=== PATIENT | female | born 1960 | race Caucasian/White ===

== ENCOUNTER 2023-07-28 06:26 | Emergency (ER) | payer MEDICARE, MEDICAID, SELFPAY ==
[2023-07-28 06:27] VITALS: BP 139/82; PULSE 85; RESP 16; TEMP 36.8; O2SAT 95; BMI 37.3
[2023-07-28 06:30] VITALS: BP 139/82; PULSE 86; RESP 17; TEMP 36.8; O2SAT 93
[2023-07-28] MEDS: HYDROmorphone 1 MG/ML Syringe IV (06:58)
[2023-07-28] MEDS: 0.9% Normal Saline (1000mL) 1,000 ML 999 ML IV (06:59)
[2023-07-28] MEDS: proCHLORPERazine 10 MG/2 ML Vial IV (06:59)
--- NOTE | 2023-07-28 07:49 | EX.ED.DYSGE1 ---
HPI History of Present Illness Chief Complaint: Nausea/Vomiting/Diarrhea Informant: patient Narrative Narrative: Patient is a 63-year-old female with past medical history of COPD as well as chronic pain on Belbuca. She states over the last 24 hours she has had recurrent bouts of nausea vomiting and diarrhea. She states that there is no blood or discoloration to the emesis or diarrhea. She denies any known sick contact. She states that there has been no recent antibiotic use travel outside the country or exposure to livestock. She denies any history of intestinal disorder. She states that she has not been unable to keep any of her home medication down despite having oral Zofran and with concern for dehydration presents for evaluation [facility] Medical History COPD (chronic obstructive pulmonary disease) Kidney stones On home oxygen therapy Home Medications diphenoxylate-atropine 2.5 mg-0.025 mg tablet (Lomotil) 1 tab PO TID PRN diarrhea 5 days #15 tabs 07/28/23 [Rx Last Taken Unknown] promethazine 12.5 mg tablet 12.5 mg PO TID PRN nausea and vomiting #21 tabs 07/28/23 [Rx Last Taken Unknown] Allergy/AdvReac Type Severity Reaction Status Date / Time ropinirole [From Requip] Allergy Severe Anaphylaxis Verified 07/28/23 06:35 latex Allergy Mild Rash Verified 07/28/23 06:35 mold AdvReac PT UNSURE Verified 07/28/23 06:35 OF REACTION Surgical History (Updated 07/28/23 @ 06:34 by Lexie Gaitan) H/O: hysterectomy History of appendectomy History of cholecystectomy Social History Smoking Status: Current every day smoker tobacco type: e-cigarettes ROS ROS ED Constitutional Constitutional ED: Reports chills, fever(s) and subjective Eyes Eyes: Denies change in vision ENT ENT ED: Denies sore throat Cardiovascular Cardiovascular: Denies chest pain Respiratory/Chest Respiratory/Chest: Denies cough or dyspnea Gastrointestinal Gastrointestinal: Reports abdominal pain, diarrhea, nausea and vomiting Genitourinary Genitourinary ED: Denies dysuria Musculoskeletal Musculoskeletal: Reports myalgias Integumentary Denies rash Neurologic Neurologic: Denies headache(s) or paresthesias Hematologic/Lymphatic Hematologic/Lymphatic: Denies easy bleeding or easy bruising EXAM Physical Exam Const Vital Signs: 07/28/23 06:27 07/28/23 06:30 07/28/23 08:26 Temperature 98.2 F 98.2 F Temperature Source Oral Oral Pulse Rate 85 86 89 Respiratory Rate 16 17 18 Blood Pressure 139/82 H 139/82 H 152/83 H Blood Pressure Mean 101 101 106 Pulse Ox 95 93 94 Oxygen Delivery Method Room Air Room Air Room Air Positive well nourished, well developed and obese General Appearance ED: well developed Nutritional Appearance: obese HEENT Reports dry mucous membranes HEENT Narrative: Mucous membranes are dry and tacky No secondary changes in the posterior pharynx to suggest infection No tongue or lip swelling no oral lesions no airway edema or compromise Mouth ED: Yes dry mucous membranes Mouth: dry mucous membranes Eyes PERRL and EOMs intact bilaterally General Eye ED: Negative for scleral icterus Neck supple Neck Narrative: No nuchal rigidity or meningeal signs noted Resp normal respiratory effort and clear to auscultation bilaterally Cardio regular rate and regular rhythm Rate: other Other Details: Radial and carotid pulses are equal and symmetric GI non-tender and non-distended GI Narrative: Abdomen is soft nontender nondistended with hyperactive bowel sounds No voluntary guarding or rigidity or pulsatile mass No fluid wave noted Auscultation: hyperactive bowel sounds Palpation: soft Extremity normal to inspection Neuro oriented x3, CN's II-XII intact bilaterally and no sensory deficits noted Sensorium / Orientation: alert Motor Exam: strength 5/5 throughout Psych mental status grossly normal Skin no rashes or lesions noted Skin Narrative: Skin turgor is increased General Skin Exam: Negative for jaundice MDM MDM MDM Narrative Medical decision making narrative: Patient presented to the ER with stable vitals but reported roughly 24 hours of nausea vomiting diarrhea. Differential diagnosis is for viral infection such as COVID versus influenza versus [place] or rotavirus. With 24 hours of persistent symptoms there is also concern for severe electrolyte derangement or acute kidney injury. The patient has had a hysterectomy cholecystectomy and appendectomy but she is not distended and is having bowel movements and passing gas going against concern for ileus or obstruction and therefore do not feel there is need for an emergent CT scan upon arrival. Patient blood work will be obtained to check for electrolyte derangement or [place] or potential pancreatitis and to be rehydrated with IV fluid and given IV Compazine as Zofran is failed at home. I feel that if labs revealed no clinically significant findings and patient reports feeling better with treatment then she be transitioned to oral medication and discharged home with outpatient follow-up Patient's labs and response to treatment are still pending and therefore patient be signed out to the day physician Dr. Jarquin History & Record Review Discussion w/independent historian: Patient Lab Data Labs: Laboratory Results - last 24 hr 07/28/23 08:28 WBC 12.2 H RBC 4.66 Hgb 14.0 Hct 42.2 MCV 90.6 MCH 30.0 MCHC 33.2 RDW Std Deviation 41.6 RDW Coeff of Pravin 12.6 Plt Count 285 MPV 9.8 Immature Gran % (Auto) 0.300 Neut % (Auto) 78.3 H Lymph % (Auto) 13.6 L [place] % (Auto) 7.5 Eos % (Auto) 0.1 Baso % (Auto) 0.2 Absolute Neuts (auto) 9.6 H Absolute Lymphs (auto) 1.67 Nucleated RBC % 0 Discharge Plan Triage Chief Complaint: Nausea/Vomiting/Diarrhea ED Provider: Trevor Douglass Dx/Rx/DC Orders Clinical Impression: Nausea vomiting and diarrhea, Dehydration, Chronic pain Instructions: Dehydration, ED Gastroenteritis, Viral (Adult) Prescriptions: New promethazine 12.5 mg tablet 12.5 mg PO TID PRN (Reason: nausea and vomiting) Qty: 21 0RF diphenoxylate-atropine [Lomotil] 2.5-0.025 mg tablet 1 tab PO TID PRN (Reason: diarrhea) 5 Days Qty: 15 0RF Primary Care Provider: Care Physician,No Primary Referrals: Norman Mack, [Non-Staff] - Activity Restrictions/Additional Instructions: Please keep yourself well-hydrated and use of Lomotil to stop the loose stool/diarrhea and you may add the Phenergan/promethazine on top of the Zofran if needed for further nausea/vomit control. If you have any further concerns or worsening symptoms please return for repeat evaluation
[2023-07-28] MEDS: Ondansetron 4 MG/2 ML Vial IV (08:15)
[2023-07-28] MEDS: HYDROmorphone 0.5 MG/0.5 ML SYRINGE IV (08:25)
[2023-07-28] MEDS: 0.9% Normal Saline (500mL Bag) 500 ML 999 ML IV (08:25)
[2023-07-28 08:26] VITALS: BP 152/83; PULSE 89; RESP 18; O2SAT 94
[2023-07-28 08:37] LABS: Absolute Lymphocyte Count 1.67 X10^3/uL (0.83-4.51); Absolute Neutrophil Count 9.6 X10^3/uL (2.0-7.7); Basophil# 0.02 X10^3/uL; Basophil% 0.2 % (0-1); Eosinophil# 0.01 X10^3/uL; Eosinophils% 0.1 % (0-5); Hematocrit 42.2 % (37-47); Lymphocyte # 1.67 X10^3/ul (0.83-4.51); Lymphocyte % 13.6 % (19-41); Mean Corp Hgb Conc 33.2 g/dL (32-36); Mean Corpuscular Volume 90.6 fL (81-99); Mean Platelet Vol. 9.8 fl (6.2-12.0); Monocyte# 0.92 X10^3/uL; Monocyte% 7.5 % (0-10); NRBC Flagged by Analyzer 0 % (0-5); Neutrophil # 9.58 X10^3/uL (2.7-7.7); Neutrophil % 78.3 % (47-70); Platelet Count 285 K/mm3 (150-450); RBC Distribution Width CV 12.6 % (11.6-14.6); RBC Distribution Width SD 41.6 fl (35.1-43.9); Red Blood Count 4.66 M/mm3 (4.2-5.4); White Blood Count 12.2 K/mm3 (4.4-11.0)
[2023-07-28 09:03] LABS: AST(SGOT) 18 U/L (15-37); Alanine Aminotransfer ALT/SGPT 20 U/L (13-56); Alkaline Phosphatase 73 U/L (45-117); Anion Gap 4 (5-15); BUN 8 mg/dL (7-18); Bilirubin, Direct 0.15 mg/dL (0.00-0.30); Calcium,Total 8.5 mg/dL (8.5-10.1); Chloride 106 mmol/L (98-107); Creatinine, Serum 0.73 mg/dL (0.55-1.02); EST Glomerular Filtration Rate 85 mL/min (>60); Est Glom Filt Rate - Afr Amer 103 mL/min (>60); Estimated Creatinine Clearance 79.98 ml/min; Globulin 4.4 g/dL (2.2-4.2); Glucose 137 mg/dL (74-106); Lipase 19 U/L (13-75); Magnesium 2.1 mg/dL (1.6-2.6); Potassium 3.5 mmol/L (3.5-5.1); Protein, Total 7.4 g/dL (6.4-8.2); Sodium Level 135 mmol/L (136-145)
[2023-07-28] MEDS: HYDROmorphone 0.5 MG/0.5 ML SYRINGE IM (09:35)
[2023-07-28] MEDS: proMETHazine 25 MG/ML Syringe 12.5 MG IM (09:35)
[2023-07-28 09:48] VITALS: BP 145/87; PULSE 117; RESP 20; O2SAT 95
== END 2023-07-28 09:50 | disposition home or self-care (01) ==
PROVIDERS: Emergency Medicine; Emergency Provider Emergency Medicine; Visit Provider Emergency Medicine
DX: R11.2 Nausea with vomiting, unspecified (principal); J44.9 Chronic obstructive pulmonary disease, unspecified; R19.7 Diarrhea, unspecified; E86.0 Dehydration; G89.29 Other chronic pain; F17.290 Nicotine dependence, other tobacco product, uncomplicated; E66.9 Obesity, unspecified; Z68.37 Body mass index [BMI] 37.0-37.9, adult; Z90.49 Acquired absence of other specified parts of digestive tract; Z99.81 Dependence on supplemental oxygen
CPT/HCPCS: 36415; 80048; 80076; 83690; 83735; 85025; 87631; 96361; 96372; 96374; 96375; 96376; 99282; J7040; A4216; J2405

== ENCOUNTER 2024-08-07 16:02 | Observation (INO) | payer MEDICARE, MEDICAID, SELFPAY ==
[2024-08-07 16:05] VITALS: BP 108/64; PULSE 68; RESP 18; TEMP 36.9; O2SAT 91
[2024-08-07 17:12] VITALS: BP 138/87; PULSE 78; RESP 16; TEMP 36.8; O2SAT 98
[2024-08-07] MEDS: Ondansetron 4 MG/2 ML Vial IV (17:40)
[2024-08-07] MEDS: 0.9% Normal Saline (1000mL) 1,000 ML 1000 ML IV (17:40)
[2024-08-07] MEDS: HYDROmorphone 1 MG/ML Syringe IV ×3 (17:41→22:46)
[2024-08-07 17:45] LABS: Color, Urine Yellow (Yellow); Glucose, Dipstick Normal (Normal); Ketone-Dipstick 50 mg/dl (Negative); Leukocyte Esterase-Dipstick 500 /ul (Negative); Nitrite-Dipstick Negative (Negative); Occult Blood-Urine 25 /ul (Negative); Protein-Dipstick 30 mg/dl (Negative); Urine Clarity Sl. Cloudy (Clear); Urine Urobilinogen 1 mg/dl (Normal)
[2024-08-07 17:53] LABS: Urine Bilirubin Dipstick 1 mg/dL (Negative)
[2024-08-07 18:00] VITALS: BP 138/59; PULSE 77; RESP 16; TEMP 36.9; O2SAT 95
[2024-08-07 18:00] LABS: ALB/GLOB Ratio 0.7 RATIO (0.9-2.4); AST(SGOT) 37 U/L (15-37); Alanine Aminotransfer ALT/SGPT 27 U/L (13-56); Albumin, Serum 3.2 g/dL (3.2-5.0); Alkaline Phosphatase 69 U/L (45-117); Anion Gap 8 (5-15); BUN 15 mg/dL (7-18); CPK Total, Creatine Kinase 115 U/L (26-192); Calcium,Total 9.1 mg/dL (8.5-10.1); Chloride 98 mmol/L (98-107); Creatinine, Serum 0.94 mg/dL (0.55-1.02); EST Glomerular Filtration Rate 63 mL/min (>60); Est Glom Filt Rate - Afr Amer 77 mL/min (>60); Globulin 4.8 g/dL (2.2-4.2); Glucose 102 mg/dL (74-106); Magnesium 2.2 mg/dL (1.6-2.6); Potassium 3.9 mmol/L (3.5-5.1); Sodium Level 134 mmol/L (136-145)
--- NOTE | 2024-08-07 18:00 | RAD_ITS ---
PROCEDURE: AP and lateral chest radiographs, two views TECHNIQUE: AP and lateral chest radiographs were obtained. COMPARISON: None. FINDINGS: The cardiomediastinal silhouette is unremarkable. Mild elevation right hemidiaphragm. The bones are osteopenic with degenerative changes in the spine. The lungs are mildly hyperinflated. No focal airspace consolidation, pneumothorax, or pleural effusion. RAD/Chest PA and Lateral IMPRESSION: Pulmonary hyperinflation. No acute cardiopulmonary process is demonstrated. If there are persistent symptoms or clinical concern, short-term follow-up CT e valuation may be helpful. Reading Location: [facility]
[2024-08-07 18:14] LABS: White Blood Cells >100 SEEN /hpf (0-5)
[2024-08-07 18:15] LABS: Bacteria 1+ /hpf (None Seen); Mucous, Urine 1+ /hpf (<or=2+); Red Blood Cells-Urine 0-5 SEEN /hpf (0-5); Squamous Epithelial Cells - UA 10-25 SEEN /hpf (5-10)
--- NOTE | 2024-08-07 18:35 | CM.ED ---
Social work Reason for referral: no PCP Referral source: case find This SW identified patient's lack of PCP and need for resources. This SW entered patient's room, introducing self and role at [facility]. Patient welcomed SW visit and introduced patient's grandson, Cr, and grandson's , Meagan, who were present at bedside. Patient reported having a new PCP who patient forgot the name of earlier when asked by registration. Patient reports seeing Dr. Pierce in [place] for primary care; this was updated on patient's chart. Patient denied further resources at this time. Victoria Moses, ARCHITECTURE DRAFTER, AFFILIATE MARKETING SPECIALIST
[2024-08-07 18:42] VITALS: PULSE 68; RESP 20
[2024-08-07] MEDS: Ipratropium/Albuterol Sulfate 3 ML AMPUL.NEB INHALATION (18:42)
[2024-08-07 18:49] LABS: Absolute Lymphocyte Count 1.24 X10^3/uL (0.83-4.51); Absolute Neutrophil Count 4.2 X10^3/uL (2.0-7.7); Basophil# 0.02 X10^3/uL; Basophil% 0.3 % (0-1); Hematocrit 44.4 % (37-47); Hemoglobin 14.5 g/dL (12.0-15.0); Lymphocyte # 1.24 X10^3/ul (0.83-4.51); Lymphocyte % 18.4 % (19-41); Mean Corp Hgb Conc 32.7 g/dL (32-36); Mean Corpuscular Hgb 29.3 pg (27.0-32.0); Mean Corpuscular Volume 89.7 fL (81-99); Mean Platelet Vol. 9.9 fl (6.2-12.0); Monocyte# 1.23 X10^3/uL; Monocyte% 18.2 % (0-10); NRBC Flagged by Analyzer 0 % (0-5); Neutrophil # 4.24 X10^3/uL (2.7-7.7); Neutrophil % 62.8 % (47-70); Platelet Count 259 K/mm3 (150-450); RBC Distribution Width CV 12.3 % (11.6-14.6); RBC Distribution Width SD 40.3 fl (35.1-43.9); Red Blood Count 4.95 M/mm3 (4.2-5.4); White Blood Count 6.8 K/mm3 (4.4-11.0)
[2024-08-07 20:00] VITALS: BP 138/88; PULSE 78
--- NOTE | 2024-08-07 21:29 | PCM.HP.STD ---
HPI - General General Date of Admission: 08/07/24 Date of Service: 08/07/24 Chief Complaint: Generalized weakness HPI Narrative WILBERT JOHNSON, is a 64 F who presents to the emergency room with chief complaint of generalized weakness. Patient has significant past medical history of COPD with [id number] history of smoking for which she uses 2 L nasal cannula oxygen routinely. Patient reports feeling more significantly weak and having trouble ambulating on her own safely today. She also has concurrent urinary tract symptoms with dysuria. In the emergency room she is diagnosed positive for influenza A. She also has significant past medical history of fibromyalgia for which she takes Belbuca from pain management. Patient does not feel she can go home due to her weakness. She will be admitted overnight for observation for treatment of urinary tract infection and started on Tamiflu for her influenza with anticipated discharge tomorrow. [facility] Medical History (Updated 08/07/24 @ 21:[address] Julio Blake MD) COPD (chronic obstructive pulmonary disease) On home oxygen therapy Kidney stones Home Medications ?Medication ?Instructions ?Recorded ?Last Taken ?Type Saccharomyces boulardii 250 mg 250 mg PO DAILY 08/07/24 Unknown History capsule (Probiotic (S.boulardii)) budesonide 160 mcg-glycopyr 9 2 inh inhalation BID 08/07/24 Unknown History mcg-formot 4.8 mcg/actuation HFA inhaler (Breztri Aerosphere) cholecalciferol (vitamin D3) 125 125 mcg PO DAILY 08/07/24 Unknown History mcg (5,000 unit) capsule fexofenadine 180 mg tablet 180 mg PO DAILY 08/07/24 Unknown History (Allergy Relief (fexofenadine)) fluoxetine 20 mg capsule 20 mg PO QHS 08/07/24 Unknown History fluoxetine 40 mg capsule 40 mg PO DAILY 08/07/24 Unknown History fluticasone propionate 50 1 spray intranasal DAILY 08/07/24 Unknown History mcg/actuation nasal spray,suspension folic acid 1 mg tablet 1 mg PO DAILY 08/07/24 Unknown History gabapentin 800 mg tablet 800 mg PO 4X/DAY 08/07/24 Unknown History omeprazole 40 mg capsule,delayed 40 mg PO DAILY 08/07/24 Unknown History release potassium chloride 20 mEq 20 meq PO DAILY 08/07/24 Unknown History tablet,extended release(part/cryst) roflumilast 500 mcg tablet 500 mcg PO DAILY 08/07/24 Unknown History sucralfate 1 gram tablet 1 g PO DAILY 08/07/24 Unknown History tizanidine 4 mg tablet 4 mg PO TID PRN muscle spasticity 08/07/24 Unknown History vitamin B complex 1 cap PO DAILY 08/07/24 Unknown History Allergy/AdvReac Type Severity Reaction Status Date / Time ropinirole (From Requip) Allergy Severe Anaphylaxis Verified 08/07/24 16:05 latex Allergy Mild Rash Verified 08/07/24 16:05 mold AdvReac PT UNSURE Verified 08/07/24 16:05 OF REACTION Surgical History H/O: hysterectomy History of appendectomy History of cholecystectomy Social History (Updated 08/07/24 @ 16:58 by Agustina Quiros) household members: family housing: house Smoking Status: Current every day smoker tobacco type: e-cigarettes ROS Constitutional Constitutional: Reports chills and fever(s) Eyes Eyes: Denies blurry vision ENT HEENT: Denies abnormal hearing Cardiovascular Cardiovascular: Denies chest pain Respiratory/Chest Respiratory/Chest: Reports cough and shortness of breath with exertion Gastrointestinal Gastrointestinal: Denies abdominal pain Genitourinary Genitourinary: Reports dysuria Musculoskeletal Musculoskeletal: Reports back pain and joint pain Integumentary Integumentary: Denies dry skin Neurologic Neurologic: Denies abnormal speech Psychiatric Psychiatric: Reports anxiety Vital Signs Vital Signs Vital Signs: 08/07/24 16:05 08/07/24 16:57 08/07/24 17:12 Temperature 98.4 F 98.3 F Temperature Source Oral Oral Pulse Rate 68 78 Respiratory Rate 18 16 Respiratory Effort Normal Non-Labored Respiratory Pattern Normal Blood Pressure 108/64 138/87 H Blood Pressure Mean 78 104 Pulse Ox 91 98 Oxygen Delivery Method Room Air Nasal Cannula Oxygen Flow Rate (L/min) 2 08/07/24 18:00 08/07/24 18:42 08/07/24 20:00 Temperature 98.5 F Temperature Source Oral Pulse Rate 77 68 78 Respiratory Rate 16 20 H Respiratory Effort Respiratory Pattern Normal Blood Pressure 138/59 H 138/88 H Blood Pressure Mean 85 104 Pulse Ox 95 Oxygen Delivery Method Room Air Oxygen Flow Rate (L/min) Physical Exam Const oriented x3 General Appearance: cooperative and well developed HEENT normocephalic and head/scalp atraumatic Eyes PERRL Neck no lymphadenopathy Lymph Lymphatic: no lymphadenopathy noted Resp normal respiratory effort and normal air movement Auscultation: wheezes expiratory wheezes Cardio regular rate, regular rhythm, S1 normal heart sound, S2 normal heart sound and no murmurs GI normal to inspection, nondistended, normoactive bowel sounds Extremity normal capillary refill Skin General Skin Exam: no breakdown and turgor normal Neuro no focal motor deficits and no sensory deficits noted Psych thought process normal, cooperative and affect normal Results Lab / Micro Data 08/07/24 18:15 08/07/24 17:33 Labs: Laboratory Results - last 24 hr 08/07/24 17:33: WBC Cancelled, Corrected WBC Cancelled, RBC Cancelled, Hgb Cancelled, Hct Cancelled, MCV Cancelled, MCH Cancelled, MCHC Cancelled, RDW Std Deviation Cancelled, RDW Coeff of Pravin Cancelled, Plt Count Cancelled, MPV Cancelled, Immature Gran % (Auto) Cancelled, Neut % (Auto) Cancelled, Lymph % (Auto) Cancelled, [place] % (Auto) Cancelled, Eos % (Auto) Cancelled, Baso % (Auto) Cancelled, Absolute Neuts (auto) Cancelled, Absolute Lymphs (auto) Cancelled, Total Counted Cancelled, Neutrophils % (Manual) Cancelled, Band Neutrophils % Cancelled, Lymphocytes % (Manual) Cancelled, Monocytes % (Manual) Cancelled, Eosinophils % (Manual) Cancelled, Basophils % (Manual) Cancelled, Metamyelocytes % Cancelled, Myelocytes % Cancelled, Promyelocytes % Cancelled, Blast Cells % Cancelled, Plasma Cell % (Manual) Cancelled, Other Cells % Cancelled, Nucleated RBC % Cancelled, Nucleated RBCs/100 WBC Cancelled, Differential Comment Cancelled, Diff Path Review Cancelled, Hypersegmented Neuts Cancelled, Atypical Lymphocytes Cancelled, Reactive Lymphocytes Cancelled, Smudge Cells Cancelled, Toxic Granulation Cancelled, Toxic Vacuolation Cancelled, Dohle Bodies Cancelled, [place] Rods Cancelled, Platelet Estimate Cancelled, Plt Morphology Comment Cancelled, RBC Morphology Cancelled 08/07/24 17:33: RBC Morphology Cancelled, Polychromasia Cancelled, Hypochromasia Cancelled, Basophilic Stippling Cancelled, Anisocytosis Cancelled, Microcytosis Cancelled, Macrocytosis Cancelled, Spherocytes Cancelled, Sickle Cells Cancelled, Target Cells Cancelled, Tear Drop Cells Cancelled, Ovalocytes Cancelled, Stomatocytes Cancelled, [place] Bodies Cancelled, [place] Cells Cancelled, Bite Cells Cancelled, Crenated Cell Cancelled, Acanthocytes (Spur) Cancelled, Rouleaux Cancelled, Schistocytes Cancelled, Sodium 134 L, Potassium 3.9, Chloride 98, Carbon Dioxide 29.0, Anion Gap 8, BUN 15, Creatinine 0.94, Est GFR (MDRD) Af Amer 77, Est GFR (MDRD) Non-Af 63, BUN/Creatinine Ratio 16.0, Glucose 102, Calcium 9.1, Magnesium 2.2, Total Bilirubin 0.30, AST 37, ALT 27, Alkaline Phosphatase 69, Total Creatine Kinase 115, Total Protein 8.0, Albumin 3.2, Globulin 4.8 H, Albumin/Globulin Ratio 0.7 L, Urine Color Yellow, Urine Clarity Sl. Cloudy, Urine pH 5.0, Ur Specific [place] 1.030, Urine Protein 30 H, Urine Glucose (UA) Normal, Urine Ketones 50 H, Urine Occult Blood 25 H, Urine Nitrite Negative, Urine Bilirubin 1 H, Urine Urobilinogen 1 H, Ur Leukocyte Esterase 500 H, Urine RBC 0-5 SEEN, Urine WBC >100 SEEN, Ur Squamous Epith Cells 10-25 SEEN, Urine Bacteria 1+, Urine Mucus 1+ 08/07/24 18:15: WBC 6.8, RBC 4.95, Hgb 14.5, Hct 44.4, MCV 89.7, MCH 29.3, MCHC 32.7, RDW Std Deviation 40.3, RDW Coeff of Pravin 12.3, Plt Count 259, MPV 9.9, Immature Gran % (Auto) 0.300, Neut % (Auto) 62.8, Lymph % (Auto) 18.4 L, [place] % (Auto) 18.2 H, Eos % (Auto) 0.0, Baso % (Auto) 0.3, Absolute Neuts (auto) 4.2, Absolute Lymphs (auto) 1.24, Nucleated RBC % 0 Micro: Microbiology 08/07/24 17:35 Mucosa - Nose SARS-CoV-2, Influenza & RSV (PCR) - Final Influenzae A Imaging Radiology Impression Chest X-Ray 08/07/24 18:00 IMPRESSION: Pulmonary hyperinflation. No acute cardiopulmonary process is demonstrated. If there are persistent symptoms or clinical concern, short-term follow-up CT evaluation may be helpful. Reading [facility] Assessment & Plan Assessment/Plan (1) Influenza A: (2) UTI (urinary tract infection): (3) Fibromyalgia: (4) On home oxygen therapy: (5) COPD (chronic obstructive pulmonary disease): PLAN: Plan 1 generalized weakness, secondary to urinary tract infection and influenza A infection.?Admit patient to general medical floor, initiate Tamiflu 75 mg p.o. twice daily for influenza and Rocephin at 1 g IV every 24 hours to treat her urinary tract infection. Patient is able to tolerate p.o. Will encourage p.o. fluids overnight through the morning 2. COPD?continue routine oxygen treatment at 2 L nasal cannula and add as needed albuterol 3. Fibromyalgia patient is on chronic opiates?will bridge patient overnight with as needed Dilaudid 4. DVT prophylaxis?SCDs
[2024-08-07] MEDS: Ceftriaxone 1 GM/50 ML BAG IV (21:41)
--- NOTE | 2024-08-07 21:55 | EDS_ITS ---
HPI History of Present Illness Chief Complaint: General Illness Informant: patient Narrative Narrative: Patient is a 64-year-old female with history of fibromyalgia, chronic pain (on [place]) and gastric ulcer disease presenting with 3 days of flulike symptoms. Patient states that she has been having headache from hell for the past 3 days. States she does have a history of sinus headaches. She states she is having bilateral ear pain and feels like there icepick's in her ear starting this morning. She notes she has had a mild cough. She does have a history of COPD wears 2 L of oxygen at baseline. Denies any associated chest pain. Does have nausea. Is also management of urinary tract infection she has had some urinary frequency. Her daughter thought she saw some blood in her urine. She has chronic urgency. She denies any dysuria. She is complaining of lower abdominal/suprapubic pain. She has had sick contacts at home. She is most distressed because she has not been able to take her chronic pain medication because of her severe nausea and this is making her chronic pain worse as well. Denies any associated numbness or tingling no other complaints or concerns reported. [facility] Medical History COPD (chronic obstructive pulmonary disease) On home oxygen therapy Kidney stones Home Medications ?Medication ?Instructions ?Recorded ?Last Taken ?Type Saccharomyces boulardii 250 mg 250 mg PO DAILY 5 Unknown History capsule (Probiotic (S.boulardii)) budesonide 160 mcg-glycopyr 9 2 inh inhalation BID Unknown History mcg-formot 4.8 mcg/actuation HFA inhaler (Breztri Aerosphere) cholecalciferol (vitamin D3) 125 125 mcg PO DAILY 07/22 01/12 Unknown History mcg (5,000 unit) capsule fexofenadine 180 mg tablet 180 mg PO DAILY 08/07/24 Un known History (Allergy Relief (fexofenadine)) fluoxetine 20 mg capsule 20 mg PO QHS 08/07/24 Unknow n History fluoxetine 40 mg capsule 40 mg PO DAILY 08/07/24 Unkn own History fluticasone propionate 50 1 spray intranasal DAILY Unknown History mcg/actuation nasal spray,suspension folic acid 1 mg tablet 1 mg PO DAILY 08/07/24 Unkno wn History gabapentin 800 mg tablet 800 mg PO 4X/DAY 08/07/24 Un known History omeprazole 40 mg capsule,delayed 40 mg PO DAILY Unknown History release potassium chloride 20 mEq 20 meq PO DAILY 08/07/24 Unk nown History tablet,extended release(part/cryst) roflumilast 500 mcg tablet 500 mcg PO DAILY 08/07/24 U nknown History sucralfate 1 gram tablet 1 g PO DAILY 08/07/24 Unknow n History tizanidine 4 mg tablet 4 mg PO TID PRN muscle spast icity 08/07/24 Unknown History vitamin B complex 1 cap PO DAILY 08/07/24 Unkn own History Allergy/AdvReac Type Severity Reaction Status Date / Time ropinirole (From Requip) Allergy Severe Anaphylaxis Verified 08/07/24 16:05 latex Allergy Mild Rash Verified 08/07/24 16:05 mold AdvReac PT UNSURE Verified 08/07/24 16:05 OF REACTION Surgical History H/O: hysterectomy History of appendectomy History of cholecystectomy Social History household members: family housing: house Smoking Status: Current every day smoker tobacco type: e-cigarettes ROS ROS ED Constitutional Constitutional ED: Reports chills ENT ENT ED: Reports ear pain bilateral, sore throat and other Details: congestion Cardiovascular Cardiovascular: Denies chest pain Respiratory/Chest Respiratory/Chest: Reports cough and dyspnea Gastrointestinal Gastrointestinal: Reports abdominal pain and nausea; Denies constipation, diarrhea or vomiting Genitourinary Genitourinary ED: Reports dysuria, hematuria and urinary frequency Musculoskeletal Musculoskeletal: Reports arthralgias and myalgias Integumentary Denies rash Neurologic Neurologic: Reports headache(s) and weakness Psychiatric Psychiatric: Reports anxiety Hematologic/Lymphatic Hematologic/Lymphatic: Denies easy bleeding or easy bruising EXAM Physical Exam Const Vital Signs: 08/07/24 16:05 08/07/24 16:57 08/07/24 17:12 Temperature 98.4 F 98.3 F Temperature Source Oral Oral Pulse Rate 68 78 Respiratory Rate 18 16 Respiratory Effort Normal Non-Labored Respiratory Pattern Normal Blood Pressure 108/64 138/87 H Blood Pressure Mean 78 104 Pulse Ox 91 98 Oxygen Delivery Method Room Air Nasal Cannula Oxygen Flow Rate (L/min) 2 08/07/24 18:00 08/07/24 18:42 08/07/24 20:00 Temperature 98.5 F Temperature Source Oral Pulse Rate 77 68 78 Respiratory Rate 16 20 H Respiratory Effort Respiratory Pattern Normal Blood Pressure 138/59 H 138/88 H Blood Pressure Mean 85 104 Pulse Ox 95 Oxygen Delivery Method Room Air Oxygen Flow Rate (L/min) Positive well nourished and well developed General Appearance ED: well developed and NAD HEENT Reports TM's clear and dry mucous membranes Tympanic Membrane ED: Yes TM's clear Mouth ED: Yes dry mucous membranes Mouth: dry mucous membranes Eyes PERRL Neck no lymphadenopathy, supple and no JVD Chest Wall inspection of chest normal Resp Auscultation: wheezes and diminished lung sounds bilateral lower Cardio regular rate and regular rhythm GI normal to inspection, nondistended, normoactive bowel sounds Auscultation: normoactive bowel sounds Palpation: tender suprapubic Extremity normal to inspection General Extremety ED: Negative for edema General Extremity: Negative for edema Neuro oriented x3 Sensorium / Orientation: alert Motor Exam: general weakness Psych mental status grossly normal Skin no rashes or lesions noted and no wounds MDM MDM MDM Narrative Medical decision making narrative: Patient is a 4-year-old female with history of COPD and chronic pain/fibromyalgia on 2 L of oxygen at baseline presenting with nausea, worsening respiratory symptoms as well as UTI symptoms. Differential includes pneumonia, sepsis, COPD exacerbation, chronic pain exacerbation, influenza, urinary tract infection, opioid withdrawal. Her pain is diffuse in her headache and I do not suspect meningitis. She does not have any nuchal rigidity. Is given Dilaudid for pain control x 2. Given IV fluids. Given a breathing treatment with DuoNebs. Patient is found to have influenza A. In addition urinalysis consistent with infection with greater than 100 white blood cells and 1+ bacteria. Patient started on IV Rocephin. No prior urine cultures to compare to. She does not have a leukocytosis. Attempted to ambulate patient but she states that she is still in too much pain and feels too weak to ambulate. She has not felt comfortable going home. She states she has to be stairs in her house. Suspect this is more debility associate with her being off of her pain medication, her acute influenza and urinary tract infection. Will be brought in for further treatments, antibiotics and pain control. Case discussed with Dr. Blake Lab Data Attestation: I reviewed the patient's lab results. Labs: Laboratory Results - last 24 hr 08/07/24 08/07/24 08/07/24 17:33 17:33 18:15 WBC Cancelled 6.8 Corrected WBC Cancelled RBC Cancelled 4.95 Hgb Cancelled 14.5 Hct Cancelled 44.4 MCV Cancelled 89.7 MCH Cancelled 29.3 MCHC Cancelled 32.7 RDW Std Deviation Cancelled 40.3 RDW Coeff of Pravin Cancelled 12.3 Plt Count Cancelled 259 MPV Cancelled 9.9 Immature Gran % (Auto) Cancelled 0.300 Neut % (Auto) Cancelled 62.8 Lymph % (Auto) Cancelled 18.4 L Ida % (Auto) Cancelled 18.2 H Eos % (Auto) Cancelled 0.0 Baso % (Auto) Cancelled 0.3 Absolute Neuts (auto) Cancelled 4.2 Absolute Lymphs (auto) Cancelled 1.24 Total Counted Cancelled Neutrophils % (Manual) Cancelled Band Neutrophils % Cancelled Lymphocytes % (Manual) Cancelled Monocytes % (Manual) Cancelled Eosinophils % (Manual) Cancelled Basophils % (Manual) Cancelled Metamyelocytes % Cancelled Myelocytes % Cancelled Promyelocytes % Cancelled Blast Cells % Cancelled Plasma Cell % (Manual) Cancelled Other Cells % Cancelled Nucleated RBC % Cancelled 0 Nucleated RBCs/100 WBC Cancelled Differential Comment Cancelled Diff Path Review Cancelled Hypersegmented Neuts Cancelled Atypical Lymphocytes Cancelled Reactive Lymphocytes Cancelled Smudge Cells Cancelled Toxic Granulation Cancelled Toxic Vacuolation Cancelled Dohle Bodies Cancelled Belg[place] Rods Cancelled Platelet Estimate Cancelled Plt Morphology Comment Cancelled RBC Morphology Cancelled Cancelled Polychromasia Cancelled Hypochromasia Cancelled Basophilic Stippling Cancelled Anisocytosis Cancelled Microcytosis Cancelled Macrocytosis Cancelled Spherocytes Cancelled Sickle Cells Cancelled Target Cells Cancelled Tear Drop Cells Cancelled Ovalocytes Cancelled Stomatocytes Cancelled Mao-Cutten Bodies Cancelled Garvin Cells Cancelled Bite Cells Cancelled Crenated Cell Cancelled Acanthocytes (Spur) Cancelled Rouleaux Cancelled Schistocytes Cancelled Sodium 134 L Potassium 3.9 Chloride 98 Carbon Dioxide 29.0 Anion Gap 8 BUN 15 Creatinine 0.94 Est GFR (MDRD) Af Amer 77 Est GFR (MDRD) Non-Af 63 BUN/Creatinine Ratio 16.0 Glucose 102 Calcium 9.1 Magnesium 2.2 Total Bilirubin 0.30 AST 37 ALT 27 Alkaline Phosphatase 69 Total Creatine Kinase 115 Total Protein 8.0 Albumin 3.2 Globulin 4.8 H Albumin/Globulin Ratio 0.7 L Urine Color Yellow Urine Clarity Sl. Cloudy Urine pH 5.0 Ur Specific [place] 1.030 Urine Protein 30 H Urine Glucose (UA) Normal Urine Ketones 50 H Urine Occult Blood 25 H Urine Nitrite Negative Urine Bilirubin 1 H Urine Urobilinogen 1 H Ur Leukocyte Esterase 500 H Urine RBC 0-5 SEEN Urine WBC >100 SEEN Ur Squamous Epith Cells 10-25 SEEN Urine Bacteria 1+ Urine Mucus 1+ Radiography Chest X-Ray - ED: 2 View, Read by ED Physician, Read by Radiologist and No Acute Disease Diagnostic Testing: Clinical Impression(s) from Imaging Studies Chest X-Ray 08/07/24 18:00 IMPRESSION: Pulmonary hyperinflation. No acute cardiopulmonary process is demonstrated. If there are persistent symptoms or clinical concern, short-term follow-up CT evaluation may be helpful. Reading Location: [facility] Rhythm Strip Rhythm Strip: Sinus Rhythm Rate: 69 Ectopy: None EKG Initial EKG: Attestation: I personally reviewed and interpreted this EKG as follows: Interpretation: Sinus Rhythm Comments: Normal sinus rhythm at a rate of 69 bpm Normal axis Normal intervals Nonspecific T wave changes Prior EKG tracings: available for review Prior: No Prior Management Discussion w/another healthcare provider: Hospitalist Discharge Plan Dx/Rx/DC Orders Clinical Impression: Influenza A, UTI (urinary tract infection), On home oxygen therapy, COPD (chronic obstructive pulmonary disease), Fibromyalgia Disposition Disposition: Acute Care [facility] Discharge Date/Time: 08/08/24 01:10
[2024-08-07 22:00] VITALS: BP 147/99; PULSE 68; O2SAT 99
[2024-08-07] MEDS: Oseltamivir Phosphate 75 MG Capsule PO (22:22)
[2024-08-07] MEDS: Acetaminophen 325 MG Tablet 650 MG PO (22:46)
[2024-08-08] VITALS (8 sets, daily range): BP systolic 112–145; BP diastolic 60–77; PULSE 57–78; RESP 14–18; TEMP 36.7–37.2; O2SAT 91–97; BMI 35.3
[2024-08-08] MEDS: FLUoxetine 20 MG Capsule PO (02:00)
[2024-08-08] MEDS: Gabapentin 800 MG Tablet PO ×3 (02:00→14:47)
[2024-08-08] MEDS: tiZANidine HCl 2 MG Tablet 4 MG PO (02:01)
[2024-08-08] MEDS: HYDROmorphone 2 MG TABLET PO ×4 (02:01→15:47)
[2024-08-08 06:35] LABS: Absolute Lymphocyte Count 2.24 X10^3/uL (0.83-4.51); Absolute Neutrophil Count 2.2 X10^3/uL (2.0-7.7); Basophil# 0.03 X10^3/uL; Basophil% 0.5 % (0-1); Eosinophil# 0.01 X10^3/uL; Eosinophils% 0.2 % (0-5); Hematocrit 41.4 % (37-47); Hemoglobin 13.8 g/dL (12.0-15.0); Lymphocyte # 2.24 X10^3/ul (0.83-4.51); Lymphocyte % 40.1 % (19-41); Mean Corp Hgb Conc 33.3 g/dL (32-36); Monocyte# 1.12 X10^3/uL; Monocyte% 20.1 % (0-10); NRBC Flagged by Analyzer 0 % (0-5); Neutrophil # 2.17 X10^3/uL (2.7-7.7); Neutrophil % 38.9 % (47-70); Platelet Count 248 K/mm3 (150-450); RBC Distribution Width CV 12.5 % (11.6-14.6); RBC Distribution Width SD 41.1 fl (35.1-43.9); White Blood Count 5.6 K/mm3 (4.4-11.0)
[2024-08-08] MEDS: Pantoprazole Sodium 40 MG Tablet PO (06:49)
[2024-08-08] MEDS: Sucralfate 1 GM Tablet PO (06:49)
[2024-08-08] MEDS: Ipratropium/Albuterol Sulfate 3 ML AMPUL.NEB INHALATION ×3 (07:06→19:10)
[2024-08-08] MEDS: Budesonide Respules 0.5 MG/2 ML AMPUL.NEB. INHALATION ×2 (07:06→19:11)
[2024-08-08 08:36] LABS: Anion Gap 6 (5-15); BUN 14 mg/dL (7-18); BUN/Creat Ratio 18.3 RATIO (10-20); Calcium,Total 8.5 mg/dL (8.5-10.1); Chloride 102 mmol/L (98-107); Creatinine, Serum 0.77 mg/dL (0.55-1.02); EST Glomerular Filtration Rate 80 mL/min (>60); Est Glom Filt Rate - Afr Amer 97 mL/min (>60); Estimated Creatinine Clearance 77.29 ml/min; Glucose 85 mg/dL (74-106); Potassium 3.6 mmol/L (3.5-5.1); Sodium Level 136 mmol/L (136-145)
--- NOTE | 2024-08-08 10:54 | DS.PCM_ITS ---
Providers Date of Admission: 08/07/24 Date of Discharge: 08/08/24 Primary Care Physician: Dr. Mayra Pierce MD Reason For Visit: GENERALIZED WEAKNESS, UTI, INFLUENZA A Diagnosis Discharge Diagnosis (1) Influenza A: Status: Acute Code(s): J10.1 - Influenza due to other identified influenza virus with other respiratory manifestations (2) UTI (urinary tract infection): Status: Acute Code(s): N39.0 - Urinary tract infection, site not specified (3) Fibromyalgia: Status: Acute Code(s): M79.7 - Fibromyalgia (4) On home oxygen therapy: Status: Acute Code(s): Z99.81 - Dependence on supplemental oxygen (5) COPD (chronic obstructive pulmonary disease): Status: Chronic Code(s): J44.9 - Chronic obstructive pulmonary disease, unspecified Medications at Discharge Home Medications Saccharomyces boulardii 250 mg capsule (Probiotic (S.boulardii)) 250 mg PO DAILY 08/07/24 budesonide 160 mcg-glycopyr 9 mcg-formot 4.8 mcg/actuation HFA inhaler (Breztri Aerosphere) 2 inh inhalation BID 08/07/24 cholecalciferol (vitamin D3) 125 mcg (5,000 unit) capsule 125 mcg PO DAILY 08/07/24 fexofenadine 180 mg tablet (Allergy Relief (fexofenadine)) 180 mg PO DAILY 08/07/24 fluoxetine 20 mg capsule 20 mg PO QHS 08/07/24 fluoxetine 40 mg capsule 40 mg PO DAILY 08/07/24 fluticasone propionate 50 mcg/actuation nasal spray,suspension 1 spray intranasal DAILY 08/07/24 folic acid 1 mg tablet 1 mg PO DAILY 08/07/24 gabapentin 800 mg tablet 800 mg PO 4X/DAY 08/07/24 omeprazole 40 mg capsule,delayed release 40 mg PO DAILY 08/07/24 potassium chloride 20 mEq tablet,extended release(part/cryst) 20 meq PO DAILY 08/07/24 roflumilast 500 mcg tablet 500 mcg PO DAILY 08/07/24 sucralfate 1 gram tablet 1 g PO DAILY 08/07/24 tizanidine 4 mg tablet 4 mg PO TID PRN muscle spasticity 08/07/24 vitamin B complex 1 cap PO DAILY 08/07/24 cephalexin 500 mg capsule 500 mg PO BID 3 days #6 caps 08/08/24 oseltamivir 75 mg capsule 75 mg PO BID 3 days #6 caps 08/08/24 Hospital Course Operations None Procedures EKG and - (Chest x-ray) Summary of Care Provided Minutes Spent on Discharge: 35 Hospital Course: Patient is a 64-year-old female who presented [facility] ED on 08/07/2024 with worsening weakness and generalized pain. 1. Mild acute on chronic debility in setting of influenza A infection ? Positive for influenza A on admit. Patient lives at home alone and felt weaker than her baseline over the past few days. Also reported significantly more generalized pain in similar distribution to her fibromyalgia. Suspected these were secondary to the influenza infection. Improving on hospital day 2 and stable on home oxygen. Will complete 5-day course of Tamiflu on discharge. Discharged home in stable condition with plan for outpatient physical therapy. 2. Mild acute cystitis ? UA mildly infectious appearing on admit. Urine culture pending on discharge. Treated empirically with IV ceftriaxone while inpatient and discharged on p.o. Keflex to complete 5-day course of antibiotics total. 3. Fibromyalgia ? Follows with pain management. Treated with p.o. Dilaudid as needed while inpatient, along with home gabapentin and tizanidine as needed. Okay to resume home buprenorphine on discharge. 4. COPD with chronic respiratory failure ? Stable on home 2 L during hospitalization, no concern for acute exacerbation. Chest x-ray on admit unremarkable. Continue home inhalers. 5. Class II obesity ? BMI 35.4 on admit. Complicated hospital course, care and prognosis. 6. GERD ? Continue home PPI. 7. Depression/anxiety ? Continue home fluoxetine. Total clinical time spent by myself addressing the patient's medical issues, reviewing all the data, and collaborating with patient's care team: 35 minutes. Physical Exam Const alert, oriented x3 and no apparent distress Constitutional Narrative: Upper middle-aged female, class II obesity, mildly fatigued appearing but otherwise laying back comfortably in bed, conversing normally, in no acute distress. General Appearance: cooperative and comfortable HEENT normocephalic, head/scalp atraumatic, hearing grossly normal bilaterally, nasal mucous membranes and turbinates normal and moist oral mucous membranes Eyes PERRL, EOMs intact bilaterally and conjunctivae normal Neck full ROM Chest inspection of chest normal Resp normal respiratory effort and no use of accessory muscles Resp Narrative: Breathing comfortably on home 2 L nasal cannula. Mildly decreased breath sounds bilaterally but no wheezing or rales noted. Cardio regular rate, regular rhythm, no murmurs and peripheral pulses 2+ throughout GI normal to inspection, nondistended, normoactive bowel sounds, soft to palpation, non-tender and non-distended Back/Spine normal ROM Extremity normal to inspection, full ROM and no pedal edema Skin no rashes or lesions noted Neuro moves all extremities and no focal motor deficits Speech: speech normal Motor Exam: strength 5/5 throughout Psych mental status grossly normal Mood & Affect: anxious Weight / BMI Weight Weight: 94.9 kg Body Mass Index (BMI) 35.3 ABG / Lab / Microbiology Data 08/08/24 05:46 08/08/24 05:46 Laboratory: Laboratory Results - last 24 hr 08/07/24 17:33: WBC Cancelled, Corrected WBC Cancelled, RBC Cancelled, Hgb Cancelled, Hct Cancelled, MCV Cancelled, MCH Cancelled, MCHC Cancelled, RDW Std Deviation Cancelled, RDW Coeff of Pravin Cancelled, Plt Count Cancelled, MPV Cancelled, Immature Gran % (Auto) Cancelled, Neut % (Auto) Cancelled, Lymph % (Auto) Cancelled, Dickenson % (Auto) Cancelled, Eos % (Auto) Cancelled, Baso % (Auto) Cancelled, Absolute Neuts (auto) Cancelled, Absolute Lymphs (auto) Cancelled, Total Counted Cancelled, Neutrophils % (Manual) Cancelled, Band Neutrophils % Cancelled, Lymphocytes % (Manual) Cancelled, Monocytes % (Manual) Cancelled, Eosinophils % (Manual) Cancelled, Basophils % (Manual) Cancelled, Metamyelocytes % Cancelled, Myelocytes % Cancelled, Promyelocytes % Cancelled, Blast Cells % Cancelled, Plasma Cell % (Manual) Cancelled, Other Cells % Cancelled, Nucleated RBC % Cancelled, Nucleated RBCs/100 WBC Cancelled, Differential Comment Cancelled, Diff Path Review Cancelled, Hypersegmented Neuts Cancelled, Atypical Lymphocytes Cancelled, Reactive Lymphocytes Cancelled, Smudge Cells Cancelled, Toxic Granulation Cancelled, Toxic Vacuolation Cancelled, Dohle Bodies Cancelled, [place] Rods Cancelled, Platelet Estimate Cancelled, Plt Morphology Comment Cancelled, RBC Morphology Cancelled 08/07/24 17:33: RBC Morphology Cancelled, Polychromasia Cancelled, Hypochromasia Cancelled, Basophilic Stippling Cancelled, Anisocytosis Cancelled, Microcytosis Cancelled, Macrocytosis Cancelled, Spherocytes Cancelled, Sickle Cells Cancelled, Target Cells Cancelled, Tear Drop Cells Cancelled, Ovalocytes Cancelled, Stomatocytes Cancelled, Mao-[place]ster Bodies Cancelled, Shanta Cells Cancelled, Bite Cells Cancelled, Crenated Cell Cancelled, Acanthocytes (Spur) Cancelled, Rouleaux Cancelled, Schistocytes Cancelled, Sodium 134 L, Potassium 3.9, Chloride 98, Carbon Dioxide 29.0, Anion Gap 8, BUN 15, Creatinine 0.94, Est GFR (MDRD) Af Amer 77, Est GFR (MDRD) Non-Af 63, BUN/Creatinine Ratio 16.0, Glucose 102, Calcium 9.1, Magnesium 2.2, Total Bilirubin 0.30, AST 37, ALT 27, Alkaline Phosphatase 69, Total Creatine Kinase 115, Total Protein 8.0, Albumin 3.2, Globulin 4.8 H, Albumin/Globulin Ratio 0.7 L, Urine Color Yellow, Urine Clarity Sl. Cloudy, Urine pH 5.0, Ur Specific [place] 1.030, Urine Protein 30 H, Urine Glucose (UA) Normal, Urine Ketones 50 H, Urine Occult Blood 25 H, Urine Nitrite Negative, Urine Bilirubin 1 H, Urine Urobilinogen 1 H, Ur Leukocyte Esterase 500 H, Urine RBC 0-5 SEEN, Urine WBC >100 SEEN, Ur Squamous Epith Cells 10-25 SEEN, Urine Bacteria 1+, Urine Mucus 1+ 08/07/24 18:15: WBC 6.8, RBC 4.95, Hgb 14.5, Hct 44.4, MCV 89.7, MCH 29.3, MCHC 32.7, RDW Std Deviation 40.3, RDW Coeff of Pravin 12.3, Plt Count 259, MPV 9.9, Immature Gran % (Auto) 0.300, Neut % (Auto) 62.8, Lymph % (Auto) 18.4 L, Dickenson % (Auto) 18.2 H, Eos % (Auto) 0.0, Baso % (Auto) 0.3, Absolute Neuts (auto) 4.2, Absolute Lymphs (auto) 1.24, Nucleated RBC % 0 02/18/25 05:46: WBC 5.6, RBC 4.60, Hgb 13.8, Hct 41.4, MCV 90.0, MCH 30.0, MCHC 33.3, RDW Std Deviation 41.1, RDW Coeff of Pravin 12.5, Plt Count 248, MPV 10.0, Immature Gran % (Auto) 0.200, Neut % (Auto) 38.9 L, Lymph % (Auto) 40.1, Dickenson % (Auto) 20.1 H, Eos % (Auto) 0.2, Baso % (Auto) 0.5, Absolute Neuts (auto) 2.2, Absolute Lymphs (auto) 2.24, Nucleated RBC % 0, Sodium 136, Potassium 3.6, Chloride 102, Carbon Dioxide 28.0, Anion Gap 6, BUN 14, Creatinine 0.77, Estim Creat Clear Calc 77.29, Est GFR (MDRD) Af Amer 97, Est GFR (MDRD) Non-Af 80, BUN/Creatinine Ratio 18.3, Glucose 85, Calcium 8.5 Microbiology: Microbiology 08/07/24 17:33 Urine, Clean Catch Urine Culture - Preliminary Culture exhibits no growth. 08/07/24 17:35 Mucosa - Nose SARS-CoV-2, Influenza & RSV (PCR) - Final Influenzae A Radiography Diagnostic Testing: Radiology Impression Chest X-Ray 08/07/24 18:00 IMPRESSION: Pulmonary hyperinflation. No acute cardiopulmonary process is demonstrated. If there are persistent symptoms or clinical concern, short-term follow-up CT evaluation may be helpful. Reading Location: [facility] Instructions DC O2, CPAP, BIPAP Needs Home O2 Discharge instructions: No Meaningful Use Info Meaningful Use Meaningful Use Diagnoses (Choose all that apply): None applicable Ischemic Stroke Statin Dosing Therapy Reference: STATIN DOSE THERAPY REFERENCE: * Patients > 75 years receive moderate or high dose statin therapy. * Patients 75 years or YOUNGER should receive HIGH intensity statin dose unless contraindicated. You will be required to document reason for non-treatment if statin daily dose does not meet guidelines. HIGH DOSE STATIN THERAPY DAILY Atorvastatin > than or = to 40 mg Rosuvastatin > than or = to 20 mg Amlodipine + Atorvastatin > than or = to 2.5/40 mg Ezetimibe + Simvastatin 10/80 mg Simvastatin 80mg Discharge Plan Admission Admit Date/Time: 08/07/24 21:38 Primary Reason for Your Visit: weakness Attending Provider: Michael Raymundo Primary Care Provider: Mayra Pierce Consulting Providers: Julio Blake Instructions Additional Instructions / Restrictions: Take 3 more days of Tamiflu and Keflex for your flu infection and UTI. Follow- up with your primary care doctor as needed. Discharge Orders/Prescriptions Prescriptions: New oseltamivir 75 mg Capsule 75 mg PO BID 3 Days Qty: 6 0RF cephalexin 500 mg capsule 500 mg PO BID 3 Days Qty: 6 0RF Continued fexofenadine [Allergy Relief (fexofenadine)] 180 mg tablet 180 mg PO DAILY folic acid 1 mg tablet 1 mg PO DAILY tizanidine 4 mg tablet 4 mg PO TID PRN (Reason: muscle spasticity) vitamin B complex Capsule 1 cap PO DAILY Patient Comments: [NO ORIGINAL SIG] fluoxetine 40 mg capsule 40 mg PO DAILY fluoxetine 20 mg capsule 20 mg PO QHS Breztri Aerosphere 160-9-4.8 mcg/actuation HFA aerosol inhaler 2 inh INHALATION BID Patient Comments: [NO ORIGINAL SIG] fluticasone propionate 50 mcg/actuation spray,suspension 1 spray INTRANASAL DAILY Patient Comments: [NO ORIGINAL SIG] gabapentin 800 mg tablet 800 mg PO 4X/DAY omeprazole 40 mg capsule,delayed release(DR/EC) 40 mg PO DAILY Rx Instructions: TAKE BEFORE BREAKFAST potassium chloride 20 mEq tablet,ER particles/crystals 20 meq PO DAILY roflumilast 500 mcg tablet 500 mcg PO DAILY sucralfate 1 gram tablet 1 g PO DAILY Patient Comments: [NO ORIGINAL SIG] Saccharomyces boulardii [Probiotic (S.boulardii)] 250 mg capsule 250 mg PO DAILY cholecalciferol (vitamin D3) 125 mcg (5,000 unit) capsule 125 mcg PO DAILY Referrals / Follow Up: Mayra Pierce MD [Primary Care Provider] - Disposition Disposition (needs filled in before D/C Order can be placed): Home, Self Care Charges/Coding Visit Charges Inpatient E&M: 21576 Disch Hosp >30min
[2024-08-08] MEDS: HYDROmorphone 1 MG/ML Syringe IV (11:05)
[2024-08-08] MEDS: Ondansetron 4 MG/2 ML Vial IV (11:08)
[2024-08-08] MEDS: 0.9% Saline Lock 10 ML Syringe IV (11:08)
[2024-08-08] MEDS: Potassium Chloride Oral Tablet 20 MEQ PO (11:22)
[2024-08-08] MEDS: Vitamin B Comp W-C Capsule 1 CAP PO (11:22)
[2024-08-08] MEDS: Folic Acid 1 MG Tablet PO (11:22)
[2024-08-08] MEDS: Fluoxetine HCl 40 MG CAPSULE PO (11:23)
[2024-08-08] MEDS: Loratadine 10 MG Tablet PO (11:23)
[2024-08-08] MEDS: Oseltamivir Phosphate 75 MG Capsule PO (11:24)
[2024-08-08] MEDS: Cholecalciferol (Vit D3) 125 MCG CAPSULE (5,000 UNITS) PO (11:24)
== END 2024-08-08 20:25 | disposition home or self-care (01) ==
LOC: ED 22:01 → MS3 08-08 01:01
PROVIDERS: Admitting Provider Family Medicine; Emergency Provider Emergency Medicine; PCP Student in an Organized Health Care Education/Training Program; Visit Provider Hospitalist
DX: J10.1 Influenza due to other identified influenza virus with other respiratory manifestations (principal); J96.10 Chronic respiratory failure, unspecified whether with hypoxia or hypercapnia; J44.0 Chronic obstructive pulmonary disease with (acute) lower respiratory infection; F17.290 Nicotine dependence, other tobacco product, uncomplicated; F41.9 Anxiety disorder, unspecified; K21.9 Gastro-esophageal reflux disease without esophagitis; Z68.35 Body mass index [BMI] 35.0-35.9, adult; E66.812 Obesity, class 2; M79.7 Fibromyalgia; Z99.81 Dependence on supplemental oxygen; N30.00 Acute cystitis without hematuria; G89.29 Other chronic pain; Z79.899 Other long term (current) drug therapy; E86.0 Dehydration; F32.A Depression, unspecified; Z79.891 Long term (current) use of opiate analgesic
CPT/HCPCS: 36415; 71046; 80048; 80053; 81001; 82550; 83735; 85025; 87086; 87088; 87631; 93005; 94640; 96365; 96375; 96376; 97161; 99221; 99285; A4216; G0378; J2405

== ENCOUNTER 2024-12-15 20:48 | Emergency (ER) | payer MEDICARE, MEDICAID, SELFPAY ==
[2024-12-15 20:49] VITALS: BP 121/84; PULSE 85; RESP 14; TEMP 36.8; O2SAT 98
--- OUTSIDE RECORDS SUMMARY | 2024-12-15 22:03 | XMS RPT_ITS | CCD ---
Author Organization [facility] Providers Care Emergency Medcl Emt Name Role Phone CINDY LOPES MD HEALTH DEP Unavailable Unava ilable FEISON EMILY Unavailable Unavailable OLIVIA EMILY Unavailable Unavailable CINDY LOPES Unavailable Unavailable CINDY LOPES Unavailable Unavailable CINDY LOPES Unavailable Unavailable CINDY LOPES Unavailable Unavailable CINDY LOPES Unavailable Unavailable IRON ERNANDEZ Unavailable Unavailable CINDY LOPES Unavailable Unavailable WYATT NANCY Unavailable Unavailable Cindy Lopes Unavailable Unavailable Tara Marcial Unavailable Unavailable Cindy Lopes Unavailable Unavailable Agustin Unavailable Unavailable Carolynn Unavailable Unavailable Cindy Lopes Unavailable Unavailable Josh Rodriguez Attending Unavailable Cindy Lopes Primary Care Provider Maty Love Primary Care Provider Maty Love Primary Care Provider ALDO LI Attending Unavailable ALE MENDOZA Primary Care Unavailable Ro Austin Unavailable [phone] Maty Love Primary Care Provider [phone] Ro Austin CNP Unavailable Maty Love CNP Primary Care Provider Shazia Bhatti CNP Primary Care Provider Maty Love CNP Unavailable Moses ROMERO - Cindy QUEEN Primary Care Provider CINDY LOPES Primary Care Unavailable SHAZIA STEVENS Referring Unavailable Shazia Bhatti CNP Primary Care Provider [phone] Chon QUEENNoemi Unavailable kadi Cindy QUEEN Unavailable BRET Nesbitt Bethany M Primary Care Provider BRET Nesbitt Bethany M Attending Provider AGUSTO CHRISTIANSEN Attending Unavailable AGUSTO CHRISTIANSEN Admitting Unavailable VICENTE ROSAS Primary Care Unavailable BRET Nesbitt Bethany M Primary Care Provider BRET Nesbitt Bethany M Attending Provider None, Physician Primary Care Provider [phone] Delicia THERAPEUTIC ASSISTANT Bethany M Primary Care Provider TORREY NesbittN Bethany M Attending Provider Klejaclyn, THERAPEUTIC ASSISTANT Bethany M Primary Care Provider TORREY NesbittN Bethany M Attending Provider None, Physician Primary Care Provider [phone] Arabpour, DO Jae Attending Provider [phone] Delicia THERAPEUTIC ASSISTANT Bethany M Attending Provider Delicia THERAPEUTIC ASSISTANT Bethany M Primary Care Provider Klejaclyn, THERAPEUTIC ASSISTANT Bethany M Primary Care Provider Delicia, THERAPEUTIC ASSISTANT Bethany M Attending Provider Delicia, THERAPEUTIC ASSISTANT Bethany M Primary Care Provider Klejaclyn, THERAPEUTIC ASSISTANT Bethany M Attending Provider Arabpour, DO Jae Attending Provider [phone] Delicia, THERAPEUTIC ASSISTANT Bethany M Primary Care Provider Delicia, THERAPEUTIC ASSISTANT Bethany M Attending Provider Delicia ROMERO-HAND PAINT MIXER, Bethany M Primary Care Unavai lable Arabpour, Jae Attending Unavailable Delicia HIRSCHN-HAND PAINT MIXER, Bethany M Primary Care Unavai lable Arabpour, Jae Attending Unavailable Klejaclyn HIRSCHN-HAND PAINT MIXER, Bethany M Primary Care Unavai lable Kleman THERAPEUTIC ASSISTANT-HAND PAINT MIXER, Bethany M Attending Unavai lable Klejaclyn THERAPEUTIC ASSISTANT-HAND PAINT MIXER, Bethany M Primary Care Unavai lable Kleman THERAPEUTIC ASSISTANT-HAND PAINT MIXER, Bethany M Attending Unavai lable Kleman THERAPEUTIC ASSISTANT-HAND PAINT MIXER, Bethany M Attending Unavai lable None Primary Care Unavailable DO Roland Quick Attending Provider NICK Nesbitt Primary Care Provider NICK Nesbitt Attending Provider [phone] DO Roland Quick Attending Provider NICK Baker Attending Provider [phone] MAYRA CORTEZ MD Admitting Unavailable MAYRA CORTEZ MD Attending Unavailable MAYRA CORTEZ MD Primary Care Unavailable MAYRA CORTEZ MD Attending Unavailable MAYRA CORTEZ MD Primary Care Unavailable MAYRA CORTEZ MD Admitting Unavailable Julio Blake Admitting Unavailable Michael Raymundo Attending Unavailable Mayra Cortez Primary Care Unavailable Julio Blake Consulting Unavailable Mayra Cortez Primary Care Unavailable Julio Blake Attending Unavailable Julio Blake Consulting Unavailable Julio Blake Admitting Unavailable Michael Raymundo Attending Unavailable Mayra Cortez Primary Care Unavailable Michael Raymundo Consulting Unavailable Allergies Allergy Classification Reported Allergen(s) Allergy Type Date of Onset Reaction(s) Facility Latex (5 sources) Latex Substance Allergy 5 Rash [facility] Penicillins (antibiotic) (4 sources) Amoxicillin Drug Allergy 0 Diarrhea [facility] Work Phone: pregabalin (5 sources) pregabalin Drug Allergy 5 Other (See Comments) [facility] rOPINIRole (5 sources) rOPINIRole Drug Allergy 5 Anaphylaxis [facility] (20 sources) Latex; Translations: [Latex] Allergy to substance (disorder) 1 Sensitive Skin [facility] (20 sources) pregabalin; Translations: [Lyrica] Drug Allergy Sucidal thoughts [facility] (20 sources) rOPINIRole; Translations: [Requip] Drug Allergy anaphylaxis [facility] (2 sources) -No Known Food Allergies Allergy to substance (disorder) [facility] (20 sources) Molds/Fungal; Translations: [Molds/Fungal] Allergy to substance (disorder) Can not function [facility] (20 sources) Pollens (tree, grass, weeds); Translations: [Pollens (tree, grass, weeds)] Allergy to substance (disorder) motion sickness [facility] (16 sources) Amoxicillin Drug Allergy 0 Diarrhea [facility] Work Phone: (1 source) Mold; Translations: [MOLD EXTRACTS] Propensity to adverse reactions to drug (disorder) [facility] (1 source) natural latex rubber; Translations: [LATEX, NATURAL RUBBER] Propensity to adverse reactions to drug (disorder) [facility] (20 sources) pregabalin; Translations: [PREGABALIN] Drug Allergy 1 Anxiety [facility] (20 sources) rOPINIRole; Translations: [ROPINIROLE] Drug Allergy 1 Swelling, Anaphylaxis [facility] (1 source) WEED POLLEN-SHORT RAGWEED; Translations: [WEED POLLEN-SHORT RAGWEED] Propensity to adverse reactions to drug (disorder) [facility] (1 source) Mold Extract Drug Allergy 4 PT UNSURE OF REACTION [facility] (1 source) Mold Extract Drug Allergy 5 [facility] Rep[facility] Medications Current Medications Medication Drug Class(es) Dates Sig (Normalized) Sig (Original) acetaminophen 500 mg oral tablet (18 sources) Start: 06-30-2019 take 1000 mg by mouth every four hours as needed Acetaminophen Active 1000 MG PO Every 4 hr as needed June 30, 2019 12:00am ActiMaris All-Natural Wound External Solution (5 sources) Start: 08-23-2020 ActiMaris All-Natural Wound External Solution 08/23/2020 Provider: Maty Love CNP Advanced Probiotic 10 Oral Capsule (17 sources) Start: 04-26-2020 Advanced Probiotic 10 Oral Capsule 04/26/2020 Provider: Maty Love CNP Start: 10-20-2019 End: 04-26-2020 Advanced Probiotic 10 Oral C apsule 10/20/2019 - 04/26/2020 Provider: Maty Love CNP Start: 10-20-2019 Advanced Probi otic 10 Oral Capsule 10/20/2019 Provider: Maty Love CNP Advanced Probiotic 10 Oral Capsule (15 sources) Start: 10-25-2020 Advanced Probi otic 10 Oral Capsule 10/25/2020 Provider: Maty Love CNP Start: 04-26-2020 End: 10-25-2020 Advanced Probiotic 10 Oral C apsule 04/26/2020 - 10/25/2020 Provider: Maty Love CNP Start: 10-20-2019 End: 04-26-2020 Advanced Probiotic 10 Oral C apsule 10/20/2019 - 04/26/2020 Provider: Maty Love CNP albuterol 0.83 mg/ml inhalation solution (20 sources) beta2-Adrenergic Agonist Start: 08-18-2019 End: 04-26-2020 Albuterol Sulfate (2.5 MG/3ML) 0.083% Inhalation Nebulization solution 04/26/2020 Provider: Maty Love CNP Start: 07-21-2018 End: 10-25-2020 Ventolin HFA 108 (90 Base) M CG/ACT Inhalation Aerosol Solution 10/25/2020 Provider: Maty Love CNP Start: 07-21-2018 Ventolin HFA 1 08 (90 Base)MCG/ACT Inhalation Aerosol Solution 07/21/2018 Provider: Start: 07-21-2018 Ventolin HFA 1 08 (90 Base)MCG/ACT Inhalation Aerosol Solution 07/21/2018 Provider: Start: 07-21-2018 End: 08-18-2019 Albuterol Sulfate (2.5 MG/3ML)0.083% Inhalation Nebulization solution 07/21/2018 - 08/18/2019 Provider: Start: 07-16-2018 End: 07-16-2018 VENTOLIN HFA 90MCG/ACTUAT NE SC 07/16/2018 - 07/16/2018 Provider: Start: 01-20-2018 End: 05-20-2020 ALBUTEROL SULFATE 2.5 mg /3 ML (0.0 MISC 01/20/2018 - 05/20/2020 Provider: Start: 01-20-2018 End: 01-20-2018 ALBUTEROL SULFATE 2.5 mg /3 ML (0.0 MISC 01/20/2018 - 01/20/2018 Provider: Start: 01-20-2018 End: 01-20-2018 ALBUTEROL SULFATE 2.5 mg/3 M L (0.0 MISC 01/20/2018 - 01/20/2018 Provider: Start: 10-21-2017 End: 05-20-2018 take 3 mL by inhalation three times daily as needed albuterol sulfate 2.5 mg /3 mL (0.083 %) inhalation solution for nebulization 01/20/2018 05/20/2018 inhale 3 milliliters (2.5 mg) by nebulization route 3 times per day as needed. J44.9 Start: 10-21-2017 End: 05-20-2020 ALBUTEROL SULFATE 2.5 mg /3 ML (0.0 MISC 10/21/2017 - 05/20/2020 Provider: Start: 10-21-2017 End: 10-21-2017 ALBUTEROL SULFATE 2.5 mg /3 ML (0.0 MISC 10/21/2017 - 10/21/2017 Provider: Start: 10-21-2017 End: 10-21-2017 ALBUTEROL SULFATE 2.5 mg/3 M L (0.0 MISC 10/21/2017 - 10/21/2017 Provider: Start: 12-30-2016 End: 05-20-2020 ALBUTEROL SULFATE 2.5 mg /3 ML (0.0 MISC 12/30/2016 - 05/20/2020 Provider: Start: 12-30-2016 End: 12-30-2016 ALBUTEROL SULFATE 2.5 mg /3 ML (0.0 MISC 12/30/2016 - 12/30/2016 Provider: Start: 12-30-2016 End: 12-30-2016 ALBUTEROL SULFATE 2.5 mg/3 M L (0.0 MISC 12/30/2016 - 12/30/2016 Provider: Start: 12-28-2016 albuterol sulf ate HFA (PROVENTIL HFA) 108 (90 Base) MCG/ACT inhaler Inhale 2 puffs into the lungs every 4 hours as needed for Wheezing or Shortness of Breath (Space out to every 6 hours as symptoms improve) Space out to every 6 hours as symptoms improve. 1 Inhaler 0 12/28/2016 Active Start: 10-01-2016 End: 05-20-2020 ALBUTEROL SULFATE 2.5 mg /3 ML (0.0 MISC 10/01/2016 - 05/20/2020 Provider: Start: 10-01-2016 End: 10-01-2016 ALBUTEROL SULFATE 2.5 mg /3 ML (0.0 MISC 10/01/2016 - 10/01/2016 Provider: Start: 10-01-2016 End: 10-01-2016 ALBUTEROL SULFATE 2.5 mg/3 M L (0.0 [facility] - 10/01/2016 Provider: take 2 puff(s) by in halation every six hours as needed for wheezing albuterol sulfate HFA 108 (90 Base) MCG/ACT inhaler Inhale 2 puffs into the lungs every 6 hours as needed for Wheezing 0 Active take 1 puff(s) by in halation every six hours as needed Ventolin HFA 90 mcg/actuation inhalation HFA aerosol inhaler inhale 1 puff (90 mcg) by inhalation route every 6 hours as needed Albuterol Sulfate (Ventolin Hfa) 108 MCG/ACT HFA aerosol inhaler (18 sources) Start: 01-06-2018 take 1 puff(s) by inhalation every four hours as needed Albuterol Sulfate (Ventolin Hfa) 108 MCG/ACT HFA aerosol inhaler Active 2 PUFF IN Every 4 hr as needed January 06, 2018 1:39pm Start: 01-06-2018 take 1 puff(s) by in halation every four hours as needed Albuterol Sulfate (Ventolin Hfa) 108 MCG/ACT HFA aerosol inhaler Active 2 PUFF IN Every 4 hr as needed January 06, 2018 12:00am Start: 01-06-2018 take 1 puff(s) by in halation every four hours as needed Albuterol Sulfate (Ventolin Hfa) 108 MCG/ACT HFA aerosol inhaler Active 2 PUFF IN Every 4 hr as needed January 05, 2018 11:00pm Amino Acids Complex Oral Tablet (5 sources) Start: 10-25-2020 Amino Acids Complex Oral Tablet 10/25/2020 Provider: Maty Love CNP atorvastatin 40 mg oral tablet (2 sources) HMG-CoA Reductase Inhibitor Start: 01-03-2021 End: 05-03-2021 Atorvastatin Calcium 40 MG Oral Tablet 01/03/2021 - 05/03/2021 Provider: Shazia Bhatti CNP atropine sulfate 0.025 mg / diphenoxylate hydrochloride 2.5 mg oral tablet (1 source) Anticholinergic, Cholinergic Muscarinic Antagonist, Antidiarrheal Start: 07-28-2023 take 1 tablet by mouth three times daily Diphenoxylate-Atro pine (Lomotil) 2.5-0.025 mg tablet Active 1 TABLET PO THREE TIMES A DAY 02 11July 28, 2023 7:56am azelastine hydrochloride 0.137 mg/actuat metered dose nasal spray (20 sources) Histamine-1 Receptor Antagonist Start: 07-21-2018 End: 08-18-2019 Azelastine HCl 137 MCG/SPRAY Nasal Solution 08/18/2019 Provider: Maty Love CNP Start: 07-16-2018 End: 05-20-2020 AZELASTINE 137 mcg (0.1 %) [facility]16[place] - 05/20/2020 Provider: Start: 07-16-2018 End: 07-16-2018 AZELASTINE 137 mcg (0.1 %) [facility] [place] 07/16/2018 Provider: Start: 07-16-2018 End: 07-16-2018 AZELASTINE 137 mcg(0.1 %) [facility] [place]16[place] - 07/16/2018 Provider: Start: 11-04-2015 take 1 spray(s) nasa l route twice daily azelastine (ASTELIN) 0.1 % nasal spray 1 spray by Nasal route 2 times daily Use in each nostril as directed 1 Bottle 0 11/04/2015 Active azelastine 137 m cg (0.1 %) nasal aerosol,spray spray 2 sprays in each nostril by intranasal route 2 times per day azelastine hydrochloride 0.137 mg/actuat / fluticasone propionate 0.05 mg/actuat metered dose nasal spray (1 source) Corticosteroid, Histamine-1 Receptor Antagonist Azelastine-Fluticaso ne 137-50 MCG/ACT SUSP by Nasal route 0 Active B-Complex Oral Tablet (3 sources) Start: 2020 B-Complex Oral Tablet 12/01/2020 Provider: Shazia Bhatti CNP benzonatate 200 mg oral capsule (1 source) Non-narcotic Antitussive take 1 capsule by mouth three times daily as needed for cough benzonatate (TESSALON) 200 MG capsule Take 200 mg by mouth 3 times daily as needed for Cough 0 Active BHI Mucus Relief Oral Tablet (5 sources) Start: 2020 BHI Mucus Relief Oral Tablet 08/23/2020 Provider: Maty Love CNP buprenorphine 0.6 mg buccal film (20 sources) Partial Opioid Agonist Start: 2020 Belbuca 600 MCG Buccal Film 03/04/2021 Provider: Start: 09-10-2020 Buprenorphine Hcl (Belbuca) 600 mcg Film Active 600 MCG BU Q12H September 09, 2020 11:00pm Start: 01-26-2020 End: 02-22-2021 Belbuca 600 MCG Buccal Film 01/23/2021 - 02/22/2021 Provider: Start: 08-18-2019 End: 01-26-2020 Belbuca 450 MCG Buccal Film 08/18/2019 - 01/26/2020 Provider: Start: 07-21-2018 End: 01-06-2019 apply 15 ug transdermal route every hour Butrans 15MCG/HR Transdermal Patch Weekly 07/21/2018 - 01/06/2019 Provider: Start: 07-16-2018 End: 07-16-2018 BUTRANS 15MCG/HOUR [facility] [place] - 07/16/2018 Provider: Butrans 15 mcg/h our transdermal patch weekly apply 1 patch (15 mcg/hour) by transdermal route every 7 days cetirizine hydrochloride 10 mg oral tablet (20 sources) Histamine-1 Receptor Antagonist Start: 04-03-2020 End: 11-26-2020 take 1 tablet by mouth once daily Cetirizine (Zyrtec) 10 mg Tablet Active 10 MG PO Daily September 10, 2020 12:00am Start: 05-09-2015 End: 08-10-2016 take 1 tablet by mouth once daily Zyrtec 10 mg oral tablet 05/09/2015 08/10/2016 take 1 tablet (10 mg) by oral route once daily Start: 05-09-2015 End: 05-20-2020 ZYRTEC 10 mg MISC 05/09/2015 - 05/20/2020 Provider: Start: 05-09-2015 End: 05-09-2015 ZYRTEC 10 mg MISC 05/09/2015 - 05/09/2015 Provider: Start: 03-26-2015 End: 05-20-2020 ZYRTEC 10 mg MISC 03/26/2015 - 05/20/2020 Provider: Start: 03-26-2015 End: 03-26-2015 ZYRTEC 10 mg MISC 03/26/2015 - 03/26/2015 Provider: Start: 12-28-2014 End: 05-20-2020 ZYRTEC 10 mg MISC 12/28/2014 - 05/20/2020 Provider: Start: 12-28-2014 End: 12-28-2014 ZYRTEC 10 mg MISC 12/28/2014 - 12/28/2014 Provider: cholecalciferol 0.025 mg ora l capsule (20 sources) Vitamin D Start: 09-30-2020 Vitamin D-3 25 MCG (1000 UT) Oral Capsule 09/30/2020 Provider: Maty Love HAND PAINT MIXER Start: 09-13-2018 End: 09-30-2020 Vitamin D3 5000UNIT Oral Tab let 02/23/2019 - 05/06/2019 Provider: Shazia Bhatti HAND PAINT MIXER Start: 09-13-2018 Vitamin D3 500 0UNIT Oral Tablet 09/13/2018 Provider: Shazia Stevens [facility] Start: 09-03-2017 End: 01-15-2019 take 5000 [IU] by mouth once daily Cholecalciferol (Vitamin D3) Active 5000 UNITS PO Daily July 06, 2018 12:00am take 1 tablet by jason th once daily vitamin D (CHOLECALCIFEROL) 1000 UNIT TABS tablet Take 1,000 Units by mouth daily 0 Active diclofenac sodium 0.01 mg/mg topical gel (20 sources) Nonsteroidal Anti-inflammatory Drug Start: 09-10-2020 apply 4 g topically four times daily Diclofenac Sodium (Voltaren) 1 % Gel Active 4 GM TOP Four Times Daily September 09, 2020 11:00pm Start: 11-02-2019 End: 04-02-2020 Diclofenac Sodium 1% Transde rmal Gel 12/28/2019 - 04/02/2020 Provider: Maty Love CNP Start: 11-02-2019 End: 12-28-2019 Diclofenac Sodium 1% Transde rmal Gel 11/02/2019 - 12/28/2019 Provider: Maty Love CNP dicyclomine hydrochloride 10 mg oral capsule (1 source) Anticholinergic Start: 02-02-2017 take 1 capsule by mouth four times daily before mealtime dicyclomine (BENTYL) 10 MG capsule Take 1 capsule by mouth 4 times daily (before meals and nightly) 120 capsule 0 02/02/2017 Active docusate sodium 100 mg oral capsule (20 sources) Start: 09-10-2020 take 2 capsules by mouth twice daily Docusate Sodium (Colace) 100 mg Capsule Active 200 MG PO Twice Daily September 09, 2020 11:00pm Start: 07-21-2018 End: 10-28-2020 Docusate Sodium 100MG Oral C apsule 11/04/2018 - 10/04/2019 Provider: Cindy Lopes CNP Start: 07-16-2018 End: 05-20-2020 DOCUSATE SODIUM 100 MG MISC 07/16/2018 - 05/20/2020 Provider: Start: 07-16-2018 End: 07-16-2018 DOCUSATE SODIUM 100MG MISC 07/16/2018 - 07/16/2018 Provider: Start: 01-20-2018 take 2 capsules by m outh twice daily Colace 100 mg oral capsule 01/20/2018 take 2 capsules (200 mg) by oral route BID Start: 01-20-2018 End: 05-20-2020 COLACE 100 mg MISC - 05/20/2020 Provider: Start: 01-20-2018 End: 01-20-2018 COLACE 100 mg MISC 8 - 01/20/2018 Provider: Start: 05-09-2015 End: 08-10-2016 take 1 capsule by mouth once daily docusate sodium 100 mg oral capsule 05/09/2015 08/10/2016 take 1 capsule (100 mg) by oral route once daily Start: 05-09-2015 End: 05-20-2020 DOCUSATE SODIUM 100 MG MISC 05/09/2015 - 05/20/2020 Provider: Start: 05-09-2015 End: 05-09-2015 DOCUSATE SODIUM 100MG MISC 05/09/2015 - 05/09/2015 Provider: FLUoxetine 40 mg oral capsule (20 sources) Serotonin Reuptake Inhibitor Start: 07-04-2020 End: 12-01-2020 FLUoxetine HCl 20 MG Oral Capsule 12/01/2020 Provider: Shazia Bhatti CNP Start: 01-06-2019 End: 08-04-2019 PROzac 20 MG Oral Capsule - 08/04/2019 Provider: Cindy Lopes CNP Start: 07-21-2018 End: 12-01-2020 PROzac 40MG Oral Capsule, conventional 10/07/2018 - 01/06/2019 Provider: Cindy Lopes CNP Start: 07-16-2018 End: 05-20-2020 PROZAC 40 MG MISC 07/16/2018 - 05/20/2020 Provider: Start: 07-16-2018 End: 07-16-2018 PROZAC 40 MG MISC 07/16/2018 - 07/16/2018 Provider: Start: 07-16-2018 End: 07-16-2018 PROZAC 40MG MISC 07/16/2018 - 07/16/2018 Provider: Start: 06-03-2018 End: 05-20-2020 PROZAC 40 MG MISC 06/03/2018 - 05/20/2020 Provider: Start: 06-03-2018 End: 06-03-2018 PROZAC 40 MG MISC 06/03/2018 - 06/03/2018 Provider: Start: 06-03-2018 End: 06-03-2018 PROZAC 40MG MISC 06/03/2018 - 06/03/2018 Provider: Start: 01-20-2018 End: 05-20-2020 PROZAC 40 MG MISC 01/20/2018 - 05/20/2020 Provider: Start: 01-20-2018 End: 01-20-2018 PROZAC 40 MG MISC 01/20/2018 - 01/20/2018 Provider: Start: 01-20-2018 End: 01-20-2018 PROZAC 40MG MISC 01/20/2018 - 01/20/2018 Provider: Start: 01-06-2018 take 60 mg by mouth once daily Fluoxetine Active 60 MG PO Daily January 05, 2018 11:00pm Start: 10-21-2017 End: 05-20-2018 take 1 capsule by mouth once daily in the evening Prozac 40 mg oral capsule 01/20/2018 05/20/2018 take 1 capsule (40 mg) by oral route once daily in the evening for 30 days Start: 10-21-2017 End: 05-20-2020 PROZAC 40 MG MISC 10/21/2017 - 05/20/2020 Provider: Start: 10-21-2017 End: 10-21-2017 PROZAC 40 MG MISC 10/21/2017 - 10/21/2017 Provider: Start: 10-21-2017 End: 10-21-2017 PROZAC 40MG MISC 10/21/2017 - 10/21/2017 Provider: Start: 05-23-2015 End: 05-20-2020 PROZAC 40 MG MISC 05/23/2015 - 05/20/2020 Provider: Start: 05-23-2015 End: 05-23-2015 PROZAC 40 MG MISC 05/23/2015 - 05/23/2015 Provider: Start: 05-23-2015 End: 05-23-2015 PROZAC 40MG MISC 05/23/2015 - 05/23/2015 Provider: Start: 05-23-2015 End: 08-10-2016 take 1 capsule by mouth in the morning Prozac 40 mg oral capsule 05/23/2015 08/10/2016 TAKE 1 CAPSULE BY MOUTH IN THE MORNING Start: 04-26-2015 End: 05-20-2020 PROZAC 40 MG MISC 04/26/2015 - 05/20/2020 Provider: Start: 04-26-2015 End: 04-26-2015 PROZAC 40 MG MISC 04/26/2015 - 04/26/2015 Provider: Start: 04-26-2015 End: 04-26-2015 PROZAC 40MG MISC 04/26/2015 - 04/26/2015 Provider: Start: 03-26-2015 End: 05-20-2020 PROZAC 40 MG MISC 03/26/2015 - 05/20/2020 Provider: Start: 03-26-2015 End: 03-26-2015 PROZAC 40 MG MISC 03/26/2015 - 03/26/2015 Provider: Start: 03-26-2015 End: 03-26-2015 PROZAC 40MG MISC 03/26/2015 - 03/26/2015 Provider: Start: 10-30-2014 End: 05-20-2020 PROZAC 40 MG MISC 10/30/2014 - 05/20/2020 Provider: Start: 10-30-2014 End: 10-30-2014 PROZAC 40 MG MISC 10/30/2014 - 10/30/2014 Provider: Start: 10-30-2014 End: 10-30-2014 PROZAC 40MG MISC 10/30/2014 - 10/30/2014 Provider: Start: 10-19-2014 End: 05-20-2020 PROZAC 20 MG MISC 10/19/2014 - 05/20/2020 Provider: Start: 10-19-2014 End: 10-19-2014 PROZAC 20 MG MISC 10/19/2014 - 10/19/2014 Provider: Start: 10-19-2014 End: 10-19-2014 PROZAC 20MG MISC 10/19/2014 - 10/19/2014 Provider: fluticasone propionate 0.05 mg/actuat metered dose nasal spray (20 sources) Corticosteroid Start: 08-18-2019 Flonase Allerg y Relief 50 MCG/ACT Nasal Suspension 08/18/2019 Provider: Maty Love CNP Start: 07-21-2018 End: 08-18-2019 Flonase 50MCG/ACT Nasal Susp ension 07/21/2018 - 08/18/2019 Provider: Start: 01-06-2018 Fluticasone Pr opionate Active 2 SPRAY BNOS Twice Daily January 05, 2018 11:00pm Start: 12-12-2015 End: 08-10-2016 take 1 spray(s) nasal route once daily Flonase 50 mcg/actuation nasal spray,suspension 12/12/2015 08/10/2016 INHALE 1 SPRAY IN EACH NOSTRIL ONE TIME A DAY Start: 12-12-2015 End: 12-12-2015 FLONASE 50MCG/ACTUAT MISC - 12/12/2015 Provider: Start: 05-09-2015 End: 08-10-2016 take 1 spray(s) nasal route once daily fluticasone 50 mcg/actuation nasal spray,suspension 05/09/2015 08/10/2016 inhale 1 spray (50 mcg) in each nostril by intranasal route once daily Start: 05-09-2015 End: 05-09-2015 FLUTICASONE 50MCG/ACTUAT MIS C 05/09/2015 - 05/09/2015 Provider: gabapentin 800 mg oral tablet (20 sources) Anti-epileptic Agent Start: 01-06-2018 take 1600 mg by mouth twice daily Gabapentin Active 1600 MG PO Twice Daily January 05, 2018 11:00pm Start: 10-19-2014 End: 11-26-2020 Gabapentin 800MG OR TABS 05/2015 - 10/30/2014 Provider: End: 08-10-2016 take 1 tablet by mouth four times daily gabapentin (NEURONTIN) 800 MG tablet Take 800 mg by mouth 4 times daily 0 Active take 2 tablets by mo uth three times daily Neurontin 800 mg oral tablet take 2 tablet (800 mg) by oral route 3 times per day 12 hr guaiFENesin 1200 mg extended release oral tablet (20 sources) Start: 11-26-2020 Mucinex Maximu m Strength 1200 MG Oral Tablet Extended Release 12 Hour 11/26/2020 Provider: Shazia Bhatti CNP Start: 06-30-2019 take 1 tablet by jason twice daily as needed, then take 1 tablet by mouth every twelve hours as needed Guaifenesin (Mucinex) 600 MG tablet extended release 12hr Active 600 MG PO Twice Daily as needed June 30, 2019 12:00am Start: 10-06-2018 End: 11-26-2020 Mucinex 600 MG Oral Tablet E xtended Release 12 Hour 05/08/2019 - 09/09/2019 Provider: Cindy Lopes CNP Start: 01-20-2018 End: 05-20-2020 [facility] 600 [facility] 01/21/20 - 05/20/2020 Provider: Start: 01-20-2018 End: 01-20-2018 MUCINEX 600 MG MISC 01/21/20 - 01/20/2018 Provider: Start: 01-20-2018 End: 01-20-2018 MUCINEX 600MG MISC 01/20/2018 Provider: Start: 10-21-2017 End: 08-18-2018 take 1 tablet by mouth every twelve hours as needed Mucinex 600 mg oral tablet extended release 12hr 01/20/2018 08/18/2018 take 1 tablet (600 mg) by oral route every 12 hours as needed for 30 days Start: 10-21-2017 End: 05-20-2020 MUCINEX 600 MG MISC 10/22/19 - 05/20/2020 Provider: Start: 10-21-2017 End: 10-21-2017 MUCINEX 600 MG MISC 10/22/19 - 10/21/2017 Provider: Start: 10-21-2017 End: 10-21-2017 MUCINEX 600MG MISC 10/21/2017 Provider: Start: 08-11-2016 End: 05-20-2020 MUCINEX 600 MG MISC 08/11/19 - 05/20/2020 Provider: Start: 08-11-2016 End: 08-11-2016 MUCINEX 600 MG MISC 08/11/19 - 08/11/2016 Provider: Start: 08-11-2016 End: 08-11-2016 MUCINEX 600MG MISC 08/11/2016 Provider: Handicap Placard XX (20 sources) Start: 07-21-[address] XX 07/21/2018 Provider: magnesium oxide 250 mg oral tablet (20 sources) Start: 07-31-2020 End: 01-01-2021 take 250 mg by mouth once daily Magnesium Oxide Active 250 MG PO Daily September 09, 2020 11:00pm Start: 07-16-2018 End: 05-20-2020 Magnesium Oxide 400 MG OR TA BS 07/16/2018 - 05/20/2020 Provider: Conversion Provider End: 10-21-2017 take 0.5 tablet by mouth once daily magnesium oxide 400 mg oral tablet 10/21/2017 take 1/2 tab daily omeprazole 40 mg delayed release oral capsule (20 sources) Proton Pump Inhibitor Start: 03-07-2018 End: 09-30-2020 take 40 mg by mouth once daily Omeprazole Active 40 MG PO Daily March 06, 2018 11:00pm Start: 01-20-2018 take 1 capsule by mo ut once daily before mealtime omeprazole 40 mg oral capsule,delayed release(DR/EC) 01/20/2018 take 1 capsule (40 mg) by oral route once daily before a meal Start: 01-20-2018 End: 11-04-2018 Omeprazole 40 MG OR CPDR 07/2017 - 11/04/2018 Provider: Start: 02-02-2017 take 1 capsule by mo uth once daily omeprazole (PRILOSEC) 20 MG delayed release capsule Take 1 capsule by mouth daily 30 capsule 0 02/02/2017 Active ondansetron 4 mg disintegrating oral tablet (20 sources) Serotonin-3 Receptor Antagonist Start: 12-29-2020 Ondansetron 4 MG Ora l Tablet Disintegrating 12/29/2020 Provider: Shazia Bhatti CNP Start: 12-11-2018 End: 01-17-2020 Ondansetron HCl 4 MG Oral Ta blet 01/17/2020 Provider: Maty Love CNP Start: 07-21-2018 End: 01-06-2019 Ondansetron 4MG Oral Tablet Disintegrating 07/21/2018 - 01/06/2019 Provider: Start: 05-29-2018 End: 05-20-2020 ONDANSETRON 4 mg MISC 2017 - 05/20/2020 Provider: Start: 05-29-2018 End: 05-29-2018 ONDANSETRON 4 mg MISC 2017 - 05/29/2018 Provider: Start: 02-16-2018 End: 05-20-2020 ONDANSETRON 4 mg MISC 2017 - 05/20/2020 Provider: Start: 02-16-2018 End: 02-16-2018 ONDANSETRON 4 mg MISC 2017 - 02/16/2018 Provider: Start: 01-20-2018 End: 05-20-2020 ONDANSETRON 4 mg MISC 2017 - 05/20/2020 Provider: Start: 01-20-2018 End: 01-20-2018 ONDANSETRON 4 mg MISC 2017 - 01/20/2018 Provider: Start: 10-21-2017 End: 05-20-2020 ONDANSETRON 4 mg MISC 2017 - 05/20/2020 Provider: Start: 10-21-2017 End: 10-21-2017 ONDANSETRON 4 mg MISC 2017 - 10/21/2017 Provider: Start: 10-04-2017 End: 05-20-2020 ONDANSETRON 4 mg MISC 2017 - 05/20/2020 Provider: Start: 10-04-2017 End: 10-04-2017 ONDANSETRON 4 mg MISC 2017 - 10/04/2017 Provider: Start: 04-14-2017 End: 05-20-2020 [facility] Provider: Start: 04-14-2017 End: 04-14-2017 ONDANSETRON 4 mg MISC 2016 - 04/14/2017 Provider: Start: 02-16-2017 End: 05-20-2018 ondansetron 4 mg oral tablet ,disintegrating 01/20/2018 05/20/2018 take 1 to [address] on top of the tongue where they will dissolve, then swallow by oral route 2 times per day as needed Start: 09-09-2016 End: 12-14-2016 Zofran ODT 4 mg oral tablet, disintegrating 09/09/2016 12/14/2016 place 2 tablets (8 mg) on top of the tongue where they will dissolve, then swallow by translingual route 1-2 hours prior to radiation therapy Start: 09-09-2016 End: 05-20-2020 ZOFRAN ODT 4 MG [facility] [place]17 - 05/20/2020 Provider: Start: 09-09-2016 End: 09-09-2016 ZOFRAN ODT 4 MG [facility] [place]17 - 09/09/2016 Provider: Start: 09-09-2016 End: 09-09-2016 ZOFRAN ODT 4MG [facility] [place] 09/10/19 17 - 09/09/2016 Provider: potassium chloride 20 meq extended release oral tablet (20 sources) Start: 08-29-2020 End: 09-30-2020 Potassium Chloride ER 20 MEQ Oral Tablet Extended Release 09/30/2020 Provider: Maty Love HAND PAINT MIXER Start: 07-21-2018 End: 02-21-2020 Potassium Chloride Maame ER 2 0MEQ Oral Tablet Extended Release 02/15/2019 - 02/10/2020 Provider: Cindy Lopes HAND PAINT MIXER Start: 01-20-2018 take 1 tablet by jason once daily at mealtime potassium chloride 20 mEq oral tablet extended release 01/20/2018 take 1 tablet (20 meq) by oral route once daily with food for 30 days Start: 01-20-2018 End: 05-20-2020 POTASSIUM CHLORIDE 20 mEq NE SC 01/20/2018 - 05/20/2020 Provider: Start: 01-20-2018 End: 01-20-2018 POTASSIUM CHLORIDE 20 mEq NE SC 01/20/2018 - 01/20/2018 Provider: Start: 01-06-2018 take 20 mEq by mouth once bryon y Potassium Chloride Active 20 MEQ PO Daily January 05, 2018 11:00pm Start: 02-04-2017 End: 05-20-2020 POTASSIUM CHLORIDE 20 mEq NE SC 02/04/2017 - 05/20/2020 Provider: Start: 02-04-2017 End: 02-04-2017 POTASSIUM CHLORIDE 20 mEq NE SC 02/04/2017 - 02/04/2017 Provider: Start: 12-14-2016 End: 05-20-2020 POTASSIUM CHLORIDE 20 mEq NE SC 12/14/2016 - 05/20/2020 Provider: Start: 12-14-2016 End: 12-14-2016 POTASSIUM CHLORIDE 20 mEq NE SC 12/14/2016 - 12/14/2016 Provider: Start: 11-02-2016 End: 05-20-2020 POTASSIUM CHLORIDE 20 mEq NE MA 11/02/2016 - 05/20/2020 Provider: Start: 11-02-2016 End: 11-02-2016 POTASSIUM CHLORIDE 20 mEq NE MA 11/02/2016 - 11/02/2016 Provider: Start: 10-19-2016 End: 03-01-2018 take 1 tablet by mouth once daily at mealtime potassium chloride 20 mEq oral tablet extended release 10/19/2016 take 1 tablet (20 meq) by oral route once daily with food Start: 10-19-2016 End: 05-20-2020 POTASSIUM CHLORIDE 20 mEq NE SC 10/19/2016 - 05/20/2020 Provider: Start: 10-19-2016 End: 10-19-2016 POTASSIUM CHLORIDE 20 mEq NE MA 10/19/2016 - 10/19/2016 Provider: take 20 mEq by mouth twice daily potassium chloride (KLOR-CON) 20 MEQ packet Take 20 mEq by mouth 2 times daily 0 Active Probiotic Oral Capsule (4 sources) Start: 10-28-2020 Probiotic Oral Capsule 10/28/2020 Provider: Shazia Bhtati CNP Probiotic-10 Oral Capsule (20 sources) Start: 02-20-2019 Probiotic-10 O ral Capsule 02/20/2019 Provider: Cindy Lopes CNP Start: 07-21-2018 End: 10-20-2019 Probiotic-10 Oral Capsule - 10/20/2019 Provider: Start: 07-21-2018 Probiotic-10 O ral Capsule 07/21/2018 Provider: promethazine hydrochloride 12.5 mg oral tablet (1 source) Phenothiazine Start: 07-28-2023 take 12.5 mg by mouth three times daily Promethazine Active 12.5 MG PO THREE TIMES A DAY July 28, 2023 7:55am sucralfate 1000 mg oral tablet (20 sources) Aluminum Complex Start: 09-10-2020 take 1 tablet by mouth once daily Sucralfate (Carafate) 1 gram Tablet Active 1 GM PO Daily September 10, 2020 12:00am Start: 02-15-2019 End: 05-04-2020 Sucralfate 1 GM Oral Tablet 09/12/2019 - 04/26/2020 Provider: Shazia Bhatti CNP Start: 07-21-2018 End: 01-06-2019 Sucralfate 1GM Oral Tablet 07/21/2018 - 01/06/2019 Provider: Start: 02-11-2018 End: 05-20-2020 SUCRALFATE 1 GRAM MISC 02/11 - 05/20/2020 Provider: Start: 02-11-2018 End: 02-11-2018 SUCRALFATE 1 GRAM MISC 02/11 - 02/11/2018 Provider: Start: 02-11-2018 End: 02-11-2018 SUCRALFATE 1GRAM MISC 2017 - 02/11/2018 Provider: Start: 01-20-2018 take 1 tablet by jason th four times daily 1 hour(s) before bedtime Carafate 1 gram oral tablet 01/20/2018 take 1 tablet (1 gram) by oral route 4 times per day on an empty stomach 1 hour before meals and at bedtime Start: 01-20-2018 End: 05-20-2020 CARAFATE 1 GRAM MISC 018 - 05/20/2020 Provider: Start: 01-20-2018 End: 01-20-2018 CARAFATE 1 GRAM MISC 018 - 01/20/2018 Provider: Start: 01-20-2018 End: 01-20-2018 CARAFATE 1GRAM MISC 01/21/20 18 - 01/20/2018 Provider: Start: 02-02-2017 take 1 tablet by jason th four times daily sucralfate (CARAFATE) 1 GM tablet Take 1 tablet by mouth 4 times daily 120 tablet 0 02/02/2017 Active tiZANidine 4 mg oral tablet (20 sources) Central alpha-2 Adrenergic Agonist Start: 07-21-2018 take 4 mg by mouth three times daily as needed Tizanidine Active 4 MG PO Three Times Daily as needed June 30, 2019 12:00am Start: 07-16-2018 End: 05-20-2020 [facility] - 05/20/2020 Provider: Start: 07-16-2018 End: 07-16-2018 TIZANIDINE 4 MG [facility] [place] - 07/16/2018 Provider: Start: 07-16-2018 End: 07-16-2018 TIZANIDINE 4MG [facility] [place] 07/16/1907/16/2018 Provider: take 2 tablets by mo ut at bedtime tizanidine 4 mg oral tablet take 2 tablets by mouth at bedtime if needed End: 10-21-2017 take 1 capsule by mouth three times daily tizanidine 4 mg oral capsule 10/21/2017 take 1 capsule (4 mg) by oral route 3 times per day triamcinolone acetonide 10 mg/ml injectable suspension (1 source) Corticosteroid Start: 03-04-2021 Kenalog 10 MG/ ML IJ SUSP 03/04/2021 Noemi iGvens HAND PAINT MIXER Start: 03-04-2021 Kenalog 10 MG/ ML IJ SUSP 03/04/2021 Noemi Givens CNP Comment on above: Patient tolerated th erapy well. No signs or symptoms of adverse reactions. Patient waited in clinic for 15 minutes after administration. Vitamin B Complex (B Complex-Vitamin B12) 1 EACH tablet (18 sources) Start: 07-06-2018 Vitamin B Complex (B Complex-Vitamin B12) 1 EACH tablet Active 1 EACH PO Daily July 06, 2018 2:07am Start: 07-06-2018 Vitamin B Comp aliyah (B Complex-Vitamin B12) 1 EACH tablet Active 1 EACH PO Daily July 06, 2018 1:00am Start: 07-06-2018 Vitamin B Comp aliyah (B Complex-Vitamin B12) 1 EACH tablet Active 1 EACH PO Daily July 06, 2018 12:00am Vitamin-B Complex Oral Table t (20 sources) Start: 01-31-2020 Vitamin-B Comp aliyah Oral Tablet 01/31/2020 Provider: aMty Love CNP Start: 02-15-2019 End: 01-31-2020 Vitamin-B Complex Oral Table t 02/15/2019 - 01/31/2020 Provider: Cindy Lopes CNP Start: 02-15-2019 End: 02-10-2020 Vitamin-B Complex Oral Table t 02/15/2019 - 02/10/2020 Provider: Cindy Lopes CNP Vitamin-B Complex Oral Table t (10 sources) Start: 01-31-2020 Vitamin-B Comp aliyah Oral Tablet 01/31/2020 Provider: Maty Love CNP Start: 02-15-2019 End: 01-31-2020 Vitamin-B Complex Oral Table t 02/15/2019 - 01/31/2020 Provider: Cindy Lopes CNP Completed/Discontinued Medications Medication Drug Class(es) Dates Sig (Normalized) Sig (Original) *HANDICAP PLACARD Miscellaneous (4 sources) Start: 10-29-2020 End: 10-30-2020 *HANDICAP PLACARD Miscellaneous 10/29/2020 - 10/30/2020 Provider: Shazia Bhatti CNP 6-aminocaproic acid 1000 mg oral tablet (8 sources) Antifibrinolytic Agent Start: 09-19-2020 End: 10-25-2020 Aminocaproic Acid 1000 MG Oral Tablet 09/19/2020 - 10/25/2020 Provider: Maty Love CNP ACESULFAME (10 sources) Start: 08-23-2020 End: 08-29-2020 Acesulfame Potassium Powder 08/23/2020 - 08/29/2020 Provider: Maty Love CNP Start: 08-23-2020 Acesulfame Pot assium Powder 08/23/2020 Provider: Maty Love CNP acetaminophen 300 mg / codeine phosphate 30 mg oral tablet (20 sources) Opioid Agonist Start: 11-25-2018 End: 01-06-2019 Tylenol with Codeine #3 300-30MG Oral Tablet 11/25/2018 - 01/06/2019 Provider: Jovanna Quispe DDNixon acetaminophen 325 mg / HYDROcodone bitartrate 5 mg oral tablet (20 sources) Opioid Agonist Start: 10-30-2014 End: 11-06-2014 take 1 tablet by mouth four times daily as needed hydrocodone-acetamino phen 5-325 mg oral tablet 10/30/2014 11/06/2014 take 1 tablet by oral route 4 times a day as needed patient UDS positive for benzodiazepine Start: 10-30-2014 End: 05-20-2020 HYDROcodone-Acetaminophen 5- 325 MG OR TABS 10/30/2014 - 05/20/2020 Provider: acetaminophen 325 mg / oxyCODONE hydrochloride 10 mg oral tablet (20 sources) Opioid Agonist Start: 01-06-2019 End: 03-04-2021 Percocet 10-325MG Oral Tablet 01/06/2019 - 03/04/2021 Provider: Start: 07-16-2018 End: 05-20-2020 Percocet 7.5-325MG Oral Tabl et 07/21/2018 Provider: Start: 07-16-2018 End: 05-20-2020 Percocet 5-325 MG OR TABS 07/16/2018 - 05/20/2020 Provider: Conversion Provider End: 08-10-2016 take 1 tablet by mouth every six hours as needed Percocet 5-325 mg oral tablet 08/10/2016 take 1 tablet by oral route every 6 hours as needed take 1 tablet by jason th three times daily Percocet 7.5-325 mg oral tablet take 1 tablet by mouth three times daily ActiMaris All-Natural Wound External Solution (5 sources) Start: 08-23-2020 End: 11-26-2020 ActiMaris All-Natural Wound External Solution 08/23/2020 - 11/26/2020 Provider: Maty Love CNP Start: 08-23-2020 ActiMaris All- Natural Wound External Solution 08/23/2020 Provider: Maty Love CNP Sri Allergy 180 MG OR TA BS (20 sources) Start: 07-16-2018 End: 07-16-2018 Sri Allergy 180 MG OR TA BS 07/16/2018 - 07/16/2018 Provider: Conversion Provider Start: 12-19-2014 End: 12-19-2014 Sri Allergy 180 MG OR TA BS 12/19/2014 - 12/19/2014 Provider: Start: 10-30-2014 End: 10-30-2014 Sri Allergy 180 MG OR TA BS 10/30/2014 - 10/30/2014 Provider: Start: 10-19-2014 End: 10-19-2014 Sri Allergy 180 MG OR TA BS 10/19/2014 - 10/19/2014 Provider: Sri Allergy 180 MG OR TA BS (20 sources) Start: 07-16-2018 End: 05-20-2020 Sri Allergy 180 MG OR TA BS 07/16/2018 - 05/20/2020 Provider: Conversion Provider Start: 12-19-2014 End: 05-20-2020 Sri Allergy 180 MG OR TA BS 12/19/2014 - 05/20/2020 Provider: Start: 10-30-2014 End: 05-20-2020 Sri Allergy 180 MG OR TA BS 10/30/2014 - 05/20/2020 Provider: Start: 10-19-2014 End: 05-20-2020 Sri Allergy 180 MG OR TA BS 10/19/2014 - 05/20/2020 Provider: Sri Allergy 180MG OR TAB S (20 sources) Start: 07-16-2018 End: 07-16-2018 Sri Allergy 180MG OR TAB S 07/16/2018 - 07/16/2018 Provider: Conversion Provider Start: 12-19-2014 End: 12-19-2014 Sri Allergy 180MG OR TAB S 12/19/2014 - 12/19/2014 Provider: Start: 10-30-2014 End: 10-30-2014 Sri Allergy 180MG OR TAB S 10/30/2014 - 10/30/2014 Provider: Start: 10-19-2014 End: 10-19-2014 Sri Allergy 180MG OR TAB S 10/19/2014 - 10/19/2014 Provider: Sri Allergy 180MG OR TAB S (15 sources) Start: 07-16-2018 End: 07-16-2018 Sri Allergy 180MG OR TAB S 07/16/2018 - 07/16/2018 Provider: Conversion Provider Start: 12-19-2014 End: 12-19-2014 Sri Allergy 180MG OR TAB S 12/19/2014 - 12/19/2014 Provider: Start: 10-30-2014 End: 10-30-2014 Sri Allergy 180MG OR TAB S 10/30/2014 - 10/30/2014 Provider: Start: 10-19-2014 End: 10-19-2014 Sri Allergy 180MG OR TAB S 10/19/2014 - 10/19/2014 Provider: amoxicillin 500 mg / clavulanate 125 mg oral tablet (20 sources) Penicillin-class Antibacterial Start: 07-13-2019 End: 07-17-2019 Augmentin 500-125 MG Oral Tablet 07/13/2019 - 07/17/2019 Provider: Cindy Lopes CNP Start: 12-19-2014 End: 08-10-2016 take 1 tablet by mouth every twelve hours Augmentin 875-125 mg oral tablet 12/19/2014 12/29/2014 take 1 tablet by oral route every 12 hours for 10 days Start: 12-19-2014 End: 05-20-2020 Augmentin 875-125MG OR TABS 07/16/2018 - 07/16/2018 Provider: Conversion Provider Artificial Tears 0.2-0.2-1% Ophthalmic Solution (20 sources) Start: 07-21-2018 End: 01-06-2019 Artificial Tears 0.2-0.2-1% Ophthalmic Solution 07/21/2018 - 01/06/2019 Provider: Start: 07-21-2018 Artificial Tea rs 0.2-0.2-1% Ophthalmic Solution 07/21/2018 Provider: Artificial Tears 0.2-0.2-1% Ophthalmic Solution (8 sources) Start: 07-21-2018 End: 01-06-2019 Artificial Tears 0.2-0.2-1% Ophthalmic Solution 07/21/2018 - 01/06/2019 Provider: Start: 07-21-2018 Artificial Tea rs 0.2-0.2-1% Ophthalmic Solution 07/21/2018 Provider: ARTIFICIAL TEARS 1-0.2-0.2% MISC (20 sources) Start: 07-16-2018 End: 07-16-2018 ARTIFICIAL TEARS 1-0.2-0.2% MISC 07/16/2018 - 07/16/2018 Provider: ARTIFICIAL TEARS 1-0.2-0.2% MISC (8 sources) Start: 07-16-2018 End: 05-20-2020 ARTIFICIAL TEARS 1-0.2-0.2% MISC 07/16/2018 - 05/20/2020 Provider: Start: 07-16-2018 End: 07-16-2018 ARTIFICIAL TEARS 1-0.2-0.2% MISC 07/16/2018 - 07/16/2018 Provider: azithromycin 250 mg oral tablet (15 sources) Macrolide Antimicrobial Start: 01-24-2021 End: 03-04-2021 Azithromycin 250 MG Oral Tablet 01/24/2021 - 03/04/2021 Provider: Noemi Givens HAND PAINT MIXER Start: 11-26-2020 End: 12-01-2020 Azithromycin 250 MG Oral Tab let 11/26/2020 - 12/01/2020 Provider: Shazia Bhatti CNP Start: 09-07-2020 End: 09-19-2020 Zithromax 250 MG Oral Tablet 09/07/2020 - 09/19/2020 Provider: Ro Austin CNP BHI Mucus Relief Oral Tablet (5 sources) Start: 08-23-2020 End: 11-26-2020 BHI Mucus Relief Oral Tablet 08/23/2020 - 11/26/2020 Provider: Maty Love CNP Start: 08-23-2020 BHI Mucus Reli ef Oral Tablet 08/23/2020 Provider: Maty Love CNP brompheniramine maleate 0.2 mg/ml / dextromethorphan hydrobromide 1 mg/ml / pseudoePHEDrine hydrochloride 3 mg/ml oral solution (2 sources) alpha-Adrenergic Agonist, Uncompetitive C-nfheco-B-aspartate Receptor Antagonist, Sigma-1 Agonist Start: 12-19-2014 End: 05-09-2015 take 10 mL by mouth every four hours as needed Brotapp DM 1-15-5 mg/5 mL oral elixir 12/19/2014 05/09/2015 take 10 milliliters by oral route every 4 hours as needed BROTAPP DM 1-15-5 MG/5 ML MISC (17 sources) Start: 12-19-2014 End: 12-19-2014 BROTAPP DM 1-15-5 MG/5 ML MISC 12/19/2014 - 12/19/2014 Provider: BROTAPP DM 1-15-5 MG/5 ML MISC (5 sources) Start: 12-19-2014 End: 05-20-2020 BROTAPP DM 1-15-5 MG/5 ML MISC 12/19/2014 - 05/20/2020 Provider: BROTAPP DM 1-15-5MG/5 ML MISC (4 sources) Start: 12-19-2014 End: 12-19-2014 BROTAPP DM 1-15-5MG/5 ML MISC 12/19/2014 - 12/19/2014 Provider: FRANCHESKA DM 1-15-5MG/5 ML MISC (3 sources) Start: 12-19-2014 End: 12-19-2014 FRANCHESKA DM 1-15-5MG/5 ML MISC 12/19/2014 - 12/19/2014 Provider: Kelvin actuat budesonide 0.16 mg/actuat / formoterol fumarate 0.0045 mg/actuat metered dose inhaler (20 sources) Corticosteroid, beta2-Adrenergic Agonist Start: 07-21-2018 End: 04-26-2020 Symbicort 160-4.5MCG/ACT Inhalation Aerosol 01/06/2019 - 08/18/2019 Provider: Start: 07-16-2018 End: 07-16-2018 SYMBICORT 160-4.5MCG/ACTUAT MISC 07/16/2018 - 07/16/2018 Provider: Start: 01-06-2018 Budesonide-For moterol (Symbicort) 1 AER HFA aerosol inhaler Active 2 AER IN Twice Daily January 06, 2018 1:39pm Start: 01-06-2018 Budesonide-For moterol (Symbicort) 1 AER HFA aerosol inhaler Active 2 AER IN Twice Daily January 06, 2018 12:00am Start: 01-06-2018 Budesonide-For moterol (Symbicort) 1 AER HFA aerosol inhaler Active 2 AER IN Twice Daily January 05, 2018 11:00pm take 2 puff(s) by in halation twice daily budesonide-formoterol (SYMBICORT) 160-4.5 MCG/ACT AERO Inhale 2 puffs into the lungs 2 times daily 0 Active take 2 puff(s) by in halation twice daily in the morning Symbicort 160-4.5 mcg/actuation inhalation HFA aerosol inhaler inhale 2 puffs by inhalation route 2 times per day in the morning and evening for 30 days BUTRANS 15 MCG/HOUR MISC (17 sources) Start: 07-16-2018 End: 07-16-2018 BUTRANS 15 MCG/HOUR MISC 07/16/2018 - 07/16/2018 Provider: BUTRANS 15 MCG/HOUR MISC (5 sources) Start: 07-16-2018 End: 05-20-2020 BUTRANS 15 MCG/HOUR MISC 07/16/2018 - 05/20/2020 Provider: cefTRIAXone 1000 mg injection (20 sources) Cephalosporin Antibacterial Start: 07-22-2018 cefTRIAXone Sodium 1 GM IJ SOLR 07/13/2019 Cindy Lopes HAND PAINT MIXER Comment on above: Patient tolerated th erapy well. No signs or symptoms of adverse reactions. cephalexin 500 mg oral capsule (16 sources) Cephalosporin Antibacterial Start: 11-27-2019 End: 01-23-2020 Keflex 500 MG Oral Capsule 11/27/2019 - 01/23/2020 Provider: Maty Love CNP CHLORHEX GLU KELLY 0.12% MISC (20 sources) Start: 07-10-2015 End: 07-10-2015 CHLORHEX GLU KELLY 0.12% MISC 07/10/2015 - 07/10/2015 Provider: CHLORHEX GLU KELLY 0.12% MISC (8 sources) Start: 07-10-2015 End: 05-20-2020 CHLORHEX GLU KELLY 0.12% MISC 07/10/2015 - 05/20/2020 Provider: Start: 07-10-2015 End: 07-10-2015 CHLORHEX GLU KELLY 0.12% MISC 07/10/2015 - 07/10/2015 Provider: chlorhexidine gluconate 1.2 mg/ml mouthwash (2 sources) Start: 07-10-2015 chlorhexidine gluconate 0.12 % mucous membrane mouthwash 07/10/2015 clindamycin 300 mg oral capsule (20 sources) Lincosamide Antibacterial Start: 11-24-2018 End: 12-04-2018 Clindamycin HCl 300MG Oral Capsule 11/24/2018 - 12/04/2018 Provider: Jovanna Quispe DDS Start: 07-10-2015 End: 05-20-2020 CLINDAMYCIN CAP 300MG 300 MG MISC 07/10/2015 - 05/20/2020 Provider: Start: 07-10-2015 End: 07-10-2015 CLINDAMYCIN CAP 300MG 300 MG MISC 07/10/2015 - 07/10/2015 Provider: Start: 07-10-2015 End: 07-10-2015 CLINDAMYCIN CAP 300MG MISC 0 07/10/2015 - 07/10/2015 Provider: Start: 07-10-2015 clindamycin HC l 300 mg oral capsule 07/10/2015 dextromethorphan hydrobromide 2 mg/ml / guaiFENesin 20 mg/ml oral solution (2 sources) Uncompetitive H-lofiqk-H-aspartate Receptor Antagonist, Sigma-1 Agonist Start: 10-01-2016 take 10 mL by mouth every four hours as needed Tussin DM 10-100 mg/5 mL oral syrup 10/01/2016 take 10 milliliters by oral route every 4 hours as needed for coiuiugh dextromethorphan hydrobromide 3 mg/ml / promethazine hydrochloride 1.25 mg/ml oral solution (20 sources) Phenothiazine, Uncompetitive O-uqlere-G-aspartate Receptor Antagonist, Sigma-1 Agonist Start: 07-13-2019 End: 11-26-2020 Promethazine-DM 6.25-15 MG/5ML Oral Syrup 07/13/2019 - 11/26/2020 Provider: Cindy Lopes CNP DOCUSATE SODIUM 100 MG MISC (20 sources) Start: 07-16-2018 End: 07-16-2018 DOCUSATE SODIUM 100 MG MISC 07/16/2018 - 07/16/2018 Provider: Start: 05-09-2015 End: 05-09-2015 DOCUSATE SODIUM 100 MG MISC 05/09/2015 - 05/09/2015 Provider: DOCUSATE SODIUM 100MG MISC (12 sources) Start: 07-16-2018 End: 07-16-2018 DOCUSATE SODIUM 100MG MISC 07/16/2018 - 07/16/2018 Provider: Start: 05-09-2015 End: 05-09-2015 DOCUSATE SODIUM 100MG MISC 1 07/09/2014 - 05/09/2015 Provider: EQL Vitamin D3 5000UNIT Oral Capsule (20 sources) Start: 07-21-2018 End: 09-13-2018 EQL Vitamin D3 5000UNIT Oral Capsule 07/21/2018 - 09/13/2018 Provider: EQL Vitamin D3 5000UNIT Oral Capsule (8 sources) Start: 07-21-2018 End: 09-13-2018 EQL Vitamin D3 5000UNIT Oral Capsule 07/21/2018 - 09/13/2018 Provider: Start: 07-21-2018 EQL Vitamin D3 5000UNIT Oral Capsule 07/21/2018 Provider: Ergocalciferol (7 sources) Provitamin D2 Compound Start: 10-30-2014 End: 10-30-2014 ERGOCALCIFEROL (VITAMIN D2) 50,000UNIT [facility] [place]/30/2014 - 10/30/2014 Provider: ERGOCALCIFEROL (VITAMIN D2) 50,000 UNIT MISC (17 sources) Start: 10-30-2014 End: 10-30-2014 ERGOCALCIFEROL (VITAMIN D2) 50,000 UNIT MISC 10/30/2014 - 10/30/2014 Provider: ERGOCALCIFEROL (VITAMIN D2) 50,000 UNIT MISC (5 sources) Start: 10-30-2014 End: 05-20-2020 ERGOCALCIFEROL (VITAMIN D2) 50,000 [facility] 10/30[facility] - 05/20/2020 Provider: 72 hr fentaNYL 0.0375 mg/hr transdermal system (20 sources) Opioid Agonist Start: 01-06-2019 End: 08-18-2019 fentaNYL 37.5MCG/HR Transdermal Patch 72 Hour 01/06/2019 - 08/18/2019 Provider: Start: 07-16-2018 End: 05-20-2020 F[place] PATCH [facility] [place]/16/19 - 05/20/2020 Provider: Start: 07-16-2018 End: 07-16-2018 FENTANYL PATCH [facility] [place] 07/16/19 - 07/16/2018 Provider: fentaNYL (DURAGE SIC) 25 MCG/HR Place 1 patch onto the skin every 72 hours . 0 Active End: 01-20-2018 fentanyl patch 01/20/2018 1 pa tch every 3 days fexofenadine hydrochloride 180 mg oral tablet (2 sources) Histamine-1 Receptor Antagonist Start: 12-19-2014 End: 12-28-2014 take 1 tablet by mouth once daily Sri Allergy 180 mg oral tablet 12/19/2014 12/28/2014 take 1 tablet (180 mg) by oral route once daily FLAXSEED OIL 1,000 MG MISC (17 sources) Start: 07-16-2018 End: 07-16-2018 FLAXSEED OIL 1,000 MG MISC 07/16/2018 - 07/16/2018 Provider: FLAXSEED OIL 1,000 MG MISC (5 sources) Start: 07-16-2018 End: 05-20-2020 FLAXSEED OIL 1,000 MG MISC 07/16/2018 - 05/20/2020 Provider: FLAXSEED OIL 1,000MG MISC (4 sources) Start: 07-16-2018 End: 07-16-2018 FLAXSEED OIL 1,000MG MISC 07/16/2018 - 07/16/2018 Provider: FLAXSEED OIL 1,000MG MISC (3 sources) Start: 07-16-2018 End: 07-16-2018 FLAXSEED OIL 1,000MG MISC 07/16/2018 - 07/16/2018 Provider: FLONASE 50 MCG/ACTUAT MISC (17 sources) Start: 12-12-2015 End: 12-12-2015 FLONASE 50 MCG/ACTUAT MISC 12/12/2015 - 12/12/2015 Provider: FLONASE 50 MCG/ACTUAT MISC (5 sources) Start: 12-12-2015 End: 05-20-2020 FLONASE 50 MCG/ACTUAT MISC 12/12/2015 - 05/20/2020 Provider: FLONASE ALLERGY RELIEF 50 MCG/ACTUAT MISC (20 sources) Start: 07-16-2018 End: 07-16-2018 FLONASE ALLERGY RELIEF 50 MCG/ACTUAT MISC 07/16/2018 - 07/16/2018 Provider: Start: 12-19-2014 End: 12-19-2014 FLONASE ALLERGY RELIEF 50 MC G/ACTUAT MISC 12/19/2014 - 12/19/2014 Provider: Start: 10-30-2014 End: 10-30-2014 FLONASE ALLERGY RELIEF 50 MC G/ACTUAT MISC 10/30/2014 - 10/30/2014 Provider: Start: 10-19-2014 End: 10-19-2014 FLONASE ALLERGY RELIEF 50 MC G/ACTUAT MISC 10/19/2014 - 10/19/2014 Provider: FLONASE ALLERGY RELIEF 50 MCG/ACTUAT MISC (20 sources) Start: 07-16-2018 End: 05-20-2020 FLONASE ALLERGY RELIEF 50 MCG/ACTUAT MISC 07/16/2018 - 05/20/2020 Provider: Start: 12-19-2014 End: 05-20-2020 FLONASE ALLERGY RELIEF 50 MC G/ACTUAT MISC 12/19/2014 - 05/20/2020 Provider: Start: 10-30-2014 End: 05-20-2020 FLONASE ALLERGY RELIEF 50 MC G/ACTUAT MISC 10/30/2014 - 05/20/2020 Provider: Start: 10-19-2014 End: 05-20-2020 FLONASE ALLERGY RELIEF 50 MC G/ACTUAT MISC 10/19/2014 - 05/20/2020 Provider: FLONASE ALLERGY RELIEF 50MCG/ACTUAT MISC (20 sources) Start: 07-16-2018 End: 07-16-2018 FLONASE ALLERGY RELIEF 50MCG/ACTUAT MISC 07/16/2018 - 07/16/2018 Provider: Start: 12-19-2014 End: 12-19-2014 FLONASE ALLERGY RELIEF 50MCG /ACTUAT MISC 12/19/2014 - 12/19/2014 Provider: Start: 10-30-2014 End: 10-30-2014 FLONASE ALLERGY RELIEF 50MCG /ACTUAT MISC 10/30/2014 - 10/30/2014 Provider: Start: 10-19-2014 End: 10-19-2014 FLONASE ALLERGY RELIEF 50MCG /ACTUAT MISC 10/19/2014 - 10/19/2014 Provider: FLONASE ALLERGY RELIEF 50MCG/ACTUAT MISC (15 sources) Start: 07-16-2018 End: 07-16-2018 FLONASE ALLERGY RELIEF 50MCG/ACTUAT MISC 07/16/2018 - 07/16/2018 Provider: Start: 12-19-2014 End: 12-19-2014 FLONASE ALLERGY RELIEF 50MCG /ACTUAT MISC 12/19/2014 - 12/19/2014 Provider: Start: 10-30-2014 End: 10-30-2014 FLONASE ALLERGY RELIEF 50MCG /ACTUAT MISC 10/30/2014 - 10/30/2014 Provider: Start: 10-19-2014 End: 10-19-2014 FLONASE ALLERGY RELIEF 50MCG /ACTUAT MISC 10/19/2014 - 10/19/2014 Provider: FLUTICASONE 50 MCG/ACTUAT MISC (17 sources) Start: 05-09-2015 End: 05-09-2015 FLUTICASONE 50 MCG/ACTUAT MISC 05/09/2015 - 05/09/2015 Provider: FLUTICASONE 50 MCG/ACTUAT MISC (5 sources) Start: 05-09-2015 End: 05-20-2020 FLUTICASONE 50 MCG/ACTUAT MISC 05/09/2015 - 05/20/2020 Provider: furosemide 20 mg oral tablet (20 sources) Loop Diuretic Start: 10-19-2016 End: 05-20-2020 Lasix 20MG OR TABS 11/02/2016 - 11/02/2016 Provider: glycerin 2 mg/ml / hypromellose 2 mg/ml / polyethylene glycol 400 10 mg/ml ophthalmic solution (2 sources) Non-Standardized Chemical Allergen take 1 drop(s) into the eye(s) four times daily Artificial Tears 1-0.2-0.2 % ophthalmic drops instill 1 drop into each eye 4 times daily handicap placard (2 sources) Start: 11-22-[address] [facility] [place] 11/22/2015 use as directed. Duration= 5 year HANDICAP PLACARD MISC (20 sources) Start: 11-22-2015 End: 11-22-2015 HANDICAP PLACARD MISC 11/22/2015 - 11/22/2015 Provider: Start: 10-02-2015 End: 10-02-2015 HANDICAP PLACARD MISC 2015 - 10/02/2015 Provider: Start: 10-30-2014 End: 10-30-2014 HANDICAP PLACARD MISC 2014 - 10/30/2014 Provider: HANDICAP PLACARD MISC (20 sources) Start: 11-22-2015 End: 05-20-2020 HANDICAP PLACARD MISC 2015 - 05/20/2020 Provider: Start: 11-22-2015 End: 11-22-2015 HANDICAP PLACARD MISC 2015 - 11/22/2015 Provider: Start: 10-02-2015 End: 05-20-2020 HANDICAP PLACARD MISC 2015 - 05/20/2020 Provider: Start: 10-02-2015 End: 10-02-2015 HANDICAP PLACARD MISC 2015 - 10/02/2015 Provider: Start: 10-30-2014 End: 05-20-2020 HANDICAP PLACARD MISC 2014 - 05/20/2020 Provider: Start: 10-30-2014 End: 10-30-2014 HANDICAP PLACARD MISC 2014 - 10/30/2014 Provider: Handicap Placard XX (8 sources) Start: 07-21-2018 End: 10-29-2020 Handicap Placard XX 07/21/19 - 10/29/2020 Provider: Start: 07-21-[address] XX 07/21/2018 Provider: hydroCHLOROthiazide 25 mg oral tablet (20 sources) Thiazide Diuretic Start: 10-01-2016 End: 05-20-2020 hydroCHLOROthiazide 25MG TABS 11/02/2016 - 11/02/2016 Provider: HYDROmorphone (20 sources) Opioid Agonist Start: 07-16-2018 End: 05-20-2020 Dilaudid 2 MG OR TABS 07/16/2018 - 05/20/2020 Provider: Conversion Provider Start: 07-16-2018 End: 05-20-2020 Dilaudid 4 MG OR TABS 2018 - 05/20/2020 Provider: Conversion Provider Start: 07-16-2018 End: 05-20-2020 HYDROMORPHONE 2 MG MISC 06/22 - 05/20/2020 Provider: Start: 07-16-2018 End: 07-16-2018 HYDROMORPHONE 2 MG MISC 06/22 - 07/16/2018 Provider: Start: 07-16-2018 End: 07-16-2018 HYDROMORPHONE 2MG MISC 07/16 - 07/16/2018 Provider: End: 12-14-2016 take 1 tablet by mouth twice daily Dilaudid 2 mg oral tablet 12/14/2016 take 1 tab bid End: 10-21-2017 take 1 tablet by mouth every four to six hours as needed hydromorphone 2 mg oral tablet 10/21/2017 take 1 tablet (2 mg) by oral route every 4-6 hours as needed End: 11-02-2016 take 1 tablet by mouth every six hours as needed Dilaudid 4 mg oral tablet 11/02/2016 take 1 tablet (4 mg) by oral route every 6 hours as needed hydrOXYzine (20 sources) Antihistamine Start: 07-16-2018 End: 05-20-2020 VISTARIL 50 MG MISC 07/16/19 19 - 05/20/2020 Provider: Start: 07-16-2018 End: 07-16-2018 VISTARIL 50 MG MISC 07/16/1907/16/2018 Provider: Start: 07-16-2018 End: 07-16-2018 VISTARIL 50MG MISC 07/16/2018 Provider: Start: 10-30-2014 End: 05-09-2015 take 1 capsule by mouth three times daily as needed Vistaril 50 mg oral capsule 10/30/2014 05/09/2015 take 1 capsule by oral route 3 times a day as needed Start: 10-30-2014 End: 05-20-2020 VISTARIL 50 MG MISC 10/31/1905/20/2020 Provider: Start: 10-30-2014 End: 10-30-2014 VISTARIL 50 MG MISC 10/31/1910/30/2014 Provider: Start: 10-30-2014 End: 10-30-2014 VISTARIL 50MG MISC 10/30/2014 Provider: 2 ml ketorolac tromethamine 30 mg/ml prefilled syringe (20 sources) Nonsteroidal Anti-inflammatory Drug, Cyclooxygenase Inhibitor Start: 07-13-2019 Ketorolac Tromethamine 60 MG/2ML IM SOLN 07/13/2019 Cindy Lopes CNP Start: 02-05-2017 End: 10-21-2017 take 1 tablet by mouth every six hours as needed ketorolac 10 mg oral tablet 02/05/2017 10/21/2017 take 1 tablet (10 mg) by oral route every 6 hours as needed for up to 5 days total use Start: 02-05-2017 End: 05-20-2020 KETOROLAC 10 MG MISC - 05/20/2020 Provider: Start: 02-05-2017 End: 02-05-2017 KETOROLAC 10 MG MISC - 02/05/2017 Provider: Start: 02-05-2017 End: 02-05-2017 KETOROLAC 10MG MISC 02/06/2002/05/2017 Provider: Start: 01-22-2017 End: 05-20-2020 KETOROLAC 10 MG MISC - 05/20/2020 Provider: Start: 01-22-2017 End: 01-22-2017 KETOROLAC 10 MG MISC 017 - 01/22/2017 Provider: Start: 01-22-2017 End: 01-22-2017 KETOROLAC 10MG MISC 01/23/20 17 - 01/22/2017 Provider: Comment on above: Patient tolerated th erapy well. No signs or symptoms of adverse reactions. Probiotic Acidophilus 1.5 mg (250 million cell) oral capsule (2 sources) Start: 11-02-19 End: 11-04-19 take 1 capsule by mouth twice daily Probiotic Acidophilus 1.5 mg (250 million cell) oral capsule 11/01/2017 11/03/2017 take 1 capsule by oral route 2 times a day for 30 days levocetirizine dihydrochloride 5 mg oral tablet (20 sources) Histamine-1 Receptor Antagonist Start: 07-21-19 End: 11-27-19 Levocetirizine Dihydrochloride 5 MG Oral Tablet 08/18/2019 - 02/05/2020 Provider: Maty Love CNP Start: 07-16-2018 End: 05-20-2020 LEVOCETIRIZINE 5 MG MISC - 05/20/2020 Provider: Start: 07-16-2018 End: 07-16-2018 LEVOCETIRIZINE 5 MG MISC - 07/16/2018 Provider: Start: 07-16-2018 End: 07-16-2018 LEVOCETIRIZINE 5MG MISC 06/22 - 07/16/2018 Provider: levoFLOXacin 250 mg oral tablet (20 sources) Quinolone Antimicrobial Start: 07-17-2019 End: 08-18-2019 Levaquin 250 MG Oral Tablet 07/17/2019 - 08/18/2019 Provider: Cindy Lopes HAND PAINT MIXER Start: 12-30-2016 End: 05-20-2020 Levaquin 500MG OR TABS 12/30 - 12/30/2016 Provider: lidocaine hydrochloride 10 mg/ml injectable solution (20 sources) Antiarrhythmic, Amide Local Anesthetic Start: 07-13-2019 Xylocaine 1% IJ SOLN 07/13/2019 Cindy Lopes HAND PAINT MIXER Start: 07-03-2015 End: 10-21-2017 Lidocaine Viscous 2 % mucous membrane solution 07/03/2015 10/21/2017 Comment on above: Patient tolerated th erapy well. No signs or symptoms of adverse reactions. LIDOCAINE KELLY 2% VISC MISC (20 sources) Start: 07-03-2015 End: 07-03-2015 LIDOCAINE KELLY 2% VISC MISC 07/03/2015 - 07/03/2015 Provider: LIDOCAINE KELLY 2% VISC MISC (8 sources) Start: 07-03-2015 End: 05-20-2020 LIDOCAINE KELLY 2% VISC MISC 07/03/2015 - 05/20/2020 Provider: Start: 07-03-2015 End: 07-03-2015 LIDOCAINE KELLY 2% VISC MISC 0 07/03/2015 - 07/03/2015 Provider: linseed oil 1000 mg oral capsule (2 sources) take 1-2 capsules by mouth once daily flaxseed oil 1,000 mg oral capsule take 1-2 capsules daily LORazepam 0.5 mg oral tablet (20 sources) Benzodiazepine Start: 07-16-2018 End: 05-20-2020 Ativan 0.5 MG OR TABS 07/16/2018 - 05/20/2020 Provider: Albin Avina magnesium (20 sources) Start: 03-05-2020 End: 11-26-2020 Magnesium 250 MG Oral Tablet 03/05/2020 - 11/26/2020 Provider: Maty Love CNP Start: 03-05-2020 Magnesium 250 MG Oral Tablet 03/05/2020 Provider: Maty Love CNP Start: 02-21-2020 End: 09-19-2020 Magnesium 200 MG Oral Tablet 02/21/2020 - 09/19/2020 Provider: Maty Love CNP Start: 02-21-2020 Magnesium 200 MG Oral Tablet 02/21/2020 Provider: Maty Love CNP Start: 11-02-2019 End: 02-21-2020 Magnesium 200 MG Oral Tablet 11/02/2019 - 02/21/2020 Provider: Maty Love CNP Start: 11-02-2019 Magnesium 200 MG Oral Tablet 11/02/2019 Provider: Maty Love CNP Start: 04-06-2019 End: 11-02-2019 Magnesium 200 MG Oral Tablet 04/06/2019 - 11/02/2019 Provider: Cindy Lopes CNP Start: 09-29-2018 End: 04-06-2019 Magnesium 200MG Oral Tablet 09/29/2018 - 04/06/2019 Provider: Cindy Lopes CNP Start: 09-29-2018 End: 04-27-2019 Magnesium 200MG Oral Tablet 09/29/2018 - 04/27/2019 Provider: Cindy Lopes CNP Start: 07-21-2018 End: 01-06-2019 Magnesium 200MG Oral Tablet 07/21/2018 - 01/06/2019 Provider: Start: 07-21-2018 Magnesium 200M G Oral Tablet 07/21/2018 Provider: Start: 09-01-2017 take 1 tablet by jason th twice daily magnesium 200 mg oral tablet 09/01/2017 take 1 tablet by oral route 2 times a day Start: 09-01-2017 End: 05-20-2020 Magnesium 200 MG OR TABS - 05/20/2020 Provider: Start: 09-01-2017 End: 09-01-2017 Magnesium 200 MG OR TABS - 09/01/2017 Provider: Start: 09-01-2017 End: 09-01-2017 Magnesium 200MG OR TABS 08/19 - 09/01/2017 Provider: Start: 08-10-2016 End: 05-20-2020 Magnesium 200 MG OR TABS - 05/20/2020 Provider: Start: 08-10-2016 End: 08-10-2016 Magnesium 200 MG OR TABS - 08/10/2016 Provider: Start: 08-10-2016 End: 08-10-2016 Magnesium 200MG OR TABS 07/23 - 08/10/2016 Provider: 1 ml methylPREDNISolone acetate 80 mg/ml injection (20 sources) Corticosteroid Start: 07-22-2018 DEPO-Medrol 80 MG/ML IJ SUSP 07/22/2018 Cindy Lopes CNP Comment on above: Patient tolerated th erapy well. No signs or symptoms of adverse reactions. metroNIDAZOLE 500 mg oral tablet (20 sources) Nitroimidazole Antimicrobial Start: 01-22-2017 End: 05-20-2020 Flagyl 500MG OR TABS 02/05/2017 - 02/05/2017 Provider: naproxen 500 mg oral tablet (20 sources) Nonsteroidal Anti-inflammatory Drug Start: 11-04-2015 End: 05-20-2020 Naproxen 500MG OR TABS 07/16/2018 - 07/16/2018 Provider: Conversion Provider Start: 06-03-2015 End: 05-20-2020 NAPROXEN 375 mg MISC 015 - 05/20/2020 Provider: Start: 06-03-2015 End: 06-03-2015 NAPROXEN 375 mg MISC 015 - 06/03/2015 Provider: Start: 06-03-2015 End: 08-10-2016 take 1 tablet by mouth twice daily as needed naproxen 375 mg oral tablet,delayed release (DR/EC) 06/03/2015 08/10/2016 take 1 tablet by oral route 2 times a day as needed Start: 05-02-2015 End: 05-09-2015 take 1 tablet by mouth twice daily as needed naproxen 375 mg oral tablet,delayed release (DR/EC) 05/02/2015 05/09/2015 take 1 tablet (375 mg) by oral route 2 times per day as needed with food Start: 05-02-2015 End: 05-20-2020 NAPROXEN 375 mg MISC 015 - 05/20/2020 Provider: Start: 05-02-2015 End: 05-02-2015 NAPROXEN 375 mg MISC 015 - 05/02/2015 Provider: Start: 10-30-2014 End: 05-20-2020 NAPROXEN 375 mg MISC 015 - 05/20/2020 Provider: Start: 10-30-2014 End: 10-30-2014 NAPROXEN 375 mg MISC 015 - 10/30/2014 Provider: Start: 10-19-2014 End: 05-20-2020 NAPROXEN 375 mg MISC 015 - 05/20/2020 Provider: Start: 10-19-2014 End: 10-19-2014 NAPROXEN 375 mg MISC 015 - 10/19/2014 Provider: nebulizer machine (2 sources) Start: 10-01-2016 nebulizer mach ine 1 10/01/2016 use up to QID NEBULIZER MACHINE 1 MISC (20 sources) Start: 10-01-2016 End: 10-01-2016 NEBULIZER MACHINE 1 MISC - 10/01/2016 Provider: NEBULIZER MACHINE 1 MISC (8 sources) Start: 10-01-2016 End: 05-20-2020 NEBULIZER MACHINE 1 MISC - 05/20/2020 Provider: Start: 10-01-2016 End: 10-01-2016 NEBULIZER MACHINE 1 MISC - 10/01/2016 Provider: neoprene knee braces (2 sources) Start: 01-22-2017 neoprene knee braces 1 01/22/2017 wear when up NEOPRENE KNEE BRACES 1 MISC (20 sources) Start: 01-22-2017 End: 01-22-2017 NEOPRENE KNEE BRACES 1 MISC 01/22/2017 - 01/22/2017 Provider: NEOPRENE KNEE BRACES 1 MISC (8 sources) Start: 01-22-2017 End: 05-20-2020 NEOPRENE KNEE BRACES 1 MISC 01/22/2017 - 05/20/2020 Provider: Start: 01-22-2017 End: 01-22-2017 NEOPRENE KNEE BRACES 1 MISC 01/22/2017 - 01/22/2017 Provider: predniSONE 20 mg oral tablet (20 sources) Corticosteroid Start: 01-20-2018 take 1 tablet by mouth twice daily prednisone 20 mg oral tablet 01/20/2018 take 1 tablet (20 mg) by oral route 2 times per day Start: 09-09-2016 End: 05-20-2020 predniSONE 20MG OR TABS 08/07/2017 - 01/20/2018 Provider: Probiotic (4 sources) Start: 01-20-2018 End: 08-18-2018 take 1 capsule by mouth twice daily Probiotic 5 billion cell oral capsule, sprinkle 01/20/2018 08/18/2018 take 1 capsule by oral route or sprinkle on food 2 times a day for 30 days Start: 11-03-2017 End: 06-01-2018 take 1 capsule by mouth twice daily Probiotic 5 billion cell oral capsule, sprinkle 11/03/2017 06/01/2018 take 1 capsule by oral route or sprinkle on food 2 times a day for 30 days was called into pharmacy by deandre cyr Start: 10-21-2017 End: 11-01-2017 take 1 capsule by mouth twice daily Probiotic 20 billion cell oral capsule 10/21/2017 11/01/2017 take 1 capsule by oral route 2 times a day PROBIOTIC 10 billion CELL NE SC (20 sources) Start: 01-24-2018 End: 01-24-2018 PROBIOTIC 10 billion CELL NE SC 01/24/2018 - 01/24/2018 Provider: PROBIOTIC 10 billion CELL NE SC (10 sources) Start: 01-24-2018 End: 05-20-2020 PROBIOTIC 10 billion CELL NE SC 01/24/2018 - 05/20/2020 Provider: PROBIOTIC 10 billionCELL MIS C (8 sources) Start: 01-24-2018 End: 01-24-2018 PROBIOTIC 10 billionCELL MIS C 01/24/2018 - 01/24/2018 Provider: PROBIOTIC 10 billionCELL MIS C (6 sources) Start: 01-24-2018 End: 01-24-2018 PROBIOTIC 10 billionCELL MIS C 01/24/2018 - 01/24/2018 Provider: PROBIOTIC 20 BILLION CE MISC (20 sources) Start: 10-21-2017 End: 10-21-2017 PROBIOTIC 20 BILLION CE MISC 10/21/2017 - 10/21/2017 Provider: Start: 03-08-2017 End: 03-08-2017 PROBIOTIC 20 BILLION CE MISC 03/08/2017 - 03/08/2017 Provider: Start: 02-05-2017 End: 02-05-2017 PROBIOTIC 20 BILLION CE MISC 02/05/2017 - 02/05/2017 Provider: Start: 01-22-2017 End: 01-22-2017 PROBIOTIC 20 BILLION CE MISC 01/22/2017 - 01/22/2017 Provider: PROBIOTIC 20 BILLION CE MISC (20 sources) Start: 10-21-2017 End: 05-20-2020 PROBIOTIC 20 BILLION CE MISC 10/21/2017 - 05/20/2020 Provider: Start: 03-08-2017 End: 05-20-2020 PROBIOTIC 20 BILLION CE MISC 03/08/2017 - 05/20/2020 Provider: Start: 02-05-2017 End: 05-20-2020 PROBIOTIC 20 BILLION CE MISC 02/05/2017 - 05/20/2020 Provider: Start: 01-22-2017 End: 05-20-2020 PROBIOTIC 20 BILLION CE MISC 01/22/2017 - 05/20/2020 Provider: PROBIOTIC 20BILLION CE MISC (16 sources) Start: 10-21-2017 End: 10-21-2017 PROBIOTIC 20BILLION CE MISC 10/21/2017 - 10/21/2017 Provider: Start: 03-08-2017 End: 03-08-2017 PROBIOTIC 20BILLION CE MISC 03/08/2017 - 03/08/2017 Provider: Start: 02-05-2017 End: 02-05-2017 PROBIOTIC 20BILLION CE MISC 02/05/2017 - 02/05/2017 Provider: Start: 01-22-2017 End: 01-22-2017 PROBIOTIC 20BILLION CE MISC 01/22/2017 - 01/22/2017 Provider: PROBIOTIC 20BILLION CE MISC (12 sources) Start: 10-21-2017 End: 10-21-2017 PROBIOTIC 20BILLION CE MISC 10/21/2017 - 10/21/2017 Provider: Start: 03-08-2017 End: 03-08-2017 PROBIOTIC 20BILLION CE MISC 03/08/2017 - 03/08/2017 Provider: Start: 02-05-2017 End: 02-05-2017 PROBIOTIC 20BILLION CE MISC 02/05/2017 - 02/05/2017 Provider: Start: 01-22-2017 End: 01-22-2017 PROBIOTIC 20BILLION CE MISC 01/22/2017 - 01/22/2017 Provider: PROBIOTIC 5 BILLION CE MISC (20 sources) Start: 01-20-2018 End: 01-20-2018 PROBIOTIC 5 BILLION CE MISC 01/20/2018 - 01/20/2018 Provider: Start: 11-03-2017 End: 11-03-2017 PROBIOTIC 5 BILLION CE MISC 11/03/2017 - 11/03/2017 Provider: PROBIOTIC 5 BILLION CE MISC (10 sources) Start: 01-20-2018 End: 05-20-2020 PROBIOTIC 5 BILLION CE MISC 01/20/2018 - 05/20/2020 Provider: Start: 11-03-2017 End: 05-20-2020 PROBIOTIC 5 BILLION CE MISC 11/03/2017 - 05/20/2020 Provider: PROBIOTIC 5BILLION CE MISC (8 sources) Start: 01-20-2018 End: 01-20-2018 PROBIOTIC 5BILLION CE MISC 01/20/2018 - 01/20/2018 Provider: Start: 11-03-2017 End: 11-03-2017 PROBIOTIC 5BILLION CE MISC 0 11/03/2017 - 11/03/2017 Provider: PROBIOTIC 5BILLION CE MISC (6 sources) Start: 01-20-2018 End: 01-20-2018 PROBIOTIC 5BILLION CE MISC 01/20/2018 - 01/20/2018 Provider: Start: 11-03-2017 End: 11-03-2017 PROBIOTIC 5BILLION CE MISC 0 11/03/2017 - 11/03/2017 Provider: PROBIOTIC ACIDOPHILUS 1.5 mg (250 MILLION CE MISC (17 sources) Start: 11-01-2017 End: 11-01-2017 PROBIOTIC ACIDOPHILUS 1.5 mg (250 MILLION CE MISC 11/01/2017 - 11/01/2017 Provider: PROBIOTIC ACIDOPHILUS 1.5 mg (250 MILLION CE MISC (5 sources) Start: 11-01-2017 End: 05-20-2020 PROBIOTIC ACIDOPHILUS 1.5 mg (250 MILLION CE MISC 11/01/2017 - 05/20/2020 Provider: PROBIOTIC ACIDOPHILUS 1.5 mg (250MILLION CE MISC (4 sources) Start: 11-01-2017 End: 11-01-2017 PROBIOTIC ACIDOPHILUS 1.5 mg (250MILLION CE MISC 11/01/2017 - 11/01/2017 Provider: PROBIOTIC ACIDOPHILUS 1.5 mg (250MILLION CE MISC (3 sources) Start: 11-01-2017 End: 11-01-2017 PROBIOTIC ACIDOPHILUS 1.5 mg (250MILLION CE MISC 11/01/2017 - 11/01/2017 Provider: PROBIOTIC-10 (WITH INULIN) 1 0 billion cell -100 MG MISC (17 sources) Start: 06-03-2018 End: 06-03-2018 PROBIOTIC-10 (WITH INULIN) 1 0 billion cell -100 MG MISC 06/03/2018 - 06/03/2018 Provider: PROBIOTIC-10 (WITH INULIN) 1 0 billion cell -100 MG MISC (5 sources) Start: 06-03-2018 End: 05-20-2020 PROBIOTIC-10 (WITH INULIN) 1 0 billion cell -100 MG MISC 06/03/2018 - 05/20/2020 Provider: PROBIOTIC-10 (WITH INULIN) 1 0 billion cell-100 MG MISC (4 sources) Start: 06-03-2018 End: 06-03-2018 PROBIOTIC-10 (WITH INULIN) 1 0 billion cell-100 MG MISC 06/03/2018 - 06/03/2018 Provider: PROBIOTIC-10 (WITH INULIN) 1 0 billion cell-100 MG MISC (3 sources) Start: 06-03-2018 End: 06-03-2018 PROBIOTIC-10 (WITH INULIN) 1 0 billion cell-100 MG MISC 06/03/2018 - 06/03/2018 Provider: Probiotic-10 Oral Capsule (13 sources) Start: 02-20-2019 End: 11-26-2020 Probiotic-10 Oral Capsule 02/20/2019 - 11/26/2020 Provider: Cindy Lopes CNP Start: 02-20-2019 Probiotic-10 O ral Capsule 02/20/2019 Provider: Cindy Lopes CNP Start: 07-21-2018 End: 10-20-2019 Probiotic-10 Oral Capsule - 10/20/2019 Provider: Start: 07-21-2018 Probiotic-10 O ral Capsule 07/21/2018 Provider: 12 hr pseudoePHEDrine hydrochloride 120 mg extended release oral tablet (2 sources) alpha-Adrenergic Agonist Start: 10-02-2015 End: 08-10-2016 take 1 tablet by mouth every twelve hours as needed Sudafed 12 Hour 120 mg oral tablet extended release 10/02/2015 08/10/2016 take 1 tablet (120 mg) by oral route every 12 hours as needed SUDAFED 12 HOUR 120 MG MISC (20 sources) Start: 10-02-2015 End: 10-02-2015 SUDAFED 12 HOUR 120 MG MISC 10/02/2015 - 10/02/2015 Provider: Start: 07-16-2015 End: 07-16-2015 SUDAFED 12 HOUR 120 MG MISC 07/16/2015 - 07/16/2015 Provider: SUDAFED 12 HOUR 120 MG MISC (10 sources) Start: 10-02-2015 End: 05-20-2020 SUDAFED 12 HOUR 120 MG MISC 10/02/2015 - 05/20/2020 Provider: Start: 07-16-2015 End: 05-20-2020 SUDAFED 12 HOUR 120 MG MISC 07/16/2015 - 05/20/2020 Provider: SUDAFED 12 HOUR 120MG MISC (8 sources) Start: 10-02-2015 End: 10-02-2015 SUDAFED 12 HOUR 120MG MISC 10/02/2015 - 10/02/2015 Provider: Start: 07-16-2015 End: 07-16-2015 SUDAFED 12 HOUR 120MG MISC 0 07/16/2015 - 07/16/2015 Provider: SUDAFED 12 HOUR 120MG MISC (6 sources) Start: 10-02-2015 End: 10-02-2015 SUDAFED 12 HOUR 120MG MISC 10/02/2015 - 10/02/2015 Provider: Start: 07-16-2015 End: 07-16-2015 SUDAFED 12 HOUR 120MG MISC 0 07/16/2015 - 07/16/2015 Provider: sulfamethoxazole 800 mg / trimethoprim 160 mg oral tablet (20 sources) Dihydrofolate Reductase Inhibitor Antibacterial, Sulfonamide Antimicrobial Start: 09-09-2016 End: 09-16-2016 take 1 tablet by mouth every twelve hours Bactrim DS 800-160 mg oral tablet 09/09/2016 09/16/2016 take 1 tablet by oral route every 12 hours for 7 days Start: 11-06-2014 End: 05-20-2020 Bactrim DS 800-160MG OR TABS 09/09/2016 - 09/09/2016 Provider: Start: 11-06-2014 End: 12-19-2014 take 1 tablet by mouth every twelve hours Bactrim DS 800-160 mg oral tablet 11/06/2014 12/19/2014 take 1 tablet by oral route every 12 hours completed SYMBICORT 160-4.5 MCG/ACTUAT MISC (17 sources) Start: 07-16-2018 End: 07-16-2018 SYMBICORT 160-4.5 MCG/ACTUAT MISC 07/16/2018 - 07/16/2018 Provider: SYMBICORT 160-4.5 MCG/ACTUAT MISC (5 sources) Start: 07-16-2018 End: 05-20-2020 SYMBICORT 160-4.5 MCG/ACTUAT MISC 07/16/2018 - 05/20/2020 Provider: TUSSIN DM 10-100 MG/5 ML MISC (17 sources) Start: 10-01-2016 End: 10-01-2016 TUSSIN DM 10-100 MG/5 ML MISC 10/01/2016 - 10/01/2016 Provider: TUSSIN DM 10-100 MG/5 ML MISC (5 sources) Start: 10-01-2016 End: 05-20-2020 TUSSIN DM 10-100 MG/5 ML MISC 10/01/2016 - 05/20/2020 Provider: TUSSIN DM 10-100MG/5 ML MISC (4 sources) Start: 10-01-2016 End: 10-01-2016 TUSSIN DM 10-100MG/5 ML MISC 10/01/2016 - 10/01/2016 Provider: TUSSIN DM 10-100MG/5 ML MISC (3 sources) Start: 10-01-2016 End: 10-01-2016 TUSSIN DM 10-100MG/5 ML MISC 10/01/2016 - 10/01/2016 Provider: 0.65 ml varicella-zoster virus vaccine live (oka-merck) strain [id number] unt/ml injection (2 sources) Start: 05-09-2015 End: 05-10-2015 take 0.65 mL by subcutaneous injection once Zostavax (PF) 19,400 unit/0.65 mL subcutaneous suspension for reconstitution 05/09/2015 05/10/2015 inject 0.65 milliliter by subcutaneous route once VENTOLIN HFA 90 MCG/ACTUAT MISC (17 sources) Start: 07-16-2018 End: 07-16-2018 VENTOLIN HFA 90 MCG/ACTUAT MISC 07/16/2018 - 07/16/2018 Provider: VENTOLIN HFA 90 MCG/ACTUAT MISC (5 sources) Start: 07-16-2018 End: 05-20-2020 VENTOLIN HFA 90 MCG/ACTUAT MISC 07/16/2018 - 05/20/2020 Provider: vitamin B complex (2 sources) Start: 01-20-2018 take 1 tablet by jason th once daily in the morning vitamin B complex oral tablet 01/20/2018 take 1 tablet by oral route once a day (in the morning) Start: 04-14-2017 take 1 tablet by jason th once daily in the morning vitamin B complex oral tablet 04/14/2017 take 1 tablet by oral route once a day (in the morning) VITAMIN B COMPLEX MISC (20 sources) Start: 01-20-2018 End: 01-20-2018 VITAMIN B COMPLEX MISC 01/20 - 01/20/2018 Provider: Start: 04-14-2017 End: 04-14-2017 VITAMIN B COMPLEX MISC 04/14 - 04/14/2017 Provider: VITAMIN B COMPLEX MISC (20 sources) Start: 01-20-2018 End: 05-20-2020 VITAMIN B COMPLEX MISC 01/20 - 05/20/2020 Provider: Start: 01-20-2018 End: 01-20-2018 VITAMIN B COMPLEX MISC 01/20 - 01/20/2018 Provider: Start: 04-14-2017 End: 05-20-2020 VITAMIN B COMPLEX MISC 04/14 - 05/20/2020 Provider: Start: 04-14-2017 End: 04-14-2017 VITAMIN B COMPLEX MISC 04/14 - 04/14/2017 Provider: Vitamin B Complex Oral Table t (20 sources) Start: 07-21-2018 End: 09-12-2019 Vitamin B Complex Oral Table t 07/21/2018 - 09/12/2019 Provider: Start: 07-21-2018 Vitamin B Comp aliyah Oral Tablet 07/21/2018 Provider: Vitamin B Complex Oral Table t (8 sources) Start: 07-21-2018 End: 09-12-2019 Vitamin B Complex Oral Table t 07/21/2018 - 09/12/2019 Provider: Start: 07-21-2018 Vitamin B Comp aliyah Oral Tablet 07/21/2018 Provider: VITAMIN D3 5,000 unit MISC (20 sources) Start: 01-20-2018 End: 01-20-2018 VITAMIN D3 5,000 unit MISC 01/20/2018 - 01/20/2018 Provider: Start: 09-03-2017 End: 09-03-2017 VITAMIN D3 5,000 unit MISC 0 09/03/2017 - 09/03/2017 Provider: Start: 09-21-2016 End: 09-21-2016 VITAMIN D3 5,000 unit MISC 0 09/21/2016 - 09/21/2016 Provider: Start: 05-09-2015 End: 05-09-2015 VITAMIN D3 5,000 unit MISC 1 07/09/2014 - 05/09/2015 Provider: VITAMIN D3 5,000 unit MISC (20 sources) Start: 01-20-2018 End: 05-20-2020 VITAMIN D3 5,000 unit MISC 01/20/2018 - 05/20/2020 Provider: Start: 01-20-2018 End: 01-20-2018 VITAMIN D3 5,000 unit MISC 0 01/20/2018 - 01/20/2018 Provider: Start: 09-03-2017 End: 05-20-2020 VITAMIN D3 5,000 unit MISC 0 09/03/2017 - 05/20/2020 Provider: Start: 09-03-2017 End: 09-03-2017 VITAMIN D3 5,000 unit MISC 0 09/03/2017 - 09/03/2017 Provider: Start: 09-21-2016 End: 05-20-2020 VITAMIN D3 5,000 unit MISC 0 09/21/2016 - 05/20/2020 Provider: Start: 09-21-2016 End: 09-21-2016 VITAMIN D3 5,000 unit MISC 0 09/21/2016 - 09/21/2016 Provider: Start: 05-09-2015 End: 05-20-2020 VITAMIN D3 5,000 unit MISC 1 07/09/2014 - 05/20/2020 Provider: Start: 05-09-2015 End: 05-09-2015 VITAMIN D3 5,000 unit MISC 1 07/09/2014 - 05/09/2015 Provider: Vitamin D3 Complete (2 sources) Start: 09-01-2017 End: 10-21-2017 take 1 tablet by mouth once daily in the morning Vitamin D3 Complete 18 mg iron-800 mcg-150 mg oral tablet 09/01/2017 10/21/2017 take 1 tablet by oral route once a day (in the morning) VITAMIN D3 COMPLETE 18 mg iron-800 MCG-150 MG MISC (20 sources) Start: 09-01-2017 End: 09-01-2017 VITAMIN D3 COMPLETE 18 mg iron-800 MCG-150 MG MISC 09/01/2017 - 09/01/2017 Provider: Start: 04-14-2017 End: 04-14-2017 VITAMIN D3 COMPLETE 18 mg ir on-800 MCG-150 MG MISC 04/14/2017 - 04/14/2017 Provider: VITAMIN D3 COMPLETE 18 mg iron-800 MCG-150 MG MISC (10 sources) Start: 09-01-2017 End: 05-20-2020 VITAMIN D3 COMPLETE 18 mg iron-800 MCG-150 MG MISC 09/01/2017 - 05/20/2020 Provider: Start: 04-14-2017 End: 05-20-2020 VITAMIN D3 COMPLETE 18 mg ir on-800 MCG-150 MG MISC 04/14/2017 - 05/20/2020 Provider: VITAMIN D3 COMPLETE 18 mg [id number] MG MISC (8 sources) Start: 09-01-2017 End: 09-01-2017 VITAMIN D3 COMPLETE 18 mg [id number] MG MISC 09/01/2017 - 09/01/2017 Provider: Start: 04-14-2017 End: 04-14-2017 VITAMIN D3 COMPLETE 18 mg ir [id number] MG MISC 04/14/2017 - 04/14/2017 Provider: VITAMIN D3 COMPLETE 18 mg [id number] MG MISC (6 sources) Start: 09-01-2017 End: 09-01-2017 VITAMIN D3 COMPLETE 18 mg [id number] MG MISC 09/01/2017 - 09/01/2017 Provider: Start: 04-14-2017 End: 04-14-2017 VITAMIN D3 COMPLETE 18 mg ir [id number] MG MISC 04/14/2017 - 04/14/2017 Provider: Problems Active Problems Problem Classification Problem Date Documented Da te Episodic/Chronic Abdominal pain (18 sources) Abdominal pain; Translations: [Unspecified abdominal pain] 09-26-2018 Episodic Adjustment disorders (9 sources) Adjustment disorder; Translations: [Adjustment Disorder] Onset: 9 Chronic Anxiety disorders (20 sources) Anxiety state, unspecified; Translations: [Generalized anxiety disorder] Onset: 5 Chronic Calculus of urinary tract (1 source) Kidney stone; Translations: [Calculus of kidney] 03-22-2015 Episodic Chronic obstructive pulmonary disease and bronchiectasis (20 sources) Chronic airway obstruction, not elsewhere classified; Translations: [Chronic obstructive lung disease] Onset: 7 Chronic Disorders of lipid metabolism (10 sources) Hyperlipidemia; Translations: [Hyperlipidemia, unspecified] Chronic Esophageal disorders (20 sources) Gastroesophageal reflux disease; Translations: [Esophageal reflux] Onset: 7 Chronic Essential hypertension (4 sources) Unspecified essential hypertension Onset: 7 Chronic Fluid and electrolyte disorders (20 sources) Dehydration; Translations: [Dehydration] Onset: 4 09-30-2018 Episodic Heart valve disorders (10 sources) Aortic valve regurgitation; Translations: [Nonrheumatic aortic (valve) insufficiency] Chronic Influenza (1 source) Influenza due to other identified influenza virus with other respiratory manifestations; Translations: [Influenza due to other identified influenza virus with other respiratory manifestations] Onset: 5 Episodic Intestinal infection (20 sources) Viral gastroenteritis due to Eleva-like agent; Translations: [Enteritis due to Norovirus] Onset: 9 09-30-2018 Episodic Mood disorders (20 sources) Depressive disorder, not elsewhere classified; Translations: [Depressive disorder] Onset: 5 Chronic Nausea and vomiting (2 sources) Nausea, vomiting and diarrhea; Translations: [Nausea with vomiting, unspecified] Onset: 5 07-28-2023 Episodic Noninfectious gastroenteritis (18 sources) Enteritis of small intestine; Translations: [Noninfective gastroenteritis and colitis, unspecified] 09-26-2018 Episodic Nutritional deficiencies (20 sources) Unspecified vitamin D deficiency; Translations: [Vitamin D deficiency] Onset: 5 Chronic Other connective tissue disease (18 sources) Fibromyalgia; Translations: [Fibromyalgia] 10-14-2022 Episodic Other connective tissue disease (4 sources) Fibromyalgia; Translations: [Myalgia and myositis, unspecified] Onset: 5 Episodic Other gastrointestinal disorders (6 sources) Irritable bowel syndrome; Translations: [Irritable bowel syndrome] Onset: 7 Chronic Other gastrointestinal disorders (15 sources) Irritable bowel syndrome without diarrhea; Translations: [Irritable bowel syndrome without diarrhea] Onset: 5 Chronic Other gastrointestinal disorders (5 sources) Diarrhea; Translations: [Slow transit constipation] Onset: 7 Episodic Other lower respiratory disease (20 sources) Cough; Translations: [Other respiratory abnormalities] Onset: 5 Episodic Other lower respiratory disease (18 sources) Nodule of lung; Translations: [Solitary pulmonary nodule] 09-30-2018 Episodic Other nervous system disorders (20 sources) Other chronic pain; Translations: [Chronic pain syndrome] Onset: 5 Chronic Other nervous system disorders (1 source) Chronic pain syndrome; Translations: [Chronic pain syndrome] Onset: 6 10-11-2015 Chronic Other nutritional; endocrine; and metabolic disorders (17 sources) Morbid obesity; Translations: [Morbid obesity] Onset: 5 Chronic Other nutritional; endocrine; and metabolic disorders (20 sources) Body mass index (BMI) 39.0-39.9, adult; Translations: [Body mass index (BMI) 39.0-39.9, adult] Onset: 8 Chronic Other nutritional; endocrine; and metabolic disorders (7 sources) Morbid (severe) obesity due to excess calories; Translations: [Morbid (severe) obesity due to excess calories] Onset: 5 Chronic Other nutritional; endocrine; and metabolic disorders (20 sources) Body mass index (BMI) 40.0-44.9, adult; Translations: [Finding of body mass index] Onset: 7 Chronic Other nutritional; endocrine; and metabolic disorders (20 sources) Simple obesity ; Translations: [Obesity, unspecified] Onset: 0 Chronic Other nutritional; endocrine; and metabolic disorders (1 source) Obesity, unspecified; Translations: [Obesity, unspecified] Onset: 4 Chronic Other skin disorders (13 sources) Senile hyperkeratosis; Translations: [Other seborrheic keratosis] Onset: 0 Episodic Other skin disorders (1 source) Hypertrophic scar; Translations: [Keloid scar] Onset: 1 Episodic Other upper respiratory disease (8 sources) Allergic rhinitis; Translations: [Allergic rhinitis, cause unspecified] Onset: 9 Chronic Other upper respiratory infections (20 sources) Chronic frontal sinusitis; Translations: [Chronic frontal sinusitis] Onset: 6 Chronic Other upper respiratory infections (20 sources) Acute sinusitis, unspecified; Translations: [Acute pharyngitis] Onset: 5 Episodic Personality disorders (4 sources) Unspecified personality disorder Onset: 5 Chronic Pneumonia (1 source) Pneumonia Onset: 7 Respiratory failure; insufficiency; arrest (adult) (1 source) Dependence on supplemental oxygen; Translations: [Dependence on supplemental oxygen] Onset: 5 Chronic Substance-related disorders (20 sources) Tobacco use disorder; Translations: [Nicotine dependence] Onset: 6 Chronic Substance-related disorders (20 sources) Tobacco dependence caused by cigarettes; Translations: [Nicotine Dependence Cigarettes Uncomplicated] Onset: 6 Unclassified (20 sources) Chronic pain; Translations: [Body Mass Index 40.0-44.9, adult] Onset: 5 Chronic Unclassified (4 sources) Other pain disorders related to psychological factors Onset: 5 Chronic Unclassified (20 sources) Special screening for malignant neoplasms of colon; Translations: [Lung mass] Onset: 5 Episodic Unclassified (1 source) Noninfective gastroenteritis and colitis, unspecified / K52.9(ICD-10) Onset: 7 Unclassified (1 source) Hematuria, unspecified / R31.9(ICD-10) Onset: 7 Unclassified (1 source) Enterocolitis due to Clostridium difficile / A04.7(ICD-10) Onset: 7 Unclassified (1 source) Unspecified abdominal pain / R10.9(ICD-10) Onset: 7 Unclassified (1 source) Other chronic pain / G89.29(ICD-10) Onset: 7 Unclassified (1 source) Solitary pulmonary nodule / R91.1(ICD-10) Onset: 7 Unclassified (4 sources) Screening status; Translations: [Colon cancer screening] Onset: 7 Unclassified (20 sources) Finding of body mass index; Translations: [Body Mass Index] Onset: 7 Urinary tract infections (20 sources) Acute cystitis; Translations: [Acute cystitis] Onset: 5 Episodic Past or Other Problems Problem Classification Problem Date Documented Da te Episodic/Chronic Acute bronchitis (9 sources) Bronchiolitis; Translations: [Acute bronchiolitis due to other infectious organisms] Onset: 07-22-2018 Episodic Administrative/social admission (2 sources) Issue of repeat prescriptions Onset: 10-19-2014 Episodic Allergic reactions (20 sources) Diarrhea; Translations: [Other allergy, other than to medicinal agents] Onset: 10-19-2014 Episodic Allergic reactions (20 sources) Encounter for desensitization to allergens; Translations: [Encounter for desensitization to allergens] Onset: 12-12-2018 Bacterial infection; unspecified site (6 sources) Upper respiratory infection; Translations: [Acute upper respiratory infections of unspecified site] Onset: 07-22-2018 Episodic Diabetes mellitus without complication (17 sources) Impaired glucose tolerance; Translations: [Prediabetes] Onset: 08-18-2019 Episodic Fever of unknown origin (9 sources) Fever, unspecified; Translations: [Fever symptoms] Onset: 07-22-2018 Episodic Genitourinary symptoms and ill-defined conditions (20 sources) Hematuria, unspecified; Translations: [Blood in urine] Onset: 09-09-2016 Episodic Immunizations and screening for infectious disease (20 sources) Other specified vaccinations against streptococcus pneumoniae [pneumococcus]; Translations: [Need for prophylactic vaccination and inoculation against influenza] Onset: 05-09-2015 Episodic Malaise and fatigue (20 sources) Other malaise and fatigue; Translations: [Fatigue] Onset: 01-22-2017 Episodic Medical examination/evaluation (20 sources) Dental examination Onset: 12-27-2014 Episodic Mood disorders (20 sources) Major depressive disorder, single episode, unspecified; Translations: [Major depressive disorder, single episode, unspecified] Onset: 10-30-2014 Nonmalignant breast conditions (14 sources) Lump or mass in breast; Translations: [Breast lump] Onset: 08-10-2016 Episodic Nonmalignant breast conditions (15 sources) Unspecified lump in unspecified breast; Translations: [Unspecified lump in unspecified breast] Onset: 08-10-2016 Nutritional deficiencies (5 sources) Magnesium deficiency; Translations: [Mineral deficiency, not elsewhere classified] Onset: 03-05-2020 Episodic Other and unspecified benign neoplasm (4 sources) Benign neoplasm of skin of upper limb, including shoulder; Translations: [Lipoma, unspecified site] Onset: 11-04-2016 Episodic Other circulatory disease (8 sources) Elevated blood-pressure reading, without diagnosis of hypertension; Translations: [Prehypertension] Onset: 08-11-2018 Episodic Other connective tissue disease (20 sources) Fibromyositis; Translations: [Pain in limb] Onset: 10-19-2014 Episodic Other connective tissue disease (20 sources) Pain in leg, unspecified; Translations: [Pain in leg, unspecified] Onset: 11-11-2016 Episodic Other gastrointestinal disorders (20 sources) Diarrhea, unspecified; Translations: [Diarrhea, unspecified] Onset: 01-22-2017 Episodic Other gastrointestinal disorders (15 sources) Slow transit constipation; Translations: [Slow transit constipation] Onset: 01-20-2018 Episodic Other lower respiratory disease (15 sources) Solitary pulmonary nodule; Translations: [Solitary pulmonary nodule] Onset: 12-14-2016 Episodic Other lower respiratory disease (20 sources) Other forms of dyspnea; Translations: [Other forms of dyspnea] Onset: 10-11-2016 Episodic Other lower respiratory disease (20 sources) Shortness of breath; Translations: [Shortness of breath] Onset: 10-11-2016 Episodic Other lower respiratory disease (9 sources) Cough; Translations: [Cough] Onset: 07-22-2018 Episodic Other nervous system disorders (9 sources) Chronic pain syndrome; Translations: [Chronic Pain Syndrome] Onset: 08-18-2019 Episodic Other non-traumatic joint disorders (12 sources) Pain in joint, lower leg; Translations: [Knee pain] Onset: 01-22-2017 Episodic Other non-traumatic joint disorders (20 sources) Pain in right knee; Translations: [Pain in right knee] Onset: 01-22-2017 Episodic Other skin disorders (8 sources) Unspecified hypertrophic and atrophic conditions of skin; Translations: [Other seborrheic keratosis] Onset: 11-04-2016 Episodic Other skin disorders (12 sources) Epidermoid cyst; Translations: [Sebaceous cyst] Onset: 01-23-2020 Episodic Other upper respiratory disease (6 sources) Other disease of nasal cavity and sinuses Onset: 11-02-2015 Episodic Other upper respiratory disease (1 source) Hypertrophy of nasal turbinates; Translations: [Hypertrophy of nasal turbinates] Onset: 09-09-2015 Resolved: 10-21-2015 10-21-2015 Episodic Other upper respiratory disease (1 source) Deviated nasal septum; Translations: [Deviated nasal septum] Onset: 10-11-2015 Resolved: 10-21-2015 10-21-2015 Episodic Pneumonia (20 sources) Pneumonia, unspecified organism; Translations: [Pneumonia, organism unspecified] Onset: 12-30-2016 Episodic Residual codes; unclassified (7 sources) Sleep disorder, unspecified; Translations: [Sleep disorder, unspecified] Onset: 10-30-2014 Episodic Residual codes; unclassified (20 sources) Edema, unspecified; Translations: [Edema, unspecified] Onset: 10-01-2016 Episodic Residual codes; unclassified (20 sources) Sleep disorder; Translations: [Sleep disorder, unspecified] Onset: 10-30-2014 Episodic Unclassified (20 sources) Edema; Translations: [Sleep disorder] Onset: 10-30-2014 Episodic Unclassified (13 sources) Dast - 10 Score; Translations: [Dast - 10 Score] Onset: 10-06-2018 Unclassified (13 sources) Questionnaires Phq-9 Total Score; Translations: [Questionnaires Phq-9 Total Score] Onset: 10-06-2018 Unclassified (8 sources) Patient status finding (finding); Translations: [Assessment [use For S.o.a.p. Note Free Text]] Onset: 08-11-2018 Viral infection (20 sources) Viral disease; Translations: [Verruca vulgaris] Onset: 10-06-2018 Episodic Results Test Name Value Interpretation Reference Range Facility Urine Cultureon 08-09-2024 [facility] Mixed Gram Positive Organisms [place] Count 50,000-80,000 [facility] Mixed contaminants. Submit a new specimen if indicated. Normal [facility] Comment on above: Performed By: #### M 100.2200 #### [facility] [address] [place], [address] Basic Metabolic Profile (BMP )on 08-08-2024 BUN/CRE 18.3 RATIO Normal 10-20 [facility] Comment on above: Performed By: #### L 500.2500, L100.0100 #### [facility] [address] [place], [address] CA,Total 8.5 mg/dL Normal 8.5-10.1 [facility] Comment on above: Performed By: #### L 500.2500, L100.0100 #### [facility] [address] [place], [address] Chloride [Moles/Vol] 102 mmol/L Normal 98-107 [facility] Comment on above: Performed By: #### L 500.2500, L100.0100 #### [facility] [address] [place], [address] CO2 [Moles/Vol] 28.0 mmol/L Normal 21.0-32.0 [facility] Comment on above: Performed By: #### L 500.2500, L100.0100 #### [facility] [address] [place], [address] Creatinine [Mass/Vol] 0.77 mg/dL Normal 0.55-1.02 [facility] Comment on above: Result Comment: The validity of the calculated GFR GFRAA in patients over 70 years has not been determined. Clinical correlation is essential. Performed By: #### L 500.2500, L100.0100 #### [facility] [address] [place], [address] ECRCL 77.29 ml/min Normal [facility] Comment on above: Performed By: #### L 500.2500, L100.0100 #### [facility] [address] [place], [address] EST GFR - AA 97 mL/min Normal >60 [facility] Comment on above: Result Comment: Afri can Citizen Of [place] GFR Calc Performed By: #### L 500.2500, L100.0100 #### [facility] [address] [place], [address] GAP 6 Normal 5-15 [facility] Comment on above: Performed By: #### L 500.2500, L100.0100 #### [facility] [address] [place], [address] GFR/1.73 sq M.predicted among non-blacks MDRD (S/P/Bld) [Vol rate/Area] 80 mL/min/{1.73_m2} Normal >60 [facility] Comment on above: Result Comment: Non- GFR Calc Performed By: #### L 500.2500, L100.0100 #### [facility] [address] [place], [address] Glucose [Mass/Vol] 85 mg/dL Normal 74-106 [facility] Comment on above: Performed By: #### L 500.2500, L100.0100 #### [facility] [address] [place], [address] Potassium [Moles/Vol] 3.6 mmol/L Normal 3.5-5.1 [facility] Comment on above: Performed By: #### L 500.2500, L100.0100 #### [facility] [address] [place], [address] Sodium [Moles/Vol] 136 mmol/L Normal 136-145 [facility] Comment on above: Performed By: #### L 500.2500, L100.0100 #### [facility] [address] [place], [address] Urea nitrogen [Mass/Vol] 14 mg/dL Normal 7-18 [facility] Comment on above: Performed By: #### L 500.2500, L100.0100 #### [facility] [address] [place], [address] CBC W/Diff, Automatedon 07-22 Absolute Lymph 2.24 X10 3/uL Normal 0.83-4.51 [facility] Comment on above: Performed By: #### L 500.2500, L100.0100 #### [facility] [address] [place], [address] Absolute Neut 2.2 X10 3/uL Normal 2.0-7.7 [facility] Comment on above: Performed By: #### L 500.2500, L100.0100 #### [facility] [address] [place], [address] Basophils/100 WBC (Bld) 0.5 % Normal 0-1 [facility] Comment on above: Performed By: #### L 500.2500, L100.0100 #### [facility] [address] [place], [address] Eosinophils/100 WBC (Bld) 0.2 % Normal 0-5 [facility] Comment on above: Performed By: #### L 500.2500, L100.0100 #### [facility] [address] [place], [address] Erythrocyte distribution width (RBC) [Ratio] 12.5 % Normal 11.6-14.6 [facility] Comment on above: Performed By: #### L 500.2500, L100.0100 #### [facility] [address] [place], [address] Hematocrit (Bld) [Volume fraction] 41.4 % Normal 37-47 [facility] Comment on above: Performed By: #### L 500.2500, L100.0100 #### [facility] [address] [place], [address] Hemoglobin (Bld) [Mass/Vol] 13.8 g/dL Normal 12.0-15.0 [facility] Comment on above: Performed By: #### L 500.2500, L100.0100 #### [facility] [address] [place], [address] IG% 0.200 Normal 0.0-0.9 [facility] Comment on above: Result Comment: IG% - Immature Granulocytes (promyelocytes, myelocytes and metamyelocytes) > 1% indicates that a LEFT SHIFT is Present. Performed By: #### L 500.2500, L100.0100 #### [facility] [address] [place], [address] Lymphocytes/100 WBC (Bld) 40.1 % Normal 19-41 [facility] Comment on above: Performed By: #### L 500.2500, L100.0100 #### [facility] [address] [place], [address] MCH (RBC) [Entitic mass] 30.0 pg Normal 27.0-32.0 [facility] Comment on above: Performed By: #### L 500.2500, L100.0100 #### [facility] [address] [place], [address] MCHC (RBC) [Mass/Vol] 33.3 g/dL Normal 32-36 [facility] Comment on above: Performed By: #### L 500.2500, L100.0100 #### [facility] [address] [place], [address] MCV (RBC) [Entitic vol] 90.0 fL Normal 81-99 [facility] Comment on above: Performed By: #### L 500.2500, L100.0100 #### [facility] [address] [place], [address] Monocytes/100 WBC (Bld) 20.1 % High 0-10 [facility] Comment on above: Performed By: #### L 500.2500, L100.0100 #### [facility] [address] [place], [address] Neutrophils/100 WBC (Bld) 38.9 % Low 47-70 [facility] Comment on above: Performed By: #### L 500.2500, L100.0100 #### [facility] [address] [place], [address] Nucleated RBC (Bld) [#/Vol] 0 10*3/uL Normal 0-5 [facility] Comment on above: Performed By: #### L 500.2500, L100.0100 #### [facility] [address] [place], [address] Platelet mean volume (Bld) [Entitic vol] 10.0 fL Normal 6.2-12.0 [facility] Comment on above: Performed By: #### L 500.2500, L100.0100 #### [facility] [address] [place], [address] Platelets (Bld) [#/Vol] 248 10*3/uL Normal 150-450 [facility] Comment on above: Performed By: #### L 500.2500, L100.0100 #### [facility] [address] [place], [address] RBC (Bld) [#/Vol] 4.60 10*6/uL Normal 4.2-5.4 [facility] Comment on above: Performed By: #### L 500.2500, L100.0100 #### [facility] [address] [place], [address] RDW SD 41.1 fl Normal 35.1-43.9 [facility] Comment on above: Performed By: #### L 500.2500, L100.0100 #### [facility] [address] [place], [address] WBC (Bld) [#/Vol] 5.6 10*3/uL Normal 4.4-11.0 [facility] Comment on above: Performed By: #### L 500.2500, L100.0100 #### [facility] [address] [place], [address] Discharge Instructionon 07-22 Discharge Instruction [facility] Medical Records Department [address] [place] [address] Instructions for Home/Discharge Instructions 08/08/24 1054 MR#: [id number] Acct: [id number] Name: WILBERT JOHNSON Rep #: [id number] : 1960 64 From: Michael Raymundo DO PCP: Dr. Mayra Cortez MD Status:ADM BRYANNA Discharge Instructions Diet Discharge Diet: No restrictions DC O2, CPAP, BIPAP needs Home O2 Discharge instructions: No Dressing / Incision Discharge Activity: No Restrictions Follow Up Care Test Results: Test results from this visit will be discussed in further detail at your follow-up appointment, if applicable. Discharge Plan Admission Admit Date/Time: 08/07/24 21:38 Primary Reason for Your Visit: weakness Attending Provider: Michael Raymundo Primary Care Provider: Mayra Cortez Consulting Providers: Julio Blake Additional Instructions / Restrictions: Take 3 more days of Tamiflu and Keflex for your flu infection and UTI. Follow-up with your primary care doctor as needed. Discharge Orders/Prescriptions Prescriptions: New oseltamivir 75 mg Capsule 75 mg PO BID 3 Days Qty: 6 0RF cephalexin 500 mg capsule 500 mg PO BID 3 Days Qty: 6 0RF Continued fexofenadine [Allergy Relief (fexofenadine)] 180 mg tablet 180 mg PO DAILY folic acid 1 mg tablet 1 mg PO DAILY tizanidine 4 mg tablet 4 mg PO TID PRN (Reason: muscle spasticity) vitamin B complex Capsule 1 cap PO DAILY Patient Comments: [NO ORIGINAL SIG] fluoxetine 40 mg capsule 40 mg PO DAILY fluoxetine 20 mg capsule 20 mg PO QHS Breztri Aerosphere 160-9-4.8 mcg/actuation HFA aerosol inhaler 2 inh INHALATION BID Patient Comments: [NO ORIGINAL SIG] fluticasone propionate 50 mcg/actuation spray,suspension 1 spray INTRANASAL DAILY Patient Comments: [NO ORIGINAL SIG] gabapentin 800 mg tablet 800 mg PO 4X/DAY omeprazole 40 mg capsule,delayed release(DR/EC) 40 mg PO DAILY Rx Instructions: TAKE BEFORE BREAKFAST potassium chloride 20 mEq tablet,ER particles/crystals 20 meq PO DAILY roflumilast 500 mcg tablet 500 mcg PO DAILY sucralfate 1 gram tablet 1 g PO DAILY Patient Comments: [NO ORIGINAL SIG] Saccharomyces boulardii [Probiotic (S.boulardii)] 250 mg capsule 250 mg PO DAILY cholecalciferol (vitamin D3) 125 mcg (5,000 unit) capsule 125 mcg PO DAILY Referrals / Follow Up: Mayra Cortez MD [Primary Care Provider] - Disposition Disposition (needs filled in before D/C Order can be placed): Home, Self Care 08/08/24 1608 Michael Raymundo DO CC: Dr. Julio Blake MD; Dr. Mayra Cortez MD Signed Normal [facility] CBC W/Diff, Automatedon 07-22 Absolute Lymph 1.24 X10 3/uL Normal 0.83-4.51 [facility] Comment on above: Performed By: #### L 100.0100 #### [facility] [address] [place], [address] Absolute Neut 4.2 X10 3/uL Normal 2.0-7.7 [facility] Comment on above: Performed By: #### L 100.0100 #### [facility] [address] [place], [address] Basophils/100 WBC (Bld) 0.3 % Normal 0-1 [facility] Comment on above: Performed By: #### L 100.0100 #### [facility] [address] [place], [address] Eosinophils/100 WBC (Bld) 0.0 % Normal 0-5 [facility] Comment on above: Performed By: #### L 100.0100 #### [facility] [address] [place], [address] Erythrocyte distribution width (RBC) [Ratio] 12.3 % Normal 11.6-14.6 [facility] Comment on above: Performed By: #### L 100.0100 #### [facility] [address] [place], [address] Hematocrit (Bld) [Volume fraction] 44.4 % Normal 37-47 [facility] Comment on above: Performed By: #### L 100.0100 #### [facility] [address] [place], [address] Hemoglobin (Bld) [Mass/Vol] 14.5 g/dL Normal 12.0-15.0 [facility] Comment on above: Performed By: #### L 100.0100 #### [facility] [address] [place], [address] IG% 0.300 Normal 0.0-0.9 [facility] Comment on above: Result Comment: IG% - Immature Granulocytes (promyelocytes, myelocytes and metamyelocytes) > 1% indicates that a LEFT SHIFT is Present. Performed By: #### L 100.0100 #### [facility] [address] [place], [address] Lymphocytes/100 WBC (Bld) 18.4 % Low 19-41 [facility] Comment on above: Performed By: #### L 100.0100 #### [facility] [address] [place], [address] MCH (RBC) [Entitic mass] 29.3 pg Normal 27.0-32.0 [facility] Comment on above: Performed By: #### L 100.0100 #### [facility] [address] [place], [address] MCHC (RBC) [Mass/Vol] 32.7 g/dL Normal 32-36 [facility] Comment on above: Performed By: #### L 100.0100 #### [facility] [address] [place], [address] MCV (RBC) [Entitic vol] 89.7 fL Normal 81-99 [facility] Comment on above: Performed By: #### L 100.0100 #### [facility] [address] [place], [address] Monocytes/100 WBC (Bld) 18.2 % High 0-10 [facility] Comment on above: Performed By: #### L 100.0100 #### [facility] [address] [place], [address] Neutrophils/100 WBC (Bld) 62.8 % Normal 47-70 [facility] Comment on above: Performed By: #### L 100.0100 #### [facility] [address] [place], [address] Nucleated RBC (Bld) [#/Vol] 0 10*3/uL Normal 0-5 [facility] Comment on above: Performed By: #### L 100.0100 #### [facility] [address] [place], [address] Platelet mean volume (Bld) [Entitic vol] 9.9 fL Normal 6.2-12.0 [facility] Comment on above: Performed By: #### L 100.0100 #### [facility] [address] [place], [address] Platelets (Bld) [#/Vol] 259 10*3/uL Normal 150-450 [facility] Comment on above: Performed By: #### L 100.0100 #### [facility] [address] [place], [address] RBC (Bld) [#/Vol] 4.95 10*6/uL Normal 4.2-5.4 [facility] Comment on above: Performed By: #### L 100.0100 #### [facility] [address] [place], [address] RDW SD 40.3 fl Normal 35.1-43.9 [facility] Comment on above: Performed By: #### L 100.0100 #### [facility] [address] [place], [address] WBC (Bld) [#/Vol] 6.8 10*3/uL Normal 4.4-11.0 [facility] Comment on above: Performed By: #### L 100.0100 #### [facility] [address] [place], [address] Absolute Neut Normal 2.0-7.7 [facility] Comment on above: Result Comment: BECCA MACARIO, SPOKE WITH ION Performed By: #### L 501.3620, L501.5200, L500.4050, L100.0100 ####[facility] [address] [place], [address] HCT Normal 37-47 [facility] Comment on above: Result Comment: BECCA MACARIO SPOKE WITH ION Performed By: #### L 501.3620, L501.5200, L500.4050, L100.0100 ####[facility] [address] [place], [address] HGB Normal 12.0-15.0 [facility] Comment on above: Result Comment: CLOT ANNMARIE, SPOKE WITH ION Performed By: #### L 501.3620, L501.5200, L500.4050, L100.0100 ####[facility] [address] [place], [address] MCH Normal 27.0-32.0 [facility] Comment on above: Result Comment: CLOT ANNMARIE, SPOKE WITH ION Performed By: #### L 501.3620, L501.5200, L500.4050, L100.0100 ####[facility] [address] [place], [address] MCHC Normal 32-36 [facility] Comment on above: Result Comment: CLOT ANNMARIE, SPOKE WITH ION Performed By: #### L 501.3620, L501.5200, L500.4050, L100.0100 ####[facility] [address] [place], [address] MCV Normal 81-99 [facility] Comment on above: Result Comment: CLOT ANNMARIE, SPOKE WITH ION Performed By: #### L 501.3620, L501.5200, L500.4050, L100.0100 ####[facility] [address] [place], [address] NEUT% Normal 47-70 [facility] Comment on above: Result Comment: CLOT ANNMARIE, SPOKE WITH ION Performed By: #### L 501.3620, L501.5200, L500.4050, L100.0100 ####[facility] [address] [place], [address] PLT Normal 150-450 [facility] Comment on above: Result Comment: CLOT ANNMARIE, SPOKE WITH ION Performed By: #### L 501.3620, L501.5200, L500.4050, L100.0100 ####[facility] [address] [place], [address] RBC Normal 4.2-5.4 [facility] Comment on above: Result Comment: BECCA MACARIO, SPOKE WITH ION Performed By: #### L 501.3620, L501.5200, L500.4050, L100.0100 ####[facility] [address] [place], [address] RDW CV Normal 11.6-14.6 [facility] Comment on above: Result Comment: BECCA MACARIO, SPOKE WITH ION Performed By: #### L 501.3620, L501.5200, L500.4050, L100.0100 ####[facility] [address] [place], [address] RDW SD Normal 35.1-43.9 [facility] Comment on above: Result Comment: BECCA ANNMARIE, SPOKE WITH ION Performed By: #### L 501.3620, L501.5200, L500.4050, L100.0100 ####[facility] [address] [place], [address] WBC Normal 4.4-11.0 [facility] Comment on above: Result Comment: BECCA MACARIO, SPOKE WITH ION Performed By: #### L 501.3620, L501.5200, L500.4050, L100.0100 ####[facility] [address] [place], [address] CPK Total, Creatine Kinaseon 08-07-2024 CPK TOTAL 115 U/L Normal 26-192 [facility] Comment on above: Performed By: #### L 501.3620, L501.5200, L500.4050, L100.0100 #### [facility] [address] [place], [address] Chest PA and Lateralon 08-07 Chest PA and Lateral [facility] [address] [place] [address] Chest PA and Lateral MR#: [id number] Acct: [id number] Name: WILBERT JOHNSON Rep #: [id number] : 1960 F 64 From: Julio Shah i, DO PCP: Care Physician,No Primary Status: REG ER Study: Chest PA and Lateral Date of Exam: 08/07/24 Exam# [id number] Ordering Dr: Lyn Nogueira DO PROCEDURE: AP and lateral chest radiographs, two views TECHNIQUE: AP and lateral chest radiographs were obtained. COMPARISON: None. FINDINGS: The cardiomediastinal silhouette is unremarkable. Mild elevation right hemidiaphragm. The bones are osteopenic with degenerative changes in the spine. The lungs are mildly hyperinflated. No focal airspace consolidation, pneumothorax, or pleural effusion. RAD/Chest PA and Lateral IMPRESSION: Pulmonary hyperinflation. No acute cardiopulmonary process is demonstrated. If there are persistent symptoms or clinical concern, short-term follow-up CT evaluation may be helpful. Reading Location: [facility] CC: Dr. Lyn Nogueira DO; No Primary Care Physician Exhibit Display Representative: Signed Normal [facility] Comprehensive Metabolic Prof ilon 08-07-2024 Albumin [Mass/Vol] 3.2 g/dL Normal 3.2-5.0 [facility] Comment on above: Performed By: #### L 501.3620, L501.5200, L500.4050, L100.0100 #### [facility] [address] [place], [address] Albumin/Globulin [Mass ratio] 0.7 {ratio} Low 0.9-2.4 [facility] Comment on above: Performed By: #### L 501.3620, L501.5200, L500.4050, L100.0100 #### [facility] [address] [place], [address] ALK P 69 U/L Normal 45-117 [facility] Comment on above: Performed By: #### L 501.3620, L501.5200, L500.4050, L100.0100 #### [facility] [address] [place], [address] ALT [Catalytic activity/Vol] 27 U/L Normal 13-56 [facility] Comment on above: Performed By: #### L 501.3620, L501.5200, L500.4050, L100.0100 #### [facility] [address] [place], [address] AST [Catalytic activity/Vol] 37 U/L Normal 15-37 [facility] Comment on above: Result Comment: Slig ht Hemolysis, Result may be falsely increased. Performed By: #### L 501.3620, L501.5200, L500.4050, L100.0100 #### [facility] [address] [place], [address] Bilirubin [Mass/Vol] 0.30 mg/dL Normal 0.20-1.00 [facility] Comment on above: Result Comment: For patients on eltrombopag therapy, use of Dimension [place] TBIL is not recommended. Performed By: #### L 501.3620, L501.5200, L500.4050, L100.0100 #### [facility] [address] [place], [address] BUN/CRE 16.0 RATIO Normal 10-20 [facility] Comment on above: Performed By: #### L 501.3620, L501.5200, L500.4050, L100.0100 #### [facility] [address] [place], [address] CA,Total 9.1 mg/dL Normal 8.5-10.1 [facility] Comment on above: Performed By: #### L 501.3620, L501.5200, L500.4050, L100.0100 #### [facility] [address] [place], [address] Chloride [Moles/Vol] 98 mmol/L Normal 98-107 [facility] Comment on above: Performed By: #### L 501.3620, L501.5200, L500.4050, L100.0100 #### [facility] [address] [place], [address] CO2 [Moles/Vol] 29.0 mmol/L Normal 21.0-32.0 [facility] Comment on above: Performed By: #### L 501.3620, L501.5200, L500.4050, L100.0100 #### [facility] [address] [place], [address] Creatinine [Mass/Vol] 0.94 mg/dL Normal 0.55-1.02 [facility] Comment on above: Result Comment: The validity of the calculated GFR GFRAA in patients over 70 years has not been determined. Clinical correlation is essential. Performed By: #### L 501.3620, L501.5200, L500.4050, L100.0100 #### [facility] [address] [place], [address] EST GFR - AA 77 mL/min Normal >60 [facility] Comment on above: Result Comment: Afri can Citizen [place] GFR Calc Performed By: #### L 501.3620, L501.5200, L500.4050, L100.0100 #### [facility] [address] [place], [address] GAP 8 Normal 5-15 [facility] Comment on above: Performed By: #### L 501.3620, L501.5200, L500.4050, L100.0100 #### [facility] [address] [place], [address] GFR/1.73 sq M.predicted among non-blacks MDRD (S/P/Bld) [Vol rate/Area] 63 mL/min/{1.73_m2} Normal >60 [facility] Comment on above: Result Comment: Non- GFR Calc Performed By: #### L 501.3620, L501.5200, L500.4050, L100.0100 #### [facility] [address] [place], [address] Globulin (S) [Mass/Vol] 4.8 g/dL High 2.2-4.2 [facility] Comment on above: Performed By: #### L 501.3620, L501.5200, L500.4050, L100.0100 #### [facility] [address] [place], [address] Glucose [Mass/Vol] 102 mg/dL Normal 74-106 [facility] Comment on above: Result Comment: Fast ing Glucose result from 100 to 125 mg/dL suggests IMPAIRED HOMEOSTASIS per A.D.A. criteria. Performed By: #### L 501.3620, L501.5200, L500.4050, L100.0100 #### [facility] [address] [place], [address] Potassium [Moles/Vol] 3.9 mmol/L Normal 3.5-5.1 [facility] Comment on above: Result Comment: Slig ht Hemolysis, Result may be falsely increased. Performed By: #### L 501.3620, L501.5200, L500.4050, L100.0100 #### [facility] [address] [place], [address] Sodium [Moles/Vol] 134 mmol/L Low 136-145 [facility] Comment on above: Performed By: #### L 501.3620, L501.5200, L500.4050, L100.0100 #### [facility] [address] [place], [address] T PROT 8.0 g/dL Normal 6.4-8.2 [facility] Comment on above: Performed By: #### L 501.3620, L501.5200, L500.4050, L100.0100 #### [facility] [address] [place], [address] Urea nitrogen [Mass/Vol] 15 mg/dL Normal 7-18 [facility] Comment on above: Performed By: #### L 501.3620, L501.5200, L500.4050, L100.0100 #### [facility] [address] [place], [address] Emergency Department Summary on 08-07-2024 Emergency Department Summary [facility] Medical Records Department [address] [place] [address] Emergency Department Summary 08/07/24 MR#: [id number] Acct: [id number] Name: WILBERT JOHNSON Rep #: [id number] : 1960 64 From: Lyn Nogueira DO PCP: Dr. Mayra Cortez MD Status:ADM BRYANNA Location: [address] History of Present Illness Chief Complaint: General Illness Informant: patient Narrative Narrative: Patient is a 64-year-old female with history of fibromyalgia, chronic pain (on Belbuca) and gastric ulcer disease presenting with 3 days of flulike symptoms. Patient states that she has been having headache from hell for the past 3 days. States she does have a history of sinus headaches. She states she is having bilateral ear pain and feels like there icepick's in her ear starting this morning. She notes she has had a mild cough. She does have a history of COPD wears 2 L of oxygen at baseline. Denies any associated chest pain. Does have nausea. Is also management of urinary tract infection she has had some urinary frequency. Her daughter thought she saw some blood in her urine. She has chronic urgency. She denies any dysuria. She is complaining of lower abdominal/suprapubic pain. She has had sick contacts at home. She is most distressed because she has not been able to take her chronic pain medication because of her severe nausea and this is making her chronic pain worse as well. Denies any associated numbness or tingling no other complaints or concerns reported. [facility] Medical History COPD (chronic obstructive pulmonary disease) On home oxygen therapy Kidney stones Home Medications ???Medication ???Instructions ???Recorded ???Last Taken ???Type Saccharomyces boulardii 250 mg 250 mg PO DAILY 08/07/24 Unknown H istory capsule (Probiotic (S.boulardii)) budesonide 160 mcg-glycopyr 9 2 inh inhalation BID 08/07/24 Unkn own History mcg-formot 4.8 mcg/actuation HFA inhaler (Breztri Aerosphere) cholecalciferol (vitamin D3) 125 125 mcg PO DAILY 08/07/24 Unknown History mcg (5,000 unit) capsule fexofenadine 180 mg tablet 180 mg PO DAILY 08/07/24 Unknown H istory (Allergy Relief (fexofenadine)) fluoxetine 20 mg capsule 20 mg PO QHS 08/07/24 Unknown Hist ory fluoxetine 40 mg capsule 40 mg PO DAILY 08/07/24 Unknown Hi story fluticasone propionate 50 1 spray intranasal DAILY 08/07/24 Unknown History mcg/actuation nasal spray,suspension folic acid 1 mg tablet 1 mg PO DAILY 08/07/24 Unknown His tory gabapentin 800 mg tablet 800 mg PO 4X/DAY 08/07/24 Unknown History omeprazole 40 mg capsule,delayed 40 mg PO DAILY 08/07/24 Unknown Hi story release potassium chloride 20 mEq 20 meq PO DAILY 08/07/24 Unknown H istory tablet,extended release(part/cryst) roflumilast 500 mcg tablet 500 mcg PO DAILY 08/07/24 Unknown History sucralfate 1 gram tablet 1 g PO DAILY 08/07/24 Unknown Hist ory tizanidine 4 mg tablet 4 mg PO TID PRN muscle spasticity 08/07/24 Unknown History vitamin B complex 1 cap PO DAILY 08/07/24 Unknown Hi story Allergy/AdvReac Type Severity Reaction Status Date / Time ropinirole (From Requip) Allergy Severe Anaphylaxis Verified 08/07/24 16:05 latex Allergy Mild Rash Verified 08/07/24 16:05 mold AdvReac PT UNSURE Verified 08/07/24 16:05 OF REACTION Surgical History H/O: hysterectomy History of appendectomy History of cholecystectomy Social History household members: family housing: house Smoking Status: Current every day smoker tobacco type: e-cigarettes ROS ROS ED Constitutional Constitutional ED: Reports chills ENT ENT ED: Reports ear pain bilateral, sore throat and other Details: congestion Cardiovascular Cardiovascular: Denies chest pain Respiratory/Chest Respiratory/Chest: Reports cough and dyspnea Gastrointestinal Gastrointestinal: Reports abdominal pain and nausea; Denies constipation, diarrhea or vomiting Genitourinary Genitourinary ED: Reports dysuria, hematuria and urinary frequency Musculoskeletal Musculoskeletal: Reports arthralgias and myalgias Integumentary Denies rash Neurologic Neurologic: Reports headache(s) and weakness Psychiatric Psychiatric: Reports anxiety Hematologic/Lymphatic Hematologic/Lymphatic: Denies easy bleeding or easy bruising EXAM Physical Exam Const Vital Signs: 08/07/24 16:05 08/07/24 16:57 08/07/24 17:12 Temperature 98.4 F 98.3 F Temperature Source Oral Oral Pulse Rate 68 78 Respiratory Rate 18 16 Respiratory Effort Normal Non-Labored Respiratory Pattern Normal Blood Pressure 108/64 138/87 H Blood Pressure (more content not included)... Normal [facility] M100.678on 08-07-2024 M100.678 CRITICAL VALUE THAKKAR D TO DEVEN BABB RN ER 08/07/24 1835 Clif Mar. RESULTS READ BACK BY SAME. SARS-CoV-2 (COVID 19) Negative INFLUENZA A A Positive A INFLUENZA B Negative RSV PCR Negative INFLUENZAE A Normal [facility] Comment on above: Performed By: #### M 100.678, L400.0001 ####[facility] [address] [place], [address] Magnesiumon 08-07-2024 Magnesium [Mass/Vol] 2.2 mg/dL Normal 1.6-2.6 [facility] Comment on above: Result Comment: Slig ht Hemolysis, Result may be falsely increased. Performed By: #### L 501.3620, L501.5200, L500.4050, L100.0100 ####[facility] [address] [place], [address] Urinalysis, Completeon 08-07 BACTERIA 1+ /hpf Normal None Seen [facility] Comment on above: Order Comment: CLEAN CATCH Performed By: #### M 100.678, L400.0001 ####[facility] [address] [place], [address] EPI,SQUAMOUS 10-25 SEEN Normal 5-10 [facility] Comment on above: Order Comment: CLEAN CATCH Performed By: #### M 100.678, L400.0001 ####[facility] [address] [place], [address] Mucus Ql (Urine sed) 1+ /hpf Normal [facility] Comment on above: Order Comment: CLEAN CATCH Performed By: #### M 100.678, L400.0001 ####[facility] [address] [place], [address] RBC 0-5 SEEN Normal 0-5 [facility] Comment on above: Order Comment: CLEAN CATCH Performed By: #### M 100.678, L400.0001 ####[facility] [address] [place], [address] WBC >100 SEEN Normal 0-5 [facility] Comment on above: Order Comment: CLEAN CATCH Performed By: #### M 100.678, L400.0001 ####[facility] [address] [place], [address] Absolute lymphocyte countOrd ered By: Trevor Douglass on 07-28-2023 Lymphocytes Auto (Unsp spec) [#/Vol] 1.67 10*3/uL 0.83-4.51 [facility] Automated lymphocyte count a s percentage of total leukocytesOrdered By: Trevor Douglass on 07-28-2023 Lymphocytes/100 WBC Auto (Unsp spec) 13.6 % 19-41 [facility] Basophil percentageOrdered B y: Trevor Douglass on 07-28-2023 Basophils/100 WBC (Bld) 0.2 % 0-1 [facility] Bilirubin [Mass/Vol] 0.50 mg/dL 0.20-1.00 [facility] Comment on above: For patients on eltr ombopag therapy, use of Dimension [place] TBIL is not recommended. Chloride [Moles/Vol] 106 mmol/L 98-107 [facility] Eosinophils/100 WBC (Bld) 0.1 % 0-5 [facility] Glucose [Mass/Vol] 137 mg/dL 74-106 [facility] Comment on above: Fasting Glucose resu lt greater than or equal to 126 mg/dL suggests DIABETES MELLITUS per A.D.A. criteria. Hemoglobin (Bld) [Mass/Vol] 14.0 g/dL 12.0-15.0 [facility] Monocytes/100 WBC (Bld) 7.5 % 0-10 [facility] Neutrophils (Bld) [#/Vol] 9.6 10*3/uL 2.0-7.7 [facility] Neutrophils/100 WBC (Bld) 78.3 % 47-70 [facility] Potassium [Moles/Vol] 3.5 mmol/L 3.5-5.1 [facility] Protein [Mass/Vol] 7.4 g/dL 6.4-8.2 [facility] Sodium [Moles/Vol] 135 mmol/L 136-145 [facility] WBC (Bld) [#/Vol] 12.2 10*3/uL 4.4-11.0 [facility] Determination of erythrocyte mean corpuscular volume (MCV)Ordered By: Trevor Douglass on 07-28-2023 MCV (RBC) [Entitic vol] 90.6 fL 81-99 [facility] Direct bilirubinOrdered By: Trevor Douglass on 07-28-2023 Bilirubin.direct [Mass/Vol] 0.15 mg/dL 0.00-0.30 [facility] Erythrocyte distribution wid th ratioOrdered By: Trevor Douglass on 07-28-2023 Erythrocyte distribution width (RBC) [Ratio] 12.6 % 11.6-14.6 [facility] Erythrocyte distribution wid th standard deviationOrdered By: Trevor Douglass on 07-28-2023 Erythrocyte distribution width (RBC) [Entitic vol] 41.6 fL 35.1-43.9 [facility] Hematocrit Auto (Bld) [Volum e fraction]Ordered By: Trevor Douglass on 07-28-2023 Hematocrit (Bld) [Volume fraction] 42.2 % 37-47 [facility] Immature granulocytes/100 WB C Auto (Bld)Ordered By: Trevor Douglass on 07-28-2023 Immature granulocytes/100 WBC (Bld) 0.300 % 0.0-0.9 [facility] Comment on above: IG% - Immature Granu locytes (promyelocytes, myelocytes and metamyelocytes) > 1% indicates that a LEFT SHIFT is Present. Laboratory - Chemistry and C hemistry - challengeOrdered By: Trevor Douglass on 07-28-2023 ALP [Catalytic activity/Vol] 73 U/L 45-117 [facility] ALT [Catalytic activity/Vol] 20 U/L 13-56 [facility] CO2 [Moles/Vol] 25.0 mmol/L 21.0-32.0 [facility] Globulin (S) [Mass/Vol] 4.4 g/dL 2.2-4.2 [facility] Lipase [Catalytic activity/Vol] 19 U/L 13-75 [facility] Comment on above: Please note:LIPASE r evised reference range effective 22. New Lipase methodology. Expected to produce lower values than the previous assay method. NEW Reference Range: 13 - 75 U/L Magnesium [Mass/Vol] 2.1 mg/dL 1.6-2.6 [facility] Urea nitrogen/Creatinine [Mass ratio] 11.0 mg/mg 10-20 [facility] - Hematology and Cell countsOrdered By: Trevor Douglass on 07-28-2023 MCH (RBC) [Entitic mass] 30.0 pg 27.0-32.0 [facility] MCHC (RBC) [Mass/Vol] 33.2 g/dL 32-36 [facility] Nucleated RBC/100 WBC (Bld) [Ratio] 0 % 0-5 [facility] Platelet mean volume (Bld) [Entitic vol] 9.8 fL 6.2-12.0 [facility] Platelets (Bld) [#/Vol] 285 10*3/uL 150-450 [facility] - Microbiology an d Antimicrobial susceptibilityOrdered By: Trevor Douglass on 07-28-2023 SARS-CoV-2 (COVID-19) RNA SUKHWINDER+probe Ql (Unsp spec) [facility] No Panel InformationOrdered By: Trevor Douglass on 07-28-2023 Estimated Creatinine Clearance Calc 79.98 ml/min [facility] Estimated GFR (MDRD) Amer 103 mL/min >60 [facility] Comment on above: GFR Calc Estimated GFR (MDRD) Non-Af Amer 85 mL/min >60 [facility] Comment on above: Non- GFR Calc RBC Auto (Bld) [#/Vol]Ordere d By: Trevor Douglass on 07-28-2023 RBC (Bld) [#/Vol] 4.66 10*6/uL 4.2-5.4 [facility] Serum or plasma calcium raquel urement (mass/volume)Ordered By: Trevor Douglass on 07-28-2023 Calcium [Mass/Vol] 8.5 mg/dL 8.5-10.1 [facility] Serum or plasma creatinine m easurement (mass/volume)Ordered By: Trevor Douglass on 07-28-2023 Creatinine [Mass/Vol] 0.73 mg/dL 0.55-1.02 [facility] Comment on above: The validity of the calculated GFR & GFRAA in patients over 70 years has not been determined. Clinical correlation is essential. Serum or plasma urea nitroge n measurement (mass/volume)Ordered By: Trevor Douglass on 07-28-2023 Urea nitrogen [Mass/Vol] 8 mg/dL 7-18 [facility] Thin prep Papanicolaou smear with manual screeningOrdered By: Trevor Douglass on 07-28-2023 Thin prep Papanicolaou smear with manual screening 3.0 g/dL 3.2-5.0 [facility] Thin prep Papanicolaou smear with manual screening 18 U/L 15-37 [facility] Thin prep Papanicolaou smear with manual screening 4 5-15 [facility] Pulmonary Function Studyon 1 Pulmonary Function Study [facility] Medical Records Patient: WILBERT JOHNSON. : 1960 [place] [address] Location: [facility] [phone] Unit #: [id number] Pulmonary Function Study Roland Quick DO Pulmonary Function Study Type of Study: Pulmonary Function Test Date of Study: 04/05/23 Referring Physician: MANUEL Acevedo Primary Care Provider: MANUEL Acevedo Reason for Study: COPD/SPN Spirometry: Pre-Bronchodilator FEV1/FVC: 58 FVC: 2.10L 69% FEV1: 1.21L 50% FEF 25-75: 25 Post-Bronchodilator FVC: 2.38L 78% FEV1: 1.33L 55% FEF 25-75: 36 Lung Volumes: T RV: 177 IC: 2.33 ERV: 0.08 Diffusion: DLCO: 80 DLCO/VA: 94 VA: 4.32 Flow volume loop confirms the above findings. Impression: 1. Moderately severe obstructive lung disease with a POSITIVE bronchodilator response 2. Moderate air trapping and mild hyperinflation 3. Normal DLCO cc: Bethany JACKSON Dictated by: Roland Quick DO on 04/06/23840 Entered by: Roland Qucik DO on 04/06/23840 Report Signed by: Roland Quick DO on 04/06/23 0842 < > Report Signed by: on Normal [facility] CT Chest Without Cont [id number] n 04-02-2023 CT Chest Without Cont [id number] [facility] Radiology Department Patient: WILBERT JOHNSON. : 1960 Sex: [place] [id number] Location: [facility] [phone] Unit #: [id number] Ordering Phys: Bethany Nesbitt APRN, CNP Exam Date: 04/05/23 Exam: CT CT Chest Without Cont [id number] Result: See Report :[id number] INDICATION: COPD/SPN. pt states no prev surg. prev smoker quit x2015. 1ppd x40 years. pt states she can''t breathe. not on O2. pt states currently vapes. EXAMINATION: CT CHEST WITHOUT CONTRAST - CT Chest W/O Contrast Injection TECHNIQUE: Helically acquired images were obtained of the chest. A radiation dose optimization technique was used for this scan. IV Contrast dosage and agent: None. COMPARISON: 09/30/2022 FINDINGS: LUNGS, PLEURA AND LARGE AIRWAYS: Partially calcified nodule in the right lower lobe on image 55 of series 3 measures 7.2 x 9.1 mm is stable No pleural effusion or thickening. No pneumothorax. THYROID: No thyroid lesions. HEART AND PERICARDIUM: Heart size is normal. No pericardial effusion. CORONARY ARTERIES: Coronary artery calcification is not seen. VESSELS: Thoracic aorta is not dilated. MEDIASTINUM AND KUNAL: No mediastinal or hilar adenopathy. Esophagus is unremarkable. No hiatal hernia. UPPER ABDOMEN: No acute pathology. Cholecystectomy clips. BONES: No suspicious lytic or blastic abnormality. IMPRESSION: 1. Stable right lower lobe pulmonary nodule. According to Fleischner Society recommendations, for low-risk or high-risk patients consider a follow-up chest CT at 12-18 months. If unchanged, no further follow-up. Electronically Signed: Vicente Owen MD (Brooks) at 13:48 EDT Reading Location ID and State: [address] [place] [address] , Service support , cc: Bethany Nesbitt THERAPEUTIC ASSISTANT-HAND PAINT MIXER Dictated by: Irineo Owen MD on 04/05/231347 Transcribed by: Irineo Owen on 04/05/231347 Report Signed by: Brayden BYRD,Irineo Odom on 04/05/23 1348 Normal [facility] Outpatient Cardiac Cath Note on 10-19-2022 Outpatient Cardiac Cath Note [facility] Medical Records Patient: WILBERT JOHNSON [address] : 1960 [place], [place] [address] Location: [facility] [phone] Unit #: [id number] [facility] #: [id number] Outpatient Cardiac Cath Note Ion Weathers PA-C Service Dt/Tm: 10/14/22 1524 Assessment (1) Abnormal stress test: Status: Acute (2) Unstable angina pectoris: Status: Suspected (3) COPD (chronic obstructive pulmonary disease): Status: Chronic (4) Fibromyalgia: Status: Chronic (5) Aortic regurgitation: Status: Chronic (6) Nicotine dependence: Status: Chronic (7) Hyperlipidemia: Status: Chronic Plan Plan per Dr. Liriano, Patient will undergo LHC today secondary to symptoms of exertional dyspnea with diaphoresis and abnormal stress test on 09/30/2022 revealing +TID of 1.39 concerning for balanced ischemia. Subjective Primary Political Science Faculty Member: Dr. Liriano Subjective Assessment: WILBERT JOHNSON is a 62 yr old F who was admitted on 10/14/2022 for R94.39 Past Medical History: Please refer to the assessment section for pertinent diagnosis. Social History: Please refer to the assessment section for pertinent social history. Family History: Please refer to the assessment section for pertinent family history. Allergies: Please refer to the EMR for a list of current allergies. Medications: Please refer to the EMR for a list of current medications. Objective Data: The last 24 hours of vital signs have been reviewed. Last Vital Signs Temp Pulse Resp BP Pulse Ox 97.9 F 76 12 144/66 H 90 10/14/22 14:42 10/14/22 14:42 10/14/22 14:42 10/14/22 14:42 10/14/22 14:42 Patient's intake and output for the past 24 hours reviewed. Weight from admission to present reviewed. General Appearance: Positive Alert, Resting Comfortably and Cooperative; Negative Acute Distress HEENT: Positive Normal Inspection and GIL Skin: Positive Color Normal Neck: Positive Normal Inspection Cardiovascular: Positive Regular Rate and Rhythm and S1 S2 Lungs: Positive Clear to Auscultate Bila Abdomen: Positive Soft and Bowel Sounds; Negative Tender to palpation Extremities: Positive Warm and Dry; Negative Edema Neurologic: Positive Grossly Intact and A AND O x3 Psychological: Positive Mood AND Affect Normal Cardiac Testing Needs Cardiac Rehab Discussion at F/U?: Yes (if a stent is placed) Date of Last Echo: 08/22/2022 Ejection Fraction (%): 55-60 Significant Valvular Finding: trivial AR Stress Test Date: 09/30/22 (TID 1.39) Indication for Cardiac Cath Indication for Senior Ssis Developer Visit: Worsening Angina and Suspected CAD Chest Pain Symptom Assessment: Atypical Angina Functional Capacity: >= 4 METS with symptoms Entered by: Ion Weathers PA-C on 10/14/22 1524 Report Signed by: Ion Weathers PA-C on 10/14/22 1528 < > Report Signed by: Jae Liriano DO [facility] on 10/19/22 1203 < > Normal [facility] Albumin [Mass/volume] in Ser um or Plasmaon 10-14-2022 Albumin [Mass/Vol] 3.8 g/dL 3.5-5.0 [facility] Work Phone: Basic Metabolic Panel,Fastin arti 10-14-2022 Anion gap [Moles/Vol] 7 mmol/L Normal 4-12 [facility] Comment on above: Order Comment: Comme nt Draw am of procedure if abnormal/not drawn beforeComment DRAW LIVER PROFILE IF NOT DONE W/I LAST 30 DAYSComment DRAW LIPID PROFILE IF NOT DONE W/I LAST 30 DAYS Performed By: #### L 400.0202, L400.0400, L400.0302 ####Main Laboratory ([facility])[address], [place] [phone] Nivar, MD Calcium [Mass/Vol] 8.50 mg/dL Low 8.8-10.5 [facility] Comment on above: Order Comment: Comme nt Draw am of procedure if abnormal/not drawn beforeComment DRAW LIVER PROFILE IF NOT DONE W/I LAST 30 DAYSComment DRAW LIPID PROFILE IF NOT DONE W/I LAST 30 DAYS Performed By: #### L 400.0202, L400.0400, L400.0302 ####[facility] ([facility])[address], [place] [phone] Nivar, MD Chloride [Moles/Vol] 105 mmol/L Normal 101-111 [facility] Comment on above: Order Comment: Comme nt Draw am of procedure if abnormal/not drawn beforeComment DRAW LIVER PROFILE IF NOT DONE W/I LAST 30 DAYSComment DRAW LIPID PROFILE IF NOT DONE W/I LAST 30 DAYS Performed By: #### L 400.0202, L400.0400, L400.0302 ####[facility] ([facility])[address], [place] [phone] Nivar, MD CO2 [Moles/Vol] 27 mmol/L Normal 21-32 [facility] Comment on above: Order Comment: Comme nt Draw am of procedure if abnormal/not drawn beforeComment DRAW LIVER PROFILE IF NOT DONE W/I LAST 30 DAYSComment DRAW LIPID PROFILE IF NOT DONE W/I LAST 30 DAYS Performed By: #### L 400.0202, L400.0400, L400.0302 ####[facility] ([facility])[address], [place] [phone] Nivar, MD Creatinine [Mass/Vol] 0.90 mg/dL Normal 0.60-1.30 [facility] Comment on above: Order Comment: Comme nt Draw am of procedure if abnormal/not drawn beforeComment DRAW LIVER PROFILE IF NOT DONE W/I LAST 30 DAYSComment DRAW LIPID PROFILE IF NOT DONE W/I LAST 30 DAYS Performed By: #### L 400.0202, L400.0400, L400.0302 ####[facility] ([facility])[address], [place] [phone] Nivar, MD GFR Calculation > 60 Normal [facility] Comment on above: Order Comment: Comme nt Draw am of procedure if abnormal/not drawn beforeComment DRAW LIVER PROFILE IF NOT DONE W/I LAST 30 DAYSComment DRAW LIPID PROFILE IF NOT DONE W/I LAST 30 DAYS Result Comment: Health Underwriter nirmal Kidney Disease stages by NKDF Stage eGFR I >90 II 60-89 III 30-59 IV 15-29 V <15 or dialysis AGE(years) AVERAGE GFR 60-69 85 ml/min/1.73 square meters Note:This result is normalized to 1.73 square meter body surface area. Height and weight are not factored. Performed By: #### L 400.0202, L400.0400, L400.0302 ####[facility] ([facility])[address] [place] [phone] Nivar, MD Glucose [Mass/Vol] 96 mg/dL Normal 70-110 [facility] Comment on above: Order Comment: Comme nt Draw am of procedure if abnormal/not drawn beforeComment DRAW LIVER PROFILE IF NOT DONE W/I LAST 30 DAYSComment DRAW LIPID PROFILE IF NOT DONE W/I LAST 30 DAYS Performed By: #### L 400.0202, L400.0400, L400.0302 ####[facility] ([facility])[address], [place] [phone] Nivar, MD Potassium [Moles/Vol] 4.1 mmol/L Normal 3.6-5.0 [facility] Comment on above: Order Comment: Comme nt Draw am of procedure if abnormal/not drawn beforeComment DRAW LIVER PROFILE IF NOT DONE W/I LAST 30 DAYSComment DRAW LIPID PROFILE IF NOT DONE W/I LAST 30 DAYS Performed By: #### L 400.0202, L400.0400, L400.0302 ####[facility] ([facility])[address], [place] [phone] Nivar, MD Sodium [Moles/Vol] 139 mmol/L Normal 135-145 [facility] Comment on above: Order Comment: Comme nt Draw am of procedure if abnormal/not drawn beforeComment DRAW LIVER PROFILE IF NOT DONE W/I LAST 30 DAYSComment DRAW LIPID PROFILE IF NOT DONE W/I LAST 30 DAYS Performed By: #### L 400.0202, L400.0400, L400.0302 ####[facility] ([facility])[address], [place] [phone] Nivar, MD Urea nitrogen [Mass/Vol] 10 mg/dL Normal 7-20 [facility] Comment on above: Order Comment: Comme nt Draw am of procedure if abnormal/not drawn beforeComment DRAW LIVER PROFILE IF NOT DONE W/I LAST 30 DAYSComment DRAW LIPID PROFILE IF NOT DONE W/I LAST 30 DAYS Performed By: #### L 400.0202, L400.0400, L400.0302 ####[facility] ([facility])[address], [place] [phone] Nivar, MD Basophils Auto (Bld) [#/Vol] on 10-14-2022 Basophils (Bld) [#/Vol] 100 /cmm 0-200 L [facility] [place] Work Phone: Basophils/100 WBC Auto (Bld) on 10-14-2022 Basophils/100 WBC (Bld) 0.9 % 0-2 L [facility] [place] Work Phone: Blood anion gapon 10-14-2022 Anion gap (Bld) [Moles/Vol] 7 mmol/L 4-12 [facility] Work Phone: Blood coagulation panelon Blood coagulation panel 200 /cmm 0-500 L [facility] [place] Work Phone: Blood hematocrit (volume fra ction)on 10-14-2022 Hematocrit (Bld) [Volume fraction] 42.8 % 35.0-44.0 [facility] Work Phone: Blood hemoglobin measurement (mass/volume)on 10-14-2022 Hemoglobin (Bld) [Mass/Vol] 14.5 g/dL 12.0-15.0 [facility] Work Phone: CBC with Differentialon 09-20 Abs Baso Count 100 /cmm Normal 0-200 [facility] Comment on above: Order Comment: Comme nt Draw am of procedure if abnormal/not drawn before Performed By: #### L 100.0000 ####[facility] ([facility])[address], [place] [phone] Nivar, MD Abs Eos Count 200 /cmm Normal 0-500 [facility] Comment on above: Order Comment: Comme nt Draw am of procedure if abnormal/not drawn before Performed By: #### L 100.0000 ####[facility] ([facility])[address], [place] [phone] Nivar, MD Abs Lymph Count 3100 /cmm Normal 2765-0227 [facility] Comment on above: Order Comment: Comme nt Draw am of procedure if abnormal/not drawn before Performed By: #### L 100.0000 ####[facility] ([facility])[address], [place] [phone] Nivar, MD Abs Hocking Count 800 /cmm Normal 0-800 [facility] Comment on above: Order Comment: Comme nt Draw am of procedure if abnormal/not drawn before Performed By: #### L 100.0000 ####[facility] ([facility])[address] [phone] Nivar, MD Abs Neut Count 6600 /cmm Normal 9736-1986 [facility] Comment on above: Order Comment: Comme nt Draw am of procedure if abnormal/not drawn before Performed By: #### L 100.0000 ####[facility] ([facility])[address], [place] [phone] Nivar, MD Basophils/100 WBC (Bld) 0.9 % Normal 0-2 L [facility] [place] Comment on above: Order Comment: Comme nt Draw am of procedure if abnormal/not drawn before Performed By: #### L 100.0000 ####[facility] ([facility])[address], [place] [phone] Nivar, MD EOS-Auto Diff 1.9 % Normal 0-6 [facility] Comment on above: Order Comment: Comme nt Draw am of procedure if abnormal/not drawn before Performed By: #### L 100.0000 ####[facility] ([facility])[address], [place] [phone] Nivar, MD Erythrocyte distribution width (RBC) [Ratio] 12.9 % Normal 12.0-16.0 [facility] Comment on above: Order Comment: Comme nt Draw am of procedure if abnormal/not drawn before Performed By: #### L 100.0000 ####[facility] ([facility])[address], [place] [phone] Nivar, MD Hematocrit (Bld) [Volume fraction] 42.8 % Normal 35.0-44.0 [facility] Comment on above: Order Comment: Comme nt Draw am of procedure if abnormal/not drawn before Performed By: #### L 100.0000 ####[facility] ([facility])[address], [place] [phone] Nivar, MD Hemoglobin (Bld) [Mass/Vol] 14.5 g/dL Normal 12.0-15.0 [facility] Comment on above: Order Comment: Comme nt Draw am of procedure if abnormal/not drawn before Performed By: #### L 100.0000 ####[facility] ([facility])[address] [place] [phone] Nivar, MD Lymphocytes/100 WBC (Bld) 28.8 % Normal 15-45 [facility] Comment on above: Order Comment: Comme nt Draw am of procedure if abnormal/not drawn before Performed By: #### L 100.0000 ####[facility] ([facility])[address], [place] [phone] Nivar, MD MCH (RBC) [Entitic mass] 30.6 pg Normal 27.5-33.0 [facility] Comment on above: Order Comment: Comme nt Draw am of procedure if abnormal/not drawn before Performed By: #### L 100.0000 ####[facility] ([facility])[address], [place] [phone] Nivar, MD MCHC (RBC) [Mass/Vol] 34.0 g/dL Normal 33.0-36.0 [facility] Comment on above: Order Comment: Comme nt Draw am of procedure if abnormal/not drawn before Performed By: #### L 100.0000 ####[facility] ([facility])[address], [place] [phone] Nivar, MD MCV 89.9 CU DEANNA Normal 80-97 [facility] Comment on above: Order Comment: Comme nt Draw am of procedure if abnormal/not drawn before Performed By: #### L 100.0000 ####[facility] ([facility])[address], [place] [phone] Nivar, MD Hocking- Auto Diff 7.2 % Normal 2-10 [facility] Comment on above: Order Comment: Comme nt Draw am of procedure if abnormal/not drawn before Performed By: #### L 100.0000 ####[facility] ([facility])[address], [place] [phone] Nivar, MD Neut-Auto Diff 61.2 % Normal 40-70 [facility] Comment on above: Order Comment: Comme nt Draw am of procedure if abnormal/not drawn before Performed By: #### L 100.0000 ####[facility] ([facility])[address], [place] [phone] Nivar, MD NRBC-Auto 0.1 /100 WBC Normal <1 [facility] Comment on above: Order Comment: Comme nt Draw am of procedure if abnormal/not drawn before Performed By: #### L 100.0000 ####[facility] ([facility])[address], [place] [phone] Nivar, MD Platelet Count 301 th/cmm Normal 150-400 [facility] Comment on above: Order Comment: Comme nt Draw am of procedure if abnormal/not drawn before Performed By: #### L 100.0000 ####[facility] ([facility])[address], [place] [phone] Nivar, MD RBC 4.76 mil/cmm Normal 4.00-5.10 [facility] Comment on above: Order Comment: Comme nt Draw am of procedure if abnormal/not drawn before Performed By: #### L 100.0000 ####[facility] ([facility])[address], [place] [phone] Nivar, MD WBC 10.7 th/cmm High 4.4-10.5 [facility] Comment on above: Order Comment: Comme nt Draw am of procedure if abnormal/not drawn before Performed By: #### L 100.0000 ####[facility] ([facility])[address], [place] [phone] Nivar, MD Cholesterol in LDL Direct as say [Mass/Vol]on 10-14-2022 Cholesterol in LDL [Mass/Vol] 121 mg/dL High <100 [facility] Work Phone: Comment on above: The National Cholest jovany Education Program (NCEP) has set the following guidelines (reference values) for cholesterol, LDL: Desirable (optimal): <100 mg/dL Low Risk (near optimal): 100-129 mg/dL Borderline high: 130-159 mg/dL High: 160-189 mg/dL Very high: >=190 mg/dL Cholesterol in VLDL Calc [Ma ss/Vol]on 10-14-2022 Cholesterol in VLDL [Mass/Vol] 40 mg/dL High <39 [facility] Work Phone: EKG Monitoringon 10-14-2022 EKG Monitoring [facility] Patient: WILBERT JOHNSON [address] : 1960 [place], [place] [address] Location: [facility] [phone] Unit #: [id number] Ordering Phys: Ion Weathers PA-C EKG Monitoring Epi Schaeffer MD, FACC, FACP Exam Date/Time Oct 14 2022 14:26:01 Test Reason : Place copy on chart Blood Pressure : / mmHG Vent. Rate : 079 BPM Atrial Rate : 079 BPM P-R Int : 166 ms QRS Dur : 080 ms QT Int : 354 ms P-R-T Axes : 064 -29 034 degrees QTc Int : 405 ms Normal sinus rhythm Nonspecific ST and T wave abnormality Abnormal ECG When compared with ECG of 21-SEP-2022 14:13, No significant change was found Confirmed by EPI SCHAEFFER MD, FACC, FACP ([id number]) on 10/14/2022 7:20:04 PM Referred By: Ion Weathers Confirmed By:EPI VILLAFANAC Dictated by: Epi Schaeffer MD, JESSICA, FACP on 10/14/22 1426 Transcribed by: [employer] M-AT on 10/14/221919 Report Signed by: Epi VILLAFANAC FACP on 10/14/221919 Normal [facility] Eosinophils/100 WBC Auto (Bl d)on 10-14-2022 Eosinophils/100 WBC (Bld) 1.9 % 0-6 [facility] Work Phone: Erythrocyte distribution wid th ratioon 10-14-2022 Erythrocyte distribution width (RBC) [Ratio] 12.9 % 12.0-16.0 [facility] Work Phone: Hepatic Function Panel (Live r)on 10-14-2022 Albumin [Mass/Vol] 3.8 g/dL Normal 3.5-5.0 [facility] Comment on above: Order Comment: Comme nt Draw am of procedure if abnormal/not drawn beforeComment DRAW LIVER PROFILE IF NOT DONE W/I LAST 30 DAYSComment DRAW LIPID PROFILE IF NOT DONE W/I LAST 30 DAYS Performed By: #### L 400.0202, L400.0400, L400.0302 ####[facility] ([facility])[address], [place] [phone] Nivar, MD Alk Phos 74 IU/L Normal 39-118 [facility] Comment on above: Order Comment: Comme nt Draw am of procedure if abnormal/not drawn beforeComment DRAW LIVER PROFILE IF NOT DONE W/I LAST 30 DAYSComment DRAW LIPID PROFILE IF NOT DONE W/I LAST 30 DAYS Performed By: #### L 400.0202, L400.0400, L400.0302 ####[facility] ([facility])[address], [place] [phone] Nivar, MD ALT [Catalytic activity/Vol] 29 U/L Normal 10-40 [facility] Comment on above: Order Comment: Comme nt Draw am of procedure if abnormal/not drawn beforeComment DRAW LIVER PROFILE IF NOT DONE W/I LAST 30 DAYSComment DRAW LIPID PROFILE IF NOT DONE W/I LAST 30 DAYS Performed By: #### L 400.0202, L400.0400, L400.0302 ####[facility] ([facility])[address], [place] [phone] Nivar, MD AST [Catalytic activity/Vol] 28 U/L Normal 15-41 [facility] Comment on above: Order Comment: Comme nt Draw am of procedure if abnormal/not drawn beforeComment DRAW LIVER PROFILE IF NOT DONE W/I LAST 30 DAYSComment DRAW LIPID PROFILE IF NOT DONE W/I LAST 30 DAYS Performed By: #### L 400.0202, L400.0400, L400.0302 ####[facility] ([facility])[address] [place], [place] [phone] Nivar, MD Bili,Direct 0.1 mg/dL Normal 0.1-0.2 [facility] Comment on above: Order Comment: Comme nt Draw am of procedure if abnormal/not drawn beforeComment DRAW LIVER PROFILE IF NOT DONE W/I LAST 30 DAYSComment DRAW LIPID PROFILE IF NOT DONE W/I LAST 30 DAYS Performed By: #### L 400.0202, L400.0400, L400.0302 ####[facility] ([facility])[address], [place] [phone] Nivar, MD Bili,Total 0.4 mg/dL Normal 0.2-1.0 [facility] Comment on above: Order Comment: Comme nt Draw am of procedure if abnormal/not drawn beforeComment DRAW LIVER PROFILE IF NOT DONE W/I LAST 30 DAYSComment DRAW LIPID PROFILE IF NOT DONE W/I LAST 30 DAYS Performed By: #### L 400.0202, L400.0400, L400.0302 ####Main Laboratory ([facility])[address], [place] [phone] Nivar, MD Protein [Mass/Vol] 6.8 g/dL Normal 6.2-8.0 [facility] Comment on above: Order Comment: Comme nt Draw am of procedure if abnormal/not drawn beforeComment DRAW LIVER PROFILE IF NOT DONE W/I LAST 30 DAYSComment DRAW LIPID PROFILE IF NOT DONE W/I LAST 30 DAYS Performed By: #### L 400.0202, L400.0400, L400.0302 ####Main Laboratory ([facility])[address] [place], [place] [phone] Nivar, MD Lipid Panelon 10-14-2022 Chol/HDL Risk 3.8 Low 4.0-4.4 [facility] Comment on above: Order Comment: Comme nt Draw am of procedure if abnormal/not drawn beforeComment DRAW LIVER PROFILE IF NOT DONE W/I LAST 30 DAYSComment DRAW LIPID PROFILE IF NOT DONE W/I LAST 30 DAYS Performed By: #### L 400.0202, L400.0400, L400.0302 ####Main Laboratory ([facility])[address] [place], [place] [phone] Nivar, MD Cholesterol [Mass/Vol] 202 mg/dL High <200 [facility] Comment on above: Order Comment: Comme nt Draw am of procedure if abnormal/not drawn beforeComment DRAW LIVER PROFILE IF NOT DONE W/I LAST 30 DAYSComment DRAW LIPID PROFILE IF NOT DONE W/I LAST 30 DAYS Performed By: #### L 400.0202, L400.0400, L400.0302 ####Main Laboratory ([facility])[address], [place] [phone] Nivar, MD Cholesterol in HDL [Mass/Vol] 53 mg/dL Normal [facility] Comment on above: Order Comment: Comme nt Draw am of procedure if abnormal/not drawn beforeComment DRAW LIVER PROFILE IF NOT DONE W/I LAST 30 DAYSComment DRAW LIPID PROFILE IF NOT DONE W/I LAST 30 DAYS Result Comment: The National Cholesterol Education Program (NCEP) has set the following guidelines (reference values) for cholesterol, HDL: Low: <40 mg/dL Normal: 40-60 mg/dL High: >60 mg/dL Performed By: #### L 400.0202, L400.0400, L400.0302 ####Main Laboratory ([facility])[address] [place], [place] [phone] Nivar, MD Cholesterol in LDL [Mass/Vol] 121 mg/dL High [facility] Comment on above: Order Comment: Comme nt Draw am of procedure if abnormal/not drawn beforeComment DRAW LIVER PROFILE IF NOT DONE W/I LAST 30 DAYSComment DRAW LIPID PROFILE IF NOT DONE W/I LAST 30 DAYS Result Comment: The National Cholesterol Education Program (NCEP) has set the following guidelines (reference values) for cholesterol, LDL: Desirable (optimal): <100 mg/dL Low Risk (near optimal): 100-129 mg/dL Borderline high: 130-159 mg/dL High: 160-189 mg/dL Very high: >=190 mg/dL Performed By: #### L 400.0202, L400.0400, L400.0302 ####Main Laboratory ([facility])[address], [place] [phone] Nivar, MD Cholesterol in VLDL [Mass/Vol] 40 mg/dL High <39 [facility] Comment on above: Order Comment: Comme nt Draw am of procedure if abnormal/not drawn beforeComment DRAW LIVER PROFILE IF NOT DONE W/I LAST 30 DAYSComment DRAW LIPID PROFILE IF NOT DONE W/I LAST 30 DAYS Performed By: #### L 400.0202, L400.0400, L400.0302 ####Main Laboratory ([facility])[address], [place] [phone] Nivar, MD dLDL/HDL RISK 2.2 Normal <3.1 [facility] Comment on above: Order Comment: Comme nt Draw am of procedure if abnormal/not drawn beforeComment DRAW LIVER PROFILE IF NOT DONE W/I LAST 30 DAYSComment DRAW LIPID PROFILE IF NOT DONE W/I LAST 30 DAYS Performed By: #### L 400.0202, L400.0400, L400.0302 ####Main Laboratory ([facility])[address], [place] [phone] Nivar, MD Triglyceride [Mass/Vol] 204 mg/dL High <150 L [facility] [place] Comment on above: Order Comment: Comme nt Draw am of procedure if abnormal/not drawn beforeComment DRAW LIVER PROFILE IF NOT DONE W/I LAST 30 DAYSComment DRAW LIPID PROFILE IF NOT DONE W/I LAST 30 DAYS Performed By: #### L 400.0202, L400.0400, L400.0302 ####Main Laboratory ([facility])[address], [place] [phone] Nivar, MD Lymphocytes/100 WBC Auto (Bl d)on 10-14-2022 Lymphocytes/100 WBC (Bld) 28.8 % 15-45 [facility] Work Phone: MCH Auto (RBC) [Entitic mass ]on 10-14-2022 MCH (RBC) [Entitic mass] 30.6 pg 27.5-33.0 [facility] Work Phone: MCHC Auto (RBC) [Mass/Vol]on 10-14-2022 MCHC (RBC) [Mass/Vol] 34.0 g/dL 33.0-36.0 [facility] Work Phone: MCV Auto (RBC) [Entitic vol] on 10-14-2022 MCV (RBC) [Entitic vol] 89.9 CU DEANNA 80-97 [facility] Work Phone: Monocytes Auto (Bld) [#/Vol] on 10-14-2022 Monocytes (Bld) [#/Vol] 800 /cmm 0-800 L [facility] [place] Work Phone: Monocytes/100 WBC Auto (Bld) on 10-14-2022 Monocytes/100 WBC (Bld) 7.2 % 2-10 L [facility] [place] Work Phone: Neutrophils/100 WBC Auto (Bl d)on 10-14-2022 Neutrophils/100 WBC (Bld) 61.2 % 40-70 [facility] [employer] Work Phone: No Panel Informationon 10-14 Absolute Lymphocytes (auto) 3100 /cmm [phone] [facility] Work Phone: Absolute Neutrophils (auto) 6600 /cmm [phone] [facility] [employer] Work Phone: Glomerular Filtration Rate Calc > 60 >60 [facility] [employer] Work Phone: Comment on above: AGE(years) AVERAGE G FR 60-69 85 ml/min/1.73 square metersNote:This result is normalized to 1.73 square meter body surface area. Height and weight are not factored.Chronic Kidney Disease stages by NKDFStage eGFR I >90 II 60-89 III 30-59 IV 15-29 V <15 or dialysis Nucleated RBC Auto (Bld) [#/ Vol]on 10-14-2022 Nucleated RBC (Bld) [#/Vol] 0.1 /100 WBC <1 [facility] [employer] Work Phone: Platelets Auto (Bld) [#/Vol] on 10-14-2022 Platelets (Bld) [#/Vol] 301 th/cmm 150-400 L [facility] [employer] Work Phone: RBC Auto (Bld) [#/Vol]on RBC (Bld) [#/Vol] 4.76 mil/cmm 4.00-5.10 [facility] Work Phone: Serum or plasma alanine garcia otransferase measurement (enzymatic activity/volume)on 10-14-2022 ALT [Catalytic activity/Vol] 29 U/L 10-40 [facility] Work Phone: Serum or plasma alkaline lorena sphatase measurement (enzymatic activity/volume)on 10-14-2022 ALP [Catalytic activity/Vol] 74 U/L 39-118 [facility] Work Phone: Serum or plasma aspartate am inotransferase measurement (enzymatic activity/volume)on 10-14-2022 AST [Catalytic activity/Vol] 28 U/L 15-41 [facility] Work Phone: Serum or plasma calcium raquel urement (mass/volume)on 10-14-2022 Calcium [Mass/Vol] 8.50 mg/dL Low 8.8-10.5 [facility] Work Phone: Serum or plasma carbon dioxi de, total measurement (moles/volume)on 10-14-2022 CO2 [Moles/Vol] 27 mmol/L 21-32 [facility] Work Phone: Serum or plasma chloride pedro surement (moles/volume)on 10-14-2022 Chloride [Moles/Vol] 105 mmol/L 101-111 [facility] Work Phone: Serum or plasma cholesterol in HDL measurement (mass/volume)on 10-14-2022 Cholesterol in HDL [Mass/Vol] 53 mg/dL >40 [facility] Work Phone: Comment on above: The National Cholest jovany Education Program (NCEP) has set the following guidelines (reference values) for cholesterol, HDL: Low: <40 mg/dL Normal: 40-60 mg/dL High: >60 mg/dL Serum or plasma cholesterol in LDL/cholesterol in HDL mass ratioon 10-14-2022 Cholesterol in LDL/Cholesterol in HDL [Mass ratio] 2.2 {ratio} <3.1 [facility] Work Phone: Serum or plasma cholesterol measurement (mass/volume)on 10-14-2022 Cholesterol [Mass/Vol] 202 mg/dL High <200 [facility] Work Phone: Serum or plasma creatinine m easurement (mass/volume)on 10-14-2022 Creatinine [Mass/Vol] 0.90 mg/dL 0.60-1.30 [facility] Work Phone: Serum or plasma direct bilir ubin measurement (mass/volume)on 10-14-2022 Bilirubin.direct [Mass/Vol] 0.1 mg/dL 0.1-0.2 [facility] Work Phone: Serum or plasma fasting gluc ose measurement (mass/volume)on 10-14-2022 Glucose post fast [Mass/Vol] 96 mg/dL 70-110 [facility] Work Phone: Serum or plasma potassium me asurement (moles/volume)on 10-14-2022 Potassium [Moles/Vol] 4.1 mmol/L 3.6-5.0 [facility] Work Phone: Serum or plasma protein raquel urement (mass/volume)on 10-14-2022 Protein [Mass/Vol] 6.8 g/dL 6.2-8.0 [facility] Work Phone: Serum or plasma sodium measu rement (moles/volume)on 10-14-2022 Sodium [Moles/Vol] 139 mmol/L 135-145 [facility] Work Phone: Serum or plasma total biliru bin measurement (mass/volume)on 10-14-2022 Bilirubin [Mass/Vol] 0.4 mg/dL 0.2-1.0 [facility] Work Phone: Serum or plasma total choles terol/cholesterol in HDL mass ratioon 10-14-2022 Cholesterol.total/Naya sterol in HDL [Mass ratio] 3.8 {ratio} Low 4.0-4.4 [facility] Work Phone: Serum or plasma triglyceride measurement (mass/volume)on 10-14-2022 Triglyceride [Mass/Vol] 204 mg/dL High <150 L [facility] [place] Work Phone: Serum or plasma urea nitroge n measurement (mass/volume)on 10-14-2022 Urea nitrogen [Mass/Vol] 10 mg/dL 7-20 [facility] Work Phone: WBC Auto (Bld) [#/Vol]on WBC (Bld) [#/Vol] 10.7 th/cmm High 4.4-10.5 [facility] Work Phone: Stress Reporton 10-01-2022 Stress Report [facility] Patient: WILBERT JOHNSON [address] : 1960 [place] [address] Location: CAT [phone] Unit #: [id number] Stress Report Jae Liriano DO, [facility] Dictation ID#: [id number] LEXISCAN CARDIOLITE STRESS TEST DATE OF TEST: 09/30/2002 ORDERING PHYSICIAN: Jae Liriano D.O., F.A.C.C. INDICATION: Shortness of breath. STUDY PROTOCOL: 0.4 mg LexiScan was given over 10 seconds, 40 seconds later, Cardiolite was given. The patient was sent for imaging. Hemodynamic electrocardiographic monitoring was performed. SYMPTOMS: Warm, flushed feeling and headache, resolved spontaneously. HEMODYNAMIC RESPONSE: Blood pressure was 106/73 with a heart rate of 79. In response to LexiScan, blood pressure dropped to 87/54, heart rate peaked at 108 beats per minute. ELECTROCARDIOGRAPHIC RESPONSE: Baseline electrocardiogram is sinus rhythm with nonspecific T-wave changes. In response to the LexiScan, electrocardiogram remained unchanged, did not meet the criteria for ischemia. ARRHYTHMIAS: No arrhythmia was noted. MYOCARDIAL PERFUSION IMAGING: Quality of the images was adequate. These images were obtained utilizing 10.6 and 34.2 mCi technetium sestamibi. Results revealed no evidence of reversible ischemia, however, TID of 1.39 with evidence of left ventricular cavity dilatation in response to LexiScan is a concern for possibility of multivessel coronary artery disease. Ejection fraction is 59%. CONCLUSION: 1. Study is abnormal. 2. Electrocardiogram did not meet the criteria for ischemia. 3. Perfusion images are abnormal with evidence of transient ischemic dilatation with a TID of 1.39. Although reversibility was not substantiated, abnormal TID is sometimes consistent with multivessel coronary artery disease and in those settings the patient could have balanced ischemia. If symptomatic, further evaluation is warranted. cc: Jae WATSON; Bethany Nesbitt APRN-HAND PA[employer] MIXER Dictated by: Jae Liriano DO, FACC on 10/01/22 0819 Transcribed by: Keisha Hernadez on 10/01/22 0947 Report Signed by: Jae Liriano DO [facility] on 10/01/22 1323 < > Normal [facility] CT Chest Without Cont [id number] n 09-30-2022 CT Chest Without Cont [id number] [facility] Radiology Department Patient: WILBERT JOHNSON [address] : 1960 Sex: Marisabel [place], [place] [address] Location: CAT [phone] Unit #: [id number] Ordering Phys: Bethany Nesbitt APRN, BRET Exam Date: 09/30/22 Exam: CT CT Chest Without Cont [id number] Result: See Report INDICATION: LUNG NODULE FOLLOW UP/SOB. FOLLOW UP TO RUNOFF AT [facility] IN 2017. STATES NO SURGERY. HX OF SMOKING X 40 YEARS, NOW VAPES. C/O SOB ON EXERTION. EXAMINATION: CT CHEST WITHOUT CONTRAST - CT Chest W/O Contrast Injection TECHNIQUE: Helically acquired images were obtained of the chest. A radiation dose optimization technique was used for this scan. IV Contrast dosage and agent: None. COMPARISON: 01/04/2017 FINDINGS: LUNGS, PLEURA AND LARGE AIRWAYS: Partially calcified nodule in the right lower lobe on image 51 of series 3 measures 7.2 x 9.1 mm and previously measured 4.4 x 6.5 mm. No pleural effusion or thickening. No pneumothorax. THYROID: No thyroid lesions. HEART AND PERICARDIUM: Heart size is normal. No pericardial effusion. CORONARY ARTERIES: Coronary artery calcification is not seen. VESSELS: Thoracic aorta is not dilated. MEDIASTINUM AND KUNAL: No mediastinal or hilar adenopathy. Esophagus is unremarkable. No hiatal hernia. UPPER ABDOMEN: No acute pathology. Cholecystectomy clips. Bilateral renal cysts, likely benign simple cyst. No required imaging follow-up needed given high likelihood of benign nature. BONES: No suspicious lytic or blastic abnormality. IMPRESSION: 1. Increased size of right lower lobe nodule with central calcification. Likely represents postinflammatory/benign nodule, however, given the change in size, a slow growing neoplasm is not excluded. For low-risk or high-risk patients consider a follow-up chest CT at 3 months. If unchanged consider an additional follow-up CT at 18-24 months. Alternatively (or additionally) PET/CT could be performed. Electronically Signed: Vicente Owen (Brooks), at 11:48 EDT Reading Location ID and State: [address] [place] [address] , Service support , cc: Bethany Nesbitt APRN-HAND PA[employer] MIXER Dictated by: Irineo Owen MD on 09/30/22 1148 Transcribed by: Irineo Owen on 09/30/22 1148 Report Signed by: Brayden BYRD,Irineo Odom on 09/30/22 1148 Normal [facility] EKG Monitoringon 09-22-2022 EKG Monitoring [facility] Patient: WILBERT JOHNSON [address] : 1960 [place], [place] [address] Location: [address] [phone] Unit #: [id number] Ordering Phys: Bethany Nesbitt APRN, [employer] PA[employer] M[employer] EKG Monitoring Epi Schaeffer MD, FACC, FACP Exam Date/Time Sep 21 2022 14:13:04 Test Reason : Blood Pressure : / mmHG Vent. Rate : 074 BPM Atrial Rate : 074 BPM P-R Int : 190 ms QRS Dur : 086 ms QT Int : 392 ms P-R-T Axes : 080 -29 055 degrees QTc Int : 435 ms Normal sinus rhythm Nonspecific ST abnormality Abnormal ECG When compared with ECG of 10-SEP-2020 08:01, No significant change was found Confirmed by EPI SCHAEFFER MD, FACC, FACP ([id number]) on 09/21/2022 10:57:30 PM Referred By: Bethany Nesbitt APRN-HAND PA[employer] MIXER Confirmed By:EPI SCHAEFFER MD FAC Dictated by: Epi Schaeffer MD, FACC, FACP on 09/21/22 1413 Transcribed by: [employer] M-AT on 09/21/22 2257 Report Signed by: Epi VILLAFANA FACP on 09/21/223 Normal [facility] Albumin [Mass/volume] in Ser um or Plasmaon 09-21-2022 Albumin [Mass/Vol] 4.0 g/dL 3.5-5.0 [facility] Work Phone: Basophils Auto (Bld) [#/Vol] on 09-21-2022 Basophils (Bld) [#/Vol] 100 /cmm 0-200 L [facility] [place] Work Phone: Basophils/100 WBC Auto (Bld) on 09-21-2022 Basophils/100 WBC (Bld) 0.9 % 0-2 L [facility] [place] Work Phone: Blood anion gapon 09-21-2022 Anion gap (Bld) [Moles/Vol] 9 mmol/L 4-12 [facility] Work Phone: Blood coagulation panelon Blood coagulation panel 100 /cmm 0-500 L [facility] [place] Work Phone: Blood hematocrit (volume fra ction)on 09-21-2022 Hematocrit (Bld) [Volume fraction] 47.1 % High 35.0-44.0 [facility] Work Phone: Blood hemoglobin measurement (mass/volume)on 09-21-2022 Hemoglobin (Bld) [Mass/Vol] 15.7 g/dL High 12.0-15.0 [facility] Work Phone: CBC with Differentialon 04-0 -2022 Abs Baso Count 100 /cmm Normal 0-200 [facility] Comment on above: Performed By: #### L 100.0000 ####Main Laboratory ([facility])[address] [phone] Nivar, MD Abs Eos Count 100 /cmm Normal 0-500 [facility] Comment on above: Performed By: #### L 100.0000 ####Main Laboratory ([facility])[address] [phone] Nivar, MD Abs Lymph Count 3000 /cmm Normal 3870-7278 [facility] Comment on above: Performed By: #### L 100.0000 ####Main Laboratory ([facility])[address] [phone] Nivar, MD Abs Hocking Count 1000 /cmm High 0-800 [facility] Comment on above: Performed By: #### L 100.0000 ####Main Laboratory ([facility])[address] [phone] Nivar, MD Abs Neut Count 7300 /cmm Normal 4249-0737 [facility] Comment on above: Performed By: #### L 100.0000 ####Main Laboratory ([facility])[address] [phone] Nivar, MD Basophils/100 WBC (Bld) 0.9 % Normal 0-2 L [facility] [place] Comment on above: Performed By: #### L 100.0000 ####Main [facility] ([facility])[address] [phone] Nivar, MD EOS-Auto Diff 1.2 % Normal 0-6 [facility] Comment on above: Performed By: #### L 100.0000 ####[facility] Laboratory ([facility])[address] [phone] Nivar, MD Erythrocyte distribution width (RBC) [Ratio] 13.5 % Normal 12.0-16.0 [facility] Comment on above: Performed By: #### L 100.0000 ####[facility] ([facility])[address] [phone] Nivar, MD Hematocrit (Bld) [Volume fraction] 47.1 % High 35.0-44.0 [facility] Comment on above: Performed By: #### L 100.0000 ####Main Laboratory ([facility])[address] [phone] Nivar, MD Hemoglobin (Bld) [Mass/Vol] 15.7 g/dL High 12.0-15.0 [facility] Comment on above: Performed By: #### L 100.0000 ####[facility] ([facility])[address] [phone] Nivar, MD Lymphocytes/100 WBC (Bld) 26.0 % Normal 15-45 [facility] Comment on above: Performed By: #### L 100.0000 ####[facility] ([facility])[address] [phone] Nivar, MD MCH (RBC) [Entitic mass] 30.4 pg Normal 27.5-33.0 [facility] Comment on above: Performed By: #### L 100.0000 ####[facility] ([facility])[address] [phone] Nivar, MD MCHC (RBC) [Mass/Vol] 33.3 g/dL Normal 33.0-36.0 [facility] Comment on above: Performed By: #### L 100.0000 ####Main Laboratory ([facility])[address], [place] [phone] Nivar, MD MCV 91.2 CU DEANNA Normal 80-97 [facility] Comment on above: Performed By: #### L 100.0000 ####[facility] ([facility])[address] [phone] Nivar, MD Hocking- Auto Diff 8.6 % Normal 2-10 [facility] Comment on above: Performed By: #### L 100.0000 ####[facility] ([facility])[address] [phone] Nivar, MD Neut-Auto Diff 63.3 % Normal 40-70 [facility] Comment on above: Performed By: #### L 100.0000 ####[facility] ([facility])[address] [phone] Nivar, MD NRBC-Auto 0.1 /100 WBC Normal <1 [facility] Comment on above: Performed By: #### L 100.0000 ####[facility] ([facility])[address] [phone] Nivar, MD Platelet Count 314 th/cmm Normal 150-400 [facility] Comment on above: Performed By: #### L 100.0000 ####[facility] ([facility])[address] [phone] Nivar, MD RBC 5.17 mil/cmm High 4.00-5.10 [facility] Comment on above: Performed By: #### L 100.0000 ####[facility] ([facility])[address] [phone] Nivar, MD WBC 11.5 th/cmm High 4.4-10.5 [facility] Comment on above: Performed By: #### L 100.0000 ####[facility] ([facility])[address] [phone] Nivar, MD Cholesterol in LDL Direct as say [Mass/Vol]on 09-21-2022 Cholesterol in LDL [Mass/Vol] 176 mg/dL High <100 [facility] Work Phone: Comment on above: The National Cholest jovany Education Program (NCEP) has set the following guidelines (reference values) for cholesterol, LDL: Desirable (optimal): <100 mg/dL Low Risk (near optimal): 100-129 mg/dL Borderline high: 130-159 mg/dL High: 160-189 mg/dL Very high: >=190 mg/dL Cholesterol in VLDL Calc [Ma ss/Vol]on 09-21-2022 Cholesterol in VLDL [Mass/Vol] 38 mg/dL <39 [facility] Work Phone: Comprehensive Metabolic Pane parth 09-21-2022 Albumin [Mass/Vol] 4.0 g/dL Normal 3.5-5.0 [facility] Comment on above: Order Comment: Is Pa tient Fasting? Yes Performed By: #### L 400.5100, L400.0065, L400.0400, L404.7150, L400.0076 #### Main Laboratory ([facility]) [address] [place] [address] Herrera White MD Alk Phos 100 IU/L Normal 39-118 [facility] Comment on above: Order Comment: Is Pa tient Fasting? Yes Performed By: #### L 400.5100, L400.0065, L400.0400, L404.7150, L400.0076 #### Main Laboratory ([facility]) [address] [place] [address] Herrera White MD ALT [Catalytic activity/Vol] 36 U/L Normal 10-40 [facility] Comment on above: Order Comment: Is Pa tient Fasting? Yes Performed By: #### L 400.5100, L400.0065, L400.0400, L404.7150, L400.0076 #### Main Laboratory ([facility]) [address] [place] [address] Herrera White MD AST [Catalytic activity/Vol] 58 U/L High 15-41 [facility] Comment on above: Order Comment: Is Pa tient Fasting? Yes Performed By: #### L 400.5100, L400.0065, L400.0400, L404.7150, L400.0076 #### [facility] ([facility] [facility]) [address] [place] [address] Herrera White MD Bili,Total 0.5 mg/dL Normal 0.2-1.0 [facility] Comment on above: Order Comment: Is Pa tient Fasting? Yes Performed By: #### L 400.5100, L400.0065, L400.0400, L404.7150, L400.0076 #### Main Laboratory ([facility]) [address] [place] [address] Herrera White MD Calcium [Mass/Vol] 8.80 mg/dL Normal 8.8-10.5 [facility] Comment on above: Order Comment: Is Pa tient Fasting? Yes Performed By: #### L 400.5100, L400.0065, L400.0400, L404.7150, L400.0076 #### Main Laboratory ([facility]) [address] [place] [address] Herrera White MD Chloride [Moles/Vol] 99 mmol/L Low 101-111 [facility] Comment on above: Order Comment: Is Pa tient Fasting? Yes Performed By: #### L 400.5100, L400.0065, L400.0400, L404.7150, L400.0076 #### Main Laboratory ([facility]) [address] [place] [id number] Herrera White MD CO2 [Moles/Vol] 28 mmol/L Normal 21-32 [facility] Comment on above: Order Comment: Is Pa tient Fasting? Yes Performed By: #### L 400.5100, L400.0065, L400.0400, L404.7150, L400.0076 #### Main Laboratory ([facility]) [address] [place] [address] Herrera White MD Creatinine [Mass/Vol] 0.86 mg/dL Normal 0.60-1.30 [facility] Comment on above: Order Comment: Is Pa tient Fasting? Yes Performed By: #### L 400.5100, L400.0065, L400.0400, L404.7150, L400.0076 #### Main Laboratory ([facility]) [address] [place] [address] Herrera White MD GFR Calculation > 60 Normal [facility] Comment on above: Order Comment: Is Pa tient Fasting? Yes Result Comment: Health Underwriter nirmal Kidney Disease stages by NKDF Stage eGFR I >90 II 60-89 III 30-59 IV 15-29 V <15 or dialysis AGE(years) AVERAGE GFR 60-69 85 ml/min/1.73 square meters Note:This result is normalized to 1.73 square meter body surface area. Height and weight are not factored. Performed By: #### L 400.5100, L400.0065, L400.0400, L404.7150, L400.0076 #### Main Laboratory ([facility]) [address] [place] [address] Herrera White MD Glucose [Mass/Vol] 97 mg/dL Normal 70-110 [facility] Comment on above: Order Comment: Is Pa tient Fasting? Yes Result Comment: *Thi s reference range applies to fasting specimens only. Performed By: #### L 400.5100, L400.0065, L400.0400, L404.7150, L400.0076 #### Main Laboratory ([facility]) [address] [place] [address] Herrera White MD Potassium [Moles/Vol] 4.5 mmol/L Normal 3.6-5.0 [facility] Comment on above: Order Comment: Is Pa tient Fasting? Yes Performed By: #### L 400.5100, L400.0065, L400.0400, L404.7150, L400.0076 #### Main Laboratory ([facility]) [address] [place] [address] Herrera White MD Protein [Mass/Vol] 7.6 g/dL Normal 6.2-8.0 [facility] Comment on above: Order Comment: Is Pa tient Fasting? Yes Performed By: #### L 400.5100, L400.0065, L400.0400, L404.7150, L400.0076 #### Main Laboratory ([facility]) [address] [place] [address] Herrera White MD Sodium [Moles/Vol] 136 mmol/L Normal 135-145 [facility] Comment on above: Order Comment: Is Pa tient Fasting? Yes Performed By: #### L 400.5100, L400.0065, L400.0400, L404.7150, L400.0076 #### Main Laboratory ([facility]) [address] [place] [address] Herrera White MD Urea nitrogen [Mass/Vol] 10 mg/dL Normal 7-20 [facility] Comment on above: Order Comment: Is Pa tient Fasting? Yes Performed By: #### L 400.5100, L400.0065, L400.0400, L404.7150, L400.0076 #### Main Laboratory ([facility]) [address] [place] [id number] Herrera White MD Albumin/Globulin [Mass ratio] 1.1 {ratio} Low 1.5-2.5 [facility] Comment on above: Order Comment: Is Pa tient Fasting? Yes Performed By: #### L 400.5100, L400.0065, L400.0400, L404.7150, L400.0076 #### Main Laboratory ([facility]) [address] [place] [address] Herrera White MD Anion gap [Moles/Vol] 9 mmol/L Normal 4-12 [facility] Comment on above: Order Comment: Is Pa tient Fasting? Yes Performed By: #### L 400.5100, L400.0065, L400.0400, L404.7150, L400.0076 #### Main Laboratory ([facility]) [address] [place] [address] Herrera White MD Echocardiographyon Echocardiography [facility] Patient: WILBERT JOHNSON [address] : 1960 [place], [place] [address] Location: [facility] [phone] Unit #: [id number] Ordering Phys: Bethany Nesbitt APRN, HAND PAINT MIXER Echocardiography Epi Schaeffer MD, FACC, FACP Transthoracic Echocardiography Report (TTE) Demographics Patient Name ALEX ATKINS Gender Female PAZ Patient [id number] Race Unknown Number Ethnicity Account [id number] Room Number OP Number Corporate ID Date of Study 09/21/2022 Referring HINO; Number Physician Delicia Joseph; Date of 1960 Therapeutic Assistant Yisel Nam, [facility], [facility]; Age 62 year(s) Interpreting HINO; Physician Analisa BYRD FACC FACP, Epi Latif; Procedure Type of Study TTE procedure Procedure Date Date: 09/21/2022 Start: 01:44 PM Patient Status: Routine OP Indications 1) Aortic Insufficiency History:COPD, Anxiety, Fibromyalgia, Vit. D Deficiency, GERD, Hypomagnesemia, Height: 64 inches Weight: 221 pounds BSA: 2.04 m2 BP: 126/80 mmHg Conclusions Summary Technically adequate study. Ejection fraction is visually estimated at 55-60%. Mild concentric left ventricular hypertrophy. Normal LV size and function. Normal LV diastolic function. Normal right ventricular size and function. RV S' measures 10.1 cm/s. Normal size left atrium. The LA ESV Index (BP) is 15.2 mL/m2. No evidence of atrial septal defect. Normal size right atrium. The aortic valve is trileaflet with good leaflet separation. Trivial aortic regurgitation with central jet is noted. No evidence of mitral regurgitaton. No evidence of mitral valve stenosis. No mitral valve prolapse noted. No evidence of tricuspid regurgitation. No evidence of tricuspid stenosis. No evidence of pulmonic valve stenosis. No evidence of any pulmonic regurgitation. Pulmonary Acceleration Time 95 msec. No evidence of pericardial effusion. IVC appears normal. Signature Electronically signed by Analisa [facility](Interpreting Physician) on 09/21/2022 04:39 PM M-Mode Measurements (in cm) LVIDd (n=3.5-5.7): 5.1 cm Aortic Valve Opening (n=1.5-2.6): 2.1 LVIDs (n=2.2-4.0): 3.8 cm cm Post. Wall Thickness (n=0.6-1.1): 1 RV Supine (n=0.7-2.3): 2.5 cm cm AOR Diam (n=2.0-3.7): 3 cm Septal Thickness (n=0.6-1.1): 1.2 cm Fractional Shortening (n>25%):25 % Doppler - Max Velocity (cm/s) AV: 190 cm/s(a=534-881) Aortic Valve Area (Continuity):2.04 cm MV:77.7 cm/s(n=60-130) (n=30-70) PV:105 cm/s(n=60-90) Findings Left Ventricle Ejection fraction is visually estimated at 55-60%. Mild concentric left ventricular hypertrophy. Normal LV size and function. Normal LV diastolic function. Right Ventricle Normal right ventricular size and function. RV S' measures 10.1 cm/s. Left Atrium Normal size left atrium. The LA ESV Index (BP) is 15.2 mL/m2. No evidence of atrial septal defect. Right Atrium Normal size right atrium. Aortic Valve The aortic valve is trileaflet with good leaflet separation. Trivial aortic regurgitation with central jet is noted. Mitral Valve No evidence of mitral regurgitaton. No evidence of mitral valve stenosis. No mitral valve prolapse noted. Tricuspid Valve No evidence of tricuspid regurgitation. No evidence of tricuspid stenosis. Pulmonic Valve No evidence of pulmonic valve stenosis. No evidence of any pulmonic regurgitation. Pulmonary Acceleration Time 95 msec. Pericardial Effusion No evidence of pericardial effusion. Miscellaneous IVC appears normal. Valves Mitral Valve Peak E-Wave: 77.7 cm/s Peak A-Wave: 85.7 cm/s P1/2t: 55 msec E/A Ratio: 0.91 Peak Gradient: 2.41 mmHg Area (PHT): 4 cm Tissue Doppler E' velocity (Lat)7.29 cm/s E/E' ratio10.66 Aortic Valve Peak Velocity: 190 cm/s Mean Velocity: 131 cm/s Peak Gradient: 14.44 mmHg Mean Gradient: 8 mmHg Area (continuity): 2.04 cm AV VTI: 38.4 cm Cusp Separation: 2.1 cm LVOT VTI24.9 cm/s Pulmonic Valve Peak Velocity: 105 cm/s Peak Gradient: 4.41 mmHg Acceleration Time: 95 msec LVOT Peak Velocity: 117 cm/s Mean Velocity: 77.4 cm/s Peak Gradient: 5 mmHg Mean Gradient: 3 mmHg LVOT Diameter: 2 cm LVOT VTI: 24.9 cm Structures Left Atrium LA Dimension: 3.5 cm LA Area: 16.5 cm LA Volume/Index: 40.4 ml /19.8 m Left Ventricle Diastolic Dimension: 5.1 cm Systolic Dimension: 3.8 cm Septum Diastolic: 1.2 cm PW Diastolic: 1 cm FS: 25 % EF (MM-Teich):50 % LV ESV/LV ESV Index: 54.9 ml/26.9 m LV EDV/LV EDV Index: 133 ml EF Simpsons (A4C):58.7 % LVOT Diameter: 2 cm Right Ventricle Diastolic Dimension: 2.5 cm Miscel (more content not included)... Normal [facility] Eosinophils/100 WBC Auto (Bl d)on 09-21-2022 Eosinophils/100 WBC (Bld) 1.2 % 0-6 [facility] Work Phone: Erythrocyte distribution wid th ratioon 09-21-2022 Erythrocyte distribution width (RBC) [Ratio] 13.5 % 12.0-16.0 [facility] Work Phone: Lipid Panelon 09-21-2022 Cholesterol [Mass/Vol] 237 mg/dL High <200 [facility] Comment on above: Order Comment: Is Pa tient Fasting? Yes Performed By: #### L 400.5100, L400.0065, L400.0400, L404.7150, L400.0076 #### Main Laboratory ([facility]) [address] [place] [id number] Herrera White MD Cholesterol in HDL [Mass/Vol] 56 mg/dL Normal [facility] Comment on above: Order Comment: Is Pa tient Fasting? Yes Result Comment: The National Cholesterol Education Program (NCEP) has set the following guidelines (reference values) for cholesterol, HDL: Low: <40 mg/dL Normal: 40-60 mg/dL High: >60 mg/dL Performed By: #### L 400.5100, L400.0065, L400.0400, L404.7150, L400.0076 #### Main Laboratory ([facility]) [address] [place] [address] Herrera White MD Cholesterol in LDL [Mass/Vol] 176 mg/dL High [facility] Comment on above: Order Comment: Is Pa tient Fasting? Yes Result Comment: The National Cholesterol Education Program (NCEP) has set the following guidelines (reference values) for cholesterol, LDL: Desirable (optimal): <100 mg/dL Low Risk (near optimal): 100-129 mg/dL Borderline high: 130-159 mg/dL High: 160-189 mg/dL Very high: >=190 mg/dL Performed By: #### L 400.5100, L400.0065, L400.0400, L404.7150, L400.0076 #### Main Laboratory ([facility]) [address] [place] [address] Herrera White MD Triglyceride [Mass/Vol] 191 mg/dL High <150 L [facility] [place] Comment on above: Order Comment: Is Pa tient Fasting? Yes Performed By: #### L 400.5100, L400.0065, L400.0400, L404.7150, L400.0076 #### Main Laboratory ([facility]) [address] [place] [address] Herrera Whtie MD Chol/HDL Risk 4.2 Normal 4.0-4.4 [facility] Comment on above: Order Comment: Is Pa tient Fasting? Yes Performed By: #### L 400.5100, L400.0065, L400.0400, L404.7150, L400.0076 #### Main Laboratory ([facility]) [address] [place] [address] Herrera White MD Cholesterol in VLDL [Mass/Vol] 38 mg/dL Normal <39 [facility] Comment on above: Order Comment: Is Pa tient Fasting? Yes Performed By: #### L 400.5100, L400.0065, L400.0400, L404.7150, L400.0076 #### Main Laboratory ([facility]) [address] [place] [address] Herrera White MD dLDL/HDL RISK 3.1 Normal <3.1 [facility] Comment on above: Order Comment: Is Pa tient Fasting? Yes Performed By: #### L 400.5100, L400.0065, L400.0400, L404.7150, L400.0076 #### Main Laboratory ([facility]) [address] [place] [address] Herrera White MD Lymphocytes/100 WBC Auto (Bl d)on 09-21-2022 Lymphocytes/100 WBC (Bld) 26.0 % 15-45 [facility] Work Phone: MCH Auto (RBC) [Entitic mass ]on 09-21-2022 MCH (RBC) [Entitic mass] 30.4 pg 27.5-33.0 [facility] Work Phone: MCHC Auto (RBC) [Mass/Vol]on 09-21-2022 MCHC (RBC) [Mass/Vol] 33.3 g/dL 33.0-36.0 [facility] Work Phone: MCV Auto (RBC) [Entitic vol] on 09-21-2022 MCV (RBC) [Entitic vol] 91.2 CU DEANNA 80-97 [facility] Work Phone: Magnesiumon 09-21-2022 Magnesium [Mass/Vol] 1.9 mg/dL Normal 1.8-2.5 [facility] Comment on above: Order Comment: Is Pa tient Fasting? Yes Performed By: #### L 400.5100, L400.0065, L400.0400, L404.7150, L400.0076 #### Main Laboratory ([facility]) [address] [place] [address] Herrera White MD Monocytes Auto (Bld) [#/Vol] on 09-21-2022 Monocytes (Bld) [#/Vol] 1000 /cmm High 0-800 L [facility] [place] Work Phone: Monocytes/100 WBC Auto (Bld) on 09-21-2022 Monocytes/100 WBC (Bld) 8.6 % 2-10 L [facility] [place] Work Phone: [phone] Neutrophils/100 WBC Auto (Bl d)on 09-21-2022 Neutrophils/100 WBC (Bld) 63.3 % 40-70 [facility] Work Phone: No Panel Informationon 09-21 Absolute Lymphocytes (auto) 3000 /cmm [phone] [facility] Work Phone: Absolute Neutrophils (auto) 7300 /cmm [phone] [facility] Work Phone: Glomerular Filtration Rate Calc > 60 >60 [facility] Work Phone: Comment on above: AGE(years) AVERAGE G FR 60-69 85 ml/min/1.73 square metersNote:This result is normalized to 1.73 square meter body surface area. Height and weight are not factored.Chronic Kidney Disease stages by NKDFStage eGFR I >90 II 60-89 III 30-59 IV 15-29 V <15 or dialysis Nucleated RBC Auto (Bld) [#/ Vol]on 09-21-2022 Nucleated RBC (Bld) [#/Vol] 0.1 /100 WBC <1 [facility] Work Phone: Platelets Auto (Bld) [#/Vol] on 09-21-2022 Platelets (Bld) [#/Vol] 314 th/cmm 150-400 L [facility] [place] Work Phone: RBC Auto (Bld) [#/Vol]on RBC (Bld) [#/Vol] 5.17 mil/cmm High 4.00-5.10 [facility] Work Phone: Serum or plasma alanine garcia otransferase measurement (enzymatic activity/volume)on 09-21-2022 ALT [Catalytic activity/Vol] 36 U/L 10-40 [facility] Work Phone: Serum or plasma albumin/glob ulin mass ratioon 09-21-2022 Albumin/Globulin [Mass ratio] 1.1 {ratio} Low 1.5-2.5 [facility] Work Phone: Serum or plasma alkaline lorena sphatase measurement (enzymatic activity/volume)on 09-21-2022 ALP [Catalytic activity/Vol] 100 U/L 39-118 [facility] Work Phone: Serum or plasma aspartate am inotransferase measurement (enzymatic activity/volume)on 09-21-2022 AST [Catalytic activity/Vol] 58 U/L High 15-41 [facility] Work Phone: Serum or plasma calcium raquel urement (mass/volume)on 09-21-2022 Calcium [Mass/Vol] 8.80 mg/dL 8.8-10.5 [facility] Work Phone: Serum or plasma carbon dioxi de, total measurement (moles/volume)on 09-21-2022 CO2 [Moles/Vol] 28 mmol/L 21-32 [facility] Work Phone: Serum or plasma chloride pedro surement (moles/volume)on 09-21-2022 Chloride [Moles/Vol] 99 mmol/L Low 101-111 [facility] Work Phone: Serum or plasma cholesterol in HDL measurement (mass/volume)on 09-21-2022 Cholesterol in HDL [Mass/Vol] 56 mg/dL >40 [facility] Work Phone: Comment on above: The National Cholest jovany Education Program (NCEP) has set the following guidelines (reference values) for cholesterol, HDL: Low: <40 mg/dL Normal: 40-60 mg/dL High: >60 mg/dL Serum or plasma cholesterol in LDL/cholesterol in HDL mass ratioon 09-21-2022 Cholesterol in LDL/Cholesterol in HDL [Mass ratio] 3.1 {ratio} <3.1 [facility] Work Phone: Serum or plasma cholesterol measurement (mass/volume)on 09-21-2022 Cholesterol [Mass/Vol] 237 mg/dL High <200 [facility] Work Phone: Serum or plasma creatinine m easurement (mass/volume)on 09-21-2022 Creatinine [Mass/Vol] 0.86 mg/dL 0.60-1.30 [facility] Work Phone: Serum or plasma glucose raquel urement (mass/volume)on 09-21-2022 Glucose [Mass/Vol] 97 mg/dL 70-110 [facility] Work Phone: Comment on above: *This reference rang e applies to fasting specimens only. Serum or plasma magnesium me asurement (mass/volume)on 09-21-2022 Magnesium [Mass/Vol] 1.9 mg/dL 1.8-2.5 [facility] Work Phone: Serum or plasma potassium me asurement (moles/volume)on 09-21-2022 Potassium [Moles/Vol] 4.5 mmol/L 3.6-5.0 [facility] Work Phone: Serum or plasma protein raquel urement (mass/volume)on 09-21-2022 Protein [Mass/Vol] 7.6 g/dL 6.2-8.0 [facility] Work Phone: Serum or plasma sodium measu rement (moles/volume)on 09-21-2022 Sodium [Moles/Vol] 136 mmol/L 135-145 [facility] Work Phone: Serum or plasma total biliru bin measurement (mass/volume)on 09-21-2022 Bilirubin [Mass/Vol] 0.5 mg/dL 0.2-1.0 [facility] Work Phone: Serum or plasma total choles terol/cholesterol in HDL mass ratioon 09-21-2022 Cholesterol.total/Naya sterol in HDL [Mass ratio] 4.2 {ratio} 4.0-4.4 [facility] Work Phone: Serum or plasma total combin ed vitamin D and metabolites measurement (mass/volume)on 09-21-2022 Vitamin D+Metabolites [Mass/Vol] 48.20 ng/mL 30.00-100. 00 [facility] Work Phone: Comment on above: Optimal values are e stablished by the Clinical Guidelines Subcommittee of the Endocrine Society Task Force. (Journal of Clinical Endocrinology & Metabolism,2011;96)Status Vitamin D Concentration Range------- Deficient <20Insufficient 20 - 30Sufficient 30 - 100 Serum or plasma triglyceride measurement (mass/volume)on 09-21-2022 Triglyceride [Mass/Vol] 191 mg/dL High <150 L [facility] [place] Work Phone: Serum or plasma urea nitroge n measurement (mass/volume)on 09-21-2022 Urea nitrogen [Mass/Vol] 10 mg/dL 7-20 [facility] Work Phone: TSH DL <= 0.005 mIU/L Qnon 0 09-21-2022 TSH Qn 0.971 m[IU]/L 0.490-4.67 0 [facility] Work Phone: TSH reflex Free T4on 023 TSH reflex Free T4 0.971 mcIU/mL Normal 0.490-4. 67 0 [facility] Comment on above: Order Comment: Is Pa tient Fasting? Yes Performed By: #### L 400.5100, L400.0065, L400.0400, L404.7150, L400.0076 ####Main Laboratory ([facility])[address], [place] [phone] Nivar, MD Vitamin D,25-hydroxy (Total) on 09-21-2022 25(OH) Vitamin D,Total 48.20 ng/mL Normal 30.00 -100. 00 [facility] Comment on above: Order Comment: Is Pa tient Fasting? Yes Result Comment: Opti mal values are established by the Clinical Guidelines Subcommittee of the Endocrine Society Task Force. (Journal of Clinical Endocrinology & Metabolism,2011;96) Status Vitamin D Concentration Range ------- Deficient <20 Insufficient 20 - 30 Sufficient 30 - 100 Performed By: #### L 400.5100, L400.0065, L400.0400, L404.7150, L400.0076 #### Main Laboratory ([facility]) [address] [place] [address] Herrera White MD WBC Auto (Bld) [#/Vol]on WBC (Bld) [#/Vol] 11.5 th/cmm High 4.4-10.5 [facility] Work Phone: Genital cultureon 09-06-2022 Genital culture ORGANISM 1: Streptoc occus anginosus Amount of growth Many Comments Many Normal genital myrna also isolated Streptococcus anginosus: REACTION Ampicillin <=0.25 S Cefotaxime <=0.12 S Ceftriaxone <=0.12 S Penicillin <=0.06 S Vancomycin 0.25 S Normal [facility] Comment on above: Order Comment: Is Pa tient N Performed By: #### M 140.0500 ####Main Laboratory ([facility])[address], [place] [phone] Nivar, MD Urine cultureon 08-15-2022 Bacteria identified Cx Nom (U) No growth(<10,000 CFU/ml)of urinary tract pathogens. Myrna present are not the usual etiologic agents of a urinary tract infection and probably represent vaginal,urethral, or skin myrna. Contact Microbiology at extension [phone] if further information is needed. ORGANISM 1: Mixed myrna- 3 species present [place] count >100,000 CFU/ml Normal [facility] Comment on above: Performed By: #### M 120.0000 ####Main Laboratory ([facility])[address], [place] [phone] Nivar, MD Urine cultureon 07-30-2022 Bacteria identified Cx Nom (U) No growth(<10,000 CFU/ml)of urinary tract pathogens. Myrna present are not the usual etiologic agents of a urinary tract infection and probably represent vaginal,urethral, or skin myrna. Contact Microbiology at extension [phone] if further information is needed. ORGANISM 1: Mixed myrna, 5 species present [place] count >100,000 CFU/ml Normal [facility] Comment on above: Performed By: #### M 120.0000 #### Main Laboratory ([facility]) [address] [place] [address] Herrera White MD Vitamin B1on 12-11-2020 Vitamin B1 114 nmol/L Normal 70-180 [facility] Comment on above: Result Comment: (NOT E) INTERPRETIVE INFORMATION: Vitamin B1, Whole Blood This assay measures the concentration of thiamine diphosphate (TDP), the primary active form of vitamin B1. Approximately 90 percent of vitamin B1 present in whole blood is TDP. Thiamine and thiamine monophosphate, which comprise the remaining 10 percent, are not measured. This test was developed and its performance characteristics determined by [email or web address]. It has not been cleared or approved by the [place] Food and Drug Administration. This test was performed in a CLIA certified laboratory and is intended for clinical purposes. Performed By: [email or web address] [address] [place] [id number] Elevator Attendant: Marisela Ruiz MD Performed By: #### F T4, CP, CDP, LIPR, B12, BNP, TSH, VD25, MG, TROPI #### [address] [address] Publicity Agent: Ernesto Miranda MD #### AVITB1 #### [address] [phone] Publicity Agent: Prasanth Haywood MD CBC with Diffon 12-05-2020 Abs. Basophil 0.00 k/uL Normal 0.0-0.2 [facility] Comment on above: Performed By: #### F T4, CP, CDP, LIPR, B12, BNP, TSH, VD25, MG, TROPI #### [address] [address] Publicity Agent: Ernesto Miranda MD #### AVITB1 #### [address] [phone] Publicity Agent: Prasanth Haywood MD Abs.Imm.Granulocyte 0.00 k/uL Normal 0.00-0.30 [facility] Comment on above: Performed By: #### F T4, CP, CDP, LIPR, B12, BNP, TSH, VD25, MG, TROPI #### [address] [address] Publicity Agent: Ernesto Miranda MD #### AVITB1 #### [facility] [address] [place], [place] [id number] Publicity Agent: Prasanth Haywood MD Abs.Neutrophil (Seg) 3.88 k/uL Normal 1.8-7.7 [facility] Comment on above: Performed By: #### F T4, CP, CDP, LIPR, B12, BNP, TSH, VD25, MG, TROPI #### [facility] [address] [place] [id number] Publicity Agent: Ernesto Miranda MD #### AVITB1 #### [facility] [address] [place], [place] [phone] Publicity Agent: Prasanth Haywood MD Basophils/100 WBC (Bld) 0 % Normal 0-2 [facility] Comment on above: Performed By: #### F T4, CP, CDP, LIPR, B12, BNP, TSH, VD25, MG, TROPI #### [address] [address] Publicity Agent: Ernesto Miranda MD #### [email or web address] #### [facility] [address] [place], [place] [phone] Publicity Agent: Prasanth Haywood MD Eosinophils (Bld) [#/Vol] 0.00 10*3/uL Normal 0.0-0.4 [facility] Comment on above: Performed By: #### F T4, CP, CDP, LIPR, B12, BNP, TSH, VD25, MG, TROPI #### [address] [address] Publicity Agent: Ernesto Miranda MD #### [email or web address] #### [facility] [address] [place], [place] [phone] Publicity Agent: Prasanth Haywood MD Eosinophils/100 WBC (Bld) 0 % Low 1-4 [facility] Comment on above: Performed By: #### F T4, CP, CDP, LIPR, B12, BNP, TSH, VD25, MG, TROPI #### [address] [phone] Publicity Agent: Ernesto Miranda MD #### [email or web address] #### [address] [address] Publicity Agent: Prasanth Haywood MD Immature granulocytes/100 WBC (Bld) 0 % Normal 0 [facility] Comment on above: Performed By: #### F T4, CP, CDP, LIPR, B12, BNP, TSH, VD25, MG, TROPI #### [address] [address] Publicity Agent: Ernesto Miranda MD #### AVITB1 #### [address] [phone] Publicity Agent: Prasanth Haywood MD Lymphocytes (Bld) [#/Vol] 6.12 10*3/uL High 1.0-4.8 [facility] Comment on above: Result Comment: R/O Chronic Lymphoproliferative Disorder, recommend peripheral blood Flow Cytometry, if clinically indicated. Performed By: #### F T4, CP, CDP, LIPR, B12, BNP, TSH, VD25, MG, TROPI #### [address] [address] Publicity Agent: Ernesto Miranda MD #### AVITB1 #### [address] [phone] Publicity Agent: Prasanth Haywood MD Lymphocytes/100 WBC (Bld) 60 % High 24-44 [facility] Comment on above: Performed By: #### F T4, CP, CDP, LIPR, B12, BNP, TSH, VD25, MG, TROPI #### [address] [phone] Publicity Agent: Ernesto Miranda MD #### [email or web address] #### [facility] [address] [place], [place] [phone] Publicity Agent: Prasanth Haywood MD Monocytes (Bld) [#/Vol] 0.20 10*3/uL Normal 0.1-0.8 [facility] Comment on above: Performed By: #### F T4, CP, CDP, LIPR, B12, BNP, TSH, VD25, MG, TROPI #### [address] [address] Publicity Agent: Ernesto Miranda MD #### [email or web address] #### [facility] [address] [place], [place] [phone] Publicity Agent: Prasanth Haywood MD Monocytes/100 WBC (Bld) 2 % Normal 1-7 [facility] Comment on above: Performed By: #### F T4, CP, CDP, LIPR, B12, BNP, TSH, VD25, MG, TROPI #### [address] [address] Publicity Agent: Ernesto Miranda MD #### [email or web address] #### [facility] [address] [place], [place] [phone] Publicity Agent: Prasanth Haywood MD Morphology Yeison (Bld) [Interp] Normal Normal [facility] Comment on above: Performed By: #### F T4, CP, CDP, LIPR, B12, BNP, TSH, VD25, MG, TROPI #### [address] [address] Publicity Agent: Ernesto Miranda MD #### [email or web address] #### [facility] [address] [place], [place] [phone] Publicity Agent: Prasanth Haywood MD Neutrophil (Seg) 38 % Normal 36-66 [facility] Comment on above: Performed By: #### F T4, CP, CDP, LIPR, B12, BNP, TSH, VD25, MG, TROPI #### [facility] [address] [place] [address] Publicity Agent: Ernesto Miranda MD #### [email or web address] #### [facility] [address] [place], [place] [phone] Publicity Agent: Prasanth Haywood MD Brain Natri. Peptideon 12-04 BNP Interpretation Pro-BNP Reference Range: Normal [facility] Comment on above: Result Comment: Rule Out: <300 Galvan Zone: Age <50 300-450 Age 50-75 300-900 Age >75 300-1800 Usually represents mild to moderate HF but other cardiopulmonary causes cannot be ruled out. Rule In: Age <50 >450 Age 50-75 >900 Age >75 >1800 Performed By: #### F T4, CP, CDP, LIPR, B12, BNP, TSH, VD25, MG, TROPI #### [facility] [address] [place] [address] Publicity Agent: Ernesto Miranda MD #### [email or web address] #### [facility] [address] [place] [address] Publicity Agent: Prasanth Haywood MD Natriuretic peptide B (Bld) [Mass/Vol] 143 pg/mL Normal <300 [facility] Comment on above: Result Comment: Pro- BNP results cannot be compared to BNP results. Performed By: #### F T4, CP, CDP, LIPR, B12, BNP, TSH, VD25, MG, TROPI #### [facility] [address] [place] [address] Publicity Agent: Ernesto Miranda MD #### [email or web address] #### [facility] [address] [place] [address] Publicity Agent: Prasanth Haywood MD Brain Natriuretic PeptideOrd ered By: Shazia Bhatti on 12-04-2020 BNP Interpretation Pro-BNP Reference Range: [facility] [employer] Work Phone: Comment on above: Rule Out: <300 Galvan Zone: Age <50 300-450 Age 50-75 300-900 Age >75 300-1800 Usually represents mild to moderate HF but other cardiopulmonary causes cannot be ruled out. Rule In: Age <50 >450 Age 50-75 >900 Age >75 >1800 Natriuretic peptide B (Bld) [Mass/Vol] 143 pg/mL <300 [employer] Phone: Comment on above: Pro-BNP results nick ot be compared to BNP results. CBC Auto DifferentialOrdered By: Shazia Bhatti on 12-04-2020 Absolute Eos # 0.00 [employer] Phone: Absolute Immature Granulocyte 0.00 [employer] Phone: Absolute Lymph # 6.12 High [employer] Phone: Comment on above: R/O Chronic Lymphopr oliferative Disorder, recommend peripheral blood Flow Cytometry, if clinically indicated. Absolute [place] # 0.20 [employer] Phone: Basophils (Bld) [#/Vol] 0.00 10*3/uL [employer] Phone: Basophils/100 WBC (Bld) 0 % 0 - 2 % [employer] Phone: Differential Type NOT REPORTED [employer] Phone: Eosinophils/100 WBC (Bld) 0 % Low 1 - 4 % [employer] Phone: Hematocrit (Bld) [Volume fraction] 48.3 % High 36.3 - 47.1 % [employer] Phone: Hemoglobin.gastrointest inal spec 1 Ql (Stl) 15.3 g/dL High 11.9 - 15.1 g/dL [employer] Phone: Immature granulocytes/100 WBC (Bld) 0 % 0 [employer] Phone: Interpretation and review of laboratory results Abnormal [employer] Phone: Lymphocytes/100 WBC (Bld) 60 % High 24 - 44 % [employer] Phone: MCH (RBC) [Entitic mass] 29.4 pg 25.2 - 33.5 pg [employer] Phone: MCHC (RBC) [Mass/Vol] 31.7 g/dL 28.4 - 34.8 g/dL [employer] Phone: MCV (RBC) [Entitic vol] 92.7 fL 82.6 - 102.9 fL [employer] Phone: Monocytes/100 WBC (Bld) 2 % 1 - 7 % [employer] Phone: Morphology Yeison (Bld) [Interp] Normal [employer] Phone: NRBC Automated 0.0 0.0 per 100 WBC [employer] Phone: Platelet distribution width (Bld) [Ratio] 12.8 % 11.8 - 14.4 % [employer] Phone: Platelet Estimate NOT REPORTED [employer] Phone: Platelet mean volume (Bld) [Entitic vol] 10.2 fL 8.1 - 13.5 fL [employer] Phone: Platelets (Bld) [#/Vol] 358 10*3/uL [employer] Phone: RBC (Bld) [#/Vol] 5.21 10*6/uL High 3.95 - 5.11 m/uL [employer] Phone: RBC (Bld) [#/Vol] NOT REPORTED [employer] Phone: Segmented neutrophils/100 WBC (Bld) 38 % 36 - 66 % [employer] Phone: Segs Absolute 3.88 [employer] Phone: WBC (Bld) [#/Vol] 10.2 10*3/uL [employer] Phone: WBC (Bld) [#/Vol] NOT REPORTED [employer] Phone: [employer] Phone: CBC with Diffon 12-04-2020 Erythrocyte distribution width (RBC) [Ratio] 12.8 % Normal 11.8-14.4 [facility] Comment on above: Performed By: #### F T4, CP, CDP, LIPR, B12, BNP, TSH, VD25, MG, TROPI #### [employer] [address] [place] [phone] Publicity Agent: Ernesto Miranda MD #### [email or web address] #### [facility] [address] [place] [address] Publicity Agent: Prasanth Haywood MD Hematocrit (Bld) [Volume fraction] 48.3 % High 36.3-47.1 [facility] Comment on above: Performed By: #### F T4, CP, CDP, LIPR, B12, BNP, TSH, VD25, MG, TROPI #### [facility] [address] [place] [phone] Publicity Agent: Ernesto Miranda MD #### [email or web address] #### [facility] [address] [place] [address] Publicity Agent: Prasanth Haywood MD Hemoglobin (Bld) [Mass/Vol] 15.3 g/dL High 11.9-15.1 [facility] Comment on above: Performed By: #### F T4, CP, CDP, LIPR, B12, BNP, TSH, VD25, MG, TROPI #### [facility] [address] [place] [phone] Publicity Agent: Ernesto Miranda MD #### [email or web address] #### [facility] [address] [place] [address] Publicity Agent: Prasanth Haywood MD MCH (RBC) [Entitic mass] 29.4 pg Normal 25.2-33.5 [facility] Comment on above: Performed By: #### F T4, CP, CDP, LIPR, B12, BNP, TSH, VD25, MG, TROPI #### [address] [address] Publicity Agent: Ernesto Miranda MD #### AVITB1 #### [address] [phone] Publicity Agent: Prasanth Haywood MD MCHC (RBC) [Mass/Vol] 31.7 g/dL Normal 28.4-34.8 [facility] Comment on above: Performed By: #### F T4, CP, CDP, LIPR, B12, BNP, TSH, VD25, MG, TROPI #### [place] [address] Publicity Agent: Ernesto Miranda MD #### AVITB1 #### [address] [address] Publicity Agent: Prasanth Haywood MD MCV (RBC) [Entitic vol] 92.7 fL Normal 82.6-102.9 [facility] Comment on above: Performed By: #### F T4, CP, CDP, LIPR, B12, BNP, TSH, VD25, MG, TROPI #### [place] [address] Publicity Agent: Ernesto Miranda MD #### [email or web address] #### [address] [address] Publicity Agent: Prasanth Haywood MD NRBC Automated 0.0 per 100 WBC Normal 0.0 [facility] Comment on above: Performed By: #### F T4, CP, CDP, LIPR, B12, BNP, TSH, VD25, MG, TROPI #### [address] [address] Publicity Agent: Ernesto Miranda MD #### AVITB1 #### [facility] [address] [place] [address] Publicity Agent: Prasanth Haywood MD Platelet mean volume (Bld) [Entitic vol] 10.2 fL Normal 8.1-13.5 [facility] Comment on above: Performed By: #### F T4, CP, CDP, LIPR, B12, BNP, TSH, VD25, MG, TROPI #### [address] [address] Publicity Agent: Ernesto Miranda MD #### AVITB1 #### [facility] [address] [place] [address] Publicity Agent: Prasanth Haywood MD Platelets (Bld) [#/Vol] 358 10*3/uL Normal 138-453 [facility] Comment on above: Performed By: #### F T4, CP, CDP, LIPR, B12, BNP, TSH, VD25, MG, TROPI #### [address] [address] Publicity Agent: Ernesto Miranda MD #### AVITB1 #### [facility] [address] [place] [address] Publicity Agent: Prasanth Haywood MD RBC (Bld) [#/Vol] 5.21 10*6/uL High 3.95-5.11 [facility] Comment on above: Performed By: #### F T4, CP, CDP, LIPR, B12, BNP, TSH, VD25, MG, TROPI #### [address] [address] Publicity Agent: Ernesto Miranda MD #### AVITB1 #### [facility] [address] [place] [address] Publicity Agent: Prasanth Haywood MD WBC (Bld) [#/Vol] 10.2 10*3/uL Normal 3.5-11.3 [facility] Comment on above: Performed By: #### F T4, CP, CDP, LIPR, B12, BNP, TSH, VD25, MG, TROPI #### [address] [address] Publicity Agent: Ernesto Miranda MD #### [email or web address] #### [facility] [address] [place] [phone] Publicity Agent: Prasanth Haywood MD Auto Diff Performed NOT REPORTED Normal [facility] Comment on above: Performed By: #### F T4, CP, CDP, LIPR, B12, BNP, TSH, VD25, MG, TROPI #### [address] [phone] Publicity Agent: Ernesto Miranda MD #### AVITB1 #### [address] [address] Publicity Agent: Prasanth Haywood MD Platelet Estimate NOT REPORTED Normal [facility] Comment on above: Performed By: #### F T4, CP, CDP, LIPR, B12, BNP, TSH, VD25, MG, TROPI #### [address] [phone] Publicity Agent: Ernesto Miranda MD #### AVITB1 #### [address] [address] Publicity Agent: Prasanth Haywood MD RBC morphology finding Nom (Bld) NOT REPORTED Normal [facility] Comment on above: Performed By: #### F T4, CP, CDP, LIPR, B12, BNP, TSH, VD25, MG, TROPI #### [address] [phone] Publicity Agent: Ernesto Miranda MD #### AVITB1 #### [facility] [address] [place], [place] [phone] Publicity Agent: Prasanth Haywood MD WBC Morphology NOT REPORTED Normal [facility] Comment on above: Performed By: #### F T4, CP, CDP, LIPR, B12, BNP, TSH, VD25, MG, TROPI #### [address] [phone] Publicity Agent: Ernesto Miranda MD #### AVITB1 #### [facility] [address] [place], [place] [phone] Publicity Agent: Prasanth Haywood MD Comp Metabolic Profon 2020 (cont.) Normal [facility] Comment on above: Result Comment: Aver age GFR for 60-69 years old: 85 mL/min/1.73sq m Chronic Kidney Disease: <60 mL/min/1.73sq m Kidney failure: <15 mL/min/1.73sq m eGFR calculated using average adult body mass. Additional eGFR calculator available at: http://www.Ricebook.Hepregen/multiple_crcl_2012.htm Performed By: #### F T4, CP, CDP, LIPR, B12, BNP, TSH, VD25, MG, TROPI #### [address] [phone] Publicity Agent: Ernesto Miranda MD #### AVITB1 #### [facility] [address] [place] [address] Publicity Agent: Prasanth Haywood MD Albumin [Mass/Vol] 4.4 g/dL Normal 3.5-5.2 [facility] Comment on above: Performed By: #### F T4, CP, CDP, LIPR, B12, BNP, TSH, VD25, MG, TROPI #### [address] [phone] Publicity Agent: Ernesto Miranda MD #### AVITB1 #### [facility] [address] [place] [address] Publicity Agent: Prasanth Haywood MD Albumin/Glob Ratio 1.2 Normal 1.0-2.5 [facility] Comment on above: Performed By: #### F T4, CP, CDP, LIPR, B12, BNP, TSH, VD25, MG, TROPI #### [address] [address] Publicity Agent: Ernesto Miranda MD #### AVITB1 #### [facility] [address] [place] [address] Publicity Agent: Prasanth Haywood MD Alkaline Phos 82 U/L Normal 35-104 [facility] Comment on above: Performed By: #### F T4, CP, CDP, LIPR, B12, BNP, TSH, VD25, MG, TROPI #### [place] [address] Publicity Agent: Ernesto Miranda MD #### AVITB1 #### [address] [phone] Publicity Agent: Prasanth Haywood MD ALT [Catalytic activity/Vol] 22 U/L Normal 5-33 [facility] Comment on above: Performed By: #### F T4, CP, CDP, LIPR, B12, BNP, TSH, VD25, MG, TROPI #### [address] [address] Publicity Agent: Ernesto Miranda MD #### AVITB1 #### [address] [phone] Publicity Agent: Prasanth Haywood MD Anion gap [Moles/Vol] 16 mmol/L Normal 9-17 [facility] Comment on above: Performed By: #### F T4, CP, CDP, LIPR, B12, BNP, TSH, VD25, MG, TROPI #### [address] [phone] Publicity Agent: Ernesto Miranda MD #### AVITB1 #### [facility] [address], [place] [phone] Publicity Agent: Prasanth Haywood MD AST [Catalytic activity/Vol] 22 U/L Normal <32 [facility] Comment on above: Performed By: #### F T4, CP, CDP, LIPR, B12, BNP, TSH, VD25, MG, TROPI #### [address] [address] Publicity Agent: Ernesto Miranda MD #### AVITB1 #### [address] [phone] Publicity Agent: Prasanth Haywood MD Bilirubin [Mass/Vol] 0.43 mg/dL Normal 0.3-1.2 [facility] Comment on above: Performed By: #### F T4, CP, CDP, LIPR, B12, BNP, TSH, VD25, MG, TROPI #### [address] [address] Publicity Agent: Ernesto Miranda MD #### AVITB1 #### [facility] [address] [place], [place] [phone] Publicity Agent: Prasanth Haywood MD Calcium [Mass/Vol] 9.3 mg/dL Normal 8.6-10.4 [facility] Comment on above: Performed By: #### F T4, CP, CDP, LIPR, B12, BNP, TSH, VD25, MG, TROPI #### [address] [address] Publicity Agent: Ernesto Miranda MD #### AVITB1 #### [facility] [address] [place], [place] [phone] Publicity Agent: Prasanth Haywood MD Chloride [Moles/Vol] 103 mmol/L Normal 98-107 [facility] Comment on above: Performed By: #### F T4, CP, CDP, LIPR, B12, BNP, TSH, VD25, MG, TROPI #### [address] [address] Publicity Agent: Ernesto Miranda MD #### AVITB1 #### [address] [phone] Publicity Agent: Prasanth Haywood MD CO2 [Moles/Vol] 21 mmol/L Normal 20-31 [facility] Comment on above: Performed By: #### F T4, CP, CDP, LIPR, B12, BNP, TSH, VD25, MG, TROPI #### [address] [address] Publicity Agent: Ernesto Miranda MD #### AVITB1 #### [address] [phone] Publicity Agent: Prasanth Haywood MD Creatinine [Mass/Vol] 0.75 mg/dL Normal 0.50-0.90 [facility] Comment on above: Performed By: #### F T4, CP, CDP, LIPR, B12, BNP, TSH, VD25, MG, TROPI #### [address] [address] Publicity Agent: Ernesto Miranda MD #### AVITB1 #### [address] [phone] Publicity Agent: Prasanth Hyawood MD GFR, Amer >60 Normal >60 [facility] Comment on above: Performed By: #### F T4, CP, CDP, LIPR, B12, BNP, TSH, VD25, MG, TROPI #### [address] [address] Publicity Agent: Ernesto Miranda MD #### AVITB1 #### [address] [place] [address] Publicity Agent: Prasanth Haywood MD GFR,non Amer >60 Normal >60 [facility] Comment on above: Performed By: #### F T4, CP, CDP, LIPR, B12, BNP, TSH, VD25, MG, TROPI #### [address] [phone] Publicity Agent: Ernesto Miranda MD #### AVITB1 #### [address] [address] Publicity Agent: Prasanth Haywood MD Glucose [Mass/Vol] 111 mg/dL High 70-99 [facility] Comment on above: Performed By: #### F T4, CP, CDP, LIPR, B12, BNP, TSH, VD25, MG, TROPI #### [address] [address] Publicity Agent: Ernesto Miranda MD #### AVITB1 #### [address] [phone] Publicity Agent: Prasanth Haywood MD Potassium [Moles/Vol] 3.9 mmol/L Normal 3.7-5.3 [facility] Comment on above: Performed By: #### F T4, CP, CDP, LIPR, B12, BNP, TSH, VD25, MG, TROPI #### [address] [address] Publicity Agent: Ernesto Miranda MD #### AVITB1 #### [address] [phone] Publicity Agent: Prasanth Haywood MD Protein [Mass/Vol] 8.2 g/dL Normal 6.4-8.3 [facility] Comment on above: Performed By: #### F T4, CP, CDP, LIPR, B12, BNP, TSH, VD25, MG, TROPI #### [address] [address] Publicity Agent: Ernesto Miranda MD #### AVITB1 #### [facility] [address] [place], [place] [phone] Publicity Agent: Prasanth Haywood MD Sodium [Moles/Vol] 140 mmol/L Normal 135-144 [facility] Comment on above: Performed By: #### F T4, CP, CDP, LIPR, B12, BNP, TSH, VD25, MG, TROPI #### [address] [address] Publicity Agent: Ernesto Miranda MD #### AVITB1 #### [facility] [address] [place], [place] [phone] Publicity Agent: Prasanth Haywood MD Urea nitrogen [Mass/Vol] 15 mg/dL Normal 8-23 [facility] Comment on above: Performed By: #### F T4, CP, CDP, LIPR, B12, BNP, TSH, VD25, MG, TROPI #### [address] [address] Publicity Agent: Ernesto Miranda MD #### AVITB1 #### [facility] [address] [place], [place] [phone] Publicity Agent: Prasanth Haywood MD BUN/CRE Ratio NOT REPORTED Normal 9-20 [facility] Comment on above: Performed By: #### F T4, CP, CDP, LIPR, B12, BNP, TSH, VD25, MG, TROPI #### [address] [address] Publicity Agent: Ernesto Miranda MD #### AVITB1 #### [facility] [address] [place], [place] [phone] Publicity Agent: Prasanth Haywood MD Staging: NOT REPORTED Normal [facility] Comment on above: Performed By: #### F T4, CP, CDP, LIPR, B12, BNP, TSH, VD25, MG, TROPI #### [employer] [address] [place], [place] [phone] Publicity Agent: Ernesto Miranda MD #### AVITB1 #### [facility] [address] [place] [address] Publicity Agent: Prasanth Haywood MD Comprehensive Metabolic Pane lOrdered By: Shazia Bhatti on 12-04-2020 Albumin [Mass/Vol] 4.4 g/dL 3.5 - 5.2 g/dL [employer] Phone: Albumin/Globulin [Mass ratio] 1.2 {ratio} [employer] Phone: ALP (Bld) [Catalytic activity/Vol] 82 U/L 35 - 104 U/L [employer] Phone: ALT [Catalytic activity/Vol] 22 U/L 5 - 33 U/L [employer] Phone: Anion gap [Moles/Vol] 16 mmol/L 9 - 17 mmol/L [employer] Phone: AST [Catalytic activity/Vol] 22 U/L <32 [employer] Phone: Bilirubin [Mass/Vol] 0.43 mg/dL 0.3 - 1 .2 mg/dL [employer] Phone: Calcium [Mass/Vol] 9.3 mg/dL 8.6 - 10. 4 mg/dL [employer] Phone: Chloride [Moles/Vol] 103 mmol/L 98 - 10 7 mmol/L [employer] Phone: CO2 [Moles/Vol] 21 mmol/L 20 - 31 mmol/L [employer] Phone: Creatinine [Mass/Vol] 0.75 mg/dL 0.50 - 0.90 mg/dL [employer] Phone: Free PSA/Total PSA [Mass fraction] 8.2 g/dL 6.4 - 8.3 g/dL [employer] Phone: GFR >60 >60 mL/min [employer] Phone: GFR Non- >60 >60 mL/min [employer] Phone: GFR/1.73 sq M.predicted MDRD (S/P/Bld) [Vol rate/Area] [employer] Phone: Comment on above: Average GFR for 60-6 9 years old: 85 mL/min/1.73sq m Chronic Kidney Disease: <60 mL/min/1.73sq m Kidney failure: <15 mL/min/1.73sq m eGFR calculated using average adult body mass. Additional eGFR calculator available at: http://www.[employer]/Glassbeam_crcl_2012.htm GFR/1.73 sq M.predicted MDRD (S/P/Bld) [Vol rate/Area] NOT REPORTED [employer] Phone: Glucose [Mass/Vol] 111 mg/dL High 70 - 99 mg/dL [employer] Phone: Potassium [Moles/Vol] 3.9 mmol/L 3.7 - 5.3 mmol/L [employer] Phone: Sodium [Moles/Vol] 140 mmol/L 135 - 144 mmol/L [employer] Phone: Urea nitrogen (BldV) [Mass/Vol] 15 mg/dL 8 - 23 mg/dL [employer] Phone: Urea nitrogen/Creatinine (Bld) [Mass ratio] NOT REPORTED [employer] Phone: Laboratory - Chemistry and C hemistry - challengeOrdered By: Shazia Bhatti on 12-04-2020 Albumin [Mass/Vol] 4.4 g/dL (3.5-5.2 ) [facility] Work Phone: Comment on above: Note: Responsible Ob server cashier: CCEV AUTOFILE (3002) ALT [Catalytic activity/Vol] 22 U/L (5-33 ) [facility] Work Phone: Comment on above: Note: Responsible Ob server cashier: [employer] (3002) Anion gap [Moles/Vol] 16 mmol/L (9-17 ) [facility] Work Phone: Comment on above: Note: Responsible Ob server cashier: [employer] (3002) AST [Catalytic activity/Vol] 22 U/L (<32 ) [facility] Work Phone: Comment on above: Note: Responsible Ob server cashier: [employer]OFILE (3002) Bilirubin [Mass/Vol] 0.43 mg/dL (0.3-1.2 ) [facility] Work Phone: Comment on above: Note: Responsible Ob server cashier: [employer]CEV AUTOFILE (3002) Calcium [Mass/Vol] 9.3 mg/dL (8.6-10.4 ) [facility] Work Phone: Comment on above: Note: Responsible Ob server cashier: [employer] (3002) Chloride [Moles/Vol] 103 mmol/L (98-107 ) [facility] Work Phone: Comment on above: Note: Responsible Ob server cashier: [employer]FILE (3002) Cholesterol [Mass/Vol] 275 mg/dL High (<200 ) [facility] Work Phone: Comment on above: Note: Cholesterol Gu idelines:<200 [id number] Borderline>240 UndesirableResponsible Observer: CCEV AUTOFILE (3002) Cholesterol.total/Naya sterol in HDL [Mass ratio] 5.5 {ratio} High (<5 ) [facility] Work Phone: Comment on above: Note: Responsible Ob server cashier: [employer]CEV [employer]FILE (3002) CO2 [Moles/Vol] 21 mmol/L (20-31 ) [facility] Work Phone: Comment on above: Note: Responsible Ob server cashier: CCEV [employer]OFILE (3002) Cobalamin (Vitamin B12) [Mass/Vol] 796 pg/mL (232-1245 ) [facility] Work Phone: Comment on above: Note: Responsible Ob server cashier: CEEV AUTOFILE (3003) Creatinine [Mass/Vol] 0.75 mg/dL (0.50- 0.90 ) [facility] Work Phone: Comment on above: Note: Responsible Ob server cashier: CCEV AUTOFILE (3002) Glucose [Mass/Vol] 111 mg/dL High (70-99 ) [facility] Work Phone: Comment on above: Note: Responsible Ob server cashier: CCEV AUTOFILE (3002) Magnesium [Mass/Vol] 2.1 mg/dL (1.6-2.6 ) [facility] Work Phone: Comment on above: Note: Responsible Ob server cashier: EV AUTOFILE (3002) Magnesium [Mass/Vol] 50 mg/dL (>40 ) [facility] Work Phone: Comment on above: Note: HDL Guidelines :<40 [id number] Borderline>59 DesirableResponsible Observer: CCEV AUTOFILE (3002) Magnesium [Mass/Vol] 166 mg/dL High (0-130 ) [facility] Work Phone: Comment on above: Note: LDL Guidelines :<100 [id number] Near to/above [id number] Borderline>159 UndesirableDirect (measured) LDL and calculated LDL are not interchangeable tests.Responsible Observer: CCEV AUTOFILE (3002) Natriuretic peptide B (Bld) [Mass/Vol] 143 pg/mL (<300 ) [facility] Work Phone: Comment on above: Note: Pro-BNP result s cannot be compared to BNP results.Responsible Observer: ARSENIO ANDRADE (4100) Potassium [Moles/Vol] 3.9 mmol/L (3.7-5.3 ) [facility] [facility] Work Phone: Comment on above: Note: Responsible Ob server cashier: CCEV AUTOFILE ([id number]) Protein [Mass/Vol] 8.2 g/dL (6.4-8.3 ) [facility] Work Phone: Comment on above: Note: Responsible Ob server cashier: CCEV AUTOFILE ([id number]) Sodium [Moles/Vol] 140 mmol/L (135-144 ) [facility] Work Phone: Comment on above: Note: Responsible Ob server cashier: CCEV AUTOFILE ([id number]) Triglyceride [Mass/Vol] 296 mg/dL High (<150 ) [facility] Work Phone: Comment on above: Note: Triglyceride G uidelines:<150 Hwifercyp843-314 Qiolddfszd361-287 High>499 Very highBased on AHA Guidelines for fasting triglyceride, March 2012.Responsible Observer: CCEV AUTOFILE ([id number]) Urea nitrogen [Mass/Vol] 15 mg/dL (8-23 ) [facility] Work Phone: Comment on above: Note: Responsible Ob server cashier: CCEV AUTOFILE ([id number]) Laboratory - Hematology and Cell countsOrdered By: Shazia Bhatti on 12-04-2020 Basophils/100 WBC (Bld) 0 % (0-2 ) [facility] Work Phone: Comment on above: Note: Responsible Ob server cashier: HOLLY CRUZ (2110) Eosinophils (Bld) [#/Vol] 0.00 10*3/uL (0.0-0.4 ) [facility] Work Phone: Comment on above: Note: Responsible Ob server cashier: HOLLY CRUZ ([id number]) Eosinophils/100 WBC (Bld) 0 % Low (1-4 ) [facility] Work Phone: Comment on above: Note: Responsible Ob server cashier: HOLLY CRUZ ([phone]) Erythrocyte distribution width (RBC) [Ratio] 12.8 % (11.8-14.4 ) [facility] Work Phone: Comment on above: Note: Responsible Ob server cashier: MONICA KAUFFMAN ([id number]) Hematocrit (Bld) [Volume fraction] 48.3 % High (36.3-47.1 ) [facility] Work Phone: Comment on above: Note: Responsible Ob server cashier: MONICA KAUFFMAN ([id number]) Hemoglobin (Bld) [Mass/Vol] 15.3 g/dL High (11.9-15.1 ) [facility] Work Phone: Comment on above: Note: Responsible Ob server cashier: MONICA KAUFFMAN ([id number]) Immature granulocytes/100 WBC (Bld) 0 % (0 ) [facility] Work Phone: Comment on above: Note: Responsible Ob server cashier: HOLLY CRUZ (350) Lymphocytes (Bld) [#/Vol] 6.12 10*3/uL High (1.0-4.8 ) [facility] Work Phone: Comment on above: Note: R/O Chronic Ly mphoproliferative Disorder,recommend peripheral blood Flow Cytometry,if clinically indicated.Responsible Observer: HOLLY CRUZ ([id number]) Lymphocytes/100 WBC (Bld) 60 % High (24-44 ) [facility] Work Phone: Comment on above: Note: Responsible Ob server cashier: HOLLY CRUZ (401) MCH (RBC) [Entitic mass] 29.4 pg (25.2-33.5 ) [facility] Work Phone: Comment on above: Note: Responsible Ob server cashier: MONICA KAUFFMAN ([id number]) MCHC (RBC) [Mass/Vol] 31.7 g/dL (28.4- 34.8 ) [facility] Work Phone: Comment on above: Note: Responsible Ob server cashier: MONICA KAUFFMAN ([id number]) MCV (RBC) [Entitic vol] 92.7 fL (82. 6-102. 9 ) [facility] Work Phone: Comment on above: Note: Responsible Ob server cashier: MONICA KAUFFMAN ([phone]) Monocytes (Bld) [#/Vol] 0.20 10*3/uL (0.1-0.8 ) [facility] Work Phone: Comment on above: Note: Responsible Ob server cashier: HOLLY CRUZ ([id number]) Monocytes/100 WBC (Bld) 2 % (1-7 ) [facility]: Comment on above: Note: Responsible Ob server cashier: HOLLY CRUZ (256) Morphology Yeison (Bld) [Interp] Normal [facility] Work Phone: Comment on above: Note: Responsible Ob server cashier: HOLLY CRUZ (277) Platelet mean volume (Bld) [Entitic vol] 10.2 fL (8.1-13.5 ) [facility] Work Phone: Comment on above: Note: Responsible Ob server cashier: MONICA KAUFFMAN ([id number]) Platelets (Bld) [#/Vol] 358 10*3/uL (138-453 ) [facility] Work Phone: Comment on above: Note: Responsible Ob server cashier: MONICA KAUFFMAN (248) RBC (Bld) [#/Vol] 5.21 10*6/uL High (3.95-5.11 ) [facility] Work Phone: Comment on above: Note: Responsible Ob server cashier: MONICA KAUFFMAN ([phone]) RBC morphology finding Nom (Bld) NOT REPORTED [facility] Work Phone: Segmented neutrophils/100 WBC (Bld) 38 % (36-66 ) [facility] Work Phone: Comment on above: Note: Responsible Ob server cashier: HOLLY CRUZ ([id number]) WBC (Bld) [#/Vol] 10.2 10*3/uL (3.5-11.3 ) [facility] Work Phone: Comment on above: Note: Responsible Ob server cashier: MONICA MAZARIEGOSLILLIANTRINITY ([id number]) Lipid PanelOrdered By: Ramonita Bhatti on 12-04-2020 Cholesterol [Mass/Vol] 275 mg/dL High <200 [facility] Work Phone: Comment on above: Cholesterol Guidelines: <200 Desirable 200-240 Borderline >240 Undesirable Cholesterol in HDL [Mass/Vol] 50 mg/dL >40 [employer] Phone: Comment on above: HDL Guidelines: <40 Undesirable 40-59 Borderline >59 Desirable Cholesterol in LDL [Mass/Vol] 166 mg/dL High 0 - 130 mg/dL [employer] Phone: Comment on above: LDL Guidelines: <100 Desirable 100-129 Near to/above Desirable 130-159 Borderline >159 Undesirable Direct (measured) LDL and calculated LDL are not interchangeable tests. Cholesterol in VLDL [Mass/Vol] NOT REPORTED High 1 - 30 mg/dL [employer] Phone: Cholesterol.total/Naya sterol in HDL [Mass ratio] 5.5 {ratio} High <5 [facility]: Triglyceride [Mass/Vol] 296 mg/dL High <150 [facility] Comment on above: Triglyceride Guidelines: <150 Desirable 150-199 Borderline 200-499 High >499 Very high Based on AHA Guidelines for fasting triglyceride, March 2012. Lipid Profileon 12-04-2020 Cholesterol [Mass/Vol] 275 mg/dL High <200 [facility] Comment on above: Result Comment: Cholesterol Guidelines: <200 Desirable 200-240 Borderline >240 Undesirable Performed By: #### F T4, CP, CDP, LIPR, B12, BNP, TSH, VD25, MG, TROPI #### [facility] [address] [place] [address] Publicity Agent: Ernesto Miranda MD #### AVITB1 #### [facility] [address] [place] [address] Publicity Agent: Prasanth Haywood MD Cholesterol in HDL [Mass/Vol] 50 mg/dL Normal >40 [facility] Comment on above: Result Comment: HDL Guidelines: <40 Undesirable 40-59 Borderline >59 Desirable Performed By: #### F T4, CP, CDP, LIPR, B12, BNP, TSH, VD25, MG, TROPI #### [facility] [address] [place] [address] [phone] Publicity Agent: Ernesto Miranda MD #### AVITB1 #### [facility] [address] [place] [address] Publicity Agent: Prasanth Haywood MD Cholesterol in LDL [Mass/Vol] 166 mg/dL High 0-130 [facility] Comment on above: Result Comment: LDL Guidelines: <100 Desirable 100-129 Near to/above Desirable 130-159 Borderline >159 Undesirable Direct (measured) LDL and calculated LDL are not interchangeable tests. Performed By: #### F T4, CP, CDP, LIPR, B12, BNP, TSH, VD25, MG, TROPI #### [facility] [address] [place] [phone] Publicity Agent: Ernesto Miranda MD #### AVITB1 #### [facility] [address], [place] [phone] Publicity Agent: Prasanth Haywood MD Cholesterol.total/Naya sterol in HDL [Mass ratio] 5.5 {ratio} High <5 [facility] Comment on above: Performed By: #### F T4, CP, CDP, LIPR, B12, BNP, TSH, VD25, MG, TROPI #### [facility] [address] [place] [phone] Publicity Agent: Ernesto Miranda MD #### AVITB1 #### [facility] [address], [place] [phone] Publicity Agent: Prasanth Haywood MD Triglyceride [Mass/Vol] 296 mg/dL High <150 [facility] Comment on above: Result Comment: Triglyceride Guidelines: <150 Desirable 150-199 Borderline 200-499 High >499 Very high Based on AHA Guidelines for fasting triglyceride, March 2012. Performed By: #### F T4, CP, CDP, LIPR, B12, BNP, TSH, VD25, MG, TROPI #### [address] [phone] Publicity Agent: Ernesto Miranda MD #### AVITB1 #### [address] [phone] Publicity Agent: Prasanth aHywood MD Cholesterol,VLDL NOT REPORTED Normal 07-20 [facility] Comment on above: Performed By: #### F T4, CP, CDP, LIPR, B12, BNP, TSH, VD25, MG, TROPI #### [address] [address] Publicity Agent: Ernesto Miranda MD #### AVITB1 #### [address] [phone] Publicity Agent: Prasanth Haywood MD Magnesiumon 12-04-2020 Magnesium [Mass/Vol] 2.1 mg/dL Normal 1.6-2.6 [facility] Comment on above: Performed By: #### F T4, CP, CDP, LIPR, B12, BNP, TSH, VD25, MG, TROPI #### [address] [address] Publicity Agent: Ernesto Miranda MD #### AVITB1 #### [facility] [address] [place] [phone] Publicity Agent: Prasanth Haywood MD MagnesiumOrdered By: Shazia Bhatti on 12-04-2020 Magnesium [Mass/Vol] 2.1 mg/dL 1.6 - 2 .6 mg/dL [facility] Call Phone: No Panel InformationOrdered By: Shazia Bhatti on 12-04-2020 Interpretation and review of laboratory results Abnormal [facility] Call Phone: [employer] Work Phone: [facility] Call Phone: (cont.) See Note [facility] Work Phone: Comment on above: Note: Average GFR fo r 60-69 years old:85 mL/min/1.73sq mChronic Kidney Disease:<60 mL/min/1.73sq mKidney failure:<15 mL/min/1.73sq meGFR calculated using average adult body mass. Additional eGFR calculatoravailable at:http://www.[employer]/multiple_crcl_2012.htmResponsible Observer: CCEV AUTOFILE (3002) Abs. Basophil 0.00 k/uL (0.0-0.2 ) [facility] Work Phone: Comment on above: Note: Responsible Ob server cashier: HOLLY CRZU ([id number]) Abs.Imm.Granulocyte 0.00 k/uL (0.00-0. 30 ) [facility] Work Phone: Comment on above: Note: Responsible Ob server cashier: HOLLY CRUZ ([id number]) Abs.Neutrophil (Seg) 3.88 k/uL (1.8-7.7 ) [facility] Work Phone: Comment on above: Note: Responsible Ob server cashier: HOLLY CRUZ (830) Albumin/Glob Ratio 1.2 (1.0-2.5 ) [facility] Work Phone: Comment on above: Note: Responsible Ob server cashier: CCEV AUTOFILE ([id number]) Alkaline Phos 82 U/L (35-104 ) [facility] Work Phone: Comment on above: Note: Responsible Ob server cashier: CCEV AUTOFILE ([id number]) Auto Diff Performed NOT REPORTED [facility] Work Phone: BNP Interpretation Pro-BNP Reference Range: [facility] Work Phone: Comment on above: Note: Rule Out: <300 [place] Zone:Age <50 300-450Age 50-75 300-900Age >75 300-1800Usually represents mild to moderate HF but other cardiopulmonary causes cannotbe ruled out.Rule In:Age <50 >450Age 50-75 >900Age >75 >1800Responsible Observer: ARSENIO ANDRADE ([id number]) BUN/CRE Ratio NOT REPORTED (9-20 ) [facility] Work Phone: Cholesterol,VLDL NOT REPORTED mg/dL (1-30 ) [facility] Work Phone: GFR, Amer >60 mL/min (>60 ) [facility] Work Phone: Comment on above: Note: Responsible Ob server cashier: CCEV AUTOFILE ([id number]) GFR,non Amer >60 mL/min (>60 ) [facility] Work Phone: Comment on above: Note: Responsible Ob server cashier: CCEV AUTOFILE ([id number]) NRBC Automated 0.0 per_100_WBC (0.0 ) [facility] Work Phone: Comment on above: Note: Responsible Ob server cashier: MONICA KAUFFMAN ([id number]) Platelet Estimate NOT REPORTED [facility] Work Phone: Reported Physicians See Note [facility] Work Phone: Comment on above: Note: Reported Physi cians:Ordering: Shazia BhattiAttending: Shazia BhattiReferring: Shazia Bhatti Staging: NOT REPORTED [facility] Work Phone: Thyroid Stim. Horm. 2.22 mIU/L (0.30-5. 00 ) [facility] Work Phone: Comment on above: Note: Responsible Ob server cashier: ARSENIO ANDRADE ([id number]) Thyroxine, Free 1.02 ng/dL (0.93-1.70 ) [facility] Work Phone: Comment on above: Note: Responsible Ob server cashier: ARSENIO ANDRADE ([id number]) Troponin Interp. NOT REPORTED [facility] Work Phone: Troponin T NOT REPORTED ng/mL (<0.03 ) [facility] Work Phone: Troponin, High Sens <6 ng/L (0-14 ) [facility] Work Phone: Comment on above: Note: High Sensitivi ty Troponin values cannot be compared with other Troponinmethodologies.Patients with high levels of Biotin oral intake (i.e >5mg/day) may have falselydecreased Troponin levels. Samples collected within 8 hours of biotin intakemay require additional information for diagnosis.Responsible Observer: ARSENIO SULLIVANDannie ([id number]) Vitamin B1 114 nmol/L (70-180 ) [facility] Work Phone: Comment on above: Note: (NOTE)INTERPRE TIVE INFORMATION: Vitamin B1, Whole BloodThis assay measures the concentration of thiamine diphosphate(TDP), the primary active form of vitamin B1. Approximately 90percent of vitamin B1 present in whole blood is TDP. Thiamine andthiamine monophosphate, which comprise the remaining 10 percent,are not measured.This test was developed and its performance characteristicsdetermined by [email or web address]. It has not been cleared orapproved by the [place] Food and Drug Administration. This test wasperformed in a CLIA certified laboratory and is intended forclinical purposes.Performed By: [email or web address] [place] [id number] Director: Marisela Ruiz MDResponsible Observer: SHERIDAN ALVAREZ ([id number]) Vitamin D 25 [place] 50.2 ng/mL (30.0-100. 0 ) [facility] Work Phone: Comment on above: Note: Reference Rang e:Vitamin D status RangeDeficiency <20 ng/mLMild Deficiency 20-30 ng/mLSufficiency 30-100 ng/mLToxicity >100 ng/mLResponsible Observer: ARSENIO ANTSana VILLANUEVA ([id number]) WBC Morphology NOT REPORTED [facility] Work Phone: T4, FreeOrdered By: Shazia stewart on 12-04-2020 Thyroxine, Free 1.02 ng/dL 0.93 - 1.70 ng/dL [facility] [employer] Work Phone: TSH without ReflexOrdered By : Shazia Bhatti on 12-04-2020 TSH Qn 2.22 m[IU]/L [facility] [employer] Work Phone: Thyroid Stim. Horm.on 2020 TSH Qn 2.22 m[IU]/L Normal 0.30-5.00 [facility] Comment on above: Performed By: #### F T4, CP, CDP, LIPR, B12, BNP, TSH, VD25, MG, TROPI #### [facility] [address] [place] [address] [phone] Publicity Agent: Ernesto Miranda MD #### AVITB1 #### [facility] [address] [place] [address] Publicity Agent: Prasanth Haywood MD Thyroxine, Freeon 12-04-2020 Thyroxine, Free 1.02 ng/dL Normal 0.93-1.70 [facility] Comment on above: Performed By: #### F T4, CP, CDP, LIPR, B12, BNP, TSH, VD25, MG, TROPI #### [employer] [facility] [address] [place] [address] [phone] Publicity Agent: Ernesto Miranda MD #### AVITB1 #### [facility] [address] [place] [address] Publicity Agent: Prasanth Haywood MD Troponinon 12-04-2020 Troponin, High Sens <6 Normal 0-14 [facility] Comment on above: Result Comment: High Sensitivity Troponin values cannot be compared with other Troponin methodologies. Patients with high levels of Biotin oral intake (i.e >5mg/day) may have falsely decreased Troponin levels. Samples collected within 8 hours of biotin intake may require additional information for diagnosis. Performed By: #### F T4, CP, CDP, LIPR, B12, BNP, TSH, VD25, MG, TROPI #### [address] [address] Publicity Agent: Ernesto Miranda MD #### AVITB1 #### [address] [phone] Publicity Agent: Prasanth Haywood MD Troponin Interp. NOT REPORTED Normal [facility] Comment on above: Performed By: #### F T4, CP, CDP, LIPR, B12, BNP, TSH, VD25, MG, TROPI #### [address] [address] Publicity Agent: Ernesto Miranda MD #### AVITB1 #### [address] [address] Publicity Agent: Prasanth Haywood MD Troponin T NOT REPORTED Normal <0.03 [facility] Comment on above: Performed By: #### F T4, CP, CDP, LIPR, B12, BNP, TSH, VD25, MG, TROPI #### [address] [address] Publicity Agent: Ernesto Miranda MD #### AVITB1 #### [address] [address] Publicity Agent: Prasanth Haywood MD TroponinOrdered By: Shazia stewart on 12-04-2020 Troponin Interp NOT REPORTED [employer] Phone: Troponin T NOT REPORTED <0.03 ng/mL [employer] Phone: Troponin, High Sensitivity <6 0 - 14 ng/L [employer] Phone: Comment on above: High Sensitivity Troponin values cannot be compared with other Troponin methodologies. Patients with high levels of Biotin oral intake (i.e >5mg/day) may have falsely decreased Troponin levels. Samples collected within 8 hours of biotin intake may require additional information for diagnosis. Vitamin B12on 12-04-2020 Cobalamin (Vitamin B12) [Mass/Vol] 796 pg/mL Normal 232-1245 [facility] Comment on above: Performed By: #### F T4, CP, CDP, LIPR, B12, BNP, TSH, VD25, MG, TROPI #### [employer] [address] [place] [address] Publicity Agent: Ernesto Miranda MD #### AVITB1 #### [facility] [address] [place] [address] Publicity Agent: Prasanth Haywood MD Vitamin [id number] By: Ramonita Bhatti on 12-04-2020 Cobalamin (Vitamin B12) [Mass/Vol] 796 pg/mL 232 - 1245 pg/mL [employer] Phone: [employer] Phone: Vitamin D 25 HydroxyOrdered By: Shazia Bhatti on 12-04-2020 Vit D, 25-Hydroxy 50.2 ng/mL 30.0 - 100.0 ng/mL [employer] Phone: Comment on above: Reference Range: Vitamin D status Range Deficiency <20 ng/mL Mild Deficiency 20-30 ng/mL Sufficiency 30-100 ng/mL Toxicity >100 ng/mL [employer] Phone: Vitamin D 25 OHon 12-04-2020 Vitamin D 25 OH 50.2 ng/mL Normal 30.0-100.0 [facility] Comment on above: Result Comment: Reference Range: Vitamin D status Range Deficiency <20 ng/mL Mild Deficiency 20-30 ng/mL Sufficiency 30-100 ng/mL Toxicity >100 ng/mL Performed By: #### F T4, CP, CDP, LIPR, B12, BNP, TSH, VD25, MG, TROPI #### [facility] [address] [place] [address] Publicity Agent: Ernesto Miranda MD #### AVITB1 #### [facility] [address] [place] [address] Publicity Agent: Prasanth Haywood MD Otheron 01-20-2018 0=No Invalid Interpretation Code [facility] Work Phone: 1=Yes Invalid Interpretation Code [facility] Work Phone: 0 Invalid Interpretation Code [facility] Work Phone: 1=Controlled Invalid Interpretation Code [facility] Work Phone: Risk Level 1=3 or < Invalid Interpretation Code [facility] Work Phone: 0= N/A Invalid Interpretation Code [facility] Work Phone: 0-N/A Invalid Interpretation Code [facility] Work Phone: 3 Invalid Interpretation Code [facility] Work Phone: [phone] Invalid Interpretation Code [facility] Work Phone: [phone] Current Invalid Interpretation Code [facility] Work Phone: [phone] tjm Invalid Interpretation Code [facility] Work Phone: [phone] Otheron 10-22-2017 0= N/A Invalid Interpretation Code [facility] Work Phone: 3 Invalid Interpretation Code [facility] Work Phone: 0 Invalid Interpretation Code [facility] Work Phone: 0=No Invalid Interpretation Code [facility] Work Phone: 1=Yes Invalid Interpretation Code [facility] Work Phone: 1=Controlled Invalid Interpretation Code [facility] Work Phone: 0-N/A Invalid Interpretation Code [facility] Work Phone: Risk Level 1=3 or < Invalid Interpretation Code [facility] Work Phone: [facility]acon 10-21-2017 Cholesterol in HDL mass conc 41.0 mg/dL Invalid Interpretation Code >39 [facility] Work Phone: Cholesterol in LDL mass conc 136.0 mg/dL Invalid Interpretation Code <100 [facility] Work Phone: Triglyceride mass conc 409.0 mg/dL Invalid Interpretation Code <150 [facility] Work Phone: Hematologyon 10-21-2017 Basophils Auto #/vol (Bld) 0.8 % Invalid Interpretation Code [facility] Work Phone: Basophils/100 WBC Auto (Bld) 0.1 K/uL Invalid Interpretation Code 0.0-0.1 [facility] Work Phone: Eosinophils/100 WBC Auto (Bld) 3.6 % Invalid Interpretation Code [facility] Work Phone: Erythrocyte distribution width Auto Ratio (RBC) 12.7 % Invalid Interpretation Code 10.8-14.8 [facility] Work Phone: Hematocrit Auto Volume Fraction (Bld) 43.80 % Invalid Interpretation Code 36.0-48.0 [facility] Work Phone: Hemoglobin S Solubility test Ql (Bld) 15.1 Invalid Interpretation Code 12.0-16.0 [facility] Work Phone: Lymphocytes/100 WBC Auto (Bld) 36.7 % Invalid Interpretation Code [facility] Work Phone: MCH Auto Entitic mass (RBC) 31.6 pg Invalid Interpretation Code 27.0-34.0 [facility] Work Phone: MCHC Auto mass conc (RBC) 34.5 g/dL Invalid Interpretation Code 31.0-36.0 [facility] Work Phone: MCV Auto Entitic volume (RBC) 91.6 fL Invalid Interpretation Code 80.-100. [facility] Work Phone: Monocytes/100 WBC Auto (Bld) 8.9 % Invalid Interpretation Code [facility] Work Phone: Neutrophils/100 WBC Auto (Bld) 49.5 % Invalid Interpretation Code [facility] Work Phone: Nucleated RBC/100 WBC Ratio (Bld) 0.4 10*3/uL Invalid Interpretation Code 0.1-0.4 [facility] Work Phone: Nucleated RBC/100 WBC Ratio (Bld) 3.7 10*3/uL Invalid Interpretation Code 0.8-5.2 [facility] Work Phone: Nucleated RBC/100 WBC Ratio (Bld) 0.9 10*3/uL Invalid Interpretation Code 0.1-0.9 [facility] Work Phone: Nucleated RBC/100 WBC Ratio (Bld) 5.0 10*3/uL Invalid Interpretation Code 1.3-9.1 [facility] Work Phone: RBC Auto #/vol (Bld) 4.780 10*6/uL Invalid Interpretation Code 4.00-5.50 [facility] Work Phone: Metabolic Panelon 10-21-2017 Albumin mass conc 4.10 g/dL Invalid Interpretation Code 3.5-5.2 [facility] Work Phone: ALP enzyme act/vol 88 U/L Invalid Interpretation Code 30-121 [facility] Work Phone: ALT enzyme act/vol 30 U/L Invalid Interpretation Code 5-40 [facility] Work Phone: Anion gap 3 molar conc 12 mmol/L Invalid Interpretation Code 10-19 [facility] Work Phone: AST enzyme act/vol 31 U/L Invalid Interpretation Code 9-40 [facility] Work Phone: Calcium mass conc 8.90 mg/dL Invalid Interpretation Code 8.5-10.5 [facility] Work Phone: Chloride molar conc 100 mmol/L Invalid Interpretation Code 95-107 [facility] Work Phone: CO2 molar conc 29 mmol/L Invalid Interpretation Code 19-31 [facility] Work Phone: [phone] Creatinine mass conc 1.20 mg/dL Invalid Interpretation Code 0.6-1.3 [facility] Work Phone: [phone] Glucose mass conc 96 mg/dL Invalid Interpretation Code 70-99 [facility] Work Phone: [phone] Potassium molar conc 4.60 mmol/L Invalid Interpretation Code 3.5-5.4 [facility] Work Phone: [phone] Protein mass conc 6.8 g/dL Invalid Interpretation Code 6.1-8.3 [facility] Work Phone: [phone] Sodium molar conc 141 mmol/L Invalid Interpretation Code 135-146 [facility] Work Phone: Urea nitrogen mass conc 21.0 mg/dL Invalid Interpretation Code 8-23 [facility] Work Phone: Otheron 10-21-2017 Bilirubin Ql (U) 0.3 Invalid Interpretation Code <1.3 [facility] Work Phone: Cholesterol crystals Infrared spectroscopy Ql (Stone) 237 mg/dL Invalid Interpretation Code <200 [facility] Work Phone: [phone] Cholesterol.total/Naya sterol in HDL mass ratio 5.8 {ratio} Invalid Interpretation Code <5 [facility] Work Phone: WBC LM Ql (Sput) 10.1 Invalid Interpretation Code 3.7-10.8 [facility] Work Phone: [phone] Invalid Interpretation Code 150.-450. [facility] Work Phone: 57.3 Invalid Interpretation Code >59 [facility] Work Phone: 49.4 Invalid Interpretation Code >59 [facility] Work Phone: DRUG ABUSE SCREENon 02-17-20 17 AMPHETAMINE/METHAMPH Negative Normal NEGATIVE [facility] [facility] Comment on above: Performed By: #### T OXPN, GIP ####[facility] [address]agxzy[address] [place] [place] [address] BARBITURATE Negative Normal NEGATIVE [facility] Comment on above: Performed By: #### T OXPN, GIP ####[facility] Gvevbmykmkeq[address] [place] [place] [address] COCAINE METABOLITE Negative Normal NEGATIVE [facility] Comment on above: Performed By: #### T OXPN, GIP ####[facility] Ybdbxfkrpcwk[address] [place] [place] [address] OXYCODONE Negative Normal NEGATIVE [facility] Comment on above: Performed By: #### T OXPN, GIP ####[facility] Xfkatfcdushl9[address] [place] [place] [address] Urine, benzodiazepines presence Negative Normal NEGATIVE [facility] Comment on above: Performed By: #### T OXPN, GIP ####[facility] [address] [place] [place] [address] Urine, cannabinoids presence Negative Normal NEGATIVE [facility] Comment on above: Performed By: #### T OXPN, GIP ####[facility] Efdkkcncymcm[address] [place] [place] [address] Urine, opiates presence Negative Normal NEGATIVE [facility] Comment on above: Performed By: #### T OXPN, GIP ####[facility] Fmfvreqtzyhk[address] [place] [place] [address] Urine, phencyclidine presence Negative Normal NEGATIVE [facility] Comment on above: Result Comment: A N egative result for a drug abuse screen test indicates that the drug concentration is below the following cutoffs: Amphetamine/Methamphetamine 1000 ng/ml Barbiturate 200 ng/ml Benzodiazapine 200 ng/ml Cannabinoids 50 ng/ml Cocaine Metabolite 300 ng/ml Opiates 300 ng/ml Oxycodone 100 ng/ml Phencyclidine 25 ng/mlA Positive result for a drug abuse screen test should be considered presumptive positive until/unless confirmed by another method. (Additional request)Quantitative values from a reference laboratory are available upon additional request.These results are for medical use only. Performed By: #### T OXPN, GIP ####[facility] [address]tzhyskgiv[address] [place] [place] [address] ED Noteon 02-16-2017 HIM IP Note OR Reaming Machine Tender Normal [facility] HIM IP Note OR Reaming Machine Tender Normal [facility] HIM IP Note OR Reaming Machine Tender Normal [facility] POTASSIUMon 02-16-2017 Potassium molar conc 3.9 mmol/L Normal 3.5-5.2 [facility] Comment on above: Performed By: #### K P ####[facility] Nbeazuzkklph[address] [place] [address] UA WITH MICROSCOPICon 2016 EPITHELIAL 10 /hpf Normal 3-5/hpf [facility] Comment on above: Performed By: #### U RCS2 ####[facility] Gdjcwgprknqw944 [place] [address] Erythrocytes (RBC) 25 /hpf Normal 0-2/hpf [facility] Comment on above: Performed By: #### U RCS2 ####[facility] Yhxawbvuubmd215 [place] [address] Urine, bacteria in sediment FEW Normal FEW/NONE S [facility] Comment on above: Performed By: #### U RCS2 ####[facility] Yrljtegfroet[address] [place] [address] Urine, casts in sediment NONE SEEN Normal NONE SEEN [facility] Comment on above: Performed By: #### U RCS2 ####[employer] Pgfblfrwrduc[address] [place] [address] Urine, crystals in sediment NONE SEEN Normal NONE SEEN [facility] Comment on above: Performed By: #### U RCS2 ####[facility] Yjjxnvjghgrs284 [place] [address] WBC (Leukocytes) 2 /hpf Normal 0-4/hpf [facility] Comment on above: Performed By: #### U RCS2 ####[facility] Tsbnovkbcpzv319 [place] [address] Bilirubin Ql (U) Negative Normal NEGATIVE [facility] Comment on above: Performed By: #### U RCS2 ####[facility] Favdhvlxmrjp231 [place] [address] BLOOD MODERATE Abnormal NEGATIVE [facility] Comment on above: Performed By: #### U RCS2 ####[facility] Jyqbsqytwliq174 [place] [address] Glucose mass conc Negative Normal NEGATIVE [facility] Comment on above: Performed By: #### U RCS2 ####[facility] Nkbwjtplyixs253 [place] [address] pH of blood 6.5 [pH] Normal 5.0 - 9.[address] [facility] Comment on above: Performed By: #### U RCS2 ####[facility] Pzxnidmamzsh368 [place] [address] Protein Negative Normal NEGATIVE [facility] Comment on above: Performed By: #### U RCS2 ####[facility] Nirxphcnhobt565 [place] [address] Urine, character CLOUDY Abnormal CLEAR-SL C [facility] Comment on above: Performed By: #### U RCS2 ####[facility] Skecbuhrekkj[address] [place] [address] Urine, color YELLOW Normal STRAW-YELL [facility] Comment on above: Performed By: #### U RCS2 ####[facility] [employer] Nwuaculyhpbd510 [place] [facility] [place] [address] Urine, ketones presence Negative Normal NEGATIVE [facility] Comment on above: Performed By: #### U RCS2 ####[facility] Tgkfrwjiesie644 [place] [address] Urine, nitrite presence Negative Normal NEGATIVE [facility] Comment on above: Performed By: #### U RCS2 ####[facility] Cflgpucatkbx640 [place] [address] Urine, specific gravity 1.019 Normal 1.002-1.03 [facility] Comment on above: Performed By: #### U RCS2 ####[facility] Zdbktfcvjotm282 [place] [address] Urine, urobilinogen 1.0 {Ivan'U}/dL Normal 0.0 - 1. [address] [facility] Comment on above: Performed By: #### U RCS2 ####[facility] Fdgbwtpjukgs217 [place] [facility] [place] [address] WBC (Leukocytes) Negative Normal NEGATIVE [facility] Comment on above: Performed By: #### U RCS2 ####[employer] [address]bri[address] [place] [address] XR ABDOMEN LIMITED (KUB)on 0 02-16-2017 XR ABDOMEN LIMITED (KUB) PROCEDURE: XR ABDOMEN LIMITED (KUB)CLINICAL INFORMATION: patient with c.diff colitis, . Generalized abdominal pain. Nausea and vomiting. Sick for 5 weeks. Smoker, cholecystectomy, appendectomy, fibromyalgia.COMPARISON: Abdominal x-ray 03/28/2015. CT abdomen and pelvis 02/01/2017.TECHNIQUE: A supine AP view of the abdomen was obtained. 2 films.FINDINGS: There are scattered air-filled small bowel loops. These are not dilated. There is some stool in the transverse colon. There are no displaced bowel loops. There is no gross free air. There are surgical clips from a prior cholecystectomy. No suspicious osseous lesions are present.IMPRESSION: No evidence of distended bowel loops. There is air scattered throughout bowel loops.This report has been created using voice recognition software. It may contain minor errors which are inherent in voice recognition technology.Final report electronically signed by Dr. Corinne Mendoza on 02/15/2017 10:19 PMInterpreted by:PHONG Kaplanigned by:Corinne Mendoza MD02/15/17Final result Normal [facility] ANION GAPon 02-15-2017 Anion gap 13.0 mmol/L Normal 8.0-16.[address] [facility] Comment on above: Result Comment: ANIO N GAP = Sodium -(Chloride + CO2) Performed By: #### C BC, BMP, HEPPA, LIPAS, ETOHS, ANION, OSMOL, EGFR1, TROPT ####[employer] [address] [place] [address] BASIC METABOL PANELon 2016 Calcium 9.3 mg/dL Normal 8.5-10.[address] [facility] Comment on above: Performed By: #### C BC, BMP, HEPPA, LIPAS, ETOHS, ANION, OSMOL, EGFR1, TROPT ####[employer] [address] [place] [address] Chloride 98 mmol/L Normal 98-[address] [facility] Comment on above: Performed By: #### C BC, BMP, HEPPA, LIPAS, ETOHS, ANION, OSMOL, EGFR1, TROPT ####[facility] Nglgpeysswdz[address] [place] [address] CO2 25 mmol/L Normal 23-[address] [facility] Comment on above: Performed By: #### C BC, BMP, HEPPA, LIPAS, ETOHS, ANION, OSMOL, EGFR1, TROPT ####[facility] [address]ng[address]xdlfym[address] [place] [address] Creatinine 0.7 mg/dL Normal 0.4-1.[address] [facility] Comment on above: Performed By: #### C BC, BMP, HEPPA, LIPAS, ETOHS, ANION, OSMOL, EGFR1, TROPT ####[facility] [address]qwfmzwimhke[address] [place] [address] Glucose mass conc 105 mg/dL Normal 70-[address] [facility] Comment on above: Performed By: #### C BC, BMP, HEPPA, LIPAS, ETOHS, ANION, OSMOL, EGFR1, TROPT ####[facility] Fmmxpjemobfe[address] [place] [address] Potassium molar conc 5.3 mmol/L High 3.5-5.2 [facility] Comment on above: Performed By: #### C BC, BMP, HEPPA, LIPAS, ETOHS, ANION, OSMOL, EGFR1, TROPT ####[facility] [address]kgcyodp[address] [place] [address] Sodium 136 mmol/L Normal 135-[address] [facility] Comment on above: Performed By: #### C BC, BMP, HEPPA, LIPAS, ETOHS, ANION, OSMOL, EGFR1, TROPT ####[facility] [address]jbzvbqxmoqi[address] [place] [address] Urea nitrogen 10 mg/dL Normal 7-[address] [facility] Comment on above: Performed By: #### C BC, BMP, HEPPA, LIPAS, ETOHS, ANION, OSMOL, EGFR1, TROPT ####[facility] [address]ihxgo[address] [place] [address] CALCULATED OSMOLALITYon -2 Osmolality 271.4 mOsmol/kg Low 275.0-300. [facility] Comment on above: Performed By: #### C BC, BMP, HEPPA, LIPAS, ETOHS, ANION, OSMOL, EGFR1, TROPT ####[address] [place] [address] CBC WITH DIFFERENTIALon 01-20 Basophils Auto #/vol (Bld) 0.2 thou/mm3 High 0.0-0.[address] [facility] Comment on above: Performed By: #### C BC, BMP, HEPPA, LIPAS, ETOHS, ANION, OSMOL, EGFR1, TROPT ####[facility] [place] [address] Basophils/100 WBC Auto (Bld) 1.5 % Normal [facility] Comment on above: Performed By: #### C BC, BMP, HEPPA, LIPAS, ETOHS, ANION, OSMOL, EGFR1, TROPT ####[address] [place] [address] Eosinophils 0.4 thou/mm3 Normal 0.0-0.[address] [facility] Comment on above: Performed By: #### C BC, BMP, HEPPA, LIPAS, ETOHS, ANION, OSMOL, EGFR1, TROPT ####[address] [place] [address] Eosinophils/100 leukocytes 3.3 % Normal [facility] Comment on above: Performed By: #### C BC, BMP, HEPPA, LIPAS, ETOHS, ANION, OSMOL, EGFR1, TROPT ####[facility] [place] [address] Erythrocyte distribution width Auto Ratio (RBC) 14.3 % Normal 11.5-14.[address] [facility] Comment on above: Performed By: #### C BC, BMP, HEPPA, LIPAS, ETOHS, ANION, OSMOL, EGFR1, TROPT ####[facility] [place] [address] Erythrocytes (RBC) 0 /[address] [facility] Comment on above: Performed By: #### C BC, BMP, HEPPA, LIPAS, ETOHS, ANION, OSMOL, EGFR1, TROPT ####[facility] [place] [address] Erythrocytes (RBC) 5.32 mill/mm3 Normal 4.20-5.40 [facility] Comment on above: Performed By: #### C BC, BMP, HEPPA, LIPAS, ETOHS, ANION, OSMOL, EGFR1, TROPT ####[facility] [address]adwevq[address] [place] [address] Hematocrit (HCT) 49.0 % High 37.0-47.[address] [facility] Comment on above: Performed By: #### C BC, BMP, HEPPA, LIPAS, ETOHS, ANION, OSMOL, EGFR1, TROPT ####[address] [place] [address] Hemoglobin mass conc (Bld) 16.4 gm/dl High 12.0-16.[address] [facility] Comment on above: Performed By: #### C BC, BMP, HEPPA, LIPAS, ETOHS, ANION, OSMOL, EGFR1, TROPT ####[place] [address] Lymphocytes 4.2 thou/mm3 Normal 1.0-4.[address] [facility] Comment on above: Performed By: #### C BC, BMP, HEPPA, LIPAS, ETOHS, ANION, OSMOL, EGFR1, TROPT ####[place] [address] Lymphocytes/100 leukocytes 36.7 % Normal [facility] Comment on above: Performed By: #### C BC, BMP, HEPPA, LIPAS, ETOHS, ANION, OSMOL, EGFR1, TROPT ####[place] [address] MCH 30.9 pg Normal 27.0-31.[address] [facility] Comment on above: Performed By: #### C BC, BMP, HEPPA, LIPAS, ETOHS, ANION, OSMOL, EGFR1, TROPT ####[facility] [address]ru[address] [place] [address] MCHC mass conc (RBC) 33.5 gm/dl Normal 33.0-37.0 [facility] Comment on above: Performed By: #### C BC, BMP, HEPPA, LIPAS, ETOHS, ANION, OSMOL, EGFR1, TROPT ####[address] [place] [address] MCV 92.2 fL Normal 81.0-99.[address] [facility] Comment on above: Performed By: #### C BC, BMP, HEPPA, LIPAS, ETOHS, ANION, OSMOL, EGFR1, TROPT ####[place] [address] Monocytes 1.2 thou/mm3 Normal 0.4-1.[address] [facility] Comment on above: Performed By: #### C BC, BMP, HEPPA, LIPAS, ETOHS, ANION, OSMOL, EGFR1, TROPT ####[place] [address] Monocytes/100 leukocytes 10.3 % Normal [facility] Comment on above: Performed By: #### C BC, BMP, HEPPA, LIPAS, ETOHS, ANION, OSMOL, EGFR1, TROPT ####[place] [address] Platelet mean volume (PMV) 9.2 mcm Normal 7.4-10.[address] [facility] Comment on above: Performed By: #### C BC, BMP, HEPPA, LIPAS, ETOHS, ANION, OSMOL, EGFR1, TROPT ####[place] [address] Platelets 323 thou/mm3 Normal 130-[address] [facility] Comment on above: Performed By: #### C BC, BMP, HEPPA, LIPAS, ETOHS, ANION, OSMOL, EGFR1, TROPT ####[place] [address] SEGS 48.2 % Normal [facility] Comment on above: Performed By: #### C BC, BMP, HEPPA, LIPAS, ETOHS, ANION, OSMOL, EGFR1, TROPT ####[place] [address] SEGS ABSOLUTE COUNT 5.5 thou/mm3 Normal 1.8-7.7 [facility] Comment on above: Performed By: #### C BC, BMP, HEPPA, LIPAS, ETOHS, ANION, OSMOL, EGFR1, TROPT ####[facility] [address] [place] [address] WBC (Leukocytes) 11.4 thou/mm3 High 4.8-10.[address] [facility] Comment on above: Performed By: #### C BC, BMP, HEPPA, LIPAS, ETOHS, ANION, OSMOL, EGFR1, TROPT ####[facility] [address]fqlp[address] [place] [address] Erythrocyte morphology NORMAL Normal [facility] Comment on above: Performed By: #### C BC, BMP, HEPPA, LIPAS, ETOHS, ANION, OSMOL, EGFR1, TROPT ####[facility] [address] [place] [address] ED Noteon 02-15-2017 HIM IP Note OR Reaming Machine Tender Normal [facility] ED Provider Noteon 7 HIM IP Note OR Reaming Machine Tender Normal [facility] ETHYL ALCOHOL BLOODon 2016 ETHYL ALCOHOL BLOOD < 0.[address] [facility] Comment on above: Performed By: #### C BC, BMP, HEPPA, LIPAS, ETOHS, ANION, OSMOL, EGFR1, TROPT ####[facility] [address]xwdjms[address] [place] [address] GFR, ESTIMATEDon 02-15-2017 eGFR (MDRD) 86 ml/min/1.73m2 Abnormal [facility] Comment on above: Result Comment: Bjorn hood Description GFR, ml/min/1.73 m2 - At increased risk > or = 60 (with chronic kidney disease risk factors) 1 Normal or increased GFR > or = 90 2 Mildly or decreased GFR 60 - 89 3 Moderately decreased GFR 30 - 59 4 Severely decreased GFR 15 - 29 5 Kidney failure <15 (or dialysis)Estimated GFR calculated using abbreviated MDRD formula asrecommended by National Kidney Foundation. Calculation basedupon serum creatinine and adjusted for age, gender & race.[employer]. Internal Med., Vol. 139 (2) pg 137-147. Performed By: #### C BC, BMP, HEPPA, LIPAS, ETOHS, ANION, OSMOL, EGFR1, TROPT ####[facility] [address] [place] [address] GI PANEL BY PCRon 02-15-2017 ADENOVIRUS F 40/41 GI BY PCR Not Detected Normal [facility] Comment on above: Performed By: #### T OXPN, GIP ####[facility] [address]hi[address] [place] [address] ASTROVIRUS GI BY PCR Not Detected Normal [facility] Comment on above: Performed By: #### T OXPN, GIP ####[facility] [address]ehhwivomnwm[address] [place] [address] C DIFFICILE (TOXIN A/B) GI BY PCR Not Detected Normal [facility] Comment on above: Performed By: #### T OXPN, GIP ####[facility] Nszbhtefyqma[address] [place] [address] CAMPYLOBACTER GI BY PCR Not Detected Normal [facility] Comment on above: Performed By: #### T OXPN, GIP ####[facility] Tkajgnwdkbsw9[address] [facility] [place] [address] Cholesterol Not Detected Normal [facility] Comment on above: Performed By: #### T OXPN, GIP ####[facility] Qfpzrdviemel[address] [place] [facility] [place] [address] CRYPTOSPORIDIUM GI BY PCR Not Detected Normal [facility] Comment on above: Performed By: #### T OXPN, GIP ####[facility] Fuwdxvsgvpip[address] [facility] [place] [address] CYCLOSPORIDIUM GI BY PCR Not Detected Normal [facility] Comment on above: Performed By: #### T OXPN, GIP ####[facility] [address]kqaroamlfvp9[address] [place] [address] E COLI (EAEC) GI BY PCR Not Detected Normal [facility] Comment on above: Performed By: #### T OXPN, GIP ####[facility] Zfxajgtavbww[address] [place] [facility] [place] [address] E COLI (EIEC) GI BY PCR Not Detected Normal [facility] Comment on above: Performed By: #### T OXPN, GIP ####[facility] Vbzzyiasmvwk[address] [place] [facility] [place] [address] E COLI (EPEC) GI BY PCR Not Detected Normal [facility] Comment on above: Performed By: #### T OXPN, GIP ####[facility] Cftamjvndvzf343 [place] [facility] [place] [address] E COLI (ETEC) GI BY PCR Not Detected Normal [facility] Comment on above: Performed By: #### T OXPN, GIP ####[facility] Raaoirqlknqm262 [facility] [place] [address] E COLI (STEC) GI BY PCR Not Detected Normal [facility] Comment on above: Performed By: #### T OXPN, GIP ####[facility] X[address]ugqweuyat[address] [place] [address] E COLI O157 GI BY PCR Normal [facility] Comment on above: Performed By: #### T OXPN, GIP ####[facility] [place] [facility] [place] [address] E HISTOLYTICA GI BY PCR Not Detected Normal [facility] Comment on above: Performed By: #### T OXPN, GIP ####[facility] Nkjbjaudmsdn751 [facility] [place] [address] GIARDIA LAMBLIA GI BY PCR Not Detected Normal [facility] Comment on above: Performed By: #### T OXPN, GIP ####[facility] Lflwxmczvzqs141 [facility] [place] [address] NOROVIRUS GI BY PCR Not Detected Normal [facility] Comment on above: Performed By: #### T OXPN, GIP ####[facility] Hgadbhptutht937 [place] [facility] [place] [address] PLESIOMONAS SHIGELLOIDES GI BY PCR Not Detected Normal [facility] Comment on above: Performed By: #### T OXPN, GIP ####[facility] Oswxqzpleurc303 [facility] [place] [address] ROTAVIRUS A GI BY PCR Not Detected Normal [facility] Comment on above: Performed By: #### T OXPN, GIP ####[facility] Jecsdgwsdxma008 [facility] [place] [address] SALMONELLA GI BY PCR Not Detected Normal [facility] Comment on above: Performed By: #### T OXPN, GIP ####[facility] [address]ummaalytbdc[address] [place] [address] SAPOVIRUS GI BY PCR Not Detected Normal [facility] Comment on above: Result Comment: Limi tations:Nucleic acid may persist in vivo independently of organism viability.Additionally, some organisms may be carried asymptomatically. Detection oftarget organisms does not imply that the corresponding organisms areinfectious or are the causative agent of clinical symptoms. Results must becorrelated with clinical history, epidemiological data and other clinicalinformation available.C.difficile testing is not recommended in children <1 yr old due to highasymptomatic colonization rates. Among children aged 1 to 2 years, apositive C. difficile test is indicative of possible infection, whereas inchildren aged 3 years and older, a positive test signifies probableinfection due to colonization rates in this age group similar to those innonhospitalized adults (0% to 3%). [employer] Ped. C. diff Yabyobbirs6845. Performed By: #### T OXPN, GIP ####[facility] [place] [address] VIBRO GI BY PCR Not Detected Normal [facility] Comment on above: Performed By: #### T OXPN, GIP ####[facility] [address]nfyax[address] [place] [address] YERSINIA ENTEROCOLITICA GI BY PCR Not Detected Normal [facility] Comment on above: Performed By: #### T OXPN, GIP ####[facility] [address]notwff[address] [place] [address] HEPATIC FUNCTION PANELon Alanine aminotransferase (ALT) 25 U/L Normal 11-[address] [facility] Comment on above: Performed By: #### C BC, BMP, HEPPA, LIPAS, ETOHS, ANION, OSMOL, EGFR1, TROPT ####[facility] [address]ukebtma[address] [place] [address] Albumin 3.5 g/dL Normal 3.5-5.[address] [facility] Comment on above: Performed By: #### C BC, BMP, HEPPA, LIPAS, ETOHS, ANION, OSMOL, EGFR1, TROPT ####[facility] [place] [address] Alkaline phosphatase (ALP) 85 U/L Normal 38-[address] [facility] Comment on above: Performed By: #### C BC, BMP, HEPPA, LIPAS, ETOHS, ANION, OSMOL, EGFR1, TROPT ####[facility] [place] [address] Aspartate aminotransferase (AST) 43 U/L High 5-[address] [facility] Comment on above: Performed By: #### C BC, BMP, HEPPA, LIPAS, ETOHS, ANION, OSMOL, EGFR1, TROPT ####[address] [place] [address] Bilirubin (total) mg/dL Normal 0.0-0.[address] [facility] Comment on above: Performed By: #### C BC, BMP, HEPPA, LIPAS, ETOHS, ANION, OSMOL, EGFR1, TROPT ####[address] [place] [address] Bilirubin Ql (U) 0.3 mg/dL Normal 0.3-1.[address] [facility] Comment on above: Performed By: #### C BC, BMP, HEPPA, LIPAS, ETOHS, ANION, OSMOL, EGFR1, TROPT ####[address] [place] [address] Protein 7.4 g/dL Normal 6.1-8.[address] [facility] Comment on above: Performed By: #### C BC, BMP, HEPPA, LIPAS, ETOHS, ANION, OSMOL, EGFR1, TROPT ####[address] [place] [address] LIPASEon 02-15-2017 Lipase 32.3 U/L Normal 5.6-51.[address] [facility] Comment on above: Performed By: #### C BC, BMP, HEPPA, LIPAS, ETOHS, ANION, OSMOL, EGFR1, TROPT ####[address] [place] [address] TROPONIN-Ton 02-15-2017 Troponin T.cardiac mass conc ug/L Normal [facility] Comment on above: Result Comment: <0.0 10 ng/ml Normal> or = 0.010 ng/ml Elevated (99%) Consistent with myocardial damageCardiac troponin values can be elevated by many disease states in additionto acute ischemia. These include, but are not limited to: chronic renalfailure, CHF, CVA, pulmonary embolus, COPD, myocardial trauma/surgery,myocarditis, pericarditis, tachycardia, aortic dissection, amyloidosis,sepsis and strenuous exercise. Serial measurement of troponin is stronglyrecommended as a first step in determining whether a low level elevationrepresents an acute or chronic condition. Performed By: #### C BC, BMP, HEPPA, LIPAS, ETOHS, ANION, OSMOL, EGFR1, TROPT ####[address] [place] [address] CT ABDOMEN PELVIS W IV CONTR [facility] 02-02-2017 CT ABDOMEN PELVIS W IV CONTRAST PROCEDURE: CT ABDOMEN PELVIS W IV CONTRASTCLINICAL INFORMATION: Generalized abdominal pain, being treated currently for C. diff .COMPARISON: CT abdomen and pelvis December 10, [address] abdomen pelvis June 27, 2015.TECHNIQUE: [address] images were obtained through the abdomen and pelvis after the administration of intravenous and oral contrast. Coronal and sagittal reconstructions were obtained.All CT scans at this facility use dose modulation, iterative reconstruction, and/or weight-based dosing when appropriate to reduce radiation dose to as low as reasonably achievable.FINDINGS:There is a poorly marginated 0.8 cm pulmonary nodule posterior basilar segment of the right lower lobe stable since at least June 27, 2015. The older studies do not cover this area. Of the lungs are clear of acute process. A small amount of pericardial fat is present within the inferior anterior aspect of the major fissure on the left unchanged. The base of the heart is within appropriate limits.The liver is normal. The spleen is normal. There is a nodule associated with the lateral limb of the right adrenal gland. It still measures 1 cm in diameter. On the noncontrast study of June 27, 2015 measured 0.88 Hounsfield units density. The right adrenal otherwise looks normal. Left adrenal looks normal. The pancreas looks normal. The gallbladder is surgically absent. The right kidney and ureter are normal.There is a stable 0.3 x 0.4 cm radiodensity in the nondilated left renal pelvis. Stable 0.5 cm hypoechoic structure on the anterior cortex mid to upper pole the left kidney and along the posterior aspect of the cortex near the inferior pole of the left kidney.The urinary bladder is normal.No abnormalities of the small bowel loops are noted. Beginning in the midportion of sigmoid colon and extending to the rectosigmoid junction there is abnormal thickening in the patricia of the colon with mild perinephric fat stranding. There are a few small colonic diverticula also located in this region. There is no free fluid. There is no abscess. There is no free air. The IVC and aorta are of normal caliber. There is no pelvic free fluid. There is no adenopathy.No suspicious osseous lesions are identified.IMPRESSION: 1. Thickening of the mid sigmoid colon down to the rectosigmoid junction. This could represent an acute colitis or the residual sequela from the C. difficile colitis for which the patient started being treated. No evidence of abscess or perforation.2. Stable size of a small right adrenal nodule with characteristics for adrenal adenoma on the older noncontrast study of June 27, 2015. Follow-up as clinically indicated.3. A nonobstructing stone in the left kidney looks unchanged.4. Stable 8 mm pulmonary nodule right lower lobe since June 27, 2015. No older studies are available for comparison. Recommend CT scan of the chest in 6 months to establish stability of this nodule over a two-year period. Further follow up to be determined at that time.This report has been created using voice recognition software. It may contain minor errors which are inherent in voice recognition technology.Final report electronically signed by Dr. Jim Mercado on 02/02/2017 8:18 AMInterpreted by:Pierre Byrne, DOSigned by:Jim Mercado, DO02/02/17Final result Normal [facility] DRUG ABUSE SCREENon 02-03-20 17 AMPHETAMINE/METHAMPH Negative Normal NEGATIVE [facility] Comment on above: Performed By: #### T OXPN ####[employer] [address] [place] [address] BARBITURATE Negative Normal NEGATIVE [facility] Comment on above: Performed By: #### T OXPN ####[employer] [facility] [address] [place] [address] COCAINE METABOLITE Negative Normal NEGATIVE [facility] Comment on above: Performed By: #### T OXPN ####[facility] [address] [place] [address] OXYCODONE Negative Normal NEGATIVE [facility] Comment on above: Performed By: #### T OXPN ####[facility] [address] [place] [place] [address] Urine, benzodiazepines presence Negative Normal NEGATIVE [facility] Comment on above: Performed By: #### T OXPN ####[facility] [address] [place] [address] Urine, cannabinoids presence Negative Normal NEGATIVE [facility] Comment on above: Performed By: #### T OXPN ####[facility] [address] [place] [place] [address] Urine, opiates presence Positive Normal NEGATIVE [facility] Comment on above: Performed By: #### T OXPN ####[facility] [address] [place] [address] Urine, phencyclidine presence Negative Normal NEGATIVE [facility] Comment on above: Result Comment: A N egative result for a drug abuse screen test indicates that the drug concentration is below the following cutoffs: Amphetamine/Methamphetamine 1000 ng/ml Barbiturate 200 ng/ml Benzodiazapine 200 ng/ml Cannabinoids 50 ng/ml Cocaine Metabolite 300 ng/ml Opiates 300 ng/ml Oxycodone 100 ng/ml Phencyclidine 25 ng/mlA Positive result for a drug abuse screen test should be considered presumptive positive until/unless confirmed by another method. (Additional request)Quantitative values from a reference laboratory are available upon additional request.These results are for medical use only. Performed By: #### T OXPN ####[facility] [address] [place] [address] URINE REFLEX C + Son 017 Bilirubin Ql (U) Negative Normal NEGATIVE [facility] Comment on above: Performed By: #### U R_CS ####[facility] [address] [place] [address] BLOOD Negative Normal NEGATIVE [facility] Comment on above: Performed By: #### U R_CS ####[facility] [address] [place] [address] Glucose mass conc Negative Normal NEGATIVE [facility] Comment on above: Performed By: #### U R_CS ####[facility] [address] [place] [address] pH of blood 6.0 [pH] Normal 5.0 - 9.[address] [facility] Comment on above: Performed By: #### U R_CS ####[facility] [address] [place] [address] Protein Negative Normal NEGATIVE [facility] Comment on above: Performed By: #### U R_CS ####[facility] [address] [place] [address] Urine, character CLEAR Normal CLEAR-SL C [facility] Comment on above: Performed By: #### U R_CS ####[facility] [address] [place] [address] Urine, color YELLOW Normal STRAW-YELL [facility] Comment on above: Performed By: #### U R_CS ####[facility] [address] [place] [address] Urine, ketones presence Negative Normal NEGATIVE [facility] Comment on above: Performed By: #### U R_CS ####[facility] [address] [place] [address] Urine, nitrite presence Negative Normal NEGATIVE [facility] Comment on above: Performed By: #### U R_CS ####[facility] [address] [place] [address] Urine, specific gravity 1.021 Normal 1.002-1.03 [facility] Comment on above: Performed By: #### U R_CS ####[facility] [address] [place] [address] Urine, urobilinogen 0.2 {Ivan'U}/dL Normal 0.0 - 1. [address] [facility] Comment on above: Performed By: #### U R_CS ####[facility] [employer] [address] [place] [address] WBC (Leukocytes) Negative Normal NEGATIVE [facility] Comment on above: Performed By: #### U R_CS ####[facility] [address] [place] [address] XR CHEST STANDARD TWO VWon 0 02-02-2017 XR CHEST STANDARD TWO VW PROCEDURE: XR CHEST STANDARD TWO VWCLINICAL INFORMATION: sob, COMPARISON: 1 monthTECHNIQUE: Chest PA and lateral views.FINDINGS:Cardiovascul ar: The heart size and pulmonary vasculature are within normal limits.Lung/pleura: No acute pulmonary infiltrate or pleural effusion.Other: Shoulder degenerative changes. Minimal spinal curvatureIMPRESSION: No acute intrathoracic abnormality is identified.*This report may contain minor errors which are inherent in voice recognition technology.Final report electronically signed by Dr. Henry Alexis on 02/01/2017 10:32 PMInterpreted by:Henry Alexis, DOSigned by:Henry Alexis, DO02/01/17Final result Normal [facility] ANION GAPon 02-01-2017 Anion gap 15.0 mmol/L Normal 8.0-16.[address] [facility] Comment on above: Result Comment: ANIO N GAP = Sodium -(Chloride + CO2) Performed By: #### C BC, BMP, HEPPA, LIPAS, MG, ANION, EGFR1, OSMOL ####[facility] [address] [place] [address] BASIC METABOL PANELon 2016 Calcium 9.2 mg/dL Normal 8.5-10.[address] [facility] Comment on above: Performed By: #### C BC, BMP, HEPPA, LIPAS, MG, ANION, EGFR1, OSMOL ####[employer] [address] [place] [address] Chloride 99 mmol/L Normal 98-[address] [facility] Comment on above: Performed By: #### C BC, BMP, HEPPA, LIPAS, MG, ANION, EGFR1, OSMOL ####[facility] [employer] [address] [place] [address] CO2 23 mmol/L Normal 23-[address] [facility] Comment on above: Performed By: #### C BC, BMP, HEPPA, LIPAS, MG, ANION, EGFR1, OSMOL ####[address] [place] [address] Creatinine 0.8 mg/dL Normal 0.4-1.[address] [facility] Comment on above: Performed By: #### C BC, BMP, HEPPA, LIPAS, MG, ANION, EGFR1, OSMOL ####[address] [place] [address] Glucose mass conc 95 mg/dL Normal 70-[address] [facility] Comment on above: Performed By: #### C BC, BMP, HEPPA, LIPAS, MG, ANION, EGFR1, OSMOL ####[place] [address] Potassium molar conc 4.3 mmol/L Normal 3.5-5.2 [facility] Comment on above: Performed By: #### C BC, BMP, HEPPA, LIPAS, MG, ANION, EGFR1, OSMOL ####[place] [address] Sodium 137 mmol/L Normal 135-[address] [facility] Comment on above: Performed By: #### C BC, BMP, HEPPA, LIPAS, MG, ANION, EGFR1, OSMOL ####[place] [address] Urea nitrogen 11 mg/dL Normal 7-[address] [facility] Comment on above: Performed By: #### C BC, BMP, HEPPA, LIPAS, MG, ANION, EGFR1, OSMOL ####[place] [address] CALCULATED OSMOLALITYon 01-19 Osmolality 273.0 mOsmol/kg Low 275.0-300. [facility] Comment on above: Performed By: #### C BC, BMP, HEPPA, LIPAS, MG, ANION, EGFR1, OSMOL ####[place] [address] CBC WITH DIFFERENTIALon 01-19 Anisocytosis presence 1 Normal [facility] Comment on above: Performed By: #### C BC, BMP, HEPPA, LIPAS, MG, ANION, EGFR1, OSMOL ####[place] [address] Basophils Auto #/vol (Bld) 0.0 thou/mm3 Normal 0.0-0.[address] [facility] Comment on above: Performed By: #### C BC, BMP, HEPPA, LIPAS, MG, ANION, EGFR1, OSMOL ####[place] [address] Basophils/100 WBC Auto (Bld) 0.5 % Normal [facility] Comment on above: Performed By: #### C BC, BMP, HEPPA, LIPAS, MG, ANION, EGFR1, OSMOL ####[place] [address] Eosinophils 0.2 thou/mm3 Normal 0.0-0.[address] [facility] Comment on above: Performed By: #### C BC, BMP, HEPPA, LIPAS, MG, ANION, EGFR1, OSMOL ####[place] [address] Eosinophils/100 leukocytes 2.0 % Normal [facility] Comment on above: Performed By: #### C BC, BMP, HEPPA, LIPAS, MG, ANION, EGFR1, OSMOL ####[place] [address] Erythrocyte distribution width Auto Ratio (RBC) 15.1 % High 11.5-14.[address] [facility] Comment on above: Performed By: #### C BC, BMP, HEPPA, LIPAS, MG, ANION, EGFR1, OSMOL ####[place] [address] Erythrocytes (RBC) 5.08 mill/mm3 Normal 4.20-5.40 [facility] Comment on above: Performed By: #### C BC, BMP, HEPPA, LIPAS, MG, ANION, EGFR1, OSMOL ####[address] [address] Erythrocytes (RBC) 0 /[address] [facility] Comment on above: Performed By: #### C BC, BMP, HEPPA, LIPAS, MG, ANION, EGFR1, OSMOL ####[place] [address] Hematocrit (HCT) 47.3 % High 37.0-47.[address] [facility] Comment on above: Performed By: #### C BC, BMP, HEPPA, LIPAS, MG, ANION, EGFR1, OSMOL ####[place] [address] Hemoglobin mass conc (Bld) 16.2 gm/dl High 12.0-16.[address] [facility] Comment on above: Performed By: #### C BC, BMP, HEPPA, LIPAS, MG, ANION, EGFR1, OSMOL ####[place] [address] Lymphocytes 3.4 thou/mm3 Normal 1.0-4.[address] [facility] Comment on above: Performed By: #### C BC, BMP, HEPPA, LIPAS, MG, ANION, EGFR1, OSMOL ####[place] [address] Lymphocytes/100 leukocytes 35.2 % Normal [facility] Comment on above: Performed By: #### C BC, BMP, HEPPA, LIPAS, MG, ANION, EGFR1, OSMOL ####[place] [address] MCH 31.9 pg High 27.0-31.[address] [facility] Comment on above: Performed By: #### C BC, BMP, HEPPA, LIPAS, MG, ANION, EGFR1, OSMOL ####[place] [address] MCHC mass conc (RBC) 34.3 gm/dl Normal 33.0-37.0 [facility] Comment on above: Performed By: #### C BC, BMP, HEPPA, LIPAS, MG, ANION, EGFR1, OSMOL ####[place] [address] MCV 93.1 fL Normal 81.0-99.[address] [facility] Comment on above: Performed By: #### C BC, BMP, HEPPA, LIPAS, MG, ANION, EGFR1, OSMOL ####[place] [address] Monocytes 0.7 thou/mm3 Normal 0.4-1.[address] [facility] Comment on above: Performed By: #### C BC, BMP, HEPPA, LIPAS, MG, ANION, EGFR1, OSMOL ####[place] [address] Monocytes/100 leukocytes 7.5 % Normal [facility] Comment on above: Performed By: #### C BC, BMP, HEPPA, LIPAS, MG, ANION, EGFR1, OSMOL ####[place] [address] Platelet mean volume (PMV) 8.6 mcm Normal 7.4-10.[address] [facility] Comment on above: Performed By: #### C BC, BMP, HEPPA, LIPAS, MG, ANION, EGFR1, OSMOL ####[place] [address] Platelets 288 thou/mm3 Normal 130-[address] [facility] Comment on above: Performed By: #### C BC, BMP, HEPPA, LIPAS, MG, ANION, EGFR1, OSMOL ####[place] [address] SEGS 54.8 % Normal [facility] Comment on above: Performed By: #### C BC, BMP, HEPPA, LIPAS, MG, ANION, EGFR1, OSMOL ####[place] [address] SEGS ABSOLUTE COUNT 5.3 thou/mm3 Normal 1.8-7.7 [facility] Comment on above: Performed By: #### C BC, BMP, HEPPA, LIPAS, MG, ANION, EGFR1, OSMOL ####[place] [address] WBC (Leukocytes) 9.6 thou/mm3 Normal 4.8-10.[address] 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 ETHYL ALCOHOL BLOODon 2016 ETHYL ALCOHOL BLOOD < 0.[address] [facility] Comment on above: Performed By: #### E TOHS, NTBNP, TROPT, TSH3 ####[facility] [address] [place] [address] GFR, ESTIMATEDon 02-01-2017 eGFR (MDRD) 73 ml/min/1.73m2 Abnormal [facility] Comment on above: Result Comment: Bjorn hood Description GFR, ml/min/1.73 m2 - At increased risk > or = 60 (with chronic kidney disease risk factors) 1 Normal or increased GFR > or = 90 2 Mildly or decreased GFR 60 - 89 3 Moderately decreased GFR 30 - 59 4 Severely decreased GFR 15 - 29 5 Kidney failure <15 (or dialysis)Estimated GFR calculated using abbreviated MDRD formula asrecommended by [employer]. Calculation basedupon serum creatinine and adjusted for age, gender & race.[employer]. Internal Med., Vol. 139 (2) pg 137-147. Performed By: #### C BC, BMP, HEPPA, LIPAS, MG, ANION, EGFR1, OSMOL ####[facility] [employer] [address] [place] [address] HEPATIC FUNCTION PANELon Alanine aminotransferase (ALT) 55 U/L Normal 11-[address] [facility] Comment on above: Performed By: #### C BC, BMP, HEPPA, LIPAS, MG, ANION, EGFR1, OSMOL ####[facility] [employer] [facility] [address] [place] [address] Albumin 3.9 g/dL Normal 3.5-5.[address] [facility] Comment on above: Performed By: #### C BC, BMP, HEPPA, LIPAS, MG, ANION, EGFR1, OSMOL ####[address] [address] Alkaline phosphatase (ALP) 125 U/L Normal 38-[address] [facility] Comment on above: Performed By: #### C BC, BMP, HEPPA, LIPAS, MG, ANION, EGFR1, OSMOL ####[address] [address] Aspartate aminotransferase (AST) 44 U/L High 5-[address] [facility] Comment on above: Performed By: #### C BC, BMP, HEPPA, LIPAS, MG, ANION, EGFR1, OSMOL ####[place] [address] Bilirubin (total) mg/dL Normal 0.0-0.[address] [facility] Comment on above: Performed By: #### C BC, BMP, HEPPA, LIPAS, MG, ANION, EGFR1, OSMOL ####[place] [address] Bilirubin Ql (U) 0.4 mg/dL Normal 0.3-1.[address] [facility] Comment on above: Performed By: #### C BC, BMP, HEPPA, LIPAS, MG, ANION, EGFR1, OSMOL ####[address] [address] Protein 7.9 g/dL Normal 6.1-8.[address] [facility] Comment on above: Performed By: #### C BC, BMP, HEPPA, LIPAS, MG, ANION, EGFR1, OSMOL ####[address] [address] LIPASEon 02-01-2017 Lipase 19.3 U/L Normal 5.6-51.[address] [facility] Comment on above: Performed By: #### C BC, BMP, HEPPA, LIPAS, MG, ANION, EGFR1, OSMOL ####[address] [address] MAGNESIUMon 02-01-2017 Magnesium 2.0 mg/dL Normal 1.6-2.[address] [facility] Comment on above: Performed By: #### C BC, BMP, HEPPA, LIPAS, MG, ANION, EGFR1, OSMOL ####[facility] [address] [place] [address] NT PRO-B NATRIURETIC PEPTIDE on 02-01-2017 BNP 234.1 pg/mL Normal 0.0-900.[address] [facility] Comment on above: Result Comment: Valu es < 300 pg/ml rule out, or make the probability of heart failure highly unlikely. Values which rule in heart failue are as follows: AGE RANGE <50 years >450 pg/ml 50-75 years >900 pg/ml >75 years >1800 pg/ml Performed By: #### E TOMALINA, NTBNP, TROPT, TSH3 ####[facility] [place] [address] TROPONIN-Ton 02-01-2017 Troponin T.cardiac mass conc ug/L Normal [facility] Comment on above: Result Comment: <0.0 10 ng/ml Normal> or = 0.010 ng/ml Elevated (99%) Consistent with myocardial damageCardiac troponin values can be elevated by many disease states in additionto acute ischemia. These include, but are not limited to: chronic renalfailure, CHF, CVA, pulmonary embolus, COPD, myocardial trauma/surgery,myocarditis, pericarditis, tachycardia, aortic dissection, amyloidosis,sepsis and strenuous exercise. Serial measurement of troponin is stronglyrecommended as a first step in determining whether a low level elevationrepresents an acute or chronic condition. Performed By: #### E TOMALINA NTBNP, TROPT, TSH3 ####[facility] [address] [place] [address] TSH THIRD GENERATIONon 02-01 TSH THIRD GENERATION 0.828 uIU/mL Normal 0.400-4.20 [facility] Comment on above: Performed By: #### E TOMALINA, NTBNP, TROPT, TSH3 ####[facility] [address] [place] [address] Hematologyon 01-22-2017 aPTT Coag time (Bld) 35.7 s Invalid Interpretation Code 31.8-42.0 [facility] Work Phone: Prothrombin time (PT) Coag time (PPP) 13.90 s Invalid Interpretation Code 12.5-14.7 [facility] Work Phone: [phone] Otheron 01-22-2017 <0.2 Invalid Interpretation Code <1.0 [facility] Work Phone: [phone] 39.9 Invalid Interpretation Code 34.1-44.7 [facility] Work Phone: [phone] Invalid Interpretation Code <14 [facility] Work Phone: <1.0 Invalid Interpretation Code SEE BELOW [facility] Work Phone: [phone] Invalid Interpretation Code 10-40 [facility] Work Phone: [phone] Invalid Interpretation Code SEE BELOW [facility] Work Phone: [phone] Invalid Interpretation Code 90-180 [facility] Work Phone: [phone] 6.3 Invalid Interpretation Code 2.8-6.8 [facility] Work Phone: [phone] Invalid Interpretation Code 0-30 [facility] Work Phone: [phone] Invalid Interpretation Code NEGATIVE AT 1:80 [facility] Work Phone: [phone] Invalid Interpretation Code <15 [facility] Work Phone: [phone] Invalid Interpretation Code <13 [facility] Work Phone: [phone] 11.6 Invalid Interpretation Code SEE BELOW [facility] Work Phone: [phone] NOT INDICATED Invalid Interpretation Code <1:20 [facility] Work Phone: 2.8 Invalid Interpretation Code <=20.0 [facility] Work Phone: [phone] Invalid Interpretation Code [facility] Work Phone: 0=No Invalid Interpretation Code [facility] Work Phone: 3 Invalid Interpretation Code [facility] Work Phone: [phone] Risk Level 1=3 or < Invalid Interpretation Code [facility] Work Phone: [phone] 0=N/A Invalid Interpretation Code [facility] Work Phone: 1=Controlled Invalid Interpretation Code [facility] Work Phone: Needs Completed Invalid Interpretation Code [facility] Work Phone: 1=Yes Invalid Interpretation Code [facility] Work Phone: CBC WITH DIFFERENTIALon 12-19 Basophils Auto #/vol (Bld) 0.0 thou/mm3 Normal 0.0-0.[address] [facility] Comment on above: Performed By: #### C BC ####[facility] [address] [place] [address] Basophils/100 WBC Auto (Bld) 0.3 % Normal [facility] Comment on above: Performed By: #### C BC ####[address] [place] [address] Eosinophils 0.3 thou/mm3 Normal 0.0-0.[address] [facility] Comment on above: Performed By: #### C BC ####[facility] [address] [place] [address] Eosinophils/100 leukocytes 2.3 % Normal [facility] Comment on above: Performed By: #### C BC ####[facility] [address] [place] [address] Erythrocyte distribution width Auto Ratio (RBC) 14.3 % Normal 11.5-14.[address] [facility] Comment on above: Performed By: #### C BC ####[facility] [address] [place] [address] Erythrocytes (RBC) 5.11 mill/mm3 Normal 4.20-5.40 [facility] Comment on above: Performed By: #### C BC ####[facility] [address] [place] [address] Erythrocytes (RBC) 0 /[address] [facility] Comment on above: Performed By: #### C BC ####[facility] [address] [place] [address] Hematocrit (HCT) 46.9 % Normal 37.0-47.[address] [facility] Comment on above: Performed By: #### C BC ####[facility] [address] [place] [facility] [place] [address] Hemoglobin mass conc (Bld) 15.7 gm/dl Normal 12.0-16.[address] [facility] Comment on above: Performed By: #### C BC ####[facility] [address] [place] [address] Lymphocytes 3.9 thou/mm3 Normal 1.0-4.[address] [facility] Comment on above: Performed By: #### C BC ####[facility] [address] [place] [address] Lymphocytes/100 leukocytes 31.8 % Normal [facility] Comment on above: Performed By: #### C BC ####[facility] [address] [place] [address] MCH 30.7 pg Normal 27.0-31.[address] [facility] Comment on above: Performed By: #### C BC ####[facility] [address] [place] [address] MCHC mass conc (RBC) 33.4 gm/dl Normal 33.0-37.0 [facility] Comment on above: Performed By: #### C BC ####[facility] [address] [place] [address] MCV 91.9 fL Normal 81.0-99.[address] [facility] Comment on above: Performed By: #### C BC ####[facility] [address] [place] [facility] [place] [address] Monocytes 0.9 thou/mm3 Normal 0.4-1.[address] [facility] Comment on above: Performed By: #### C BC ####[facility] [address] [place] [address] Monocytes/100 leukocytes 7.1 % Normal [facility] Comment on above: Performed By: #### C BC ####[facility] [address] [place] [address] Platelet mean volume (PMV) 8.0 mcm Normal 7.4-10.[address] [facility] Comment on above: Performed By: #### C BC ####[facility] [address] [place] [address] Platelets 348 thou/mm3 Normal 130-[address] [facility] Comment on above: Performed By: #### C BC ####[facility] [address] [place] [address] SEGS 58.5 % Normal [facility] Comment on above: Performed By: #### C BC ####[employer] [address] [place] [address] SEGS ABSOLUTE COUNT 7.3 thou/mm3 Normal 1.8-7.7 [facility] Comment on above: Performed By: #### C BC ####[facility] [address] [place] [address] WBC (Leukocytes) 12.4 thou/mm3 High 4.8-10.[address] [facility] Comment on above: Performed By: #### C BC ####[facility] [address] [place] [address] Erythrocyte morphology NORMAL Normal [facility] Comment on above: Performed By: #### C BC ####[facility] [address] [place] [address] CT CHEST W WO CONTRASTon CT CHEST W WO CONTRAST PROCEDURE: CT GRABIEL ST W WO CONTRASTCLINICAL INFORMATION: Lung nodule seen on imaging studyCOMPARISON: No prior CT of the chest for comparison. Limited comparison is made to the CTA abdominal aorta with runoff of 10 December 2016.TECHNIQUE: With the patient in supine position, axial images were obtained extending from the base of the neck to the superior abdomen prior to and after the uneventful administration of IV contrast (Isovue-370, 85 mL). Images were reconstructed in the axial, coronal, and sagittal planes at [address] scans at this facility use dose modulation, iterative reconstruction, and/or weight-based dosing when appropriate to reduce the radiation dose to as low as reasonably achievableFINDINGS: The lung volumes are within normal limits. No focal areas to indicate definite infiltrate/pneumonia minimal amounts of pleural thickening along the inferior left major fissure.There is a redemonstrated and grossly stable 7 mm nodule of the right lower lobe, image 32 of the axial series. Some features suggest partially mineralized component.There are no other areas of definite abnormal mass. The interstitium is nonspecific. Minimal amounts of subpleural fibrosis noted along the right anterior upper lobe.There is no pneumothorax or pleural effusion.There are no pathologically enlarged hilar or mediastinal lymph nodes. Tracheobronchial structures are satisfactory. Thoracic aorta shows no concerning findings. The pulmonary vasculature is acceptable. There is no acute cardiac process.Images of the superior abdomen show characteristics of likely hepatic steatosis. Prior cholecystectomy changes evident.The osseous framework and overlying soft tissues are grossly satisfactory, though degenerative changes are present through the osseous framework.IMPRESSION: REDEMONSTRATED NODULE OF THE RIGHT LOWER LOBE, 7 MM DIAMETER. IT HAS NOT APPRECIABLY CHANGED WITH RESPECT TO SIZE OR ATTENUATION. THIS IS A LUNG RADS CATEGORY 3 LESION, AND REPEAT CT IMAGING OF THE CHEST IN 6 MONTHS TO CONFIRM STABILITY IS RECOMMENDED.This report has been created using voice recognition software. It may contain minor errors which are inherent in voice recognition technology.Final report electronically signed by Dr. Jim Sun on 01/04/2017 6:49 PMInterpreted by:PHONG Jenkinsigned by:Jim Sun MD01/04/17Final result Normal [facility] Hematologyon 01-04-2017 Basophils/100 WBC Auto (Bld) 0.3 % Invalid Interpretation Code [facility] Work Phone: Eosinophils Auto #/vol (Bld) 2.3 10*3/uL Invalid Interpretation Code [facility] Work Phone: Eosinophils Auto #/vol (Bld) 0.3 10*3/uL Invalid Interpretation Code 0.0-0.4 [facility] Work Phone: Erythrocyte distribution width Auto Ratio (RBC) 14.3 % Invalid Interpretation Code 11.5-14.5 [facility] Work Phone: Hematocrit Auto Volume Fraction (Bld) 46.90 % Invalid Interpretation Code 37.0-47.0 [facility] Work Phone: Hemoglobin mass conc (Bld) 15.70 g/dL Invalid Interpretation Code 12.0-16.0 [facility] Work Phone: Lymphocytes Auto #/vol (Bld) 3.9 10*3/uL Invalid Interpretation Code 1.0-4.8 [facility] Work Phone: Lymphocytes Auto #/vol (Bld) 31.8 10*3/uL Invalid Interpretation Code [facility] Work Phone: MCH Auto Entitic mass (RBC) 30.7 pg Invalid Interpretation Code 27.0-31.0 [facility] Work Phone: MCHC Auto mass conc (RBC) 33.4 g/dL Invalid Interpretation Code 33.0-37.0 [facility] Work Phone: MCV Auto Entitic volume (RBC) 91.9 fL Invalid Interpretation Code 81.0-99.0 [facility] Work Phone: Monocytes Auto #/vol (Bld) 7.1 10*3/uL Invalid Interpretation Code [facility] Work Phone: Monocytes Auto #/vol (Bld) 0.9 10*3/uL Invalid Interpretation Code 0.4-1.3 [facility] Work Phone: Platelet mean volume Auto Entitic volume (Bld) 8.0 fL Invalid Interpretation Code 7.4-10.4 [facility] Work Phone: RBC Auto #/vol (Bld) 5.11 10*6/uL Invalid Interpretation Code 4.20-5.40 [facility] Work Phone: WBC Auto #/vol (Bld) 12.40 10*3/uL Invalid Interpretation Code 4.8-10.8 [facility] Work Phone: Otheron 01-04-2017 RBC shape Nom (Bld) NORMAL Invalid Interpretation Code [facility] Work Phone: WBC LM Ql (Sput) 12.40 x10E3/uL Invalid Interpretation Code 4.8-10.8 [facility] Work Phone: 0.0 Invalid Interpretation Code 0.0-0.1 [facility] Work Phone: 7.3 Invalid Interpretation Code 1.8-7.7 [facility] Work Phone: 0 Invalid Interpretation Code [facility] Work Phone: 58.5 Invalid Interpretation Code [facility] Work Phone: 348 Invalid Interpretation Code 130-400 [facility] Work Phone: ANION GAPon 12-28-2016 Anion gap 16.0 mmol/L Normal 8.0-16.[address] [facility] Comment on above: Result Comment: ANIO N GAP = Sodium -(Chloride + CO2) Performed By: #### C BC, TROPT, BMP, ANION, EGFR1, OSMOL, SCAN1 ####[facility] [address] [place] [address] BASIC METABOL PANELon 2016 Calcium 8.9 mg/dL Normal 8.5-10.[address] [facility] Comment on above: Performed By: #### C BC, TROPT, BMP, ANION, EGFR1, OSMOL, SCAN1 ####[facility] [address] [place] [address] Chloride 101 mmol/L Normal 98-[address] [facility] Comment on above: Performed By: #### C BC, TROPT, BMP, ANION, EGFR1, OSMOL, SCAN1 ####[facility] [address] [place] [address] CO2 22 mmol/L Low 23-[address] [facility] Comment on above: Performed By: #### C BC, TROPT, BMP, ANION, EGFR1, OSMOL, SCAN1 ####[facility] [address] [place] [address] Creatinine 0.7 mg/dL Normal 0.4-1.[address] [facility] Comment on above: Performed By: #### C BC, TROPT, BMP, ANION, EGFR1, OSMOL, SCAN1 ####[facility] [address] [place] [address] Glucose mass conc 141 mg/dL High 70-[address] [facility] Comment on above: Performed By: #### C BC, TROPT, BMP, ANION, EGFR1, OSMOL, SCAN1 ####[place] [address] Potassium molar conc 4.3 mmol/L Normal 3.5-5.2 [facility] Comment on above: Performed By: #### C BC, TROPT, BMP, ANION, EGFR1, OSMOL, SCAN1 ####[place] [address] Sodium 139 mmol/L Normal 135-[address] [facility] Comment on above: Performed By: #### C BC, TROPT, BMP, ANION, EGFR1, OSMOL, SCAN1 ####[place] [address] Urea nitrogen 12 mg/dL Normal 7-[address] [facility] Comment on above: Performed By: #### C BC, TROPT, BMP, ANION, EGFR1, OSMOL, SCAN1 ####[place] [address] CALCULATED OSMOLALITYon 12-19 Osmolality 279.7 mOsmol/kg Normal 275.0-300. [facility] Comment on above: Performed By: #### C BC, TROPT, BMP, ANION, EGFR1, OSMOL, SCAN1 ####[place] [address] CBC WITH DIFFERENTIALon 12-19 Platelets ADEQUATE Normal [facility] Comment on above: Performed By: #### C BC, TROPT, BMP, ANION, EGFR1, OSMOL, SCAN1 ####[place] [address] Basophils Auto #/vol (Bld) 0.1 thou/mm3 Normal 0.0-0.[address] [facility] Comment on above: Performed By: #### C BC, TROPT, BMP, ANION, EGFR1, OSMOL, SCAN1 ####[place] [address] Basophils/100 WBC Auto (Bld) 0.3 % Normal [facility] Comment on above: Performed By: #### C BC, TROPT, BMP, ANION, EGFR1, OSMOL, SCAN1 ####[facility] [address] [place] [address] Eosinophils 0.0 thou/mm3 Normal 0.0-0.[address] [facility] Comment on above: Performed By: #### C BC, TROPT, BMP, ANION, EGFR1, OSMOL, SCAN1 ####[place] [address] Eosinophils/100 leukocytes 0.2 % Normal [facility] Comment on above: Performed By: #### C BC, TROPT, BMP, ANION, EGFR1, OSMOL, SCAN1 ####[place] [address] Erythrocyte distribution width Auto Ratio (RBC) 14.3 % Normal 11.5-14.[address] [facility] Comment on above: Performed By: #### C BC, TROPT, BMP, ANION, EGFR1, OSMOL, SCAN1 ####[place] [address] Erythrocytes (RBC) 0 /[address] [facility] Comment on above: Performed By: #### C BC, TROPT, BMP, ANION, EGFR1, OSMOL, SCAN1 ####[place] [address] Erythrocytes (RBC) 4.86 mill/mm3 Normal 4.20-5.40 [facility] Comment on above: Performed By: #### C BC, TROPT, BMP, ANION, EGFR1, OSMOL, SCAN1 ####[place] [address] Hematocrit (HCT) 44.8 % Normal 37.0-47.[address] [facility] Comment on above: Performed By: #### C BC, TROPT, BMP, ANION, EGFR1, OSMOL, SCAN1 ####[place] [address] Hemoglobin mass conc (Bld) 15.3 gm/dl Normal 12.0-16.[address] [facility] Comment on above: Performed By: #### C BC, TROPT, BMP, ANION, EGFR1, OSMOL, SCAN1 ####[facility] [address] [place] [address] Lymphocytes 2.3 thou/mm3 Normal 1.0-4.[address] [facility] Comment on above: Performed By: #### C BC, TROPT, BMP, ANION, EGFR1, OSMOL, SCAN1 ####[facility] [address] [place] [address] Lymphocytes/100 leukocytes 13.0 % Normal [facility] Comment on above: Performed By: #### C BC, TROPT, BMP, ANION, EGFR1, OSMOL, SCAN1 ####[address] [place] [address] MCH 31.4 pg High 27.0-31.[address] [facility] Comment on above: Performed By: #### C BC, TROPT, BMP, ANION, EGFR1, OSMOL, SCAN1 ####[place] [address] MCHC mass conc (RBC) 34.1 gm/dl Normal 33.0-37.0 [facility] Comment on above: Performed By: #### C BC, TROPT, BMP, ANION, EGFR1, OSMOL, SCAN1 ####[place] [address] MCV 92.1 fL Normal 81.0-99.[address] [facility] Comment on above: Performed By: #### C BC, TROPT, BMP, ANION, EGFR1, OSMOL, SCAN1 ####[place] [address] Monocytes 1.3 thou/mm3 Normal 0.4-1.[address] [facility] Comment on above: Performed By: #### C BC, TROPT, BMP, ANION, EGFR1, OSMOL, SCAN1 ####[place] [address] Monocytes/100 leukocytes 7.3 % Normal [facility] Comment on above: Performed By: #### C BC, TROPT, BMP, ANION, EGFR1, OSMOL, SCAN1 ####[address] [place] [address] Platelet mean volume (PMV) 8.7 mcm Normal 7.4-10.[address] [facility] Comment on above: Performed By: #### C BC, TROPT, BMP, ANION, EGFR1, OSMOL, SCAN1 ####[facility] [address] [place] [address] Platelets 312 thou/mm3 Normal 130-[address] [facility] Comment on above: Performed By: #### C BC, TROPT, BMP, ANION, EGFR1, OSMOL, SCAN1 ####[facility] [address] [place] [address] SEGS 79.2 % Normal [facility] Comment on above: Performed By: #### C BC, TROPT, BMP, ANION, EGFR1, OSMOL, SCAN1 ####[facility] [address] [place] [address] SEGS ABSOLUTE COUNT 14.0 thou/mm3 High 1.8-7.7 [facility] Comment on above: Performed By: #### C BC, TROPT, BMP, ANION, EGFR1, OSMOL, SCAN1 ####[facility] [address] [place] [address] WBC (Leukocytes) 17.7 thou/mm3 High 4.8-10.[address] [facility] Comment on above: Performed By: #### C BC, TROPT, BMP, ANION, EGFR1, OSMOL, SCAN1 ####[facility] [address] [place] [address] Erythrocyte morphology NORMAL Normal [facility] Comment on above: Performed By: #### C BC, TROPT, BMP, ANION, EGFR1, OSMOL, SCAN1 ####[facility] [address] [place] [address] CONSULTATIONon 12-28-2016 CONSULTATION [facility] ATIENT NAME: WILBERT JOHNSON : 56MED REC NO: [id number] ROOM:ACCOUNT NO: [id number] ADMISSION DATE: 12/28/16PHYSICIAN[facility] COMPLAINT: Left triceps abscess.HISTORY OF PRESENT ILLNESS: The patient is a 56-year-old female whopresents for evaluation for an abscess mass in her left arm. Thepatient is in [facility] for [facility] rehab. Shestates that she uses IV heroin, but states that she presently injectedinto the subcutaneous tissue as she does not mainline. She has hadrecurrent abscesses and apparently presented to the emergency roomyesterday, had an I and D performed, but since that time it has grownin size. She presented to the emergency room. A CT scan wasperformed showing a loculated fluid collection. She is being admittedto the medicine services, surgeries, and consulted for possible I andD.PAST MEDICAL HISTORY: Basically includes the drug abuse. She alsohas a history of depression, history of hypertension.PAST SURGICAL HISTORY: Surgeries includes a lap cholecystectomy andan orthopedic procedure on the left knee with a jeremy secondary tofracture of the left lower leg.HOME MEDICATIONS: Includes Peridex, Catapres, Flexeril, Zestril,Zyprexa, Zoloft, Desyrel, Ambien, Imodium, Keflex, and Bactrim.SOCIAL HISTORY: Again, the patient is an unfortunate drug abuser.REVIEW OF SYSTEMS: A 10-point review of systems is otherwisenegative.PHYSICAL EXAMINATION:General: The patient is a slender 56-year-old black female whoappears her age.Head, Ears, Eyes, Nose, and Throat: No scleral icterus.Cardiovascular: S1 and S2.Respirations: Clear.Abdomen: Soft.Extremities: The patient has a painful large mass in the left biceps,triceps area of the left upper arm. Tender to touch. The cruciateincision made previously is identified, it is not seeping at thistime.X-RAYS: The patient had a CT scan of her left upper arm and has acomplex septated fluid collection with subcutaneous tissue along thelateral margin of the left upper arm measuring 7.7 x 2.8 x 3.7 cm. There is extensive subcutaneous edema and skin thickening throughout.LABORATORY DATA: Revealed sodium 137, potassium 4.3, BUN of 8,creatinine of 0.6. Liver function test were normal except for an ASTof 65. The patient had a white count of 10.6 with a hemoglobin of10.4.ASSESSMENT AND PLAN: Probable abscess, septated hematoma, left upperarm. The patient will be taken to surgery for further I and D.Thank you very much.TATYANA Cunningham LINDA, MDD:01/11/2017 14:20:08 [email or web address]#: [id number] Doc#: [id number]: This report is an unsigned version. If any amendments were made to the final version prior to authentication, it is available in [employer] at [place], [place]. If you wish to review a final copy, please view the document in [employer], or, contact [phone] for a copy. There may be a final document in PDF form. Normal [facility] Consulton 12-28-2016 HIM IP Note OR Reaming Machine Tender Normal [facility] ED Noteon 12-28-2016 HIM IP Note OR Reaming Machine Tender Normal [facility] HIM IP Note OR Reaming Machine Tender Normal [facility] HIM IP Note OR Reaming Machine Tender Normal [facility] HIM IP Note OR Reaming Machine Tender Normal [facility] HIM IP Note OR Reaming Machine Tender Normal [facility] HIM IP Note OR Reaming Machine Tender Normal [facility] HIM IP Note OR Reaming Machine Tender Normal [facility] HIM IP Note OR Reaming Machine Tender Normal [facility] GFR, ESTIMATEDon 12-28-2016 eGFR (MDRD) 86 ml/min/1.73m2 Abnormal [facility] Comment on above: Result Comment: Stag e Description GFR, ml/min/1.73 m2 - At increased risk > or = 60 (with chronic kidney disease risk factors) 1 Normal or increased GFR > or = 90 2 Mildly or decreased GFR 60 - 89 3 Moderately decreased GFR 30 - 59 4 Severely decreased GFR 15 - 29 5 Kidney failure <15 (or dialysis)Estimated GFR calculated using abbreviated MDRD formula asrecommended by National Kidney Foundation. Calculation basedupon serum creatinine and adjusted for age, gender & race.[employer]. Internal Med., Vol. 139 (2) pg 137-147. Performed By: #### C BC, TROPT, BMP, ANION, EGFR1, OSMOL, SCAN1 ####[place] [address] SCAN OF BLOOD SMEARon 2016 SCAN OF BLOOD SMEAR see below Normal [facility] Comment on above: Result Comment: Marce alvarenga Exceeded; Scan of Differential Slide Performed Performed By: #### C BC, TROPT, BMP, ANION, EGFR1, OSMOL, SCAN1 ####[employer] [address] [place] [address] TROPONIN-Ton 12-28-2016 Troponin T.cardiac mass conc ug/L Normal [facility] Comment on above: Result Comment: <0.0 10 ng/ml Normal> or = 0.010 ng/ml Elevated (99%) Consistent with myocardial damageCardiac troponin values can be elevated by many disease states in additionto acute ischemia. These include, but are not limited to: chronic renalfailure, CHF, CVA, pulmonary embolus, COPD, myocardial trauma/surgery,myocarditis, pericarditis, tachycardia, aortic dissection, amyloidosis,sepsis and strenuous exercise. Serial measurement of troponin is stronglyrecommended as a first step in determining whether a low level elevationrepresents an acute or chronic condition. Performed By: #### C BC, TROPT, BMP, ANION, EGFR1, OSMOL, SCAN1 ####[employer] [facility] [address] [place] [address] XR CHEST STANDARD TWO VWon 0 12-28-2016 XR CHEST STANDARD TWO VW PROCEDURE: XR CHEST STANDARD TWO VWCLINICAL INFORMATION: Cough, productive cough, fever, headache, nausea for one to 2 weeksCOMPARISON: 09/01/2015TECHNIQUE: PA and lateral viewsFINDINGS: The heart and mediastinum are unchanged. There is accentuation of the bronchovascular markings as can be seen with bronchitis. Developing airspace disease in the right middle lobe cannot be entirely excluded. The osseous structures appear stable.IMPRESSION: Possible bronchitis. Developing right middle lobe airspace disease cannot be excluded.This report has been created using voice recognition software. It may contain minor errors which are inherent in voice recognition technology.Final report electronically signed by Dr. Tangela Hoskins on 12/28/2016 9:27 AMInterpreted by:PHONG Sanchezigned by:Lory Hoskins MD12/28/16Final result Normal [facility] Hematologyon 05-01-2017 Basophils Auto #/vol (Bld) 0.8 % Invalid Interpretation Code [facility] Work Phone: Basophils/100 WBC Auto (Bld) 0.1 K/uL Invalid Interpretation Code 0.0-0.1 [facility] Work Phone: [phone] Eosinophils/100 WBC Auto (Bld) 2.1 % Invalid Interpretation Code [facility] Work Phone: [phone] Erythrocyte distribution width Auto Ratio (RBC) 14.6 % Invalid Interpretation Code 10.8-14.8 [facility] Work Phone: [phone] Hematocrit Auto Volume Fraction (Bld) 44.90 % Invalid Interpretation Code 36.0-48.0 [facility] Work Phone: [phone] Hemoglobin S Solubility test Ql (Bld) 15.2 Invalid Interpretation Code 12.0-16.0 [facility] Work Phone: [phone] Lymphocytes/100 WBC Auto (Bld) 44.1 % Invalid Interpretation Code [facility] Work Phone: MCH Auto Entitic mass (RBC) 30.2 pg Invalid Interpretation Code 27.0-34.0 [facility] Work Phone: [phone] MCHC Auto mass conc (RBC) 33.9 g/dL Invalid Interpretation Code 31.0-36.0 [facility] Phone: MCV Auto Entitic volume (RBC) 89.1 fL Invalid Interpretation Code 80.-100. [facility] Work Phone: Monocytes/100 WBC Auto (Bld) 9.8 % Invalid Interpretation Code [facility] Work Phone: [phone] Neutrophils/100 WBC Auto (Bld) 42.9 % Invalid Interpretation Code [facility] Work Phone: Nucleated RBC/100 WBC Ratio (Bld) 0.2 10*3/uL Invalid Interpretation Code 0.1-0.4 [facility] Work Phone: Nucleated RBC/100 WBC Ratio (Bld) 4.4 10*3/uL Invalid Interpretation Code 0.8-5.2 [facility] Work Phone: Nucleated RBC/100 WBC Ratio (Bld) 1.0 10*3/uL Invalid Interpretation Code 0.1-0.9 [facility] Work Phone: Nucleated RBC/100 WBC Ratio (Bld) 4.2 10*3/uL Invalid Interpretation Code 1.3-9.1 [facility] Work Phone: RBC Auto #/vol (Bld) 5.040 10*6/uL Invalid Interpretation Code 4.00-5.50 [facility] Work Phone: Metabolic Panelon 10-19-2016 Albumin mass conc 4.20 g/dL Invalid Interpretation Code 3.2-5.3 [facility] Work Phone: ALP enzyme act/vol 89.0 U/L Invalid Interpretation Code 35-121 [facility] Work Phone: ALT enzyme act/vol 50.0 U/L Invalid Interpretation Code 5-59 [facility] Work Phone: Anion gap 3 molar conc 15 mmol/L Invalid Interpretation Code [facility] Work Phone: AST enzyme act/vol 43.0 U/L Invalid Interpretation Code 10-42 [facility] Work Phone: Calcium mass conc 9.70 mg/dL Invalid Interpretation Code 8.7-10.8 [facility] Work Phone: Chloride molar conc 103 mmol/L Invalid Interpretation Code 95-111 [facility] Work Phone: CO2 molar conc 27 mmol/L Invalid Interpretation Code 21-32 [facility] Work Phone: Creatinine mass conc 1.0 mg/dL Invalid Interpretation Code 0.5-1.3 [facility] Work Phone: Glucose mass conc 102 mg/dL Invalid Interpretation Code 70-100 [facility] Work Phone: Potassium molar conc 4.40 mmol/L Invalid Interpretation Code 3.5-5.4 [facility] Work Phone: Protein mass conc 7.3 g/dL Invalid Interpretation Code 5.8-8.0 [facility] Work Phone: Sodium molar conc 141 mmol/L Invalid Interpretation Code 134-147 [facility] Work Phone: Urea nitrogen mass conc 22.0 mg/dL Invalid Interpretation Code 10-20 [facility] Work Phone: Glucose mass conc 115.0 mg/dL Invalid Interpretation Code [facility] Work Phone: Otheron 10-19-2016 Bilirubin Ql (U) 0.4 Invalid Interpretation Code 0.2-1.3 [facility] Work Phone: WBC LM Ql (Sput) 9.9 Invalid Interpretation Code 3.7-10.8 [facility] Work Phone: [phone] Invalid Interpretation Code >60 [facility] Work Phone: [phone] Invalid Interpretation Code >60 [facility] Work Phone: [phone] Invalid Interpretation Code 150.-450. [facility] Work Phone: Thyroidon 10-19-2016 Thyrotropin Qn 1.590 uIU/mL Invalid Interpretation Code 0.40-4.40 [facility] Work Phone: Otheron 10-01-2016 Urinalysis specialist review Interp Yeison (Unsp spec) all normal results except Moderate for Leucocytes Invalid Interpretation Code [facility] Work Phone: Never smoked Invalid Interpretation Code [facility] Work Phone: GB Invalid Interpretation Code [facility] Work Phone: Never Invalid Interpretation Code [facility] Work Phone: Otheron 09-09-2016 Calcidiol mass conc 27.0 ng/mL Invalid Interpretation Code SEE BELOW [facility] Work Phone: Cobalamin (Vitamin B12) mass conc 651.0 pg/mL Invalid Interpretation Code 211-911 [facility] Work Phone: Thiamine molar conc (Bld) 74.0 nmol/L Invalid Interpretation Code 70-180 [facility] Work Phone: SPECIMEN FOR CBC IS INSUFFICIENT FOR TESTING, CLIE Invalid Interpretation Code [facility] Work Phone: [phone] Invalid Interpretation Code 20-125 [facility] Work Phone: Urinalysis specialist review Interp Yeison (Unsp spec) ++Leukocytes +Blood Invalid Interpretation Code [facility] Work Phone: Hematologyon 10-02-2015 Basophils Auto #/vol (Bld) 0.7 % Invalid Interpretation Code 0.-1. [facility] Work Phone: Basophils/100 WBC Auto (Bld) 0.1 K/uL Invalid Interpretation Code 0.0-0.1 [facility] Phone: Eosinophils/100 WBC Auto (Bld) 1.8 % Invalid Interpretation Code 1.-4. [facility] Work Phone: Erythrocyte distribution width Auto Ratio (RBC) 14.4 % Invalid Interpretation Code 10.8-14.8 [facility] Phone: Hematocrit Auto Volume Fraction (Bld) 46.50 % Invalid Interpretation Code 36.0-48.0 [facility]: Hemoglobin S Solubility test Ql (Bld) 15.1 Invalid Interpretation Code 12.0-16.0 [facility] Phone: Lymphocytes/100 WBC Auto (Bld) 28.4 % Invalid Interpretation Code 16-48 [facility] Phone: MCH Auto Entitic mass (RBC) 31.4 pg Invalid Interpretation Code 27.0-34.0 [facility] Phone: MCHC Auto mass conc (RBC) 32.5 g/dL Invalid Interpretation Code 31.0-36.0 [facility] Phone: MCV Auto Entitic volume (RBC) 96.6 fL Invalid Interpretation Code 80.-100. [facility] Work Phone: Monocytes/100 WBC Auto (Bld) 5.2 % Invalid Interpretation Code 1.-8. [facility] Work Phone: Neutrophils/100 WBC Auto (Bld) 64.0 % Invalid Interpretation Code 45-75 [facility] Work Phone: Nucleated RBC/100 WBC Ratio (Bld) 0.2 10*3/uL Invalid Interpretation Code 0.1-0.4 [facility] Work Phone: Nucleated RBC/100 WBC Ratio (Bld) 2.6 10*3/uL Invalid Interpretation Code 0.8-5.2 [facility] Work Phone: Nucleated RBC/100 WBC Ratio (Bld) 0.5 10*3/uL Invalid Interpretation Code 0.1-0.9 [facility] Work Phone: Nucleated RBC/100 WBC Ratio (Bld) 5.9 10*3/uL Invalid Interpretation Code 1.3-9.1 [facility] Work Phone: RBC Auto #/vol (Bld) 4.810 10*6/uL Invalid Interpretation Code 4.00-5.50 [facility] Work Phone: Metabolic Panelon 10-02-2015 Albumin mass conc 4.0 g/dL Invalid Interpretation Code 3.2-5.3 [facility] Work Phone: ALP enzyme act/vol 82.0 U/L Invalid Interpretation Code 35-121 [facility] Work Phone: ALT enzyme act/vol 39.0 U/L Invalid Interpretation Code 5-59 [facility] Work Phone: Anion gap 3 molar conc 11 mmol/L Invalid Interpretation Code [facility] Work Phone: AST enzyme act/vol 27.0 U/L Invalid Interpretation Code 10-42 [facility] Work Phone: Calcium mass conc 9.40 mg/dL Invalid Interpretation Code 8.7-10.8 [facility] Work Phone: Chloride molar conc 101 mmol/L Invalid Interpretation Code 95-111 [facility] Work Phone: CO2 molar conc 26 mmol/L Invalid Interpretation Code 21-32 [facility] Work Phone: Creatinine mass conc 0.80 mg/dL Invalid Interpretation Code 0.5-1.3 [facility] Work Phone: Glucose mass conc 92 mg/dL Invalid Interpretation Code 70-100 [facility] Work Phone: Potassium molar conc 4.10 mmol/L Invalid Interpretation Code 3.5-5.4 [facility] Work Phone: Protein mass conc 7.2 g/dL Invalid Interpretation Code 5.8-8.0 [facility] Work Phone: Sodium molar conc 134 mmol/L Invalid Interpretation Code 134-147 [facility] Work Phone: Urea nitrogen mass conc 21.0 mg/dL Invalid Interpretation Code 10-20 [facility] Work Phone: Otheron 10-02-2015 Bilirubin Ql (U) 0.4 Invalid Interpretation Code 0.2-1.3 [facility] Work Phone: Calcidiol mass conc 30.0 ng/mL Invalid Interpretation Code SEE BELOW [facility] Work Phone: WBC LM Ql (Sput) 9.2 Invalid Interpretation Code 3.7-10.8 [facility] Work Phone: [phone] Invalid Interpretation Code >60 [facility] Work Phone: [phone] Invalid Interpretation Code >60 [facility] Work Phone: [phone] Invalid Interpretation Code 150.-450. [facility] Work Phone: Hematologyon 11-06-2014 RBC Auto #/vol (Bld) 0 per HPF Invalid Interpretation Code 0-5 [facility] Work Phone: Otheron 11-06-2014 Amphetamines Screen Ql (Bld) Negative Invalid Interpretation Code [facility] Work Phone: Barbiturates Screen mass conc Negative Invalid Interpretation Code [facility] Work Phone: [phone] Bilirubin Ql (U) Negative Invalid Interpretation Code NEGATIVE [facility] Work Phone: [phone] Urobilinogen Test strip mass conc (U) NORMAL Invalid Interpretation Code NORMAL [facility] Work Phone: [phone] WBC LM Ql (Sput) 30-50 Invalid Interpretation Code 0-5 [facility] Work Phone: MANY Invalid Interpretation Code [facility] Work Phone: [phone] 2+ Invalid Interpretation Code NEGATIVE [facility] Work Phone: [phone] 20-30 Invalid Interpretation Code <10 [facility] Work Phone: [phone] YES Invalid Interpretation Code [facility] Work Phone: Negative Invalid Interpretation Code [facility] Work Phone: TRACE Invalid Interpretation Code NEGATIVE, TRACE [facility] Work Phone: [phone] 5.0 Invalid Interpretation Code 5.0-9.0 [facility] Work Phone: [phone] Invalid Interpretation Code 1.001-1.03 0 [facility] Work Phone: CLOUDY Invalid Interpretation Code [facility] Work Phone: YELLOW Invalid Interpretation Code [facility] Work Phone: [phone] Invalid Interpretation Code <100 [facility] Work Phone: [phone] Invalid Interpretation Code <100 [facility] Work Phone: [phone] Positive Invalid Interpretation Code [facility] Work Phone: SPECIMEN NUMBER: [phone] Invali d Interpretation Code [facility] Work Phone: Urinalysis specialist review Interp Yeison (Unsp spec) SEE NOTES Invalid Interpretation Code [facility] Work Phone: Urinalysison 05-19-2015 Hemoglobin Test strip Ql (U) TRACE Invalid Interpretation Code NEGATIVE [facility] Work Phone: Otheron 10-30-2014 Amphetamines Screen Ql (Bld) Negative Invalid Interpretation Code [facility] Work Phone: Barbiturates Screen mass conc Negative Invalid Interpretation Code [facility] Work Phone: Positive Invalid Interpretation Code [facility] Work Phone: Negative Invalid Interpretation Code [facility] Work Phone: pt needs Invalid Interpretation Code [facility] Work Phone: Cardiacon 10-19-2014 Cholesterol in HDL mass conc 54.0 mg/dL Invalid Interpretation Code 40-60 [facility] Work Phone: Triglyceride mass conc 216.0 mg/dL Invalid Interpretation Code <150 [facility] Work Phone: Hematologyon 10-19-2014 Basophils Auto #/vol (Bld) 1.0 % Invalid Interpretation Code 0.-1. [facility] Work Phone: Basophils/100 WBC Auto (Bld) 0.1 th/mm3 Invalid Interpretation Code 0.0-0.1 [facility] Work Phone: [phone] Eosinophils/100 WBC Auto (Bld) 0.3 th/mm3 Invalid Interpretation Code 0.1-0.4 [facility] Work Phone: Eosinophils/100 WBC Auto (Bld) 2.9 % Invalid Interpretation Code 1.-4. [facility] Work Phone: Erythrocyte distribution width Auto Ratio (RBC) 14.6 % Invalid Interpretation Code 10.8-14.8 [facility] Work Phone: Hematocrit Auto Volume Fraction (Bld) 46.90 % Invalid Interpretation Code 36.0-48.0 [facility] Work Phone: Hemoglobin S Solubility test Ql (Bld) 15.0 Invalid Interpretation Code 12.0-16.0 [facility] Work Phone: Lymphocytes/100 WBC Auto (Bld) 36.8 % Invalid Interpretation Code 16-48 [facility] Work Phone: Lymphocytes/100 WBC Auto (Bld) 3.7 th/mm3 Invalid Interpretation Code 0.8-5.2 [facility] Work Phone: MCH Auto Entitic mass (RBC) 29.8 pg Invalid Interpretation Code 27.0-34.0 [facility] Work Phone: MCHC Auto mass conc (RBC) 32.0 g/dL Invalid Interpretation Code 31.0-36.0 [facility] Work Phone: MCV Auto Entitic volume (RBC) 93.2 fL Invalid Interpretation Code 80.-100. [facility] Work Phone: Monocytes/100 WBC Auto (Bld) 5.4 % Invalid Interpretation Code 1.-8. [facility] Work Phone: Monocytes/100 WBC Auto (Bld) 0.5 th/mm3 Invalid Interpretation Code 0.1-0.9 [facility] Work Phone: Neutrophils/100 WBC Auto (Bld) 53.9 % Invalid Interpretation Code 45-75 [facility] Work Phone: Neutrophils/100 WBC Auto (Bld) 5.4 th/mm3 Invalid Interpretation Code 1.3-9.1 [facility] Work Phone: RBC Auto #/vol (Bld) 5.04 10*6/uL Invalid Interpretation Code 4.00-5.50 [facility] Work Phone: Metabolic Panelon 10-19-2014 Albumin mass conc 4.40 g/dL Invalid Interpretation Code 3.2-5.3 [facility] Work Phone: ALP enzyme act/vol 77.0 U/L Invalid Interpretation Code 35-121 [facility] Work Phone: ALT enzyme act/vol 23.0 U/L Invalid Interpretation Code 5-59 [facility] Work Phone: Anion gap 3 molar conc 12 mmol/L Invalid Interpretation Code [facility] Work Phone: AST enzyme act/vol 21.0 U/L Invalid Interpretation Code 10-42 [facility] Work Phone: Calcium mass conc 9.40 mg/dL Invalid Interpretation Code 8.7-10.8 [facility] Work Phone: Chloride molar conc 105 mmol/L Invalid Interpretation Code 95-111 [facility] Work Phone: CO2 molar conc 26 mmol/L Invalid Interpretation Code 21-32 [facility] Work Phone: Creatinine mass conc 0.80 mg/dL Invalid Interpretation Code 0.5-1.3 [facility] Work Phone: Glucose mass conc 96 mg/dL Invalid Interpretation Code 70-100 [facility] Work Phone: Potassium molar conc 4.10 mmol/L Invalid Interpretation Code 3.5-5.4 [facility] Work Phone: Protein mass conc 7.0 g/dL Invalid Interpretation Code 5.8-8.0 [facility] Work Phone: Sodium molar conc 139 mmol/L Invalid Interpretation Code 134-147 [facility] Work Phone: Urea nitrogen mass conc 16.0 mg/dL Invalid Interpretation Code 10-20 [facility] Work Phone: Otheron 10-19-2014 Bilirubin Ql (U) 0.4 Invalid Interpretation Code 0.2-1.3 [facility] Work Phone: Calcidiol mass conc 13.0 ng/mL Invalid Interpretation Code SEE BELOW [facility] Work Phone: Cholesterol crystals Infrared spectroscopy Ql (Stone) 313 mg/dL Invalid Interpretation Code <200 [facility] Work Phone: Cholesterol.total/Naya sterol in HDL mass ratio 5.8 {ratio} Invalid Interpretation Code <5 [facility] Work Phone: Cobalamin (Vitamin B12) mass conc 769.0 pg/mL Invalid Interpretation Code 211-911 [facility] Work Phone: Lipoprotein.beta/Lipopr otein.alpha mass ratio 4.0 Invalid Interpretation Code <3.5 [facility] Work Phone: Lipoprotein.pre-beta mass conc 43.0 mg/dL Invalid Interpretation Code <30 [facility] Work Phone: Lipoprotein.pre-beta mass conc 216.0 mg/dL Invalid Interpretation Code <130 [facility] Work Phone: WBC LM Ql (Sput) 9.9 Invalid Interpretation Code 3.7-10.8 [facility] Work Phone: 5 Invalid Interpretation Code 0-30 [facility] Work Phone: [phone] Invalid Interpretation Code 150.-450. [facility] Work Phone: 74 Invalid Interpretation Code >60 [facility] Work Phone: 90 Invalid Interpretation Code >60 [facility] Work Phone: Negative Invalid Interpretation Code NEGATIVE AT 1:80 [facility] Work Phone: Thyroidon 10-19-2014 T4 free mass conc 7100.0 ng/dL Invalid Interpretation Code 4.5-12.5 [facility] Work Phone: Thyrotropin Qn 0.6560 uIU/mL Invalid Interpretation Code 0.40-4.40 [facility] Work Phone: Bacteria identified Aer cx N om (Genital specimen) Genital Culture Streptococcus anginosus Abnormal [facility] Work Phone: Bacterial urine culture Bacteria identified Cx Nom (U) Mixed myrna, 5 species present Abnormal [facility] Work Phone: Bacteria identified Cx Nom (U) Mixed myrna- 3 species present Abnormal [facility] Work Phone: Vital Signs Date Time Vital Sign Value Performing Clinician Abbey prieto 07-28-2023 09:48-0500 Diastolic blood pressure 87 mm[Hg] [facility] 07-28-2023 09:48-0500 Heart rate 117 /min [facility] 07-28-2023 09:48-0500 Respiratory rate 20 /min [facility] 07-28-2023 09:48-0500 SaO2% (BldA) [Mass fraction] 95 % [facility] 07-28-2023 09:48-0500 Systolic blood pressure 145 mm[Hg] [facility] 07-28-2023 06:30-0500 Body temperature 98.2 [degF] [facility] 07-28-2023 06:27-0500 Body height 162.[address] [facility] 07-28-2023 06:27-0500 Body mass index (BMI) [Ratio] 37.3 kg/m2 [facility] 07-28-2023 06:27-0500 Body weight 98.[address] [facility] 10-14-2022 20:11-0400 Diastolic blood pressure 79 mm[Hg] Physician None Work Phone: [facility] Work Phone: 10-14-2022 20:11-0400 Heart rate 78 /min Physician None Work Phone: [facility] Work Phone: 10-14-2022 20:11-0400 Respiratory rate 16 /min Physician None Work Phone: [facility] Work Phone: 10-14-2022 20:11-0400 SaO2% (BldA) [Mass fraction] 90 % Physician None Work Phone: [facility] Work Phone: 10-14-2022 20:11-0400 Systolic blood pressure 117 mm[Hg] Physician None Work Phone: [facility] Work Phone: 10-14-2022 14:42-0400 Body temperature 97.9 [degF] Physician None Work Phone: [facility] Work Phone: 10-14-2022 14:41-0400 Body height 162.56 cm Physician None Work Phone: [facility] Work Phone: 10-14-2022 14:41-0400 Body mass index (BMI) [Ratio] 37.6 kg/m2 Physician None Work Phone: [facility] Work Phone: 10-14-2022 14:41-0400 Body weight 99.4 kg Physician None Work Phone: [facility] Work Phone: 03-04-2021 11:00-0400 Body height 162.56 cm Shazia Bhatti CNP Work Phone: [facility] Work Phone: 03-04-2021 11:00-0400 Body mass index (BMI) [Ratio] 38.3 kg/m2 Shazia Bhatti CNP Work Phone: [facility] Work Phone: 03-04-2021 11:00-0400 Body surface area Derived from formula 2.05 m2 Shazia Bhatti CNP Work Phone: [facility] Work Phone: 03-04-2021 11:00-0400 Body temperature 98 [degF] Shazia Bhatti CNP Work Phone: [facility] Work Phone: 03-04-2021 11:00-0400 Body weight 101.32 kg Shazia Bhatti CNP Work Phone: [facility] Work Phone: 03-04-2021 11:00-0400 Diastolic blood pressure 76 mm[Hg] Shazia Bhatti CNP Work Phone: [facility] Work Phone: 03-04-2021 11:00-0400 Heart rate 89 /min Shazia Bhatti CNP Work Phone: [facility] Work Phone: 03-04-2021 11:00-0400 Respiratory rate 20 /min Shazia Bhatti CNP Work Phone: [facility] Work Phone: 03-04-2021 11:00-0400 SaO2% (BldA) [Mass fraction] 95 % Shazia Bhatti CNP Work Phone: [facility] Work Phone: 03-04-2021 11:00-0400 Systolic blood pressure 104 mm[Hg] Shazia Bhatti CNP Work Phone: [facility] Work Phone: 01-24-2021 10:05-0400 Body height 162.56 cm Shazia Bhatti CNP Work Phone: [facility] Work Phone: 01-24-2021 10:05-0400 Body mass index (BMI) [Ratio] 37.9 kg/m2 Shazia Bhatti CNP Work Phone: [facility] Work Phone: 01-24-2021 10:05-0400 Body surface area Derived from formula 2.04 m2 Shazia Bhatti CNP Work Phone: [facility] Work Phone: 01-24-2021 10:05-0400 Body temperature 99.4 [degF] Shazia Bhatti CNP Work Phone: [facility] Work Phone: 01-24-2021 10:05-0400 Body weight 100.25 kg Shazia Bhatti CNP Work Phone: [facility] Work Phone: 01-24-2021 10:05-0400 Diastolic blood pressure 82 mm[Hg] Shazia Bhatti CNP Work Phone: [facility] Work Phone: 01-24-2021 10:05-0400 Heart rate 95 /min Shazia Bhatti CNP Work Phone: [facility] Work Phone: 01-24-2021 10:05-0400 Inhaled oxygen concentration 21 % Shazia Bhatti CNP Work Phone: [facility] Work Phone: 01-24-2021 10:05-0400 Inhaled oxygen flow rate 0 L/min Shazia Bhatti CNP Work Phone: [facility] Work Phone: 01-24-2021 10:05-0400 Respiratory rate 18 /min Shazia Bhatti CNP Work Phone: [facility] Work Phone: 01-24-2021 10:05-0400 SaO2% (BldA) [Mass fraction] 93 % Shazia Bhatti CNP Work Phone: [facility] Work Phone: 01-24-2021 10:05-0400 Systolic blood pressure 130 mm[Hg] Shazia Bhatti CNP Work Phone: [facility] Work Phone: 11-26-2020 14:13-0400 Body height 162.56 cm Shazia Bhatti CNP Work Phone: [facility] Work Phone: 11-26-2020 14:13-0400 Body mass index (BMI) [Ratio] 37.9 kg/m2 Shazia Bhatti CNP Work Phone: [facility] Work Phone: 11-26-2020 14:13-0400 Body surface area Derived from formula 2.04 m2 Shazia Bhatti CNP Work Phone: [facility] Work Phone: 11-26-2020 14:13-0400 Body temperature 97.3 [degF] Shazia Bhatti CNP Work Phone: [facility] Work Phone: 11-26-2020 14:13-0400 Body weight 100.15 kg Shazia Bhatti CNP Work Phone: [facility] Work Phone: 11-26-2020 14:13-0400 Diastolic blood pressure 78 mm[Hg] Shazia Bhatti CNP Work Phone: [facility] Work Phone: 11-26-2020 14:13-0400 Heart rate 115 /min Shazia Bhatti CNP Work Phone: [facility] Work Phone: 11-26-2020 14:13-0400 Respiratory rate 18 /min Shazia Bhatti CNP Work Phone: [facility] Work Phone: 11-26-2020 14:13-0400 SaO2% (BldA) [Mass fraction] 92 % Shazia Bhatti CNP Work Phone: [facility] Work Phone: 11-26-2020 14:13-0400 Systolic blood pressure 100 mm[Hg] Shazia Bhatti CNP Work Phone: [facility] Work Phone: 09-19-2020 18:59-0400 BMI (Body Mass Index) 37.8 kg/m2 [facility] Work Phone: 09-19-2020 18:59-0400 Body weight 99.79 kg [facility] Work Phone: 09-19-2020 18:59-0400 BP Diastolic 78 mm[Hg] [facility] Work Phone: 09-19-2020 18:59-0400 BP Systolic 114 mm[Hg] [facility] Work Phone: 09-19-2020 18:59-0400 BSA (Body Surface Area) 2.04 m2 [facility] Work Phone: 09-19-2020 18:59-0400 Flow Rate 0 L/min [facility] Work Phone: 09-19-2020 18:59-0400 Height 162.56 cm [facility] Work Phone: 09-19-2020 18:59-0400 Inhaled Oxygen Concentration 21 % [facility] Work Phone: 09-19-2020 18:59-0400 Pulse (Heart Rate) 102 /min [facility] Work Phone: 09-19-2020 18:59-0400 Pulse Oximetry 96 % [facility] Work Phone: 09-19-2020 18:59-0400 Respiratory Rate 20 /min [facility] Work Phone: 09-19-2020 18:59-0400 SaO2% (BldA) [Mass fraction] 96 % [facility] Work Phone: [facility] Work Phone: 01-23-2020 15:18-0400 BMI (Body Mass Index) 39.5 kg/m2 [facility] Work Phone: 01-23-2020 15:18-0400 Body Temperature 97.6 [degF] [facility] Work Phone: 01-23-2020 15:18-0400 Body weight 104.33 kg [facility] Work Phone: 01-23-2020 15:18-0400 BP Diastolic 75 mm[Hg] [facility] Work Phone: 01-23-2020 15:18-0400 BP Systolic 119 mm[Hg] [facility] Work Phone: 01-23-2020 15:18-0400 BSA (Body Surface Area) 2.08 m2 [facility] Work Phone: 01-23-2020 15:18-0400 Height 162.56 cm [facility] Work Phone: 01-23-2020 15:18-0400 Pulse (Heart Rate) 87 /min [facility] Work Phone: 01-23-2020 15:18-0400 Pulse Oximetry 93 % [facility] Work Phone: 01-23-2020 15:18-0400 Respiratory Rate 20 /min [facility] Work Phone: 01-23-2020 15:18-0400 SaO2% (BldA) [Mass fraction] 93 % Ro Estradaazam [facility] Work Phone: [facility] Work Phone: 11-27-2019 14:08-0400 BMI (Body Mass Index) 39.1 kg/m2 [facility] Work Phone: Comment on above: self reported 11-27-2019 14:08-0400 Body weight 103.42 kg [facility] Work Phone: Comment on above: self reported 11-27-2019 14:08-0400 BSA (Body Surface Area) 2.07 m2 [facility] Work Phone: Comment on above: self reported 11-27-2019 14:08-0400 Height 162.56 cm [facility] Work Phone: Comment on above: self reported 08-18-2019 14:44-0500 BMI (Body Mass Index) 38.3 kg/m2 [facility] Work Phone: 08-18-2019 14:44-0500 Body Temperature 98.4 [degF] [facility] Work Phone: 08-18-2019 14:44-0500 Body weight 101.15 kg [facility] Work Phone: 08-18-2019 14:44-0500 BP Diastolic 70 mm[Hg] [facility] Work Phone: 08-18-2019 14:44-0500 BP Systolic 122 mm[Hg] [facility] Work Phone: 08-18-2019 14:44-0500 BSA (Body Surface Area) 2.05 m2 [facility] Work Phone: 08-18-2019 14:44-0500 Height 162.56 cm [facility] Work Phone: 08-18-2019 14:44-0500 Pulse (Heart Rate) 129 /min [facility] Work Phone: 08-18-2019 14:44-0500 Pulse Oximetry 90 % [facility]: 08-18-2019 14:44-0500 Respiratory Rate 18 /min Maty [facility] Work Phone: 07-13-2019 14:31-0500 BMI (Body Mass Index) 38.1 kg/m2 [facility] Work Phone: 07-13-2019 14:31-0500 Body Temperature 97.7 [degF] [facility] Work Phone: 07-13-2019 14:31-0500 Body weight 100.7 kg [facility] Work Phone: 07-13-2019 14:31-0500 BP Diastolic 84 mm[Hg] [facility] Work Phone: 07-13-2019 14:31-0500 BP Systolic 120 mm[Hg] [facility] Work Phone: 07-13-2019 14:31-0500 BSA (Body Surface Area) 2.04 m2 [facility] Work Phone: 07-13-2019 14:31-0500 Flow Rate 0 L/min [facility] Work Phone: 07-13-2019 14:31-0500 Heart Rate Rhythm 1 1 [facility] Work Phone: 07-13-2019 14:31-0500 Height 162.56 cm [facility] Work Phone: 07-13-2019 14:31-0500 Inhaled Oxygen Concentration 21 % [facility] Work Phone: 07-13-2019 14:31-0500 Pulse (Heart Rate) 106 /min [facility] Work Phone: 07-13-2019 14:31-0500 Pulse Oximetry 95 % [facility] Work Phone: 07-13-2019 14:31-0500 Respiratory Rate 24 /min [facility] Work Phone: 01-06-2019 14:34-0400 BMI (Body Mass Index) 39.7 kg/m2 Cindy [facility] Work Phone: 01-06-2019 14:34-0400 Body Temperature 98.3 [degF] [facility] Work Phone: 01-06-2019 14:34-0400 Body weight 104.78 kg [facility] Work Phone: 01-06-2019 14:34-0400 BP Diastolic 80 mm[Hg] [facility] Work Phone: 01-06-2019 14:34-0400 BP Systolic 124 mm[Hg] [facility] Work Phone: 01-06-2019 14:34-0400 BSA (Body Surface Area) 2.08 m2 [facility] Work Phone: 01-06-2019 14:34-0400 Height 162.56 cm [facility] Work Phone: 01-06-2019 14:34-0400 Pulse (Heart Rate) 82 /min Cindy [facility] Work Phone: 01-06-2019 14:34-0400 Respiratory Rate 16 /min [facility] Work Phone: 12-21-2018 10:00-0400 BP Diastolic 73 mm[Hg] [facility] Work Phone: 12-21-2018 10:00-0400 BP Systolic 123 mm[Hg] [facility] Work Phone: 12-21-2018 10:00-0400 Height 162.56 cm [facility] Work Phone: 12-21-2018 10:00-0400 Pulse (Heart Rate) 78 /min Cindy [facility] Part[facility] rs [facility] Work Phone: 11-24-2018 14:40-0400 BP Diastolic 80 mm[Hg] [facility] Work Phone: 11-24-2018 14:40-0400 BP Systolic 128 mm[Hg] [facility] Work Phone: 11-24-2018 14:40-0400 Height 162.56 cm [facility] Work Phone: 11-24-2018 14:40-0400 Pulse (Heart Rate) 76 /min Cindy [facility] Part[facility] Work Phone: 10-06-2018 12:12-0400 BMI (Body Mass Index) 40.3 kg/m2 Cindy [facility] t[facility] Work Phone: 10-06-2018 12:12-0400 Body Temperature 98 [degF] [facility] Work Phone: 10-06-2018 12:12-0400 Body weight 106.6 kg [facility] Work Phone: 10-06-2018 12:12-0400 BP Diastolic 80 mm[Hg] [facility] Work Phone: 10-06-2018 12:12-0400 BP Systolic 110 mm[Hg] [facility] Work Phone: 10-06-2018 12:12-0400 BSA (Body Surface Area) 2.09 m2 [facility] Work Phone: 10-06-2018 12:12-0400 Height 162.56 cm [facility] Work Phone: 10-06-2018 12:12-0400 Pulse (Heart Rate) 83 /min Cindy [facility] Work Phone: 10-06-2018 12:12-0400 Pulse Oximetry 96 % Cindy Lopes [facility] Work Phone: 10-06-2018 12:12-0400 Respiratory Rate 19 /min Cindy Lopes [facility] Work Phone: 10-06-2018 12:12-0400 Weight 106.6 kg Cindy Lopes [facility] Work Phone: 08-11-2018 15:53-0500 Body height 162.56 cm Cindy Lopes CNP Work Phone: [facility] Work Phone: 08-11-2018 15:53-0500 Body mass index (BMI) [Ratio] 40.3 kg/m2 Cindy Lopes CNP Work Phone: [facility] Work Phone: 08-11-2018 15:53-0500 Body surface area Derived from formula 2.09 m2 Cindy Lopes CNP Work Phone: [facility] Work Phone: 08-11-2018 15:53-0500 Body temperature 97.9 [degF] Cindy Lopes CNP Work Phone: [facility] Work Phone: 08-11-2018 15:53-0500 Body weight 106.6 kg Cindy Lopes CNP Work Phone: [facility] Work Phone: 08-11-2018 15:53-0500 Diastolic blood pressure 78 mm[Hg] Cindy Lopes CNP Work Phone: [facility] Work Phone: 08-11-2018 15:53-0500 Heart rate 82 /min Cindy Alexandrakadi BRET Work Phone: [facility] Work Phone: 08-11-2018 15:53-0500 Inhaled oxygen concentration 21 % Cindy Lopes CNP Work Phone: [facility] Work Phone: 08-11-2018 15:53-0500 Inhaled oxygen flow rate 0 L/min Cindy Lopes CNP Work Phone: [facility] Work Phone: 08-11-2018 15:53-0500 Pulse Oximetry 95 % Cindy Lopes [facility] Work Phone: 08-11-2018 15:53-0500 Respiratory rate 18 /min Cindy Lopes CNP Work Phone: [facility] Work Phone: 08-11-2018 15:53-0500 SaO2% (BldA) [Mass fraction] 95 % Cindy Lopes CNP Work Phone: [facility] Work Phone: 08-11-2018 15:53-0500 Systolic blood pressure 128 mm[Hg] Cindy Lopes CNP Work Phone: [facility] Work Phone: 08-11-2018 15:53-0500 Weight 106.6 kg Cindy Lopes [facility] Work Phone: 07-22-2018 15:15-0500 Body height 162.56 cm Cindy Lopes CNP Work Phone: [facility] Work Phone: 07-22-2018 15:15-0500 Body mass index (BMI) [Ratio] 40.4 kg/m2 Cindy Lopes CNP Work Phone: [facility] Work Phone: 07-22-2018 15:15-0500 Body surface area Derived from formula 2.1 m2 Cindy Lopes CNP Work Phone: [facility] Work Phone: 07-22-2018 15:15-0500 Body temperature 97.5 [degF] Cindy Lopes CNP Work Phone: [facility] Work Phone: 07-22-2018 15:15-0500 Body weight 106.79 kg Cindy Lopes CNP Work Phone: [facility] Work Phone: 07-22-2018 15:15-0500 Diastolic blood pressure 80 mm[Hg] Cindy Lopes CNP Work Phone: [facility] Work Phone: 07-22-2018 15:15-0500 Heart rate 95 /min Cindy Lopes CNP Work Phone: [facility] Work Phone: 07-22-2018 15:15-0500 Pulse Oximetry 100 % Cindy Alexandrakadi [facility] Work Phone: 07-22-2018 15:15-0500 Respiratory rate 18 /min Cindy Lopes CNP Work Phone: [facility] Work Phone: 07-22-2018 15:15-0500 SaO2% (BldA) [Mass fraction] 100 % Cindy Lopes CNP Work Phone: [facility] Work Phone: 07-22-2018 15:15-0500 Systolic blood pressure 132 mm[Hg] Cindy Lopes CNP Work Phone: [facility] Work Phone: 07-22-2018 15:15-0500 Weight 106.79 kg Cindy Alexandrakadi [facility] Work Phone: 01-20-2018 15:40-0400 BMI (Body Mass Index) 39.39 kg/m2 Cindy Aaronkadi [facility] 01-20-2018 15:40-0400 Body Temperature 97.4 [degF] Cindy Aaronkadi [facility] 01-20-2018 15:40-0400 BP Diastolic 86 mm[Hg] [facility]-20-2018 15:40-0400 BP Systolic 138 mm[Hg] [facility] 01-20-2018 15:40-0400 BSA (Body Surface Area) 2.17 m2 [facility]-20-2018 15:40-0400 Height 162.56 cm [facility] 01-20-2018 15:40-0400 Pulse (Heart Rate) 107 /min Cindy [facility] 01-20-2018 15:40-0400 Pulse Oximetry 97 % [facility] 01-20-2018 15:40-0400 Respiratory Rate 20 /min [facility] 01-20-2018 15:40-0400 Weight 104.1 kg [facility] 01-20-2018 13:40-0400 Body height 162.56 cm Cindy Lopes [facility] Work Phone: [facility] Work Phone: 01-20-2018 13:40-0400 Body mass index (BMI) [Ratio] 39.3 kg/m2 Cindy Lopes [employer] Work Phone: [facility] Work Phone: 01-20-2018 13:40-0400 Body surface area Derived from formula 2.07 m2 Cindy Lopes CNP Work Phone: [facility] Work Phone: 01-20-2018 13:40-0400 Body temperature 97.4 [degF] Cindy Lopes CNP Work Phone: [facility] Work Phone: 01-20-2018 13:40-0400 Body weight 103.87 kg Cindy Lopes CNP Work Phone: [facility] Work Phone: 01-20-2018 13:40-0400 Diastolic blood pressure 86 mm[Hg] Cindy Lopes CNP Work Phone: [facility] Work Phone: 01-20-2018 13:40-0400 Heart rate 107 /min Cindy Lopes CNP Work Phone: [facility] Work Phone: 01-20-2018 13:40-0400 Respiratory rate 20 /min Cindy Lopes CNP Work Phone: [facility] Work Phone: 01-20-2018 13:40-0400 Systolic blood pressure 138 mm[Hg] Cindy Lopes CNP Work Phone: [facility] Work Phone: 01-20-2018 13:40-0400 Weight 103.87 kg Cindy Lopes [facility] Work Phone: 10-21-2017 18:41-0400 BMI (Body Mass Index) 40.53 kg/m2 [facility] 10-21-2017 18:41-0400 BP Diastolic 74 mm[Hg] [facility] 10-21-2017 18:41-0400 BP Systolic 130 mm[Hg] [facility] 10-21-2017 18:41-0400 BSA (Body Surface Area) 2.2 m2 [facility] 10-21-2017 18:41-0400 Height 162.56 cm [facility] 10-21-2017 18:41-0400 Pulse (Heart Rate) 81 /min Cindy Lopes [facility] 10-21-2017 18:41-0400 Weight 107.11 kg Cindy Alexandrakadi [facility] 10-21-2017 16:41-0400 Body height 162.56 cm Cindy Alexandrakadi [facility] Work Phone: [facility] Work Phone: 10-21-2017 16:41-0400 Body mass index (BMI) [Ratio] 40.5 kg/m2 Cindy Alexandrakadi [employer] Work Phone: [facility] Work Phone: 10-21-2017 16:41-0400 Body surface area Derived from formula 2.1 m2 Cindy Alexandrakadi [facility] Work Phone: [facility] Work Phone: 10-21-2017 16:41-0400 Body weight 107.05 kg Cindy Alexandrakadi [facility] Work Phone: [facility] Work Phone: 10-21-2017 16:41-0400 Diastolic blood pressure 74 mm[Hg] Cindy Alexandrakadi [facility] Work Phone: [facility] Work Phone: 10-21-2017 16:41-0400 Heart rate 81 /min Cindy Alexandrakadi [facility] Work Phone: [facility] Work Phone: 10-21-2017 16:41-0400 Systolic blood pressure 130 mm[Hg] Cindy Alexandrakadi BRET Work Phone: [facility] Work Phone: 02-05-2017 15:19-0400 BMI (Body Mass Index) 40.68 kg/m2 Cindy Lopes [facility] 02-05-2017 15:19-0400 Body Temperature 97.5 [degF] Cindy Lopes [facility] 02-05-2017 15:19-0400 BP Diastolic 90 mm[Hg] [facility] 02-05-2017 15:19-0400 BP Systolic 140 mm[Hg] [facility] 02-05-2017 15:19-0400 BSA (Body Surface Area) 2.2 m2 [facility] 02-05-2017 15:19-0400 Height 162.56 cm [facility] 02-05-2017 15:19-0400 Pulse (Heart Rate) 105 /min [facility] 02-05-2017 15:19-0400 Pulse Oximetry 93 % [facility] 02-05-2017 15:19-0400 Respiratory Rate 21 /min [facility] 02-05-2017 15:19-0400 Weight 107.5 kg [facility] 01-22-2017 16:04-0400 BMI (Body Mass Index) 42.44 kg/m2 [facility] 01-22-2017 16:04-0400 Body Temperature 98.5 [degF] [facility] 01-22-2017 16:04-0400 BP Diastolic 85 mm[Hg] [facility] 01-22-2017 16:04-0400 BP Systolic 135 mm[Hg] [facility] 01-22-2017 16:04-0400 BSA (Body Surface Area) 2.25 m2 [facility] 01-22-2017 16:04-0400 Height 162.56 cm [facility] 01-22-2017 16:04-0400 Pulse (Heart Rate) 78 /min Cindy [facility] rs [facility] 01-22-2017 16:04-0400 Pulse Oximetry 95 % [facility] 01-22-2017 16:04-0400 Respiratory Rate 20 /min [facility] 01-22-2017 16:04-0400 Weight 112.15 kg [facility] 01-05-2017 18:24-0400 BMI (Body Mass Index) 42.27 kg/m2 Cindy [facility] t[facility] 01-05-2017 18:24-0400 Body Temperature 98.4 [degF] [facility] 01-05-2017 18:24-0400 BP Diastolic 71 mm[Hg] [facility] 01-05-2017 18:24-0400 BP Systolic 118 mm[Hg] [facility] 01-05-2017 18:24-0400 BSA (Body Surface Area) 2.25 m2 [facility] 01-05-2017 18:24-0400 Height 162.56 cm [facility] 01-05-2017 18:24-0400 Pulse (Heart Rate) 90 /min Cindy [facility] 01-05-2017 18:24-0400 Pulse Oximetry 94 % [facility] 01-05-2017 18:24-0400 Respiratory Rate 22 /min [facility] 01-05-2017 18:24-0400 Weight 111.7 kg [facility] 12-30-2016 12:33-0400 BMI (Body Mass Index) 42.65 kg/m2 [facility]ly [facility] tners [facility] 12-30-2016 12:33-0400 Body Temperature 97.3 [degF] [facility] 12-30-2016 12:33-0400 BP Diastolic 75 mm[Hg] [facility] 12-30-2016 12:33-0400 BP Systolic 124 mm[Hg] [facility] 12-30-2016 12:33-0400 BSA (Body Surface Area) 2.26 m2 [facility] 12-30-2016 12:33-0400 Height 162.56 cm [facility] 12-30-2016 12:33-0400 Pulse (Heart Rate) 81 /min [facility] 12-30-2016 12:33-0400 Pulse Oximetry 97 % [facility] 12-30-2016 12:33-0400 Respiratory Rate 20 /min [facility] 12-30-2016 12:33-0400 Weight 112.72 kg [facility] 12-14-2016 18:23-0400 BMI (Body Mass Index) 42.74 kg/m2 [facility]ly [facility] tners [facility] 12-14-2016 18:23-0400 Body Temperature 97.3 [degF] [facility] 12-14-2016 18:23-0400 BP Diastolic 77 mm[Hg] [facility] 12-14-2016 18:23-0400 BP Systolic 128 mm[Hg] [facility] 12-14-2016 18:23-0400 BSA (Body Surface Area) 2.26 m2 [facility] 12-14-2016 18:23-0400 Height 162.56 cm [facility] 12-14-2016 18:23-0400 Pulse (Heart Rate) 76 /min [facility] 12-14-2016 18:23-0400 Pulse Oximetry 94 % [facility] 12-14-2016 18:23-0400 Respiratory Rate 18 /min [facility] 12-14-2016 18:23-0400 Weight 112.95 kg [facility] 11-11-2016 18:11-0400 BMI (Body Mass Index) 43.77 kg/m2 [facility] 11-11-2016 18:11-0400 Body Temperature 97 [degF] [facility] 11-11-2016 18:11-0400 BP Diastolic 81 mm[Hg] [facility] 11-11-2016 18:11-0400 BP Systolic 141 mm[Hg] [facility] 11-11-2016 18:11-0400 BSA (Body Surface Area) 2.29 m2 [facility] 11-11-2016 18:11-0400 Height 162.56 cm [facility] 11-11-2016 18:11-0400 Pulse (Heart Rate) 70 /min [facility] 11-11-2016 18:11-0400 Pulse Oximetry 96 % [facility] 11-11-2016 18:11-0400 Respiratory Rate 10 /min [facility] 11-11-2016 18:11-0400 Weight 115.67 kg [facility] 11-04-2016 17:48-0400 BMI (Body Mass Index) 42.59 kg/m2 [facility]indy [facility] 11-04-2016 17:48-0400 Body Temperature 97.7 [degF] [facility] 11-04-2016 17:48-0400 BP Diastolic 77 mm[Hg] [facility] 11-04-2016 17:48-0400 BP Systolic 120 mm[Hg] [facility] 11-04-2016 17:48-0400 BSA (Body Surface Area) 2.28 m2 [facility] 11-04-2016 17:48-0400 Height 163.83 cm [facility] 11-04-2016 17:48-0400 Pulse (Heart Rate) 85 /min Cindy [facility] 11-04-2016 17:48-0400 Pulse Oximetry 94 % [facility] 11-04-2016 17:48-0400 Respiratory Rate 16 /min [facility] 11-04-2016 17:48-0400 Weight 114.31 kg [facility] 11-02-2016 17:38-0400 BMI (Body Mass Index) 43.43 kg/m2 [facility] 11-02-2016 17:38-0400 Body Temperature 97.7 [degF] [facility] 11-02-2016 17:38-0400 BP Diastolic 74 mm[Hg] [facility] 11-02-2016 17:38-0400 BP Systolic 137 mm[Hg] [facility] 11-02-2016 17:38-0400 BSA (Body Surface Area) 2.28 m2 [facility] 11-02-2016 17:38-0400 Height 162.56 cm [facility] 11-02-2016 17:38-0400 Pulse (Heart Rate) 94 /min [facility] 11-02-2016 17:38-0400 Pulse Oximetry 95 % [facility] 11-02-2016 17:38-0400 Respiratory Rate 19 /min [facility] 11-02-2016 17:38-0400 Weight 114.76 kg [facility] 10-19-2016 19:49-0400 BMI (Body Mass Index) 43.77 kg/m2 [facility] 10-19-2016 19:49-0400 Body Temperature 96.9 [degF] [facility] 10-19-2016 19:49-0400 BP Diastolic 88 mm[Hg] [facility] 10-19-2016 19:49-0400 BP Systolic 135 mm[Hg] [facility] 10-19-2016 19:49-0400 BSA (Body Surface Area) 2.29 m2 [facility] 10-19-2016 19:49-0400 Height 162.56 cm [facility] 10-19-2016 19:49-0400 Pulse (Heart Rate) 86 /min [facility] 10-19-2016 19:49-0400 Pulse Oximetry 96 % [facility] 10-19-2016 19:49-0400 Respiratory Rate 18 /min [facility] 10-19-2016 19:49-0400 Weight 115.67 kg [facility] 10-01-2016 18:38-0400 BMI (Body Mass Index) 43.81 kg/m2 [facility] 10-01-2016 18:38-0400 Body Temperature 97.9 [degF] [facility] 10-01-2016 18:38-0400 BP Diastolic 77 mm[Hg] [facility] 10-01-2016 18:38-0400 BP Systolic 130 mm[Hg] [facility] 10-01-2016 18:38-0400 BSA (Body Surface Area) 2.29 m2 [facility] 10-01-2016 18:38-0400 Height 162.56 cm [facility] 10-01-2016 18:38-0400 Pulse (Heart Rate) 93 /min [facility] 10-01-2016 18:38-0400 Pulse Oximetry 93 % [facility] 10-01-2016 18:38-0400 Respiratory Rate 20 /min [facility] 10-01-2016 18:38-0400 Weight 115.78 kg [facility] 09-09-2016 18:00-0400 BMI (Body Mass Index) 41.88 kg/m2 Cindy [facility] Par tners [facility] 09-09-2016 18:00-0400 Body Temperature 99.3 [degF] [facility] 09-09-2016 18:00-0400 BP Diastolic 85 mm[Hg] [facility] 09-09-2016 18:00-0400 BP Systolic 179 mm[Hg] [facility] 09-09-2016 18:00-0400 BSA (Body Surface Area) 2.24 m2 [facility] 09-09-2016 18:00-0400 Height 162.56 cm [facility] 09-09-2016 18:00-0400 Pulse (Heart Rate) 93 /min Cindy [facility] 09-09-2016 18:00-0400 Respiratory Rate 19 /min [facility] 09-09-2016 18:00-0400 Weight 110.68 kg [facility] 08-10-2016 18:09-0500 BMI (Body Mass Index) 41.2 kg/m2 [facility] 08-10-2016 18:09-0500 Body Temperature 98.1 [degF] [facility] 08-10-2016 18:09-0500 BP Diastolic 95 mm[Hg] [facility] 08-10-2016 18:09-0500 BP Systolic 150 mm[Hg] [facility] 08-10-2016 18:09-0500 BSA (Body Surface Area) 2.22 m2 [facility] 08-10-2016 18:09-0500 Height 162.56 cm [facility] 08-10-2016 18:09-0500 Pulse (Heart Rate) 74 /min [facility] 08-10-2016 18:09-0500 Pulse Oximetry 95 % [facility] 08-10-2016 18:09-0500 Respiratory Rate 19 /min [facility] 08-10-2016 18:09-0500 Weight 108.86 kg [facility] 11-02-2015 18:47-0400 BMI (Body Mass Index) 39.31 kg/m2 [facility] 11-02-2015 18:47-0400 Body Temperature 97.6 [degF] [facility] 11-02-2015 18:47-0400 BP Diastolic 87 mm[Hg] [facility] 11-02-2015 18:47-0400 BP Systolic 163 mm[Hg] [facility] 11-02-2015 18:47-0400 BSA (Body Surface Area) 2.17 m2 [facility] 11-02-2015 18:47-0400 Height 162.56 cm [facility] 11-02-2015 18:47-0400 Pulse (Heart Rate) 86 /min [facility] 11-02-2015 18:47-0400 Pulse Oximetry 97 % [facility] 11-02-2015 18:47-0400 Respiratory Rate 18 /min [facility] 11-02-2015 18:47-0400 Weight 103.87 kg [facility] 10-02-2015 15:27-0400 BMI (Body Mass Index) 39.91 kg/m2 [facility] 10-02-2015 15:27-0400 Body Temperature 97.3 [degF] [facility] 10-02-2015 15:27-0400 BP Diastolic 79 mm[Hg] [facility] 10-02-2015 15:27-0400 BP Systolic 130 mm[Hg] [facility] 10-02-2015 15:27-0400 BSA (Body Surface Area) 2.18 m2 [facility] 10-02-2015 15:27-0400 Height 162.56 cm [facility] 10-02-2015 15:27-0400 Pulse (Heart Rate) 96 /min Cindy [employer] [facility] rs [facility] 10-02-2015 15:27-0400 Pulse Oximetry 98 % [facility]indy [facility] 10-02-2015 15:27-0400 Respiratory Rate 16 /min [facility] 10-02-2015 15:27-0400 Weight 105.46 kg [facility] 07-16-2015 16:26-0500 BMI (Body Mass Index) 39.48 kg/m2 Formerly [facility] tners [facility] 07-16-2015 16:26-0500 Body Temperature 97.2 [degF] [facility] 07-16-2015 16:26-0500 BP Diastolic 84 mm[Hg] [facility] 07-16-2015 16:26-0500 BP Systolic 132 mm[Hg] [facility] 07-16-2015 16:26-0500 BSA (Body Surface Area) 2.17 m2 [facility] 07-16-2015 16:26-0500 Height 162.56 cm [facility] 07-16-2015 16:26-0500 Pulse (Heart Rate) 87 /min [facility] 07-16-2015 16:26-0500 Pulse Oximetry 95 % [facility] 07-16-2015 16:26-0500 Respiratory Rate 20 /min [facility] 07-16-2015 16:26-0500 Weight 104.33 kg [facility] 05-09-2015 15:02-0500 BMI (Body Mass Index) 39.84 kg/m2 Cindy [facility] 05-09-2015 15:02-0500 Body Temperature 98 [degF] [facility] 05-09-2015 15:02-0500 BP Diastolic 81 mm[Hg] [facility] 05-09-2015 15:02-0500 BP Systolic 126 mm[Hg] [facility] 05-09-2015 15:02-0500 BSA (Body Surface Area) 2.18 m2 [facility] 05-09-2015 15:02-0500 Height 162.56 cm [facility] 05-09-2015 15:02-0500 Pulse (Heart Rate) 95 /min [facility] 05-09-2015 15:02-0500 Respiratory Rate 18 /min [facility] 05-09-2015 15:02-0500 Weight 105.29 kg [facility] 01-08-2015 12:00-0400 BMI (Body Mass Index) 36.69 kg/m2 Cindy [employer] [facility] tners [facility] 01-08-2015 12:00-0400 Body Temperature 98 [degF] [facility] 01-08-2015 12:00-0400 BP Diastolic 88 mm[Hg] [facility] 01-08-2015 12:00-0400 BP Systolic 128 mm[Hg] [facility] 01-08-2015 12:00-0400 BSA (Body Surface Area) 2.14 m2 [facility] 01-08-2015 12:00-0400 Height 165.1 cm [facility] 01-08-2015 12:00-0400 Pulse (Heart Rate) 81 /min [facility] 01-08-2015 12:00-0400 Respiratory Rate 18 /min [facility] 01-08-2015 12:00-0400 Weight 100.02 kg [facility] 12-19-2014 17:42-0400 BMI (Body Mass Index) 36.28 kg/m2 Formerly [facility] tners [facility] 12-19-2014 17:42-0400 Body Temperature 98.3 [degF] [facility] 12-19-2014 17:42-0400 BP Diastolic 68 mm[Hg] [facility] 12-19-2014 17:42-0400 BP Systolic 112 mm[Hg] [facility] 12-19-2014 17:42-0400 BSA (Body Surface Area) 2.13 m2 [facility] 12-19-2014 17:42-0400 Height 165.1 cm [facility] 12-19-2014 17:42-0400 Pulse (Heart Rate) 91 /min [facility] [employer] [facility] 12-19-2014 17:42-0400 Pulse Oximetry 97 % [facility] 12-19-2014 17:42-0400 Respiratory Rate 18 /min [facility] 12-19-2014 17:42-0400 Weight 98.88 kg [facility] 11-06-2014 11:22-0400 BP Diastolic 70 mm[Hg] [facility] 11-06-2014 11:22-0400 BP Systolic 126 mm[Hg] [facility] 11-06-2014 11:22-0400 Pulse (Heart Rate) 85 /min Cindy [facility] 11-06-2014 10:51-0400 BMI (Body Mass Index) 36.48 kg/m2 Cindy [facility] tners [facility] 11-06-2014 10:51-0400 Body Temperature 97.9 [degF] [facility] 11-06-2014 10:51-0400 BP Diastolic 84 mm[Hg] [facility] 11-06-2014 10:51-0400 BP Systolic 139 mm[Hg] [facility] 11-06-2014 10:51-0400 BSA (Body Surface Area) 2.14 m2 [facility] 11-06-2014 10:51-0400 Height 165.1 cm [facility] 11-06-2014 10:51-0400 Pulse (Heart Rate) 99 /min Cindy [facility] 11-06-2014 10:51-0400 Respiratory Rate 17 /min [facility] 11-06-2014 10:51-0400 Weight 99.45 kg [facility] 10-30-2014 11:52-0400 BMI (Body Mass Index) 36.44 kg/m2 [facility]indy [facility] tners [facility] 10-30-2014 11:52-0400 Body Temperature 97.5 [degF] [facility] 10-30-2014 11:52-0400 BP Diastolic 96 mm[Hg] [facility] 10-30-2014 11:52-0400 BP Systolic 138 mm[Hg] [facility] 10-30-2014 11:52-0400 BSA (Body Surface Area) 2.13 m2 [facility] 10-30-2014 11:52-0400 Height 165.1 cm [facility] 10-30-2014 11:52-0400 Pulse (Heart Rate) 80 /min [facility] 10-30-2014 11:52-0400 Respiratory Rate 16 /min [facility] 10-30-2014 11:52-0400 Weight 99.34 kg [facility] 10-19-2014 12:38-0400 BMI (Body Mass Index) 35.61 kg/m2 Cindy [facility] tners [facility] 10-19-2014 12:38-0400 Body Temperature 97.3 [degF] [facility] 10-19-2014 12:38-0400 BP Diastolic 88 mm[Hg] [facility] 10-19-2014 12:38-0400 BP Systolic 133 mm[Hg] [facility] 10-19-2014 12:38-0400 BSA (Body Surface Area) 2.11 m2 [facility] 10-19-2014 12:38-0400 Height 165.1 cm [facility] 10-19-2014 12:38-0400 Pulse (Heart Rate) 92 /min [facility] 10-19-2014 12:38-0400 Respiratory Rate 18 /min [facility] 10-19-2014 12:38-0400 Weight 97.07 kg [facility] Encounters Encounter Date Encounter Type Care Provider Facility Start: 08-07-2024 End: 08-08-2024 ambulatory Julio Blake Facility:[facility] Start: 03-20-2024 End: 03-20-2024 ambulatory MAYRA BYRD [facility] Start: 03-16-2024 End: 03-16-2024 ambulatory MAYRA BYRD [facility] Start: 07-28-2023 End: 07-28-2023 Emergency department patient visit [facility] Work Phone: Start: 06-29-2023 End: 06-29-2023 ambulatory NICK Nesbitt Work Phone: [facility] Work Phone: Start: 06-29-2023 End: 06-29-2023 Patient encounter procedure NICK Nesbitt Work Phone: [facility] Pulmonary Medicine Start: 04-14-2023 End: 04-14-2023 ambulatory NICK Nesbitt Work Phone: [facility] Work Phone: Start: 04-14-2023 End: 04-14-2023 Patient encounter procedure NICK Nesbitt Work Phone: [facility] Pulmonary Medicine Start: 04-05-2023 End: 04-05-2023 ambulatory Bethanyfaustino Nesbitt THERAPEUTIC ASSISTANT-HAND PAINT MIXER Facility:[facility] Start: 04-05-2023 End: 04-05-2023 ambulatory THERAPEUTIC ASSISTANT Bethany Nesbitt Work Phone: [facility] Work Phone: Start: 04-05-2023 End: 04-05-2023 Patient encounter procedure NICK Nesbitt Work Phone: [facility]-CT Scan Start: 12-03-2022 End: 12-03-2022 ambulatory NICK Nesbitt Work Phone: [facility] Work Phone: Start: 12-03-2022 End: 12-03-2022 Patient encounter procedure NICK Nesbitt Work Phone: [facility] Heart [facility] Start: 11-04-2022 End: 11-04-2022 Patient encounter procedure NICK Nesbitt Work Phone: [facility] Family Medicine [facility] Start: 10-14-2022 End: 10-14-2022 ambulatory Bethany Nesbitt THERAPEUTIC ASSISTANT-HAND PAINT MIXER Facility:[facility] Start: 10-14-2022 End: 10-14-2022 Admission to same day surgery center Physician None Work Phone: [facility]-Procedural Care Unit OP Start: 10-14-2022 End: 10-14-2022 ambulatory Physician None Work Phone: [facility] Work Phone: Start: 10-09-2022 End: 10-09-2022 ambulatory Physician None Work Phone: [facility] Work Phone: Start: 10-09-2022 End: 10-09-2022 Patient encounter procedure Physician None Work Phone: [facility] Heart [facility] Start: 09-30-2022 End: 09-30-2022 ambulatory Bethany Nesbitt THERAPEUTIC ASSISTANT-HAND PAINT MIXER Facility:[facility] Start: 09-30-2022 End: 09-30-2022 ambulatory Physician None Work Phone: [facility] Work Phone: Start: 09-30-2022 End: 09-30-2022 Patient encounter procedure Physician None Work Phone: [facility]-CT Scan Start: 09-29-2022 End: 09-29-2022 ambulatory Physician None Work Phone: [facility] Work Phone: Start: 09-29-2022 End: 09-29-2022 Patient encounter procedure Physician None Work Phone: [facility] Family Medicine [facility] Start: 09-25-2022 End: 09-25-2022 ambulatory THERAPEUTIC ASSISTANTKadi Nesbitt Work Phone: [facility] Work Phone: Start: 09-25-2022 End: 09-25-2022 Patient encounter procedure THERAPEUTIC ASSISTANT Bethany Nesbitt Work Phone: [facility] Heart [facility] Start: 09-21-2022 End: 09-21-2022 ambulatory Bethany Nesbitt THERAPEUTIC ASSISTANT-HAND PAINT MIXER Facility:[facility] Start: 09-21-2022 End: 09-21-2022 Patient encounter procedure THERAPEUTIC ASSISTANT Bethany Nesbitt [facility] Phone: [facility] Start: 09-01-2022 End: 09-01-2022 ambulatory THERAPEUTIC ASSISTANT Bethany Nesbitt Work Phone: [facility] Work Phone: Start: 09-01-2022 End: 09-01-2022 Patient encounter procedure NICK Nesbitt Work Phone: [facility] Start: 08-13-2022 End: 08-13-2022 ambulatory NICK Nesbitt Work Phone: [facility] Work Phone: Start: 08-13-2022 End: 08-13-2022 Patient encounter procedure NICK Nesbitt Work Phone: [facility] Start: 07-28-2022 End: 07-28-2022 ambulatory Bethany Nesbitt THERAPEUTIC ASSISTANT-HAND PAINT MIXER Facility:[facility] Start: 07-28-2022 End: 07-28-2022 ambulatory BRET Nesbitt Work Phone: [facility] Work Phone: Start: 07-28-2022 End: 07-28-2022 Patient encounter procedure BRET Nesbitt Work Phone: [facility]-Lab-Physicia n Office Specimen Start: 07-01-2022 End: 07-01-2022 ambulatory BRET Nesbitt Work Phone: [facility] Work Phone: Start: 07-01-2022 End: 07-01-2022 Patient encounter procedure BRET eNsbitt Work Phone: [facility] Start: 12-27-2021 ambulatory AGUSTO AMOS [facility] Start: 10-08-2021 End: 10-08-2021 Patient encounter procedure BRET Nesbitt Work Phone: [facility] Start: 03-04-2021 End: 01-24-2021 FQHC visit, estab pt Noemi Givens CNP Work Phone: [facility] Work Phone: Start: 12-04-2020 End: 12-05-2020 ambulatory CINDY Vazquez [facility] Start: 12-04-2020 End: 12-04-2020 Subsequent hospital visit by physician Cindy Lopes THERAPEUTIC ASSISTANT - HAND PAINT MIXER Work Phone: [facility] Start: 11-26-2020 End: 01-24-2021 FQ visit new patient Shazia Bhatit [employer] PA[employer] M[employer]ER Work Phone: [facility] Work Phone: Start: 09-19-2020 End: 09-19-2020 Established patient Mimi Murillomounika Work Phone: [facility] Work Phone: Start: 09-07-2020 End: 09-07-2020 Telemedicine consultation with patient Ro Arvizukojosheyla Work Phone: [facility] Work Phone: Start: 08-27-2020 End: 08-27-2020 Patient encounter procedure Xi Roberson Work Phone: [facility]Gene Lin [facility] Work Phone: Start: 08-03-2020 Patient encounter procedure ALDO LI [facility] Start: 03-05-2020 End: 03-05-2020 General Mimi Dewitt Work Phone: [facility] Work Phone: Start: 03-05-2020 End: 03-05-2020 Telemedicine consultation with patient Maty Love Work Phone: [facility] Work Phone: Start: 03-05-2020 End: 03-05-2020 Patient encounter procedure Maty Love Work Phone: [facility] Work Phone: Start: 01-23-2020 End: 01-23-2020 Established patient Noemi Givens Work Phone: [facility] Work Phone: Start: 11-27-2019 End: 11-27-2019 Telemedicine consultation with patient Maty Love Work Phone: [facility] Work Phone: Start: 11-02-2019 End: 11-02-2019 Patient encounter procedure Maty Love Work Phone: [facility] Work Phone: Start: 09-28-2019 End: 09-28-2019 Telemedicine consultation with patient Maty Love Work Phone: [facility] Work Phone: Start: 09-28-2019 End: 08-18-2019 Patient encounter procedure Maty Love Work Phone: [facility] Work Phone: Start: 08-18-2019 End: 08-18-2019 Established patient Mimi Dewitt Work Phone: [facility] Work Phone: Start: 08-18-2019 End: 08-18-2019 Established patient Mimi Hueve Work Phone: [facility] Work Phone: Start: 07-13-2019 End: 07-13-2019 Established patient Cindy Lopes Work Phone: [facility] Work Phone: Start: 01-06-2019 End: 01-06-2019 Established patient Mimi Hupetere Work Phone: [facility] Work Phone: Start: 12-21-2018 End: 12-21-2018 Emergency department patient visit Sahra Del Real Work Phone: [facility]Gene Lin [facility] Work Phone: Start: 12-12-2018 End: 12-12-2018 Patient encounter procedure Cindy Alexandrakadi Work Phone: [facility] Work Phone: Start: 11-24-2018 End: 11-24-2018 Emergency department patient visit Jovanna Quispe Work Phone: Dr[facility]Gene Lin [facility] Work Phone: Start: 11-24-2018 Limit oral eval prob lm focus Jovanna Quispe Work Phone: [facility] Work Phone: Start: 10-06-2018 End: 10-06-2018 Established patient Leilani Abarca Work Phone: [facility] Work Phone: Start: 10-06-2018 End: 10-06-2018 Established patient Cindy Alexandrakadi Work Phone: [facility] Work Phone: Start: 10-01-2018 End: 10-01-2018 Patient encounter procedure Josh Rodriguez Facility:[facility] Start: 09-13-2018 End: 09-13-2018 Patient encounter procedure Shazia Stevens Work Phone: [facility] Work Phone: Start: 08-11-2018 End: 08-11-2018 Established patient Cindy Oekadi Work Phone: [facility] Work Phone: Start: 07-29-2018 End: 07-29-2018 Patient encounter procedure Cindy Moses Work Phone: [facility] Start: 07-22-2018 End: 07-22-2018 Established patient Cindy Alexandrakadi Work Phone: [facility] Work Phone: Start: 01-20-2018 [facility] Start: 01-20-2018 Office outpatient vi sit 15 minutes Cindy Lopes Other [facility] Start: 01-20-2018 End: 01-20-2018 Patient encounter procedure Cindy Lopes CNP Work Phone: [facility] Work Phone: Start: 10-22-2017 End: 10-22-2017 Patient encounter procedure Conversion Provider Work Phone: [facility] Work Phone: Start: 10-21-2017 Comprehensive metabo lic panel Cindy Lopes [facility] Start: 10-21-2017 Office outpatient vi sit 10 minutes Xi Roberson Other [facility] Start: 10-21-2017 End: 10-21-2017 Patient encounter procedure Cindy Lopes CNP Work Phone: [facility] Work Phone: Start: 02-15-2017 End: 02-16-2017 Emergency department patient visit CINDY Joseph Kadi [facility] Start: 02-05-2017 Office outpatient vi sit 15 minutes Cindy Lopes [facility] Start: 02-05-2017 Physical performance test/raquel w/reprt ea 15 min Cindy Lopse [facility] Start: 02-05-2017 Radiologic examinati on knee 3 views Cindy Lopes [facility] Start: 02-05-2017 End: 02-05-2017 Patient encounter procedure Cindy Lopes CNP Work Phone: [facility] Work Phone: Start: 02-01-2017 End: 02-02-2017 Emergency department patient visit CINDY LOPES [facility] Start: 01-22-2017 Antibody borrelia burgdorferi lyme disease Cindy Lopes [facility] Start: 01-22-2017 Antistreptolysin o titer Cindy Lopes [facility] Start: 01-22-2017 Cyclic citrullinated peptide antibody Cindy Alexandrakadi [facility] Start: 01-22-2017 Office outpatient vi sit 15 minutes Cindy Moses Other [facility] Start: 01-22-2017 Rheumatoid factor quantitative Cindy Lopes [facility] Start: 01-22-2017 End: 01-22-2017 Patient encounter procedure Cindy Alexandrakadi [facility] Work Phone: [facility] Work Phone: Start: 01-05-2017 Ct thorax w/o & w/co ntrast material Cindy Lopes [facility] Start: 01-05-2017 Office outpatient vi sit 15 minutes Cindy Lopes Other [facility] Start: 01-05-2017 End: 01-05-2017 Patient encounter procedure Cindy Alexandrakadi QUEEN Work Phone: [facility] Work Phone: Start: 01-04-2017 End: 01-05-2017 [facility] Start: 12-30-2016 End: 12-30-2016 Patient encounter procedure Cindy Lopes [employer] Work Phone: [facility] Work Phone: Start: 12-30-2016 Office outpatient vi sit 15 minutes Cindy Lopes Other [facility] Start: 12-28-2016 End: 12-28-2016 Emergency department patient visit MD CINDY [facility] Start: 12-14-2016 Behavioral Health Precious aguilar Other [facility] Start: 12-14-2016 Ct thorax w/o & w/co ntrast material Cindy Moses [facility] Start: 12-14-2016 Office outpatient vi sit 15 minutes Cidny Lopes Other [facility] Start: 12-14-2016 End: 12-14-2016 Patient encounter procedure Cindy Alexandrakadi QUE[facility] Work Phone: [facility] Work Phone: Start: 12-14-2016 Tobacco use cessatio n intermediate 3-10 minutes Cindy [facility] Start: 11-11-2016 Mra abdomen w/wo con trast material Cindy [facility] Start: 11-11-2016 Mra lower extremity w/wo contrast material [facility] Start: 11-11-2016 Office outpatient vi sit 15 minutes Cindy Moses Other [facility] Start: 11-11-2016 End: 11-11-2016 Patient encounter procedure Cindy Moses QUE[facility] Work Phone: [facility] Work Phone: Start: 11-04-2016 Office outpatient vi sit 15 minutes Noemi Givens Other [facility] Start: 11-04-2016 End: 11-04-2016 Patient encounter procedure Cindy Alexandrakadi QUEEN Work Phone: [facility] Work Phone: Start: 11-02-2016 Behavioral Health Precious aguilar Other [facility] Start: 11-02-2016 Office outpatient vi sit 15 minutes Cindy Lopes Other [facility] Start: 11-02-2016 End: 11-02-2016 Patient encounter procedure Cindy Moses QUEEN Work Phone: [facility] Work Phone: Start: 10-19-2016 Chest x-ray Cindy [facility] Start: 10-19-2016 Comprehensive metabo lic panel Cindy [facility] Start: 10-19-2016 Gluc bld gluc mntr d ev cleared fda spec home use Cindy Lopes [facility] Start: 10-19-2016 Office outpatient vi sit 15 minutes Nitin Lawrence Other [facility] Start: 10-19-2016 End: 10-19-2016 Patient encounter procedure Cindy Lopes CNP Work Phone: [facility] Work Phone: Start: 10-01-2016 Culture bacterial quanttative colony count urine Cindy [facility] Start: 10-01-2016 Office outpatient vi sit 15 minutes Cindy Lopes Other [facility] Start: 10-01-2016 Us retroperitoneal r eal time w/image complete Cindy [facility] Start: 10-01-2016 End: 10-01-2016 Patient encounter procedure Cindy Lopes CNP Work Phone: [facility] Work Phone: Start: 09-09-2016 Checked In Not Seen Noemi wallis Other [employer] [facility] Start: 09-09-2016 Culture bct isol&prs mptv id isolate ea urine Cindy [facility] Start: 09-09-2016 Office outpatient vi sit 15 minutes Cindy Lopes Other [facility] Start: 09-09-2016 End: 09-09-2016 Patient encounter procedure Cindy Lopes CNP Work Phone: [facility] Work Phone: Start: 08-10-2016 Behavioral Health [place] lacy Other [facility] Start: 08-10-2016 1 25 dihydroxy inclu karina fractions if performed Cindy [facility] Start: 08-10-2016 Assay of pyridoxal phosphate Cindy Oen [facility] Start: 08-10-2016 Assay of thiamine-vi tamin b-1 Cindy Lopes [facility] Start: 08-10-2016 Ct maxillofacial w/o contrast material Cindy Lopes [facility] Start: 08-10-2016 Office outpatient vi sit 15 minutes Cindy Moses Other [facility] Start: 08-10-2016 End: 08-10-2016 Patient encounter procedure Conversion Provider Work Phone: [facility] Work Phone: Start: 11-02-2015 Office outpatient vi sit 15 minutes Noemi Givens Other [facility] Start: 11-02-2015 End: 11-02-2015 Patient encounter procedure Cindy Lopes CNP Work Phone: [facility] Work Phone: Start: 10-10-2015 End: 03-17-2018 Patient encounter status Cindy Lopes APRN - [employer] Work Phone: [facility] Start: 10-02-2015 Behavioral Health Jessica Candelaria ch Other [facility] Start: 10-02-2015 Comprehensive metabo lic panel Cindy [facility] Start: 10-02-2015 Office outpatient vi sit 40 minutes Tara Marcial Other [facility] Start: 10-02-2015 End: 10-02-2015 Patient encounter procedure Cindy Lopes CNP Work Phone: [facility] Work Phone: Start: 07-16-2015 Office outpatient vi sit 15 minutes Noemi Givens Other [facility] Start: 07-16-2015 End: 07-16-2015 Patient encounter procedure Cindy Lopes CNP Work Phone: [facility] Work Phone: Start: 05-09-2015 Mammogram, screening Cindy [facility] Start: 05-09-2015 Office outpatient vi sit 15 minutes Tara Marcial Other [facility] Start: 05-09-2015 End: 05-09-2015 Patient encounter procedure Conversion Provider Work Phone: [facility] Work Phone: Start: 01-17-2015 Dental Anvita Gt Other [facility] Start: 01-08-2015 End: 01-08-2015 Patient encounter procedure Cindy Lopes CNP Work Phone: [facility] Work Phone: Start: 01-08-2015 Checked In Not Seen Marcial ji Other [facility] Start: 01-08-2015 Office outpatient vi sit 15 minutes Nitin Lawrence Other [facility] Start: 12-27-2014 Behavioral Health Gracy Gibson Other [facility] Start: 12-27-2014 Dental Anvita Gt Other [facility] Start: 12-19-2014 Office outpatient vi sit 15 minutes Noemi Givens Other [facility] Start: 12-19-2014 End: 12-19-2014 Patient encounter procedure Cindy Lopes CNP Work Phone: [facility] Work Phone: Start: 11-06-2014 End: 11-06-2014 Patient encounter procedure Cindy Lopes CNP Work Phone: [facility] Work Phone: Start: 11-06-2014 Substance Abuse Ekta Lilly Other [facility] Start: 11-06-2014 Culture bacterial quanttative colony count urine Cindy Lopes [facility] Start: 11-06-2014 Office outpatient vi sit 25 minutes Tara Aniket Other [facility] Start: 10-30-2014 End: 10-30-2014 Patient encounter procedure Cindy Lopes CNP Work Phone: [facility] Work Phone: Start: 10-30-2014 Behavioral Health Ekta Perez do Other [facility] Start: 10-30-2014 Mammogram, screening Cindy Lopes [facility] Start: 10-30-2014 Office outpatient vi sit 25 minutes Tara Aniket Other [facility] Start: 10-19-2014 End: 10-19-2014 Patient encounter procedure Cindy Lopes CNP Work Phone: [facility] Work Phone: Start: 10-19-2014 25 hydroxy includes fractions if performed Cindy [facility] Start: 10-19-2014 Assay of thyroxine total [facility] Start: 10-19-2014 Blood count complete auto&auto difrntl wbc [facility] Start: 10-19-2014 Office outpatient ne w 20 minutes Noemi Givens Other [facility] Start: 10-18-2014 Checked In Not Seen Noemi wallis Other [facility] Procedures Date Procedure Procedure Detail Performing Clinician Start: 07-28-2023 SARS-CoV-2, Influenz a & RSV (PCR) Start: 04-05-2023 CT of chest without contrast NICK Sims Delicia Work Phone: Start: 04-05-2023 Measurement of respi ratory function NICK Sims Delicia Work Phone: Start: 10-14-2022 12 lead ECG Physician None Work Phone: Start: 09-30-2022 Cardiovascular stres s testing Physician None Work Phone: Start: 09-30-2022 CT of chest without contrast Physician None Work Phone: Start: 09-30-2022 Cardiovascular stres s test using pharmacologic stress agent Physician None Work Phone: Start: 09-21-2022 12 lead ECG THERAPEUTIC ASSISTANT Yudith Nesbitt Work Phone: Start: 09-21-2022 Echocardiography THERAPEUTIC ASSISTANT T rik Nesbitt Work Phone: Start: 03-04-2021 Most recent diastoli c blood pressure < 80 mm hg Noemi Givens CNP Work Phone: Start: 03-04-2021 Most recent systolic blood pressure <130 mm hg Noemi Givens CNP Work Phone: Start: 03-04-2021 Pt scrnd tobacco use rcvd tobacco cessation talk Noemi Givens CNP Work Phone: Start: 03-04-2021 Therapeutic prophyla ctic/dx injection subq/im Noemi Givens CNP Work Phone: Start: 03-04-2021 Triamcinolone acet inj NOS Noemi Givens CNP Work Phone: Start: 01-24-2021 Most recent diastoli c blood pressure 80-89 mm hg Noemi Givens CNP Work Phone: Start: 01-24-2021 Most recent systolic blood press 130-139mm hg Noemi Givens CNP Work Phone: Start: 01-24-2021 Pt scrnd tobacco use rcvd tobacco cessation talk Noemi Givens CNP Work Phone: Start: 12-04-2020 Comprehensive metabo lic panel Shazia Bhatti THERAPEUTIC ASSISTANT - HAND PAINT MIXER Work Phone: Start: 12-04-2020 Lipid panel Shazia stewart THERAPEUTIC ASSISTANT - HAND PAINT MIXER Work Phone: Start: 11-26-2020 Antibody hiv-1&hiv-2 single result Shazia Bhatti CNP Work Phone: Start: 11-26-2020 Most recent diastoli c blood pressure < 80 mm hg Shazia Bhatti CNP Work Phone: Start: 11-26-2020 Most recent systolic blood pressure <130 mm hg Shazia Bhatti CNP Work Phone: Start: 09-19-2020 Antibody hiv-1&hiv-2 single result Maty Love Work Phone: Start: 09-19-2020 Diast bp <80 mm hg Karyn Love Work Phone: Start: 09-19-2020 Hemoglobin glycosylated a1c Maty Love Work Phone: Start: 09-19-2020 Psychotherapy w/odette ent 30 minutes Mimipaty Dewitt Work Phone: Start: 09-19-2020 Syst bp lt 130 mm hg Me andrez Love Work Phone: Start: 09-07-2020 Current tobacco smoker Ro Austin Work Phone: Start: 09-07-2020 Pt tobacco screen rcvd tlk Ro Austin Work Phone: Start: 08-27-2020 Imm. administration COVID19 [employer] Elliott[employer]ner Work Phone: Start: 08-27-2020 SARS-CoV-2 vaccine, 0.5ml [employer] [facility] [employer] Karol Work Phone: Start: 03-05-2020 Current tobacco smoker Maty Love Work Phone: Start: 03-05-2020 Psychotherapy w/odette ent 30 minutes Mimi Hueve Work Phone: Start: 03-05-2020 Pt tobacco screen rcvd tlk Maty Love Work Phone: Start: 01-23-2020 Diast bp <80 mm hg Noemi Givens Work Phone: Start: 01-23-2020 Exc b9 lesion mrgn x cp sk tg t/a/l 0.5 cm/< Noemi Givens Work Phone: Start: 01-23-2020 Lidocaine 2% with Epinephrine INJ (Xylocaine W/Epi) Noemi Givens Work Phone: Start: 01-23-2020 Liquid Nitrogen Noemi clinton Work Phone: Start: 01-23-2020 Pt tobacco screen rcvd tlk Noemi Givens Work Phone: Start: 01-23-2020 Syst bp lt 130 mm hg Li sa Givens Work Phone: Start: 11-27-2019 Pt tobacco screen rcvd tlk Maty Love Work Phone: Start: 09-28-2019 allergy list reviewed M ovidio Love Start: 09-28-2019 Pt tobacco screen rcvd tlk Maty Love Work Phone: Start: 09-28-2019 Telehealth Pre-Visit Reviewed by provider Maty Love Start: 08-18-2019 Diast bp <80 mm hg Karyn Love Work Phone: Start: 08-18-2019 Hemoglobin glycosylated a1c Maty Love Work Phone: Start: 08-18-2019 Psychotherapy w/odette ent 30 minutes Mimi Dewitt Work Phone: Start: 08-18-2019 Pt tobacco screen rcvd tlk Maty Love Work Phone: Start: 08-18-2019 Pt-focused hlth risk assmt score doc stnd instrm Maty Love Work Phone: Start: 08-18-2019 Syst bp lt 130 mm hg Me andrez Love Work Phone: Start: 07-13-2019 Ceftriaxone sodium injection Cindy Lopes Work Phone: Start: 07-13-2019 Diast bp 80-89 mm hg Co donny Alexandran Work Phone: Start: 07-13-2019 History of influenza vaccination Cindy Oen Start: 07-13-2019 Ketorolac tromethamine inj Cindy Alexandran Work Phone: Start: 07-13-2019 Lidocaine 1% INJ (Xylocaine) Cindy Alexandran Work Phone: Start: 07-13-2019 Syst bp lt 130 mm hg Co donny Alexandran Work Phone: Start: 01-06-2019 ADJUSTMENT DISORDER WITH ANXIETY Cindy Oen Start: 01-06-2019 ANXIETY DISORDER NOS Co donny Oen Start: 01-06-2019 Appendectomy Cindy Oen Start: 01-06-2019 Appendectomy Maty Chandler ag Start: 01-06-2019 Cholecystectomy Cindy Oen Start: 01-06-2019 Cholecystectomy Maty Chandlerag Start: 01-06-2019 CHRONIC PAIN Cindy Oen Start: 01-06-2019 DEPRESSION Cindy Oen Start: 01-06-2019 FEMALE PELVIC PAIN Conn ie Oen Start: 01-06-2019 GENERALIZED ANXIETY DISORDER Cindy Oen Start: 01-06-2019 Hysterectomy Cindy Oen Start: 01-06-2019 Lig/trnsxj flp tube abdl/vag appr uni/bi Maty Chandlerag Start: 01-06-2019 Ligation of fallopian tube Cindy Oen Start: 01-06-2019 no recent change in medical history Cindy Oen Start: 01-06-2019 Psychotherapy w/odette ent 30 minutes Mimi Dewitt Work Phone: Start: 01-06-2019 Tonsillectomy Cindy Oe n Start: 01-06-2019 Tonsillectomy primary/secondary Maty Chandlerag Start: 01-06-2019 Total abdominal hyst erect w/wo rmvl tube ovary Maty Chandlerag Start: 12-21-2018 Extraction erupted tooth/exr Anvita Gt Work Phone: Start: 11-24-2018 Intraoral periapical first Jovanna Diegoand Work Phone: Start: 10-06-2018 previous hospitalizations Cindy Alexandran Start: 10-06-2018 Psychotherapy w/odette ent 30 minutes Leilani Abarca Work Phone: Start: 09-26-2018 Blood occult fecal h gb deter ia qual feces 1-3 Cindy Lopes Work Phone: Start: 08-11-2018 Diast bp <80 mm hg Jeannette Alexandran Work Phone: Start: 08-11-2018 Syst bp lt 130 mm hg Co donny Alexandran Work Phone: Start: 07-22-2018 Ceftriaxone sodium injection Cindy Alexandran Work Phone: Start: 07-22-2018 Methylprednisolone 8 0 MG inj Cindy Alexandran Work Phone: Start: 01-20-2018 PHQ9 Administered Lena e Oen Start: 01-20-2018 DIAST BP 80-89 MM HG Co nnheriberto Oen Start: 01-20-2018 SYST BP GE 130 - 139MM HG Cindy Oen Start: 01-12-2018 Colonoscopy w/biopsy single/multiple Cindy Oen Start: 10-27-2017 GASTROENTEROLOGY REFERRAL Cindy Oen Start: 10-21-2017 Blood count complete auto&auto difrntl wbc Cindy Oen Start: 10-21-2017 Comprehensive metabo lic panel Cindy Oen Start: 10-21-2017 Lipid panel Cindy Oen Start: 10-21-2017 PHQ9 Administered Lena sana Oen Start: 10-21-2017 SBIRT Negative Cindy Beauchamp en Start: 02-16-2017 POTASSIUM MD [facility] Start: 02-16-2017 GASTROINTESTINAL CONKLIN EL BY DNA MD [facility] Start: 02-16-2017 URINE DRUG SCREEN LENA Hood [facility] Start: 02-16-2017 URINE WITH REFLEXED MICRO [facility] Start: 02-16-2017 X-ray exam of abdomen Carlos RIOS [facility] Start: 02-15-2017 EKG 12-LEAD MD [facility] Start: 02-15-2017 ANION GAP MD [facility] Start: 02-15-2017 BASIC METABOLIC PANEL Carlos RIOS [facility] Start: 02-15-2017 CBC WITH AUTO DIFFERENTIAL MD [facility] Start: 02-15-2017 ETHANOL MD [facility] Start: 02-15-2017 GLOMERULAR FILTRATIO N RATE, ESTIMATED MD [facility] Start: 02-15-2017 HEPATIC FUNCTION PANEL MD [facility] Start: 02-15-2017 LIPASE MD [facility] Start: 02-15-2017 OSMOLALITY MD [facility] Start: 02-15-2017 TROPONIN MD [facility] Start: 02-15-2017 VITAL SIGNS MD [facility] Start: 02-05-2017 DIAST BP >/= 90 MM HG C onnie Oen Start: 02-05-2017 Ketorolac tromethamine inj Cindy Oen Start: 02-05-2017 SYST BP >/= 140 MM HG C onsanty Oen Start: 02-05-2017 Therapeutic prophyla ctic/dx injection subq/im Cindy Oen Start: 02-02-2017 URINE DRUG SCREEN LENA Hood [facility] Start: 02-02-2017 URINE RT REFLEX TO CULTURE MD [facility] Start: 02-02-2017 Ct abdomen & pelvis w/contrast material MD [facility] Start: 02-02-2017 Chest x-ray MD [facility] Start: 02-01-2017 EKG 12-LEAD MD [facility] Start: 02-01-2017 ANION GAP MD [facility] Start: 02-01-2017 BASIC METABOLIC PANEL C MD [facility] Start: 02-01-2017 BRAIN NATRIURETIC PEPTIDE MD [facility] Start: 02-01-2017 CBC WITH AUTO DIFFERENTIAL MD [facility] Start: 02-01-2017 ETHANOL MD [facility] Start: 02-01-2017 GLOMERULAR FILTRATIO N RATE, ESTIMATED MD [facility] Start: 02-01-2017 HEPATIC FUNCTION PANEL MD [facility] Start: 02-01-2017 LIPASE MD [facility] Start: 02-01-2017 MAGNESIUM MD [facility] Start: 02-01-2017 OSMOLALITY MD [facility] Start: 02-01-2017 TROPONIN MD [facility] Start: 02-01-2017 TSH WITHOUT REFLEX JEANNETTE MARTÍNEZ [facility] Start: 01-22-2017 Antibody borrelia burgdorferi lyme disease Cindy Oen Start: 01-22-2017 Antinuclear antibodies glenn Cindy Oen Start: 01-22-2017 Antistreptolysin o titer Cindy Oen Start: 01-22-2017 Assay of blood/uric acid Cindy Oen Start: 01-22-2017 DIAST BP 80-89 MM HG Co nnie Oen Start: 01-22-2017 Prothrombin time Cindy Oen Start: 01-22-2017 Rheumatoid factor quantitative Cindy Oen Start: 01-22-2017 SYST BP GE 130 - 139MM HG Cindy Oen Start: 01-04-2017 Ct thorax w/o & w/co ntrast material [facility] Start: 01-04-2017 CBC WITH AUTO DIFFERENTIAL MD [facility] Start: 12-30-2016 Blood count complete auto&auto difrntl wbc Cindy Oen Start: 12-14-2016 Ct thorax w/o & w/co ntrast material Cindy Oen Start: 12-14-2016 PHQ9 Administered Lena e Oen Start: 12-14-2016 Psychotherapy w/odette ent 30 minutes Cindy Oen Start: 11-18-2016 Ct abdomen w/o & w/c ontrast material Cindy Oen Start: 11-04-2016 Bx skin subcutaneous&/mucous membrane 1 lesion Cindy Oen Start: 11-04-2016 Destruction benign l esions up to 14 Cindy Oen Start: 11-04-2016 Exc b9 les mrgn xcp sk tg f/e/e/n/l/m 0.6-1.0cm Cindy Oen Start: 11-04-2016 Exc b9 lesion mrgn x cp sk tg s/n/h/f/g 0.6-1.0cm Cindy Oen Start: 11-04-2016 Exc b9 lesion mrgn x cp sk tg t/a/l 0.6-1.0 cm Cindy Oen Start: 11-04-2016 Injection of therape utic substance into bursa Cindy Oen Start: 11-04-2016 Removal skn tags salvage winder fibrq tags any area upw/15 Cindy Oen Start: 11-02-2016 Psychotherapy w/odette ent 30 minutes Cindy Oen Start: 10-19-2016 Assay of thyroid stimulating hormone tsh Cindy Oen Start: 10-19-2016 Blood count complete auto&auto difrntl wbc Cindy Alexandran Start: 10-19-2016 Collection venous bl ood venipuncture Cindy Oen Start: 10-19-2016 Comprehensive metabo lic panel Cindy Oen Start: 10-01-2016 Urnls dip stick/tabl et rgnt non-auto w/o micrscp Cindy Oen Start: 10-01-2016 Culture bacterial quanttative colony count urine Cindy Oen Start: 10-01-2016 Urnls dip stick/tabl et reagent auto microscopy Cindy Oen Start: 10-01-2016 Us retroperitoneal r eal time w/image complete Cindy Oen Start: 09-09-2016 Urnls dip stick/tabl et rgnt non-auto w/o micrscp Cindy Oen Start: 09-09-2016 Culture bct isol&prs mptv id isolate ea urine Cindy Alexandran Start: 08-11-2016 1 25 dihydroxy inclu karina fractions if performed Cindy Oen Start: 08-11-2016 Assay of pyridoxal phosphate Cindy Alexandran Start: 08-11-2016 Assay of thiamine-vi tamin b-1 Cindy Alexandran Start: 08-11-2016 Cyanocobalamin vitamin b-12 Cindy Alexandran Start: 08-10-2016 Ct maxillofacial w/o contrast material Cindy Alexandran Start: 08-10-2016 PHQ9 Administered Elna e Oen Start: 08-10-2016 Psychotherapy w/odette ent 30 minutes Cindy Oen Start: 08-10-2016 SBIRT- Full Screen *POSITIVE* Referred to Provider Cindy Oen Start: 08-10-2016 Ultrasonography of breast Cindy Oen Start: 11-05-2015 Allergy & Asthma Cindy Oen Start: 10-09-2015 Cardiology. Cindy Oen Start: 10-02-2015 Blood count complete auto&auto difrntl wbc Cindy Oen Start: 10-02-2015 Comprehensive metabo lic panel Cindy Oen Start: 10-02-2015 Ecg routine ecg w/le ast 12 lds i&r only Cindy Alexandrakadi Start: 10-02-2015 Obstetrics & Gynecology Cindy Alexandrakadi Start: 10-02-2015 PHQ9 Administered Lena Alexandrakadi Start: 10-02-2015 Psychotherapy w/odette ent 30 minutes Cindy Alexandrakadi Start: 10-02-2015 Results from PAP test C blanca Lopes Start: 07-16-2015 HIV Refused Cindy Alexandrakadi Start: 07-16-2015 Ceftriaxone sodium injection Cindy Alexandrakadi Start: 05-09-2015 Mammogram, screening Co donny Alexandrakadi Start: 05-09-2015 Need PAP scheduled Jeannette Alexandrakadi Start: 05-09-2015 Smoking cessation education Cindy Alexandrakadi Start: 01-17-2015 Currently sees dental C blanca Alexandrakadi Start: 01-17-2015 HIV SCREENING REFUSE D* in house Cindy Alexandrakadi Start: 01-08-2015 Collection venous bl ood venipuncture Cindy Alexandrakadi Start: 01-08-2015 HIV Refused Cindy Alexandrakadi Start: 12-27-2014 Behavioral Health Coordination of Care Cindy Moses Start: 12-27-2014 Psychotherapy w/odette ent 30 minutes Cindy Alexandrakadi Start: 12-16-2014 Rheumatology adult referral Cindy Alexandrakadi Start: 11-06-2014 Behavioral Health Coordination of Care Cindy Oekadi Start: 11-06-2014 Coordination of Care - Clinical Pharmacy in room OR CONSULTED Cindy Oekadi Start: 11-06-2014 Culture bacterial quanttative colony count urine Cindy Alexandrakadi Start: 11-06-2014 Psychotherapy w/odette ent 30 minutes Cindy Alexandrakadi Start: 11-06-2014 SBIRT- Pre-Screening *POSITIVE* Referred to Provider Cindy Aaronkadi Start: 11-06-2014 SBIRT: Brief Treatment Cindy Alexandrakadi Start: 11-06-2014 Screening, Brief Intervention, Referral and Treatment (Indicate category below) Cindy Moses Start: 11-06-2014 Smoking cessation education Cindy Lopes Start: 11-06-2014 Urine Drug Screen-9 Panel Cindy Oekadi Start: 11-06-2014 Urnls dip stick/tabl et reagent auto microscopy Cindy Oekadi Start: 11-06-2014 Urnls dip stick/tabl et rgnt non-auto w/o micrscp Cindy Lopes Start: 10-30-2014 Behavioral Health Coordination of Care Cindy Lopes Start: 10-30-2014 Blood occult peroxid ase actv qual feces 1 deter Cindy Lopes Start: 10-30-2014 Mammogram, screening Co donny Alexandrakadi Start: 10-30-2014 Psychotherapy w/odette ent 30 minutes Cindy Alexandrakadi Start: 10-30-2014 Smoking cessation education Cindy Alexandrakadi Start: 10-30-2014 Urine Drug Screen-9 Panel Cindy Lopes Start: 10-19-2014 25 hydroxy includes fractions if performed Cindy Alexandrakadi Start: 10-19-2014 Antinuclear antibodies glenn Cindy Alexandrakadi Start: 10-19-2014 Assay of thyroid stimulating hormone tsh Cindy Alexandrakadi Start: 10-19-2014 Assay of thyroxine total Cindy Alexandrakadi Start: 10-19-2014 Blood count complete auto&auto difrntl wbc Cindy Alexandrakadi Start: 10-19-2014 Collection venous bl ood venipuncture Cindy Alexandrakadi Start: 10-19-2014 Comprehensive metabo lic panel Cindy Alexandrakadi Start: 10-19-2014 Cyanocobalamin vitamin b-12 Cindy Alexandrakadi Start: 10-19-2014 Lipid panel Cindy Alexandrakadi Start: 10-19-2014 Sedimentation rate r bc non-automated Cindy Alexandrakadi Bacteria identificat ion test THERAPEUTIC ASSISTANTKadi Nesbitt Work Phone: Urine culture THERAPEUTIC ASSISTANT [facility] Work Phone: NEGATED: Highlighted row has not occurred!Start: 07-13-2019 previous hospitalizations Cindy Alexandrakadi NEGATED: Highlighted row has not occurred!Start: 01-06-2019 CHRONIC FATIGUE SYNDROME Cindy Oekadi Plan of Treatment Date Care Activity Detail Author Start: 07-28-2023 [facility] Start: 10-14-2022 End: 10-14-2022 Disease process or condition education [facility] Work Phone: Start: 10-14-2022 Patient discharge [facility] Work Phone: Start: 10-14-2022 Scheduling [facility] Work Phone: Start: 10-14-2022 Oxygen therapy [facility] Work Phone: Start: 10-14-2022 Peripheral pulse taking [facility] Work Phone: Start: 10-14-2022 Positioning patient [facility] Work Phone: Start: 10-14-2022 End: 10-14-2022 Provision of activity privileges [facility] Work Phone: Start: 10-14-2022 Smoking cessation education [facility] Work Phone: Start: 10-14-2022 Vital signs measurements [facility] Work Phone: Start: 10-14-2022 End: 10-14-2022 [facility] Work Phone: Start: 10-14-2022 Body height [facility] Work Phone: Start: 10-14-2022 Catheterization of vein [facility] Work Phone: Start: 10-14-2022 Evaluation for signs and symptoms of physical health problems [facility] Work Phone: Start: 10-14-2022 Laboratory data interpretation [facility] Work Phone: Start: 10-14-2022 Management of drug regimen [facility] Work Phone: Start: 10-14-2022 Measuring intake and output [facility] Work Phone: Start: 10-14-2022 Notification of physician [facility] Work Phone: Start: 10-14-2022 Oxygen therapy [facility] Work Phone: Start: 10-14-2022 Vital signs measurements [facility] Work Phone: Start: 10-14-2022 [facility] Work Phone: Start: 10-14-2022 Peripheral pulse taking [facility] Work Phone: Start: 10-14-2022 Cath plmt l hrt & arts w/njx & angio img s&i L HRT ARTERY/VENTRICLE ANGIO [facility] Work Phone: Start: 10-14-2022 Ecg routine ecg w/least 12 lds trcg only w/o i&r ELECTROCARDIOGRAM TRACING [facility] Work Phone: Start: 10-14-2022 Cardiac catheterization [facility] Work Phone: Start: 09-01-2022 [facility] Work Phone: Start: 08-13-2022 [facility] Work Phone: Start: 07-28-2022 [facility] Work Phone: Start: 02-19-2021 Influenza vaccination Flu vaccine (Season Ended) Taylor grier Work Phone: Start: 02-05-2021 [facility] visit, estab pt Medical Established Patient [facility] Work Phone: Start: 01-21-2021 CBC W Auto Differential panel - Blood [facility] Start: 10-19-2020 US Echo 2D (85671) [facility] Work Phone: Start: 10-07-2020 CBC W Auto Differential panel - Blood [facility] Start: 10-07-2020 Comprehensive metabolic 2000 panel - Serum or Plasma Comprehensive Metabolic Panel (CP) [facility] Start: 10-07-2020 Lipid panel Lipid Panel (LIPR) [facility] Start: 09-14-2020 SARS-CoV-2, SUKHWINDER [facility] Work Phone: Start: 08-03-2019 Medical Established Patient [facility] Work Phone: Start: 01-05-2019 Medical Established Patient [facility] Work Phone: Start: 12-21-2018 Dr.Gene Lin [facility] Work Phone: Start: 12-12-2018 [facility] Work Phone: Comment on above: Note: Please make a referral to:Home [facility] allergy shots Note: Please make a referral to: Dr. Lemons Start: 09-22-2018 [facility] visit, estab pt Established Patient Hieu Awad [facility] Work Phone: Start: 09-13-2018 End: 09-09-2018 Stool Kit Director Of Accreditation,In [facility] Start: 09-08-2018 FQ visit, estab pt Established Patient Hieu Awad [facility] Work Phone: Start: 08-13-2018 End: 09-09-2018 Blood occult fecal hgb deter ia qual feces 1-3 Stool Kit Director Of Accreditation,In [facility] Work Phone: Start: 08-11-2018 [facility] Work Phone: Comment on above: Note: Please make a referral to: [facility] RN to give her her allegy shots once per week- too sick to get her injections Start: 07-22-2018 End: 07-23-2018 Ceftriaxone sodium injection Ceftriaxone 250mg [facility] Work Phone: Start: 07-22-2018 End: 07-23-2018 Methylprednisolone 80 MG inj Methylprednisolone Acetate 80 mg INJ (Depo-Medrol) [facility] Work Phone: Start: 02-15-2018 Creatinine measurement Creatinine monitoring [employer] Phone: Start: 02-15-2018 Potassium [facility] Start: 01-10-2008 Screening for malignant neoplasm of breast Breast cancer screen [employer] Phone: Start: 01-10-2008 Screening for malignant neoplasm of colon Colon cancer screen colonoscopy [employer] Phone: Start: 01-10-2008 Shingles Vaccine (1 of 2) Shingles Vaccine (1 of 2) [facility] Work Phone: Start: 1998 Lipid panel Lipid screen [employer] Phone: Start: 1979 Screening for malignant neoplasm of cervix Cervical cancer screen [employer] Phone: Start: 1977 DTaP/Tdap/Td vaccine (1 - Tdap) DTaP/Tdap/Td vaccine (1 - Tdap) [facility] Work Phone: Start: 1973 HIV screening HIV screen [facility] [employer] Phone: Start: 1970 COVID-19 Vaccine (1) COVID-19 Vaccine (1) [facility] Work Phone: Start: 1958 Hepatitis C screening Hepatitis C screen [facility] [employer] Phone: Bacteria identified in Genital specimen by Aerobe culture [facility] Work Phone: Bacteria identified in Urine by Culture [facility] Work Phone: Basic metabolic 2000 panel - Serum or Plasma [facility] [place] Work Phone: Patient Education [facility] Work Phone: Patient referral [facility] Work Phone: End: 12-04-2020 Vitamin B1 Vitamin B1 Lab Routine Once for 1 Occurrences starting 12/04/2020 until 12/04/2020 [facility] Work Phone: Comment on above: Once for 1 Occurrences starting 12/05/19 21 until 12/04/2020 Vitamin B1 Vitamin B1 Lab R outine 12/04/2020 11:13 AM EDT [facility] Work Phone: Immunizations Immunization Date Immunization Notes Care Provider Shaina bustillos 08-27-2020 [employer] COVID 19 Vaccine; Translations: [dulce maria] Maty Love [facility] Work Phone: Comment on above: Note: Patient tolera annmarie well. No signs or symptoms of adverse reactions. Patient waited in facility for 15 minutes. given by nikolas 07-13-2019 influenza, injectabl e, quadrivalent, preservative free Cindy Lopes [facility] Work Phone: 07-13-2019 Ea.Addnl.Imm.Admin.o [place] 16 y[address] Cindy kadi [facility] Work Phone: 07-13-2019 Fluarix Quadrivalent 0.5 ML IM ANAHY; Translations: [Fluarix Quadrivalent 0.5 ML IM ANAHY] Cindy [facility] Work Phone: Comment on above: Patient tolerated th erapy well. No signs or symptoms of adverse reactions. 07-13-2019 Ea.Addnl.Imm.Admin.o [place] 16 [address] (Rendering physcian modifier) Maty Love [facility] Work Phone: 10-22-2017 pneumococcal conjuga te vaccine, 13 valent [facility] 10-22-2017 tetanus toxoid, redu armando diphtheria toxoid, and acellular pertussis vaccine, adsorbed; Translations: [Tdap] [facility] Comment on above: Note: Tdap 10-22-2017 pneumococcal conjuga te vaccine, 7 valent [facility] Work Phone: Comment on above: Note: PCV 10-22-2017 pneumococcal vaccine , unspecified formulation Cindy Lopes [facility] Work Phone: [facility] Work Phone: Comment on above: Note: PCV 10-21-2017 pneumococcal conjuga te vaccine, 13 valent; Translations: [PNEUMOCOCCAL VACC 13 DIONICIO IM] [facility] 10-21-2017 tetanus toxoid, redu armando diphtheria toxoid, and acellular pertussis vaccine, adsorbed; Translations: [TDAP VACCINE 7 YRS/> IM] [facility] 10-21-2017 IMMUNIZATION ADMIN E ACH ADD; Translations: [IMMUNIZATION ADMIN EACH ADD] Cindy [facility] 10-21-2017 IMMUNIZATION ADMIN; Translations: [IMMUNIZATION ADMIN] [facility] 08-10-2016 pneumococcal polysaccharide vaccine, 23 valent; Translations: [PNEUMOCOCCAL VACC 23 DIONICIO IM] [facility] 08-10-2016 IMMUNIZATION ADMIN; Translations: [IMMUNIZATION ADMIN] [facility] 08-10-2016 pneumococcal conjuga te vaccine, 7 valent [facility] Work Phone: Comment on above: Note: PCV 08-10-2016 pneumococcal vaccine , unspecified formulation Cindy [facility] Work Phone: [facility] Work Phone: Comment on above: Note: PCV 05-09-2015 influenza, injectabl e, quadrivalent, preservative free; Translations: [FLU VAC NO PRSV 4 DIONICIO 3 YRS+] [facility] 05-09-2015 influenza, seasonal, injectable [facility] 05-09-2015 varicella zoster imm une globulin; Translations: [ZOSTAVAX (PF) 19,400UNIT/0.65 MISC] [facility] Work Phone: 05-09-2015 IMMUNIZATION ADMIN; Translations: [IMMUNIZATION ADMIN] [facility] 05-09-2015 influenza virus vacc ine, unspecified formulation Cindy [facility] Work Phone: [facility] Work Phone: Comment on above: Note: Influenza (Gabriel lt) 05-09-2015 influenza, high dose seasonal, preservative-free [facility] Work Phone: Comment on above: Note: Influenza (Gabriel lt) Payers Date Payer Category Payer Medicare [id number] 2022 Self-pay 2022 Medicaid [id number] 2016 Unknown [id number] 2015 Unknown [id number] 2014 Medicaid [id number] 2014 Unknown None [id number] 2014 Medicaid [id number] 1959 Private Health Insurance [id number] 1960 Unknown [id number] 75 1958 Unknown [id number] 98 1958 Unknown [id number] 51 1958 Unknown [id number] 51 Medicare ANTHEM MEDICARE [facility] [id number] Unknown [id number] 39 Unknown [id number] 39 Unknown [id number] 39 Unknown [id number] 39 Unknown [id number] 39 Unknown ANTHEM OUT OF STATE [id number] Unknown [id number] 62 Unknown [id number] 62 Unknown [id number] 62 Social History Date Type Detail Facility Start: seldom [facility] Start: 48oz per week [facility] Start: Illicit Substance Use [facility] Start: Current every day smoke r [facility] Assertion Disability (finding) [facility] Work Phone: Assertion Stress (finding) [facility] Work Phone: Assertion Single person (finding) [facility] Work Phone: Start: 06-21-2014 Assertion Health Par [facility] Work Phone: Assertion Smoker (finding) [facility] Work Phone: Assertion Gender identity finding (finding) [facility] Work Phone: Assertion Stopped drinking alcohol (finding) [facility] Work Phone: Assertion Finding of sexua l orientation (finding) [facility] Work Phone: Assertion Tobacco user (finding) [facility] Work Phone: Start: 07-28-2023 Tobacco smoking status Unknown if ever smoked [facility] Assertion Emotional stress (finding) [facility] Work Phone: Assertion Sexually active (finding) [facility] Work Phone: Assertion Cigarette smoker (finding) [facility] Work Phone: Assertion Exposure to poll ution (event) [facility] Work Phone: Assertion Problem situatio n relating to social and personal history (finding) [facility] Work Phone: Assertion Social drinker (finding) [facility] Work Phone: Assertion Smoking monitori ng status (finding) [facility] Work Phone: Start: 02-15-2017 End: 09-10-2020 Tobacco smoking status NHIS Light tobacco smoker [facility] History of tobacco use [facility] Start: 02-15-2017 Tobacco use and exposure Never used [facility] Start: 02-15-2017 Alcohol intake Current drinke r of alcohol (finding) [facility] Work Phone: Start: 10-11-2015 Tobacco Comment e-cigs today a t 10-11-11 this am [facility] Work Phone: Start: 03-22-2015 Alcohol Comment couple tiems a year [employer] Phone: Start: 1960 Sex Assigned At Not on file [facility] Work Phone: Assertion Ex-smoker (finding) [facility] Work Phone: Start: 06-21-1972 History of tobacco use [facility] Work Phone: Start: 09-10-2020 None [facility] Start: 09-10-2020 1-2/Day [facility] Start: 1960 Sex Assigned At Female [facility] NEGATED: Highlighted row Assertion Illicit drug use (finding) [facility] Work Phone: NEGATED: Highlighted row Assertion Misuse of prescription only drugs (finding) [facility] Work Phone: NEGATED: Highlighted row Assertion [facility] Work Phone: NEGATED: Highlighted row Assertion Finding relating to drug misuse behavior (finding) [facility] Work Phone: NEGATED: Highlighted row Assertion Exposure to pollution (event) [facility] Work Phone: NEGATED: Highlighted row Assertion Tobacco user (finding) [facility] Work Phone: NEGATED: Highlighted row Assertion Interpersonal relationship finding (finding) [facility] Work Phone: NEGATED: Highlighted row Assertion Family problems (finding) [facility] Work Phone: NEGATED: Highlighted row Assertion Problem situation relating to social and personal history (finding) [facility] Work Phone: NEGATED: Highlighted row Assertion Current drinker of alcohol (finding) [facility] Work Phone: NEGATED: Highlighted row Assertion Emotional stress (finding) [facility] Work Phone: Mental Status Date Assessment Result Facility Cognitive function Cognitive fun ctioning was normal Cognitive function finding (finding) [facility] Work Phone: Clinical Notes 08-11-2018 to 08-08-2024 Note Date & Type Note Facility 08-08-2024 Note [facility] Medical Records Department [address] [place] [id number] Discharge Summary 08/08/24 1054 MR#: [id number] Acct: [id number] Name: WILBERT JOHNSON Rep #: [id number] : 1960 64 From: Michael Raymundo DO PCP: Dr. Mayra Cortez MD Status:ADM BRYANNA Location: [place] [address] Providers Date of Admission: 08/07/24 Date of Discharge: 08/08/24 Primary Care Physician: Dr. Mayra Cortez MD Reason For Visit: GENERALIZED WEAKNESS, UTI, INFLUENZA A Diagnosis Discharge Diagnosis (1) Influenza A: Status: Acute Code(s): J10.1 - Influenza due to other identified influenza virus with other respiratory manifestations (2) UTI (urinary tract infection): Status: Acute Code(s): N39.0 - Urinary tract infection, site not specified (3) Fibromyalgia: Status: Acute Code(s): M79.7 - Fibromyalgia (4) On home oxygen therapy: Status: Acute Code(s): Z99.81 - Dependence on supplemental oxygen (5) COPD (chronic obstructive pulmonary disease): Status: Chronic Code(s): J44.9 - Chronic obstructive pulmonary disease, unspecified Medications at Discharge Home Medications Saccharomyces boulardii 250 mg capsule (Probiotic (S.boulardii)) 250 mg PO DAILY 08/07/24 budesonide 160 mcg-glycopyr 9 mcg-formot 4.8 mcg/actuation HFA inhaler (Breztri Aerosphere) 2 inh inhalation BID 08/07/24 cholecalciferol (vitamin D3) 125 mcg (5,000 unit) capsule 125 mcg PO DAILY 08/07/24 fexofenadine 180 mg tablet (Allergy Relief (fexofenadine)) 180 mg PO DAILY 08/07/24 fluoxetine 20 mg capsule 20 mg PO QHS 08/07/24 fluoxetine 40 mg capsule 40 mg PO DAILY 08/07/24 fluticasone propionate 50 mcg/actuation nasal spray,suspension 1 spray intranasal DAILY 08/07/24 folic acid 1 mg tablet 1 mg PO DAILY 08/07/24 gabapentin 800 mg tablet 800 mg PO 4X/DAY 08/07/24 omeprazole 40 mg capsule,delayed release 40 mg PO DAILY 08/07/24 potassium chloride 20 mEq tablet,extended release(part/cryst) 20 meq PO DAILY 08/07/24 roflumilast 500 mcg tablet 500 mcg PO DAILY 08/07/24 sucralfate 1 gram tablet 1 g PO DAILY 08/07/24 tizanidine 4 mg tablet 4 mg PO TID PRN muscle spasticity 08/07/24 vitamin B complex 1 cap PO DAILY 08/07/24 cephalexin 500 mg capsule 500 mg PO BID 3 days #6 caps 08/08/24 oseltamivir 75 mg capsule 75 mg PO BID 3 days #6 caps 08/08/24 Hospital Course Operations None Procedures EKG and - (Chest x-ray) Summary of Care Provided Minutes Spent on Discharge: 35 Hospital Course: Patient is a 64-year-old female who presented [facility] ED on 08/07/2024 with worsening weakness and generalized pain. 1. Mild acute on chronic debility in setting of influenza A infection ??? Positive for influenza A on admit. Patient lives at home alone and felt weaker than her baseline over the past few days. Also reported significantly more generalized pain in similar distribution to her fibromyalgia. Suspected these were secondary to the influenza infection. Improving on hospital day 2 and stable on home oxygen. Will complete 5-day course of Tamiflu on discharge. Discharged home in stable condition with plan for outpatient physical therapy. 2. Mild acute cystitis ??? UA mildly infectious appearing on admit. Urine culture pending on discharge. Treated empirically with IV ceftriaxone while inpatient and discharged on p.o. Keflex to complete 5-day course of antibiotics total. 3. Fibromyalgia ??? Follows with pain management. Treated with p.o. Dilaudid as needed while inpatient, along with home gabapentin and tizanidine as needed. Okay to resume home buprenorphine on discharge. 4. COPD with chronic respiratory failure ??? Stable on home 2 L during hospitalization, no concern for acute exacerbation. Chest x-ray on admit unremarkable. Continue home inhalers. 5. Class II obesity ??? BMI 35.4 on admit. Complicated hospital course, care and prognosis. 6. GERD ??? Continue home PPI. 7. Depression/anxiety ??? Continue home fluoxetine. Total clinical time spent by myself addressing the patient's medical issues, reviewing all the data, and collaborating with patient's care team: 35 minutes. Physical Exam Const alert, oriented x3 and no apparent distress Constitutional Narrative: Upper middle-aged female, class II obesity, mildly fatigued appearing but otherwise laying back comfortably in bed, conversing normally, in no acute distress. General Appearance: cooperative and comfortable HEENT normocephalic, head/scalp atraumatic, hearing grossly normal bilaterally, nasal mucous membranes and turbinates normal and moist oral mucous membranes Eyes PERRL, EOMs intact bilaterally and conjunctivae normal Neck full ROM Chest inspection of chest normal Resp normal respiratory effort and no use of accessory muscles Resp Narrative: Breathing comfortably on home 2 L nasal cannula. Mildly decr (more content not included)... [facility] 08-07-2024 Note [facility] Medical Records Department [address] [place] [address] History Physical Exam 08/07/242128 MR#: [id number] Acct: [id number] Name: WILBERT JOHNSON Rep #: [id number] : 1960 64 From: Julio Blake MD PCP: Dr. Mayra Cortez MD Status:REG ER Location: ED HPI - General General Date of Admission: 08/07/24 Date of Service: 08/07/24 Chief Complaint: Generalized weakness HPI Narrative WILBERT JOHNSON, is a 64 F who presents to the emergency room with chief complaint of generalized weakness. Patient has significant past medical history of COPD with [id number] history of smoking for which she uses 2 L nasal cannula oxygen routinely. Patient reports feeling more significantly weak and having trouble ambulating on her own safely today. She also has concurrent urinary tract symptoms with dysuria. In the emergency room she is diagnosed positive for influenza A. She also has significant past medical history of fibromyalgia for which she takes Belbuca from pain management. Patient does not feel she can go home due to her weakness. She will be admitted overnight for observation for treatment of urinary tract infection and started on Tamiflu for her influenza with anticipated discharge tomorrow. [facility] Medical History (Updated 08/07/24 @ 21:[address] Julio Blake MD) COPD (chronic obstructive pulmonary disease) On home oxygen therapy Kidney stones Home Medications ???Medication ???Instructions ???Recorded ???Last Taken ???Type Saccharomyces boulardii 250 mg 250 mg PO DAILY 08/07/24 Unknown H istory capsule (Probiotic (S.boulardii)) budesonide 160 mcg-glycopyr 9 2 inh inhalation BID 08/07/24 Unkn own History mcg-formot 4.8 mcg/actuation HFA inhaler (Breztri Aerosphere) cholecalciferol (vitamin D3) 125 125 mcg PO DAILY 08/07/24 Unknown History mcg (5,000 unit) capsule fexofenadine 180 mg tablet 180 mg PO DAILY 08/07/24 Unknown H istory (Allergy Relief (fexofenadine)) fluoxetine 20 mg capsule 20 mg PO QHS 08/07/24 Unknown Hist ory fluoxetine 40 mg capsule 40 mg PO DAILY 08/07/24 Unknown Hi story fluticasone propionate 50 1 spray intranasal DAILY 08/07/24 Unknown History mcg/actuation nasal spray,suspension folic acid 1 mg tablet 1 mg PO DAILY 08/07/24 Unknown His tory gabapentin 800 mg tablet 800 mg PO 4X/DAY 08/07/24 Unknown History omeprazole 40 mg capsule,delayed 40 mg PO DAILY 08/07/24 Unknown Hi story release potassium chloride 20 mEq 20 meq PO DAILY 08/07/24 Unknown H istory tablet,extended release(part/cryst) roflumilast 500 mcg tablet 500 mcg PO DAILY 08/07/24 Unknown History sucralfate 1 gram tablet 1 g PO DAILY 08/07/24 Unknown Hist ory tizanidine 4 mg tablet 4 mg PO TID PRN muscle spasticity 08/07/24 Unknown History vitamin B complex 1 cap PO DAILY 08/07/24 Unknown Hi story Allergy/AdvReac Type Severity Reaction Status Date / Time ropinirole (From Requip) Allergy Severe Anaphylaxis Verified 08/07/24 16:05 latex Allergy Mild Rash Verified 08/07/24 16:05 mold AdvReac PT UNSURE Verified 08/07/24 16:05 OF REACTION Surgical History H/O: hysterectomy History of appendectomy History of cholecystectomy Social History (Updated 08/07/24 @ 16:58 by Ion Quiros) household members: family housing: house Smoking Status: Current every day smoker tobacco type: e-cigarettes ROS Constitutional Constitutional: Reports chills and fever(s) Eyes Eyes: Denies blurry vision ENT HEENT: Denies abnormal hearing Cardiovascular Cardiovascular: Denies chest pain Respiratory/Chest Respiratory/Chest: Reports cough and shortness of breath with exertion Gastrointestinal Gastrointestinal: Denies abdominal pain Genitourinary Genitourinary: Reports dysuria Musculoskeletal Musculoskeletal: Reports back pain and joint pain Integumentary Integumentary: Denies dry skin Neurologic Neurologic: Denies abnormal speech Psychiatric Psychiatric: Reports anxiety Vital Signs Vital Signs Vital Signs: 08/07/24 16:05 08/07/24 16:57 08/07/24 17:12 Temperature 98.4 F 98.3 F Temperature Source Oral Oral Pulse Rate 68 78 Respiratory Rate 18 16 Respiratory Effort Normal Non-Labored Respiratory Pattern Normal Blood Pressure 108/64 138/87 H Blood Pressure Mean 78 104 Pulse Ox 91 98 Oxygen Delivery Method Room Air Nasal Cannula Oxygen Flow Rate (L/min) 2 08/07/24 18:00 08/07/24 18:42 08/07/24 20:00 Temperature 98.5 F Temperature Source Oral Pulse Rate 77 68 78 Respiratory Rate 16 20 H Respiratory Effort Respiratory Pattern Normal Blood Pressure 138/59 H 138/88 H Blood Pressure Mean 85 104 Pulse Ox 95 Oxygen Delivery Method Room (more content not included)... [facility] 10-19-2022 Note [facility] Cardiac Senior Ssis Developer Patient: WILBERT JOHNSON [address] : 1960 [place], [place] [address] Location: [facility] [phone] Unit #: [id number] Catheterization/Angioplasty/Cardioversio n/ CardioMEMS or Pacemaker Procedure Jae Liriano DO, [facility] Dictation ID#: [id number] DATE OF PROCEDURE: 10/14/2022. PREPROCEDURE DIAGNOSIS: See Hemodynamic Report. POSTPROCEDURE DIAGNOSIS: See Hemodynamic Report. PROCEDURE PERFORMED: Cardiac catheterization. CAR PRE COOLER PERFORMING PROCEDURE: Jae Liriano D.O., F.ACaroline. FAMILY PHYSICIAN: Bethany Nesbitt, BRET. INDICATION FOR PROCEDURE: A very pleasant 62-year-old female with a history of hyperlipidemia, strong family history of coronary artery disease, history of anxiety disorder and gastroesophageal reflux disorder, has been having recurrent chest pain, dizziness and palpitations, which prompted them to order a stress test, results of which have revealed evidence of transient ischemic dilatation with a TID of 1.39. Given the above concerns for possible balanced ischemia and multivessel coronary artery disease, prompted us to refer her to cardiac catheterization lab. SITE: Right radial artery. CATHETER USED: 6-Armenian Raf catheter. COMPLICATIONS: None. ESTIMATED BLOOD LOSS: 5 mL. FINDINGS: After obtaining access via right radial artery, cardiac catheterization was performed in usual fashion revealed the following: Left main is patent, bifurcates to LAD and left circumflex. LAD has ostial 35% luminal narrowing. Remaining part of LAD is patent. Diagonal branch originating from proximal part of the LAD is also patent. Left circumflex is a dominant vessel, gives rise to first and second obtuse marginal branches from proximal and mid part of the artery, which are free of disease. The distal part of the artery gives rise to two smaller branches, both of which are patent. RIGHT CORONARY ANGIOGRAM: Right coronary artery is a small, nondominant vessel, free of any significant disease. It bifurcates very early in its course. HEMODYNAMICS AND LEFT VENTRICULOGRAM: Left ventriculogram was performed in AUGUSTE projection. EF is 60%. LVEDP is 12 mmHg. No evidence of aortic valve gradient was noted by pullback. Vasc Band was put in place. Good hemostasis was obtained. Case was completed without any complication. FINAL FINDINGS: 1. Mild coronary artery disease, which included 35% proximal and ostial LAD. 2. Remaining coronary arteries are in pretty good shape. RECOMMENDATIONS: Continuation of medical therapy is recommended. cc: Jae Liriano DO, FACC; Bethany Nesbitt APRN-HAND PAINT MIXER Dictated by: Jae Liriano DO, FACC on 10/14/22 1706 Transcribed by: Keturah Mathew on 10/14/22 1739 Report Signed by: Jae Liriano DO, FACC on 10/19/22 1203 < > [facility] 11-26-2020 Evaluation note Includes: Assessments for all patient encounters Findings Body mass index Medical New Patient with Shazia Bhatti CNP 11/26/2020 Dast - 10 Score was 0 11/26/2020 Medical New Patient with Shazia Bhatti CNP 11/26/2020 J01.90 - Acute sinusitis, unspecified Medical New Patient with Shazia Bhatti CNP 11/26/2020 Obesity due to excess calories Medical N ew Patient with Shazia Bhatti CNP 11/26/2020 PHQ-9: total score was eight 11/26/2020 Medical New Patient with Shazia Bhatti CNP 11/26/2020 Prediabetes Medical New Patient with Shazia Bhatti CNP 11/26/2020 Dependence on nicotine in cigarettes - uncomplicated Established Patient with Mimi ESCOBAR 09/19/2020 Moderate recurrent major depression Established Patient with Mimi ESCOBAR 09/19/2020 Sleep disorder Established Patie nt with Mimi ESCOBAR 09/19/2020 Body mass index [BMI] 37.0-3 7.9, adult Medical Established Patient with Maty Love CNP 09/19/2020 Chronic pain Medical Established Patient with Maty Love CNP 09/19/2020 Dependence on nicotine in cigarettes - uncomplicated Medical Established Patient with Maty Love [facility] 09/19/2020 Encounter for screening for diabetes mellitus Medical Established Patient with Maty Love [facility] 09/19/2020 Fibromyalgia Medical Established Patient with Maty Love [facility] 09/19/2020 Generalized anxiety disorder Medical Est ablished Patient with Maty Love [facility] 09/19/2020 Moderate recurrent major depression Medical Established Patient with Maty Love [employer] 09/19/2020 Sleep disorder Medical Established Patient with Maty Love [facility] 09/19/2020 Exposure to a viral disease Telemedicine New Patient with Ro Estrada[employer]am [facility] 09/07/2020 Encounter for Immunization 1st COVID Vac cine with Xi Roberson PharmD 08/27/2020 Generalized anxiety disorder [facility] 03/05/2020 Moderate recurrent major depression [facility] 03/05/2020 Nicotine dependence uncomplicated [facility] 03/05/2020 Chronic sinusitis, unspecified Telemedic ine Establisted Patient with Maty Love [facility] 03/05/2020 Magnesium deficiency Telemedicine Establ isted Patient with Maty Love [facility] 03/05/2020 Nicotine dependence, unspecified, uncomplicated Telemedicine Establisted Patient with Maty Love [facility] 03/05/2020 Vitamin D deficiency, unspecified Telemedicine Establisted Patient with Maty Love [facility] 03/05/2020 B07.9 - Viral wart, unspecified Medical Established Patient with Noemi Givens [facility] 01/23/2020 Epidermal inclusion cyst Medical Establi shed Patient with Noemi Givens [facility] 01/23/2020 L82.1 - Other seborrheic keratosis Medical Established Patient with Noemi Givens [facility] 01/23/2020 Obesity due to excess calories Medical E stablished Patient with Noemi Givens [facility] 01/23/2020 Z68.39 - Body mass index (BM I) 39.0-39.9, adult Medical Established Patient with Noemi Givens [facility] 01/23/2020 Bipolar disorder, current episode hypomanic Telemedicine with Maty Love [facility] 11/27/2019 Body mass index Telemedicine with Sd andrez Love [facility] 11/27/2019 Chronic sinusitis, unspecified Telemedic ine with Maty Love [facility] 11/27/2019 Nicotine dependence, unspecified, uncomplicated Telemedicine with Maty Love [facility] 11/27/2019 Obesity due to excess calories Telemedic ine with Maty Love [employer] [facility] [facility] 11/27/2019 Fibromyalgia Telemedicine with Sd andrez Love [facility] [facility] 09/28/2019 Generalized anxiety disorder Telemedicin e with Maty Love [employer] [facility] [facility] 09/28/2019 Major depressive disorder, recurrent, moderate Telemedicine with Maty Love [facility] [facility] 09/28/2019 Nicotine dependence, cigaret leonel, uncomplicated Telemedicine with Maty Love [employer] [facility] [facility] 09/28/2019 Generalized anxiety disorder Establis hed Patient with Mimi Santiagoe [facility] 08/18/2019 Mild recurrent major depression Estab lished Patient with Mimi Hueve [facility] 08/18/2019 Nicotine dependence uncomplicated BH Established Patient with Mimi Hupetere [employer] 08/18/2019 Allergy, unspecified, initia l encounter Medical Established Patient with Maty Love [employer] [facility] 08/18/2019 Body mass index (BMI) 38.0-3 8.9, adult Medical Established Patient with Maty Love [employer] [facility] 08/18/2019 Chronic obstructive pulmonar y disease, unspecified Medical Established Patient with Maty Love [employer] 08/18/2019 Chronic pain syndrome Medical Establishe d Patient with Maty Love [employer] [facility] [facility] 08/18/2019 Diabetes Risk Test Score was five score 08/18/2019 Medical Established Patient with Maty Love [employer] [facility] 08/18/2019 Fibromyalgia Medical Established Patient with Maty Love [employer] [facility] 08/18/2019 Generalized anxiety disorder Medical Est ablished Patient with Maty Love [facility] 08/18/2019 Major depressive disorder, recurrent, moderate Medical Established Patient with Maty Love [employer] 08/18/2019 Nicotine dependence, unspecified, uncomplicated Medical Established Patient with Maty Love [employer] 08/18/2019 Obesity due to excess calories Medical E stablished Patient with Maty Love [employer] 08/18/2019 Prediabetes Medical Established Patient with Maty Love [employer] [facility] 08/18/2019 Sleep disorder, unspecified Medical Esta blished Patient with Maty Love [employer] [facility] 08/18/2019 Acute laryngopharyngitis Medical Establi shed Patient with Cindy Aaronn [employer] [facility] [facility] 07/13/2019 Acute pansinusitis unspecified Medical E stablished Patient with Cindy Oen [employer] [facility] 07/13/2019 Body mass index Medical Established Patient with Cindy Oen [employer] [facility] 07/13/2019 Obesity due to excess calories Medical E stablished Patient with Cindy Oen [employer] [facility] 07/13/2019 Generalized anxiety disorder Establis hed Patient with Mimipaty Dewitt [facility] [facility] 01/06/2019 Moderate recurrent major depression BH Established Patient with Mimipaty Dewitt [employer] 01/06/2019 Anxiety disorder NOS Medical Established Patient with Cindy Oen [employer] 01/06/2019 Anxiety disorder of unknown (axis III) etiology Medical Established Patient with Cindy Oen [employer] [facility] 01/06/2019 Depression Medical Established Patient with Cindy Oen [employer] [facility] 01/06/2019 Generalized anxiety disorder Medical Est ablished Patient with Cindy Oen [employer] [facility] 01/06/2019 Adjustment disorder Established Patie nt with Leilani SQUIRESW-S 10/06/2018 Body mass index Medical Established Patient with Cindy Oen [employer] 10/06/2018 Dast - 10 Score was 0 10/06/2018 Medical Established Patient with Cindy Oen [employer] [facility] 10/06/2018 PHQ-9: total score was eight 10/06/2018 Medical Established Patient with Cindy Oen [employer] 10/06/2018 Viral gastroenteritis (Norwa lk virus) Medical Established Patient with Cindy Oen [employer] 10/06/2018 Viral infection Medical Established Patient with Cindy Oen [employer] 10/06/2018 swelling in veneculla- seein g an ENT- trying to get shots for her allergies Medical Established Patient with Cindy Oen [employer] 08/11/2018 Allergic rhinitis Medical Established Patient with Cindy Oen [employer] 08/11/2018 Prehypertension Medical Established Patient with Cindy Oen [employer] 08/11/2018 Acute pharyngitis Medical Established Patient with Cindy Oen [employer] 07/22/2018 Assessment of cough Medical Established Patient with Cindy Oen [employer] 07/22/2018 Assessment of fever Medical Established Patient with Cindy Oen [employer] 07/22/2018 Bronchiolitis infectious Medical Establi shed Patient with Cindy Oen [employer] 07/22/2018 Upper respiratory infection Medical Esta blished Patient with Cindy Oen [employer] 07/22/2018 [facility] Work Phone: 1(243) 808-405604-01-2021 Evaluation note Includes: Assessments for all patient encounters Findings Encounter Date Dependence on nicotine in ci garettes - uncomplicated BH Established Patient with Mimi Dewitt [employer] 09/19/2020 Moderate recurrent major depression BH E stablished Patient with Mimi Dewitt [employer] 09/19/2020 Sleep disorder Established Patie nt with Mimi Dewitt [employer] 09/19/2020 Body mass index [BMI] 37.0-37.9, adult M edical Established Patient with Maty Love [employer] [facility] 09/19/2020 Chronic pain Medical Established Patient with Maty Love [employer] 09/19/2020 Dependence on nicotine in ci garettes - uncomplicated Medical Established Patient with Maty Love [employer] 09/19/2020 Encounter for screening for diabetes mellitus Medical Established Patient with Maty Love [employer] 09/19/2020 Fibromyalgia Medical Established Patient with Maty Love [employer] 09/19/2020 Generalized anxiety disorder Medical Est ablished Patient with Maty Love [employer] 09/19/2020 Moderate recurrent major depression [place] Established Patient with Maty Love [employer] 09/19/2020 Sleep disorder Medical Established Patient with Maty Love [facility] [facility] 09/19/2020 Exposure to a viral disease Telemedicine New Patient with Ro Norman [employer] [facility] [facility] 09/07/2020 Encounter for Immunization 1st COVID Vac cine with Xi Roberson PharmD 08/27/2020 Generalized anxiety disorder Telebeha vioral Health with Mimipaty Dewitt [facility] 03/05/2020 Moderate recurrent major depression T elebehavioral Health with [facility] 03/05/2020 Nicotine dependence uncomplicated Tel ebehavioral Health with Immipaty Santiagoe [facility] 03/05/2020 Chronic sinusitis, unspecified Telemedic ine Establisted Patient with Maty Love [employer] [facility] 03/05/2020 Magnesium deficiency Telemedicine Establ isted Patient with Maty Love [employer] [facility] [facility] 03/05/2020 Nicotine dependence, unspeci fied, uncomplicated Telemedicine Establisted Patient with Maty Love [facility] [facility] 03/05/2020 Vitamin D deficiency, unspecified Teleme dicine Establisted Patient with Maty Love [employer] [facility] 03/05/2020 B07.9 - Viral wart, unspecified Medical Established Patient with Noemi Chon [employer] [facility] [facility] 01/23/2020 Epidermal inclusion cyst Medical Establi shed Patient with Noemi Chon [facility] [facility] 01/23/2020 L82.1 - Other seborrheic keratosis Medic al Established Patient with Noemi Chon [employer] [facility] [facility] 01/23/2020 Obesity due to excess calories Medical E stablished Patient with Noemi Chon [employer] [facility] [facility] 01/23/2020 Z68.39 - Body mass index (BM I) 39.0-39.9, adult Medical Established Patient with Noemi Chon [employer] [facility] [facility] 01/23/2020 Bipolar disorder, current ep isode hypomanic Telemedicine with Maty Love [employer] 11/27/2019 Body mass index Telemedicine with Maty Geraldinedoyle Carlos [employer] 11/27/2019 Chronic sinusitis, unspecified Telemedicine with Maty Love [employer] 11/27/2019 Nicotine dependence, unspeci fied, uncomplicated Telemedicine with Maty Love [employer] 11/27/2019 Obesity due to excess calories Telemedicine with Maty Love [employer] 11/27/2019 Fibromyalgia Telemedicine with Matycara Love Carlos [employer] 09/28/2019 Generalized anxiety disorder Telemedicine with Deandre Love [employer] [facility] 09/28/2019 Major depressive disorder, r ecurrent, moderate Telemedicine with Maty Love [employer] 09/28/2019 Nicotine dependence, cigaret leonel, uncomplicated Telemedicine with Maty Love [employer] 09/28/2019 Generalized anxiety disorder BH Establis hed Patient with Mimi Hupetere [employer] 08/18/2019 Mild recurrent major depression Estab lished Patient with Mimi Hueve [employer] 08/18/2019 Nicotine dependence uncomplicated BH Est ablished Patient with Mimi Hueve [employer] 08/18/2019 Allergy, unspecified, initial encounter Medical Established Patient with Maty Love [employer] 08/18/2019 Body mass index (BMI) 38.0-38.9, adult M edical Established Patient with Maty Love [employer] 08/18/2019 Chronic obstructive pulmonar y disease, unspecified Medical Established Patient with Maty Love [employer] 08/18/2019 Chronic pain syndrome Medical Establishe d Patient with Maty Love [employer] 08/18/2019 Diabetes Risk Test Score was five score 08/18/2019 Medical Established Patient with Maty Love [employer] 08/18/2019 Fibromyalgia Medical Established Patient with Maty Love [employer] 08/18/2019 Generalized anxiety disorder Medical Est ablished Patient with Maty Love [employer] 08/18/2019 Major depressive disorder, r ecurrent, moderate Medical Established Patient with Maty Love [employer] 08/18/2019 Nicotine dependence, unspeci fied, uncomplicated Medical Established Patient with Maty Love [employer] 08/18/2019 Obesity due to excess calories Medical E stablished Patient with Matycara Love [employer] [facility] 08/18/2019 Prediabetes Medical Established Patient with Maty Love [employer] 08/18/2019 Sleep disorder, unspecified Medical Esta blished Patient with Matycara Love [employer] 08/18/2019 Acute laryngopharyngitis Medical Establi shed Patient with Cindy Oen [employer] 07/13/2019 Acute pansinusitis unspecified Medical E stablished Patient with Cindy Oen [employer] 07/13/2019 Body mass index Medical Established Patient with Cindy Oen [employer] 07/13/2019 Obesity due to excess calories Medical E stablished Patient with Cindy Oen [employer] 07/13/2019 Generalized anxiety disorder BH Establis hed Patient with Mimi Hueve [facility] 01/06/2019 Moderate recurrent major depression BH E stablished Patient with Mimi Hueve [employer] 01/06/2019 Anxiety disorder NOS Medical Established Patient with Cindy Oen [employer] 01/06/2019 Anxiety disorder of unknown (axis III) etiology Medical Established Patient with Cindy Oen [employer] 01/06/2019 Depression Medical Established Patient with Cindy Oen [employer] 01/06/2019 Generalized anxiety disorder Medical Est ablished Patient with Cindy Oen [employer] 01/06/2019 Adjustment disorder BH Established Patie nt with Leilani ESCOBAR-S 10/06/2018 Body mass index Medical Established Patient with Cindy Oen [employer] 10/06/2018 Dast - 10 Score was 0 10/06/2018 Medical Established Patient with Cindy Oen [employer] 10/06/2018 PHQ-9: total score was eight 10/06/2018 M edical Established Patient with Cindy Oen [employer] 10/06/2018 Viral gastroenteritis (Eleva virus) Me dical Established Patient with Cindy Oen [employer] 10/06/2018 Viral infection Medical Established Patient with Cindy Oen [employer] 10/06/2018 swelling in veneculla- seein g an ENT- trying to get shots for her allergies Medical Established Patient with Cindy Oen [employer] 08/11/2018 Allergic rhinitis Medical Established Patient with Cindy Oen [employer] 08/11/2018 Prehypertension Medical Established Patient with Cindy Oen [employer] 08/11/2018 Acute pharyngitis Medical Established Patient with Cindy Oen [employer] 07/22/2018 Assessment of cough Medical Established Patient with Cindy Oen [employer] 07/22/2018 Assessment of fever Medical Established Patient with Cindy Oen [employer] 07/22/2018 Bronchiolitis infectious Medical Establi shed Patient with Cindy Oen [employer] 07/22/2018 Upper respiratory infection Medical Esta blished Patient with Cindy Oen [employer] 07/22/2018 [facility] Work Phone: [phone]) 524-574504-01-2021 History general Narrative - Reported Includes: Medical History in patient's chart Description Last Updated History of hypertension 09/19/2020 Allergy list reviewed 09/28/2019 Telehealth Pre-Visit Reviewed by mraio latif 09/28/2019 A recent immunization for flu 07/13/2019 No previous hospitalizations 07/13/2019 History of adjustment disorder with anxi ety 01/06/2019 History of anxiety disorder NOS 01/07/20 19 History of depression 01/06/2019 History of female pelvic pain 01/06/2019 History of generalized anxiety disorder 01/06/2019 No history of chronic fatigue syndrome 0 01/06/2019 No recent change in medical history 12/19 History of chronic pain 01/06/2019 [facility] Work Phone: [phone]) 761-260702-21-2019 Evaluation note Includes: Assessments for all patient encounters Findings Encounter Date swelling in veneculla- seein g an ENT- trying to get shots for her allergies Established Patient with Cindy Oen [facility] [facility] 08/11/2018 Allergic rhinitis Established Patient with Cindy Oen [employer] 08/11/2018 Prehypertension Established Patient with Cindy Oen [employer] 08/11/2018 Acute pharyngitis Established Patient with Cindy Oen [employer] 07/22/2018 Assessment of cough Established Patient with Cindy Oen [employer] 07/22/2018 Assessment of fever Established Patient with Cindy Oen [employer] 07/22/2018 Bronchiolitis infectious Established Pat ient with Cindy Oen [employer] 07/22/2018 Upper respiratory infection Established Patient with Cindy Oen [employer] 07/22/2018 [facility] Work Phone: Evaluation note Includes: Assessments for all patient encounters Findings Encounter Date Acute sinusitis Open Access - Establ ished with Noemi Givens [employer] 01/24/2021 Obesity due to excess calories Open Acce ss - Established with Noemi Givens CNP 01/24/2021 Z68.37 - Body mass index [BM I] 37.0-37.9, adult Open Access - Established with Noemi Givens CNP 01/24/2021 Body mass index Medical New Patient with Shazia Bhatti CNP 11/26/2020 Dast - 10 Score was 0 11/26/2020 Medical New Patient with Shazia Bhatti [employer] [facility] 11/26/2020 J01.90 - Acute sinusitis, unspecified Me dical New Patient with Shaziatea Sewellrad [employer] 11/26/2020 Obesity due to excess calories Medical N ew Patient with Shaziatea Sewellrad [employer] 11/26/2020 PHQ-9: total score was eight 11/26/2020 M edical New Patient with Shazia eSwellrad [employer] 11/26/2020 Prediabetes Medical New Patient with Shazia Sewellrad [employer] 11/26/2020 Dependence on nicotine in ci garettes - uncomplicated BH Established Patient with Mimi Hueve [employer] 09/19/2020 Moderate recurrent major depression BH E stablished Patient with Mimi Hueve [employer] 09/19/2020 Sleep disorder BH Established Patie nt with Mimi Hueve [employer] 09/19/2020 Body mass index [BMI] 37.0-37.9, adult M edical Established Patient with Maty Maag [employer] 09/19/2020 Chronic pain Medical Established Patient with Maty Maag [employer] 09/19/2020 Dependence on nicotine in ci garettes - uncomplicated Medical Established Patient with Maty Maag [employer] 09/19/2020 Encounter for screening for diabetes mellitus Medical Established Patient with Maty Maag [employer] 09/19/2020 Fibromyalgia Medical Established Patient with Maty Maag [employer] 09/19/2020 Generalized anxiety disorder Medical Est ablished Patient with Maty Maag [employer] 09/19/2020 Moderate recurrent major depression [facility] [place] Established Patient with Maty Maag [employer] 09/19/2020 Sleep disorder Medical Established Patient with Maty Maag [employer] 09/19/2020 Exposure to a viral disease Telemedicine New Patient with Ro Austin [employer] 09/07/2020 Encounter for Immunization 1st COVID Vac cine with Xi Roberson PharmD 08/27/2020 Generalized anxiety disorder Telebeha vioral Health with Mimi Hueve [employer] 03/05/2020 Moderate recurrent major depression T elebehavioral Health with Mimi Hueve [employer] 03/05/2020 Nicotine dependence uncomplicated Tel ebehavioral Health with Mimi Hueve [employer] 03/05/2020 Chronic sinusitis, unspecified Telemedic ine Establisted Patient with Maty Maag [employer] 03/05/2020 Magnesium deficiency Telemedicine Establ isted Patient with Maty Maag [employer] 03/05/2020 Nicotine dependence, unspeci fied, uncomplicated [facility]medicine [facility] Vitamin D deficiency, unspecified [facility]me dicine [facility]2020 B07.9 - Viral wart, unspecified Medical Established Patient with Noemi Givens [employer] 01/23/2020 Epidermal inclusion cyst Medical Establi shed Patient with Noemi Givens [facility] 01/23/2020 L82.1 - Other seborrheic keratosis Medic al Established Patient with Noemi Givens [facility] 01/23/2020 Obesity due to excess calories Medical E stablished Patient with Noemi Givens [facility] 01/23/2020 Z68.39 - Body mass index (BM I) 39.0-39.9, adult Medical Established Patient with Noemi Givens [facility] 01/23/2020 Bipolar disorder, current ep isode hypomanic [facility] Body mass index Telemedicine with Maty Gonzalez NP 11/27/2019 Chronic sinusitis, unspecified Telemedicine with Maty [facility] 11/27/2019 Nicotine dependence, unspeci fied, uncomplicated Telemedicine with Maty [facility] 11/27/2019 Obesity due to excess calories Telemedicine with Maty [facility] 11/27/2019 Fibromyalgia Telemedicine with Maty Madoyle Gonzalez [employer]IPMENT [employer] 09/28/2019 Generalized anxiety disorder Telemedicine with Deandre Love [facility] 09/28/2019 Major depressive disorder, r ecurrent, moderate Telemedicine with Maty [facility] 09/28/2019 Nicotine dependence, cigaret leonel, uncomplicated [facility] Generalized anxiety disorder Establis hed Patient with Mimi Hueve [employer] 08/18/2019 Mild recurrent major depression Estab lished Patient with Mimi Hueve [employer] 08/18/2019 Nicotine dependence uncomplicated BH Est ablished Patient with Mimi Hueve [employer] 08/18/2019 Allergy, unspecified, initial encounter Medical [facility] Body mass index (BMI) 38.0-38.9, adult M edical [facility]2019 Chronic obstructive pulmonar y disease, unspecified Medical [facility] Chronic pain syndrome Medical [facility]he d [facility] Diabetes Risk Test Score was five score 08/18/2019 Medical Established Patient with Maty Love [employer] 08/18/2019 Fibromyalgia Medical Established Patient with Maty Love [employer] 08/18/2019 Generalized anxiety disorder Medical Est ablished Patient with Maty Love [employer] 08/18/2019 Major depressive disorder, r ecurrent, moderate Medical Established Patient with Maty Love [employer] 08/18/2019 Nicotine dependence, unspeci fied, uncomplicated Medical Established Patient with Maty Love [employer] 08/18/2019 Obesity due to excess calories Medical E stablished Patient with Maty Love [employer] 08/18/2019 Prediabetes Medical Established Patient with Maty Love [employer] 08/18/2019 Sleep disorder, unspecified Medical Esta blished Patient with Maty Love [employer] 08/18/2019 Acute laryngopharyngitis Medical Establi shed Patient with Cindy Alexandran [employer] 07/13/2019 Acute pansinusitis unspecified Medical E stablished Patient with Cindy Oen [employer] 07/13/2019 Body mass index Medical Established Patient with Cindy Oen [employer] 07/13/2019 Obesity due to excess calories Medical E stablished Patient with Cindy Oen [employer] 07/13/2019 Generalized anxiety disorder BH Establis hed Patient with Mimi Jacke [employer] 01/06/2019 Moderate recurrent major depression BH E stablished Patient with Mimi Hueve [employer] 01/06/2019 Anxiety disorder NOS Medical Established Patient with Cindy Oen [employer] 01/06/2019 Anxiety disorder of unknown (axis III) etiology Medical Established Patient with Cindy Oen [employer] 01/06/2019 Depression Medical Established Patient with Cindy Oen [employer] 01/06/2019 Generalized anxiety disorder Medical Est ablished Patient with Cindy Oen [employer] 01/06/2019 Adjustment disorder BH Established Patie nt with Leilani ESCOBAR-S 10/06/2018 Body mass index Medical Established Patient with Cindy Oen [employer] 10/06/2018 Dast - 10 Score was 0 10/06/2018 Medical Established Patient with Cindy Oen [employer] 10/06/2018 PHQ-9: total score was eight 10/06/2018 M edical Established Patient with Cindy Oen [employer] 10/06/2018 Viral gastroenteritis (Eleva virus) Me dical Established Patient with Cindy Oen [employer] 10/06/2018 Viral infection Medical Established Patient with Cindy Oen [employer] 10/06/2018 swelling in ven[place]- seein g an ENT- trying to get shots for her allergies Medical Established Patient with Cindy Lopes [employer] 08/11/2018 Allergic rhinitis Medical Established Patient with Cindy Lopes [employer] 08/11/2018 Prehypertension Medical Established Patient with Cindy Lopes [employer] 08/11/2018 Acute pharyngitis Medical Established Patient with Cindy Lopes [employer] 07/22/2018 Assessment of cough Medical Established Patient with Cindy Alexandrakadi [employer] 07/22/2018 Assessment of fever Medical Established Patient with Cindy Alexandrakadi [employer] 07/22/2018 Bronchiolitis infectious Medical Establi shed Patient with Cindy Lopes [employer] 07/22/2018 Upper respiratory infection Medical Esta blished Patient with Cindy Alexandrakadi [employer] 07/22/2018 [facility] Work Phone: Evaluation note Includes: Assessments for all patient encounters Findings Encounter Date Hypertrophic scar Medical Established Patient with Noemi Givens [facility] 03/04/2021 Seborrheic keratosis Medical Established Patient with Noemi Givens [facility] 03/04/2021 Z68.38 - Body mass index [BM I] 38.0-38.9, adult Medical Established Patient with Noemi Givens [facility] 03/04/2021 Acute sinusitis Open Access - Establ ished with Noemi Givens [facility] 01/24/2021 Obesity due to excess calories Open Acce ss - Established with Noemi [facility] 01/24/2021 Z68.37 - Body mass index [BM I] 37.0-37.9, adult Open Access - Established with Noemi [facility] 01/24/2021 Body mass index Medical New Patient with Shazia Sewellrad [facility] 11/26/2020 Dast - 10 Score was 0 11/26/2020 Medical New Patient with Shazia Sewellrad [facility] 11/26/2020 J01.90 - Acute sinusitis, unspecified Me dical New Patient with Shazia Sewellrad [employer] 11/26/2020 Obesity due to excess calories Medical N ew Patient with Shazia Sewellrad [employer] 11/26/2020 PHQ-9: total score was eight 11/26/2020 M edical New Patient with Shazia Sewellrad [facility] 11/26/2020 Prediabetes Medical New Patient with Shazia Sewellrad [employer] 11/26/2020 Dependence on nicotine in ci garettes - uncomplicated BH Established Patient with Mimi Hueve [employer] 09/19/2020 Moderate recurrent major depression BH E stablished Patient with Mimi Hueve [employer] C[employer] 09/19/2020 Sleep disorder BH Established Patie nt with Mimi Hueve [employer] 09/19/2020 Body mass index [BMI] 37.0-37.9, adult M edical Established Patient with Maty Love [employer] 09/19/2020 Chronic pain Medical Established Patient with Matycara Love [employer] 09/19/2020 Dependence on nicotine in ci garettes - uncomplicated Medical Established Patient with Maty Chandlerag [employer] 09/19/2020 Encounter for screening for diabetes mellitus Medical Established Patient with Maty Maag [employer] 09/19/2020 Fibromyalgia Medical Established Patient with Maty Maag [employer] 09/19/2020 Generalized anxiety disorder Medical Est ablished Patient with Maty Maag [employer] 09/19/2020 Moderate recurrent major depression [place] Established Patient with Maty Maag [employer] 09/19/2020 Sleep disorder Medical Established Patient with Maty Love [employer] 09/19/2020 Exposure to a viral disease Telemedicine New Patient with Ro Austin [employer] 09/07/2020 Encounter for Immunization 1st COVID Vac cine with Xi Roberson PharmD 08/27/2020 Generalized anxiety disorder Telebeha vioral Health with Mimi Hueve [employer] C[employer] 03/05/2020 Moderate recurrent major depression T elebehavioral Health with Mimi Hueve [employer] C[employer] 03/05/2020 Nicotine dependence uncomplicated Tel ebehavioral Health with Mimi Hupetere [employer] C[employer] 03/05/2020 Chronic sinusitis, unspecified Telemedic ine Establisted Patient with Maty Maag [employer] 03/05/2020 Magnesium deficiency Telemedicine Establ isted Patient with Maty Love [employer] 03/05/2020 Nicotine dependence, unspeci fied, uncomplicated Telemedicine Establisted Patient with Maty Maag [employer] 03/05/2020 Vitamin D deficiency, unspecified Teleme dicine Establisted Patient with Maty Maag [employer] 03/05/2020 B07.9 - Viral wart, unspecified Medical Established Patient with Noemi Chon [employer] 01/23/2020 Epidermal inclusion cyst Medical Establi shed Patient with Noemi Chon [employer] 01/23/2020 L82.1 - Other seborrheic keratosis Medic al Established Patient with Noemi Chon [employer] 01/23/2020 Obesity due to excess calories Medical E stablished Patient with Noemi Givens [facility] 01/23/2020 Z68.39 - Body mass index (BM I) 39.0-39.9, adult Medical Established Patient with Noemi Givens [facility] 01/23/2020 Bipolar disorder, current ep isode hypomanic [facility] Body mass index Telemedicine with Maty Gonzalez [employer] 11/27/2019 Chronic sinusitis, unspecified Telemedicine with Maty [facility] 11/27/2019 Nicotine dependence, unspeci fied, uncomplicated [facility] Obesity due to excess calories Telemedicine with Maty [facility] 11/27/2019 Fibromyalgia Telemedicine with Maty Chandlerdoyle Gonzalez [employer] CLE[employer] 09/28/2019 Generalized anxiety disorder Telemedicine with Deandre Love [facility] 09/28/2019 Major depressive disorder, r ecurrent, moderate Telemedicine with Maty [facility] 09/28/2019 Nicotine dependence, cigaret leonel, uncomplicated Telemedicine with Maty [facility] 09/28/2019 Generalized anxiety disorder BH Establis hed Patient with Mimipaty Santiagoe [facility] 08/18/2019 Mild recurrent major depression [facility] 08/18/2019 Nicotine dependence uncomplicated BH Est ablished Patient with Mimipaty Santiagoe [facility] 08/18/2019 Allergy, unspecified, initial encounter Medical [facility] Body mass index (BMI) 38.0-38.9, adult M edical [facility] Chronic obstructive pulmonar y disease, unspecified Medical [facility] Chronic pain syndrome Medical [facility]he d [facility] Diabetes Risk Test Score was five score 08/18/2019 [facility] Fibromyalgia [facility] Generalized anxiety disorder Medical Est ablished [facility] Major depressive disorder, r ecurrent, moderate Medical [facility] Nicotine dependence, unspeci fied, uncomplicated Medical [facility] Obesity due to excess calories Medical E stablished Patient with Maty Love [employer] 08/18/2019 Prediabetes Medical Established Patient with Maty Love [employer] 08/18/2019 Sleep disorder, unspecified Medical Esta blished Patient with Maty Chandlerag [employer] 08/18/2019 Acute laryngopharyngitis Medical Establi shed Patient with Cindy Oen [employer] 07/13/2019 Acute pansinusitis unspecified Medical E stablished Patient with Cindy Oen [employer] M[employer] 07/13/2019 Body mass index Medical Established Patient with Cindy Oen [employer] 07/13/2019 Obesity due to excess calories Medical E stablished Patient with Cindy Oen [employer] 07/13/2019 Generalized anxiety disorder BH Establis hed Patient with Mimi Hueve [employer] 01/06/2019 Moderate recurrent major depression BH E stablished Patient with Mimi Hueve [employer] 01/06/2019 Anxiety disorder NOS Medical Established Patient with Cindy Oen [employer] 01/06/2019 Anxiety disorder of unknown (axis III) etiology Medical Established Patient with Cindy Oen [employer] 01/06/2019 Depression Medical Established Patient with Cindy Oen [employer] 01/06/2019 Generalized anxiety disorder Medical Est ablished Patient with Cindy Oen [employer] 01/06/2019 Adjustment disorder BH Established Patie nt with Leilani Tevin [facility] 10/06/2018 Body mass index Medical Established Patient with Cindy Oen [employer] 10/06/2018 Dast - 10 Score was 0 10/06/2018 Medical Established Patient with Cindy Oen [employer] 10/06/2018 PHQ-9: total score was eight 10/06/2018 M edical Established Patient with Cindy Oen [employer] 10/06/2018 Viral gastroenteritis (Eleva virus) Me dical Established Patient with Cindy Oen [employer] 10/06/2018 Viral infection Medical Established Patient with Cindy Oen [employer] 10/06/2018 swelling in veneculla- seein g an ENT- trying to get shots for her allergies Medical Established Patient with Cindy Oen [employer] 08/11/2018 Allergic rhinitis Medical Established Patient with Cindy Oen [employer] 08/11/2018 Prehypertension Medical Established Patient with Cindy Oen [employer] 08/11/2018 Acute pharyngitis Medical Established Patient with Cindy Oen [employer] 07/22/2018 Assessment of cough Medical Established Patient with Cindy Oen [employer] 07/22/2018 Assessment of fever Medical Established Patient with Cindy Oen [employer] 07/22/2018 Bronchiolitis infectious Medical Establi shed Patient with Cindy Alexandrakadi [employer] 07/22/2018 Upper respiratory infection Medical Esta blished Patient with Cindy Alexandrakadi [employer] PA[employer] M[employer]ER 07/22/2018 Health [facility] Work Phone: Evaluation note Assessments not supported for this document type No Assessments RecordedHealth [facility] Work Phone: Evaluation noteNo assessment information availableSelect [facility]: Evaluation note* Diagnosis Onset Date Resolution Status Abnormal stress test acute Aortic regurgitation chronic COPD (chronic obstructive pulmonary disease) chronic Fibromyalgia chronic Hyperlipidemia chronic Nicotine dependence chronic [facility] Work Phone: History of Present illness Narrative History of Present Illness not supported for this document type No History of Present Illness RecordedHealth [facility] Work Phone: Hospital Discharge instructions Additional Instructions Radial Cath Home Going Instructions No lifting greater than 2 pounds with right wrist for 10 days No driving for 48 hours after your procedure May remove wrist dressing and shower 24 hours after initial dressing was applied: 10/15/22 after 7:30PM. Wash area with soap and water. Apply a Bandaid to site. Keep covered with Bandaid for 5 days total--changing Bandaid daily. Do not submerge wrist in water until follow up appointment No tub baths, hot tubs, or swimming until you have been to your follow up appointment Keep crm system administrator appointment as scheduled Call your crm system administrator if any signs of bleeding, swelling, pain, redness, numbness, tingling, weakness or coolness of the extremity occur Return to work schedule will be addressed by your crm system administrator at the follow up appointment. Additional Wound Instructions: [facility] Work Phone: Hospital Discharge instructions Additional Instructions Please keep yourself well-hydrated and use of Lomotil to stop the loose stool/diarrhea and you may add the Phenergan/promethazine on top of the Zofran if needed for further nausea/vomit control. If you have any further concerns or worsening symptoms please [facility] Work [facility]: Instructions Instructions not supported for this document type No Instructions RecordedHealth [facility] Work Phone: patient problem outcome Narrative Includes: Evaluations & Outcomes for active Goals No Outcomes RecordedHealth [facility] Work Phone: reason for referral (narrative)No Reason for Referral RecordedHealth [facility] Work Phone: Review of systems Narrative - Reported Review of Systems not supported for this document type No Review of Systems RecordedHealth [facility] Work Phone: Summary Purpose Family History No Family History Records Found Description Last Updated Family history of heart disease 01/07/20 Family history of hypertension 9 Family history unchanged 01/06/2019 Family in good health 01/06/2019 Maternal history of breast neoplasm 12/19 Relationship Condition Age at Onset Recorded Date/T olivier Unknown Medical History?Cancer Unknown September 10, 2020 8:01am Medical History?Hear t Disease, Diabetes Unknown January 06, 2018 1:45pm Medical History?Hear t Disease, Diabetes Unknown September 10, 2020 8:01am Additional Family History?BREAST Unknown January 06, 2018 1:45pm Additional Family History?BREAST Unknown September 10, 2020 8:01am Relationship Condition Age at Onset Recorded Date/T olivier Unknown Medical History?Cancer Unknown September 10, 2020 7:01am Medical History?Hear t Disease, Diabetes Unknown January 06, 2018 12:45pm Medical History?Hear t Disease, Diabetes Unknown September 10, 2020 7:01am Additional Family History?BREAST Unknown January 06, 2018 12:45pm Additional Family History?BREAST Unknown September 10, 2020 7:01am Advance Directives No Advanced Directives Records FoundDocuments on File Type Date Recorded Patient Campus Rec[facility]ship Expl anation ACP-Advance Directive ACP-Power of Teleradiologist Advance Directive Response Recorded Date/ Time [facility] DNR Comfort Care No Directive, No SS Referral September 10, 2020 8:01am [facility] DNR Comfort Ca re Arrest No Directive, No SS Referral September 10, 2020 8:01am Living Will No Directive, No SS Referral [facility] 2020 8:01am Durable Power of Teleradiologist [facility] No Directive, No SS Referral September 10, 2020 8:01am Advance Directive Response Recorded Date/ Time [facility] DNR Comfort Care No Directive, No SS Referral September 10, 2020 7:01am [facility] DNR Comfort Ca re Arrest No Directive, No SS Referral September 10, 2020 7:01am Living Will No Directive, No SS Referral Mar 2020 7:01am Durable Power of Teleradiologist fo r Health Care No Directive, No SS Referral September 10, 2020 7:01am Advance Directive Response Recorded Date/ Time Living Will No July 28 6:39am Power of Teleradiologist No July 28, 2023 6:39am Assessments Findings Encounter Date Adjustment disorder Established Patie nt with Leilani ESCOBAR-S 10/06/2018 Body mass index Medical Established Patient with Cindy Oen [employer] 10/06/2018 Dast - 10 Score was 0 10/06/2018 Medical Established Patient with Cindy Oen [employer] PA[employer] M[employer] 10/06/2018 PHQ-9: total score was eight 10/06/2018 M edical Established Patient with Cindy Oen [employer] PA[employer] M[employer] 10/06/2018 Viral gastroenteritis (Eleva virus) Me dical Established Patient with Cindy Oen [employer] PAINT M[employer]ER 10/06/2018 Viral infection Medical Established Patient with Cindy Oen [employer] PAINT M[employer] 10/06/2018 swelling in veneculla- seein g an ENT- trying to get shots for her allergies Medical Established Patient with Cindy Oen [employer] PA[employer] M[employer] 08/11/2018 Allergic rhinitis Medical Established Patient with Cindy Oen [employer] PA[employer] M[employer] 08/11/2018 Prehypertension Medical Established Patient with Cindy Oen [employer] PA[employer] M[employer] 08/11/2018 Acute pharyngitis Medical Established Patient with Cindy Oen [employer] PA[employer] M[employer] 07/22/2018 Assessment of cough Medical Established Patient with Cindy Oen [employer] PA[employer] M[employer] 07/22/2018 Assessment of fever Medical Established Patient with Cindy Oen [employer] PA[employer] M[employer] 07/22/2018 Bronchiolitis infectious Medical Establi shed Patient with Cindy Oen [employer] PA[employer] 07/22/2018 Upper respiratory infection Medical Esta blished Patient with Cindy Oen [employer] PA[employer] M[employer] 07/22/2018 Findings Encounter Date Generalized anxiety disorder Establis hed Patient with Mimi Hueve [employer] 01/06/2019 Moderate recurrent major depression E stablished Patient with Mimi Hueve [employer]OCK[employer] C[employer] 01/06/2019 Adjustment disorder Established Patie nt with Leilanicarlos ESCOBAR-S 10/06/2018 Body mass index Medical Established Patient with Cindy Oen [employer] PAINT M[employer] 10/06/2018 Dast - 10 Score was 0 10/06/2018 Medical Established Patient with Cindy Oen [employer] PA[employer] M[employer] 10/06/2018 PHQ-9: total score was eight 10/06/2018 M edical Established Patient with Cindy Oen [employer] PA[employer] M[employer] 10/06/2018 Viral gastroenteritis (Eleva virus) Me dical Established Patient with Cindy Oen [employer] PA[employer] M[employer] 10/06/2018 Viral infection Medical Established Patient with Cindy Oen [employer] PA[employer] M[employer] 10/06/2018 swelling in veneculla- seein g an ENT- trying to get shots for her allergies Medical Established Patient with Cindy Oen [employer] M[employer] 08/11/2018 Allergic rhinitis Medical Established Patient with Cindy Oen [employer] PA[employer] M[employer] 08/11/2018 Prehypertension Medical Established Patient with Cindy Oen [employer] PA[employer] M[employer] 08/11/2018 Acute pharyngitis Medical Established Patient with Cindy Oen [employer] PAINT M[employer] 07/22/2018 Assessment of cough Medical Established Patient with Cindy Oen HAND PAINT MIXER 07/22/2018 Assessment of fever Medical Established Patient with Cindy Oen [employer] PA[employer] M[employer] 07/22/2018 Bronchiolitis infectious Medical Establi shed Patient with Cindy Oen [employer] PAINT MIX[employer] 07/22/2018 Upper respiratory infection Medical Esta blished Patient with Cindy Oen [employer] PAINT MIXER 07/22/2018 Findings Encounter Date Generalized anxiety disorder Establis hed Patient with Mimi Hueve [employer]OCK[employer] C[employer] 01/06/2019 Moderate recurrent major depression BH E stablished Patient with Mimi Hueve [employer]OCK[employer] C[employer] 01/06/2019 Anxiety disorder NOS Medical Established Patient with Cindy Oen [employer] 01/06/2019 Anxiety disorder of unknown (axis III) etiology Medical Established Patient with Cindy Oen [employer] PA[employer] M[employer] 01/06/2019 Depression Medical Established Patient with Cindy Oen [employer] M[employer] 01/06/2019 Generalized anxiety disorder Medical Est ablished Patient with Cindy Oen [employer] PA[employer] M[employer] 01/06/2019 Adjustment disorder BH Established Patie nt with Leilani ESCOBAR-S 10/06/2018 Body mass index Medical Established Patient with Cindy Oen [employer] PAINT M[employer]ER 10/06/2018 Dast - 10 Score was 0 10/06/2018 Medical Established Patient with Cindy Oen [employer] PAINT MIXER 10/06/2018 PHQ-9: total score was eight 10/06/2018 M edical Established Patient with Icndy Oen HAND PAINT MIXER 10/06/2018 Viral gastroenteritis (Eleva virus) Me dical Established Patient with Cindy Oen [employer] PAINT MIXER 10/06/2018 Viral infection Medical Established Patient with Cindy Oen [employer] PAINT MIXER 10/06/2018 swelling in veneculla- seein g an ENT- trying to get shots for her allergies Medical Established Patient with Cindy Oen [employer] PA[employer] M[employer] 08/11/2018 Allergic rhinitis Medical Established Patient with Cindy Oen [employer] PA[employer] M[employer] 08/11/2018 Prehypertension Medical Established Patient with Cindy Oen [employer] PAINT M[employer] 08/11/2018 Acute pharyngitis Medical Established Patient with Cindy Oen [employer] PAINT MIXER 07/22/2018 Assessment of cough Medical Established Patient with Cindy Oen HAND PAINT MIXER 07/22/2018 Assessment of fever Medical Established Patient with Cindy Oen [employer] PAINT MIXER 07/22/2018 Bronchiolitis infectious Medical Establi shed Patient with Cindy Oen HAND PAINT MIXER 07/22/2018 Upper respiratory infection Medical Esta blished Patient with Cindy Oen HAND PAINT MIXER 07/22/2018 Findings Encounter Date Acute laryngopharyngitis Medical Establi shed Patient with Cindy Oen HAND PAINT MIXER 07/13/2019 Acute pansinusitis unspecified Medical E stablished Patient with Cindy Oen HAND PAINT MIXER 07/13/2019 Body mass index Medical Established Patient with Cindy Oen HAND PAINT MIXER 07/13/2019 Obesity due to excess calories Medical E stablished Patient with Cindy Oen HAND PAINT MIXER 07/13/2019 Generalized anxiety disorder BH Establis hed Patient with Mimi Hueve POCK[employer] C[employer] 01/06/2019 Moderate recurrent major depression BH E stablished Patient with Mimi Hueve POCKET CUTTER 01/06/2019 Anxiety disorder NOS Medical Established Patient with Cindy Oen [employer] PAINT M[employer]ER 01/06/2019 Anxiety disorder of unknown (axis III) etiology Medical Established Patient with Cindy Oen [employer] PAINT MIXER 01/06/2019 Depression Medical Established Patient with Cindy Oen [employer] PAINT MIXER 01/06/2019 Generalized anxiety disorder Medical Est ablished Patient with Cindy Oen [employer] PAINT MIXER 01/06/2019 Adjustment disorder BH Established Patie nt with Leilani PAVONS 10/06/2018 Body mass index Medical Established Patient with Cindy Oen [employer] PAINT MIXER 10/06/2018 Dast - 10 Score was 0 10/06/2018 Medical Established Patient with Cindy Oen HAND PAINT MIXER 10/06/2018 PHQ-9: total score was eight 10/06/2018 M edical Established Patient with Cindy Oen [employer] PAINT MIXER 10/06/2018 Viral gastroenteritis (Eleva virus) Me dical Established Patient with Cindy Oen HAND PAINT MIXER 10/06/2018 Viral infection Medical Established Patient with Cindy Oen HAND PAINT MIXER 10/06/2018 swelling in venec[place]- seein g an ENT- trying to get shots for her allergies Medical Established Patient with Cindy Oen [employer] PAINT MIXER 08/11/2018 Allergic rhinitis Medical Established Patient with Cindy Oen HAND PAINT MIXER 08/11/2018 Prehypertension Medical Established Patient with Cindy Oen [employer] PAINT M[employer] 08/11/2018 Acute pharyngitis Medical Established Patient with Cindy Oen HAND PAINT MIXER 07/22/2018 Assessment of cough Medical Established Patient with Cindy Oen HAND PAINT MIXER 07/22/2018 Assessment of fever Medical Established Patient with Cindy Oen [employer] PAINT MIXER 07/22/2018 Bronchiolitis infectious Medical Establi shed Patient with Cindy Oen HAND PAINT MIXER 07/22/2018 Upper respiratory infection Medical Esta blished Patient with Cindy Oen HAND PAINT MIXER 07/22/2018 Findings Encounter Date Generalized anxiety disorder BH Establis hed Patient with Mimi Hueve POCK[employer] C[employer] 08/18/2019 Mild recurrent major depression BH Estab lished Patient with Mimi Hueve POCK[employer] CUTTER 08/18/2019 Nicotine dependence uncomplicated BH Est ablished Patient with Mimi Hueve POCK[employer] C[employer] 08/18/2019 Body mass index (BMI) 38.0-38.9, adult M edical Established Patient with Maty Maag [employer] PAINT MIXER 08/18/2019 Obesity due to excess calories Medical E stablished Patient with Maty Maag [employer] PAINT MIXER 08/18/2019 Acute laryngopharyngitis Medical Establi shed Patient with Cindy Oen HAND PAINT MIXER 07/13/2019 Acute pansinusitis unspecified Medical E stablished Patient with Cindy Oen HAND PAINT MIXER 07/13/2019 Body mass index Medical Established Patient with Cindy Oen HAND PAINT MIXER 07/13/2019 Obesity due to excess calories Medical E stablished Patient with Cindy Oen HAND PAINT MIXER 07/13/2019 Generalized anxiety disorder BH Establis hed Patient with Mimi Hueve POCKET CUTTER 01/06/2019 Moderate recurrent major depression BH E stablished Patient with Mimi Hueve POCKET CUTTER 01/06/2019 Anxiety disorder NOS Medical Established Patient with Cindy Oen HAND PAINT MIXER 01/06/2019 Anxiety disorder of unknown (axis III) etiology Medical Established Patient with Cindy Oen HAND PAINT MIXER 01/06/2019 Depression Medical Established Patient with Cindy Oen [employer] PAINT MIXER 01/06/2019 Generalized anxiety disorder Medical Est ablished Patient with Cindy Oen HAND PAINT MIXER 01/06/2019 Adjustment disorder BH Established Patie nt with Leilani Tevin REED 10/06/2018 Body mass index Medical Established Patient with Cindy Oen HAND PAINT MIXER 10/06/2018 Dast - 10 Score was 0 10/06/2018 Medical Established Patient with Cindy Oen HAND PAINT MIXER 10/06/2018 PHQ-9: total score was eight 10/06/2018 M edical Established Patient with Cindy Oen HAND PAINT MIXER 10/06/2018 Viral gastroenteritis (Eleva virus) Me dical Established Patient with Cindy Oen HAND PAINT MIXER 10/06/2018 Viral infection Medical Established Patient with Cindy Oen HAND PAINT MIXER 10/06/2018 swelling in ven[place]- seein g an ENT- trying to get shots for her allergies Medical Established Patient with Cindy Oen HAND PAINT MIXER 08/11/2018 Allergic rhinitis Medical Established Patient with Cindy Oen HAND PAINT MIXER 08/11/2018 Prehypertension Medical Established Patient with Cindy Oen HAND PAINT MIXER 08/11/2018 Acute pharyngitis Medical Established Patient with Cindy Oen HAND PAINT MIXER 07/22/2018 Assessment of cough Medical Established Patient with Cindy Oen HAND PAINT MIXER 07/22/2018 Assessment of fever Medical Established Patient with Cindy Oen HAND PAINT MIXER 07/22/2018 Bronchiolitis infectious Medical Establi shed Patient with Cindy Oen HAND PAINT MIXER 07/22/2018 Upper respiratory infection Medical Esta blished Patient with Cindy Oen HAND PAINT MIXER 07/22/2018 Findings Encounter Date Generalized anxiety disorder BH Establis hed Patient with Mimi Hueve POCKET CUTTER 08/18/2019 Mild recurrent major depression BH Estab lished Patient with Mimi Hueve POCK[employer] C[employer]TER 08/18/2019 Nicotine dependence uncomplicated BH Est ablished Patient with Mimi Hueve POCKET CUTTER 08/18/2019 Allergy, unspecified, initial encounter Medical Established Patient with Maty Maag HAND PAINT MIXER 08/18/2019 Body mass index (BMI) 38.0-38.9, adult M edical Established Patient with Maty Maag HAND PAINT MIXER 08/18/2019 Chronic obstructive pulmonar y disease, unspecified Medical Established Patient with Maty Maag HAND PAINT MIXER 08/18/2019 Chronic pain syndrome Medical Establishe d Patient with Maty Maag HAND PAINT MIXER 08/18/2019 Diabetes Risk Test Score was five score 08/18/2019 Medical Established Patient with Maty Maag HAND PAINT MIXER 08/18/2019 Fibromyalgia Medical Established Patient with Maty Maag HAND PAINT MIXER 08/18/2019 Generalized anxiety disorder Medical Est ablished Patient with Maty Love HAND PAINT MIXER 08/18/2019 Major depressive disorder, r ecurrent, moderate Medical Established Patient with Maty Love HAND PAINT MIXER 08/18/2019 Nicotine dependence, unspeci fied, uncomplicated Medical Established Patient with Maty Love HAND PAINT MIXER 08/18/2019 Obesity due to excess calories Medical E stablished Patient with Maty Love HAND PAINT MIXER 08/18/2019 Prediabetes Medical Established Patient with Maty Love HAND PAINT MIXER 08/18/2019 Sleep disorder, unspecified Medical Esta blished Patient with Maty Love HAND PAINT MIXER 08/18/2019 Acute laryngopharyngitis Medical Establi shed Patient with Cindy Alexandran HAND PAINT MIXER 07/13/2019 Acute pansinusitis unspecified Medical E stablished Patient with Cindy Oen HAND PAINT MIXER 07/13/2019 Body mass index Medical Established Patient with Cindy Oen HAND PAINT MIXER 07/13/2019 Obesity due to excess calories Medical E stablished Patient with Cindy Oen HAND PAINT MIXER 07/13/2019 Generalized anxiety disorder BH Establis hed Patient with Mimi Hueve POCKET CUTTER 01/06/2019 Moderate recurrent major depression BH E stablished Patient with Mimi Hueve POCKET CUTTER 01/06/2019 Anxiety disorder NOS Medical Established Patient with Cindy Oen HAND PAINT MIXER 01/06/2019 Anxiety disorder of unknown (axis III) etiology Medical Established Patient with Cindy Oen HAND PAINT MIXER 01/06/2019 Depression Medical Established Patient with Cindy Oen HAND PAINT MIXER 01/06/2019 Generalized anxiety disorder Medical Est ablished Patient with Cindy Oen HAND PAINT MIXER 01/06/2019 Adjustment disorder Established Patie nt with Leilani PAVONS 10/06/2018 Body mass index Medical Established Patient with Cindy Oen HAND PAINT MIXER 10/06/2018 Dast - 10 Score was 0 10/06/2018 Medical Established Patient with Cindy Oen HAND PAINT MIXER 10/06/2018 PHQ-9: total score was eight 10/06/2018 M edical Established Patient with Cindy Oen HAND PAINT MIXER 10/06/2018 Viral gastroenteritis (Eleva virus) Me dical Established Patient with Cindy Oen HAND PAINT MIXER 10/06/2018 Viral infection Medical Established Patient with Cindy Oen HAND PAINT MIXER 10/06/2018 swelling in [place]- seein g an ENT- trying to get shots for her allergies Medical Established Patient with Cindy Oen HAND PAINT MIXER 08/11/2018 Allergic rhinitis Medical Established Patient with Cindy Oen HAND PAINT MIXER 08/11/2018 Prehypertension Medical Established Patient with Cindy Oen HAND PAINT MIXER 08/11/2018 Acute pharyngitis Medical Established Patient with Cindy Oen HAND PAINT MIXER 07/22/2018 Assessment of cough Medical Established Patient with Cindy Oen HAND PAINT MIXER 07/22/2018 Assessment of fever Medical Established Patient with Cindy Oen HAND PAINT MIXER 07/22/2018 Bronchiolitis infectious Medical Establi shed Patient with Cindy Oen HAND PAINT MIXER 07/22/2018 Upper respiratory infection Medical Esta blished Patient with Cindy Oen HAND PAINT MIXER 07/22/2018 Findings Encounter Date Fibromyalgia Telemedicine with Maty Gonzalez EQUIPMENT CLEANER 09/28/2019 Generalized anxiety disorder Telemedicine with Deandre Love CNP 09/28/2019 Major depressive disorder, r ecurrent, moderate Telemedicine with Maty Chandlerdoyle HAND PAINT MIXER 09/28/2019 Nicotine dependence, cigaret leonel, uncomplicated Telemedicine with Maty Chandlerdoyle HAND PAINT MIXER 09/28/2019 Generalized anxiety disorder BH Establis hed Patient with Mimi Santiagoe POCKET CUTTER 08/18/2019 Mild recurrent major depression Estab lished Patient with Mimi Hueve POCKET CUTTER 08/18/2019 Nicotine dependence uncomplicated BH Est ablished Patient with Mimi Hueve POCKET CUTTER 08/18/2019 Allergy, unspecified, initial encounter Medical Established Patient with Maty Love HAND PAINT MIXER 08/18/2019 Body mass index (BMI) 38.0-38.9, adult M edical Established Patient with Maty Love HAND PAINT MIXER 08/18/2019 Chronic obstructive pulmonar y disease, unspecified Medical Established Patient with Maty Love HAND PAINT MIXER 08/18/2019 Chronic pain syndrome Medical Establishe d Patient with Matycaar Love HAND PAINT MIXER 08/18/2019 Diabetes Risk Test Score was five score 08/18/2019 Medical Established Patient with Maty Love HAND PAINT MIXER 08/18/2019 Fibromyalgia Medical Established Patient with Maty Love HAND PAINT MIXER 08/18/2019 Generalized anxiety disorder Medical Est ablished Patient with Maty Madoyle HAND PAINT MIXER 08/18/2019 Major depressive disorder, r ecurrent, moderate Medical Established Patient with Maty Maag HAND PAINT MIXER 08/18/2019 Nicotine dependence, unspeci fied, uncomplicated Medical Established Patient with Maty Madoyle HAND PAINT MIXER 08/18/2019 Obesity due to excess calories Medical E stablished Patient with Maty Maag HAND PAINT MIXER 08/18/2019 Prediabetes Medical Established Patient with Maty Maag HAND PAINT MIXER 08/18/2019 Sleep disorder, unspecified Medical Esta blished Patient with Maty Maag HAND PAINT MIXER 08/18/2019 Acute laryngopharyngitis Medical Establi shed Patient with Cindy Oen HAND PAINT MIXER 07/13/2019 Acute pansinusitis unspecified Medical E stablished Patient with Cindy Oen HAND PAINT MIXER 07/13/2019 Body mass index Medical Established Patient with Cindy Oen HAND PAINT MIXER 07/13/2019 Obesity due to excess calories Medical E stablished Patient with Cindy Oen HAND PAINT MIXER 07/13/2019 Generalized anxiety disorder BH Establis hed Patient with Mimi Hueve POCKET CUTTER 01/06/2019 Moderate recurrent major depression BH E stablished Patient with Mimi Hueve POCKET CUTTER 01/06/2019 Anxiety disorder NOS Medical Established Patient with Cindy Oen HAND PAINT MIXER 01/06/2019 Anxiety disorder of unknown (axis III) etiology Medical Established Patient with Cindy Oen HAND PAINT MIXER 01/06/2019 Depression Medical Established Patient with Cindy Oen HAND PAINT MIXER 01/06/2019 Generalized anxiety disorder Medical Est ablished Patient with Cindy Oen HAND PAINT MIXER 01/06/2019 Adjustment disorder BH Established Patie nt with Leilani Tevin SQUIRESW-S 10/06/2018 Body mass index Medical Established Patient with Cindy Oen HAND PAINT MIXER 10/06/2018 Dast - 10 Score was 0 10/06/2018 Medical Established Patient with Cindy Oen HAND PAINT MIXER 10/06/2018 PHQ-9: total score was eight 10/06/2018 M edical Established Patient with Cindy Oen HAND PAINT MIXER 10/06/2018 Viral gastroenteritis (Eleva virus) Me dical Established Patient with Cindy Oen HAND PAINT MIXER 10/06/2018 Viral infection Medical Established Patient with Cindy Oen HAND PAINT MIXER 10/06/2018 swelling in [place]- seein g an ENT- trying to get shots for her allergies Medical Established Patient with Cindy Oen HAND PAINT MIXER 08/11/2018 Allergic rhinitis Medical Established Patient with Cindy Oen HAND PAINT MIXER 08/11/2018 Prehypertension Medical Established Patient with Cindy Oen HAND PAINT MIXER 08/11/2018 Acute pharyngitis Medical Established Patient with Cindy Oen HAND PAINT MIXER 07/22/2018 Assessment of cough Medical Established Patient with Cindy Oen HAND PAINT MIXER 07/22/2018 Assessment of fever Medical Established Patient with Cindy Oen HAND PAINT MIXER 07/22/2018 Bronchiolitis infectious Medical Establi shed Patient with Cindy Oen HAND PAINT MIXER 07/22/2018 Upper respiratory infection Medical Esta blished Patient with Cindy Oen HAND PAINT MIXER 07/22/2018 Findings Encounter Date Bipolar disorder, current ep isode hypomanic Telemedicine with Maty Love HAND PAINT MIXER 11/27/2019 Body mass index Telemedicine with Maty Love C EQUIPMENT CLEANER 11/27/2019 Chronic sinusitis, unspecified Telemedicine with Maty Love HAND PAINT MIXER 11/27/2019 Nicotine dependence, unspeci fied, uncomplicated Telemedicine with Maty Love HAND PAINT MIXER 11/27/2019 Obesity due to excess calories Telemedicine with Maty Love HAND PAINT MIXER 11/27/2019 Fibromyalgia Telemedicine with Matycara Love C EQUIPMENT CLEANER 09/28/2019 Generalized anxiety disorder Telemedicine with M ovidio Love HAND PAINT MIXER 09/28/2019 Major depressive disorder, r ecurrent, moderate Telemedicine with Maty Love HAND PAINT MIXER 09/28/2019 Nicotine dependence, cigaret leonel, uncomplicated Telemedicine with Maty Maag HAND PAINT MIXER 09/28/2019 Generalized anxiety disorder Establis hed Patient with Mimi Hueve POCKET CUTTER 08/18/2019 Mild recurrent major depression Estab lished Patient with Mimi Hueve POCKET CUTTER 08/18/2019 Nicotine dependence uncomplicated BH Est ablished Patient with Mimi Hueve POCKET CUTTER 08/18/2019 Allergy, unspecified, initial encounter Medical Established Patient with Maty Love HAND PAINT MIXER 08/18/2019 Body mass index (BMI) 38.0-38.9, adult M edical Established Patient with Maty Love HAND PAINT MIXER 08/18/2019 Chronic obstructive pulmonar y disease, unspecified Medical Established Patient with Maty Love HAND PAINT MIXER 08/18/2019 Chronic pain syndrome Medical Establishe d Patient with Maty Madoyle HAND PAINT MIXER 08/18/2019 Diabetes Risk Test Score was five score 08/18/2019 Medical Established Patient with Maty Maag HAND PAINT MIXER 08/18/2019 Fibromyalgia Medical Established Patient with Maty Maag HAND PAINT MIXER 08/18/2019 Generalized anxiety disorder Medical Est ablished Patient with Maty Maag HAND PAINT MIXER 08/18/2019 Major depressive disorder, r ecurrent, moderate Medical Established Patient with Maty Maag HAND PAINT MIXER 08/18/2019 Nicotine dependence, unspeci fied, uncomplicated Medical Established Patient with Maty Maag HAND PAINT MIXER 08/18/2019 Obesity due to excess calories Medical E stablished Patient with Maty Maag HAND PAINT MIXER 08/18/2019 Prediabetes Medical Established Patient with Maty Maag HAND PAINT MIXER 08/18/2019 Sleep disorder, unspecified Medical Esta blished Patient with Maty Love HAND PAINT MIXER 08/18/2019 Acute laryngopharyngitis Medical Establi shed Patient with Cindy Oen HAND PAINT MIXER 07/13/2019 Acute pansinusitis unspecified Medical E stablished Patient with Cindy Oen HAND PAINT MIXER 07/13/2019 Body mass index Medical Established Patient with Cindy Oen HAND PAINT MIXER 07/13/2019 Obesity due to excess calories Medical E stablished Patient with Cindy Oen HAND PAINT MIXER 07/13/2019 Generalized anxiety disorder BH Establis hed Patient with Mimi Santiagoe POCKET CUTTER 01/06/2019 Moderate recurrent major depression BH E stablished Patient with Mimi Hueve POCKET CUTTER 01/06/2019 Anxiety disorder NOS Medical Established Patient with Cindy Oen HAND PAINT MIXER 01/06/2019 Anxiety disorder of unknown (axis III) etiology Medical Established Patient with Cindy Oen HAND PAINT MIXER 01/06/2019 Depression Medical Established Patient with Cindy Oen HAND PAINT MIXER 01/06/2019 Generalized anxiety disorder Medical Est ablished Patient with Cindy Oen HAND PAINT MIXER 01/06/2019 Adjustment disorder BH Established Patie nt with Leilani ESCOBAR-S 10/06/2018 Body mass index Medical Established Patient with Cindy Oen HAND PAINT MIXER 10/06/2018 Dast - 10 Score was 0 10/06/2018 Medical Established Patient with Cindy Oen HAND PAINT MIXER 10/06/2018 PHQ-9: total score was eight 10/06/2018 M edical Established Patient with Cindy Oen HAND PAINT MIXER 10/06/2018 Viral gastroenteritis (Eleva virus) Me dical Established Patient with Cindy Oen HAND PAINT MIXER 10/06/2018 Viral infection Medical Established Patient with Cindy Oen HAND PAINT MIXER 10/06/2018 swelling in [place]- seein g an ENT- trying to get shots for her allergies Medical Established Patient with Cindy Oen HAND PAINT MIXER 08/11/2018 Allergic rhinitis Medical Established Patient with Cindy Oen HAND PAINT MIXER 08/11/2018 Prehypertension Medical Established Patient with Cindy Oen HAND PAINT MIXER 08/11/2018 Acute pharyngitis Medical Established Patient with Cindy Oen HAND PAINT MIXER 07/22/2018 Assessment of cough Medical Established Patient with Cindy Oen HAND PAINT MIXER 07/22/2018 Assessment of fever Medical Established Patient with Cindy Oen HAND PAINT MIXER 07/22/2018 Bronchiolitis infectious Medical Establi shed Patient with Cindy Oen HAND PAINT MIXER 07/22/2018 Upper respiratory infection Medical Esta blished Patient with Cindy Lopes HAND PAINT MIXER 07/22/2018 Findings Encounter Date B07.9 - Viral wart, unspecified Medical Established Patient with Noemi Givens HAND PAINT MIXER 01/23/2020 Epidermal inclusion cyst Medical Establi shed Patient with Noemi Givens HAND PAINT MIXER 01/23/2020 L82.1 - Other seborrheic keratosis Medic al Established Patient with Noemi Givens HAND PAINT MIXER 01/23/2020 Obesity due to excess calories Medical E stablished Patient with Noemi Givens HAND PAINT MIXER 01/23/2020 Z68.39 - Body mass index (BM I) 39.0-39.9, adult Medical Established Patient with Noemi Givens HAND PAINT MIXER 01/23/2020 Bipolar disorder, current ep isode hypomanic Telemedicine with Maty Chandlerdoyle QUEEN 11/27/2019 Body mass index Telemedicine with Maty Gonzalez EQUIPMENT CLEANER 11/27/2019 Chronic sinusitis, unspecified Telemedicine with Maty Chandlerdoyle HAND PAINT MIXER 11/27/2019 Nicotine dependence, unspeci fied, uncomplicated Telemedicine with Maty Chandlerdoyle QUEEN 11/27/2019 Obesity due to excess calories Telemedicine with Maty Ivan QUEEN 11/27/2019 Fibromyalgia Telemedicine with Maty Love C EQUIPMENT CLEANER 09/28/2019 Generalized anxiety disorder Telemedicine with Deandre Love HAND PAINT MIXER 09/28/2019 Major depressive disorder, r ecurrent, moderate Telemedicine with Maty Madoyle HAND PAINT MIXER 09/28/2019 Nicotine dependence, cigaret leonel, uncomplicated Telemedicine with Maty Madoyle HAND PAINT MIXER 09/28/2019 Generalized anxiety disorder BH Establis hed Patient with Mimi Hupetere POCKET CUTTER 08/18/2019 Mild recurrent major depression BH Estab lished Patient with Mimi Hueve POCKET CUTTER 08/18/2019 Nicotine dependence uncomplicated BH Est ablished Patient with Mimi Hueve POCKET CUTTER 08/18/2019 Allergy, unspecified, initial encounter Medical Established Patient with Maty Love HAND PAINT MIXER 08/18/2019 Body mass index (BMI) 38.0-38.9, adult M edical Established Patient with Maty Maag HAND PAINT MIXER 08/18/2019 Chronic obstructive pulmonar y disease, unspecified Medical Established Patient with Maty Maag HAND PAINT MIXER 08/18/2019 Chronic pain syndrome Medical Establishe d Patient with Maty Maag HAND PAINT MIXER 08/18/2019 Diabetes Risk Test Score was five score 08/18/2019 Medical Established Patient with Maty Maag HAND PAINT MIXER 08/18/2019 Fibromyalgia Medical Established Patient with Maty Maag HAND PAINT MIXER 08/18/2019 Generalized anxiety disorder Medical Est ablished Patient with Maty Love HAND PAINT MIXER 08/18/2019 Major depressive disorder, r ecurrent, moderate Medical Established Patient with Maty Love HAND PAINT MIXER 08/18/2019 Nicotine dependence, unspeci fied, uncomplicated Medical Established Patient with Maty Love HAND PAINT MIXER 08/18/2019 Obesity due to excess calories Medical E stablished Patient with Maty Love HAND PAINT MIXER 08/18/2019 Prediabetes Medical Established Patient with Maty Love HAND PAINT MIXER 08/18/2019 Sleep disorder, unspecified Medical Esta blished Patient with Maty Love HAND PAINT MIXER 08/18/2019 Acute laryngopharyngitis Medical Establi shed Patient with Cindy Alexandran HAND PAINT MIXER 07/13/2019 Acute pansinusitis unspecified Medical E stablished Patient with Cindy Oen HAND PAINT MIXER 07/13/2019 Body mass index Medical Established Patient with Cindy Oen HAND PAINT MIXER 07/13/2019 Obesity due to excess calories Medical E stablished Patient with Cindy Oen HAND PAINT MIXER 07/13/2019 Generalized anxiety disorder BH Establis hed Patient with Mimi Hueve POCKET CUTTER 01/06/2019 Moderate recurrent major depression BH E stablished Patient with Mimi Hueve POCKET CUTTER 01/06/2019 Anxiety disorder NOS Medical Established Patient with Cindy Oen HAND PAINT MIXER 01/06/2019 Anxiety disorder of unknown (axis III) etiology Medical Established Patient with Cindy Oen HAND PAINT MIXER 01/06/2019 Depression Medical Established Patient with Cindy Oen HAND PAINT MIXER 01/06/2019 Generalized anxiety disorder Medical Est ablished Patient with Cindy Oen HAND PAINT MIXER 01/06/2019 Adjustment disorder Established Patie nt with Leilani ESCOBAR-S 10/06/2018 Body mass index Medical Established Patient with Cindy Oen HAND PAINT MIXER 10/06/2018 Dast - 10 Score was 0 10/06/2018 Medical Established Patient with Cindy Oen HAND PAINT MIXER 10/06/2018 PHQ-9: total score was eight 10/06/2018 M edical Established Patient with Cindy Oen HAND PAINT MIXER 10/06/2018 Viral gastroenteritis (Eleva virus) Me dical Established Patient with Cindy Oen HAND PAINT MIXER 10/06/2018 Viral infection Medical Established Patient with Cindy Oen HAND PAINT MIXER 10/06/2018 swelling in [place]- seein g an ENT- trying to get shots for her allergies Medical Established Patient with Cindy Oen HAND PAINT MIXER 08/11/2018 Allergic rhinitis Medical Established Patient with Cindy Oen HAND PAINT MIXER 08/11/2018 Prehypertension Medical Established Patient with Cindy Oen HAND PAINT MIXER 08/11/2018 Acute pharyngitis Medical Established Patient with Cindy Oen HAND PAINT MIXER 07/22/2018 Assessment of cough Medical Established Patient with Cindy Oen HAND PAINT MIXER 07/22/2018 Assessment of fever Medical Established Patient with Cindy Oen HAND PAINT MIXER 07/22/2018 Bronchiolitis infectious Medical Establi shed Patient with Cindy Oen HAND PAINT MIXER 07/22/2018 Upper respiratory infection Medical Esta blished Patient with Cindy Oen HAND PAINT MIXER 07/22/2018 Findings Encounter Date Generalized anxiety disorder Telebeha vioral Health with Mimipaty Santiagoe POCKET CUTTER 03/05/2020 Moderate recurrent major depression T elebehavioral Health with Mimipaty Santiagoe POCKET CUTTER 03/05/2020 Nicotine dependence uncomplicated Tel ebehavioral Health with Mimipaty Santiagoe POCKET CUTTER 03/05/2020 Chronic sinusitis, unspecified Telemedic ine Establisted Patient with Maty Love HAND PAINT MIXER 03/05/2020 Magnesium deficiency Telemedicine Establ isted Patient with Maty Love HAND PAINT MIXER 03/05/2020 Nicotine dependence, unspeci fied, uncomplicated Telemedicine Establisted Patient with Maty Love HAND PAINT MIXER 03/05/2020 Vitamin D deficiency, unspecified Teleme dicine Establisted Patient with Maty Love HAND PAINT MIXER 03/05/2020 B07.9 - Viral wart, unspecified Medical Established Patient with Noemi Chon HAND PAINT MIXER 01/23/2020 Epidermal inclusion cyst Medical Establi shed Patient with Noemi Givens HAND PAINT MIXER 01/23/2020 L82.1 - Other seborrheic keratosis Medic al Established Patient with Noemi Chon HAND PAINT MIXER 01/23/2020 Obesity due to excess calories Medical E stablished Patient with Noemi Chon HAND PAINT MIXER 01/23/2020 Z68.39 - Body mass index (BM I) 39.0-39.9, adult Medical Established Patient with Noemi Chon HAND PAINT MIXER 01/23/2020 Bipolar disorder, current ep isode hypomanic Telemedicine with Maty Chandlerdoyle HAND PAINT MIXER 11/27/2019 Body mass index Telemedicine with Maty Ivan C EQUIPMENT CLEANER 11/27/2019 Chronic sinusitis, unspecified Telemedicine with Maty Chandlerdoyle HAND PAINT MIXER 11/27/2019 Nicotine dependence, unspeci fied, uncomplicated Telemedicine with Maty Chandlerdoyle HAND PAINT MIXER 11/27/2019 Obesity due to excess calories Telemedicine with Maty Love HAND PAINT MIXER 11/27/2019 Fibromyalgia Telemedicine with Maty Love C EQUIPMENT CLEANER 09/28/2019 Generalized anxiety disorder Telemedicine with Deandre Love HAND PAINT MIXER 09/28/2019 Major depressive disorder, r ecurrent, moderate Telemedicine with Maty Love HAND PAINT MIXER 09/28/2019 Nicotine dependence, cigaret leonel, uncomplicated Telemedicine with Maty Love HAND PAINT MIXER 09/28/2019 Generalized anxiety disorder BH Establis hed Patient with Mimi Hueve POCKET CUTTER 08/18/2019 Mild recurrent major depression BH Estab lished Patient with Mimi Hueve POCKET CUTTER 08/18/2019 Nicotine dependence uncomplicated BH Est ablished Patient with Mimi Hueve POCKET CUTTER 08/18/2019 Allergy, unspecified, initial encounter Medical Established Patient with Maty Love HAND PAINT MIXER 08/18/2019 Body mass index (BMI) 38.0-38.9, adult M edical Established Patient with Maty Love HAND PAINT MIXER 08/18/2019 Chronic obstructive pulmonar y disease, unspecified Medical Established Patient with Maty Love HAND PAINT MIXER 08/18/2019 Chronic pain syndrome Medical Establishe d Patient with Maty Love HAND PAINT MIXER 08/18/2019 Diabetes Risk Test Score was five score 08/18/2019 Medical Established Patient with Maty Love HAND PAINT MIXER 08/18/2019 Fibromyalgia Medical Established Patient with Maty Love HAND PAINT MIXER 08/18/2019 Generalized anxiety disorder Medical Est ablished Patient with Maty Love HAND PAINT MIXER 08/18/2019 Major depressive disorder, r ecurrent, moderate Medical Established Patient with Maty Love HAND PAINT MIXER 08/18/2019 Nicotine dependence, unspeci fied, uncomplicated Medical Established Patient with aMty Love HAND PAINT MIXER 08/18/2019 Obesity due to excess calories Medical E stablished Patient with Maty Maag HAND PAINT MIXER 08/18/2019 Prediabetes Medical Established Patient with Maty Maag HAND PAINT MIXER 08/18/2019 Sleep disorder, unspecified Medical Esta blished Patient with Maty Maag HAND PAINT MIXER 08/18/2019 Acute laryngopharyngitis Medical Establi shed Patient with Cindy Oen HAND PAINT MIXER 07/13/2019 Acute pansinusitis unspecified Medical E stablished Patient with Cindy Oen HAND PAINT MIXER 07/13/2019 Body mass index Medical Established Patient with Cindy Oen HAND PAINT MIXER 07/13/2019 Obesity due to excess calories Medical E stablished Patient with Cindy Oen HAND PAINT MIXER 07/13/2019 Generalized anxiety disorder BH Establis hed Patient with Mimi Hueve POCKET CUTTER 01/06/2019 Moderate recurrent major depression BH E stablished Patient with Mimi Hueve POCKET CUTTER 01/06/2019 Anxiety disorder NOS Medical Established Patient with Cindy Oen HAND PAINT MIXER 01/06/2019 Anxiety disorder of unknown (axis III) etiology Medical Established Patient with Cindy Oen HAND PAINT MIXER 01/06/2019 Depression Medical Established Patient with Cindy Oen HAND PAINT MIXER 01/06/2019 Generalized anxiety disorder Medical Est ablished Patient with Cindy Oen HAND PAINT MIXER 01/06/2019 Adjustment disorder Established Patie nt with Leilani Abarca POCKET CUTTER-S 10/06/2018 Body mass index Medical Established Patient with Cindy Oen HAND PAINT MIXER 10/06/2018 Dast - 10 Score was 0 10/06/2018 Medical Established Patient with Cindy Oen HAND PAINT MIXER 10/06/2018 PHQ-9: total score was eight 10/06/2018 M edical Established Patient with Cindy Oen HAND PAINT MIXER 10/06/2018 Viral gastroenteritis (Eleva virus) Me dical Established Patient with Cindy Oen HAND PAINT MIXER 10/06/2018 Viral infection Medical Established Patient with Cindy Oen HAND PAINT MIXER 10/06/2018 swelling in [place]- seein g an ENT- trying to get shots for her allergies Medical Established Patient with Cindy Oen HAND PAINT MIXER 08/11/2018 Allergic rhinitis Medical Established Patient with Cindy Oen HAND PAINT MIXER 08/11/2018 Prehypertension Medical Established Patient with Cindy Oen HAND PAINT MIXER 08/11/2018 Acute pharyngitis Medical Established Patient with Cindy Oen HAND PAINT MIXER 07/22/2018 Assessment of cough Medical Established Patient with Cindy Oen HAND PAINT MIXER 07/22/2018 Assessment of fever Medical Established Patient with Cindy Oen HAND PAINT MIXER 07/22/2018 Bronchiolitis infectious Medical Establi shed Patient with Cindy Oen HAND PAINT MIXER 07/22/2018 Upper respiratory infection Medical Esta blished Patient with Cindy Oen HAND PAINT MIXER 07/22/2018 Findings Encounter Date Encounter for Immunization 1st COVID Vac cine with Xi Roberson PharmD 08/27/2020 Generalized anxiety disorder Telebeha vioral Health with Mimi Chidieve POCKET CUTTER 03/05/2020 Moderate recurrent major depression T elebehavioral Health with Mimi Santiagoe POCKET CUTTER 03/05/2020 Nicotine dependence uncomplicated Tel ebehavioral Health with Mimi Hueve [employer] 03/05/2020 Chronic sinusitis, unspecified [facility] Magnesium deficiency [facility] Nicotine dependence, unspeci fied, uncomplicated Telemedicine Establisted Patient with Maty [facility] 03/05/2020 Vitamin D deficiency, unspecified Teleme dicine Establisted Patient with Maty [facility] 03/05/2020 B07.9 - Viral wart, unspecified Medical Established Patient with Noemi [facility] 01/23/2020 Epidermal inclusion cyst Medical Establi shed Patient with Noemi [facility] 01/23/2020 L82.1 - Other seborrheic keratosis Medic al Established Patient with Noemi [facility] 01/23/2020 Obesity due to excess calories Medical E stablished Patient with Noemi [facility] 01/23/2020 Z68.39 - Body mass index (BM I) 39.0-39.9, adult Medical Established Patient with Noemi [facility] 01/23/2020 Bipolar disorder, current ep isode hypomanic Telemedicine with [facility] 11/27/2019 [facility]27[facility]2019 Chronic sinusitis, unspecified Telemedicine with [facility] 11/27/2019 Nicotine dependence, unspeci fied, uncomplicated Telemedicine with [facility] 11/27/2019 Obesity due to excess calories Telemedicine with [facility] 11/27/2019 Fibromyalgia Telemedicine with Maty Ma Carlos [employer] 09/28/2019 Generalized anxiety disorder Telemedicine with Deandre nolan [facility] 09/28/2019 Major depressive disorder, r ecurrent, moderate Telemedicine with Maty [facility] 09/28/2019 Nicotine dependence, cigaret leonel, uncomplicated Telemedicine with [facility] 09/28/2019 Generalized anxiety disorder BH Establis hed Patient with Mimi Hupetere P[employer] C[employer] 08/18/2019 Mild recurrent major depression BH Estab lished Patient with Mimi Hueve P[employer] C[employer] 08/18/2019 Nicotine dependence uncomplicated BH Est ablished Patient with Mimi Hueve P[employer] C[employer] 08/18/2019 Allergy, unspecified, initial encounter [facility] Body mass index (BMI) 38.0-38.9, adult M edical [facility] Chronic obstructive pulmonar y disease, unspecified Medical Established Patient with Maty Love [employer] M[employer] 08/18/2019 Chronic pain syndrome Medical Establishe d Patient with Maty Love [employer] M[employer] 08/18/2019 Diabetes Risk Test Score was five score 08/18/2019 Medical Established Patient with Maty Love [employer] 08/18/2019 Fibromyalgia Medical Established Patient with Maty Love [employer] 08/18/2019 Generalized anxiety disorder Medical Est ablished Patient with Maty Love [employer] 08/18/2019 Major depressive disorder, r ecurrent, moderate Medical Established Patient with Maty Love [employer] 08/18/2019 Nicotine dependence, unspeci fied, uncomplicated Medical Established Patient with Maty Love [employer] 08/18/2019 Obesity due to excess calories Medical E stablished Patient with Maty Love [employer] 08/18/2019 Prediabetes Medical Established Patient with Maty Love [employer] 08/18/2019 Sleep disorder, unspecified Medical Esta blished Patient with Maty Love [employer] M[employer] 08/18/2019 Acute laryngopharyngitis Medical Establi shed Patient with Cindy Alexandran [employer] PA[employer] M[employer] 07/13/2019 Acute pansinusitis unspecified Medical E stablished Patient with Cindy Oen [employer] PA[employer] M[employer]ER 07/13/2019 Body mass index Medical Established Patient with Cindy Oen [employer] PA[employer] M[employer] 07/13/2019 Obesity due to excess calories Medical E stablished Patient with Cindy Oen [employer] M[employer] 07/13/2019 Generalized anxiety disorder BH Establis hed Patient with Mimi Hupetere [employer] C[employer] 01/06/2019 Moderate recurrent major depression BH E stablished Patient with Mimi Hueve [employer] C[employer] 01/06/2019 Anxiety disorder NOS Medical Established Patient with Cindy Oen [employer] 01/06/2019 Anxiety disorder of unknown (axis III) etiology Medical Established Patient with Cindy Oen [employer] 01/06/2019 Depression Medical Established Patient with Cindy Oen [employer] 01/06/2019 Generalized anxiety disorder Medical Est ablished Patient with Cindy Oen [employer] M[employer] 01/06/2019 Adjustment disorder BH Established Patie nt with Leilani ESCOBAR-S 10/06/2018 Body mass index Medical Established Patient with Cindy Oen [employer] M[employer] 10/06/2018 Dast - 10 Score was 0 10/06/2018 Medical Established Patient with Cindy Oen [employer] M[employer] 10/06/2018 PHQ-9: total score was eight 10/06/2018 M edical Established Patient with Cindy Oen [employer] M[employer] 10/06/2018 Viral gastroenteritis (Eleva virus) Me dical Established Patient with Cindy Alexandran [employer] PA[employer] M[employer] 10/06/2018 Viral infection Medical Established Patient with Cindy Alexandran [employer] PA[employer] M[employer] 10/06/2018 swelling in veneculla- seein g an ENT- trying to get shots for her allergies Medical Established Patient with Cindy Oen [employer] 08/11/2018 Allergic rhinitis Medical Established Patient with Cindy Oen [employer] 08/11/2018 Prehypertension Medical Established Patient with Cindy Oen [employer] 08/11/2018 Acute pharyngitis Medical Established Patient with Cindy Oen [employer] 07/22/2018 Assessment of cough Medical Established Patient with Cindy Oen [employer] 07/22/2018 Assessment of fever Medical Established Patient with Cindy Oen [employer] 07/22/2018 Bronchiolitis infectious Medical Establi shed Patient with Cindy Oen [employer] 07/22/2018 Upper respiratory infection Medical Esta blished Patient with Cindy Oen [employer] 07/22/2018 Findings Encounter Date Exposure to a viral disease Telemedicine New Patient with Ro Austin [employer] 09/07/2020 Encounter for Immunization 1st COVID Vac cine with Xi Roberson PharmD 08/27/2020 Generalized [facility] 03/05/2020 Moderate recurrent major depression [facility] 03/05/2020 Nicotine dependence [facility]complicated [facility] 03/05/2020 Chronic sinusitis, unspecified Telemedic ine Establisted Patient with Maty Love [employer] M[employer] 03/05/2020 Magnesium deficiency Telemedicine Establ isted Patient with Maty Love [employer] M[employer] 03/05/2020 Nicotine dependence, unspeci fied, uncomplicated Telemedicine Establisted Patient with Maty Love [employer] M[employer] 03/05/2020 Vitamin D deficiency, unspecified Teleme dicine Establisted Patient with Maty Love [facility] 03/05/2020 B07.9 - Viral wart, unspecified Medical Established Patient with Noemi Chon [employer] 01/23/2020 Epidermal inclusion cyst Medical Establi shed Patient with Noemi Chon [employer] 01/23/2020 L82.1 - Other seborrheic keratosis Medic al Established Patient with Noemi Chon [employer] 01/23/2020 Obesity due to excess calories Medical E stablished Patient with Noemi Chon [employer] 01/23/2020 Z68.39 - Body mass index (BM I) 39.0-39.9, adult Medical Established Patient with Noemi Givens [employer] 01/23/2020 Bipolar disorder, current ep isode hypomanic Telemedicine with Maty Love [employer] M[employer] 11/27/2019 Body mass index Telemedicine with Maty Love C [employer] CLE[employer] 11/27/2019 Chronic sinusitis, unspecified Telemedicine with Maty Love [employer] 11/27/2019 Nicotine dependence, unspeci fied, uncomplicated Telemedicine with Maty Love [employer] 11/27/2019 Obesity due to excess calories Telemedicine with Maty Love [employer] 11/27/2019 Fibromyalgia Telemedicine with Maty Love C [employer] 09/28/2019 Generalized anxiety disorder Telemedicine with Deandre Love [employer] 09/28/2019 Major depressive disorder, r ecurrent, moderate Telemedicine with Maty Love [employer] 09/28/2019 Nicotine dependence, cigaret leonel, uncomplicated Telemedicine with Maty Love [employer] 09/28/2019 Generalized anxiety disorder Establis hed Patient with Mimi Santiagoe P[employer] C[employer] 08/18/2019 Mild recurrent major depression Estab lished Patient with Mimipaty Santiagoe P[employer] C[employer]TER 08/18/2019 Nicotine dependence uncomplicated BH Est ablished Patient with Mimi Murilloeve POCKET CUTTER 08/18/2019 Allergy, unspecified, initial encounter Medical Established Patient with Maty Love [facility] 08/18/2019 Body mass index (BMI) 38.0-38.9, adult M edical Established Patient with Maty Love [facility] 08/18/2019 Chronic obstructive pulmonar y disease, unspecified Medical Established Patient with Maty Love [facility] 08/18/2019 Chronic pain syndrome Medical Establishe d Patient with Maty Love [facility] 08/18/2019 Diabetes Risk Test Score was five score 08/18/2019 Medical Established Patient with Maty Love [employer] 08/18/2019 Fibromyalgia Medical Established Patient with Maty Love [facility] 08/18/2019 Generalized anxiety disorder Medical Est ablished Patient with Maty Love [employer] 08/18/2019 Major depressive disorder, r ecurrent, moderate Medical Established Patient with Maty Love [employer] 08/18/2019 Nicotine dependence, unspeci fied, uncomplicated Medical Established Patient with Maty Love [employer] 08/18/2019 Obesity due to excess calories Medical E stablished Patient with Maty Love [employer] 08/18/2019 Prediabetes Medical Established Patient with Maty Love [employer] 08/18/2019 Sleep disorder, unspecified Medical Esta blished Patient with Maty Chandlerag [employer] PAINT M[employer]ER 08/18/2019 Acute laryngopharyngitis Medical Establi shed Patient with Cindy Oen [employer] PA[employer] 07/13/2019 Acute pansinusitis unspecified Medical E stablished Patient with Cindy Oen [employer] 07/13/2019 Body mass index Medical Established Patient with Cindy Oen [employer] 07/13/2019 Obesity due to excess calories Medical E stablished Patient with Cindy Oen [employer] 07/13/2019 Generalized anxiety disorder BH Establis hed Patient with Mimi Santiagoe [employer] 01/06/2019 Moderate recurrent major depression BH E stablished Patient with Mimi Hueve POCK[employer] C[employer]TER 01/06/2019 Anxiety disorder NOS Medical Established Patient with Cindy Oen [employer] 01/06/2019 Anxiety disorder of unknown (axis III) etiology Medical Established Patient with Cindy Oen [employer] 01/06/2019 Depression Medical Established Patient with Cindy Oen [employer] 01/06/2019 Generalized anxiety disorder Medical Est ablished Patient with Cindy Oen [employer] 01/06/2019 Adjustment disorder BH Established Patie nt with Leilani ESCOBAR-S 10/06/2018 Body mass index Medical Established Patient with Cindy Oen [employer] M[employer] 10/06/2018 Dast - 10 Score was 0 10/06/2018 Medical Established Patient with Cindy Oen [employer] M[employer] 10/06/2018 PHQ-9: total score was eight 10/06/2018 M edical Established Patient with Cindy Oen [employer] 10/06/2018 Viral gastroenteritis (Eleva virus) Me dical Established Patient with Cindy Oen [employer] 10/06/2018 Viral infection Medical Established Patient with Cindy Oen [employer] M[employer] 10/06/2018 swelling in [place]- seein g an ENT- trying to get shots for her allergies Medical Established Patient with Cindy Oen [employer] 08/11/2018 Allergic rhinitis Medical Established Patient with Cindy Oen [employer] 08/11/2018 Prehypertension Medical Established Patient with Cindy Oen [employer] 08/11/2018 Acute pharyngitis Medical Established Patient with Cindy Oen [employer] 07/22/2018 Assessment of cough Medical Established Patient with Cindy Oen [employer] 07/22/2018 Assessment of fever Medical Established Patient with Cindy Oen [employer] 07/22/2018 Bronchiolitis infectious Medical Establi shed Patient with Cindy Oen [employer] 07/22/2018 Upper respiratory infection Medical Esta blished Patient with Cindy Lopes [employer] PA[employer] M[employer] 07/22/2018 Findings Encounter Date Generalized anxiety disorder Telebeha vioral Health with Mimi Hupetere P[employer] C[employer]TER 03/05/2020 Moderate recurrent major depression T elebehavioral Health with Mimi Hueve POCKET C[employer]TER 03/05/2020 Nicotine dependence uncomplicated Tel ebehavioral Health with Mimipaty Santiagoe P[employer] C[employer]TER 03/05/2020 B07.9 - Viral wart, unspecified Medical Established Patient with Noemi Chon [employer] 01/23/2020 Epidermal inclusion cyst Medical Establi shed Patient with Noemi Chon [employer] 01/23/2020 L82.1 - Other seborrheic keratosis Medic al Established Patient with Noemi Chon [employer] 01/23/2020 Obesity due to excess calories Medical E stablished Patient with Noemi Chon [employer] 01/23/2020 Z68.39 - Body mass index (BM I) 39.0-39.9, adult Medical Established Patient with Noemi Chon [employer] 01/23/2020 Bipolar disorder, current ep isode hypomanic Telemedicine with Maty Love [employer] 11/27/2019 Body mass index Telemedicine with Maty Love C [employer]IPMENT [employer] 11/27/2019 Chronic sinusitis, unspecified Telemedicine with Maty Ivan [employer] 11/27/2019 Nicotine dependence, unspeci fied, uncomplicated Telemedicine with Maty Ivan [employer] 11/27/2019 Obesity due to excess calories Telemedicine with Maty Love [employer] 11/27/2019 Fibromyalgia Telemedicine with Maty Gonzalez [employer] CLE[employer]ER 09/28/2019 Generalized anxiety disorder Telemedicine with Deandre Love [employer] 09/28/2019 Major depressive disorder, r ecurrent, moderate Telemedicine with Maty Madoyle [employer] 09/28/2019 Nicotine dependence, cigaret leonel, uncomplicated Telemedicine with Maty Madoyle [employer] 09/28/2019 Generalized anxiety disorder Establis hed Patient with Mimi Hupetere P[employer] CUTTER 08/18/2019 Mild recurrent major depression Estab lished Patient with Mimi Hupetere [employer]OCK[employer] C[employer]TER 08/18/2019 Nicotine dependence uncomplicated BH Est ablished Patient with Mimi Hueve POCK[employer] C[employer] 08/18/2019 Allergy, unspecified, initial encounter Medical Established Patient with Maty Madoyle [employer] 08/18/2019 Body mass index (BMI) 38.0-38.9, adult M edical Established Patient with Maty Madoyle [employer] M[employer] 08/18/2019 Chronic obstructive pulmonar y disease, unspecified Medical Established Patient with Maty Love [employer] PA[employer] M[employer] 08/18/2019 Chronic pain syndrome Medical Establishe d Patient with Maty Love [employer] 08/18/2019 Diabetes Risk Test Score was five score 08/18/2019 Medical Established Patient with Maty Love [employer] 08/18/2019 Fibromyalgia Medical Established Patient with Maty Love [employer] 08/18/2019 Generalized anxiety disorder Medical Est ablished Patient with Maty Love [employer] 08/18/2019 Major depressive disorder, r ecurrent, moderate Medical Established Patient with Maty Love [employer] 08/18/2019 Nicotine dependence, unspeci fied, uncomplicated Medical Established Patient with Maty Love [employer] 08/18/2019 Obesity due to excess calories Medical E stablished Patient with Maty Love [employer] 08/18/2019 Prediabetes Medical Established Patient with Maty Love [employer] 08/18/2019 Sleep disorder, unspecified Medical Esta blished Patient with Maty Love [employer] 08/18/2019 Acute laryngopharyngitis Medical Establi shed Patient with Cindy Alexandran [employer] PA[employer] 07/13/2019 Acute pansinusitis unspecified Medical E stablished Patient with Cindy Oen [employer] PA[employer] M[employer] 07/13/2019 Body mass index Medical Established Patient with Cindy Oen [employer] 07/13/2019 Obesity due to excess calories Medical E stablished Patient with Cindy Oen [employer] 07/13/2019 Generalized anxiety disorder BH Establis hed Patient with Mimi Santiagoe P[employer] C[employer] 01/06/2019 Moderate recurrent major depression BH E stablished Patient with Mimi Hueve POCK[employer] C[employer] 01/06/2019 Anxiety disorder NOS Medical Established Patient with Cindy Oen [employer] 01/06/2019 Anxiety disorder of unknown (axis III) etiology Medical Established Patient with Cindy Oen [employer] 01/06/2019 Depression Medical Established Patient with Cindy Oen [employer] 01/06/2019 Generalized anxiety disorder Medical Est ablished Patient with Cindy Oen [employer] PA[employer] M[employer] 01/06/2019 Adjustment disorder BH Established Patie nt with Leilani PAVONS 10/06/2018 Body mass index Medical Established Patient with Cindy Oen [employer] PA[employer] M[employer] 10/06/2018 Dast - 10 Score was 0 10/06/2018 Medical Established Patient with Cindy Oen [employer] PA[employer] M[employer] 10/06/2018 PHQ-9: total score was eight 10/06/2018 M edical Established Patient with Cindy Oen [employer] M[employer] 10/06/2018 Viral gastroenteritis (Eleva virus) Me dical Established Patient with Cindy Oen [employer] M[employer] 10/06/2018 Viral infection Medical Established Patient with Cindy Oen [employer] PA[employer] M[employer] 10/06/2018 swelling in [place]- seein g an ENT- trying to get shots for her allergies Medical Established Patient with Cindy Oen [employer] M[employer] 08/11/2018 Allergic rhinitis Medical Established Patient with Cindy Oen [employer] M[employer] 08/11/2018 Prehypertension Medical Established Patient with Cindy Oen [employer] 08/11/2018 Acute pharyngitis Medical Established Patient with Cindy Oen [employer] 07/22/2018 Assessment of cough Medical Established Patient with Cindy Oen [employer] 07/22/2018 Assessment of fever Medical Established Patient with Cindy Oen [employer] 07/22/2018 Bronchiolitis infectious Medical Establi shed Patient with Cindy Oen [employer] 07/22/2018 Upper respiratory infection Medical Esta blished Patient with Cindy Oen [employer] 07/22/2018 Findings Encounter Date Dependence on nicotine in ci garettes - uncomplicated BH Established Patient with Mimi Hueve [employer] C[employer] 09/19/2020 Moderate recurrent major depression BH E stablished Patient with Mimi Hueve [employer] C[employer] 09/19/2020 Sleep disorder Established Patie nt with Mimi Hueve [employer] C[employer] 09/19/2020 Body mass index [BMI] 37.0-37.9, adult M edical Established Patient with Maty Maag [employer] 09/19/2020 Chronic pain Medical Established Patient with Maty Maag [employer] 09/19/2020 Dependence on nicotine in ci garettes - uncomplicated Medical Established Patient with Maty Maag [employer] 09/19/2020 Fibromyalgia Medical Established Patient with Maty Maag [employer] 09/19/2020 Generalized anxiety disorder Medical Est ablished Patient with Maty Maag [employer] 09/19/2020 Moderate recurrent major depression [place] Established Patient with Maty Maag [employer] 09/19/2020 Sleep disorder Medical Established Patient with Maty Maag [employer] 09/19/2020 Exposure to a viral disease Telemedicine New Patient with Ro Austin [employer] M[employer] 09/07/2020 Encounter for Immunization 1st COVID Vac cine with Xi Roberson PharmD 08/27/2020 Generalized anxiety disorder Telebeha vioral Health with Mimi ESCOBAR 03/05/2020 Moderate recurrent major depression BH T elebehavioral Health with Mimi Santiagoe POCK[employer] C[employer]TER 03/05/2020 Nicotine dependence uncomplicated Tel ebehavioral Health with Mimipaty Santiagoe P[employer] C[employer]TER 03/05/2020 Chronic sinusitis, unspecified Telemedic ine Establisted Patient with Maty Maag [employer] 03/05/2020 Magnesium deficiency Telemedicine Establ isted Patient with Maty Maag [employer] 03/05/2020 Nicotine dependence, unspeci fied, uncomplicated Telemedicine Establisted Patient with Maty Madoyle [employer] 03/05/2020 Vitamin D deficiency, unspecified Teleme dicine Establisted Patient with Maty Maag [employer] 03/05/2020 B07.9 - Viral wart, unspecified Medical Established Patient with Noemi Chon [employer] 01/23/2020 Epidermal inclusion cyst Medical Establi shed Patient with Noemi Chon [employer] 01/23/2020 L82.1 - Other seborrheic keratosis Medic al Established Patient with Noemi Chon [employer] 01/23/2020 Obesity due to excess calories Medical E stablished Patient with Noemi Chon [employer] 01/23/2020 Z68.39 - Body mass index (BM I) 39.0-39.9, adult Medical Established Patient with Noemi Chon [employer] 01/23/2020 Bipolar disorder, current ep isode hypomanic Telemedicine with Maty Love [employer] 11/27/2019 Body mass index Telemedicine with Maty Gonzalez NP 11/27/2019 Chronic sinusitis, unspecified Telemedicine with Maty Madoyle [employer] 11/27/2019 Nicotine dependence, unspeci fied, uncomplicated Telemedicine with Maty Madoyle [employer] 11/27/2019 Obesity due to excess calories Telemedicine with Maty Love CNP 11/27/2019 Fibromyalgia Telemedicine with Maty Gonzalez NP 09/28/2019 Generalized anxiety disorder Telemedicine with Deandre Love [employer] 09/28/2019 Major depressive disorder, r ecurrent, moderate Telemedicine with Maty Madoyle [employer] 09/28/2019 Nicotine dependence, cigaret leonel, uncomplicated Telemedicine with Maty Love [employer] 09/28/2019 Generalized anxiety disorder Establis hed Patient with Mimipaty Santiagoe P[employer] C[employer] 08/18/2019 Mild recurrent major depression Estab lished Patient with Mimi Hueve POCK[employer] C[employer] 08/18/2019 Nicotine dependence uncomplicated BH Est ablished Patient with Mimi Hueve [employer] C[employer] 08/18/2019 Allergy, unspecified, initial encounter Medical Established Patient with Matycara Love [facility] 08/18/2019 Body mass index (BMI) 38.0-38.9, adult M edical Established Patient with Maty Love [employer] 08/18/2019 Chronic obstructive pulmonar y disease, unspecified Medical Established Patient with Maty Love [employer] 08/18/2019 Chronic pain syndrome Medical Establishe d Patient with Maty Love [employer] 08/18/2019 Diabetes Risk Test Score was five score 08/18/2019 Medical Established Patient with Maty Love [employer] 08/18/2019 Fibromyalgia Medical Established Patient with Maty Love [employer] 08/18/2019 Generalized anxiety disorder Medical Est ablished Patient with Maty Love [facility] 08/18/2019 Major depressive disorder, r ecurrent, moderate Medical Established Patient with Maty Love [facility] 08/18/2019 Nicotine dependence, unspeci fied, uncomplicated Medical Established Patient with Maty Love [employer] 08/18/2019 Obesity due to excess calories Medical E stablished Patient with Maty Love [facility] 08/18/2019 Prediabetes Medical Established Patient with Maty Love [facility] 08/18/2019 Sleep disorder, unspecified Medical Esta blished Patient with Maty Love [facility] 08/18/2019 Acute laryngopharyngitis Medical Establi shed Patient with Cindy Alexandran [facility] 07/13/2019 Acute pansinusitis unspecified Medical E stablished Patient with Cindy Oen [employer] 07/13/2019 Body mass index Medical Established Patient with Cindy Oen [facility] 07/13/2019 Obesity due to excess calories Medical E stablished Patient with Cindy Oen [employer] 07/13/2019 Generalized anxiety disorder BH Establis hed Patient with Mimi Santiagoe [employer] 01/06/2019 Moderate recurrent major depression BH E stablished Patient with Mimi Hueve [employer] 01/06/2019 Anxiety disorder NOS Medical Established Patient with Cindy Oen [employer] 01/06/2019 Anxiety disorder of unknown (axis III) etiology Medical Established Patient with Cindy Oen [employer] 01/06/2019 Depression Medical Established Patient with Cindy Oen [employer] 01/06/2019 Generalized anxiety disorder Medical Est ablished Patient with Cindy Oen [employer] 01/06/2019 Adjustment disorder BH Established Patie nt with Leilani ESCOBAR-S 10/06/2018 Body mass index Medical Established Patient with Cindy Oen [employer] 10/06/2018 Dast - 10 Score was 0 10/06/2018 Medical Established Patient with Cindy Oen HAND PAINT MIXER 10/06/2018 PHQ-9: total score was eight 10/06/2018 M edical Established Patient with Cindy Oen HAND PAINT MIXER 10/06/2018 Viral gastroenteritis (Eleva virus) Me dical Established Patient with Cindy Oen HAND PAINT MIXER 10/06/2018 Viral infection Medical Established Patient with Cindy Oen HAND PAINT MIXER 10/06/2018 swelling in veneculla- seein g an ENT- trying to get shots for her allergies Medical Established Patient with Cindy Oen HAND PAINT MIXER 08/11/2018 Allergic rhinitis Medical Established Patient with Cindy Oen HAND PAINT MIXER 08/11/2018 Prehypertension Medical Established Patient with Cindy Oen HAND PAINT MIXER 08/11/2018 Acute pharyngitis Medical Established Patient with Cindy Oen HAND PAINT MIXER 07/22/2018 Assessment of cough Medical Established Patient with Cindy Oen HAND PAINT MIXER 07/22/2018 Assessment of fever Medical Established Patient with Cindy Oen HAND PAINT MIXER 07/22/2018 Bronchiolitis infectious Medical Establi shed Patient with Cindy Oen HAND PAINT MIXER 07/22/2018 Upper respiratory infection Medical Esta blished Patient with Cindy Oen HAND PAINT MIXER 07/22/2018 Findings Encounter Date Dependence on nicotine in ci garettes - uncomplicated BH Established Patient with Mimi Hupetere POCKET CUTTER 09/19/2020 Moderate recurrent major depression BH E stablished Patient with Mimi Hueve POCKET CUTTER 09/19/2020 Sleep disorder BH Established Patie nt with Mimi Hupetere POCKET CUTTER 09/19/2020 Body mass index [BMI] 37.0-37.9, adult M edical Established Patient with Maty Love HAND PAINT MIXER 09/19/2020 Chronic pain Medical Established Patient with Maty Chandlerag HAND PAINT MIXER 09/19/2020 Dependence on nicotine in ci garettes - uncomplicated Medical Established Patient with Maty Maag HAND PAINT MIXER 09/19/2020 Encounter for screening for diabetes mellitus Medical Established Patient with Maty Maag HAND PAINT MIXER 09/19/2020 Fibromyalgia Medical Established Patient with Maty Maag HAND PAINT MIXER 09/19/2020 Generalized anxiety disorder Medical Est ablished Patient with Maty Maag HAND PAINT MIXER 09/19/2020 Moderate recurrent major depression [place] Established Patient with Maty Maag HAND PAINT MIXER 09/19/2020 Sleep disorder Medical Established Patient with Maty Love HAND PAINT MIXER 09/19/2020 Exposure to a viral disease Telemedicine New Patient with Ro Austin HAND PAINT MIXER 09/07/2020 Encounter for Immunization 1st COVID Vac cine with Xi Roberson PharmD 08/27/2020 Generalized anxiety disorder Telebeha vioral Health with Mimi Santiagoe POCKET CUTTER 03/05/2020 Moderate recurrent major depression T elebehavioral Health with Mimipaty Santiagoe POCKET CUTTER 03/05/2020 Nicotine dependence uncomplicated Tel ebehavioral Health with Mimipaty Santiagoe POCKET CUTTER 03/05/2020 Chronic sinusitis, unspecified Telemedic ine Establisted Patient with Maty Maag HAND PAINT MIXER 03/05/2020 Magnesium deficiency Telemedicine Establ isted Patient with Maty Maag HAND PAINT MIXER 03/05/2020 Nicotine dependence, unspeci fied, uncomplicated Telemedicine Establisted Patient with Maty Maag HAND PAINT MIXER 03/05/2020 Vitamin D deficiency, unspecified Teleme dicine Establisted Patient with Maty Maag HAND PAINT MIXER 03/05/2020 B07.9 - Viral wart, unspecified Medical Established Patient with Noemi Chon HAND PAINT MIXER 01/23/2020 Epidermal inclusion cyst Medical Establi shed Patient with Noemi Chon HAND PAINT MIXER 01/23/2020 L82.1 - Other seborrheic keratosis Medic al Established Patient with Noemi Chon HAND PAINT MIXER 01/23/2020 Obesity due to excess calories Medical E stablished Patient with Noemi Chon HAND PAINT MIXER 01/23/2020 Z68.39 - Body mass index (BM I) 39.0-39.9, adult Medical Established Patient with Noemi Chon HAND PAINT MIXER 01/23/2020 Bipolar disorder, current ep isode hypomanic Telemedicine with Maty Madoyle HAND PAINT MIXER 11/27/2019 Body mass index Telemedicine with Maty Gonzalez EQUIPMENT CLEANER 11/27/2019 Chronic sinusitis, unspecified Telemedicine with Maty Madoyle HAND PAINT MIXER 11/27/2019 Nicotine dependence, unspeci fied, uncomplicated Telemedicine with Maty Maag HAND PAINT MIXER 11/27/2019 Obesity due to excess calories Telemedicine with Maty Love HAND PAINT MIXER 11/27/2019 Fibromyalgia Telemedicine with Maty Love C EQUIPMENT CLEANER 09/28/2019 Generalized anxiety disorder Telemedicine with Deandre Love HAND PAINT MIXER 09/28/2019 Major depressive disorder, r ecurrent, moderate Telemedicine with Maty Madoyle HAND PAINT MIXER 09/28/2019 Nicotine dependence, cigaret leonel, uncomplicated Telemedicine with Maty Madoyle HAND PAINT MIXER 09/28/2019 Generalized anxiety disorder Establis hed Patient with Mimi Santiagoe POCKET CUTTER 08/18/2019 Mild recurrent major depression BH Estab lished Patient with Mmii Santiagoe POCKET CUTTER 08/18/2019 Nicotine dependence uncomplicated BH Est ablished Patient with Mimi Hupetere POCKET CUTTER 08/18/2019 Allergy, unspecified, initial encounter Medical Established Patient with Maty Love HAND PAINT MIXER 08/18/2019 Body mass index (BMI) 38.0-38.9, adult M edical Established Patient with Maty Love HAND PAINT MIXER 08/18/2019 Chronic obstructive pulmonar y disease, unspecified Medical Established Patient with Maty Love HAND PAINT MIXER 08/18/2019 Chronic pain syndrome Medical Establishe d Patient with Maty oLve HAND PAINT MIXER 08/18/2019 Diabetes Risk Test Score was five score 08/18/2019 Medical Established Patient with Maty Love HAND PAINT MIXER 08/18/2019 Fibromyalgia Medical Established Patient with Maty Love HAND PAINT MIXER 08/18/2019 Generalized anxiety disorder Medical Est ablished Patient with Maty Love HAND PAINT MIXER 08/18/2019 Major depressive disorder, r ecurrent, moderate Medical Established Patient with Maty Love HAND PAINT MIXER 08/18/2019 Nicotine dependence, unspeci fied, uncomplicated Medical Established Patient with Maty Love HAND PAINT MIXER 08/18/2019 Obesity due to excess calories Medical E stablished Patient with Maty Love HAND PAINT MIXER 08/18/2019 Prediabetes Medical Established Patient with Maty Love HAND PAINT MIXER 08/18/2019 Sleep disorder, unspecified Medical Esta blished Patient with Maty Love HAND PAINT MIXER 08/18/2019 Acute laryngopharyngitis Medical Establi shed Patient with Cindy Oen HAND PAINT MIXER 07/13/2019 Acute pansinusitis unspecified Medical E stablished Patient with Cindy Oen HAND PAINT MIXER 07/13/2019 Body mass index Medical Established Patient with Cindy Oen HAND PAINT MIXER 07/13/2019 Obesity due to excess calories Medical E stablished Patient with Cindy Oen HAND PAINT MIXER 07/13/2019 Generalized anxiety disorder BH Establis hed Patient with Mimi Hueve POCKET CUTTER 01/06/2019 Moderate recurrent major depression BH E stablished Patient with Mimi Hueve POCKET CUTTER 01/06/2019 Anxiety disorder NOS Medical Established Patient with Cindy Oen HAND PAINT MIXER 01/06/2019 Anxiety disorder of unknown (axis III) etiology Medical Established Patient with Cindy Oen HAND PAINT MIXER 01/06/2019 Depression Medical Established Patient with Cindy Oen HAND PAINT MIXER 01/06/2019 Generalized anxiety disorder Medical Est ablished Patient with Cindy Oen HAND PAINT MIXER 01/06/2019 Adjustment disorder BH Established Patie nt with Leilani Tevin ESCOBAR-S 10/06/2018 Body mass index Medical Established Patient with Cindy Oen HAND PAINT MIXER 10/06/2018 Dast - 10 Score was 0 10/06/2018 Medical Established Patient with Cindy Oen HAND PAINT MIXER 10/06/2018 PHQ-9: total score was eight 10/06/2018 M edical Established Patient with Cindy Oen HAND PAINT MIXER 10/06/2018 Viral gastroenteritis (Eleva virus) Me dical Established Patient with Cindy Oen HAND PAINT MIXER 10/06/2018 Viral infection Medical Established Patient with Cindy Oen HAND PAINT MIXER 10/06/2018 swelling in [place]- seein g an ENT- trying to get shots for her allergies Medical Established Patient with Cindy Oen HAND PAINT MIXER 08/11/2018 Allergic rhinitis Medical Established Patient with Cindy Oen HAND PAINT MIXER 08/11/2018 Prehypertension Medical Established Patient with Cindy Oen HAND PAINT MIXER 08/11/2018 Acute pharyngitis Medical Established Patient with Cindy Oen HAND PAINT MIXER 07/22/2018 Assessment of cough Medical Established Patient with Cindy Oen HAND PAINT MIXER 07/22/2018 Assessment of fever Medical Established Patient with Cindy Oen HAND PAINT MIXER 07/22/2018 Bronchiolitis infectious Medical Establi shed Patient with Cindy Oen HAND PAINT MIXER 07/22/2018 Upper respiratory infection Medical Esta blished Patient with Cindy Oen HAND PAINT MIXER 07/22/2018 Instructions Instructions not supported for this document type No Instructions Recorded Instructions not supported for this document type No Instructions Recorded Instructions not supported for this document type No Instructions Recorded Instructions not supported for this document type No Instructions Recorded Instructions not supported for this document type No Instructions Recorded Instructions not supported for this document type No Instructions Recorded Instructions not supported for this document type No Instructions Recorded Instructions not supported for this document type No Instructions Recorded Instructions not supported for this document type No Instructions Recorded Instructions not supported for this document type No Instructions Recorded Instructions not supported for this document type No Instructions Recorded Instructions not supported for this document type No Instructions Recorded Instructions not supported for this document type No Instructions Recorded Instructions not supported for this document type No Instructions Recorded Instructions not supported for this document type No Instructions Recorded Instructions not supported for this document type No Instructions Recorded Instructions not supported for this document type No Instructions Recorded Instructions not supported for this document type No Instructions Recorded Instructions not supported for this document type No Instructions Recorded Instructions not supported for this document type No Instructions Recorded Instructions not supported for this document type No Instructions Recorded History of Present Illness History of Present Illness not supported for this document type No History of Present Illness Recorded History of Present Illness not supported for this document type No History of Present Illness Recorded History of Present Illness not supported for this document type No History of Present Illness Recorded History of Present Illness not supported for this document type No History of Present Illness Recorded History of Present Illness not supported for this document type No History of Present Illness Recorded History of Present Illness not supported for this document type No History of Present Illness Recorded History of Present Illness not supported for this document type No History of Present Illness Recorded History of Present Illness not supported for this document type No History of Present Illness Recorded History of Present Illness not supported for this document type No History of Present Illness Recorded History of Present Illness not supported for this document type No History of Present Illness Recorded History of Present Illness not supported for this document type No History of Present Illness Recorded History of Present Illness not supported for this document type No History of Present Illness Recorded History of Present Illness not supported for this document type No History of Present Illness Recorded History of Present Illness not supported for this document type No History of Present Illness Recorded History of Present Illness not supported for this document type No History of Present Illness Recorded History of Present Illness not supported for this document type No History of Present Illness Recorded History of Present Illness not supported for this document type No History of Present Illness Recorded History of Present Illness not supported for this document type No History of Present Illness Recorded History of Present Illness not supported for this document type No History of Present Illness Recorded History of Present Illness not supported for this document type No History of Present Illness Recorded History of Present Illness not supported for this document type No History of Present Illness Recorded Review of System Review of Systems not supported for this document type No Review of Systems Recorded Review of Systems not supported for this document type No Review of Systems Recorded Review of Systems not supported for this document type No Review of Systems Recorded Review of Systems not supported for this document type No Review of Systems Recorded Review of Systems not supported for this document type No Review of Systems Recorded Review of Systems not supported for this document type No Review of Systems Recorded Review of Systems not supported for this document type No Review of Systems Recorded Review of Systems not supported for this document type No Review of Systems Recorded Review of Systems not supported for this document type No Review of Systems Recorded Review of Systems not supported for this document type No Review of Systems Recorded Review of Systems not supported for this document type No Review of Systems Recorded Review of Systems not supported for this document type No Review of Systems Recorded Review of Systems not supported for this document type No Review of Systems Recorded Review of Systems not supported for this document type No Review of Systems Recorded Review of Systems not supported for this document type No Review of Systems Recorded Review of Systems not supported for this document type No Review of Systems Recorded Review of Systems not supported for this document type No Review of Systems Recorded Review of Systems not supported for this document type No Review of Systems Recorded Review of Systems not supported for this document type No Review of Systems Recorded Review of Systems not supported for this document type No Review of Systems Recorded Review of Systems not supported for this document type No Review of Systems Recorded Physical Exam Physical Exam not supported for this document type No Physical Exam Recorded Physical Exam not supported for this document type No Physical Exam Recorded Physical Exam not supported for this document type No Physical Exam Recorded Physical Exam not supported for this document type No Physical Exam Recorded Physical Exam not supported for this document type No Physical Exam Recorded Physical Exam not supported for this document type No Physical Exam Recorded Physical Exam not supported for this document type No Physical Exam Recorded Physical Exam not supported for this document type No Physical Exam Recorded Physical Exam not supported for this document type No Physical Exam Recorded Physical Exam not supported for this document type No Physical Exam Recorded Physical Exam not supported for this document type No Physical Exam Recorded Physical Exam not supported for this document type No Physical Exam Recorded Physical Exam not supported for this document type No Physical Exam Recorded Physical Exam not supported for this document type No Physical Exam Recorded Physical Exam not supported for this document type No Physical Exam Recorded Physical Exam not supported for this document type No Physical Exam Recorded Physical Exam not supported for this document type No Physical Exam Recorded Physical Exam not supported for this document type No Physical Exam Recorded Physical Exam not supported for this document type No Physical Exam Recorded Physical Exam not supported for this document type No Physical Exam Recorded Physical Exam not supported for this document type No Physical Exam Recorded Physical Exam not supported for this document type No Physical Exam Recorded Physical Exam not supported for this document type No Physical Exam Recorded Physical Exam not supported for this document type No Physical Exam Recorded Physical Exam not supported for this document type No Physical Exam Recorded Physical Exam not supported for this document type No Physical Exam Recorded Physical Exam not supported for this document type No Physical Exam Recorded Physical Exam not supported for this document type No Physical Exam Recorded Physical Exam not supported for this document type No Physical Exam Recorded Reason for Referral No Reason for Referral RecordedNo Reason for Referral RecordedNo Reason for Referral RecordedNo Reason for Referral RecordedNo Reason for Referral Recorded No Reason for Referral RecordedNo Reason for Referral RecordedNo Reason for Referral RecordedNo Reason for Referral RecordedNo Reason for Referral Recorded No Reason for Referral RecordedNo Reason for Referral RecordedNo Reason for Referral RecordedNo Reason for Referral RecordedNo Reason for Referral Recorded No Reason for Referral RecordedNo Reason for Referral Recorded Chief Complaint and Reason for Visit Chief Complaint URINARY FREQUENCY Chief Complaint URINARY FREQUENCY R35.0 Nonrheumatic aortic (valve) insufficiency Chief Complaint URINARY FREQUENCY R35.0 Nonrheumatic aortic (valve) insufficiency R06.02 SOB Chief Complaint URINARY FREQUENCY R35.0 I35.1 Nonrheumatic aortic (valve) insufficiency R06.02 SOB Chief Complaint URINARY FREQUENCY R35.0 I35.1 Nonrheumatic aortic (valve) insufficiency R06.02 SOB R94.39 Reason for Visit Abnormal stress test Aortic regurgitation COPD (chronic obstructive pulmonary disease) Fibromyalgia Hyperlipidemia Nicotine dependence Chief Complaint Nonrheumatic aortic (valve) insufficiency R06.02 R06.02 SOB R94.39 R94.39 Reason for Visit Abnormal stress test Aortic regurgitation COPD (chronic obstructive pulmonary disease) Fibromyalgia Hyperlipidemia Nicotine dependence Chief Complaint M79.7 Chief Complaint COPD/SPN Chief Complaint COPD/SPN J44.9 Chief Complaint n/v/d Additional Source Comments INFORMATION SOURCE (unrecogn ized section and content) DATE CREATED AUTHOR 12/15/2017 [facility] DATE CREATED AUTHOR AUTHOR'S ORGANIZ ATION 10/02/2018 [facility] DATE CREATED AUTHOR AUTHOR'S ORGANIZ ATION 08/05/2020 [facility] DATE CREATED AUTHOR AUTHOR'S ORGANIZ ATION 12/12/2020 [facility] DATE CREATED AUTHOR AUTHOR'S ORGANIZ ATION 12/27/2021 [facility] DATE CREATED AUTHOR AUTHOR'S ORGANIZ ATION 04/07/2023 [facility] DATE CREATED AUTHOR AUTHOR'S ORGANIZ ATION 03/21/2024 [facility] DATE CREATED AUTHOR AUTHOR[facility]S [facility]IZ ATION [facility] [facility] Evaluations & Outcomes (unre cognized section and content) Includes: Evaluations & Outcomes for active GoalsNo Outcomes Recorded Includes: Evaluations & Outcomes for active GoalsNo Outcomes Recorded Includes: Evaluations & Outcomes for active GoalsNo Outcomes Recorded Includes: Evaluations & Outcomes for active GoalsNo Outcomes Recorded Includes: Evaluations & Outcomes for active GoalsNo Outcomes Recorded Includes: Evaluations & Outcomes for active GoalsNo Outcomes Recorded Includes: Evaluations & Outcomes for active GoalsNo Outcomes Recorded Includes: Evaluations & Outcomes for active GoalsNo Outcomes Recorded Includes: Evaluations & Outcomes for active GoalsNo Outcomes Recorded Includes: Evaluations & Outcomes for active GoalsNo Outcomes Recorded Includes: Evaluations & Outcomes for active GoalsNo Outcomes Recorded Includes: Evaluations & Outcomes for active GoalsNo Outcomes Recorded Includes: Evaluations & Outcomes for active GoalsNo Outcomes Recorded Includes: Evaluations & Outcomes for active GoalsNo Outcomes Recorded Includes: Evaluations & Outcomes for active GoalsNo Outcomes Recorded Includes: Evaluations & Outcomes for active GoalsNo Outcomes Recorded Includes: Evaluations & Outcomes for active GoalsNo Outcomes Recorded Includes: Evaluations & Outcomes for active GoalsNo Outcomes Recorded Includes: Evaluations & Outcomes for active GoalsNo Outcomes Recorded Includes: Evaluations & Outcomes for active GoalsNo Outcomes Recorded Includes: Evaluations & Outcomes for active GoalsNo Outcomes Recorded Medical History (unrecognize d section and content) Description Allergy list reviewed 09/28/2019 Telehealth Pre-Visit Reviewed by mario latif 09/28/2019 A recent immunization for flu 07/13/2019 No previous hospitalizations 07/13/2019 History of adjustment disorder with anxi ety 01/06/2019 History of anxiety disorder NOS 01/07/20 19 History of depression 01/06/2019 History of female pelvic pain 01/06/2019 History of generalized anxiety disorder 01/06/2019 No history of chronic fatigue syndrome 0 01/06/2019 No recent change in medical history 12/19 History of chronic pain 01/06/2019 Description Last Updated History of hypertension 09/19/2020 Allergy list reviewed 09/28/2019 Telehealth Pre-Visit Reviewed by mario latif 09/28/2019 A recent immunization for flu 07/13/2019 No previous hospitalizations 07/13/2019 History of adjustment disorder with anxi ety 01/06/2019 History of anxiety disorder NOS 01/07/20 19 History of depression 01/06/2019 History of female pelvic pain 01/06/2019 History of generalized anxiety disorder 01/06/2019 No history of chronic fatigue syndrome 0 01/06/2019 No recent change in medical history 12/19 History of chronic pain 01/06/2019 Goals (unrecognized section and content) Goals may be documented in a n alternate section Care Teams (unrecognized sec tion and content) Team Status: Active Member Role Status Dates Bethany Nesbitt APRN CNP Primary Care Provider Activ e Team Status: Inactive Member Role Status Dates Bethany Nesbitt APRN CNP Primary Care Provider, Atte nding Provider Active Team Status: Inactive Member Role Status Dates Bethany Nesbitt , THERAPEUTIC ASSISTANT HAND PAINT MIXER Primary Care Provider Activ sana Quick , Attending Provider Active Team Status: Inactive Member Role Status Dates Bethany Nesbitt APRN CNP Primary Care Provider Activ sana Baker , THERAPEUTIC ASSISTANT HAND PAINT MIXER Attending Provider Active Team Status: Active Member Role Status Dates Dr. Kyle Sparrow MD Family Provider Active No Primary Care Physician Primary Care Provider Active Team Status: Inactive Member Role Status Dates No Primary Care Physician Primary Care Provider Active Dr. Jose Jarquin MD Emergency Provider Active FOR RECORDS PERTAINING TO PATIENTS WHO ARE OR HAVE BEEN ENROLLED IN A CHEMICAL DEPENDENCY/SUBSTANCEABUSE PROGRAM, SOME INFORMATION MAY BE OMITTED. This clinical summary was aggregated from multiple sources. Caution should be exercised in using it in the provision of clinical care. This summary normalizes information from multiple sources, and as a consequence, information in this document may materially change the coding, format and clinical context of patient data. In addition, data may be omitted in some cases. CLINICAL DECISIONS SHOULD BE BASED ON THE PRIMARY CLINICAL RECORDS. [employer] provides no warranty or guarantee of the accuracy or completeness of information in this document.
[2024-12-15 22:05] VITALS: BMI 34.2
--- NOTE | 2024-12-15 22:15 | EDS_ITS ---
HPI HPI - Fall History of Present Illness Chief Complaint: Lower Extremity Injury Informant: patient Occured/Mechanism Occurred: Weeks Mechanism/Context: Yes same level fall Usually ambulates: Without assistance Pain/Injury Pain Location: pelvis Quality of Pain: Dull and Aching Current Severity: Mild Maximum Severity: Moderate Associated Symptoms Associated Symptoms: Negative for Parasthesias, Weakness, Loss of function, Inability to ambulate, Loss of consciousness or Amnesia Narrative Narrative: 64-year-old female past medical history of fibromyalgia and COPD. Was getting off off the chair 2 to 3 weeks ago. Said a chair kicked out from under she landed flat on her buttocks injuring her tailbone pelvis and left hip. Said the pain just become more annoying over the last several days that she came in [facility] to have it evaluated. She has not been seen for this before [facility]. She denies any head injury or other injuries. She is able to walk. Prior similar symptoms: No Recent Illness/Hospitalization: No PFSH [facility]LY [facility] Medical History Fibromyalgia COPD (chronic obstructive pulmonary disease) On home oxygen therapy Kidney stones Home Medications ?Medication ?Instructions ?Recorded ?Last Taken ?Type Saccharomyces boulardii 250 mg 250 mg PO DAILY 5 Unknown History capsule (Probiotic (S.boulardii)) budesonide 160 mcg-glycopyr 9 2 inh inhalation BID Unknown History mcg-formot 4.8 mcg/actuation HFA inhaler (Breztri Aerosphere) cholecalciferol (vitamin D3) 125 125 mcg PO DAILY 07/22 01/12 Unknown History mcg (5,000 unit) capsule fexofenadine 180 mg tablet 180 mg PO DAILY 08/07/24 Un known History (Allergy Relief (fexofenadine)) fluoxetine 20 mg capsule 20 mg PO QHS 08/07/24 Unknow n History fluoxetine 40 mg capsule 40 mg PO DAILY 08/07/24 Unkn own History fluticasone propionate 50 1 spray intranasal DAILY Unknown History mcg/actuation nasal spray,suspension folic acid 1 mg tablet 1 mg PO DAILY 08/07/24 Unkno wn History gabapentin 800 mg tablet 800 mg PO 4X/DAY 08/07/24 Un known History omeprazole 40 mg capsule,delayed 40 mg PO DAILY Unknown History release potassium chloride 20 mEq 20 meq PO DAILY 08/07/24 Unk nown History tablet,extended release(part/cryst) roflumilast 500 mcg tablet 500 mcg PO DAILY 08/07/24 U nknown History sucralfate 1 gram tablet 1 g PO DAILY 08/07/24 Unknow n History tizanidine 4 mg tablet 4 mg PO TID PRN muscle spast icity 08/07/24 Unknown History vitamin B complex 1 cap PO DAILY 08/07/24 Unkn own History cephalexin 500 mg capsule 500 mg PO BID 3 days #6 caps 08/08/24 Unknown Rx oseltamivir 75 mg capsule 75 mg PO BID 3 days #6 caps 08/08/24 Unknown Rx Allergy/AdvReac Type Severity Reaction Status Date / Time ropinirole (From Requip) Allergy Severe Anaphylaxis Verified 12/15/24 20:48 latex Allergy Mild Rash Verified 12/15/24 20:48 mold AdvReac PT UNSURE Verified 12/15/24 20:48 OF REACTION Surgical History H/O: hysterectomy History of appendectomy History of cholecystectomy Social History household members: family housing: house Smoking Status: Current every day smoker tobacco type: e-cigarettes ROS ROS ED ROS Narrative Denies recent illness. Constitutional Constitutional ED: Denies chills or fever(s) Eyes Eyes: Denies blurry vision ENT ENT ED: Denies ear pain Cardiovascular Cardiovascular: Denies chest pain Respiratory/Chest Respiratory/Chest: Denies cough or dyspnea Gastrointestinal Gastrointestinal: Denies abdominal pain Genitourinary Genitourinary ED: Denies dysuria or hematuria Musculoskeletal Musculoskeletal: Denies arthralgias Integumentary Denies abscess Neurologic Neurologic: Denies headache(s) Psychiatric Psychiatric: Denies anxiety or depression Endocrine Endocrinology: Denies polydipsia Hematologic/Lymphatic Hematologic/Lymphatic: Denies easy bleeding Allergic/Immunologic Allergic/Immunologic ED: Denies mouth swelling, tongue swelling or urticaria EXAM Physical Exam Narrative Exam Narrative: 64-year-old female. Sitting upright in bed. No acute distress. Family at bedside. Vital signs are stable afebrile. H EENT exam pupils round reactive light. No signs of trauma to her face or scalp. Nontender. No hematoma. Neck nontender. Back nontender except for her tailbone and sacral region. Lungs clear. Heart regular rhythm. Abdomen soft nontender. Chest wall ribs nontender. Pelvic girdle intact. No shortening or rotation either hip. She has normal flexion extension of both hips. There is no anterior pelvic bone tenderness. Moving all 4 extremities. 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 Normal dorsi plantarflexion. No tenderness or bony deformity. Normal range of motion. Neurologically she is awake alert. Answering questions following commands. Const Vital Signs: 12/15/24 20:49 Temperature 98.3 F Temperature Source Temporal Pulse Rate 85 Respiratory Rate 14 Blood Pressure 121/84 H Blood Pressure Mean 96 Pulse Ox 98 Oxygen Delivery Method Room Air Positive well nourished and well developed; Negative for cachectic, contractures or unkempt General Appearance ED: well developed and NAD; Negative for unkempt, cachectic or contractures Nutritional Appearance: Negative for cachectic HEENT Reports normocephalic atraumatic; Negative for trauma, contusion, hematoma or tenderness Eyes PERRL and EOMs intact bilaterally General Eye ED: Negative for pale conjunctiva or scleral icterus Neck full ROM, no lymphadenopathy and supple General: Negative for tenderness Chest Wall inspection of chest normal and palpation of chest normal Resp normal respiratory effort, no retractions and clear to auscultation bilaterally Auscultation: Negative for rales, rhonchi, wheezes or diminished lung sounds Cardio regular rate, regular rhythm, S1 normal heart sound, S2 normal heart sound and no murmurs Rate: Negative for bradycardia or tachycardic Rhythm: Negative for abnormal rhythm Bruits: Negative for other GI non-tender, non-distended and no masses Inspection: Negative for abdominal distention Auscultation: normoactive bowel sounds Palpation: soft; Negative for guarding or rebound tenderness present Back/Spine no CVA tenderness Back/Spine Narrative: Tailbone and sacrum tenderness. General Back: Negative for CVA tenderness Cervical Spine: Negative for cervical spine tenderness Lumbar Spine / Lower Back: lumbar spinal tenderness Extremity Extremity Narrative: Nontender. No deformity. Normal range of motion. Neuro oriented x3, CN's II-XII intact bilaterally, moves all extremities, no focal motor deficits and no sensory deficits noted [place] Coma Scale: document GCS findings Spontaneous Obeys Commands Oriented 15 Sensorium / Orientation: alert, oriented to person, oriented to place and oriented to time; Negative for orientation impaired, confused or lethargic Motor Exam: strength 5/5 throughout Psych mental status grossly normal and thought process normal Appearance: Negative for unkempt Attitude: No agitated Mood & Affect: Negative for depressed, anxious or tearful Skin General Skin Exam: Negative for other Lesions: no lesions Rashes: no rashes Trauma: Negative for abrasion, laceration or puncture MDM MDM MDM Narrative Medical decision making narrative: 64-year-old female fell when getting up from a chair 2 to 3 weeks ago. Complaining of pain over her tailbone sacrum area. CAT scan being obtained. Clinically I do not think it is a hip fracture. She has normal range of motion of the hip. Is not tender or shortened or rotated. She did not wining for pain. Repeat exam patient doing well at 11:14 PM. I went over her CAT scan report. Clinically and historically it would be consistent with a coccyx fracture. Discharged to home. Ice. Tylenol for pain. Motrin. Follow-up if not improving. There is no hip fracture or other pelvis fracture seen. History & Record Review Discussion w/independent historian: Patient and Family Additional record(s) reviewed:: Prior inpatient record, Prior outpatient record, Prior ED visit and Prior labs Radiography Diagnostic Testing: Clinical Impression(s) from Imaging Studies Pelvis CT 12/15/24 22:20 IMPRESSION: Cortical irregularity and flattening of the coccyx could be a nondisplaced fracture. Reading Location: [facility] Discharge Plan Triage Chief Complaint: Lower Extremity Injury ED Provider: Sky Lin Dx/Rx/DC Orders Clinical Impression: Fall, Closed fracture of coccyx Instructions: ED Tailbone (Coccyx) Fracture Prescriptions: No Action fexofenadine [Allergy Relief (fexofenadine)] 180 mg tablet 180 mg PO DAILY folic acid 1 mg tablet 1 mg PO DAILY tizanidine 4 mg tablet 4 mg PO TID PRN (Reason: muscle spasticity) vitamin B complex Capsule 1 cap PO DAILY Patient Comments: [NO ORIGINAL SIG] fluoxetine 40 mg capsule 40 mg PO DAILY fluoxetine 20 mg capsule 20 mg PO QHS Breztri Aerosphere 160-9-4.8 mcg/actuation HFA aerosol inhaler 2 inh INHALATION BID Patient Comments: [NO ORIGINAL SIG] fluticasone propionate 50 mcg/actuation spray,suspension 1 spray INTRANASAL DAILY Patient Comments: [NO ORIGINAL SIG] gabapentin 800 mg tablet 800 mg PO 4X/DAY omeprazole 40 mg capsule,delayed release(DR/EC) 40 mg PO DAILY Rx Instructions: TAKE BEFORE BREAKFAST potassium chloride 20 mEq tablet,ER particles/crystals 20 meq PO DAILY roflumilast 500 mcg tablet 500 mcg PO DAILY sucralfate 1 gram tablet 1 g PO DAILY Patient Comments: [NO ORIGINAL SIG] Saccharomyces boulardii [Probiotic (S.boulardii)] 250 mg capsule 250 mg PO DAILY cholecalciferol (vitamin D3) 125 mcg (5,000 unit) capsule 125 mcg PO DAILY oseltamivir 75 mg Capsule 75 mg PO BID 3 Days Qty: 6 0RF cephalexin 500 mg capsule 500 mg PO BID 3 Days Qty: 6 0RF Primary Care Provider: Mayra Pierce Referrals: Mayra Pierce MD [Primary Care Provider] - As Needed Activity Restrictions/Additional Instructions: Ice to your tailbone and buttocks. Tylenol for pain. Motrin for pain and swelling. This should progressively improve but may take weeks. You can use an air doughnut or pillow to sit on it to make it more comfortable. Follow-up with your doctor as needed. Print Language: Khmer Disposition Disposition: Home, Self Care
--- NOTE | 2024-12-15 22:20 | CT_ITS ---
EXAM: CT Pelvis Without Intravenous Contrast CLINICAL INDICATION: FELL 2 WEEKS AGO. TAILBONE AND LEFT HIP PAIN TECHNIQUE: Axial computed tomography images of the pelvis without intravenous contrast. This CT exam was performed using one or more of the following dose reduction techniques: automated exposure control, adjustment of the mA and/or kV according to patient size, and/or use of iterative reconstruction technique. COMPARISON: No relevant prior studies available. FINDINGS: BOWEL: Unremarkable. No obstruction. No mucosal thickening. APPENDIX: No findings to suggest acute appendicitis. INTRAPERITONEAL SPACE: Unremarkable. No free air. No significant fluid collection. BLADDER: Unremarkable. No stones. REPRODUCTIVE: Unremarkable as visualized. BONES/JOINTS: Cortical irregularity and flattening of the coccyx could be a nondisplaced fracture. Multilevel endplate degenerative changes, facet arthropathy and disc disease of the visualized lumbar spine. No dislocation. SOFT TISSUES: Unremarkable. VASCULATURE: Unremarkable. No lower abdominal aortic aneurysm. LYMPH NODES: Unremarkable. No enlarged lymph nodes. CT/Pelvis without IV Contrast IMPRESSION: Cortical irregularity and flattening of the coccyx could be a nondisplaced frac ture. Reading Location: [id number]
[2024-12-15 23:24] VITALS: BP 148/88; PULSE 76; RESP 16; TEMP 37.1; O2SAT 98
== END 2024-12-15 23:25 | disposition home or self-care (01) ==
PROVIDERS: Emergency Provider Emergency Medicine; PCP Student in an Organized Health Care Education/Training Program; Visit Provider Emergency Medicine
DX: S32.2XXA Fracture of coccyx, initial encounter for closed fracture (principal); J44.9 Chronic obstructive pulmonary disease, unspecified; W07.XXXA Fall from chair, initial encounter; F17.290 Nicotine dependence, other tobacco product, uncomplicated; Z79.51 Long term (current) use of inhaled steroids; Z99.81 Dependence on supplemental oxygen
CPT/HCPCS: 72192; 99282

== ENCOUNTER 2025-01-28 20:14 | Emergency (ER) | payer MEDICARE, MEDICAID, SELFPAY ==
[2025-01-28 20:14] VITALS: BP 125/108; PULSE 88; RESP 20; TEMP 36.6; O2SAT 93; BMI 34.4
--- NOTE | 2025-01-28 21:17 | ED.VIS.CHEST ---
HPI History of Present Illness Chief Complaint: Chest Other Informant: patient Onset/Context/Timing Onset: Days Activity at onset: sudden Timing: Intermittent Quality: Positive for - (Stuttering) Location: Left Parasternal Worsened By: Nothing Relieved By: Nothing Associated Symptoms: Positive for Nausea, Cough, Acid Reflux and Palpitations; Negative for Vomiting, Diaphoresis, Dyspnea, Fever or Lightheadedness Narrative Narrative: Patient presents with intermittent chest pain over the past few days. Patient describes it as stabbing. Patient states he is able to left parasternal area. Patient states nothing makes it better nothing makes it worse. Patient admits to some nausea. Patient denies any vomiting. Patient denies any shortness of breath. Patient does admit to a cough and some rhinorrhea. Patient states she occasionally feels her heart racing. Patient denies any fevers or chills. Patient denies any diaphoresis. Currently, patient denies any pain. CVD Risk Factors: Negative for Hypertension, Diabetes, Hypercholesterolemia, Family History 1' </=55 or Smoking PE Risk Factors: Negative for Recent Travel/Surgery, Recent Immobilization, Prior DVT or PE, Cancer or OCP + Smoking + >/=35 [facility] Medical History Marijuana use Fibromyalgia COPD (chronic obstructive pulmonary disease) On home oxygen therapy Kidney stones Home Medications ?Medication ?Instructions ?Recorded ?Last Taken ?Type Saccharomyces boulardii 250 mg 250 mg PO DAILY 08/07/24 Unknown History capsule (Probiotic (S.boulardii)) budesonide 160 mcg-glycopyr 9 2 inh inhalation BID 08/07/24 Unknown History mcg-formot 4.8 mcg/actuation HFA inhaler (Breztri Aerosphere) cholecalciferol (vitamin D3) 125 125 mcg PO DAILY 08/07/24 Unknown History mcg (5,000 unit) capsule fexofenadine 180 mg tablet 180 mg PO DAILY 08/07/24 Unknown History (Allergy Relief (fexofenadine)) fluoxetine 20 mg capsule 20 mg PO QHS 08/07/24 Unknown History fluoxetine 40 mg capsule 40 mg PO DAILY 08/07/24 Unknown History fluticasone propionate 50 1 spray intranasal DAILY 08/07/24 Unknown History mcg/actuation nasal spray,suspension folic acid 1 mg tablet 1 mg PO DAILY 08/07/24 Unknown History gabapentin 800 mg tablet 800 mg PO 4X/DAY 08/07/24 Unknown History omeprazole 40 mg capsule,delayed 40 mg PO DAILY 08/07/24 Unknown History release potassium chloride 20 mEq 20 meq PO DAILY 08/07/24 Unknown History tablet,extended release(part/cryst) roflumilast 500 mcg tablet 500 mcg PO DAILY 08/07/24 Unknown History sucralfate 1 gram tablet 1 g PO DAILY 08/07/24 Unknown History tizanidine 4 mg tablet 4 mg PO TID PRN muscle spasticity 08/07/24 Unknown History vitamin B complex 1 cap PO DAILY 08/07/24 Unknown History cephalexin 500 mg capsule 500 mg PO BID 3 days #6 caps 08/08/24 Unknown Rx oseltamivir 75 mg capsule 75 mg PO BID 3 days #6 caps 08/08/24 Unknown Rx Allergy/AdvReac Type Severity Reaction Status Date / Time ropinirole (From Requip) Allergy Severe Anaphylaxis Verified 01/28/25 20:18 latex Allergy Mild Rash Verified 01/28/25 20:18 mold AdvReac PT UNSURE Verified 01/28/25 20:18 OF REACTION Surgical History H/O: hysterectomy History of appendectomy History of cholecystectomy Social History household members: family housing: house Smoking Status: Current every day smoker tobacco type: e-cigarettes ROS ROS ED Constitutional Constitutional ED: Denies chills or fever(s) Eyes Eyes: Denies blurry vision or change in vision ENT ENT ED: Reports rhinorrhea; Denies sore throat Cardiovascular Cardiovascular: Reports chest pain and palpitations Respiratory/Chest Respiratory/Chest: Reports cough; Denies dyspnea Gastrointestinal Gastrointestinal: Reports nausea; Denies abdominal pain or vomiting Genitourinary Genitourinary ED: Denies dysuria or hematuria Musculoskeletal Musculoskeletal: Reports back pain and neck pain Integumentary Denies abscess or rash Neurologic Neurologic: Reports headache(s); Denies weakness Allergic/Immunologic Allergic/Immunologic ED: Denies mouth swelling or urticaria EXAM Physical Exam Const Vital Signs: 01/28/25 20:14 01/28/25 21:33 01/28/25 21:50 Temperature 97.8 F Temperature Source Oral Pulse Rate 88 Respiratory Rate 20 H Respiratory Effort Normal Non-Labored Respiratory Pattern Normal Blood Pressure 125/108 H Blood Pressure Mean 113 Pulse Ox 93 97 Oxygen Delivery Method Room Air Room Air 01/28/25 22:00 01/29/25 00:00 01/29/25 01:08 Temperature 98 F Temperature Source Pulse Rate 68 67 73 Respiratory Rate 16 16 18 Respiratory Effort Respiratory Pattern Blood Pressure 140/68 H 136/76 H 140/82 H Blood Pressure Mean 92 96 101 Pulse Ox 94 98 98 Oxygen Delivery Method Room Air Room Air Positive well nourished and well developed Constitutional Narrative: BMI is 34.5. General Appearance ED: well developed and NAD HEENT Reports moist mucous membranes normocephalic and atraumatic Neck supple and no JVD Chest Wall palpation of chest normal Resp normal respiratory effort and clear to auscultation bilaterally Cardio regular rate and regular rhythm GI soft to palpation, non-tender and non-distended Extremity normal to inspection General Extremety ED: Negative for edema General Extremity: Negative for edema Neuro oriented x3, CN's II-XII intact bilaterally and no sensory deficits noted Sensorium / Orientation: awake and alert Motor Exam: strength 5/5 throughout Psych mental status grossly normal Heart Score History: Slightly/Non-Suspicious ECG: Normal Age: >/= 65 years Risk Factors: No Risk Factors Troponin: </= Normal Limit Score: 2 MDM MDM MDM Narrative Medical decision making narrative: Differential diagnosis includes cardiac dysrhythmia, cardiac ischemia, pneumonia, bronchitis, musculoskeletal pain, esophageal reflux disease, and anxiety. CBC will be obtained to assess for leukocytosis and anemia. Basic metabolic profile will be obtained to assess for electrolyte abnormality and renal function. High-sensitivity troponin will be obtained to assess for cardiac ischemia. 2-hour repeat high-sensitivity troponin will be obtained to assess for ongoing cardiac ischemia. EKG will be obtained to assess for cardiac dysrhythmia and cardiac ischemia. Chest x-ray will be obtained to assess for pneumonia and bronchitis. Lab Data Attestation: I reviewed the patient's lab results. Lab results narrative: CBC was reviewed and was within normal limits. Basic metabolic profile was reviewed and was within normal limits. High-sensitivity troponin was reviewed and was less than 6. 2-hour repeat high-sensitivity troponin was reviewed and was less than 6. Labs: Laboratory Results - last 24 hr 01/28/25 01/28/25 21:46 23:58 WBC 6.8 RBC 4.87 Hgb 14.4 Hct 43.9 MCV 90.1 MCH 29.6 MCHC 32.8 RDW Std Deviation 41.7 RDW Coeff of Pravin 12.7 Plt Count 308 MPV 9.7 Immature Gran % (Auto) 0.100 Neut % (Auto) 36.4 L Lymph % (Auto) 48.0 H Holt % (Auto) 10.0 Eos % (Auto) 4.9 Baso % (Auto) 0.6 Absolute Neuts (auto) 2.5 Absolute Lymphs (auto) 3.26 Nucleated RBC % 0 Sodium 139 Potassium 4.3 Chloride 102 Carbon Dioxide 26.5 Anion Gap 10 BUN 8 Creatinine 0.87 Estim Creat Clear Calc 68.64 Est GFR (MDRD) Non-Af 73 BUN/Creatinine Ratio 9.6 L Glucose 98 Calcium 9.0 Troponin T High Sens < 6 Troponin T Hi Sens 2 Hr < 6 Radiography Chest X-Ray - ED: 1 View, Read by ED Physician, Read by Radiologist and No Acute Disease Diagnostic Testing: Clinical Impression(s) from Imaging Studies Chest X-Ray 01/28/25 21:50 IMPRESSION: No Acute Findings. Reading Location: [facility] Portable 1 view chest x-ray was obtained. On my independent interpretation, lung forbes are clear. There is normal cardiac silhouette. Bony thorax is normal. There is no acute process noted. Radiologist also interpreted the x-ray and agrees. EKG Initial EKG: Attestation: I personally reviewed and interpreted this EKG as follows: Interpretation: Sinus Rhythm (81) and No Acute Injury Pattern Comments: EKG was obtained. On my independent interpretation, it showed a normal sinus rhythm with a rate of 81. PA interval, QRS interval, and QTc intervals were all normal. There is left axis deviation -27. There are no acute ST or T wave changes. Prior EKG tracings: available for review Prior: Unchanged (08/07/2024) Treatment and Re-Evaluation :: Patient was given aspirin here. Patient had no further chest pain. Patient was advised of her findings. Patient has a HEART score of 2. Patient was advised that this is low risk for acute cardiac event. Patient was instructed to follow-up with her primary care physician in 5 to 7 days. Patient was instructed to return if worse in any way. Patient understood and was agreeable with the plan. All questions were answered. Discharge Plan Triage Chief Complaint: Chest Other ED Provider: Augustine Kelly Dx/Rx/DC Orders Clinical Impression: Chest pain, History of fibromyalgia, Elevated blood pressure reading Instructions: ED Chest Pain, Uncertain Cause Prescriptions: No Action fexofenadine [Allergy Relief (fexofenadine)] 180 mg tablet 180 mg PO DAILY folic acid 1 mg tablet 1 mg PO DAILY tizanidine 4 mg tablet 4 mg PO TID PRN (Reason: muscle spasticity) vitamin B complex Capsule 1 cap PO DAILY Patient Comments: [NO ORIGINAL SIG] fluoxetine 40 mg capsule 40 mg PO DAILY fluoxetine 20 mg capsule 20 mg PO QHS Breztri Aerosphere 160-9-4.8 mcg/actuation HFA aerosol inhaler 2 inh INHALATION BID Patient Comments: [NO ORIGINAL SIG] fluticasone propionate 50 mcg/actuation spray,suspension 1 spray INTRANASAL DAILY Patient Comments: [NO ORIGINAL SIG] gabapentin 800 mg tablet 800 mg PO 4X/DAY omeprazole 40 mg capsule,delayed release(DR/EC) 40 mg PO DAILY Rx Instructions: TAKE BEFORE BREAKFAST potassium chloride 20 mEq tablet,ER particles/crystals 20 meq PO DAILY roflumilast 500 mcg tablet 500 mcg PO DAILY sucralfate 1 gram tablet 1 g PO DAILY Patient Comments: [NO ORIGINAL SIG] Saccharomyces boulardii [Probiotic (S.boulardii)] 250 mg capsule 250 mg PO DAILY cholecalciferol (vitamin D3) 125 mcg (5,000 unit) capsule 125 mcg PO DAILY oseltamivir 75 mg Capsule 75 mg PO BID 3 Days Qty: 6 0RF cephalexin 500 mg capsule 500 mg PO BID 3 Days Qty: 6 0RF Primary Care Provider: Mayra Pierce Referrals: Mayra Pierce MD [Primary Care Provider] - 3-5 Days Print Language: Argentine Disposition Disposition: Home, Self Care Discharge Date/Time: 01/29/25 01:12
[2025-01-28 21:50] VITALS: O2SAT 97
--- NOTE | 2025-01-28 21:50 | RAD_ITS ---
PROCEDURE: CHEST 1 VIEW (PORTABLE) 01/28/2025 REASON FOR EXAM: CHEST PAIN TECHNIQUE: Frontal view of the chest. COMPARISON: 08/07/2024 FINDINGS: Hardware: None. Heart: The heart size is normal. Lungs: The lungs are clear. Bones: The bones are unremarkable. RAD/Chest 1 View (Portable) IMPRESSION: No Acute Findings. Reading Location[facility]
--- NOTE | 2025-01-28 21:50 | EKG12_ITS ---
Test Reason : CP Blood Pressure : */* mmHG Vent. Rate : 81 BPM Atrial Rate : 81 BPM P-R Int : 164 ms QRS Dur : 76 ms QT Int : 372 ms P-R-T Axes : 74 -27 33 degrees QTcB Int : 432 ms Normal sinus rhythm Normal ECG Confirmed by AUGUST BYRD, SREE ([id number]), managing editor HOWARD HENNING ([id number]) on 01/29/2025 1:16:27 PM Referred By: TIFFANY Confirmed By: SREE KOCH MD
[2025-01-28 22:00] VITALS: BP 140/68; PULSE 68; RESP 16; O2SAT 94
--- OUTSIDE RECORDS SUMMARY | 2025-01-28 22:06 | XMS RPT_ITS | CCD ---
Author Organization [facility] Care Team Providers Care Flight Director Name Role Phone CINDY LOPES MD HEALTH [...] Cindy Lopes Unavailable Unavailable Agustin Unavailable Unavailable Sanjasmeet Unavailable Unavailable Cindy Lopes Unavailable Unavailable Josh Rodriguez Attending Unavailable Cindy Lopes Primary Care Provider Maty Love Primary Care Provider [phone] Maty Love Primary Care Provider ALDO LI Attending Unavailable ALE MENDOZA Primary Care Unavailable Ro Austin Unavailable Maty Love Primary Care Provider Ro Austin CNP Unavailable Maty Love CNP Primary Care Provider Shazia Bhatti CNP Primary Care Provider Maty Love CNP Unavailable Moses ROMERO - Cindy QUEEN Primary Care Provider CINDY LOPES Primary Care Unavailable SHAZIA STEVENS Referring Unavailable Shazia Bhatti CNP Primary Care Provider [phone] Chon QUEEN Noemi Unavailable kadi NITROGEN OPERATORCindy Unavailable BRET Nesbitt Bethany M Primary Care Provider BRET Nesbitt Bethany M Attending Provider AGUSTO CHRISTIANSEN Attending Unavailable AGUSTO CHRISTIANSEN Admitting Unavailable VICENTE ROSAS Primary Care Unavailable BRET Nesbitt Bethany M Primary Care Provider BRET Nesbitt Bethany M Attending Provider None, Physician Primary Care Provider [phone] Delicia PARI MUTUEL TICKET CASHIER Bethany M Primary Care Provider TORREY NesbittN Bethany M Attending Provider Klejaclyn, PARI MUTUEL TICKET CASHIER Bethany M Primary Care Provider TORREY NesbittN Bethany M Attending Provider None, Physician Primary Care Provider [phone] Arabpour, DO Jae Attending Provider [phone] Delicia PARI MUTUEL TICKET CASHIER Bethany M Attending Provider Delicia, PARI MUTUEL TICKET CASHIER Bethany M Primary Care Provider Klejaclyn, PARI MUTUEL TICKET CASHIER Bethany M Primary Care Provider Delicia, PARI MUTUEL TICKET CASHIER Bethany M Attending Provider Delicia, PARI MUTUEL TICKET CASHIER Bethany M Primary Care Provider Klejaclyn, PARI MUTUEL TICKET CASHIER Bethany M Attending Provider Arabpour, DO Jae Attending Provider [phone] Delicia, PARI MUTUEL TICKET CASHIER Bethany M Primary Care Provider Delicia, PARI MUTUEL TICKET CASHIER Bethany M Attending Provider Delicia ROMERO-NITROGEN OPERATOR, Bethany M Primary Care Unavai lable Arabpour, Jae Attending Unavailable Delicia PARI MUTUEL TICKET CASHIER-NITROGEN OPERATOR, Bethany M Primary Care Unavai lable Arabpour, Jae Attending Unavailable Klejaclyn HIRSCHN-NITROGEN OPERATOR, Bethany M Primary Care Unavai lable Klejaclyn PARI MUTUEL TICKET CASHIER-NITROGEN OPERATOR, Bethany M Attending Unavai lable Delicia PARI MUTUEL TICKET CASHIER-NITROGEN OPERATOR, Bethany M Primary Care Unavai lable Kleman PARI MUTUEL TICKET CASHIER-NITROGEN OPERATOR, Bethany M Attending Unavai lable Klejaclyn PARI MUTUEL TICKET CASHIER-NITROGEN OPERATOR, Bethany M Attending Unavarocky Zhong Primary Care Unavailable DO Roland Quick Attending Provider NICK Nesbitt Primary Care Provider [phone] NICK Nesbitt Attending Provider [phone] DO Roland Quick Attending Provider NICK Baker Attending Provider Stan BYRD, Dr. Nunez Primary Care Provider Riley BYRD, Dr. Swanson Emergency Provider [phone] Julio Blake Consulting Unavailable Julio Blake Admitting Unavailable Michael Raymundo Attending Unavailable Mayra Cortez Primary Care Unavailable Michael Raymundo Consulting Unavailable Sky Lin Attending Unavailable Mayra Cortez Primary Care Unavailable Julio Blake Consulting Unavailable Julio Blake Admitting Unavailable Michael Raymundo Attending Unavailable Mayra Cortez Primary Care Unavailable Mayra Cortez Primary Care Unavailable Julio Blake Attending Unavailable MAYRA CORTEZ MD Primary Care Unavailable MAYRA CORTEZ MD Attending Unavailable MAYRA CORTEZ MD Admitting Unavailable MAYRA CORTEZ MD Primary Care Unavailable MAYRA CORTEZ MD Attending Unavailable MAYRA CORTEZ MD Admitting Unavailable MAYRA CORTEZ MD Primary Care Unavailable MAYRA CORTEZ MD Attending Unavailable MAYRA CORTEZ MD Admitting Unavailable Allergies Allergy Classification Reported Allergen(s) Allergy Type Date of Onset Reaction(s) Facility Latex (5 sources) Latex Substance Allergy 5 Rash [facility] Penicillins (antibiotic) (4 sources) Amoxicillin Drug Allergy 0 Diarrhea [facility] Work Phone: pregabalin (5 sources) pregabalin Drug Allergy 5 Other (See Comments) [facility] rOPINIRole (5 sources) rOPINIRole Drug Allergy 5 Anaphylaxis [facility] (20 sources) Latex; Translations: [Latex] Allergy to substance (disorder) 1 Sensitive Skin [facility] (20 sources) pregabalin; Translations: [Lyrica] Drug Allergy Sucidal thoughts [facility] (20 sources) rOPINIRole; Translations: [Requip] Drug Allergy anaphylaxis [facility] (2 sources) -No Known Food Allergies Allergy to substance (disorder) [facility] (20 sources) Molds/Fungal; Translations: [Molds/Fungal] Allergy to substance (disorder) Can not function [facility] (20 sources) Pollens (tree, grass, weeds); Translations: [Pollens (tree, grass, weeds)] Allergy to substance (disorder) motion sickness [facility] (16 sources) Amoxicillin Drug Allergy 0 Diarrhea [facility] Work Phone: (1 source) Mold; Translations: [MOLD EXTRACTS] Propensity to adverse reactions to drug (disorder) [facility] Rep[facility] (1 source) natural latex rubber; Translations: [LATEX, NATURAL RUBBER] Propensity to adverse reactions to drug (disorder) [facility] (20 sources) pregabalin; Translations: [PREGABALIN] Drug Allergy 1 Anxiety [facility] (20 sources) rOPINIRole; Translations: [ROPINIROLE] Drug Allergy 1 Swelling, Anaphylaxis [facility] (1 source) WEED POLLEN-SHORT RAGWEED; Translations: [WEED POLLEN-SHORT RAGWEED] Propensity to adverse reactions to drug (disorder) [facility] (2 sources) Mold Extract Drug Allergy 4 PT UNSURE OF REACTION [facility] (1 source) Mold Extract Drug Allergy 5 [facility] Repository Medications Current Medications Medication Drug [...] Start: 07-16-2018 End: 07-16-2018 VENTOLIN HFA 90MCG/ACTUAT ND SC 07/16/2018 - 07/16/2018 Provider: Start: 01-20-2018 [...] ALBUTEROL SULFATE 2.5 mg/3 M L (0.0 [facility] 12/30/2016 - 12/30/2016 Provider: Start: 12-28-2016 albuterol [...] ALBUTEROL SULFATE 2.5 mg /3 ML (0.0 [facility] 10/01/2016 - 05/20/2020 Provider: Start: 10-01-2016 End: 10-01-2016 ALBUTEROL SULFATE 2.5 mg /3 ML (0.0 [facility] 10/01/2016 - 10/01/2016 Provider: Start: 10-01-2016 End: 10-01-2016 ALBUTEROL SULFATE 2.5 mg/3 M L (0.0 [facility] 10/01/2016 - 10/01/2016 Provider: take 2 puff(s) [...] Tablet (5 sources) Start: 10-25-2020 Amino Acids Co mplex Oral Tablet 10/25/2020 Provider: Maty Love CNP atorvastatin 40 mg oral tablet (2 sources) HMG-CoA Reductase Inhibitor Start: 01-03-2021 End: 05-03-2021 Atorvastatin Calcium 40 MG Oral Tablet 01/03/2021 - 05/03/2021 Provider: Shazia Bhatti CNP azelastine hydrochloride 0.137 mg/actuat metered dose nasal spray (20 sources) Histamine-1 Receptor Antagonist Start: 07-21-2018 End: 08-18-2019 Azelastine HCl 137 MCG/SPRAY Nasal Solution 08/18/2019 Provider: Maty Love CNP Start: 07-16-2018 End: 05-20-2020 AZELASTINE 137 mcg (0.1 %) [facility] 07/16/2018 - 05/20/2020 Provider: Start: 07-16-2018 End: 07-16-2018 AZELASTINE 137 mcg (0.1 %) [facility] 07/16/2018 - 07/16/2018 Provider: Start: 07-16-2018 End: 07-16-2018 AZELASTINE 137 mcg(0.1 %) [facility] 07/16/2018 - 07/16/2018 Provider: Start: 11-04-2015 take [...] Oral Tablet 08/23/2020 Provider: Maty Love CNP Budesonide-Glycopyr -Formoterol (1 source) Corticosteroid, beta2-Adrenergic Agonist Start: 2024 Tcesvwiyas-Vwnzdvfu-Qgqayyi rol (Breztri Aerosphere) 160-9-4.8 mcg/actuation HFA aerosol inhaler Active 2 NMA INHALATION TWICE A DAY August 07, 2024 1:00am buprenorphine 0.6 mg buccal film (20 sources) [...] Provider: Start: 07-16-2018 End: 07-16-2018 BUTRANS 15MCG/HOUR [facility] 06/22 - 07/16/2018 Provider: Butrans 15 mcg/h our transdermal patch weekly apply 1 patch (15 mcg/hour) by transdermal route every 7 days cephalexin 500 mg oral capsule (17 sources) Cephalosporin Antibacterial Start: 08-08-2024 take 1 capsule by mouth twice daily Cephalexin 500 mg capsule Active 500 mg PO TWICE A DAY 6 3 0 August 08, 2024 1:00am Start: 11-27-2019 End: 01-23-2020 Keflex 500 MG Oral Capsule 0 11/27/2019 - 01/23/2020 Provider: Maty Love CNP cetirizine hydrochloride 10 mg oral tablet (20 [...] mg MISC 12/28/2014 - 12/28/2014 Provider: cholecalciferol 0.125 mg oral capsule (20 sources) Vitamin D Start: 08-07-2024 take 1 capsule by mouth once daily Cholecalciferol (Vitamin D3) 125 mcg (5,000 unit) capsule Active 125 ug PO DAILY August 07, 2024 1:00am Start: 09-30-2020 Vitamin D-3 25 MCG (1000 UT) Oral Capsule 09/30/2020 Provider: Maty Love CNP Start: 09-13-2018 End: 09-30-2020 Vitamin D3 5000UNIT Oral Tab let 02/23/2019 - 05/06/2019 Provider: Shazia Bhatti NITROGEN OPERATOR Start: 09-13-2018 Vitamin D3 500 0UNIT Oral Tablet 09/13/2018 Provider: Shazia Stevens NITROGEN OPERATOR Start: 09-03-2017 End: 01-15-2019 take 5000 [IU] [...] apsule 11/04/2018 - 10/04/2019 Provider: Cindy Lopes NITROGEN OPERATOR Start: 07-16-2018 End: 05-20-2020 DOCUSATE SODIUM 100 [...] SODIUM 100MG MISC 05/09/2015 - 05/09/2015 Provider: fexofenadine hydrochloride 180 mg oral tablet (3 sources) Histamine-1 Receptor Antagonist Start: 08-07-2024 take 1 tablet by mouth once daily Fexofenadine (Allergy Relief (Fexofenadine)) 180 mg tablet Active 180 mg PO DAILY August 07, 2024 1:00am Start: 12-19-2014 End: 12-28-2014 take 1 tablet by mouth once daily Sri Allergy 180 mg oral tablet 12/19/2014 12/28/2014 take 1 tablet (180 mg) by oral route once daily FLUoxetine 40 mg oral capsule (20 sources) Serotonin Reuptake Inhibitor Start: 08-07-2024 take 1 capsule by mouth at bedtime Fluoxetine 20 mg capsule Active 20 mg PO AT BEDTIME August 07, 2024 1:00am Start: 08-07-2024 take 1 capsule by mo uth once daily Fluoxetine 40 mg capsule Active 40 mg PO DAILY August 07, 2024 1:00am Start: 07-04-2020 End: 12-01-2020 FLUoxetine HCl 20 MG Oral Ca psule 12/01/2020 Provider: Shazia Bhatti CNP Start: 01-06-2019 [...] Start: 10-19-2014 End: 05-20-2020 PROZAC 20 [facility] 10/19[facility]2014 - 05/20/2020 Provider: Start: 10-19-2014 End: 10-19-2014 PROZAC 20 MG [facility] 10/19/2014 - 10/19/2014 Provider: Start: 10-19-2014 End: 10-19-2014 PROZAC 20MG [facility] 10/19/2014 - 10/19/2014 Provider: fluticasone propionate 0.05 mg/actuat metered dose nasal spray (20 sources) Corticosteroid Start: 08-07-2024 Fluticasone Pr opionate 50 mcg/actuation spray,suspension Active 1 NMA INTRANASAL DAILY August 07, 2024 1:00am Start: 08-18-2019 Flonase Allerg y Relief 50 [...] 50MCG/ACTUAT MIS C 05/09/2015 - 05/09/2015 Provider: folic acid 1 mg oral tablet (1 source) Start: 08-07-2024 take 1 tablet by mouth once daily Folic Acid 1 mg tablet Active 1 mg PO DAILY August 07, 2024 1:00am gabapentin 800 mg oral tablet (20 sources) Anti-epileptic Agent Start: 08-07-2024 take 1 tablet by mouth four times daily Gabapentin 800 mg tablet Active 800 mg PO 4 TIMES DAILY August 07, 2024 1:00am Start: 01-06-2018 take 1600 mg by mout h twice daily Gabapentin Active 1600 MG PO [...] Start: 06-30-2019 take 1 tablet by jason th twice daily as needed, then take 1 tablet by mouth every twelve hours as needed Guaifenesin (Mucinex) 600 MG tablet extended release 12hr Active 600 MG PO Twice Daily as needed June 30, 2019 12:00am Start: 10-06-2018 End: 11-26-2020 Mucinex 600 MG Oral Tablet E xtended Release 12 Hour 05/08/2019 - 09/09/2019 Provider: Cindy Lopes CNP Start: 01-20-2018 End: 05-20-2020 MUCINEX 600 MG [facility] 01/21/20 - 05/20/2020 Provider: Start: 01-20-2018 End: [...] 08-11-2016 End: 08-11-2016 MUCINEX 600 MG MISC 08/11/1908/11/2016 Provider: Start: 08-11-2016 End: 08-11-2016 MUCINEX 600MG [...] capsule (20 sources) Proton Pump Inhibitor Start: 08-07-2024 take 1 capsule by mouth once daily before breakfast Omeprazole 40 mg capsule,delayed release(DR/EC) Active 40 mg PO DAILY August 07, 2024 1:00am TAKE BEFORE BREAKFAST Start: 03-07-2018 End: 09-30-2020 take 40 mg by mouth once daily Omeprazole Active 40 MG PO Daily March 06, 2018 11:00pm Start: 01-20-2018 take 1 capsule by [facility] once daily before mealtime omeprazole 40 mg oral capsule,delayed release(DR/EC) 01/20/2018 take 1 capsule (40 mg) by oral route once daily before a meal Start: 01-20-2018 End: 11-04-2018 Omeprazole 40 MG OR CPDR 01/20/2018 - 11/04/2018 Provider: Start: 02-02-2017 take 1 capsule by [facility] once daily omeprazole (PRILOSEC) 20 MG delayed [...] Start: 10-04-2017 End: 05-20-2020 ONDANSETRON 4 mg [facility] 2017 - 05/20/2020 Provider: Start: 10-04-2017 End: 10-04-2017 ONDANSETRON 4 mg [facility] 2017 - 10/04/2017 Provider: Start: 04-14-2017 End: 05-20-2020 ONDANSETRON 4 mg [facility] 2016 - 05/20/2020 Provider: Start: 04-14-2017 End: 04-14-2017 ONDANSETRON 4 mg [facility] 2016 - 04/14/2017 Provider: Start: 02-16-2017 End: [...] 09-09-2016 End: 05-20-2020 ZOFRAN ODT 4 MG [facility] - 05/20/2020 Provider: Start: 09-09-2016 End: 09-09-2016 ZOFRAN ODT 4 MG [facility] 017 - 09/09/2016 Provider: Start: 09-09-2016 End: 09-09-2016 ZOFRAN ODT 4MG [facility] 09/10/19 17 - 09/09/2016 Provider: oseltamivir 75 mg oral capsule (1 source) Neuraminidase Inhibitor Start: 08-08-2024 take 1 capsule by mouth twice daily Oseltamivir 75 mg Capsule Active 75 mg PO TWICE A DAY 6 3 0 August 08, 2024 1:00am microencapsulated potassium chloride 20 meq extended release oral tablet (20 sources) Start: 08-07-2024 take 1 tablet by mouth once daily Potassium Chloride 20 mEq tablet,ER particles/adan ls Active 20 meq PO DAILY August 07, 2024 1:00am Start: 08-29-2020 End: 09-30-2020 Potassium Chloride ER 20 MEQ Oral Tablet Extended Release 09/30/2020 Provider: Maty Love NITROGEN OPERATOR Start: 07-21-2018 End: 02-21-2020 Potassium Chloride Maame ER 2 0MEQ Oral Tablet Extended Release 02/15/2019 - 02/10/2020 Provider: Cindy Lopes NITROGEN OPERATOR Start: 01-20-2018 take 1 tablet by jason th once daily at mealtime potassium chloride 20 mEq oral tablet extended release 01/20/2018 take 1 tablet (20 meq) by oral route once daily with food for 30 days Start: 01-20-2018 End: 05-20-2020 POTASSIUM CHLORIDE 20 mEq ND SC 01/20/2018 - 05/20/2020 Provider: Start: 01-20-2018 End: 01-20-2018 POTASSIUM CHLORIDE 20 mEq ND SC 01/20/2018 - 01/20/2018 Provider: Start: 01-06-2018 take 20 mEq by mouth once bryon y Potassium Chloride Active 20 MEQ PO Daily January 05, 2018 11:00pm Start: 02-04-2017 End: 05-20-2020 POTASSIUM CHLORIDE 20 mEq ND SC 02/04/2017 - 05/20/2020 Provider: Start: 02-04-2017 End: 02-04-2017 POTASSIUM CHLORIDE 20 mEq ND SC 02/04/2017 - 02/04/2017 Provider: Start: 12-14-2016 End: 05-20-2020 POTASSIUM CHLORIDE 20 mEq ND SC 12/14/2016 - 05/20/2020 Provider: Start: 12-14-2016 End: 12-14-2016 POTASSIUM CHLORIDE 20 mEq ND SC 12/14/2016 - 12/14/2016 Provider: Start: 11-02-2016 End: 05-20-2020 POTASSIUM CHLORIDE 20 mEq ND SC 11/02/2016 - 05/20/2020 Provider: Start: 11-02-2016 End: 11-02-2016 POTASSIUM CHLORIDE 20 mEq ND SC 11/02/2016 - 11/02/2016 Provider: Start: 10-19-2016 End: 03-01-2018 take 1 tablet by mouth once daily at mealtime potassium chloride 20 mEq oral tablet extended release 10/19/2016 take 1 tablet (20 meq) by oral route once daily with food Start: 10-19-2016 End: 05-20-2020 POTASSIUM CHLORIDE 20 mEq ND SC 10/19/2016 - 05/20/2020 Provider: Start: 10-19-2016 End: 10-19-2016 POTASSIUM CHLORIDE 20 mEq ND SC 10/19/2016 - 10/19/2016 Provider: take 20 mEq by mouth twice daily potassium chloride (KLOR-CON) 20 MEQ packet Take 20 mEq by mouth 2 times daily 0 Active Probiotic Oral Capsule (4 sources) Start: 10-28-2020 Probiotic Oral Capsule 10/28/2020 Provider: Shazia Bhatti CNP Probiotic-10 Oral Capsule (20 sources) Start: 02-20-2019 Probiotic-10 O ral Capsule 02/20/2019 Provider: Cindy Lopes CNP Start: 07-21-2018 End: 10-20-2019 Probiotic-10 Oral Capsule - 10/20/2019 Provider: Start: 07-21-2018 Probiotic-10 O ral Capsule 07/21/2018 Provider: Roflumilast (1 source) Phosphodiesterase 4 Inhibitor Start: 08-07-2024 take 1 tablet by mouth once daily Roflumilast 500 mcg tablet Active 500 ug PO DAILY August 07, 2024 1:00am saccharomyces boulardii 250 mg oral capsule (1 source) Start: 08-07-2024 take 1 capsule by mouth once daily Saccharomyces Boulardii (Probiotic (S.Boulardii)) 250 mg capsule Active 250 mg PO DAILY August 07, 2024 1:00am sucralfate 1000 mg oral tablet (20 sources) Aluminum Complex Start: 08-07-2024 take 1 tablet by mouth once daily Sucralfate 1 gram tablet Active 1 g PO DAILY August 07, 2024 1:00am Start: 09-10-2020 take 1 tablet by jason th once daily Sucralfate (Carafate) 1 gram Tablet Active 1 GM PO Daily September 10, 2020 12:00am Start: 02-15-2019 End: 05-04-2020 Sucralfate 1 GM Oral Tablet 09/12/2019 - 04/26/2020 Provider: Shazia Bhatti CNP Start: 07-21-2018 End: 01-06-2019 Sucralfate 1GM Oral Tablet 07/21/2018 - 01/06/2019 Provider: Start: 02-11-2018 End: 05-20-2020 SUCRALFATE 1 GRAM MISC 02/11 - 05/20/2020 Provider: Start: 02-11-2018 End: 02-11-2018 SU[facility]AL[facility]ATE 1 GRAM [facility] 02/11 - 02/11/2018 Provider: Start: 02-11-2018 End: 02-11-2018 SUCRALFATE 1GRAM [facility] 2017 - 02/11/2018 Provider: Start: 01-20-2018 take 1 tablet by jason th four times daily 1 hour(s) before bedtime Carafate 1 gram oral tablet 01/20/2018 take 1 tablet (1 gram) by oral route 4 times per day on an empty stomach 1 hour before meals and at bedtime Start: 01-20-2018 End: 05-20-2020 CARAFATE 1 GRAM [facility] - 05/20/2020 Provider: Start: 01-20-2018 End: 01-20-2018 CARAFATE 1 GRAM [facility] - 01/20/2018 Provider: Start: 01-20-2018 End: 01-20-2018 CARAFATE 1GRAM [facility] 01/21/20 18 - 01/20/2018 Provider: Start: 02-02-2017 take 1 tablet by jason th four times daily sucralfate (CARAFATE) 1 GM tablet Take 1 tablet by mouth 4 times daily 120 tablet 0 02/02/2017 Active tiZANidine 4 mg oral tablet (20 sources) Central alpha-2 Adrenergic Agonist Start: 08-07-2024 take 1 tablet by mouth three times daily as needed Tizanidine 4 mg tablet Active 4 mg PO THREE TIMES A DAY as needed for muscle spasticity August 07, 2024 1:00am Start: 07-21-2018 take 4 mg by mouth t hree times daily as needed Tizanidine Active 4 MG PO Three Times Daily as needed June 30, 2019 12:00am Start: 07-16-2018 End: 05-20-2020 TIZANIDINE 4 MG [facility] - 05/20/2020 Provider: Start: 07-16-2018 End: 07-16-2018 TIZANIDINE 4 MG [facility] - 07/16/2018 Provider: Start: 07-16-2018 End: 07-16-2018 TIZANIDINE 4MG [facility] 07/16/19 - 07/16/2018 Provider: take 2 tablets by mo uth at bedtime tizanidine 4 mg oral tablet [...] MG/ ML IJ SUSP 03/04/2021 Noemi Givens NITROGEN OPERATOR Start: 03-04-2021 Kenalog 10 MG/ ML IJ [...] EACH PO Daily July 06, 2018 12:00am Vitamin B Complex capsule (1 source) Start: 08-07-2024 Vitamin B Comp aliyah capsule Active 1 NMA PO DAILY August 07, 2024 1:00am Vitamin-B Complex Oral Table t (20 sources) [...] TEARS 1-0.2-0.2% MISC 07/16/2018 - 07/16/2018 Provider: atropine sulfate 0.025 mg / diphenoxylate hydrochloride 2.5 mg oral tablet (2 sources) Anticholinergic, Cholinergic Muscarinic Antagonist, Antidiarrheal Start: 07-28-2023 End: 08-07-2024 Diphenoxylate-Atropine (Lomotil) 2.5-0.025 mg tablet Discontinued 1 {tbl} PO THREE TIMES A DAY as needed for diarrhea 15 5 0 July 28, 2023 8:56am August 07, 2024 7:20pm Nausea, vomiting, and diarrhea Nausea with vomiting, unspecified Diarrhea, unspecified azithromycin 250 mg oral tablet (15 sources) Macrolide Antimicrobial Start: 01-24-2021 End: 03-04-2021 Azithromycin 250 MG Oral Tablet 01/24/2021 - 03/04/2021 Provider: Noemi Givens NITROGEN OPERATOR Start: 11-26-2020 End: 12-01-2020 Azithromycin 250 MG Oral Tab let 11/26/2020 - 12/01/2020 Provider: Shazia Bhatti NITROGEN OPERATOR Start: 09-07-2020 End: 09-19-2020 Zithromax 250 MG [...] oral solution (2 sources) alpha-Adrenergic Agonist, Uncompetitive W-femszg-Q-aspartate Receptor Antagonist, Sigma-1 Agonist Start: 12-19-2014 End: [...] 1-15-5MG/5 ML MISC 12/19/2014 - 12/19/2014 Provider: BROTAPP DM 1-15-5MG/5 ML MISC (3 sources) Start: 12-19-2014 End: 12-19-2014 BROTAPP DM 1-15-5MG/5 ML MISC 12/19/2014 - 12/19/2014 Provider: 60 actuat budesonide 0.16 mg/actuat / formoterol fumarate [...] 1 GM IJ SOLR 07/13/2019 Cindy Lopes CNP Comment on above: Patient tolerated th erapy well. No signs or symptoms of adverse reactions. CHLORHEX GLU KELLY 0.12% MISC (20 sources) [...] 20 mg/ml oral solution (2 sources) Uncompetitive A-dpdnpw-K-aspartate Receptor Antagonist, Sigma-1 Agonist Start: 10-01-2016 take 10 mL by mouth every four hours as needed Tussin DM 10-100 mg/5 mL oral syrup 10/01/2016 take 10 milliliters by oral route every 4 hours as needed for coiuiugh dextromethorphan hydrobromide 3 mg/ml / promethazine hydrochloride 1.25 mg/ml oral solution (20 sources) Phenothiazine, Uncompetitive A-hznkmr-C-aspartate Receptor Antagonist, Sigma-1 Agonist Start: 07-13-2019 End: [...] 10-30-2014 End: 10-30-2014 ERGOCALCIFEROL (VITAMIN D2) 50,000UNIT MISC 10/30/2014 - 10/30/2014 Provider: ERGOCALCIFEROL (VITAMIN D2) 50,000 UNIT MISC (17 sources) Start: 10-30-2014 End: 10-30-2014 ERGOCALCIFEROL (VITAMIN D2) 50,000 UNIT MISC 10/30/2014 - 10/30/2014 Provider: ERGOCALCIFEROL (VITAMIN D2) 50,000 UNIT MISC (5 sources) Start: 10-30-2014 End: 05-20-2020 ERGOCALCIFEROL (VITAMIN D2) 50,000 UNIT MISC 10/30/2014 - 05/20/2020 Provider: 72 hr fentaNYL 0.0375 mg/hr transdermal system (20 sources) Opioid Agonist Start: 01-06-2019 End: 08-18-2019 fentaNYL 37.5MCG/HR Transdermal Patch 72 Hour 01/06/2019 - 08/18/2019 Provider: Start: 07-16-2018 End: 05-20-2020 FENTANYL PATCH MISC 07/16/19 - 05/20/2020 Provider: Start: 07-16-2018 End: 07-16-2018 FENTANYL PATCH MISC 07/16/19 - 07/16/2018 Provider: fentaNYL (DURAGE SIC) 25 MCG/HR Place 1 patch onto the skin every 72 hours . 0 Active End: 01-20-2018 fentanyl patch 01/20/2018 1 pa tch every 3 days FLAXSEED OIL 1,000 MG MISC (17 sources) [...] (2 sources) Start: 11-22-[address] misc 11/22/2015 use as directed. Duration= 5 year [...] 07-21-2018 End: 10-29-2020 Handicap Placard XX 07/21/19 19 - 10/29/2020 Provider: Start: 07-21-2018 Handicap Placa [...] End: 05-20-2020 VISTARIL 50 MG MISC 07/16/19 - 05/20/2020 Provider: Start: 07-16-2018 End: [...] 10-30-2014 End: 05-20-2020 VISTARIL 50 MG MISC 0505/20/2020 Provider: Start: 10-30-2014 End: 10-30-2014 VISTARIL 50 MG MISC 10/31/1910/30/2014 Provider: Start: 10-30-2014 End: 10-30-2014 VISTARIL 50MG MISC 10/30/2014 Provider: 2 ml ketorolac tromethamine 30 mg/ml prefilled syringe (20 sources) Nonsteroidal Anti-inflammatory Drug, Cyclooxygenase Inhibitor Start: 07-13-2019 Ketorolac Tromethamine 60 MG/2ML IM SOLN 07/13/2019 Cindy Walkerkadi NITROGEN OPERATOR Start: 02-05-2017 End: 10-21-2017 take 1 tablet by mouth every six hours as needed ketorolac 10 mg oral tablet 02/05/2017 10/21/2017 take 1 tablet (10 mg) by oral route every 6 hours as needed for up to 5 days total use Start: 02-05-2017 End: 05-20-2020 KETOROLAC 10 MG MISC 05/20/2020 Provider: Start: 02-05-2017 End: 02-05-2017 KETOROLAC 10 MG MISC - 02/05/2017 Provider: Start: 02-05-2017 End: 02-05-2017 KETOROLAC 10MG MISC 02/06/2002/05/2017 Provider: Start: 01-22-2017 End: 05-20-2020 KETOROLAC 10 MG MISC 05/20/2020 Provider: Start: 01-22-2017 End: 01-22-2017 KETOROLAC 10 MG MISC - 01/22/2017 Provider: Start: 01-22-2017 End: 01-22-2017 KETOROLAC 10MG MISC 01/23/2001/22/2017 Provider: Comment on above: Patient tolerated th [...] Tablet 07/17/2019 - 08/18/2019 Provider: Cindy Lopes CNP Start: 12-30-2016 End: 05-20-2020 Levaquin 500MG OR TABS 12/30 - 12/30/2016 Provider: lidocaine hydrochloride 10 mg/ml injectable solution (20 sources) Antiarrhythmic, Amide Local Anesthetic Start: 07-13-2019 Xylocaine 1% IJ SOLN 07/13/2019 Cindy Lopes CNP Start: 07-03-2015 End: 10-21-2017 Lidocaine Viscous 2 [...] 80 MG/ML IJ SUSP 07/22/2018 Cindy Lopes NITROGEN OPERATOR Comment on above: Patient tolerated th erapy [...] Start: 06-03-2015 End: 05-20-2020 [facility] - 05/20/2020 Provider: Start: 06-03-2015 End: [...] 05-02-2015 End: 05-20-2020 NAPROXEN 375 mg MISC - 05/20/2020 Provider: Start: 05-02-2015 End: 05-02-2015 [...] 09-09-2016 End: 05-20-2020 predniSONE 20MG OR TABS 07/2017 - 01/20/2018 Provider: Probiotic (4 sources) Start: [...] times a day PROBIOTIC 10 billion CELL ND SC (20 sources) Start: 01-24-2018 End: 01-24-2018 PROBIOTIC 10 billion CELL ND SC 01/24/2018 - 01/24/2018 Provider: PROBIOTIC 10 billion CELL ND SC (10 sources) Start: 01-24-2018 End: 05-20-2020 PROBIOTIC 10 billion CELL ND SC 01/24/2018 - 05/20/2020 Provider: PROBIOTIC 10 [...] Provider: promethazine hydrochloride 12.5 mg oral tablet (2 sources) Phenothiazine Start: 07-28-2023 End: 08-07-2024 take 1 tablet by mouth three times daily as needed for nausea and vomiting Promethazine 12.5 mg tablet Discontinued 12.5 mg PO THREE TIMES A DAY as needed for nausea and vomiting 21 0 July 28, 2023 8:55am August 07, 2024 7:20pm 12 hr pseudoePHEDrine hydrochloride 120 mg extended [...] Provider: 0.65 ml varicella-zoster virus vaccine live ([facility]) strain [id number] unt/ml injection (2 sources) Start: 05-09-2015 End: [...] 05/20/2020 Provider: VITAMIN D3 COMPLETE 18 mg [id number] MG MISC (8 sources) Start: 09-01-2017 End: 09-01-2017 VITAMIN D3 COMPLETE 18 mg [id number] MG MISC 09/01/2017 - 09/01/2017 Provider: Start: 04-14-2017 End: 04-14-2017 VITAMIN D3 COMPLETE 18 mg ir [id number] MG MISC 04/14/2017 - 04/14/2017 Provider: VITAMIN D3 COMPLETE 18 mg [id number] MG MISC (6 sources) Start: 09-01-2017 End: 09-01-2017 VITAMIN D3 COMPLETE 18 mg [id number] MG MISC 09/01/2017 - 09/01/2017 Provider: Start: 04-14-2017 End: 04-14-2017 VITAMIN D3 COMPLETE 18 mg ir [id number] MG MISC 04/14/2017 - 04/14/2017 Provider: Problems [...] (10 sources) Hyperlipidemia; Translations: [Hyperlipidemia, unspecified] Chronic E Codes: Fall (1 source) Fall; Translations: [Unspecified fall, initial encounter] 12-15-2024 Episodic Esophageal disorders (20 sources) Gastroesophageal reflux disease; Translations: [Esophageal reflux] Onset: 7 Chronic Essential hypertension (4 sources) Unspecified essential hypertension Onset: 7 Chronic Heart valve disorders (10 sources) Aortic valve regurgitation; Translations: [Nonrheumatic aortic (valve) insufficiency] Chronic Intestinal infection (20 sources) Viral gastroenteritis due to [place]-like agent; Translations: [Enteritis due to Norovirus] Onset: 9 09-30-2018 Episodic Mood disorders (20 sources) Depressive disorder, not elsewhere classified; Translations: [Depressive disorder] Onset: 5 Chronic Noninfectious gastroenteritis (18 sources) Enteritis of small intestine; Translations: [Noninfective gastroenteritis and colitis, unspecified] 09-26-2018 Episodic Nutritional deficiencies (20 sources) Unspecified vitamin D deficiency; Translations: [Vitamin D deficiency] Onset: 5 Chronic Other aftercare (1 source) 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 terminal 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; Translations: [Other intermediate (current) drug therapy] Onset: 5 Episodic Other connective tissue disease (19 sources) Fibromyalgia; Translations: [Fibromyalgia] 10-14-2022 Episodic Other fractures (1 source) Closed fracture of coccyx; Translations: [Fracture of coccyx, initial encounter for closed fracture] 12-15-2024 Episodic Other gastrointestinal disorders (6 sources) Irritable bowel syndrome; Translations: [Irritable bowel syndrome] Onset: 7 Chronic Other gastrointestinal disorders (15 sources) Irritable bowel syndrome without diarrhea; Translations: [Irritable bowel syndrome without diarrhea] Onset: 5 Chronic Other gastrointestinal disorders (5 sources) Diarrhea; Translations: [Slow transit constipation] Onset: 7 Episodic Other injuries and conditions due to external causes (1 source) Unspecified injury of pelvis, initial encounter; Translations: [Unspecified injury of pelvis, initial encounter] Onset: 5 Episodic Other lower respiratory disease (20 sources) [...] pain syndrome] Onset: 6 10-11-2015 Chronic Other nervous system disorders (1 source) Polyneuropathy, unspecified; Translations: [Polyneuropathy, unspecified] Onset: 5 Chronic Other nutritional; endocrine; and [...] Onset: 7 Respiratory failure; insufficiency; arrest (adult) (2 sources) Dependence on supplemental oxygen; Translations: [Dependence on supplemental oxygen] Onset: 5 08-16-2024 Chronic Substance-related disorders (20 sources) Tobacco use [...] index; Translations: [Body Mass Index] Onset: 7 Past or Other Problems Problem Classification Problem [...] unspecified; Translations: [Fever symptoms] Onset: 07-22-2018 Episodic Fluid and electrolyte disorders (20 sources) Dehydration; Translations: [Dehydration] Onset: 03-20-2024 09-30-2018 Episodic Genitourinary symptoms and ill-defined conditions (20 sources) Hematuria, unspecified; Translations: [Blood in urine] Onset: 09-09-2016 Episodic Immunizations and screening for infectious disease (20 sources) Other specified vaccinations against streptococcus pneumoniae [pneumococcus]; Translations: [Need for prophylactic vaccination and inoculation against influenza] Onset: 05-09-2015 Episodic Influenza (2 sources) Influenza due to Influenza A virus; Translations: [Influenza due to other identified influenza virus with other respiratory manifestations] Onset: 08-14-2024 08-07-2024 Episodic Malaise and fatigue (20 sources) Other malaise and fatigue; Translations: [Fatigue] Onset: 01-22-2017 Episodic Medical examination/evaluation (20 sources) Dental examination Onset: 12-27-2014 Episodic Mood disorders (20 sources) Major depressive disorder, single episode, unspecified; Translations: [Major depressive disorder, single episode, unspecified] Onset: 10-30-2014 Nausea and vomiting (3 sources) Nausea, vomiting and diarrhea; Translations: [Nausea with vomiting, unspecified] Onset: 08-23-2024 07-28-2023 Episodic Nonmalignant breast conditions (14 sources) Lump or [...] in leg, unspecified] Onset: 11-11-2016 Episodic Other connective tissue disease (4 sources) Fibromyalgia; Translations: [Myalgia and myositis, unspecified] Onset: 08-14-2024 Episodic Other gastrointestinal disorders (20 sources) Diarrhea, [...] For S.o.a.p. Note Free Text]] Onset: 08-11-2018 Urinary tract infections (20 sources) Acute cystitis; Translations: [Acute cystitis] Onset: 11-06-2014 08-07-2024 Episodic Viral infection (20 sources) Viral disease; Translations: [Verruca vulgaris] Onset: 10-06-2018 Episodic Results Test Name Value Interpretation Reference Range Facility Emergency Department Summary on 12-15-2024 Emergency Department Summary [facility] Medical Records Department [address] [place] [address] Emergency Department Summary 12/15/24 MR#: [id number] Acct: [id number] Name: WILBERT JOHNSON Rep #: [id number] : 1960 64 From: Sky Lin MD PCP: Dr. Mayra Cortez MD Status:[facility] ER Location: ED HPI HPI - Fall History of Present Illness Chief Complaint: Lower Extremity Injury Informant: patient Occured/Mechanism Occurred: Weeks Mechanism/Context: Yes same level fall Usually ambulates: Without assistance Pain/Injury Pain Location: pelvis Quality of Pain: Dull and Aching Current Severity: Mild Maximum Severity: Moderate Associated Symptoms Associated Symptoms: Negative for Parasthesias, Weakness, Loss of function, Inability to ambulate, Loss of consciousness or Amnesia Narrative Narrative: 64-year-old female past medical history of fibromyalgia and COPD. Was getting off off the chair 2 to 3 weeks ago. Said a chair kicked out from under she landed flat on her buttocks injuring her tailbone pelvis and left hip. Said the pain just become more annoying over the last several days that she came in [facility] to have it evaluated. She has not been seen for this before [facility]. She denies any head injury or other injuries. She is able to walk. Prior similar symptoms: No Recent Illness/Hospitalization: No [facility] Medical History Fibromyalgia COPD (chronic obstructive pulmonary disease) On home [...] cap PO DAILY 08/07/24 Unknown Hi story cephalexin 500 mg capsule 500 mg PO BID 3 days #6 caps 08/08 Unknown Rx oseltamivir 75 mg capsule 75 mg PO BID 3 days #6 caps Unknown Rx Allergy/AdvReac Type Severity Reaction Status Date / Time ropinirole (From Requip) Allergy Severe Anaphylaxis Verified 12/15/24 20:48 latex Allergy Mild Rash Verified 12/15/24 20:48 mold AdvReac PT UNSURE Verified 12/15/24 20:48 OF REACTION Surgical History H/O: hysterectomy History of appendectomy History of cholecystectomy Social History household members: family housing: house Smoking Status: Current every day smoker tobacco type: e-cigarettes ROS ROS ED ROS Narrative Denies recent illness. Constitutional Constitutional ED: Denies chills or fever(s) Eyes Eyes: Denies blurry vision ENT ENT ED: Denies ear pain Cardiovascular Cardiovascular: Denies chest pain Respiratory/Chest Respiratory/Chest: Denies cough or dyspnea Gastrointestinal Gastrointestinal: Denies abdominal pain Genitourinary Genitourinary ED: Denies dysuria or hematuria Musculoskeletal Musculoskeletal: Denies arthralgias Integumentary Denies abscess Neurologic Neurologic: Denies headache(s) Psychiatric Psychiatric: Denies anxiety or depression Endocrine Endocrinology: Denies polydipsia Hematologic/Lymphatic Hematologic/Lymphatic: Denies easy bleeding Allergic/Immunologic Allergic/Immunologic ED: Denies mouth swelling, tongue swelling or urticaria EXAM Physical Exam Narrative Exam Narrative: 64-year-old female. Sitting upright in bed. No acute distress. Family at bedside. Vital signs are stable afebrile. H EENT exam pupils round reactive light. No signs of trauma to her face or s calp. Nontender. (more content not included)... Normal [facility] Pelvis without IV Contraston 12-15-2024 Pelvis without IV Contrast [facility] Imaging Services [address] [place] [address] Pelvis without IV Contrast MR#: [id number] Acct: [id number] Name: WILBERT JOHNSON Rep #: [id number] : 1960 F 64 From: Jose Benson MD PCP: Dr. Mayra Cortez MD Status: REG ER Study: Pelvis without IV Contrast Date of Exam: 12/15 Exam# [id number] Ordering Dr: Sky Lin MD EXAM: CT Pelvis Without Intravenous Contrast CLINICAL INDICATION: FELL 2 WEEKS AGO. TAILBONE AND LEFT HIP PAIN TECHNIQUE: Axial computed tomography images of the pelvis without intravenous contrast. This CT exam was performed using one or more of the following dose reduction techniques: automated exposure control, adjustment of the mA and/or kV according to patient size, and/or use of iterative reconstruction technique. COMPARISON: No relevant prior studies available. FINDINGS: BOWEL: Unremarkable. No obstruction. No mucosal thickening. APPENDIX: No findings to suggest acute appendicitis. INTRAPERITONEAL SPACE: Unremarkable. No free air. No significant fluid collection. BLADDER: Unremarkable. No stones. REPRODUCTIVE: Unremarkable as visualized. BONES/JOINTS: Cortical irregularity and flattening of the coccyx could be a nondisplaced fracture. Multilevel endplate degenerative changes, facet arthropathy and disc disease of the visualized lumbar spine. No dislocation. SOFT TISSUES: Unremarkable. VASCULATURE: Unremarkable. No lower abdominal aortic aneurysm. LYMPH NODES: Unremarkable. No enlarged lymph nodes. CT/Pelvis without IV Contrast IMPRESSION: Cortical irregularity and flattening of the coccyx could be a nondisplaced fracture. Reading Location: [facility] CC: Dr. Sky Lin MD; Dr. Mayra Cortez MD Chef French: Signed Normal [facility] Urine Cultureon 08-09-2024 URC Mixed Gram Positive Organisms Bodega Count 50,000-80,000 MIXC Mixed contaminants. Submit a new specimen if indicated. Normal [facility] Comment on above: Performed By: #### M 100.2200 #### [facility] [address] [place], [place], [id number] Basic Metabolic Profile (BMP )on 08-08-2024 BUN/CRE 18.3 RATIO Normal 10-20 [facility] Comment on above: Performed By: #### L 500.2500, L100.0100 #### [facility] [address] [place], [address] CA,Total 8.5 mg/dL Normal 8.5-10.1 [facility] Comment on above: Performed By: #### L 500.2500, L100.0100 #### [facility] [address] [place], [address] Chloride [Moles/Vol] 102 mmol/L Normal 98-107 [facility] Comment on above: Performed By: #### L 500.2500, L100.0100 #### [facility] [address] [place], [address] CO2 [Moles/Vol] 28.0 mmol/L Normal 21.0-32.0 [facility] Comment on above: Performed By: #### L 500.2500, L100.0100 #### [facility] [address] [place], [address] Creatinine [Mass/Vol] 0.77 mg/dL Normal 0.55-1.[address] [facility] Comment on above: Result Comment: The validity of the calculated GFR GFRAA in patients over 70 years has not been determined. Clinical correlation is essential. Performed By: #### L 500.2500, L100.0100 #### [facility] [address] [place], [address] ECRCL 77.29 ml/min Normal [facility] Comment on above: Performed By: #### L 500.2500, L100.0100 #### [facility] [address] [place], [address] EST GFR - AA 97 mL/min Normal >60 [facility] Comment on above: Result Comment: Afri can Singaporean GFR Calc Performed By: #### L 500.2500, L100.0100 #### [facility] [address] [place], [address] GAP 6 Normal 5-15 [facility] Comment on above: Performed By: #### L 500.2500, L100.0100 #### [facility] [address] [place], [address] GFR/1.73 sq M.predicted among non-blacks MDRD (S/P/Bld) [Vol rate/Area] 80 mL/min/{1.73_m2} Normal >60 [facility] Comment on above: Result Comment: Non- GFR Calc Performed By: #### L 500.2500, L100.0100 #### [facility] [address] [place], [address] Glucose [Mass/Vol] 85 mg/dL Normal 74-106 [facility] Comment on above: Performed By: #### L 500.2500, L100.0100 #### [facility] [address] [place], [address] Potassium [Moles/Vol] 3.6 mmol/L Normal 3.5-5.[address] [facility] Comment on above: Performed By: #### L 500.2500, L100.0100 #### [facility] [address] [place], [address] Sodium [Moles/Vol] 136 mmol/L Normal 136-145 [facility] Comment on above: Performed By: #### L 500.2500, L100.0100 #### [facility] [address] [place], [address] Urea nitrogen [Mass/Vol] 14 mg/dL Normal 7-18 [facility] Comment on above: Performed By: #### L 500.2500, L100.0100 #### [facility] [address] [place], [address] CBC W/Diff, Automatedon 07-22 Absolute Lymph 2.24 X10 3/uL Normal 0.83-4.51 [facility] Comment on above: Performed By: #### L 500.2500, L100.0100 #### [facility] [address] [place], [address] Absolute Neut 2.2 X10 3/uL Normal 2.0-7.7 [facility] Comment on above: Performed By: #### L 500.2500, L100.0100 #### [facility] [address] [place], [address] Basophils/100 WBC (Bld) 0.5 % Normal 0-1 [facility] Comment on above: Performed By: #### L 500.2500, L100.0100 #### [facility] [address] [place], [address] Eosinophils/100 WBC (Bld) 0.2 % Normal 0-5 [facility] Comment on above: Performed By: #### L 500.2500, L100.0100 #### [facility] [address] [place], [address] Erythrocyte distribution width (RBC) [Ratio] 12.5 % Normal 11.6-14.6 [facility] Comment on above: Performed By: #### L 500.2500, L100.0100 #### [facility] [address] [place], [address] Hematocrit (Bld) [Volume fraction] 41.4 % Normal 37-47 [facility] Comment on above: Performed By: #### L 500.2500, L100.0100 #### [facility] [address] [place], [address] Hemoglobin (Bld) [Mass/Vol] 13.8 g/dL Normal 12.0-15.0 [facility] Comment on above: Performed By: #### L 500.2500, L100.0100 #### [facility] [address] [place], [address] IG% 0.200 Normal 0.0-0.9 [facility] Comment on above: Result Comment: IG% - Immature Granulocytes (promyelocytes, myelocytes and metamyelocytes) > 1% indicates that a LEFT SHIFT is Present. Performed By: #### L 500.2500, L100.0100 #### [facility] [address] [place], [address] Lymphocytes/100 WBC (Bld) 40.1 % Normal 19-41 [facility] Comment on above: Performed By: #### L 500.2500, L100.0100 #### [facility] [address] [place], [address] MCH (RBC) [Entitic mass] 30.0 pg Normal 27.0-32.0 [facility] Comment on above: Performed By: #### L 500.2500, L100.0100 #### [facility] [address] [place], [address] MCHC (RBC) [Mass/Vol] 33.3 g/dL Normal 32-[address] [facility] Comment on above: Performed By: #### L 500.2500, L100.0100 #### [facility] [address] [place], [address] MCV (RBC) [Entitic vol] 90.0 fL Normal 81-99 [facility] Comment on above: Performed By: #### L 500.2500, L100.0100 #### [facility] [address] [place], [address] Monocytes/100 WBC (Bld) 20.1 % High 0-10 [facility] Comment on above: Performed By: #### L 500.2500, L100.0100 #### [facility] [address] [place], [address] Neutrophils/100 WBC (Bld) 38.9 % Low 47-70 [facility] Comment on above: Performed By: #### L 500.2500, L100.0100 #### [facility] [address] [place], [address] Nucleated RBC (Bld) [#/Vol] 0 10*3/uL Normal 0-5 [facility] Comment on above: Performed By: #### L 500.2500, L100.0100 #### [facility] [address] [place], [address] Platelet mean volume (Bld) [Entitic vol] 10.0 fL Normal 6.2-12.0 [facility] Comment on above: Performed By: #### L 500.2500, L100.0100 #### [facility] [address] [place], [address] Platelets (Bld) [#/Vol] 248 10*3/uL Normal 150-450 [facility] Comment on above: Performed By: #### L 500.2500, L100.0100 #### [facility] [address] [place], [address] RBC (Bld) [#/Vol] 4.60 10*6/uL Normal 4.2-5.4 [facility] Comment on above: Performed By: #### L 500.2500, L100.0100 #### [facility] [address] [place], [address] RDW SD 41.1 fl Normal 35.1-43.9 [facility] Comment on above: Performed By: #### L 500.2500, L100.0100 #### [facility] [address] [place], [address] WBC (Bld) [#/Vol] 5.6 10*3/uL Normal 4.4-11.0 [facility] Comment on above: Performed By: #### L 500.2500, L100.0100 #### [facility] [address] [place], [address] Discharge Instructionon 07-22 Discharge Instruction [facility] Medical Records Department [address] [place] [address] Instructions for Home/Discharge Instructions 08/08/24 1054 MR#: [id number] Acct: [id number] Name: WILBERT JOHNSON Rep #: [id number] : 1960 64 From: Michael Raymundo DO [...] Provider: Mayra Cortez Consulting Providers: Julio Blake Instructions Additional Instructions / Restrictions: Take 3 more [...] can be placed): Home, Self Care 08/08/24 2656 Michael Raymundo DO CC: Dr. Julio Blake MD; Dr. Mayra Cortez MD Signed Normal [facility] CBC W/Diff, Automatedon 07-22 Absolute Lymph 1.24 X10 3/uL Normal 0.83-4.51 [facility] Comment on above: Performed By: #### L 100.0100 #### [facility] [address] [place], [address] Absolute Neut 4.2 X10 3/uL Normal 2.0-7.7 [facility] Comment on above: Performed By: #### L 100.0100 #### [facility] [address] [place], [address] Basophils/100 WBC (Bld) 0.3 % Normal 0-1 [facility] Comment on above: Performed By: #### L 100.0100 #### [facility] [address] [place], [address] Eosinophils/100 WBC (Bld) 0.0 % Normal 0-5 [facility] Comment on above: Performed By: #### L 100.0100 #### [facility] [address] [place], [address] Erythrocyte distribution width (RBC) [Ratio] 12.3 % Normal 11.6-14.6 [facility] Comment on above: Performed By: #### L 100.0100 #### [facility] [address] [place], [address] Hematocrit (Bld) [Volume fraction] 44.4 % Normal 37-47 [facility] Comment on above: Performed By: #### L 100.0100 #### [facility] [address] [place], [address] Hemoglobin (Bld) [Mass/Vol] 14.5 g/dL Normal 12.0-15.0 [facility] Comment on above: Performed By: #### L 100.0100 #### [facility] [address] [place], [address] IG% 0.300 Normal 0.0-0.9 [facility] Comment on above: Result Comment: IG% - Immature Granulocytes (promyelocytes, myelocytes and metamyelocytes) > 1% indicates that a LEFT SHIFT is Present. Performed By: #### L 100.0100 #### [facility] [address] [place] [address]. [place], [address] Lymphocytes/100 WBC (Bld) 18.4 % Low 19-41 [facility] Comment on above: Performed By: #### L 100.0100 #### [facility] [address] [place] [address]. [place], [address] MCH (RBC) [Entitic mass] 29.3 pg Normal 27.0-32.0 [facility] Comment on above: Performed By: #### L 100.0100 #### [facility] [address] [facility] [place], [address] MCHC (RBC) [Mass/Vol] 32.7 g/dL Normal 32-[address] [facility] Comment on above: Performed By: #### L 100.0100 #### [facility] [address] [place], [address] MCV (RBC) [Entitic vol] 89.7 fL Normal 81-99 [facility] Comment on above: Performed By: #### L 100.0100 #### [facility] [address] [place], [address] Monocytes/100 WBC (Bld) 18.2 % High 0-10 [facility] Comment on above: Performed By: #### L 100.0100 #### [facility] [address] [place], [address] Neutrophils/100 WBC (Bld) 62.8 % Normal 47-70 [facility] Comment on above: Performed By: #### L 100.0100 #### [facility] [address] [place], [address] Nucleated RBC (Bld) [#/Vol] 0 10*3/uL Normal 0-5 [facility] Comment on above: Performed By: #### L 100.0100 #### [facility] [address] [place], [address] Platelet mean volume (Bld) [Entitic vol] 9.9 fL Normal 6.2-12.0 [facility] Comment on above: Performed By: #### L 100.0100 #### [facility] [address] [place], [address] Platelets (Bld) [#/Vol] 259 10*3/uL Normal 150-450 [facility] Comment on above: Performed By: #### L 100.0100 #### [facility] [address] [place], [address] RBC (Bld) [#/Vol] 4.95 10*6/uL Normal 4.2-5.4 [facility] Comment on above: Performed By: #### L 100.0100 #### [facility] [address] [place], [address] RDW SD 40.3 fl Normal 35.1-43.9 [facility] Comment on above: Performed By: #### L 100.0100 #### [facility] [address] [place], [address] WBC (Bld) [#/Vol] 6.8 10*3/uL Normal 4.4-11.0 [facility] Comment on above: Performed By: #### L 100.0100 #### [facility] [address] [place], [address] Absolute Neut Normal 2.0-7.7 [facility] Comment on above: Result Comment: CLOT ANNMARIE, SPOKE WITH ION Performed By: #### L 501.3620, L501.5200, L500.4050, L100.0100 ####[facility] [address] [place], [address] HCT Normal 37-47 [facility] Comment on above: Result Comment: CLOT ANNMARIE, SPOKE WITH ION Performed By: #### L 501.3620, L501.5200, L500.4050, L100.0100 ####[facility] [address] [place], [address] HGB Normal 12.0-15.0 [facility] Comment on above: Result Comment: CLOT ANNMARIE, SPOKE WITH ION Performed By: #### L 501.3620, L501.5200, L500.4050, L100.0100 ####[facility] [address] [place], [address] MCH Normal 27.0-32.0 [facility] Comment on above: Result Comment: CLOT ANNMARIE, SPOKE WITH ION Performed By: #### L 501.3620, L501.5200, L500.4050, L100.0100 ####[facility] [address] [place], [address] MCHC Normal 32-36 [facility] Comment on above: Result Comment: CLOT ANNMARIE, SPOKE WITH ION Performed By: #### L 501.3620, L501.5200, L500.4050, L100.0100 ####[facility] [address] [place], [address] MCV Normal 81-99 [facility] Comment on above: Result Comment: CLOT ANNMARIE, SPOKE WITH ION Performed By: #### L 501.3620, L501.5200, L500.4050, L100.0100 ####[facility] [address] [place], [address] NEUT% Normal 47-70 [facility] Comment on above: Result Comment: CLOT ANNMARIE, SPOKE WITH ION Performed By: #### L 501.3620, L501.5200, L500.4050, L100.0100 ####[facility] [address] [place], [address] PLT Normal 150-450 [facility] Comment on above: Result Comment: CLOT ANNMARIE, SPOKE WITH ION Performed By: #### L 501.3620, L501.5200, L500.4050, L100.0100 ####[facility] [address] [place], [address] RBC Normal 4.2-5.4 [facility] Comment on above: Result Comment: CLOT ANNMARIE, SPOKE WITH ION Performed By: #### L 501.3620, L501.5200, L500.4050, L100.0100 ####[facility] [address] [place], [address] RDW CV Normal 11.6-14.6 [facility] Comment on above: Result Comment: CLOT ANNMARIE, SPOKE WITH ION Performed By: #### L 501.3620, L501.5200, L500.4050, L100.0100 ####[facility] [address] [place], [address] RDW SD Normal 35.1-43.9 [facility] Comment on above: Result Comment: CLOT ANNMARIE, SPOKE WITH ION Performed By: #### L 501.3620, L501.5200, L500.4050, L100.0100 ####[facility] [address] [place], [address] WBC Normal 4.4-11.0 [facility] Comment on above: Result Comment: CLOT ANNMARIE, ALISON WITH ION Performed By: #### L 501.3620, L501.5200, L500.4050, L100.0100 ####[facility] [address] [place], [address] CPK Total, Creatine Kinaseon 08-07-2024 CPK TOTAL 115 U/L Normal 26-192 [facility] Comment on above: Performed By: #### L 501.3620, L501.5200, L500.4050, L100.0100 ####[facility] [address] [place], [address] Chest PA and Lateralon 08-07 Chest PA and Lateral [facility] [address] [place] [address] Chest PA and Lateral MR#: [id number] Acct: [id number] Name: WILBERT JOHNSON Rep #: [id number] : 1960 F 64 From: Julio Shah i, DO PCP: Care Physician,No Primary Status: REG ER Study: Chest PA and Lateral Date of Exam: 08/07/24 Exam# [id number] Ordering Dr: Lyn Nogueira DO PROCEDURE: AP [...] helpful. Reading Location: [facility] CC: Dr. Lyn Nogueira, ; No Primary Care Physician Chef French: Signed Normal [facility] Comprehensive Metabolic Prof ilon 08-07-2024 Albumin [Mass/Vol] 3.2 g/dL Normal 3.2-5.0 [facility] Comment on above: Performed By: #### L 501.3620, L501.5200, L500.4050, L100.0100 ####[facility] [address] [place], [address] Albumin/Globulin [Mass ratio] 0.7 {ratio} Low 0.9-2.4 [facility] Comment on above: Performed By: #### L 501.3620, L501.5200, L500.4050, L100.0100 ####[facility] [address] [place], [address] ALK P 69 U/L Normal 45-117 [facility] Comment on above: Performed By: #### L 501.3620, L501.5200, L500.4050, L100.0100 ####[facility] [address] [place], [address] ALT [Catalytic activity/Vol] 27 U/L Normal 13-56 [facility] Comment on above: Performed By: #### L 501.3620, L501.5200, L500.4050, L100.0100 ####[facility] [address] [place], [address] AST [Catalytic activity/Vol] 37 U/L Normal 15-37 [facility] Comment on above: Result Comment: Slig ht Hemolysis, Result may be falsely increased. Performed By: #### L 501.3620, L501.5200, L500.4050, L100.0100 ####[facility] [address] [place], [address] Bilirubin [Mass/Vol] 0.30 mg/dL Normal 0.20-1.00 [facility] Comment on above: Result Comment: For patients on eltrombopag therapy, use of Dimension Holcomb TBIL is not recommended. Performed By: #### L 501.3620, L501.5200, L500.4050, L100.0100 ####[facility] [address] [place], [address] BUN/CRE 16.0 RATIO Normal 10-20 [facility] Comment on above: Performed By: #### L 501.3620, L501.5200, L500.4050, L100.0100 ####[facility] [address] [place], [address] CA,Total 9.1 mg/dL Normal 8.5-10.1 [facility] Comment on above: Performed By: #### L 501.3620, L501.5200, L500.4050, L100.0100 ####[facility] [address] [place], [address] Chloride [Moles/Vol] 98 mmol/L Normal 98-107 [facility] Comment on above: Performed By: #### L 501.3620, L501.5200, L500.4050, L100.0100 ####[facility] [address] [place], [address] CO2 [Moles/Vol] 29.0 mmol/L Normal 21.0-32.0 [facility] Comment on above: Performed By: #### L 501.3620, L501.5200, L500.4050, L100.0100 ####[facility] [address] [place], [address] Creatinine [Mass/Vol] 0.94 mg/dL Normal 0.55-1.[address] [facility] Comment on above: Result Comment: The validity of the calculated GFR GFRAA in patients over 70 years has not been determined. Clinical correlation is essential. Performed By: #### L 501.3620, L501.5200, L500.4050, L100.0100 ####[facility] [address] [place], [address] EST GFR - AA 77 mL/min Normal >60 [facility] Comment on above: Result Comment: Afri can Singaporean GFR Calc Performed By: #### L 501.3620, L501.5200, L500.4050, L100.0100 ####[facility] [address] [place], [address] GAP 8 Normal 5-15 [facility] Comment on above: Performed By: #### L 501.3620, L501.5200, L500.4050, L100.0100 ####[facility] [address] [place], [address] GFR/1.73 sq M.predicted among non-blacks MDRD (S/P/Bld) [Vol rate/Area] 63 mL/min/{1.73_m2} Normal >60 [facility] Comment on above: Result Comment: Non- GFR Calc Performed By: #### L 501.3620, L501.5200, L500.4050, L100.0100 ####[facility] [address] [place], [address] Globulin (S) [Mass/Vol] 4.8 g/dL High 2.2-4.2 [facility] Comment on above: Performed By: #### L 501.3620, L501.5200, L500.4050, L100.0100 ####[facility] [address] [place], [address] Glucose [Mass/Vol] 102 mg/dL Normal 74-106 [facility] Comment on above: Result Comment: Fast ing Glucose result from 100 to 125 mg/dL suggests IMPAIRED HOMEOSTASIS per A.D.A. criteria. Performed By: #### L 501.3620, L501.5200, L500.4050, L100.0100 ####[facility] [address] [place], [address] Potassium [Moles/Vol] 3.9 mmol/L Normal 3.5-5.[address] [facility] Comment on above: Result Comment: Slig ht Hemolysis, Result may be falsely increased. Performed By: #### L 501.3620, L501.5200, L500.4050, L100.0100 ####[facility] [address] [place], [address] Sodium [Moles/Vol] 134 mmol/L Low 136-145 [facility] Comment on above: Performed By: #### L 501.3620, L501.5200, L500.4050, L100.0100 ####[facility] [address] [place], [address] T PROT 8.0 g/dL Normal 6.4-8.2 [facility] Comment on above: Performed By: #### L 501.3620, L501.5200, L500.4050, L100.0100 ####[facility] [address] [place], [address] Urea nitrogen [Mass/Vol] 15 mg/dL Normal 7-18 [facility] Comment on above: Performed By: #### L 501.3620, L501.5200, L500.4050, L100.0100 ####[facility] [address] [place], [address] Emergency Department Summary on 08-07-2024 Emergency Department Summary [facility] Medical Records Department [address] [place] [address] Emergency Department Summary 08/07/24 MR#: [id number] Acct: [id number] Name: WILBERT JOHNSON Rep #: [id number] : 1960 64 From: Lyn Nogueira DO PCP: Dr. Mayra Cortez MD Status:ADM BRYANNA Location: MS3 [id number] HPI History of Present Illness Chief Complaint: General [...] tingling no other complaints or concerns reported. [facility] Medical History COPD (chronic obstructive pulmonary [...] Blood Pressure (more content not included)... Normal [facility] M100.678on 08-07-2024 M100.678 CRITICAL VALUE THAKKAR D TO DEVEN BABB RN ER 08/07/24 1835 Clif Mar. RESULTS READ BACK BY SAME. SARS-CoV-2 (COVID 19) Negative INFLUENZA A A Positive A INFLUENZA B Negative RSV PCR Negative INFLUENZAE A Normal [facility] Comment on above: Performed By: #### M 100.678, L400.0001 #### [facility] [address] [place], [address] Magnesiumon 08-07-2024 Magnesium [Mass/Vol] 2.2 mg/dL Normal 1.6-2.6 [facility] Comment on above: Result Comment: Slig ht Hemolysis, Result may be falsely increased. Performed By: #### L 501.3620, L501.5200, L500.4050, L100.0100 ####[facility] [address] [place], [address] Urinalysis, Completeon 08-07 BACTERIA 1+ /hpf Normal None Seen [facility] Comment on above: Order Comment: CLEAN CATCH Performed By: #### M 100.678, L400.0001 #### [facility] [address] [place], [address] EPI,SQUAMOUS 10-25 SEEN Normal 5-10 [facility] Comment on above: Order Comment: CLEAN CATCH Performed By: #### M 100.678, L400.0001 #### [facility] [address] [place], [address] Mucus Ql (Urine sed) 1+ /hpf Normal [facility] Comment on above: Order Comment: CLEAN CATCH Performed By: #### M 100.678, L400.0001 #### [facility] [address] [place], [address] RBC 0-5 SEEN Normal 0-5 [facility] Comment on above: Order Comment: CLEAN CATCH Performed By: #### M 100.678, L400.0001 #### [facility] [address] [place], [address] WBC >100 SEEN Normal 0-5 [facility] Comment on above: Order Comment: CLEAN CATCH Performed By: #### M 100.678, L400.0001 #### [facility] [address] [place], [address] Absolute lymphocyte countOrd ered By: Trevor Douglass on 07-28-2023 Lymphocytes Auto (Unsp spec) [#/Vol] 1.67 10*3/uL 0.83-4.51 [facility] Automated lymphocyte count a s percentage of total leukocytesOrdered By: Trevor Douglass on 07-28-2023 Lymphocytes/100 WBC Auto (Unsp spec) 13.6 % 19-41 [facility] Basophil percentageOrdered B y: Trevor Douglass on 07-28-2023 Basophils/100 WBC (Bld) 0.2 % 0-1 [facility] Bilirubin [Mass/Vol] 0.50 mg/dL 0.20-1.00 [facility] Comment on above: For patients on eltr ombopag therapy, use of Dimension Holcomb TBIL is not recommended. Chloride [Moles/Vol] 106 mmol/L 98-107 [facility] Eosinophils/100 WBC (Bld) 0.1 % 0-5 [facility] Glucose [Mass/Vol] 137 mg/dL 74-106 [facility] Comment on above: Fasting Glucose resu lt greater than or equal to 126 mg/dL suggests DIABETES MELLITUS per A.D.A. criteria. Hemoglobin (Bld) [Mass/Vol] 14.0 g/dL 12.0-15.0 [facility] Monocytes/100 WBC (Bld) 7.5 % 0-10 [facility] Neutrophils (Bld) [#/Vol] 9.6 10*3/uL 2.0-7.7 [facility] Neutrophils/100 WBC (Bld) 78.3 % 47-70 [facility] Potassium [Moles/Vol] 3.5 mmol/L 3.5-5.[address] [facility] Protein [Mass/Vol] 7.4 g/dL 6.4-8.2 [facility] Sodium [Moles/Vol] 135 mmol/L 136-145 [facility] WBC (Bld) [#/Vol] 12.2 10*3/uL 4.4-11.0 [facility] Determination of erythrocyte mean corpuscular volume (MCV)Ordered By: Trevor Douglass on 07-28-2023 MCV (RBC) [Entitic vol] 90.6 fL 81-99 [facility] Direct bilirubinOrdered By: Trevor Douglass on 07-28-2023 Bilirubin.direct [Mass/Vol] 0.15 mg/dL 0.00-0.30 [facility] Erythrocyte distribution wid th ratioOrdered By: Trevor Douglass on 07-28-2023 Erythrocyte distribution width (RBC) [Ratio] 12.6 % 11.6-14.6 [facility] Erythrocyte distribution wid th standard deviationOrdered By: Trevor Douglass on 07-28-2023 Erythrocyte distribution width (RBC) [Entitic vol] 41.6 fL 35.1-43.9 [facility] Hematocrit Auto (Bld) [Volum e fraction]Ordered By: Trevor Douglass on 07-28-2023 Hematocrit (Bld) [Volume fraction] 42.2 % 37-47 [facility] Immature granulocytes/100 WB C Auto (Bld)Ordered By: Trevor Douglass on 07-28-2023 Immature granulocytes/100 WBC (Bld) 0.300 % 0.0-0.9 [facility] Comment on above: IG% - Immature Granu locytes (promyelocytes, myelocytes and metamyelocytes) > 1% indicates that a LEFT SHIFT is Present. Laboratory - Chemistry and C hemistry - challengeOrdered By: Trevor Douglass on 07-28-2023 ALP [Catalytic activity/Vol] 73 U/L 45-117 [facility] ALT [Catalytic activity/Vol] 20 U/L 13-56 [facility] CO2 [Moles/Vol] 25.0 mmol/L 21.0-32.0 [facility] Globulin (S) [Mass/Vol] 4.4 g/dL 2.2-4.2 [facility] Lipase [Catalytic activity/Vol] 19 U/L 13-75 [facility] Comment on above: Please note:LIPASE r evised reference range effective 22. New Lipase methodology. Expected to produce lower values than the previous assay method. NEW Reference Range: 13 - 75 U/L Magnesium [Mass/Vol] 2.1 mg/dL 1.6-2.6 [facility] Urea nitrogen/Creatinine [Mass ratio] 11.0 mg/mg 10-20 [facility] - Hematology and Cell countsOrdered By: Trevor Douglass on 07-28-2023 MCH (RBC) [Entitic mass] 30.0 pg 27.0-32.0 [facility] MCHC (RBC) [Mass/Vol] 33.2 g/dL 32-[address] [facility] Nucleated RBC/100 WBC (Bld) [Ratio] 0 % 0-5 [facility] Platelet mean volume (Bld) [Entitic vol] 9.8 fL 6.2-12.0 [facility] Platelets (Bld) [#/Vol] 285 10*3/uL 150-450 [facility] - Microbiology an d Antimicrobial susceptibilityOrdered By: Trevor Douglass on 07-28-2023 SARS-CoV-2 (COVID-19) RNA SUKHWINDER+probe Ql (Unsp spec) [facility] No Panel InformationOrdered By: Trevor Douglass on 07-28-2023 Estimated Creatinine Clearance Calc 79.98 ml/min [facility] Estimated GFR (MDRD) Amer 103 mL/min >60 [facility] Comment on above: GFR Calc Estimated GFR (MDRD) Non-Af Amer 85 mL/min >60 [facility] Comment on above: Non- GFR Calc RBC Auto (Bld) [#/Vol]Ordere d By: Trevor Douglass on 07-28-2023 RBC (Bld) [#/Vol] 4.66 10*6/uL 4.2-5.4 [facility] Serum or plasma calcium raquel urement (mass/volume)Ordered By: Trevor Douglass on 07-28-2023 Calcium [Mass/Vol] 8.5 mg/dL 8.5-10.1 [facility] Serum or plasma creatinine m easurement (mass/volume)Ordered By: Trevor Douglass on 07-28-2023 Creatinine [Mass/Vol] 0.73 mg/dL 0.55-1.[address] [facility] Comment on above: The validity of the calculated GFR & GFRAA in patients over 70 years has not been determined. Clinical correlation is essential. Serum or plasma urea nitroge n measurement (mass/volume)Ordered By: Trevor Douglass on 07-28-2023 Urea nitrogen [Mass/Vol] 8 mg/dL 7-18 [facility] Thin prep Papanicolaou smear with manual screeningOrdered By: Trevor Douglass on 07-28-2023 Thin prep Papanicolaou smear with manual screening 3.0 g/dL 3.2-5.0 [facility] Thin prep Papanicolaou smear with manual screening 18 U/L 15-37 [facility] Thin prep Papanicolaou smear with manual screening 4 5-15 [facility] Pulmonary Function Studyon Pulmonary Function Study [facility] Medical Records Patient: WILBERT JOHNSON [address] : 1960 [place], [place] [address] Location: [facility] [phone] [id number] [facility]: [id number] Pulmonary Function Study Roland Quick DO Pulmonary [...] mild hyperinflation 3. Normal DLCO cc: Bethany KATZNITROGEN OPERATOR Dictated by: Roalnd Quick DO on 04/06/23840 Entered by: Rloand Quick DO on 04/06/23840 Report Signed by: Roland Quick DO on 04/06/2342 < > Report Signed by: on Normal [facility] CT Chest Without Cont [id number] n 04-02-2023 CT Chest Without Cont [id number] [facility] Radiology Department Patient: WILBERT JOHNSON [address] : 1960 Sex: Skip Montiel [address] Location: CAT [phone] Unit #: [id number] Ordering Phys: Bethany Nesbitt APRN, BRET Exam Date: 04/05/23 Exam: CT CT Chest Without Cont [id number] Result: See Report :[id number] INDICATION: COPD/SPN. pt states no prev surg. [...] 13:48 EDT Reading Location ID and State: [address] [place] [address] , Service support , cc: Bethany Nesbitt PARI MUTUEL TICKET CASHIER-NITROGEN OPERATOR Dictated by: Irineo Owen MD on 04/05/23 1348 Transcribed by: Irineo Owen on 04/05/23 1348 Report Signed by: Brayden BYRD,Irineo Odom on 04/05/23 1348 Normal [facility] Outpatient Cardiac Cath Note on 10-19-2022 Outpatient Cardiac Cath Note [facility] Medical Records Patient: WILBERT JOHNSON [address] : 1960 [place] [address] Location: [facility] [phone] Unit #: [id number] Outpatient Cardiac Cath Note Ion Weathers PA-C [...] 1.39 concerning for balanced ischemia. Subjective Primary Casualty Underwriter: Dr. Liriano Subjective Assessment: WILBERT JOHNSON is [...] 1.39) Indication for Cardiac Cath Indication for Operations Manager/Coordinator Visit: Worsening Angina and Suspected CAD Chest Pain Symptom Assessment: Atypical Angina Functional Capacity: >= 4 METS with symptoms Entered by: Ion Weathers PA-C on 10/14/22 1524 Report Signed by: Ion Weathers PA-C on 10/14/22 1528 < > Report Signed by: Jae Liriano DO [facility] on 10/19/22 1203 < > Normal [facility] Albumin [Mass/volume] in Ser um or Plasmaon 10-14-2022 Albumin [Mass/Vol] 3.8 g/dL 3.5-5.0 [facility] Work Phone: Basic Metabolic Panel,Fastin arti 10-14-2022 Anion gap [Moles/Vol] 7 mmol/L Normal 4-12 [facility] Comment on above: Order Comment: Comme nt Draw am of procedure if abnormal/not drawn beforeComment DRAW LIVER PROFILE IF NOT DONE W/I LAST 30 DAYSComment DRAW LIPID PROFILE IF NOT DONE W/I LAST 30 DAYS Performed By: #### L 400.0202, L400.0400, L400.0302 ####Main Laboratory ([facility])[address] [phone] Nivar, MD Calcium [Mass/Vol] 8.50 mg/dL Low 8.8-10.5 [facility] Comment on above: Order Comment: Comme nt Draw am of procedure if abnormal/not drawn beforeComment DRAW LIVER PROFILE IF NOT DONE W/I LAST 30 DAYSComment DRAW LIPID PROFILE IF NOT DONE W/I LAST 30 DAYS Performed By: #### L 400.0202, L400.0400, L400.0302 ####Main Laboratory ([facility])[address] [place] [phone] Nivar, MD Chloride [Moles/Vol] 105 mmol/L Normal 101-111 [facility] Comment on above: Order Comment: Comme nt Draw am of procedure if abnormal/not drawn beforeComment DRAW LIVER PROFILE IF NOT DONE W/I LAST 30 DAYSComment DRAW LIPID PROFILE IF NOT DONE W/I LAST 30 DAYS Performed By: #### L 400.0202, L400.0400, L400.0302 ####Main Laboratory ([facility])[address] [phone] Nivar, MD CO2 [Moles/Vol] 27 mmol/L Normal 21-32 [facility] Comment on above: Order Comment: Comme nt Draw am of procedure if abnormal/not drawn beforeComment DRAW LIVER PROFILE IF NOT DONE W/I LAST 30 DAYSComment DRAW LIPID PROFILE IF NOT DONE W/I LAST 30 DAYS Performed By: #### L 400.0202, L400.0400, L400.0302 ####Main Laboratory ([facility])[address] [phone] Nivar, MD Creatinine [Mass/Vol] 0.90 mg/dL Normal 0.60-1.30 [facility] Comment on above: Order Comment: Comme nt Draw am of procedure if abnormal/not drawn beforeComment DRAW LIVER PROFILE IF NOT DONE W/I LAST 30 DAYSComment DRAW LIPID PROFILE IF NOT DONE W/I LAST 30 DAYS Performed By: #### L 400.0202, L400.0400, L400.0302 ####Main Laboratory ([facility])[address], [place] [phone] Nivar, MD GFR Calculation > 60 Normal [facility] Comment on above: Order Comment: Comme nt Draw am of procedure if abnormal/not drawn beforeComment DRAW LIVER PROFILE IF NOT DONE W/I LAST 30 DAYSComment DRAW LIPID PROFILE IF NOT DONE W/I LAST 30 DAYS Result Comment: Mortgage Loan Computation Clerk nirmal Kidney Disease stages by NKDF Stage eGFR I >90 II 60-89 III 30-59 IV 15-29 V <15 or dialysis AGE(years) AVERAGE GFR 60-69 85 ml/min/1.73 square meters Note:This result is normalized to 1.73 square meter body surface area. Height and weight are not factored. Performed By: #### L 400.0202, L400.0400, L400.0302 ####Main Laboratory ([facility])[address], [place] [phone] Nivar, MD Glucose [Mass/Vol] 96 mg/dL Normal 70-110 [facility] Comment on above: Order Comment: Comme nt Draw am of procedure if abnormal/not drawn beforeComment DRAW LIVER PROFILE IF NOT DONE W/I LAST 30 DAYSComment DRAW LIPID PROFILE IF NOT DONE W/I LAST 30 DAYS Performed By: #### L 400.0202, L400.0400, L400.0302 ####[facility] ([facility])[address], [place] [phone] Nivar, MD Potassium [Moles/Vol] 4.1 mmol/L Normal 3.6-5.0 [facility] Comment on above: Order Comment: Comme nt Draw am of procedure if abnormal/not drawn beforeComment DRAW LIVER PROFILE IF NOT DONE W/I LAST 30 DAYSComment DRAW LIPID PROFILE IF NOT DONE W/I LAST 30 DAYS Performed By: #### L 400.0202, L400.0400, L400.0302 ####[facility] ([facility])[address] [place], [place] [phone] Nivar, MD Sodium [Moles/Vol] 139 mmol/L Normal 135-145 [facility] Comment on above: Order Comment: Comme nt Draw am of procedure if abnormal/not drawn beforeComment DRAW LIVER PROFILE IF NOT DONE W/I LAST 30 DAYSComment DRAW LIPID PROFILE IF NOT DONE W/I LAST 30 DAYS Performed By: #### L 400.0202, L400.0400, L400.0302 ####[facility] ([facility])[address], [place] [phone] Nivar, MD Urea nitrogen [Mass/Vol] 10 mg/dL Normal 7-20 [facility] Comment on above: Order Comment: Comme nt Draw am of procedure if abnormal/not drawn beforeComment DRAW LIVER PROFILE IF NOT DONE W/I LAST 30 DAYSComment DRAW LIPID PROFILE IF NOT DONE W/I LAST 30 DAYS Performed By: #### L 400.0202, L400.0400, L400.0302 ####[facility] ([facility])[address], [place] [phone] Nivar, MD Basophils Auto (Bld) [#/Vol] on 10-14-2022 Basophils (Bld) [#/Vol] 100 /cmm 0-200 L [facility] Work Phone: Basophils/100 WBC Auto (Bld) on 10-14-2022 Basophils/100 WBC (Bld) 0.9 % 0-2 L [facility] Work Phone: Blood anion gapon 10-14-2022 Anion gap (Bld) [Moles/Vol] 7 mmol/L 4-12 [facility] Work Phone: Blood coagulation panelon Blood coagulation panel 200 /cmm 0-500 L [facility] Work Phone: Blood hematocrit (volume fra ction)on 10-14-2022 Hematocrit (Bld) [Volume fraction] 42.8 % 35.0-44.0 [facility] Work Phone: Blood hemoglobin measurement (mass/volume)on 10-14-2022 Hemoglobin (Bld) [Mass/Vol] 14.5 g/dL 12.0-15.0 [facility] Work Phone: CBC with Differentialon 09-20 Abs Baso Count 100 /cmm Normal 0-200 [facility] Comment on above: Order Comment: Comme nt Draw am of procedure if abnormal/not drawn before Performed By: #### L 100.0000 ####[facility] ([facility])[address], [place] [phone] Nivar, MD Abs Eos Count 200 /cmm Normal 0-500 [facility] Comment on above: Order Comment: Comme nt Draw am of procedure if abnormal/not drawn before Performed By: #### L 100.0000 ####[facility] ([facility])[address], [place] [phone] Nivar, MD Abs Lymph Count 3100 /cmm Normal 3073-3471 [facility] Comment on above: Order Comment: Comme nt Draw am of procedure if abnormal/not drawn before Performed By: #### L 100.0000 ####[facility] ([facility])[address] [phone] Nivar, MD Abs Uvalde Count 800 /cmm Normal 0-800 [facility] Comment on above: Order Comment: Comme nt Draw am of procedure if abnormal/not drawn before Performed By: #### L 100.0000 ####[facility] ([facility])[address], [place] [phone] Nivar, MD Abs Neut Count 6600 /cmm Normal 6309-8916 [facility] Comment on above: Order Comment: Comme nt Draw am of procedure if abnormal/not drawn before Performed By: #### L 100.0000 ####[facility] ([facility])[address], [place] [phone] Nivar, MD Basophils/100 WBC (Bld) 0.9 % Normal 0-2 L [facility] Comment on above: Order Comment: Comme nt Draw am of procedure if abnormal/not drawn before Performed By: #### L 100.0000 ####[facility] ([facility])[address] [place] [phone] Nivar, MD EOS-Auto Diff 1.9 % Normal 0-6 [facility] Comment on above: Order Comment: Comme nt Draw am of procedure if abnormal/not drawn before Performed By: #### L 100.0000 ####[facility] ([facility])[address], [place] [phone] Nivar, MD Erythrocyte distribution width (RBC) [Ratio] 12.9 % Normal 12.0-16.0 [facility] Comment on above: Order Comment: Comme nt Draw am of procedure if abnormal/not drawn before Performed By: #### L 100.0000 ####[facility] ([facility])[address] [phone] Nivar, MD Hematocrit (Bld) [Volume fraction] 42.8 % Normal 35.0-44.0 [facility] Comment on above: Order Comment: Comme nt Draw am of procedure if abnormal/not drawn before Performed By: #### L 100.0000 ####[facility] ([facility])[address] [phone] Nivar, MD Hemoglobin (Bld) [Mass/Vol] 14.5 g/dL Normal 12.0-15.0 [facility] Comment on above: Order Comment: Comme nt Draw am of procedure if abnormal/not drawn before Performed By: #### L 100.0000 ####[facility] ([facility])[address], [place] [phone] Nivar, MD Lymphocytes/100 WBC (Bld) 28.8 % Normal 15-45 [facility] Comment on above: Order Comment: Comme nt Draw am of procedure if abnormal/not drawn before Performed By: #### L 100.0000 ####[facility] ([facility])[address] [phone] Nivar, MD MCH (RBC) [Entitic mass] 30.6 pg Normal 27.5-33.0 [facility] Comment on above: Order Comment: Comme nt Draw am of procedure if abnormal/not drawn before Performed By: #### L 100.0000 ####[facility] ([facility])[address] [phone] Nivar, MD MCHC (RBC) [Mass/Vol] 34.0 g/dL Normal 33.0-36.0 [facility] Comment on above: Order Comment: Comme nt Draw am of procedure if abnormal/not drawn before Performed By: #### L 100.0000 ####[facility] ([facility])[address] [place] [phone] Nivar, MD MCV 89.9 CU DEANNA Normal 80-97 [facility] Comment on above: Order Comment: Comme nt Draw am of procedure if abnormal/not drawn before Performed By: #### L 100.0000 ####[facility] ([facility])[address] [phone] Nivar, MD Uvalde- Auto Diff 7.2 % Normal 2-10 [facility] Comment on above: Order Comment: Comme nt Draw am of procedure if abnormal/not drawn before Performed By: #### L 100.0000 ####[facility] ([facility])[address] [phone] Nivar, MD Neut-Auto Diff 61.2 % Normal 40-70 [facility] Comment on above: Order Comment: Comme nt Draw am of procedure if abnormal/not drawn before Performed By: #### L 100.0000 ####[facility] ([facility])[address] [phone] Nivar, MD NRBC-Auto 0.1 /100 WBC Normal <1 [facility] Comment on above: Order Comment: Comme nt Draw am of procedure if abnormal/not drawn before Performed By: #### L 100.0000 ####[facility] ([facility])[address] [phone] Nivar, MD Platelet Count 301 th/cmm Normal 150-400 [facility] Comment on above: Order Comment: Comme nt Draw am of procedure if abnormal/not drawn before Performed By: #### L 100.0000 ####[facility] ([facility])[address] [phone] Nivar, MD RBC 4.76 mil/cmm Normal 4.00-5.10 [facility] Comment on above: Order Comment: Comme nt Draw am of procedure if abnormal/not drawn before Performed By: #### L 100.0000 ####[facility] ([facility])[address] [phone] Nivar, MD WBC 10.7 th/cmm High 4.4-10.5 [facility] Comment on above: Order Comment: Comme nt Draw am of procedure if abnormal/not drawn before Performed By: #### L 100.0000 ####[facility] ([facility])[address] [phone] Nivar, MD Cholesterol in LDL Direct as say [Mass/Vol]on 10-14-2022 Cholesterol in LDL [Mass/Vol] 121 mg/dL High <100 [facility] Work Phone: Comment on above: The National Cholest jovany Education Program (NCEP) has set the following guidelines (reference values) for cholesterol, LDL: Desirable (optimal): <100 mg/dL Low Risk (near optimal): 100-129 mg/dL Borderline high: 130-159 mg/dL High: 160-189 mg/dL Very high: >=190 mg/dL Cholesterol in VLDL Calc [Ma ss/Vol]on 10-14-2022 Cholesterol in VLDL [Mass/Vol] 40 mg/dL High <39 [facility] Work Phone: EKG Monitoringon 10-14-2022 EKG Monitoring [facility] Patient: WILBERT JOHNSON [address] : 1960 [place], [place] [address] Location: [facility] [phone] Unit #: [id number] Ordering Phys: Ion Weathers PA-C EKG Monitoring Epi Schaeffer MD, JESSICA, FACP Exam Date/Time Oct 14 2022 14:26:01 [...] PM Referred By: Ion Weathers Confirmed By:EPI SCHAEFFER MD, FACC Dictated by: Epi Schaeffer MD, JESSICA, LEDYP on 10/14/22 1426 Transcribed by: [employer] M-AT on 10/14/221919 Report Signed by: Epi Schaeffer MD, FACC FACP on 10/14/221919 Normal [facility] Eosinophils/100 WBC Auto (Bl d)on 10-14-2022 Eosinophils/100 WBC (Bld) 1.9 % 0-6 [facility] Work Phone: Erythrocyte distribution wid th ratioon 10-14-2022 Erythrocyte distribution width (RBC) [Ratio] 12.9 % 12.0-16.0 [facility] Work Phone: Hepatic Function Panel (Live r)on 10-14-2022 Albumin [Mass/Vol] 3.8 g/dL Normal 3.5-5.0 [facility] Comment on above: Order Comment: Comme nt Draw am of procedure if abnormal/not drawn beforeComment DRAW LIVER PROFILE IF NOT DONE W/I LAST 30 DAYSComment DRAW LIPID PROFILE IF NOT DONE W/I LAST 30 DAYS Performed By: #### L 400.0202, L400.0400, L400.0302 ####[facility] ([facility])[address] [phone] Nivar, MD Alk Phos 74 IU/L Normal 39-118 [facility] Comment on above: Order Comment: Comme nt Draw am of procedure if abnormal/not drawn beforeComment DRAW LIVER PROFILE IF NOT DONE W/I LAST 30 DAYSComment DRAW LIPID PROFILE IF NOT DONE W/I LAST 30 DAYS Performed By: #### L 400.0202, L400.0400, L400.0302 ####[facility] ([facility])[address] [phone] Nivar, MD ALT [Catalytic activity/Vol] 29 U/L Normal 10-40 [facility] Comment on above: Order Comment: Comme nt Draw am of procedure if abnormal/not drawn beforeComment DRAW LIVER PROFILE IF NOT DONE W/I LAST 30 DAYSComment DRAW LIPID PROFILE IF NOT DONE W/I LAST 30 DAYS Performed By: #### L 400.0202, L400.0400, L400.0302 ####[facility] ([facility])[address] [phone] Nivar, MD AST [Catalytic activity/Vol] 28 U/L Normal 15-41 [facility] Comment on above: Order Comment: Comme nt Draw am of procedure if abnormal/not drawn beforeComment DRAW LIVER PROFILE IF NOT DONE W/I LAST 30 DAYSComment DRAW LIPID PROFILE IF NOT DONE W/I LAST 30 DAYS Performed By: #### L 400.0202, L400.0400, L400.0302 ####[facility] ([facility])[address] [phone] Nivar, MD Bili,Direct 0.1 mg/dL Normal 0.1-0.2 [facility] Comment on above: Order Comment: Comme nt Draw am of procedure if abnormal/not drawn beforeComment DRAW LIVER PROFILE IF NOT DONE W/I LAST 30 DAYSComment DRAW LIPID PROFILE IF NOT DONE W/I LAST 30 DAYS Performed By: #### L 400.0202, L400.0400, L400.0302 ####[facility] ([facility])[address], [place] [phone] Nivar, MD Bili,Total 0.4 mg/dL Normal 0.2-1.0 [facility] Comment on above: Order Comment: Comme nt Draw am of procedure if abnormal/not drawn beforeComment DRAW LIVER PROFILE IF NOT DONE W/I LAST 30 DAYSComment DRAW LIPID PROFILE IF NOT DONE W/I LAST 30 DAYS Performed By: #### L 400.0202, L400.0400, L400.0302 ####[facility] ([facility])[address], [place] [phone] Nivar, MD Protein [Mass/Vol] 6.8 g/dL Normal 6.2-8.0 [facility] Comment on above: Order Comment: Comme nt Draw am of procedure if abnormal/not drawn beforeComment DRAW LIVER PROFILE IF NOT DONE W/I LAST 30 DAYSComment DRAW LIPID PROFILE IF NOT DONE W/I LAST 30 DAYS Performed By: #### L 400.0202, L400.0400, L400.0302 ####[facility] ([facility])[address], [place] [phone] Nivar, MD Lipid Panelon 10-14-2022 Chol/HDL Risk 3.8 Low 4.0-4.4 [facility] Comment on above: Order Comment: Comme nt Draw am of procedure if abnormal/not drawn beforeComment DRAW LIVER PROFILE IF NOT DONE W/I LAST 30 DAYSComment DRAW LIPID PROFILE IF NOT DONE W/I LAST 30 DAYS Performed By: #### L 400.0202, L400.0400, L400.0302 ####[facility] ([facility])[address] [phone] Nivar, MD Cholesterol [Mass/Vol] 202 mg/dL High <200 [facility] Comment on above: Order Comment: Comme nt Draw am of procedure if abnormal/not drawn beforeComment DRAW LIVER PROFILE IF NOT DONE W/I LAST 30 DAYSComment DRAW LIPID PROFILE IF NOT DONE W/I LAST 30 DAYS Performed By: #### L 400.0202, L400.0400, L400.0302 ####[facility] ([facility])[address] [place], [place] [phone] Nivar, MD Cholesterol in HDL [Mass/Vol] 53 mg/dL Normal [facility] Comment on above: Order Comment: Comme nt [...] #### L 400.0202, L400.0400, L400.0302 ####[facility] ([facility])[address], [place] [phone] Nivar, MD Cholesterol in LDL [Mass/Vol] 121 mg/dL High [facility] Comment on above: Order Comment: Comme nt [...] #### L 400.0202, L400.0400, L400.0302 ####[facility] ([facility])[address], [place] [phone] Nivar, MD Cholesterol in VLDL [Mass/Vol] 40 mg/dL High <39 [facility] Comment on above: Order Comment: Comme nt Draw am of procedure if abnormal/not drawn beforeComment DRAW LIVER PROFILE IF NOT DONE W/I LAST 30 DAYSComment DRAW LIPID PROFILE IF NOT DONE W/I LAST 30 DAYS Performed By: #### L 400.0202, L400.0400, L400.0302 ####[facility] ([facility])[address], [place] [phone] Nivar, MD dLDL/HDL RISK 2.2 Normal <3.1 [facility] Comment on above: Order Comment: Comme nt Draw am of procedure if abnormal/not drawn beforeComment DRAW LIVER PROFILE IF NOT DONE W/I LAST 30 DAYSComment DRAW LIPID PROFILE IF NOT DONE W/I LAST 30 DAYS Performed By: #### L 400.0202, L400.0400, L400.0302 ####[facility] ([facility])[address] [phone] Nivar, MD Triglyceride [Mass/Vol] 204 mg/dL High <150 L [facility] Comment on above: Order Comment: Comme nt Draw am of procedure if abnormal/not drawn beforeComment DRAW LIVER PROFILE IF NOT DONE W/I LAST 30 DAYSComment DRAW LIPID PROFILE IF NOT DONE W/I LAST 30 DAYS Performed By: #### L 400.0202, L400.0400, L400.0302 ####[facility] ([facility])[address], [place] [phone] Nivar, MD Lymphocytes/100 WBC Auto (Bl d)on 10-14-2022 Lymphocytes/100 WBC (Bld) 28.8 % 15-45 [facility] Work Phone: MCH Auto (RBC) [Entitic mass ]on 10-14-2022 MCH (RBC) [Entitic mass] 30.6 pg 27.5-33.0 [facility] Work Phone: MCHC Auto (RBC) [Mass/Vol]on 10-14-2022 MCHC (RBC) [Mass/Vol] 34.0 g/dL 33.0-36.0 [facility] Work Phone: MCV Auto (RBC) [Entitic vol] on 10-14-2022 MCV (RBC) [Entitic vol] 89.9 CU DEANNA 80-97 [facility] Work Phone: Monocytes Auto (Bld) [#/Vol] on 10-14-2022 Monocytes (Bld) [#/Vol] 800 /cmm 0-800 L [facility] Work Phone: Monocytes/100 WBC Auto (Bld) on 10-14-2022 Monocytes/100 WBC (Bld) 7.2 % 2-10 L [facility] Work Phone: Neutrophils/100 WBC Auto (Bl d)on 10-14-2022 Neutrophils/100 WBC (Bld) 61.2 % 40-70 [facility] Work Phone: No Panel Informationon 10-14 Absolute Lymphocytes (auto) 3100 /cmm [phone] [facility] Work Phone: Absolute Neutrophils (auto) 6600 /cmm [phone] [facility] Work Phone: Glomerular Filtration Rate Calc > 60 >60 [facility] Work Phone: Comment on above: AGE(years) AVERAGE G FR 60-69 85 ml/min/1.73 square metersNote:This result is normalized to 1.73 square meter body surface area. Height and weight are not factored.Chronic Kidney Disease stages by NKDFStage eGFR I >90 II 60-89 III 30-59 IV 15-29 V <15 or dialysis Nucleated RBC Auto (Bld) [#/ Vol]on 10-14-2022 Nucleated RBC (Bld) [#/Vol] 0.1 /100 WBC <1 [facility] Work Phone: Platelets Auto (Bld) [#/Vol] on 10-14-2022 Platelets (Bld) [#/Vol] 301 th/cmm 150-400 L [facility] Work Phone: RBC Auto (Bld) [#/Vol]on RBC (Bld) [#/Vol] 4.76 mil/cmm 4.00-5.10 [facility] Work Phone: Serum or plasma alanine garcia otransferase measurement (enzymatic activity/volume)on 10-14-2022 ALT [Catalytic activity/Vol] 29 U/L 10-40 [facility] Work Phone: Serum or plasma alkaline lorena sphatase measurement (enzymatic activity/volume)on 10-14-2022 ALP [Catalytic activity/Vol] 74 U/L 39-118 [facility] Work Phone: Serum or plasma aspartate am inotransferase measurement (enzymatic activity/volume)on 10-14-2022 AST [Catalytic activity/Vol] 28 U/L 15-41 [facility] Work Phone: Serum or plasma calcium raquel urement (mass/volume)on 10-14-2022 Calcium [Mass/Vol] 8.50 mg/dL Low 8.8-10.5 [facility] Work Phone: Serum or plasma carbon dioxi de, total measurement (moles/volume)on 10-14-2022 CO2 [Moles/Vol] 27 mmol/L 21-32 [facility] Work Phone: Serum or plasma chloride pedro surement (moles/volume)on 10-14-2022 Chloride [Moles/Vol] 105 mmol/L 101-111 [facility] Work Phone: Serum or plasma cholesterol in HDL measurement (mass/volume)on 10-14-2022 Cholesterol in HDL [Mass/Vol] 53 mg/dL >40 [facility] Work Phone: Comment on above: The National Cholest jovany Education Program (NCEP) has set the following guidelines (reference values) for cholesterol, HDL: Low: <40 mg/dL Normal: 40-60 mg/dL High: >60 mg/dL Serum or plasma cholesterol in LDL/cholesterol in HDL mass ratioon 10-14-2022 Cholesterol in LDL/Cholesterol in HDL [Mass ratio] 2.2 {ratio} <3.1 [facility] Work Phone: Serum or plasma cholesterol measurement (mass/volume)on 10-14-2022 Cholesterol [Mass/Vol] 202 mg/dL High <200 [facility] Work Phone: Serum or plasma creatinine m easurement (mass/volume)on 10-14-2022 Creatinine [Mass/Vol] 0.90 mg/dL 0.60-1.30 [facility] Work Phone: Serum or plasma direct bilir ubin measurement (mass/volume)on 10-14-2022 Bilirubin.direct [Mass/Vol] 0.1 mg/dL 0.1-0.2 [facility] Work Phone: Serum or plasma fasting gluc ose measurement (mass/volume)on 10-14-2022 Glucose post fast [Mass/Vol] 96 mg/dL 70-110 [facility] Work Phone: Serum or plasma potassium me asurement (moles/volume)on 10-14-2022 Potassium [Moles/Vol] 4.1 mmol/L 3.6-5.0 [facility] Work Phone: Serum or plasma protein raquel urement (mass/volume)on 10-14-2022 Protein [Mass/Vol] 6.8 g/dL 6.2-8.0 [facility] Work Phone: Serum or plasma sodium measu rement (moles/volume)on 10-14-2022 Sodium [Moles/Vol] 139 mmol/L 135-145 [facility] Work Phone: Serum or plasma total biliru bin measurement (mass/volume)on 10-14-2022 Bilirubin [Mass/Vol] 0.4 mg/dL 0.2-1.0 [facility] Work Phone: Serum or plasma total choles terol/cholesterol in HDL mass ratioon 10-14-2022 Cholesterol.total/Naya sterol in HDL [Mass ratio] 3.8 {ratio} Low 4.0-4.4 [facility] Work Phone: Serum or plasma triglyceride measurement (mass/volume)on 10-14-2022 Triglyceride [Mass/Vol] 204 mg/dL High <150 L [facility] Work Phone: Serum or plasma urea nitroge n measurement (mass/volume)on 10-14-2022 Urea nitrogen [Mass/Vol] 10 mg/dL 7-20 [facility] Work Phone: WBC Auto (Bld) [#/Vol]on WBC (Bld) [#/Vol] 10.7 th/cmm High 4.4-10.5 [facility] Work Phone: Stress Reporton 10-01-2022 Stress Report [facility] Patient: WILBERT JOHNSON [address] : 1960 [place] [address] Location: [facility] [phone] Unit #: [id number] Stress Report Jae Liriano DO [facility] Dictation ID#: [id number] [facility] STRESS TEST DATE OF TEST: 09/30/2002 ORDERING PHYSICIAN: Jae Liriano D.O., F.A.CShirazC. INDICATION: Shortness of breath. STUDY PROTOCOL: 0.4 [...] symptomatic, further evaluation is warranted. cc: Jae Liriano DO [facility]; Bethany Nesbitt APRN-NITROGEN OPERATOR Dictated by: Jae Liriano DO, FACC on 10/01/22 0819 Transcribed by: Keisha Hernadez on 10/01/22 0947 Report Signed by: Jae Liriano DO [facility] on 10/01/22 1323 < > Normal [facility] CT Chest Without Cont [id number] n 09-30-2022 CT Chest Without Cont [id number] [facility] Radiology Department Patient: WILBERT JOHNSON [address] : 1960 Sex: [place] [id number] Location: [facility] [phone] Unit #: [id number] Ordering Phys: Bethany Nesbitt APRN, CNP Exam Date: 09/30/22 Exam: CT CT Chest Without Cont [id number] Result: See Report INDICATION: LUNG NODULE FOLLOW UP/SOB. FOLLOW UP TO RUNOFF AT [facility] IN 2017. STATES NO SURGERY. HX [...] 11:48 EDT Reading Location ID and State: 15 [place] , Service support , cc: eBthany Nesbitt [employer]I [employer] CASHIER-NITROGEN OPERATOR Dictated by: Irineo Owen MD on 09/30/22 1148 Transcribed by: Irineo Owen on 09/30/22 1148 Report Signed by: Irineo Owen MD on 09/30/22 1148 Normal [facility] EKG Monitoringon 09-22-2022 EKG Monitoring [facility] Patient: WILBERT JOHNSON [address] : 1960 [place], [place] [address] Location: [place] [address] Unit #: [id number] Ordering Phys: Bethany Nesbitt APRN, BRET EKG Monitoring Epi Schaeffer MD, FACCarlos, FACP Exam Date/Time Sep 21 2022 14:13:04 [...] 09/21/2022 10:57:30 PM Referred By: Bethany Nesbitt APRN-NITROGEN OPERATOR Confirmed By:EPI SCHAEFFER MD, FACC Dictated by: Epi Schaeffer MD, JESSICA, FACP on 09/21/22 1413 Transcribed by: [employer] -AT on 09/21/22 2257 Report Signed by: Epi VILLAFANAC FACP on 09/21/22 2258 Normal [facility] Albumin [Mass/volume] in Ser um or Plasmaon 09-21-2022 Albumin [Mass/Vol] 4.0 g/dL 3.5-5.0 [facility] Work Phone: Basophils Auto (Bld) [#/Vol] on 09-21-2022 Basophils (Bld) [#/Vol] 100 /cmm 0-200 L [facility] Work Phone: Basophils/100 WBC Auto (Bld) on 04-03-2023 Basophils/100 WBC (Bld) 0.9 % 0-2 L [facility] Work Phone: Blood anion gapon 09-21-2022 Anion gap (Bld) [Moles/Vol] 9 mmol/L 4-12 [facility] Work Phone: Blood coagulation panelon Blood coagulation panel 100 /cmm 0-500 L [facility] Work Phone: Blood hematocrit (volume fra ction)on 09-21-2022 Hematocrit (Bld) [Volume fraction] 47.1 % High 35.0-44.0 [facility] Work Phone: Blood hemoglobin measurement (mass/volume)on 09-21-2022 Hemoglobin (Bld) [Mass/Vol] 15.7 g/dL High 12.0-15.0 [facility] Work Phone: CBC with Differentialon Abs Baso Count 100 /cmm Normal 0-200 [facility] Comment on above: Performed By: #### L 100.0000 ####Main Laboratory ([facility])[address], [place] [phone] Nivar, MD Abs Eos Count 100 /cmm Normal 0-500 [facility] Comment on above: Performed By: #### L 100.0000 ####[facility] ([facility])[address], [place] [phone] Nivar, MD Abs Lymph Count 3000 /cmm Normal 7398-0838 [facility] Comment on above: Performed By: #### L 100.0000 ####[facility] ([facility])[address], [place] [phone] Nivar, MD Abs Uvalde Count 1000 /cmm High 0-800 [facility] Comment on above: Performed By: #### L 100.0000 ####[facility] ([facility])[address] [phone] Nivar, MD Abs Neut Count 7300 /cmm Normal 7091-8624 [facility] Comment on above: Performed By: #### L 100.0000 ####[facility] ([facility])[address], [place] [phone] Nivar, MD Basophils/100 WBC (Bld) 0.9 % Normal 0-2 L [facility] Comment on above: Performed By: #### L 100.0000 ####[facility] ([facility])[address] [phone] Nivar, MD EOS-Auto Diff 1.2 % Normal 0-6 [facility] Comment on above: Performed By: #### L 100.0000 ####[facility] ([facility])[address] [phone] Nivar, MD Erythrocyte distribution width (RBC) [Ratio] 13.5 % Normal 12.0-16.0 [facility] Comment on above: Performed By: #### L 100.0000 ####[facility] ([facility])[address] [place] [phone] Nivar, MD Hematocrit (Bld) [Volume fraction] 47.1 % High 35.0-44.0 [facility] Comment on above: Performed By: #### L 100.0000 ####[facility] ([facility])[address], [place] [phone] Nivar, MD Hemoglobin (Bld) [Mass/Vol] 15.7 g/dL High 12.0-15.0 [facility] Comment on above: Performed By: #### L 100.0000 ####Main [facility] ([facility])[address] [phone] Nivar, MD Lymphocytes/100 WBC (Bld) 26.0 % Normal 15-45 [facility] Comment on above: Performed By: #### L 100.0000 ####Main [facility] ([facility])[address] [phone] Nivar, MD MCH (RBC) [Entitic mass] 30.4 pg Normal 27.5-33.0 [facility] Comment on above: Performed By: #### L 100.0000 ####Main [facility] ([facility])[address] [phone] Nivar, MD MCHC (RBC) [Mass/Vol] 33.3 g/dL Normal 33.0-36.0 [facility] Comment on above: Performed By: #### L 100.0000 ####Main Laboratory ([facility])[address] [phone] Nivar, MD MCV 91.2 CU DEANNA Normal 80-97 [facility] Comment on above: Performed By: #### L 100.0000 ####[facility] ([facility])[address] [phone] Nivar, MD Uvalde- Auto Diff 8.6 % Normal 2-10 [facility] Comment on above: Performed By: #### L 100.0000 ####[facility] ([facility])[address] [phone] Nivar, MD Neut-Auto Diff 63.3 % Normal 40-70 [facility] Comment on above: Performed By: #### L 100.0000 ####[facility] ([facility])[address] [phone] Nivar, MD NRBC-Auto 0.1 /100 WBC Normal <1 [facility] Comment on above: Performed By: #### L 100.0000 ####[facility] ([facility])[address] [phone] Nivar, MD Platelet Count 314 th/cmm Normal 150-400 [facility] Comment on above: Performed By: #### L 100.0000 ####Main [facility] ([facility])[address], [place] [phone] Nivar, MD RBC 5.17 mil/cmm High 4.00-5.10 [facility] Comment on above: Performed By: #### L 100.0000 ####Main [facility] ([facility])[address] [phone] Nivar, MD WBC 11.5 th/cmm High 4.4-10.5 [facility] Comment on above: Performed By: #### L 100.0000 ####Main [facility] ([facility])[address] [place], [place] [phone] Nivar, MD Cholesterol in LDL Direct as say [Mass/Vol]on 09-21-2022 Cholesterol in LDL [Mass/Vol] 176 mg/dL High <100 [facility] Work Phone: Comment on above: The National Cholest jovany Education Program (NCEP) has set the following guidelines (reference values) for cholesterol, LDL: Desirable (optimal): <100 mg/dL Low Risk (near optimal): 100-129 mg/dL Borderline high: 130-159 mg/dL High: 160-189 mg/dL Very high: >=190 mg/dL Cholesterol in VLDL Calc [Ma ss/Vol]on 09-21-2022 Cholesterol in VLDL [Mass/Vol] 38 mg/dL <39 [facility] Work Phone: Comprehensive Metabolic Pane parth 09-21-2022 Albumin [Mass/Vol] 4.0 g/dL Normal 3.5-5.0 [facility] Comment on above: Order Comment: Is Pa tient Fasting? Yes Performed By: #### L 400.5100, L400.0065, L400.0400, L404.7150, L400.0076 #### Main Laboratory ([facility]) [address] [place], [place] [address] Herrera White MD Alk Phos 100 IU/L Normal 39-118 [facility] Comment on above: Order Comment: Is Pa tient Fasting? Yes Performed By: #### L 400.5100, L400.0065, L400.0400, L404.7150, L400.0076 #### Main Laboratory ([facility]) [address] [place] [address] Herrera White MD ALT [Catalytic activity/Vol] 36 U/L Normal 10-40 [facility] Comment on above: Order Comment: Is Pa tient Fasting? Yes Performed By: #### L 400.5100, L400.0065, L400.0400, L404.7150, L400.0076 #### Main Laboratory ([facility]) [address] [place] [address] Herrera White MD AST [Catalytic activity/Vol] 58 U/L High 15-41 [facility] Comment on above: Order Comment: Is Pa tient Fasting? Yes Performed By: #### L 400.5100, L400.0065, L400.0400, L404.7150, L400.0076 #### Main Laboratory ([facility]) [address] [place] [address] Herrera White MD Bili,Total 0.5 mg/dL Normal 0.2-1.0 [facility] Comment on above: Order Comment: Is Pa tient Fasting? Yes Performed By: #### L 400.5100, L400.0065, L400.0400, L404.7150, L400.0076 #### Main Laboratory ([facility]) [address] [place] [address] Herrera White MD Calcium [Mass/Vol] 8.80 mg/dL Normal 8.8-10.5 [facility] Comment on above: Order Comment: Is Pa tient Fasting? Yes Performed By: #### L 400.5100, L400.0065, L400.0400, L404.7150, L400.0076 #### Main Laboratory ([facility]) [address] [place] [phone] Herrera White MD Chloride [Moles/Vol] 99 mmol/L Low 101-111 [facility] Comment on above: Order Comment: Is Pa tient Fasting? Yes Performed By: #### L 400.5100, L400.0065, L400.0400, L404.7150, L400.0076 #### Main Laboratory ([facility]) [address] [place] [address] Herrera White MD CO2 [Moles/Vol] 28 mmol/L Normal 21-32 [facility] Comment on above: Order Comment: Is Pa tient Fasting? Yes Performed By: #### L 400.5100, L400.0065, L400.0400, L404.7150, L400.0076 #### Main Laboratory ([facility]) [address] [place] [phone] Herrera White MD Creatinine [Mass/Vol] 0.86 mg/dL Normal 0.60-1.30 [facility] Comment on above: Order Comment: Is Pa tient Fasting? Yes Performed By: #### L 400.5100, L400.0065, L400.0400, L404.7150, L400.0076 #### Main Laboratory ([facility]) [address] [place] [address] Herrera White MD GFR Calculation > 60 Normal [facility] Comment on above: Order Comment: Is Pa tient Fasting? Yes Result Comment: Mortgage Loan Computation Clerk nirmal Kidney Disease stages by NKDF Stage eGFR I >90 II 60-89 III 30-59 IV 15-29 V <15 or dialysis AGE(years) AVERAGE GFR 60-69 85 ml/min/1.73 square meters Note:This result is normalized to 1.73 square meter body surface area. Height and weight are not factored. Performed By: #### L 400.5100, L400.0065, L400.0400, L404.7150, L400.0076 #### Main Laboratory ([facility]) [address] [place] [address] Herrera White MD Glucose [Mass/Vol] 97 mg/dL Normal 70-110 [facility] Comment on above: Order Comment: Is Pa tient Fasting? Yes Result Comment: *Thi s reference range applies to fasting specimens only. Performed By: #### L 400.5100, L400.0065, L400.0400, L404.7150, L400.0076 #### Main Laboratory ([facility]) [address] [place] [address] Herrera White MD Potassium [Moles/Vol] 4.5 mmol/L Normal 3.6-5.0 [facility] Comment on above: Order Comment: Is Pa tient Fasting? Yes Performed By: #### L 400.5100, L400.0065, L400.0400, L404.7150, L400.0076 #### Main Laboratory ([facility]) [address] [place] [address] Herrera White MD Protein [Mass/Vol] 7.6 g/dL Normal 6.2-8.0 [facility] Comment on above: Order Comment: Is Pa tient Fasting? Yes Performed By: #### L 400.5100, L400.0065, L400.0400, L404.7150, L400.0076 #### Main Laboratory ([facility]) [address] [place] [address] Herrera White MD Sodium [Moles/Vol] 136 mmol/L Normal 135-145 [facility] Comment on above: Order Comment: Is Pa tient Fasting? Yes Performed By: #### L 400.5100, L400.0065, L400.0400, L404.7150, L400.0076 #### Main Laboratory ([facility]) [address] [place] [phone] Herrera White MD Urea nitrogen [Mass/Vol] 10 mg/dL Normal 7-20 [facility] Comment on above: Order Comment: Is Pa tient Fasting? Yes Performed By: #### L 400.5100, L400.0065, L400.0400, L404.7150, L400.0076 #### Main Laboratory ([facility]) [address] [place] [phone] Herrera White MD Albumin/Globulin [Mass ratio] 1.1 {ratio} Low 1.5-2.5 [facility] Comment on above: Order Comment: Is Pa tient Fasting? Yes Performed By: #### L 400.5100, L400.0065, L400.0400, L404.7150, L400.0076 #### Main Laboratory ([facility]) [address] [place] [address] Herrera White MD Anion gap [Moles/Vol] 9 mmol/L Normal 4-12 [facility] Comment on above: Order Comment: Is Pa tient Fasting? Yes Performed By: #### L 400.5100, L400.0065, L400.0400, L404.7150, L400.0076 #### Main Laboratory ([facility]) [address] [place] [address] Herrera White MD Echocardiographyon 3 Echocardiography [facility] Patient: WILBERT JOHNSON [address] : 1960 [place], [place] [address] Location: [address] [phone] [facility]: [id number] Ordering Phys: Bethany Nesbitt APRN, NITROGEN OPERATOR Echocardiography Epi Schaeffer MD, FACC, FACP Transthoracic Echocardiography Report (TTE) Demographics Patient Name ALEX ATKINS Gender Female PAZ Patient [id number] Race Unknown Number Ethnicity Account [id number] Room Number OP Number Corporate ID Date of Study 09/21/2022 Referring ADRIANA; Number Physician Delicia Bethany Joseph; Date of 1960 Fax Machine Operator Yisel Nam, RDCS, CCT; Age 62 year(s) Interpreting ADRIANA; Physician Analisa [facility]; Procedure Type of Study TTE procedure Procedure [...] appears normal. Signature Electronically signed by Analisa [facility](Interpreting Physician) on 09/21/2022 04:39 PM M-Mode Measurements (in cm) LVIDd (n=3.5-5.7): 5.1 cm Aortic Valve Opening (n=1.5-2.6): 2.1 LVIDs (n=2.2-4.0): 3.8 cm cm Post. Wall Thickness (n=0.6-1.1): 1 RV Supine (n=0.7-2.3): 2.5 cm cm AOR Diam (n=2.0-3.7): 3 cm Septal Thickness (n=0.6-1.1): 1.2 cm Fractional Shortening (n>25%):25 % Doppler - Max Velocity (cm/s) AV: 190 cm/s(n=876-582) Aortic Valve Area (Continuity):2.04 cm MV:77.7 cm/s(n=60-130) [...] cm Miscel (more content not included)... Normal [facility] Eosinophils/100 WBC Auto (Bl d)on 09-21-2022 Eosinophils/100 WBC (Bld) 1.2 % 0-6 [facility] Work Phone: Erythrocyte distribution wid th ratioon 09-21-2022 Erythrocyte distribution width (RBC) [Ratio] 13.5 % 12.0-16.0 [facility] Work Phone: Lipid Panelon 09-21-2022 Cholesterol [Mass/Vol] 237 mg/dL High <200 [facility] Comment on above: Order Comment: Is Pa tient Fasting? Yes Performed By: #### L 400.5100, L400.0065, L400.0400, L404.7150, L400.0076 #### Main Laboratory ([facility]) [address] [place] [address] Herrera White MD Cholesterol in HDL [Mass/Vol] 56 mg/dL Normal [facility] Comment on above: Order Comment: Is Pa tient Fasting? Yes Result Comment: The National Cholesterol Education Program (NCEP) has set the following guidelines (reference values) for cholesterol, HDL: Low: <40 mg/dL Normal: 40-60 mg/dL High: >60 mg/dL Performed By: #### L 400.5100, L400.0065, L400.0400, L404.7150, L400.0076 #### Main Laboratory ([facility]) [address] [place] [address] Herrera White MD Cholesterol in LDL [Mass/Vol] 176 mg/dL High [facility] Comment on above: Order Comment: Is Pa tient Fasting? Yes Result Comment: The National Cholesterol Education Program (NCEP) has set the following guidelines (reference values) for cholesterol, LDL: Desirable (optimal): <100 mg/dL Low Risk (near optimal): 100-129 mg/dL Borderline high: 130-159 mg/dL High: 160-189 mg/dL Very high: >=190 mg/dL Performed By: #### L 400.5100, L400.0065, L400.0400, L404.7150, L400.0076 #### Main Laboratory ([facility]) [address] [place] [address] Herrera White MD Triglyceride [Mass/Vol] 191 mg/dL High <150 L [facility] Comment on above: Order Comment: Is Pa tient Fasting? Yes Performed By: #### L 400.5100, L400.0065, L400.0400, L404.7150, L400.0076 #### Main Laboratory ([facility]) [address] [place] [address] Herrera White MD Chol/HDL Risk 4.2 Normal 4.0-4.4 [facility] Comment on above: Order Comment: Is Pa tient Fasting? Yes Performed By: #### L 400.5100, L400.0065, L400.0400, L404.7150, L400.0076 #### Main Laboratory ([facility]) [address] [place] [address] Herrera White MD Cholesterol in VLDL [Mass/Vol] 38 mg/dL Normal <39 [facility] Comment on above: Order Comment: Is Pa tient Fasting? Yes Performed By: #### L 400.5100, L400.0065, L400.0400, L404.7150, L400.0076 #### Main Laboratory ([facility]) [address] [place] [address] Herrera White MD dLDL/HDL RISK 3.1 Normal <3.1 [facility] Comment on above: Order Comment: Is Pa tient Fasting? Yes Performed By: #### L 400.5100, L400.0065, L400.0400, L404.7150, L400.0076 #### Main Laboratory ([facility]) [address] [place] [address] Herrera White MD Lymphocytes/100 WBC Auto (Bl d)on 09-21-2022 Lymphocytes/100 WBC (Bld) 26.0 % 15-45 [facility] Work Phone: MCH Auto (RBC) [Entitic mass ]on 09-21-2022 MCH (RBC) [Entitic mass] 30.4 pg 27.5-33.0 [facility] Work Phone: MCHC Auto (RBC) [Mass/Vol]on 09-21-2022 MCHC (RBC) [Mass/Vol] 33.3 g/dL 33.0-36.0 [facility] Work Phone: MCV Auto (RBC) [Entitic vol] on 09-21-2022 MCV (RBC) [Entitic vol] 91.2 CU DEANNA 80-97 [facility] Work Phone: Magnesiumon 09-21-2022 Magnesium [Mass/Vol] 1.9 mg/dL Normal 1.8-2.5 [facility] Comment on above: Order Comment: Is Pa tient Fasting? Yes Performed By: #### L 400.5100, L400.0065, L400.0400, L404.7150, L400.0076 #### Main Laboratory ([facility]) [address] [place] [address] Herrera White MD Monocytes Auto (Bld) [#/Vol] on 09-21-2022 Monocytes (Bld) [#/Vol] 1000 /cmm High 0-800 L [facility] Work Phone: Monocytes/100 WBC Auto (Bld) on 09-21-2022 Monocytes/100 WBC (Bld) 8.6 % 2-10 L [facility] Work Phone: [phone] Neutrophils/100 WBC Auto (Bl d)on 09-21-2022 Neutrophils/100 WBC (Bld) 63.3 % 40-70 [facility] Work Phone: No Panel Informationon 09-21 Absolute Lymphocytes (auto) 3000 /cmm [phone] [facility] Work Phone: Absolute Neutrophils (auto) 7300 /cmm [phone] [facility] Work Phone: Glomerular Filtration Rate Calc > 60 >60 [facility] Work Phone: Comment on above: AGE(years) AVERAGE G FR 60-69 85 ml/min/1.73 square metersNote:This result is normalized to 1.73 square meter body surface area. Height and weight are not factored.Chronic Kidney Disease stages by NKDFStage eGFR I >90 II 60-89 III 30-59 IV 15-29 V <15 or dialysis Nucleated RBC Auto (Bld) [#/ Vol]on 09-21-2022 Nucleated RBC (Bld) [#/Vol] 0.1 /100 WBC <1 [facility] Work Phone: Platelets Auto (Bld) [#/Vol] on 09-21-2022 Platelets (Bld) [#/Vol] 314 th/cmm 150-400 L [facility] Work Phone: RBC Auto (Bld) [#/Vol]on RBC (Bld) [#/Vol] 5.17 mil/cmm High 4.00-5.10 [facility] Work Phone: Serum or plasma alanine garcia otransferase measurement (enzymatic activity/volume)on 09-21-2022 ALT [Catalytic activity/Vol] 36 U/L 10-40 [facility] Work Phone: Serum or plasma albumin/glob ulin mass ratioon 09-21-2022 Albumin/Globulin [Mass ratio] 1.1 {ratio} Low 1.5-2.5 [facility] Work Phone: Serum or plasma alkaline lorena sphatase measurement (enzymatic activity/volume)on 09-21-2022 ALP [Catalytic activity/Vol] 100 U/L 39-118 [facility] Work Phone: Serum or plasma aspartate am inotransferase measurement (enzymatic activity/volume)on 09-21-2022 AST [Catalytic activity/Vol] 58 U/L High 15-41 [facility] Work Phone: Serum or plasma calcium raquel urement (mass/volume)on 09-21-2022 Calcium [Mass/Vol] 8.80 mg/dL 8.8-10.5 [facility] Work Phone: Serum or plasma carbon dioxi de, total measurement (moles/volume)on 09-21-2022 CO2 [Moles/Vol] 28 mmol/L 21-32 [facility] Work Phone: Serum or plasma chloride pedro surement (moles/volume)on 09-21-2022 Chloride [Moles/Vol] 99 mmol/L Low 101-111 [facility] Work Phone: Serum or plasma cholesterol in HDL measurement (mass/volume)on 09-21-2022 Cholesterol in HDL [Mass/Vol] 56 mg/dL >40 [facility] Work Phone: Comment on above: The National Cholest jovany Education Program (NCEP) has set the following guidelines (reference values) for cholesterol, HDL: Low: <40 mg/dL Normal: 40-60 mg/dL High: >60 mg/dL Serum or plasma cholesterol in LDL/cholesterol in HDL mass ratioon 09-21-2022 Cholesterol in LDL/Cholesterol in HDL [Mass ratio] 3.1 {ratio} <3.1 [facility] Work Phone: Serum or plasma cholesterol measurement (mass/volume)on 09-21-2022 Cholesterol [Mass/Vol] 237 mg/dL High <200 [facility] Work Phone: Serum or plasma creatinine m easurement (mass/volume)on 09-21-2022 Creatinine [Mass/Vol] 0.86 mg/dL 0.60-1.30 [facility] Work Phone: Serum or plasma glucose raquel urement (mass/volume)on 09-21-2022 Glucose [Mass/Vol] 97 mg/dL 70-110 [facility] Work Phone: Comment on above: *This reference rang e applies to fasting specimens only. Serum or plasma magnesium me asurement (mass/volume)on 09-21-2022 Magnesium [Mass/Vol] 1.9 mg/dL 1.8-2.5 [facility] Work Phone: Serum or plasma potassium me asurement (moles/volume)on 09-21-2022 Potassium [Moles/Vol] 4.5 mmol/L 3.6-5.0 [facility] Work Phone: Serum or plasma protein raquel urement (mass/volume)on 09-21-2022 Protein [Mass/Vol] 7.6 g/dL 6.2-8.0 [facility] Work Phone: Serum or plasma sodium measu rement (moles/volume)on 09-21-2022 Sodium [Moles/Vol] 136 mmol/L 135-145 [facility] Work Phone: Serum or plasma total biliru bin measurement (mass/volume)on 09-21-2022 Bilirubin [Mass/Vol] 0.5 mg/dL 0.2-1.0 [facility] Work Phone: Serum or plasma total choles terol/cholesterol in HDL mass ratioon 09-21-2022 Cholesterol.total/Naya sterol in HDL [Mass ratio] 4.2 {ratio} 4.0-4.4 [facility] Work Phone: Serum or plasma total combin ed vitamin D and metabolites measurement (mass/volume)on 09-21-2022 Vitamin D+Metabolites [Mass/Vol] 48.20 ng/mL 30.00-100. 00 [facility] Work Phone: Comment on above: Optimal values are e stablished by the Clinical Guidelines Subcommittee of the Endocrine Society Task Force. (Journal of Clinical Endocrinology & Metabolism,2011;96)Status Vitamin D Concentration Range------- Deficient <20Insufficient 20 - 30Sufficient 30 - 100 Serum or plasma triglyceride measurement (mass/volume)on 09-21-2022 Triglyceride [Mass/Vol] 191 mg/dL High <150 L [facility] Work Phone: Serum or plasma urea nitroge n measurement (mass/volume)on 09-21-2022 Urea nitrogen [Mass/Vol] 10 mg/dL 7-20 [facility] Work Phone: TSH DL <= 0.005 mIU/L Qnon 0 09-21-2022 TSH Qn 0.971 m[IU]/L 0.490-4.67 0 [facility] Work Phone: TSH reflex Free T4on 023 TSH reflex Free T4 0.971 mcIU/mL Normal 0.490-4. 67 0 [facility] Comment on above: Order Comment: Is Pa tient Fasting? Yes Performed By: #### L 400.5100, L400.0065, L400.0400, L404.2050, L400.0076 ####Main Laboratory ([facility])[address], [place] [phone] Nivar, MD Vitamin D,25-hydroxy (Total) on 09-21-2022 25(OH) Vitamin D,Total 48.20 ng/mL Normal 30.00 -100. 00 [facility] Comment on above: Order Comment: Is Aquiles rollins Fasting? Yes Result Comment: Opti mal values are established by the Clinical Guidelines Subcommittee of the Endocrine Society Task Force. (Journal of Clinical Endocrinology & Metabolism,2011;96) Status Vitamin D Concentration Range ------- Deficient <20 Insufficient 20 - 30 Sufficient 30 - 100 Performed By: #### L 400.5100, L400.0065, L400.0400, L404.7150, L400.0076 #### Main Laboratory ([facility]) [address] [place] [address] Herrera White MD WBC Auto (Bld) [#/Vol]on WBC (Bld) [#/Vol] 11.5 th/cmm High 4.4-10.5 [facility] Work Phone: Genital cultureon 09-06-2022 Genital culture ORGANISM 1: Streptoc occus anginosus Amount of growth Many Comments Many Normal genital myrna also isolated Streptococcus anginosus: REACTION Ampicillin <=0.25 S Cefotaxime <=0.12 S Ceftriaxone <=0.12 S Penicillin <=0.06 S Vancomycin 0.25 S Normal [facility] Comment on above: Order Comment: Is Aquiles rollins N Performed By: #### M 140.0500 ####Main Laboratory ([facility])[address] [place], [place] [phone] Nivar, MD Urine cultureon 08-15-2022 Bacteria identified Cx Nom (U) No growth(<10,000 CFU/ml)of urinary tract pathogens. Myrna present are not the usual etiologic agents of a urinary tract infection and probably represent vaginal,urethral, or skin myrna. Contact Microbiology at extension [phone] if further information is needed. ORGANISM 1: Mixed myrna- 3 species present Bodega count >100,000 CFU/ml Normal [facility] Comment on above: Performed By: #### M 120.0000 ####Main Laboratory ([facility])[address] [phone] Nivar, MD Urine cultureon 07-30-2022 Bacteria identified Cx Nom (U) No growth(<10,000 CFU/ml)of urinary tract pathogens. Myrna present are not the usual etiologic agents of a urinary tract infection and probably represent vaginal,urethral, or skin myrna. Contact Microbiology at extension [phone] if further information is needed. ORGANISM 1: Mixed myrna, 5 species present Bodega count >100,000 CFU/ml Normal [facility] Comment on above: Performed By: #### M 120.0000 #### Main Laboratory ([facility]) [address] [place] [address] Herrera White MD Vitamin B1on 12-11-2020 Vitamin B1 114 nmol/L Normal 70-180 [facility] Comment on above: Result Comment: (NOT [...] developed and its performance characteristics determined by [facility]. It has not been cleared or approved by the [place] Food and Drug Administration. This test was performed in a CLIA certified laboratory and is intended for clinical purposes. Performed By: [facility] [address] [place] [address] Science Manager: Marisela Ruiz MD Performed By: #### F T4, CP, CDP, LIPR, B12, BNP, TSH, VD25, MG, TROPI #### [facility] [address] [place] [address] Veterinary Medicine Scientist: Ernesto Miranda MD #### AVITB1 #### [facility] [address] [place] [address] Veterinary Medicine Scientist: Prasanth Haywood MD CBC with Diffon 12-05-2020 Abs. Basophil 0.00 k/uL Normal 0.0-0.2 [facility] Comment on above: Performed By: #### F T4, CP, CDP, LIPR, B12, BNP, TSH, VD25, MG, TROPI #### [address] [address] Veterinary Medicine Scientist: Ernesto Miranda MD #### AVITB1 #### [address] [address] Veterinary Medicine Scientist: Prasanth Haywood MD Abs.Imm.Granulocyte 0.00 k/uL Normal 0.00-0.30 [facility] Comment on above: Performed By: #### F T4, CP, CDP, LIPR, B12, BNP, TSH, VD25, MG, TROPI #### [place] [address] Veterinary Medicine Scientist: Ernesto Miranda MD #### AVITB1 #### [address] [address] Veterinary Medicine Scientist: Prasanth Haywood MD Abs.Neutrophil (Seg) 3.88 k/uL Normal 1.8-7.7 [facility] Comment on above: Performed By: #### F T4, CP, CDP, LIPR, B12, BNP, TSH, VD25, MG, TROPI #### [address] [address] Veterinary Medicine Scientist: Ernesto Miranda MD #### AVITB1 #### [address] [id number] Veterinary Medicine Scientist: Prasanth Haywood MD Basophils/100 WBC (Bld) 0 % Normal 0-2 M [facility] Comment on above: Performed By: #### F T4, CP, CDP, LIPR, B12, BNP, TSH, VD25, MG, TROPI #### [place] [id number] Veterinary Medicine Scientist: Ernesto Miranda MD #### AVITB1 #### [facility] [address] [place] [address] Veterinary Medicine Scientist: Prasanth Haywood MD Eosinophils (Bld) [#/Vol] 0.00 10*3/uL Normal 0.0-0.4 [facility] Comment on above: Performed By: #### F T4, CP, CDP, LIPR, B12, BNP, TSH, VD25, MG, TROPI #### [address] [address] Veterinary Medicine Scientist: Ernesto Miranda MD #### AVITB1 #### [facility] [address], [place] [id number] Veterinary Medicine Scientist: Prasanth Haywood MD Eosinophils/100 WBC (Bld) 0 % Low 1-4 [facility] Comment on above: Performed By: #### F T4, CP, CDP, LIPR, B12, BNP, TSH, VD25, MG, TROPI #### [address] [address] Veterinary Medicine Scientist: Ernesto Miranda MD #### AVITB1 #### [facility] [address] [place], [place] [id number] Veterinary Medicine Scientist: Prasanth Haywood MD Immature granulocytes/100 WBC (Bld) 0 % Normal 0 [facility] Comment on above: Performed By: #### F T4, CP, CDP, LIPR, B12, BNP, TSH, VD25, MG, TROPI #### [address] [address] Veterinary Medicine Scientist: Ernesto Miranda MD #### AVITB1 #### [facility] [address] [place], [place] [id number] Veterinary Medicine Scientist: Prasanth Haywood MD Lymphocytes (Bld) [#/Vol] 6.12 10*3/uL High 1.0-4.8 [facility] Comment on above: Result Comment: R/O Chronic Lymphoproliferative Disorder, recommend peripheral blood Flow Cytometry, if clinically indicated. Performed By: #### F T4, CP, CDP, LIPR, B12, BNP, TSH, VD25, MG, TROPI #### [address] [address] Veterinary Medicine Scientist: Ernesto Miranda MD #### AVITB1 #### [address] [address] Veterinary Medicine Scientist: Prasanth Haywood MD Lymphocytes/100 WBC (Bld) 60 % High 24-44 [facility] Comment on above: Performed By: #### F T4, CP, CDP, LIPR, B12, BNP, TSH, VD25, MG, TROPI #### [address] [address] Veterinary Medicine Scientist: Ernesto Miranda MD #### AVITB1 #### [address] [address] Veterinary Medicine Scientist: Prasanth Haywood MD Monocytes (Bld) [#/Vol] 0.20 10*3/uL Normal 0.1-0.8 [facility] Comment on above: Performed By: #### F T4, CP, CDP, LIPR, B12, BNP, TSH, VD25, MG, TROPI #### [address] [address] Veterinary Medicine Scientist: Ernesto Miranda MD #### AVITB1 #### [address] [id number] Veterinary Medicine Scientist: Prasanth Haywood MD Monocytes/100 WBC (Bld) 2 % Normal 1-7 M [facility] Comment on above: Performed By: #### F T4, CP, CDP, LIPR, B12, BNP, TSH, VD25, MG, TROPI #### [address] [id number] Veterinary Medicine Scientist: Ernesto Miranda MD #### AVITB1 #### [facility] [address] [place] [address] Veterinary Medicine Scientist: Prasanth Haywood MD Morphology Yeison (Bld) [Interp] Normal Normal [facility] Comment on above: Performed By: #### F T4, CP, CDP, LIPR, B12, BNP, TSH, VD25, MG, TROPI #### [address] [address] Veterinary Medicine Scientist: Ernesto Miranda MD #### AVITB1 #### [facility] [address] [place] [address] Veterinary Medicine Scientist: Prasanth Haywood MD Neutrophil (Seg) 38 % Normal 36-66 [facility] Comment on above: Performed By: #### F T4, CP, CDP, LIPR, B12, BNP, TSH, VD25, MG, TROPI #### [address] [address] Veterinary Medicine Scientist: Ernesto Miranda MD #### AVITB1 #### [address] [address] Veterinary Medicine Scientist: Prasanth Haywood MD Brain Natri. Peptideon 12-04 BNP Interpretation Pro-BNP Reference Range: Normal [facility] Comment on above: Result Comment: Rule Out: <300 Galvan Zone: Age <50 300-450 Age 50-75 300-900 Age >75 300-1800 Usually represents mild to moderate HF but other cardiopulmonary causes cannot be ruled out. Rule In: Age <50 >450 Age 50-75 >900 Age >75 >1800 Performed By: #### F T4, CP, CDP, LIPR, B12, BNP, TSH, VD25, MG, TROPI #### [address] [address] Veterinary Medicine Scientist: Ernesto Miranda MD #### AVITB1 #### [facility] [address] [place], [place] [id number] Veterinary Medicine Scientist: Prasanth Haywood MD Natriuretic peptide B (Bld) [Mass/Vol] 143 pg/mL Normal <300 [facility] Comment on above: Result Comment: Pro- BNP results cannot be compared to BNP results. Performed By: #### F T4, CP, CDP, LIPR, B12, BNP, TSH, VD25, MG, TROPI #### [facility] [address] [place] [address] Veterinary Medicine Scientist: Ernesto Miranda MD #### AVITB1 #### [facility] [address] [place] [address] Veterinary Medicine Scientist: Prasanth Haywood MD Brain Natriuretic PeptideOrd ered By: Shazia Bhatti on 12-04-2020 BNP Interpretation Pro-BNP Reference Range: [facility] Phone: Comment on above: Rule Out: <300 Galvan Zone: Age <50 300-450 Age 50-75 300-900 Age >75 300-1800 Usually represents mild to moderate HF but other cardiopulmonary causes cannot be ruled out. Rule In: Age <50 >450 Age 50-75 >900 Age >75 >1800 Natriuretic peptide B (Bld) [Mass/Vol] 143 pg/mL <300 [facility] Phone: Comment on above: Pro-BNP results nick ot be compared to BNP results. CBC Auto DifferentialOrdered By: Shazia Bhatti on 12-04-2020 Absolute Eos # 0.00 [facility] Phone: Absolute Immature Granulocyte 0.00 [facility] Phone: Absolute Lymph # 6.12 High [facility] Phone: Comment on above: R/O Chronic Lymphopr oliferative Disorder, recommend peripheral blood Flow Cytometry, if clinically indicated. Absolute [place] # 0.20 [facility] Phone: Basophils (Bld) [#/Vol] 0.00 10*3/uL [facility] Phone: Basophils/100 WBC (Bld) 0 % 0 - 2 % M [facility] Phone: Differential Type NOT REPORTED [facility] Phone: Eosinophils/100 WBC (Bld) 0 % Low 1 - 4 % [facility] Phone: Hematocrit (Bld) [Volume fraction] 48.3 % High 36.3 - 47.1 % [facility] Phone: Hemoglobin.gastrointest inal spec 1 Ql (Stl) 15.3 g/dL High 11.9 - 15.1 g/dL [facility] Phone: Immature granulocytes/100 WBC (Bld) 0 % 0 [facility] Phone: Interpretation and review of laboratory results Abnormal [facility] Phone: Lymphocytes/100 WBC (Bld) 60 % High 24 - 44 % [facility] Phone: MCH (RBC) [Entitic mass] 29.4 pg 25.2 - 33.5 pg [facility] Phone: MCHC (RBC) [Mass/Vol] 31.7 g/dL 28.4 - 34.8 g/dL [facility] Phone: MCV (RBC) [Entitic vol] 92.7 fL 82.6 - 102.9 fL [facility] Phone: Monocytes/100 WBC (Bld) 2 % 1 - 7 % M [employer] Phone: Morphology Yeison (Bld) [Interp] Normal [facility] Phone: NRBC Automated 0.0 0.0 per 100 WBC [facility] Phone: Platelet distribution width (Bld) [Ratio] 12.8 % 11.8 - 14.4 % [facility] Phone: Platelet Estimate NOT REPORTED [facility] Phone: Platelet mean volume (Bld) [Entitic vol] 10.2 fL 8.1 - 13.5 fL [facility] Phone: Platelets (Bld) [#/Vol] 358 10*3/uL [facility] Phone: RBC (Bld) [#/Vol] 5.21 10*6/uL High 3.95 - 5.11 m/uL [facility] Phone: RBC (Bld) [#/Vol] NOT REPORTED [facility] Phone: Segmented neutrophils/100 WBC (Bld) 38 % 36 - 66 % [facility] Phone: Segs Absolute 3.88 [facility] Phone: WBC (Bld) [#/Vol] 10.2 10*3/uL [facility] Phone: WBC (Bld) [#/Vol] NOT REPORTED [facility] Phone: [facility] Phone: CBC with Diffon 12-04-2020 Erythrocyte distribution width (RBC) [Ratio] 12.8 % Normal 11.8-14.4 [facility] Comment on above: Performed By: #### F T4, CP, CDP, LIPR, B12, BNP, TSH, VD25, MG, TROPI #### [facility] [address], [place] [id number] Veterinary Medicine Scientist: Ernesto Miranda MD #### AVITB1 #### [facility] [address] [place] [address] Veterinary Medicine Scientist: Prasanth Haywood MD Hematocrit (Bld) [Volume fraction] 48.3 % High 36.3-47.1 [facility] Comment on above: Performed By: #### F T4, CP, CDP, LIPR, B12, BNP, TSH, VD25, MG, TROPI #### [address] [address] Veterinary Medicine Scientist: Ernesto Miranda MD #### AVITB1 #### [facility] [address] [place], [place] [id number] Veterinary Medicine Scientist: Prasanth Haywood MD Hemoglobin (Bld) [Mass/Vol] 15.3 g/dL High 11.9-15.1 [facility] Comment on above: Performed By: #### F T4, CP, CDP, LIPR, B12, BNP, TSH, VD25, MG, TROPI #### [address] [address] Veterinary Medicine Scientist: Ernesto Miranda MD #### AVITB1 #### [facility] [address] [place], [place] [id number] Veterinary Medicine Scientist: Prasanth Haywood MD MCH (RBC) [Entitic mass] 29.4 pg Normal 25.2-33.5 [facility] Comment on above: Performed By: #### F T4, CP, CDP, LIPR, B12, BNP, TSH, VD25, MG, TROPI #### [address] [address] Veterinary Medicine Scientist: Ernesto Miranda MD #### AVITB1 #### [facility] [address] [place] [address] Veterinary Medicine Scientist: Prasanth Haywood MD MCHC (RBC) [Mass/Vol] 31.7 g/dL Normal 28.4-34.8 [facility] Comment on above: Performed By: #### F T4, CP, CDP, LIPR, B12, BNP, TSH, VD25, MG, TROPI #### [address] [address] Veterinary Medicine Scientist: Ernesto Miranda MD #### AVITB1 #### [facility] [address] [place] [address] Veterinary Medicine Scientist: Prasanth Haywood MD MCV (RBC) [Entitic vol] 92.7 fL Normal 82.6-102.9 M [facility] Comment on above: Performed By: #### F T4, CP, CDP, LIPR, B12, BNP, TSH, VD25, MG, TROPI #### [address] [address] Veterinary Medicine Scientist: Ernesto Miranda MD #### AVITB1 #### [facility] [address] [place] [address] Veterinary Medicine Scientist: Prasanth Haywood MD NRBC Automated 0.0 per 100 WBC Normal 0.0 [facility] Comment on above: Performed By: #### F T4, CP, CDP, LIPR, B12, BNP, TSH, VD25, MG, TROPI #### [place] [address] Veterinary Medicine Scientist: Ernesto Miranda MD #### AVITB1 #### [address] [address] Veterinary Medicine Scientist: Prasanth Haywood MD Platelet mean volume (Bld) [Entitic vol] 10.2 fL Normal 8.1-13.5 [facility] Comment on above: Performed By: #### F T4, CP, CDP, LIPR, B12, BNP, TSH, VD25, MG, TROPI #### [place] [address] Veterinary Medicine Scientist: Ernesto Miranda MD #### AVITB1 #### [facility] [address] [place], [place] [id number] Veterinary Medicine Scientist: Prasanth Haywood MD Platelets (Bld) [#/Vol] 358 10*3/uL Normal 138-453 [facility] Comment on above: Performed By: #### F T4, CP, CDP, LIPR, B12, BNP, TSH, VD25, MG, TROPI #### [address] [place] [address] Veterinary Medicine Scientist: Ernesto Miranda MD #### AVITB1 #### [facility] [address] [place], [place] [id number] Veterinary Medicine Scientist: Prasanth Haywood MD RBC (Bld) [#/Vol] 5.21 10*6/uL High 3.95-5.11 [facility] Comment on above: Performed By: #### F T4, CP, CDP, LIPR, B12, BNP, TSH, VD25, MG, TROPI #### [facility] [address] [place] [address] Veterinary Medicine Scientist: Ernesto Miranda MD #### AVITB1 #### [facility] [address] [place], [place] [id number] Veterinary Medicine Scientist: Prasanth Haywood MD WBC (Bld) [#/Vol] 10.2 10*3/uL Normal 3.5-11.3 [facility] Comment on above: Performed By: #### F T4, CP, CDP, LIPR, B12, BNP, TSH, VD25, MG, TROPI #### [address] [address] Veterinary Medicine Scientist: Ernesto Miranda MD #### AVITB1 #### [facility] [address] [place], [place] [id number] Veterinary Medicine Scientist: Prasanth Haywood MD Auto Diff Performed NOT REPORTED Normal [facility] Comment on above: Performed By: #### F T4, CP, CDP, LIPR, B12, BNP, TSH, VD25, MG, TROPI #### [facility] [address] [place] [address] Veterinary Medicine Scientist: Ernesto Miranda MD #### AVITB1 #### [facility] [address] [place] [address] Veterinary Medicine Scientist: Prasanth Haywood MD Platelet Estimate NOT REPORTED Normal [facility] Comment on above: Performed By: #### F T4, CP, CDP, LIPR, B12, BNP, TSH, VD25, MG, TROPI #### [place] [address] Veterinary Medicine Scientist: Ernesto Miranda MD #### AVITB1 #### [address] [phone] Veterinary Medicine Scientist: Prasanth Haywood MD RBC morphology finding Nom (Bld) NOT REPORTED Normal [facility] Comment on above: Performed By: #### F T4, CP, CDP, LIPR, B12, BNP, TSH, VD25, MG, TROPI #### [place] [address] Veterinary Medicine Scientist: Ernesto Miranda MD #### AVITB1 #### [address] [id number] Veterinary Medicine Scientist: Prasanth Haywood MD WBC Morphology NOT REPORTED Normal [facility] Comment on above: Performed By: #### F T4, CP, CDP, LIPR, B12, BNP, TSH, VD25, MG, TROPI #### [place] [address] Veterinary Medicine Scientist: Ernesto Miranda MD #### AVITB1 #### [address] [phone] Veterinary Medicine Scientist: Prasanth Haywood MD Comp Metabolic Profon 2020 (cont.) Normal [facility] Comment on above: Result Comment: Aver age GFR for 60-69 years old: 85 mL/min/1.73sq m Chronic Kidney Disease: <60 mL/min/1.73sq m Kidney failure: <15 mL/min/1.73sq m eGFR calculated using average adult body mass. Additional eGFR calculator available at: http://www.GranData.com/multiple_crcl_2012.htm Performed By: #### F T4, CP, CDP, LIPR, B12, BNP, TSH, VD25, MG, TROPI #### [address] [phone] Veterinary Medicine Scientist: Ernesto Miranda MD #### AVITB1 #### [facility] [address] [place] [address] Veterinary Medicine Scientist: Prasanth Haywood MD Albumin [Mass/Vol] 4.4 g/dL Normal 3.5-5.2 [facility] Comment on above: Performed By: #### F T4, CP, CDP, LIPR, B12, BNP, TSH, VD25, MG, TROPI #### [address] [address] Veterinary Medicine Scientist: Ernesto Miranda MD #### AVITB1 #### [address] [id number] Veterinary Medicine Scientist: Prasanth Haywood MD Albumin/Glob Ratio 1.2 Normal 1.0-2.5 [facility] Comment on above: Performed By: #### F T4, CP, CDP, LIPR, B12, BNP, TSH, VD25, MG, TROPI #### [address] [phone] Veterinary Medicine Scientist: Ernesto Miranda MD #### AVITB1 #### [facility] [address] [place], [place] [id number] Veterinary Medicine Scientist: Prasanth Haywood MD Alkaline Phos 82 U/L Normal 35-104 [facility] Comment on above: Performed By: #### F T4, CP, CDP, LIPR, B12, BNP, TSH, VD25, MG, TROPI #### [address] [address] Veterinary Medicine Scientist: Ernesto Miranda MD #### AVITB1 #### [facility] [address] [place], [place] [id number] Veterinary Medicine Scientist: Prasanth Haywood MD ALT [Catalytic activity/Vol] 22 U/L Normal 5-33 [facility] Comment on above: Performed By: #### F T4, CP, CDP, LIPR, B12, BNP, TSH, VD25, MG, TROPI #### [address] [address] Veterinary Medicine Scientist: Ernesto Miranda MD #### AVITB1 #### [address] [id number] Veterinary Medicine Scientist: Prasanth Haywood MD Anion gap [Moles/Vol] 16 mmol/L Normal 9-17 [facility] Comment on above: Performed By: #### F T4, CP, CDP, LIPR, B12, BNP, TSH, VD25, MG, TROPI #### [address] [address] Veterinary Medicine Scientist: Ernesto Miranda MD #### AVITB1 #### [address] [address] Veterinary Medicine Scientist: Prasanth Haywood MD AST [Catalytic activity/Vol] 22 U/L Normal <32 [facility] Comment on above: Performed By: #### F T4, CP, CDP, LIPR, B12, BNP, TSH, VD25, MG, TROPI #### [address] [address] Veterinary Medicine Scientist: Ernesto Miranda MD #### AVITB1 #### [address] [address] Veterinary Medicine Scientist: Prasanth Haywood MD Bilirubin [Mass/Vol] 0.43 mg/dL Normal 0.3-1.2 [facility] Comment on above: Performed By: #### F T4, CP, CDP, LIPR, B12, BNP, TSH, VD25, MG, TROPI #### [address] [id number] Veterinary Medicine Scientist: Ernesto Miranda MD #### AVITB1 #### [facility] [address] [place] [address] Veterinary Medicine Scientist: Prasanth Haywood MD Calcium [Mass/Vol] 9.3 mg/dL Normal 8.6-10.4 [facility] Comment on above: Performed By: #### F T4, CP, CDP, LIPR, B12, BNP, TSH, VD25, MG, TROPI #### [address] [phone] Veterinary Medicine Scientist: Ernesto Miranda MD #### AVITB1 #### [facility] [address] [place] [address] Veterinary Medicine Scientist: Prasanth Haywood MD Chloride [Moles/Vol] 103 mmol/L Normal 98-107 [facility] Comment on above: Performed By: #### F T4, CP, CDP, LIPR, B12, BNP, TSH, VD25, MG, TROPI #### [address] [phone] Veterinary Medicine Scientist: Ernesto Miranda MD #### AVITB1 #### [facility] [address] [place] [address] Veterinary Medicine Scientist: Prasanth Haywood MD CO2 [Moles/Vol] 21 mmol/L Normal 20-31 [facility] Comment on above: Performed By: #### F T4, CP, CDP, LIPR, B12, BNP, TSH, VD25, MG, TROPI #### [address] [phone] Veterinary Medicine Scientist: Ernesto Miranda MD #### AVITB1 #### [facility] [address] [place] [address] Veterinary Medicine Scientist: Prasanth Haywood MD Creatinine [Mass/Vol] 0.75 mg/dL Normal 0.50-0.90 [facility] Comment on above: Performed By: #### F T4, CP, CDP, LIPR, B12, BNP, TSH, VD25, MG, TROPI #### [address] [address] Veterinary Medicine Scientist: Ernesto Miranda MD #### AVITB1 #### [facility] [address] [place] [id number] Veterinary Medicine Scientist: Prasanth Haywood MD GFR, Amer >60 Normal >60 [facility] Comment on above: Performed By: #### F T4, CP, CDP, LIPR, B12, BNP, TSH, VD25, MG, TROPI #### [address] [address] Veterinary Medicine Scientist: Ernesto Miranda MD #### AVITB1 #### [address] [address] Veterinary Medicine Scientist: Prasanth Haywood MD GFR,non Amer >60 Normal >60 [facility] Comment on above: Performed By: #### F T4, CP, CDP, LIPR, B12, BNP, TSH, VD25, MG, TROPI #### [address] [address] Veterinary Medicine Scientist: Ernesto Miranda MD #### AVITB1 #### [facility] [address] [place] [address] Veterinary Medicine Scientist: Prasanth Haywood MD Glucose [Mass/Vol] 111 mg/dL High 70-99 [facility] Comment on above: Performed By: #### F T4, CP, CDP, LIPR, B12, BNP, TSH, VD25, MG, TROPI #### [address] [address] Veterinary Medicine Scientist: Ernesto Miranda MD #### AVITB1 #### [facility] [address] [place] [address] Veterinary Medicine Scientist: Prasanth Haywood MD Potassium [Moles/Vol] 3.9 mmol/L Normal 3.7-5.3 [facility] Comment on above: Performed By: #### F T4, CP, CDP, LIPR, B12, BNP, TSH, VD25, MG, TROPI #### [address] [address] Veterinary Medicine Scientist: Ernesto Miranda MD #### AVITB1 #### [facility] [address] [place], [place] [id number] Veterinary Medicine Scientist: Prasanth Haywood MD Protein [Mass/Vol] 8.2 g/dL Normal 6.4-8.3 [facility] Comment on above: Performed By: #### F T4, CP, CDP, LIPR, B12, BNP, TSH, VD25, MG, TROPI #### [address] [address] Veterinary Medicine Scientist: Ernesto Miranda MD #### AVITB1 #### [facility] [address] [place] [address] Veterinary Medicine Scientist: Prasanth Haywood MD Sodium [Moles/Vol] 140 mmol/L Normal 135-144 [facility] Comment on above: Performed By: #### F T4, CP, CDP, LIPR, B12, BNP, TSH, VD25, MG, TROPI #### [address] [address] Veterinary Medicine Scientist: Ernesto Miranda MD #### AVITB1 #### [facility] [address] [place] [address] Veterinary Medicine Scientist: rPasanth Haywood MD Urea nitrogen [Mass/Vol] 15 mg/dL Normal 8-23 [facility] Comment on above: Performed By: #### F T4, CP, CDP, LIPR, B12, BNP, TSH, VD25, MG, TROPI #### [address] [id number] Veterinary Medicine Scientist: Ernesto Miranda MD #### AVITB1 #### [facility] [address] [place] [address] Veterinary Medicine Scientist: Prasanth Haywood MD BUN/CRE Ratio NOT REPORTED Normal 9-20 [facility] Comment on above: Performed By: #### F T4, CP, CDP, LIPR, B12, BNP, TSH, VD25, MG, TROPI #### [facility] [address] [place] [id number] Veterinary Medicine Scientist: Ernesto Miranda MD #### AVITB1 #### [facility] [address] [place] [address] Veterinary Medicine Scientist: Prasanth Haywood MD Staging: NOT REPORTED Normal [facility] Comment on above: Performed By: #### F T4, CP, CDP, LIPR, B12, BNP, TSH, VD25, MG, TROPI #### [facility] [address] [place] [id number] Veterinary Medicine Scientist: Ernesto Miranda MD #### AVITB1 #### [facility] [address] [place] [address] Veterinary Medicine Scientist: Prasanth Haywood MD Comprehensive Metabolic Pane lOrdered By: Shazia Bhatti on 12-04-2020 Albumin [Mass/Vol] 4.4 g/dL 3.5 - 5.2 g/dL [facility] Phone: Albumin/Globulin [Mass ratio] 1.2 {ratio} [facility] Phone: ALP (Bld) [Catalytic activity/Vol] 82 U/L 35 - 104 U/L [facility] Phone: ALT [Catalytic activity/Vol] 22 U/L 5 - 33 U/L [facility] Phone: Anion gap [Moles/Vol] 16 mmol/L 9 - 17 mmol/L [facility] Phone: AST [Catalytic activity/Vol] 22 U/L <32 [facility] Phone: Bilirubin [Mass/Vol] 0.43 mg/dL 0.3 - 1 .2 mg/dL [facility] Phone: Calcium [Mass/Vol] 9.3 mg/dL 8.6 - 10. 4 mg/dL [facility] Phone: Chloride [Moles/Vol] 103 mmol/L 98 - 10 7 mmol/L [facility] Phone: CO2 [Moles/Vol] 21 mmol/L 20 - 31 mmol/L [facility] Phone: Creatinine [Mass/Vol] 0.75 mg/dL 0.50 - 0.90 mg/dL [facility] Phone: Free PSA/Total PSA [Mass fraction] 8.2 g/dL 6.4 - 8.3 g/dL [facility] Phone: GFR >60 >60 mL/min [facility] Phone: GFR Non- >60 >60 mL/min [facility] Phone: GFR/1.73 sq M.predicted MDRD (S/P/Bld) [Vol rate/Area] [facility] Phone: Comment on above: Average GFR for 60-6 9 years old: 85 mL/min/1.73sq m Chronic Kidney Disease: <60 mL/min/1.73sq m Kidney failure: <15 mL/min/1.73sq m eGFR calculated using average adult body mass. Additional eGFR calculator available at: http://www.GranData.Olery/multiple_crcl_2012.htm GFR/1.73 sq M.predicted MDRD (S/P/Bld) [Vol rate/Area] NOT REPORTED [facility] Phone: Glucose [Mass/Vol] 111 mg/dL High 70 - 99 mg/dL [facility] Phone: Potassium [Moles/Vol] 3.9 mmol/L 3.7 - 5.3 mmol/L [facility] Phone: Sodium [Moles/Vol] 140 mmol/L 135 - 144 mmol/L [facility] Phone: Urea nitrogen (BldV) [Mass/Vol] 15 mg/dL 8 - 23 mg/dL [facility] Work Phone: Urea nitrogen/Creatinine (Bld) [Mass ratio] NOT REPORTED [facility] Phone: Laboratory - Chemistry and C hemistry - challengeOrdered By: Shazia Bhatti on 12-04-2020 Albumin [Mass/Vol] 4.4 g/dL (3.5-5.2 ) [facility] Work Phone: Comment on above: Note: Responsible Ob water server: CCEV AUTOFILE (3002) ALT [Catalytic activity/Vol] 22 U/L (5-33 ) [facility] Work Phone: Comment on above: Note: Responsible Ob water server: CCEV AUTOFILE (3002) Anion gap [Moles/Vol] 16 mmol/L (9-17 ) [facility] Work Phone: Comment on above: Note: Responsible Ob water server: CCEV AUTOFILE (3002) AST [Catalytic activity/Vol] 22 U/L (<32 ) [facility] Work Phone: Comment on above: Note: Responsible Ob water server: CCEV AUTOFILE (3002) Bilirubin [Mass/Vol] 0.43 mg/dL (0.3-1.2 ) [facility] Work Phone: Comment on above: Note: Responsible Ob water server: CCEV AUTOFILE (3002) Calcium [Mass/Vol] 9.3 mg/dL (8.6-10.4 ) [facility] Work Phone: Comment on above: Note: Responsible Ob water server: CCEV AUTOFILE (3002) Chloride [Moles/Vol] 103 mmol/L (98-107 ) [facility] Work Phone: Comment on above: Note: Responsible Ob water server: CCEV AUTOFILE (3002) Cholesterol [Mass/Vol] 275 mg/dL High (<200 ) [facility] Work Phone: Comment on above: Note: Cholesterol Gu idelines:<200 [id number] Borderline>240 UndesirableResponsible Observer: CCEV AUTOFILE (3002) Cholesterol.total/Naya sterol in HDL [Mass ratio] 5.5 {ratio} High (<5 ) [facility] Work Phone: Comment on above: Note: Responsible Ob water server: CCEV AUTOFILE (3002) CO2 [Moles/Vol] 21 mmol/L (20-31 ) [facility] Work Phone: Comment on above: Note: Responsible Ob water server: CCEV AUTOFILE (3002) Cobalamin (Vitamin B12) [Mass/Vol] 796 pg/mL (232-1245 ) [facility] Work Phone: Comment on above: Note: Responsible Ob water server: CEEV AUTOFILE (3003) Creatinine [Mass/Vol] 0.75 mg/dL (0.50- 0.90 ) [facility] Work Phone: Comment on above: Note: Responsible Ob water server: CCEV AUTOFILE (3002) Glucose [Mass/Vol] 111 mg/dL High (70-99 ) [facility] Work Phone: Comment on above: Note: Responsible Ob water server: CCEV AUTOFILE (3002) Magnesium [Mass/Vol] 2.1 mg/dL (1.6-2.6 ) [facility] Work Phone: Comment on above: Note: Responsible Ob water server: CCEV AUTOFILE (3002) Magnesium [Mass/Vol] 50 mg/dL (>40 ) [facility] Work Phone: Comment on above: Note: HDL Guidelines :<40 [id number] Borderline>59 DesirableResponsible Observer: CCEV AUTOFILE (3002) Magnesium [Mass/Vol] 166 mg/dL High (0-130 ) [facility] Work Phone: Comment on above: Note: LDL Guidelines :<100 [id number] Near to/above Vdwkqfhsi151-368 Borderline>159 UndesirableDirect (measured) LDL and calculated LDL are not interchangeable tests.Responsible Observer: CCEV AUTOFILE (3002) Natriuretic peptide B (Bld) [Mass/Vol] 143 pg/mL (<300 ) [facility] Work Phone: Comment on above: Note: Pro-BNP result s cannot be compared to BNP results.Responsible Observer: ARSENIO ANDRADE (1414) Potassium [Moles/Vol] 3.9 mmol/L (3.7-5.3 ) [facility] Work Phone: Comment on above: Note: Responsible Ob water server: CCEV AUTOFILE (3002) Protein [Mass/Vol] 8.2 g/dL (6.4-8.3 ) [facility] Work Phone: Comment on above: Note: Responsible Ob water server: CCEV AUTOFILE (3002) Sodium [Moles/Vol] 140 mmol/L (135-144 ) [facility] Work Phone: Comment on above: Note: Responsible Ob water server: CCEV AUTOFILE (3002) Triglyceride [Mass/Vol] 296 mg/dL High (<150 ) [facility] Work Phone: Comment on above: Note: Triglyceride G uidelines:<150 Gehywzjce506-782 [id number] High>499 Very highBased on AHA Guidelines for fasting triglyceride, March 2012.Responsible Observer: CCEV AUTOFILE (3002) Urea nitrogen [Mass/Vol] 15 mg/dL (8-23 ) [facility] Work Phone: Comment on above: Note: Responsible Ob water server: CCEV AUTOFILE (6913) Laboratory - Hematology and Cell countsOrdered By: Shazia Bhatti on 12-04-2020 Basophils/100 WBC (Bld) 0 % (0-2 ) [facility] Comment on above: Note: Responsible Ob water server: HOLLY CRUZ (7120) Eosinophils (Bld) [#/Vol] 0.00 10*3/uL (0.0-0.4 ) [facility] Work Phone: Comment on above: Note: Responsible Ob water server: HOLLY CRUZ (9240) Eosinophils/100 WBC (Bld) 0 % Low (1-4 ) [facility] Work Phone: Comment on above: Note: Responsible Ob water server: HOLLY CRUZ (1213) Erythrocyte distribution width (RBC) [Ratio] 12.8 % (11.8-14.4 ) [facility] Work Phone: Comment on above: Note: Responsible Ob water server: MONICA KAUFFMAN (1334) Hematocrit (Bld) [Volume fraction] 48.3 % High (36.3-47.1 ) [facility] Work Phone: Comment on above: Note: Responsible Ob water server: MONICA KAUFFMAN (4664) Hemoglobin (Bld) [Mass/Vol] 15.3 g/dL High (11.9-15.1 ) [facility] Work Phone: Comment on above: Note: Responsible Ob water server: MONICA KAUFFMAN (3064) Immature granulocytes/100 WBC (Bld) 0 % (0 ) [facility] Work Phone: Comment on above: Note: Responsible Ob water server: HOLLY CRUZ (0566) Lymphocytes (Bld) [#/Vol] 6.12 10*3/uL High (1.0-4.8 ) [facility] Work Phone: Comment on above: Note: R/O Chronic Ly mphoproliferative Disorder,recommend peripheral blood Flow Cytometry,if clinically indicated.Responsible Observer: HOLLY CRUZ (182) Lymphocytes/100 WBC (Bld) 60 % High (24-44 ) [facility] Work Phone: Comment on above: Note: Responsible Ob water server: HOLLY CRUZ (0728) MCH (RBC) [Entitic mass] 29.4 pg (25.2-33.5 ) [facility] Work Phone: Comment on above: Note: Responsible Ob water server: MONICA KAUFFMAN (6834) MCHC (RBC) [Mass/Vol] 31.7 g/dL (28.4- 34.8 ) [facility] Work Phone: Comment on above: Note: Responsible Ob water server: MONICA KAUFFMAN (8347) MCV (RBC) [Entitic vol] 92.7 fL (82. 6-102. 9 ) [facility] Work Phone: Comment on above: Note: Responsible Ob water server: MONICA KAUFFMAN (9912) Monocytes (Bld) [#/Vol] 0.20 10*3/uL (0.1-0.8 ) [facility] Work Phone: Comment on above: Note: Responsible Ob water server: HOLLY CRUZ (620) Monocytes/100 WBC (Bld) 2 % (1-7 ) [facility] Comment on above: Note: Responsible Ob water server: HOLLY CRUZ (952) Morphology Yeison (Bld) [Interp] Normal [facility] Work Phone: Comment on above: Note: Responsible Ob water server: HOLLY CRUZ (5298) Platelet mean volume (Bld) [Entitic vol] 10.2 fL (8.1-13.5 ) [facility] Work Phone: Comment on above: Note: Responsible Ob water server: MONICA KAUFFMAN (1848) Platelets (Bld) [#/Vol] 358 10*3/uL (138-453 ) [facility] Work Phone: Comment on above: Note: Responsible Ob water server: MONICA JAMARI (1126) RBC (Bld) [#/Vol] 5.21 10*6/uL High (3.95-5.11 ) [facility] Work Phone: Comment on above: Note: Responsible Ob water server: MONICA KAUFFMAN (2622) RBC morphology finding Nom (Bld) NOT REPORTED [facility] Work Phone: Segmented neutrophils/100 WBC (Bld) 38 % (36-66 ) [facility] Work Phone: Comment on above: Note: Responsible Ob water server: HOLLY CRUZ (5688) WBC (Bld) [#/Vol] 10.2 10*3/uL (3.5-11.3 ) [facility] Work Phone: Comment on above: Note: Responsible Ob water server: MONICA KAUFFMAN (6442) Lipid PanelOrdered By: Ramonita Bhatti on 12-04-2020 Cholesterol [Mass/Vol] 275 mg/dL High <200 [facility] Phone: Comment on above: Cholesterol Guidelines: <200 Desirable 200-240 Borderline >240 Undesirable Cholesterol in HDL [Mass/Vol] 50 mg/dL >40 [facility] Phone: Comment on above: HDL Guidelines: <40 Undesirable 40-59 Borderline >59 Desirable Cholesterol in LDL [Mass/Vol] 166 mg/dL High 0 - 130 mg/dL [facility] Phone: Comment on above: LDL Guidelines: <100 Desirable 100-129 Near to/above Desirable 130-159 Borderline >159 Undesirable Direct (measured) LDL and calculated LDL are not interchangeable tests. Cholesterol in VLDL [Mass/Vol] NOT REPORTED High 1 - 30 mg/dL [facility] Phone: Cholesterol.total/Naya sterol in HDL [Mass ratio] 5.5 {ratio} High <5 [facility] Work Phone: Triglyceride [Mass/Vol] 296 mg/dL High <150 [facility] Work Phone: Comment on above: Triglyceride Guidelines: <150 Desirable 150-199 Borderline 200-499 High >499 Very high Based on AHA Guidelines for fasting triglyceride, March 2012. Lipid Profileon 12-04-2020 Cholesterol [Mass/Vol] 275 mg/dL High <200 [facility] Comment on above: Result Comment: Cholesterol Guidelines: <200 Desirable 200-240 Borderline >240 Undesirable Performed By: #### F T4, CP, CDP, LIPR, B12, BNP, TSH, VD25, MG, TROPI #### [facility] [address] [place] [address] [id number] Veterinary Medicine Scientist: Ernesto Miranda MD #### AVITB1 #### [facility] [address] [place], [place] [id number] Veterinary Medicine Scientist: Prasanth Haywood MD Cholesterol in HDL [Mass/Vol] 50 mg/dL Normal >40 [facility] Comment on above: Result Comment: HDL Guidelines: <40 Undesirable 40-59 Borderline >59 Desirable Performed By: #### F T4, CP, CDP, LIPR, B12, BNP, TSH, VD25, MG, TROPI #### [facility] [address] [place] [address] [id number] Veterinary Medicine Scientist: Ernesto Miranda MD #### AVITB1 #### [facility] [address] [place], [place] [id number] Veterinary Medicine Scientist: Prasanth Haywood MD Cholesterol in LDL [Mass/Vol] 166 mg/dL High 0-130 [facility] Comment on above: Result Comment: LDL Guidelines: <100 Desirable 100-129 Near to/above Desirable 130-159 Borderline >159 Undesirable Direct (measured) LDL and calculated LDL are not interchangeable tests. Performed By: #### F T4, CP, CDP, LIPR, B12, BNP, TSH, VD25, MG, TROPI #### [address] [id number] Veterinary Medicine Scientist: Ernesto Miranda MD #### AVITB1 #### [facility] [address] [place], [place] [id number] Veterinary Medicine Scientist: Prasanth Haywood MD Cholesterol.total/Naya sterol in HDL [Mass ratio] 5.5 {ratio} High <5 [facility] Comment on above: Performed By: #### F T4, CP, CDP, LIPR, B12, BNP, TSH, VD25, MG, TROPI #### [address] [address] Veterinary Medicine Scientist: Ernesto Miranda MD #### AVITB1 #### [address] [phone] Veterinary Medicine Scientist: Prasanth Haywood MD Triglyceride [Mass/Vol] 296 mg/dL High <150 M [facility] Comment on above: Result Comment: Triglyceride Guidelines: <150 Desirable 150-199 Borderline 200-499 High >499 Very high Based on AHA Guidelines for fasting triglyceride, March 2012. Performed By: #### F T4, CP, CDP, LIPR, B12, BNP, TSH, VD25, MG, TROPI #### [address] [address] Veterinary Medicine Scientist: Ernesto Miranda MD #### AVITB1 #### [facility] [address] [place], [place] [id number] Veterinary Medicine Scientist: Prasanth Haywood MD Cholesterol,VLDL NOT REPORTED Normal 07-20 [facility] Comment on above: Performed By: #### F T4, CP, CDP, LIPR, B12, BNP, TSH, VD25, MG, TROPI #### [address] [address] Veterinary Medicine Scientist: Ernesto Miranda MD #### AVITB1 #### [facility] [address] [place] [address] Veterinary Medicine Scientist: Prasanth Haywood MD Magnesiumon 12-04-2020 Magnesium [Mass/Vol] 2.1 mg/dL Normal 1.6-2.6 [facility] Comment on above: Performed By: #### F T4, CP, CDP, LIPR, B12, BNP, TSH, VD25, MG, TROPI #### [facility] [address] [place] [address] Veterinary Medicine Scientist: Ernesto Miranda MD #### AVITB1 #### [facility] [address] [place] [address] Veterinary Medicine Scientist: Prasanth Haywood MD MagnesiumOrdered By: Shazia Bhatti on 12-04-2020 Magnesium [Mass/Vol] 2.1 mg/dL 1.6 - 2 .6 mg/dL [facility] Phone: No Panel InformationOrdered By: Shazia Bhatti on 12-04-2020 Interpretation and review of laboratory results Abnormal [facility] Phone: [facility] Phone: [facility] Phone: (cont.) See Note [facility] [employer] [facility] Work Phone: Comment on above: Note: Average GFR fo r 60-69 years old:85 mL/min/1.73sq mChronic Kidney Disease:<60 mL/min/1.73sq mKidney failure:<15 mL/min/1.73sq meGFR calculated using average adult body mass. Additional eGFR calculatoravailable at:http://www.GranData.Olery/multiple_crcl_2012.htmResponsible Observer: FLORENCIO AUTOFILE (5189) Abs. Basophil 0.00 k/uL (0.0-0.2 ) [facility] [employer] [facility] Work Phone: Comment on above: Note: Responsible Ob water server: HOLLY CRUZ (1170) Abs.Imm.Granulocyte 0.00 k/uL (0.00-0. 30 ) [facility] Work Phone: Comment on above: Note: Responsible Ob water server: HOLLY CRUZ (3570) Abs.Neutrophil (Seg) 3.88 k/uL (1.8-7.7 ) [facility] Work Phone: Comment on above: Note: Responsible Ob water server: HOLLY CRUZ (7740) Albumin/Glob Ratio 1.2 (1.0-2.5 ) [facility] Work Phone: Comment on above: Note: Responsible Ob water server: CCEV AUTOFILE (3002) Alkaline Phos 82 U/L (35-104 ) [facility] Work Phone: Comment on above: Note: Responsible Ob water server: CCEV AUTOFILE (3002) Auto Diff Performed NOT REPORTED [facility] Work Phone: BNP Interpretation Pro-BNP Reference Range: [facility] Work Phone: Comment on above: Note: Rule Out: <300 [place] Zone:Age <50 300-450Age 50-75 300-900Age >75 300-1800Usually represents mild to moderate HF but other cardiopulmonary causes cannotbe ruled out.Rule In:Age <50 >450Age 50-75 >900Age >75 >1800Responsible Observer: ARSENIO ANDRADE (2572) BUN/CRE Ratio NOT REPORTED (9-20 ) [facility] Work Phone: Cholesterol,VLDL NOT REPORTED mg/dL (1-30 ) [facility] Work Phone: GFR, Amer >60 mL/min (>60 ) [facility] Work Phone: Comment on above: Note: Responsible Ob water server: CCEV AUTOFILE (3002) GFR,non Amer >60 mL/min (>60 ) [facility] Work Phone: Comment on above: Note: Responsible Ob water server: CCEV AUTOFILE (3204) NRBC Automated 0.0 per_100_WBC (0.0 ) [facility] Work Phone: Comment on above: Note: Responsible Ob water server: MONICA KAUFFMAN (9857) Platelet Estimate NOT REPORTED [facility] Work Phone: Reported Physicians See Note [facility] Work Phone: Comment on above: Note: Reported Physi cians:Ordering: Shazia BhattiAttending: Shazia BhattiReferring: Shazia Bhatti Staging: NOT REPORTED [facility] Work Phone: Thyroid Stim. Horm. 2.22 mIU/L (0.30-5. 00 ) [facility] Work Phone: Comment on above: Note: Responsible Ob water server: ARSENIO ANDRADE (5632) Thyroxine, Free 1.02 ng/dL (0.93-1.70 ) [facility] Work Phone: Comment on above: Note: Responsible Ob water server: ARSENIO ANDRADE (0509) Troponin Interp. NOT REPORTED [facility] Work Phone: Troponin T NOT REPORTED ng/mL (<0.03 ) [facility] Work Phone: Troponin, High Sens <6 ng/L (0-14 ) [facility] Work Phone: Comment on above: Note: High Sensitivi ty Troponin values cannot be compared with other Troponinmethodologies.Patients with high levels of Biotin oral intake (i.e >5mg/day) may have falselydecreased Troponin levels. Samples collected within 8 hours of biotin intakemay require additional information for diagnosis.Responsible Observer: ARSENIO ANDRADE (5586) Vitamin B1 114 nmol/L (70-180 ) [facility] Work Phone: Comment on above: Note: (NOTE)INTERPRE TIVE INFORMATION: Vitamin B1, Whole BloodThis assay measures the concentration of thiamine diphosphate(TDP), the primary active form of vitamin B1. Approximately 90percent of vitamin B1 present in whole blood is TDP. Thiamine andthiamine monophosphate, which comprise the remaining 10 percent,are not measured.This test was developed and its performance characteristicsdetermined by [facility]. It has not been cleared orapproved by the [place] Food and Drug Administration. This test wasperformed in a CLIA certified laboratory and is intended forclinical purposes.Performed By: [facility] [place] [id number] Director: ELMA Wilsonesponsible Observer: LAB ANTONIO (30) Vitamin D 25 OH 50.2 ng/mL (30.0-100. 0 ) [facility] [employer] [facility] Work Phone: Comment on above: Note: Reference Rang e:Vitamin D status RangeDeficiency <20 ng/mLMild Deficiency 20-30 ng/mLSufficiency 30-100 ng/mLToxicity >100 ng/mLResponsible Observer: ARSENIO ANDRADE (4199) WBC Morphology NOT REPORTED [facility] Work Phone: T4, FreeOrdered By: Shazia stewart on 12-04-2020 Thyroxine, Free 1.02 ng/dL 0.93 - 1.70 ng/dL [facility] Phone: TSH without ReflexOrdered By : Shazia Bhatti on 12-04-2020 TSH Qn 2.22 m[IU]/L [facility] Phone: Thyroid Stim. Horm.on 2020 TSH Qn 2.22 m[IU]/L Normal 0.30-5.00 [facility] Comment on above: Performed By: #### F T4, CP, CDP, LIPR, B12, BNP, TSH, VD25, MG, TROPI #### [facility] [address] [place] [id number] Veterinary Medicine Scientist: Ernesto Miranda MD #### AVITB1 #### [facility] [address] [place] [address] Veterinary Medicine Scientist: Prasanth Haywood MD Thyroxine, Freeon 12-04-2020 Thyroxine, Free 1.02 ng/dL Normal 0.93-1.70 [facility] Comment on above: Performed By: #### F T4, CP, CDP, LIPR, B12, BNP, TSH, VD25, MG, TROPI #### [address] [address] Veterinary Medicine Scientist: Ernesto Miranda MD #### AVITB1 #### [address] [id number] Veterinary Medicine Scientist: Prasanth Haywood MD Troponinon 12-04-2020 Troponin, High Sens <6 Normal 0-14 [facility] Comment on above: Result Comment: High Sensitivity Troponin values cannot be compared with other Troponin methodologies. Patients with high levels of Biotin oral intake (i.e >5mg/day) may have falsely decreased Troponin levels. Samples collected within 8 hours of biotin intake may require additional information for diagnosis. Performed By: #### F T4, CP, CDP, LIPR, B12, BNP, TSH, VD25, MG, TROPI #### [address] [address] Veterinary Medicine Scientist: Ernesto Miranda MD #### AVITB1 #### [facility] [address] [place] [address] [id number] Veterinary Medicine Scientist: Prasanth Haywood MD Troponin Interp. NOT REPORTED Normal [facility] Comment on above: Performed By: #### F T4, CP, CDP, LIPR, B12, BNP, TSH, VD25, MG, TROPI #### [address] [phone] Veterinary Medicine Scientist: Ernesto Miranda MD #### AVITB1 #### [facility] [address] [place] [address] Veterinary Medicine Scientist: Prasanth Haywood MD Troponin T NOT REPORTED Normal <0.03 [facility] Comment on above: Performed By: #### F T4, CP, CDP, LIPR, B12, BNP, TSH, VD25, MG, TROPI #### [facility] [address] [place] [address] Veterinary Medicine Scientist: Ernesto Miranda MD #### AVITB1 #### [facility] [address] [place] [address] Veterinary Medicine Scientist: Prasanth Haywood MD TroponinOrdered By: Shazia stewart on 12-04-2020 Troponin Interp NOT REPORTED [facility] Phone: Troponin T NOT REPORTED <0.03 ng/mL [facility] Phone: Troponin, High Sensitivity <6 0 - 14 ng/L [facility] Phone: Comment on above: High Sensitivity Troponin values cannot be compared with other Troponin methodologies. Patients with high levels of Biotin oral intake (i.e >5mg/day) may have falsely decreased Troponin levels. Samples collected within 8 hours of biotin intake may require additional information for diagnosis. Vitamin B12on 12-04-2020 Cobalamin (Vitamin B12) [Mass/Vol] 796 pg/mL Normal 232-1245 [facility] Comment on above: Performed By: #### F T4, CP, CDP, LIPR, B12, BNP, TSH, VD25, MG, TROPI #### [facility] [place] [address] Veterinary Medicine Scientist: Ernesto Miranda MD #### AVITB1 #### [facility] [address] [place] [address] Veterinary Medicine Scientist: Prasanth Haywood MD Vitamin [id number] By: Ramonita Bhatti on 12-04-2020 Cobalamin (Vitamin B12) [Mass/Vol] 796 pg/mL 232 - 1245 pg/mL [facility] Phone: [facility] Phone: Vitamin D 25 HydroxyOrdered By: Shazia Bhatti on 12-04-2020 Vit D, 25-Hydroxy 50.2 ng/mL 30.0 - 100.0 ng/mL [facility] Phone: Comment on above: Reference Range: Vitamin D status Range Deficiency <20 ng/mL Mild Deficiency 20-30 ng/mL Sufficiency 30-100 ng/mL Toxicity >100 ng/mL [facility] Phone: Vitamin D 25 OHon 12-04-2020 Vitamin D 25 OH 50.2 ng/mL Normal 30.0-100.0 [facility] Comment on above: Result Comment: Reference Range: Vitamin D status Range Deficiency <20 ng/mL Mild Deficiency 20-30 ng/mL Sufficiency 30-100 ng/mL Toxicity >100 ng/mL Performed By: #### F T4, CP, CDP, LIPR, B12, BNP, TSH, VD25, MG, TROPI #### [facility] [address] [place], [place] [id number] Veterinary Medicine Scientist: Ernesto Miranda MD #### AVITB1 #### [facility] [address] [place] [address] Veterinary Medicine Scientist: Prasanth Haywood MD Other 01-20-2018 0=No Invalid Interpretation Code [employer] [facility] Work Phone: 1=Yes Invalid Interpretation Code [employer] [facility] Work Phone: 0 Invalid Interpretation Code [employer] [facility] Work Phone: 1=Controlled Invalid Interpretation Code [employer] [facility] Work Phone: Risk Level 1=3 or < Invalid Interpretation Code [employer] [facility] Work Phone: 0= N/A Invalid Interpretation Code [employer] [facility] Work Phone: 0-N/A Invalid Interpretation Code [employer] [facility] Work Phone: 3 Invalid Interpretation Code [employer] [facility] Work Phone: 7 Invalid Interpretation Code [facility] Work Phone: Current Invalid Interpretation Code [facility] Work Phone: tjm Invalid Interpretation Code [facility] Work Phone: Otheron 10-22-2017 0= N/A Invalid Interpretation Code [facility] Work Phone: 3 Invalid Interpretation Code [facility] Work Phone: 0 Invalid Interpretation Code [facility] [facility] Work Phone: 0=No Invalid Interpretation Code [facility] Work Phone: 1=Yes Invalid Interpretation Code [facility] Work Phone: 1=Controlled Invalid Interpretation Code [facility] Work Phone: 0-N/A Invalid Interpretation Code [facility] Work Phone: Risk Level 1=3 or < Invalid Interpretation Code [facility] Work Phone: Cardiacon 10-21-2017 Cholesterol in HDL mass conc 41.0 mg/dL Invalid Interpretation Code >39 [facility] [facility] Work Phone: Cholesterol in LDL mass conc 136.0 mg/dL Invalid Interpretation Code <100 [facility] [facility] Work Phone: Triglyceride mass conc 409.0 mg/dL Invalid Interpretation Code <150 [facility] [employer] [facility] Work Phone: Hematologyon 10-21-2017 Basophils Auto #/vol (Bld) 0.8 % Invalid Interpretation Code [facility] [facility] Work Phone: Basophils/100 WBC Auto (Bld) 0.1 K/uL Invalid Interpretation Code 0.0-0.1 [facility] [facility] Work Phone: Eosinophils/100 WBC Auto (Bld) 3.6 % Invalid Interpretation Code [facility] [facility] Work Phone: Erythrocyte distribution width Auto Ratio (RBC) 12.7 % Invalid Interpretation Code 10.8-14.8 [facility] [employer] [facility] Work Phone: [phone] Hematocrit Auto Volume Fraction (Bld) 43.80 % Invalid Interpretation Code 36.0-48.0 [facility] Work Phone: Hemoglobin S Solubility test Ql (Bld) 15.1 Invalid Interpretation Code 12.0-16.0 [facility] Work Phone: [phone] Lymphocytes/100 WBC Auto (Bld) 36.7 % Invalid Interpretation Code [facility] Work Phone: MCH Auto Entitic mass (RBC) 31.6 pg Invalid Interpretation Code 27.0-34.0 [facility] Work Phone: [phone] MCHC Auto mass conc (RBC) 34.5 g/dL Invalid Interpretation Code 31.0-36.0 [facility] Work Phone: MCV Auto Entitic volume (RBC) 91.6 fL Invalid Interpretation Code 80.-100. [facility] Work Phone: Monocytes/100 WBC Auto (Bld) 8.9 % Invalid Interpretation Code [facility] Work Phone: [phone] Neutrophils/100 WBC Auto (Bld) 49.5 % Invalid Interpretation Code [facility] Work Phone: Nucleated RBC/100 WBC Ratio (Bld) 0.4 10*3/uL Invalid Interpretation Code 0.1-0.4 [facility] [employer] Phone: Nucleated RBC/100 WBC Ratio (Bld) 3.7 10*3/uL Invalid Interpretation Code 0.8-5.2 [facility] Work Phone: Nucleated RBC/100 WBC Ratio (Bld) 0.9 10*3/uL Invalid Interpretation Code 0.1-0.9 [facility] Work Phone: Nucleated RBC/100 WBC Ratio (Bld) 5.0 10*3/uL Invalid Interpretation Code 1.3-9.1 [facility] [employer] Phone: RBC Auto #/vol (Bld) 4.780 10*6/uL Invalid Interpretation Code 4.00-5.50 [facility] Work Phone: Metabolic Panelon 10-21-2017 Albumin mass conc 4.10 g/dL Invalid Interpretation Code 3.5-5.2 [facility] Work Phone: ALP enzyme act/vol 88 U/L Invalid Interpretation Code 30-121 [facility] Work Phone: ALT enzyme act/vol 30 U/L Invalid Interpretation Code 5-40 [facility] Work Phone: Anion gap 3 molar conc 12 mmol/L Invalid Interpretation Code 10-19 [facility] Work Phone: AST enzyme act/vol 31 U/L Invalid Interpretation Code 9-40 [facility] Work Phone: Calcium mass conc 8.90 mg/dL Invalid Interpretation Code 8.5-10.5 [facility] Work Phone: Chloride molar conc 100 mmol/L Invalid Interpretation Code 95-107 [facility] Work Phone: CO2 molar conc 29 mmol/L Invalid Interpretation Code 19-31 [facility] Work Phone: Creatinine mass conc 1.20 mg/dL Invalid Interpretation Code 0.6-1.3 [facility] Work Phone: Glucose mass conc 96 mg/dL Invalid Interpretation Code 70-99 [facility] Work Phone: Potassium molar conc 4.60 mmol/L Invalid Interpretation Code 3.5-5.4 [facility] Work Phone: Protein mass conc 6.8 g/dL Invalid Interpretation Code 6.1-8.3 [facility] Work Phone: Sodium molar conc 141 mmol/L Invalid Interpretation Code 135-146 [facility] Work Phone: Urea nitrogen mass conc 21.0 mg/dL Invalid Interpretation Code 8-23 [facility] Work Phone: Otheron 10-21-2017 Bilirubin Ql (U) 0.3 Invalid Interpretation Code <1.3 [facility] Work Phone: Cholesterol crystals Infrared spectroscopy Ql (Stone) 237 mg/dL Invalid Interpretation Code <200 [facility] Work Phone: Cholesterol.total/Naya sterol in HDL mass ratio 5.8 {ratio} Invalid Interpretation Code <5 [facility] Work Phone: WBC LM Ql (Sput) 10.1 Invalid Interpretation Code 3.7-10.8 [facility] Work Phone: [phone] Invalid Interpretation Code 150.-450. [facility] Work Phone: 57.3 Invalid Interpretation Code >59 [facility] Work Phone: 49.4 Invalid Interpretation Code >59 [facility] Work Phone: DRUG ABUSE SCREENon 02-17-20 17 AMPHETAMINE/METHAMPH Negative Normal NEGATIVE [facility] Comment on above: Performed By: #### T OXPN, GIP ####[facility] [address] [place] [address] BARBITURATE Negative Normal NEGATIVE [facility] Comment on above: Performed By: #### T OXPN, GIP ####[facility] [address] [place] [address] COCAINE METABOLITE Negative Normal NEGATIVE [facility] Comment on above: Performed By: #### T OXPN, GIP ####[facility] [address] [place] [address] OXYCODONE Negative Normal NEGATIVE [facility] Comment on above: Performed By: #### T OXPN, GIP ####[facility] [employer] [facility] [address] [place] [address] Urine, benzodiazepines presence Negative Normal NEGATIVE [facility] Comment on above: Performed By: #### T OXPN, GIP ####[facility] [address] [place] [address] Urine, cannabinoids presence Negative Normal NEGATIVE [facility] Comment on above: Performed By: #### T OXPN, GIP ####[facility] [address] [place] [address] Urine, opiates presence Negative Normal NEGATIVE [facility] Comment on above: Performed By: #### T OXPN, MAYNOR ####[employer] [address] [place] [address] Urine, phencyclidine presence Negative Normal NEGATIVE [facility] Comment on above: Result Comment: A N [...] medical use only. Performed By: #### T JOSE, MAYNOR ####[facility] [employer] [address] [place] [address] ED Noteon 02-16-2017 HIM IP Note OR 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 Normal [facility] HIM IP Note OR 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 Normal [facility] HIM IP Note OR 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 Normal [facility] POTASSIUMon 02-16-2017 Potassium molar conc 3.9 mmol/L Normal 3.5-5.2 [facility] Comment on above: Performed By: #### K P ####[facility] [employer] [address] [place] [address] UA WITH MICROSCOPICon 2016 EPITHELIAL 10 /hpf Normal 3-5/hpf [facility] Comment on above: Performed By: #### U RCS2 ####[employer] [address] [place] [address] Erythrocytes (RBC) 25 /hpf Normal 0-2/hpf [facility] Comment on above: Performed By: #### U RCS2 ####[employer] [address] [place] [address] Urine, bacteria in sediment FEW Normal FEW/NONE S [facility] Comment on above: Performed By: #### U RCS2 ####[employer] [address] [place] [address] Urine, casts in sediment NONE SEEN Normal NONE SEEN [facility] Comment on above: Performed By: #### U RCS2 ####[facility] [address] [place] [address] Urine, crystals in sediment NONE SEEN Normal NONE SEEN [facility] Comment on above: Performed By: #### U RCS2 ####[facility] [address] [place] [address] WBC (Leukocytes) 2 /hpf Normal 0-4/hpf [facility] Comment on above: Performed By: #### U RCS2 ####[facility] [address] [place] [address] Bilirubin Ql (U) Negative Normal NEGATIVE [facility] Comment on above: Performed By: #### U RCS2 ####[facility] [employer] [facility] [address] [place] [address] BLOOD MODERATE Abnormal NEGATIVE [facility] Comment on above: Performed By: #### U RCS2 ####[facility] [employer] [facility] [address]yp[address] [place] [address] Glucose mass conc Negative Normal NEGATIVE [facility] Comment on above: Performed By: #### U RCS2 ####[facility] [employer] [facility] [address] [place] [address] pH of blood 6.5 [pH] Normal 5.0 - 9.0 [facility] Comment on above: Performed By: #### U RCS2 ####[facility] [employer] [facility] [address] [place] [address] Protein Negative Normal NEGATIVE [facility] Comment on above: Performed By: #### U RCS2 ####[facility] [employer] [facility] [address] [place] [address] Urine, character CLOUDY Abnormal CLEAR-SL C [facility] Comment on above: Performed By: #### U RCS2 ####[facility] [address] [place] [address] Urine, color YELLOW Normal STRAW-YELL [facility] Comment on above: Performed By: #### U RCS2 ####[facility] [employer] [facility] [address] [facility] [place] [address] Urine, ketones presence Negative Normal NEGATIVE [facility] Comment on above: Performed By: #### U RCS2 ####[facility] [address] [place] [address] Urine, nitrite presence Negative Normal NEGATIVE [facility] Comment on above: Performed By: #### U RCS2 ####[facility] [address] [place] [address] Urine, specific gravity 1.019 Normal 1.002-1.03 [facility] Comment on above: Performed By: #### U RCS2 ####[facility] [address] [place] [address] Urine, urobilinogen 1.0 {Ivan'U}/dL Normal 0.0 - 1. 0 [facility] Comment on above: Performed By: #### U RCS2 ####[facility] [place] [address] WBC (Leukocytes) Negative Normal NEGATIVE [facility] Comment on above: Performed By: #### U RCS2 ####[facility] [place] [address] XR ABDOMEN LIMITED (KUB)on 0 02-16-2017 XR [...] by:PHONG Kaplanigned by:Corinne Mendoza MD02/15/17Final result Normal [facility] ANION GAPon 02-15-2017 Anion gap 13.0 mmol/L Normal 8.0-16.0 [facility] Comment on above: Result Comment: ANIO N GAP = Sodium -(Chloride + CO2) Performed By: #### C BC, BMP, HEPPA, LIPAS, ETOHS, ANION, OSMOL, EGFR1, TROPT ####[facility] [address] [place] [address] BASIC METABOL PANELon 2016 Calcium 9.3 mg/dL Normal 8.5-10.5 [facility] Comment on above: Performed By: #### C BC, BMP, HEPPA, LIPAS, ETOHS, ANION, OSMOL, EGFR1, TROPT ####[facility] [address] [place] [address] Chloride 98 mmol/L Normal 98-111 [facility] Comment on above: Performed By: #### C BC, BMP, HEPPA, LIPAS, ETOHS, ANION, OSMOL, EGFR1, TROPT ####[facility] [employer] [address] [place] [address] CO2 25 mmol/L Normal 23-33 [facility] Comment on above: Performed By: #### C BC, BMP, HEPPA, LIPAS, ETOHS, ANION, OSMOL, EGFR1, TROPT ####[facility] [employer] [address] [place] [address] Creatinine 0.7 mg/dL Normal 0.4-1.2 [facility] Comment on above: Performed By: #### C BC, BMP, HEPPA, LIPAS, ETOHS, ANION, OSMOL, EGFR1, TROPT ####[facility] [employer] [address] [place] [address] Glucose mass conc 105 mg/dL Normal 70-108 [facility] Comment on above: Performed By: #### C BC, BMP, HEPPA, LIPAS, ETOHS, ANION, OSMOL, EGFR1, TROPT ####[facility] [employer] [address] [place] [address] Potassium molar conc 5.3 mmol/L High 3.5-5.2 [facility] Comment on above: Performed By: #### C BC, BMP, HEPPA, LIPAS, ETOHS, ANION, OSMOL, EGFR1, TROPT ####[address] [place] [address] Sodium 136 mmol/L Normal 135-145 [facility] Comment on above: Performed By: #### C BC, BMP, HEPPA, LIPAS, ETOHS, ANION, OSMOL, EGFR1, TROPT ####[place] [address] Urea nitrogen 10 mg/dL Normal 7-22 [facility] Comment on above: Performed By: #### C BC, BMP, HEPPA, LIPAS, ETOHS, ANION, OSMOL, EGFR1, TROPT ####[place] [address] CALCULATED OSMOLALITYon 01-20 Osmolality 271.4 mOsmol/kg Low 275.0-300. [facility] Comment on above: Performed By: #### C BC, BMP, HEPPA, LIPAS, ETOHS, ANION, OSMOL, EGFR1, TROPT ####[place] [address] CBC WITH DIFFERENTIALon 01-20 Basophils Auto #/vol (Bld) 0.2 thou/mm3 High 0.0-0.1 [facility] Comment on above: Performed By: #### C BC, BMP, HEPPA, LIPAS, ETOHS, ANION, OSMOL, EGFR1, TROPT ####[place] [address] Basophils/100 WBC Auto (Bld) 1.5 % Normal [facility] Comment on above: Performed By: #### C BC, BMP, HEPPA, LIPAS, ETOHS, ANION, OSMOL, EGFR1, TROPT ####[place] [address] Eosinophils 0.4 thou/mm3 Normal 0.0-0.4 [facility] Comment on above: Performed By: #### C BC, BMP, HEPPA, LIPAS, ETOHS, ANION, OSMOL, EGFR1, TROPT ####[address] [place] [address] Eosinophils/100 leukocytes 3.3 % Normal [facility] Comment on above: Performed By: #### C BC, BMP, HEPPA, LIPAS, ETOHS, ANION, OSMOL, EGFR1, TROPT ####[place] [address] Erythrocyte distribution width Auto Ratio (RBC) 14.3 % Normal 11.5-14.5 [facility] Comment on above: Performed By: #### C BC, BMP, HEPPA, LIPAS, ETOHS, ANION, OSMOL, EGFR1, TROPT ####[place] [address] Erythrocytes (RBC) 0 /100 wbc Normal [facility] Comment on above: Performed By: #### C BC, BMP, HEPPA, LIPAS, ETOHS, ANION, OSMOL, EGFR1, TROPT ####[place] [address] Erythrocytes (RBC) 5.32 mill/mm3 Normal 4.20-5.40 [facility] Comment on above: Performed By: #### C BC, BMP, HEPPA, LIPAS, ETOHS, ANION, OSMOL, EGFR1, TROPT ####[place] [address] Hematocrit (HCT) 49.0 % High 37.0-47.0 [facility] Comment on above: Performed By: #### C BC, BMP, HEPPA, LIPAS, ETOHS, ANION, OSMOL, EGFR1, TROPT ####[place] [address] Hemoglobin mass conc (Bld) 16.4 gm/dl High 12.0-16.0 [facility] Comment on above: Performed By: #### C BC, BMP, HEPPA, LIPAS, ETOHS, ANION, OSMOL, EGFR1, TROPT ####[place] [address] Lymphocytes 4.2 thou/mm3 Normal 1.0-4.8 [facility] Comment on above: Performed By: #### C BC, BMP, HEPPA, LIPAS, ETOHS, ANION, OSMOL, EGFR1, TROPT ####[facility] [address] [place] [address] Lymphocytes/100 leukocytes 36.7 % Normal [facility] Comment on above: Performed By: #### C BC, BMP, HEPPA, LIPAS, ETOHS, ANION, OSMOL, EGFR1, TROPT ####[facility] [place] [address] MCH 30.9 pg Normal 27.0-31.0 [facility] Comment on above: Performed By: #### C BC, BMP, HEPPA, LIPAS, ETOHS, ANION, OSMOL, EGFR1, TROPT ####[address] [place] [address] MCHC mass conc (RBC) 33.5 gm/dl Normal 33.0-37.0 [facility] Comment on above: Performed By: #### C BC, BMP, HEPPA, LIPAS, ETOHS, ANION, OSMOL, EGFR1, TROPT ####[address] [place] [address] MCV 92.2 fL Normal 81.0-99.0 [facility] Comment on above: Performed By: #### C BC, BMP, HEPPA, LIPAS, ETOHS, ANION, OSMOL, EGFR1, TROPT ####[address] [place] [address] Monocytes 1.2 thou/mm3 Normal 0.4-1.3 [facility] Comment on above: Performed By: #### C BC, BMP, HEPPA, LIPAS, ETOHS, ANION, OSMOL, EGFR1, TROPT ####[address] [place] [address] Monocytes/100 leukocytes 10.3 % Normal [facility] Comment on above: Performed By: #### C BC, BMP, HEPPA, LIPAS, ETOHS, ANION, OSMOL, EGFR1, TROPT ####[address] [place] [address] Platelet mean volume (PMV) 9.2 mcm Normal 7.4-10.4 [facility] Comment on above: Performed By: #### C BC, BMP, HEPPA, LIPAS, ETOHS, ANION, OSMOL, EGFR1, TROPT ####[facility] [place] [address] Platelets 323 thou/mm3 Normal 130-400 [facility] Comment on above: Performed By: #### C BC, BMP, HEPPA, LIPAS, ETOHS, ANION, OSMOL, EGFR1, TROPT ####[facility] [address] [place] [address] SEGS 48.2 % Normal [facility] Comment on above: Performed By: #### C BC, BMP, HEPPA, LIPAS, ETOHS, ANION, OSMOL, EGFR1, TROPT ####[address] [place] [address] SEGS ABSOLUTE COUNT 5.5 thou/mm3 Normal 1.8-7.7 [facility] Comment on above: Performed By: #### C BC, BMP, HEPPA, LIPAS, ETOHS, ANION, OSMOL, EGFR1, TROPT ####[address] [place] [address] WBC (Leukocytes) 11.4 thou/mm3 High 4.8-10.8 [facility] Comment on above: Performed By: #### C BC, BMP, HEPPA, LIPAS, ETOHS, ANION, OSMOL, EGFR1, TROPT ####[facility] [address] [place] [address] Erythrocyte morphology NORMAL Normal [facility] Comment on above: Performed By: #### C BC, BMP, HEPPA, LIPAS, ETOHS, ANION, OSMOL, EGFR1, TROPT ####[address] [place] [address] ED Noteon 02-15-2017 HIM IP Note OR 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 Normal [facility] ED Provider Noteon 7 HIM IP Note OR 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 Normal [facility] ETHYL ALCOHOL BLOODon 2016 ETHYL ALCOHOL BLOOD < 0.01 Normal 0.00 [facility] Comment on above: Performed By: #### C BC, BMP, HEPPA, LIPAS, ETOHS, ANION, OSMOL, EGFR1, TROPT ####[facility] [address] [place] [address] GFR, ESTIMATEDon 02-15-2017 eGFR (MDRD) 86 ml/min/1.73m2 Abnormal [facility] Comment on above: Result Comment: Stag e [...] LIPAS, ETOHS, ANION, OSMOL, EGFR1, TROPT ####[facility] [address] [place] [address] GI PANEL BY PCRon 02-15-2017 ADENOVIRUS F 40/41 GI BY PCR Not Detected Normal [facility] Comment on above: Performed By: #### T OXPN, GIP ####[facility] [address] [place] [address] ASTROVIRUS GI BY PCR Not Detected Normal [facility] Comment on above: Performed By: #### T OXPN, GIP ####[facility] [address] [place] [address] C DIFFICILE (TOXIN A/B) GI BY PCR Not Detected Normal [facility] Comment on above: Performed By: #### T OXPN, GIP ####[facility] [address] [place] [address] CAMPYLOBACTER GI BY PCR Not Detected Normal [facility] Comment on above: Performed By: #### T OXPN, GIP ####[facility] [address] [place] [address] Cholesterol Not Detected Normal [facility] Comment on above: Performed By: #### T OXPN, GIP ####[facility] [address] [place] [address] CRYPTOSPORIDIUM GI BY PCR Not Detected Normal [facility] Comment on above: Performed By: #### T OXPN, GIP ####[facility] [address] [facility] [place] [address] CYCLOSPORIDIUM GI BY PCR Not Detected Normal [facility] Comment on above: Performed By: #### T OXPN, GIP ####[facility] [address] [place] [address] E COLI (EAEC) GI BY PCR Not Detected Normal [facility] Comment on above: Performed By: #### T OXPN, GIP ####[facility] [address] [place] [address] E COLI (EIEC) GI BY PCR Not Detected Normal [facility] Comment on above: Performed By: #### T OXPN, GIP ####[facility] [address] [place] [address] E COLI (EPEC) GI BY PCR Not Detected Normal [facility] Comment on above: Performed By: #### T OXPN, GIP ####[facility] [address] [place] [address] E COLI (ETEC) GI BY PCR Not Detected Normal [facility] Comment on above: Performed By: #### T OXPN, GIP ####[facility] [address] [place] [address] E COLI (STEC) GI BY PCR Not Detected Normal [facility] Comment on above: Performed By: #### T OXPN, GIP ####[facility] [address] [facility] [place] [address] E COLI O157 GI BY PCR Normal [facility] Comment on above: Performed By: #### T OXPN, GIP ####[facility] [address] [facility] [place] [address] E HISTOLYTICA GI BY PCR Not Detected Normal [facility] Comment on above: Performed By: #### T OXPN, GIP ####[facility] [address]wt[address] [facility] [place] [address] GIARDIA LAMBLIA GI BY PCR Not Detected Normal [facility] Comment on above: Performed By: #### T OXPN, GIP ####[facility] [address] [facility] [place] [address] NOROVIRUS GI BY PCR Not Detected Normal [facility] Comment on above: Performed By: #### T OXPN, GIP ####[facility] [address] [facility] [place] [address] PLESIOMONAS SHIGELLOIDES GI BY PCR Not Detected Normal [facility] Comment on above: Performed By: #### T OXPN, GIP ####[facility] [address] [place] [address] ROTAVIRUS A GI BY PCR Not Detected Normal [facility] Comment on above: Performed By: #### T OXPN, GIP ####[facility] [address] [place] [address] SALMONELLA GI BY PCR Not Detected Normal [facility] Comment on above: Performed By: #### T OXPN, GIP ####[facility] [address]zy[address] [facility] [place] [address] SAPOVIRUS GI BY PCR Not Detected Normal [facility] Comment on above: Result Comment: Limi tations:Nucleic [...] 3%). Amer Acad of Ped. C. diff [id number]. Performed By: #### T OXPN, GIP ####[facility] [address]wqc[address] [facility] [place] [address] VIBRO GI BY PCR Not Detected Normal [facility] Comment on above: Performed By: #### T OXKOREY, GIP ####[facility] [address] [place] [address] YERSINIA ENTEROCOLITICA GI BY PCR Not Detected Normal [facility] Comment on above: Performed By: #### T OXPN, GIP ####[address] [place] [address] HEPATIC FUNCTION PANELon Alanine aminotransferase (ALT) 25 U/L Normal 11-66 [facility] Comment on above: Performed By: #### C BC, BMP, HEPPA, LIPAS, ETOHS, ANION, OSMOL, EGFR1, TROPT ####[facility] [place] [address] Albumin 3.5 g/dL Normal 3.5-5.1 [facility] Comment on above: Performed By: #### C BC, BMP, HEPPA, LIPAS, ETOHS, ANION, OSMOL, EGFR1, TROPT ####[address] [place] [address] Alkaline phosphatase (ALP) 85 U/L Normal 38-126 [facility] Comment on above: Performed By: #### C BC, BMP, HEPPA, LIPAS, ETOHS, ANION, OSMOL, EGFR1, TROPT ####[address] [place] [address] Aspartate aminotransferase (AST) 43 U/L High 5-40 [facility] Comment on above: Performed By: #### C BC, BMP, HEPPA, LIPAS, ETOHS, ANION, OSMOL, EGFR1, TROPT ####[facility] [address] [place] [address] Bilirubin (total) mg/dL Normal 0.0-0.3 [facility] Comment on above: Performed By: #### C BC, BMP, HEPPA, LIPAS, ETOHS, ANION, OSMOL, EGFR1, TROPT ####[address] [place] [address] Bilirubin Ql (U) 0.3 mg/dL Normal 0.3-1.2 [facility] Comment on above: Performed By: #### C BC, BMP, HEPPA, LIPAS, ETOHS, ANION, OSMOL, EGFR1, TROPT ####[facility] [address] [place] [address] Protein 7.4 g/dL Normal 6.1-8.0 [facility] Comment on above: Performed By: #### C BC, BMP, HEPPA, LIPAS, ETOHS, ANION, OSMOL, EGFR1, TROPT ####[facility] [address] [place] [address] LIPASEon 02-15-2017 Lipase 32.3 U/L Normal 5.6-51.3 [facility] Comment on above: Performed By: #### C BC, BMP, HEPPA, LIPAS, ETOHS, ANION, OSMOL, EGFR1, TROPT ####[facility] [address] [place] [address] TROPONIN-Ton 02-15-2017 Troponin T.cardiac mass conc ug/L Normal [facility] Comment on above: Result Comment: <0.0 10 [...] HEPPA, LIPAS, ETOHS, ANION, OSMOL, EGFR1, TROPT ####[facility] [employer] [facility] [address] [place] [address] CT ABDOMEN PELVIS W IV CONTR Emory [...] Byrne, DOSigned by:Jim Mercado, DO02/02/17Final result Normal [facility] DRUG ABUSE SCREENon 02-03-20 AMPHETAMINE/METHAMPH Negative Normal NEGATIVE [facility] Comment on above: Performed By: #### T OXPN ####[facility] [address]jeu[address] [place] [address] BARBITURATE Negative Normal NEGATIVE [facility] Comment on above: Performed By: #### T OXPN ####[facility] Mhsc[address]mrzo[address] [place] [address] COCAINE METABOLITE Negative Normal NEGATIVE [facility] Comment on above: Performed By: #### T OXPN ####[facility] [address] [facility] [place] [address] OXYCODONE Negative Normal NEGATIVE [facility] Comment on above: Performed By: #### T OXPN ####[facility] [address] [facility] [place] [address] Urine, benzodiazepines presence Negative Normal NEGATIVE [facility] Comment on above: Performed By: #### T OXPN ####[facility] [address] [facility] [place] [address] Urine, cannabinoids presence Negative Normal NEGATIVE [facility] Comment on above: Performed By: #### T OXPN ####[facility] [address] [place] [address] Urine, opiates presence Positive Normal NEGATIVE [facility] Comment on above: Performed By: #### T OXPN ####[facility] Ezsruipmzpqg690 [place] [address] Urine, phencyclidine presence Negative Normal NEGATIVE [facility] Comment on above: Result Comment: A N [...] use only. Performed By: #### T OXPN ####[facility] [address] [place] [address] URINE REFLEX C + Son 017 Bilirubin Ql (U) Negative Normal NEGATIVE [facility] Comment on above: Performed By: #### U R_CS ####[facility] [address] [place] [address] BLOOD Negative Normal NEGATIVE [facility] Comment on above: Performed By: #### U R_CS ####[facility] [address] [place] [address] Glucose mass conc Negative Normal NEGATIVE [facility] Comment on above: Performed By: #### U R_CS ####[facility] [address]ql[address] [place] [address] pH of blood 6.0 [pH] Normal 5.0 - 9.0 [facility] Comment on above: Performed By: #### U R_CS ####[facility] [address]knwh[address] [place] [address] Protein Negative Normal NEGATIVE [facility] Comment on above: Performed By: #### U R_CS ####[facility] [employer] [address]rec[address] [place] [address] Urine, character CLEAR Normal CLEAR-SL C [facility] Comment on above: Performed By: #### U R_CS ####[facility] [employer] [facility] [address]w468 [place] [address] Urine, color YELLOW Normal STRAW-YELL [facility] Comment on above: Performed By: #### U R_CS ####[facility] [employer] [address] [place] [address] Urine, ketones presence Negative Normal NEGATIVE [facility] Comment on above: Performed By: #### U R_CS ####[facility] [address] [place] [address] Urine, nitrite presence Negative Normal NEGATIVE [facility] Comment on above: Performed By: #### U R_CS ####[facility] [address] [place] [address] Urine, specific gravity 1.021 Normal 1.002-1.03 [facility] Comment on above: Performed By: #### U R_CS ####[facility] [address] [place] [address] Urine, urobilinogen 0.2 {Ivan'U}/dL Normal 0.0 - 1. 0 [facility] Comment on above: Performed By: #### U R_CS ####[facility] [place] [address] WBC (Leukocytes) Negative Normal NEGATIVE [facility] Comment on above: Performed By: #### U R_CS ####[facility] [address] [place] [address] XR CHEST STANDARD TWO VWon 0 02-02-2017 [...] Alexis, DOSigned by:Henry Alexis, DO02/01/17Final result Normal [facility] ANION GAPon 02-01-2017 Anion gap 15.0 mmol/L Normal 8.0-16.0 [facility] Comment on above: Result Comment: ANIO N GAP = Sodium -(Chloride + CO2) Performed By: #### C BC, BMP, HEPPA, LIPAS, MG, ANION, EGFR1, OSMOL ####[place] [address] BASIC METABOL PANELon 2016 Calcium 9.2 mg/dL Normal 8.5-10.5 [facility] Comment on above: Performed By: #### C BC, BMP, HEPPA, LIPAS, MG, ANION, EGFR1, OSMOL ####[place] [address] Chloride 99 mmol/L Normal 98-111 [facility] Comment on above: Performed By: #### C BC, BMP, HEPPA, LIPAS, MG, ANION, EGFR1, OSMOL ####[place] [address] CO2 23 mmol/L Normal 23-33 [facility] Comment on above: Performed By: #### C BC, BMP, HEPPA, LIPAS, MG, ANION, EGFR1, OSMOL ####[place] [address] Creatinine 0.8 mg/dL Normal 0.4-1.2 [facility] Comment on above: Performed By: #### C BC, BMP, HEPPA, LIPAS, MG, ANION, EGFR1, OSMOL ####[place] [address] Glucose mass conc 95 mg/dL Normal 70-108 [facility] Comment on above: Performed By: #### C BC, BMP, HEPPA, LIPAS, MG, ANION, EGFR1, OSMOL ####[place] [address] Potassium molar conc 4.3 mmol/L Normal 3.5-5.2 [facility] Comment on above: Performed By: #### C BC, BMP, HEPPA, LIPAS, MG, ANION, EGFR1, OSMOL ####[place] [address] Sodium 137 mmol/L Normal 135-145 [facility] Comment on above: Performed By: #### C BC, BMP, HEPPA, LIPAS, MG, ANION, EGFR1, OSMOL ####[place] [address] Urea nitrogen 11 mg/dL Normal 7-22 [facility] Comment on above: Performed By: #### C BC, BMP, HEPPA, LIPAS, MG, ANION, EGFR1, OSMOL ####[place] [address] CALCULATED OSMOLALITYon 01-19 Osmolality 273.0 mOsmol/kg Low 275.0-300. [facility] Comment on above: Performed By: #### C BC, BMP, HEPPA, LIPAS, MG, ANION, EGFR1, OSMOL ####[place] [address] CBC WITH DIFFERENTIALon 01-19 Anisocytosis presence 1 Normal [facility] Comment on above: Performed By: #### C BC, BMP, HEPPA, LIPAS, MG, ANION, EGFR1, OSMOL ####[place] [address] Basophils Auto #/vol (Bld) 0.0 thou/mm3 Normal 0.0-0.1 [facility] Comment on above: Performed By: #### C BC, BMP, HEPPA, LIPAS, MG, ANION, EGFR1, OSMOL ####[place] [address] Basophils/100 WBC Auto (Bld) 0.5 % Normal [facility] Comment on above: Performed By: #### C BC, BMP, HEPPA, LIPAS, MG, ANION, EGFR1, OSMOL ####[place] [address] Eosinophils 0.2 thou/mm3 Normal 0.0-0.4 [facility] Comment on above: Performed By: #### C BC, BMP, HEPPA, LIPAS, MG, ANION, EGFR1, OSMOL ####[place] [address] Eosinophils/100 leukocytes 2.0 % Normal [facility] Comment on above: Performed By: #### C BC, BMP, HEPPA, LIPAS, MG, ANION, EGFR1, OSMOL ####[place] [address] Erythrocyte distribution width Auto Ratio (RBC) 15.1 % High 11.5-14.5 [facility] Comment on above: Performed By: #### C BC, BMP, HEPPA, LIPAS, MG, ANION, EGFR1, OSMOL ####[place] [address] Erythrocytes (RBC) 5.08 mill/mm3 Normal 4.20-5.40 [facility] Comment on above: Performed By: #### C BC, BMP, HEPPA, LIPAS, MG, ANION, EGFR1, OSMOL ####[place] [address] Erythrocytes (RBC) 0 /100 wbc Normal [facility] Comment on above: Performed By: #### C BC, BMP, HEPPA, LIPAS, MG, ANION, EGFR1, OSMOL ####[place] [address] Hematocrit (HCT) 47.3 % High 37.0-47.0 [facility] Comment on above: Performed By: #### C BC, BMP, HEPPA, LIPAS, MG, ANION, EGFR1, OSMOL ####[place] [address] Hemoglobin mass conc (Bld) 16.2 gm/dl High 12.0-16.0 [facility] Comment on above: Performed By: #### C BC, BMP, HEPPA, LIPAS, MG, ANION, EGFR1, OSMOL ####[place] [address] Lymphocytes 3.4 thou/mm3 Normal 1.0-4.8 [facility] Comment on above: Performed By: #### C BC, BMP, HEPPA, LIPAS, MG, ANION, EGFR1, OSMOL ####[place] [address] Lymphocytes/100 leukocytes 35.2 % Normal [facility] Comment on above: Performed By: #### C BC, BMP, HEPPA, LIPAS, MG, ANION, EGFR1, OSMOL ####[place] [address] MCH 31.9 pg High 27.0-31.0 [facility] Comment on above: Performed By: #### C BC, BMP, HEPPA, LIPAS, MG, ANION, EGFR1, OSMOL ####[place] [address] MCHC mass conc (RBC) 34.3 gm/dl Normal 33.0-37.0 [facility] Comment on above: Performed By: #### C BC, BMP, HEPPA, LIPAS, MG, ANION, EGFR1, OSMOL ####[place] [address] MCV 93.1 fL Normal 81.0-99.0 [facility] Comment on above: Performed By: #### C BC, BMP, HEPPA, LIPAS, MG, ANION, EGFR1, OSMOL ####[place] [address] Monocytes 0.7 thou/mm3 Normal 0.4-1.3 [facility] Comment on above: Performed By: #### C BC, BMP, HEPPA, LIPAS, MG, ANION, EGFR1, OSMOL ####[place] [address] Monocytes/100 leukocytes 7.5 % Normal [facility] Comment on above: Performed By: #### C BC, BMP, HEPPA, LIPAS, MG, ANION, EGFR1, OSMOL ####[place] [address] Platelet mean volume (PMV) 8.6 mcm Normal 7.4-10.4 [facility] Comment on above: Performed By: #### C BC, BMP, HEPPA, LIPAS, MG, ANION, EGFR1, OSMOL ####[place] [address] Platelets 288 thou/mm3 Normal 130-400 [facility] Comment on above: Performed By: #### C BC, BMP, HEPPA, LIPAS, MG, ANION, EGFR1, OSMOL ####[facility] [address] [place] [address] SEGS 54.8 % Normal [facility] Comment on above: Performed By: #### C BC, BMP, HEPPA, LIPAS, MG, ANION, EGFR1, OSMOL ####[facility] [address] [place] [address] SEGS ABSOLUTE COUNT 5.3 thou/mm3 Normal 1.8-7.7 [facility] Comment on above: Performed By: #### C BC, BMP, HEPPA, LIPAS, MG, ANION, EGFR1, OSMOL ####[facility] [address] [place] [address] WBC (Leukocytes) 9.6 thou/mm3 Normal 4.8-10.8 [facility] Comment on above: Performed By: #### C BC, BMP, HEPPA, LIPAS, MG, ANION, EGFR1, OSMOL ####[facility] [address] [place] [address] Erythrocyte morphology NORMAL Normal [facility] Comment on above: Performed By: #### C BC, BMP, HEPPA, LIPAS, MG, ANION, EGFR1, OSMOL ####[facility] [address] [place] [address] ED Provider Noteon 7 HIM IP Note OR 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 Normal [facility] ETHYL ALCOHOL BLOODon 2016 ETHYL ALCOHOL BLOOD < 0.01 Normal 0.00 [facility] Comment on above: Performed By: #### E TOHS, NTBNP, TROPT, TSH3 ####[facility] [address] [place] [address] GFR, ESTIMATEDon 02-01-2017 eGFR (MDRD) 73 ml/min/1.73m2 Abnormal [facility] Comment on above: Result Comment: Bjorn hood [...] LIPAS, MG, ANION, EGFR1, OSMOL ####[address] [place] [address] HEPATIC FUNCTION PANELon Alanine aminotransferase (ALT) 55 U/L Normal 11-66 [facility] Comment on above: Performed By: #### C BC, BMP, HEPPA, LIPAS, MG, ANION, EGFR1, OSMOL ####[address] [address] Albumin 3.9 g/dL Normal 3.5-5.1 [facility] Comment on above: Performed By: #### C BC, BMP, HEPPA, LIPAS, MG, ANION, EGFR1, OSMOL ####[address] [address] Alkaline phosphatase (ALP) 125 U/L Normal 38-126 [facility] Comment on above: Performed By: #### C BC, BMP, HEPPA, LIPAS, MG, ANION, EGFR1, OSMOL ####[address] [address] Aspartate aminotransferase (AST) 44 U/L High 5-40 [facility] Comment on above: Performed By: #### C BC, BMP, HEPPA, LIPAS, MG, ANION, EGFR1, OSMOL ####[address] [address] Bilirubin (total) mg/dL Normal 0.0-0.3 [facility] Comment on above: Performed By: #### C BC, BMP, HEPPA, LIPAS, MG, ANION, EGFR1, OSMOL ####[address] [place] [address] Bilirubin Ql (U) 0.4 mg/dL Normal 0.3-1.2 [facility] Comment on above: Performed By: #### C BC, BMP, HEPPA, LIPAS, MG, ANION, EGFR1, OSMOL ####[facility] [address] [place] [address] Protein 7.9 g/dL Normal 6.1-8.0 [facility] Comment on above: Performed By: #### C BC, BMP, HEPPA, LIPAS, MG, ANION, EGFR1, OSMOL ####[facility] [place] [address] LIPASEon 02-01-2017 Lipase 19.3 U/L Normal 5.6-51.3 [facility] Comment on above: Performed By: #### C BC, BMP, HEPPA, LIPAS, MG, ANION, EGFR1, OSMOL ####[facility] [address] [place] [address] MAGNESIUMon 02-01-2017 Magnesium 2.0 mg/dL Normal 1.6-2.4 [facility] Comment on above: Performed By: #### C BC, BMP, HEPPA, LIPAS, MG, ANION, EGFR1, OSMOL ####[facility] [place] [address] NT PRO-B NATRIURETIC PEPTIDE on 02-01-2017 BNP 234.1 pg/mL Normal 0.0-900.0 [facility] Comment on above: Result Comment: Valu es < 300 pg/ml rule out, or make the probability of heart failure highly unlikely. Values which rule in heart failue are as follows: AGE RANGE <50 years >450 pg/ml 50-75 years >900 pg/ml >75 years >1800 pg/ml Performed By: #### E TOHS, NTBNP, TROPT, TSH3 ####[address] [address] TROPONIN-Ton 02-01-2017 Troponin T.cardiac mass conc ug/L Normal [facility] Comment on above: Result Comment: <0.0 10 [...] or chronic condition. Performed By: #### E TOHS, NTBNP, TROPT, TSH3 ####[employer] [address] [place] [address] TSH THIRD GENERATIONon 02-01 TSH THIRD GENERATION 0.828 uIU/mL Normal 0.400-4.20 [facility] Comment on above: Performed By: #### E TOHS, NTBNP, TROPT, TSH3 ####[facility] [address] [place] [address] Hematologyon 01-22-2017 aPTT Coag time (Bld) 35.7 s Invalid Interpretation Code 31.8-42.0 [facility] Work Phone: Prothrombin time (PT) Coag time (PPP) 13.90 s Invalid Interpretation Code 12.5-14.7 [facility] Work Phone: Otheron 01-22-2017 <0.2 Invalid Interpretation Code <1.0 [facility] Work Phone: 39.9 Invalid Interpretation Code 34.1-44.7 [facility] Work Phone: [phone] <10 Invalid Interpretation Code <14 [facility] [employer] Phone: [phone] <1.0 Invalid Interpretation Code SEE BELOW [facility] Work Phone: [phone] Invalid Interpretation Code 10-40 [facility] Work Phone: [phone] 0.19 Invalid Interpretation Code SEE BELOW [facility] Work Phone: [phone] Invalid Interpretation Code 90-180 [facility] Work Phone: [phone] 6.3 Invalid Interpretation Code 2.8-6.8 [facility] [employer] Phone: [phone] Invalid Interpretation Code 0-30 [facility] Work Phone: [phone] Negative Invalid Interpretation Code NEGATIVE AT 1:80 [facility] Work Phone: <7 Invalid Interpretation Code <15 [facility] Work Phone: 7 Invalid Interpretation Code <13 [facility] [employer] [facility] Work Phone: 11.6 Invalid Interpretation Code SEE BELOW [facility] [employer] [facility] Work Phone: NOT INDICATED Invalid Interpretation Code <1:20 [facility] [employer] [facility] Work Phone: 2.8 Invalid Interpretation Code <=20.0 [facility] [employer] [facility] Work Phone: 0 Invalid Interpretation Code [facility] Work Phone: 0=No Invalid Interpretation Code [facility] [employer] [facility] Work Phone: 3 Invalid Interpretation Code [facility] [employer] [facility] Work Phone: Risk Level 1=3 or < Invalid Interpretation Code [facility] [employer] [facility] Work Phone: 0=N/A Invalid Interpretation Code [facility] [employer] [facility] Work Phone: 1=Controlled Invalid Interpretation Code [facility] [employer] [facility] Work Phone: Needs Completed Invalid Interpretation Code [facility] [employer] [facility] Work Phone: 1=Yes Invalid Interpretation Code [employer] [facility] Work Phone: CBC WITH DIFFERENTIALon 12-19 Basophils Auto #/vol (Bld) 0.0 thou/mm3 Normal 0.0-0.1 [facility] Comment on above: Performed By: #### C BC ####[facility] [employer] [address] [place] [address] Basophils/100 WBC Auto (Bld) 0.3 % Normal [facility] Comment on above: Performed By: #### C BC ####[facility] [employer] [address] [place] [address] Eosinophils 0.3 thou/mm3 Normal 0.0-0.4 [facility] Comment on above: Performed By: #### C BC ####[facility] [employer] [address] [place] [address] Eosinophils/100 leukocytes 2.3 % Normal [facility] Comment on above: Performed By: #### C BC ####[facility] [employer] [facility] [address] [place] [address] Erythrocyte distribution width Auto Ratio (RBC) 14.3 % Normal 11.5-14.5 [facility] Comment on above: Performed By: #### C BC ####[facility] [employer] [facility] [address] [place] [address] Erythrocytes (RBC) 5.11 mill/mm3 Normal 4.20-5.40 [facility] Comment on above: Performed By: #### C BC ####[facility] [employer] [facility] [address] [place] [address] Erythrocytes (RBC) 0 /100 wbc Normal [facility] Comment on above: Performed By: #### C BC ####[facility] [employer] [facility] [address]av[address] [place] [address] Hematocrit (HCT) 46.9 % Normal 37.0-47.0 [facility] Comment on above: Performed By: #### C BC ####[facility] [employer] [facility] [address] [place] [address] Hemoglobin mass conc (Bld) 15.7 gm/dl Normal 12.0-16.0 [facility] Comment on above: Performed By: #### C BC ####[facility] [employer] [facility] [address] [place] [address] Lymphocytes 3.9 thou/mm3 Normal 1.0-4.8 [facility] Comment on above: Performed By: #### C BC ####[facility] [employer] [facility] [address] [place] [address] Lymphocytes/100 leukocytes 31.8 % Normal [facility] Comment on above: Performed By: #### C BC ####[facility] [employer] [facility] [address] [place] [address] MCH 30.7 pg Normal 27.0-31.0 [facility] Comment on above: Performed By: #### C BC ####[facility] [employer] [facility] [address] [place] [address] MCHC mass conc (RBC) 33.4 gm/dl Normal 33.0-37.0 [facility] Comment on above: Performed By: #### C BC ####[facility] [address] [facility] [place] [address] MCV 91.9 fL Normal 81.0-99.0 [facility] Comment on above: Performed By: #### C BC ####[facility] [address]fl[address]ij[address] [place] [address] Monocytes 0.9 thou/mm3 Normal 0.4-1.3 [facility] Comment on above: Performed By: #### C BC ####[facility] Qp[address]ad[address]zrh[address]500 [place] [address] Monocytes/100 leukocytes 7.1 % Normal [facility] Comment on above: Performed By: #### C BC ####[facility] [address] [facility] [place] [address] Platelet mean volume (PMV) 8.0 mcm Normal 7.4-10.4 [facility] Comment on above: Performed By: #### C BC ####[facility] [address] [facility] [place] [address] Platelets 348 thou/mm3 Normal 130-400 [facility] Comment on above: Performed By: #### C BC ####[facility] [address] [facility] [place] [address] SEGS 58.5 % Normal [facility] Comment on above: Performed By: #### C BC ####[facility] [address] [facility] [place] [address] SEGS ABSOLUTE COUNT 7.3 thou/mm3 Normal 1.8-7.7 [facility] Comment on above: Performed By: #### C BC ####[facility] [address] [facility] [place] [address] WBC (Leukocytes) 12.4 thou/mm3 High 4.8-10.8 [facility] Comment on above: Performed By: #### C BC ####[facility] [address] [facility] [place] [address] Erythrocyte morphology NORMAL Normal [facility] Comment on above: Performed By: #### C BC ####[facility] [address] [place] [address] CT CHEST W WO CONTRASTon CT CHEST [...] by:PHONG Jenkinsigned by:Jim Sun MD01/04/17Final result Normal [facility] Hematologyon 07-17-2017 Basophils/100 WBC Auto (Bld) 0.3 % Invalid Interpretation Code [facility] Work Phone: Eosinophils Auto #/vol (Bld) 2.3 10*3/uL Invalid Interpretation Code [facility] Work Phone: [phone] Eosinophils Auto #/vol (Bld) 0.3 10*3/uL Invalid Interpretation Code 0.0-0.4 [facility] Work Phone: Erythrocyte distribution width Auto Ratio (RBC) 14.3 % Invalid Interpretation Code 11.5-14.5 [facility] Work Phone: [phone] Hematocrit Auto Volume Fraction (Bld) 46.90 % Invalid Interpretation Code 37.0-47.0 [facility] Work Phone: Hemoglobin mass conc (Bld) 15.70 g/dL Invalid Interpretation Code 12.0-16.0 [facility] Work Phone: Lymphocytes Auto #/vol (Bld) 3.9 10*3/uL Invalid Interpretation Code 1.0-4.8 [facility] Work Phone: Lymphocytes Auto #/vol (Bld) 31.8 10*3/uL Invalid Interpretation Code [facility] Work Phone: MCH Auto Entitic mass (RBC) 30.7 pg Invalid Interpretation Code 27.0-31.0 [facility] Work Phone: MCHC Auto mass conc (RBC) 33.4 g/dL Invalid Interpretation Code 33.0-37.0 [facility] Work Phone: MCV Auto Entitic volume (RBC) 91.9 fL Invalid Interpretation Code 81.0-99.0 [facility] Work Phone: Monocytes Auto #/vol (Bld) 7.1 10*3/uL Invalid Interpretation Code [facility] Work Phone: [phone] Monocytes Auto #/vol (Bld) 0.9 10*3/uL Invalid Interpretation Code 0.4-1.3 [facility] Work Phone: Platelet mean volume Auto Entitic volume (Bld) 8.0 fL Invalid Interpretation Code 7.4-10.4 [facility] Work Phone: RBC Auto #/vol (Bld) 5.11 10*6/uL Invalid Interpretation Code 4.20-5.40 [facility] Work Phone: WBC Auto #/vol (Bld) 12.40 10*3/uL Invalid Interpretation Code 4.8-10.8 [facility] Work Phone: Otheron 01-04-2017 RBC shape Nom (Bld) NORMAL Invalid Interpretation Code [facility] Work Phone: WBC LM Ql (Sput) 12.40 x10E3/uL Invalid Interpretation Code 4.8-10.8 [facility] Work Phone: 0.0 Invalid Interpretation Code 0.0-0.1 [facility] Work Phone: 7.3 Invalid Interpretation Code 1.8-7.7 [facility] Work Phone: 0 Invalid Interpretation Code [facility] Work Phone: 58.5 Invalid Interpretation Code [facility] Work Phone: [phone] Invalid Interpretation Code 130-400 [facility] Work Phone: ANION GAPon 12-28-2016 Anion gap 16.0 mmol/L Normal 8.0-16.0 [facility] Comment on above: Result Comment: ANIO N GAP = Sodium -(Chloride + CO2) Performed By: #### C BC, TROPT, BMP, ANION, EGFR1, OSMOL, SCAN1 ####[facility] [employer] [address] [place] [address] BASIC METABOL PANELon 2016 Calcium 8.9 mg/dL Normal 8.5-10.5 [facility] Comment on above: Performed By: #### C BC, TROPT, BMP, ANION, EGFR1, OSMOL, SCAN1 ####[facility] [employer] [address] [place] [address] Chloride 101 mmol/L Normal 98-111 [facility] Comment on above: Performed By: #### C BC, TROPT, BMP, ANION, EGFR1, OSMOL, SCAN1 ####[facility] [place] [address] CO2 22 mmol/L Low 23-33 [facility] Comment on above: Performed By: #### C BC, TROPT, BMP, ANION, EGFR1, OSMOL, SCAN1 ####[address] [place] [address] Creatinine 0.7 mg/dL Normal 0.4-1.2 [facility] Comment on above: Performed By: #### C BC, TROPT, BMP, ANION, EGFR1, OSMOL, SCAN1 ####[place] [address] Glucose mass conc 141 mg/dL High 70-108 [facility] Comment on above: Performed By: #### C BC, TROPT, BMP, ANION, EGFR1, OSMOL, SCAN1 ####[place] [address] Potassium molar conc 4.3 mmol/L Normal 3.5-5.2 [facility] Comment on above: Performed By: #### C BC, TROPT, BMP, ANION, EGFR1, OSMOL, SCAN1 ####[address] [place] [address] Sodium 139 mmol/L Normal 135-145 [facility] Comment on above: Performed By: #### C BC, TROPT, BMP, ANION, EGFR1, OSMOL, SCAN1 ####[address] [place] [address] Urea nitrogen 12 mg/dL Normal 7-22 [facility] Comment on above: Performed By: #### C BC, TROPT, BMP, ANION, EGFR1, OSMOL, SCAN1 ####[address] [place] [id number] CALCULATED OSMOLALITYon 12-19-2016 Osmolality 279.7 mOsmol/kg Normal 275.0-300. [facility] Comment on above: Performed By: #### C BC, TROPT, BMP, ANION, EGFR1, OSMOL, SCAN1 ####[place] [address] CBC WITH DIFFERENTIALon 12-19 Platelets ADEQUATE Normal [facility] Comment on above: Performed By: #### C BC, TROPT, BMP, ANION, EGFR1, OSMOL, SCAN1 ####[place] [address] Basophils Auto #/vol (Bld) 0.1 thou/mm3 Normal 0.0-0.1 [facility] Comment on above: Performed By: #### C BC, TROPT, BMP, ANION, EGFR1, OSMOL, SCAN1 ####[place] [address] Basophils/100 WBC Auto (Bld) 0.3 % Normal [facility] Comment on above: Performed By: #### C BC, TROPT, BMP, ANION, EGFR1, OSMOL, SCAN1 ####[place] [address] Eosinophils 0.0 thou/mm3 Normal 0.0-0.4 [facility] Comment on above: Performed By: #### C BC, TROPT, BMP, ANION, EGFR1, OSMOL, SCAN1 ####[place] [address] Eosinophils/100 leukocytes 0.2 % Normal [facility] Comment on above: Performed By: #### C BC, TROPT, BMP, ANION, EGFR1, OSMOL, SCAN1 ####[place] [address] Erythrocyte distribution width Auto Ratio (RBC) 14.3 % Normal 11.5-14.5 [facility] Comment on above: Performed By: #### C BC, TROPT, BMP, ANION, EGFR1, OSMOL, SCAN1 ####[place] [address] Erythrocytes (RBC) 0 /100 wbc Normal [facility] Comment on above: Performed By: #### C BC, TROPT, BMP, ANION, EGFR1, OSMOL, SCAN1 ####[address] [place] [address] Erythrocytes (RBC) 4.86 mill/mm3 Normal 4.20-5.40 [facility] Comment on above: Performed By: #### C BC, TROPT, BMP, ANION, EGFR1, OSMOL, SCAN1 ####[place] [address] Hematocrit (HCT) 44.8 % Normal 37.0-47.0 [facility] Comment on above: Performed By: #### C BC, TROPT, BMP, ANION, EGFR1, OSMOL, SCAN1 ####[place] [address] Hemoglobin mass conc (Bld) 15.3 gm/dl Normal 12.0-16.0 [facility] Comment on above: Performed By: #### C BC, TROPT, BMP, ANION, EGFR1, OSMOL, SCAN1 ####[place] [address] Lymphocytes 2.3 thou/mm3 Normal 1.0-4.8 [facility] Comment on above: Performed By: #### C BC, TROPT, BMP, ANION, EGFR1, OSMOL, SCAN1 ####[place] [address] Lymphocytes/100 leukocytes 13.0 % Normal [facility] Comment on above: Performed By: #### C BC, TROPT, BMP, ANION, EGFR1, OSMOL, SCAN1 ####[place] [address] MCH 31.4 pg High 27.0-31.0 [facility] Comment on above: Performed By: #### C BC, TROPT, BMP, ANION, EGFR1, OSMOL, SCAN1 ####[place] [address] MCHC mass conc (RBC) 34.1 gm/dl Normal 33.0-37.0 [facility] Comment on above: Performed By: #### C BC, TROPT, BMP, ANION, EGFR1, OSMOL, SCAN1 ####[facility] [employer] [address] [place] [address] MCV 92.1 fL Normal 81.0-99.0 [facility] Comment on above: Performed By: #### C BC, TROPT, BMP, ANION, EGFR1, OSMOL, SCAN1 ####[address] [place] [address] Monocytes 1.3 thou/mm3 Normal 0.4-1.3 [facility] Comment on above: Performed By: #### C BC, TROPT, BMP, ANION, EGFR1, OSMOL, SCAN1 ####[address] [address] Monocytes/100 leukocytes 7.3 % Normal [facility] Comment on above: Performed By: #### C BC, TROPT, BMP, ANION, EGFR1, OSMOL, SCAN1 ####[place] [address] Platelet mean volume (PMV) 8.7 mcm Normal 7.4-10.4 [facility] Comment on above: Performed By: #### C BC, TROPT, BMP, ANION, EGFR1, OSMOL, SCAN1 ####[address] [address] Platelets 312 thou/mm3 Normal 130-400 [facility] Comment on above: Performed By: #### C BC, TROPT, BMP, ANION, EGFR1, OSMOL, SCAN1 ####[address] [address] SEGS 79.2 % Normal [facility] Comment on above: Performed By: #### C BC, TROPT, BMP, ANION, EGFR1, OSMOL, SCAN1 ####[address] [place] [address] SEGS ABSOLUTE COUNT 14.0 thou/mm3 High 1.8-7.7 [facility] Comment on above: Performed By: #### C BC, TROPT, BMP, ANION, EGFR1, OSMOL, SCAN1 ####[address] [place] [address] WBC (Leukocytes) 17.7 thou/mm3 High 4.8-10.8 [facility] Comment on above: Performed By: #### C BC, TROPT, BMP, ANION, EGFR1, OSMOL, SCAN1 ####[facility] [address] [place] [address] Erythrocyte morphology NORMAL Normal [facility] Comment on above: Performed By: #### C BC, TROPT, BMP, ANION, EGFR1, OSMOL, SCAN1 ####[facility] [address] [place] [address] CONSULTATIONon 12-28-2016 CONSULTATION [facility] ATIENT NAME: WILBERT JOHNSON : 56MED REC NO: [id number] ROOM:ACCOUNT NO: [id number] ADMISSION DATE: 12/28/16PHYSICIAN: JOSE ARMANDO BALLINMARCELA COMPLAINT: Left triceps abscess.HISTORY OF PRESENT ILLNESS: The patient is a 56-year-old female whopresents for evaluation for an abscess mass in her left arm. Thepatient is [facility]. Shestates that she uses [...] further I and D.Thank you very much.TATYANA MCKEON, MDD:01/11/2017 14:20:08 [id number]#: [id number] Doc#: [id number]: This report is an unsigned version. If any amendments were made to the final version prior to authentication, it is available in [employer] at [place], [place]. If you wish to review a final copy, please view the document in [employer], or, contact [phone] for a copy. There may be a final document in PDF form. Normal [facility] Consulton 12-28-2016 HIM IP Note OR 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 Normal [facility] ED Noteon 12-28-2016 HIM IP Note OR 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 Normal [facility] HIM IP Note OR 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 Normal [facility] HIM IP Note OR 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 Normal [facility] HIM IP Note OR 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 Normal [facility] HIM IP Note OR 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 Normal [facility] HIM IP Note OR 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 Normal [facility] HIM IP Note OR 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 Normal [facility] HIM IP Note OR 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 Normal [facility] GFR, ESTIMATEDon 12-28-2016 eGFR (MDRD) 86 ml/min/1.73m2 Abnormal [facility] Comment on above: Result Comment: Bjorn hood [...] BC, TROPT, BMP, ANION, EGFR1, OSMOL, SCAN1 ####[address] [place] [address] SCAN OF BLOOD SMEARon 2016 SCAN OF BLOOD SMEAR see below Normal [facility] Comment on above: Result Comment: Marce Yanez; Scan of Differential Slide Performed Performed By: #### C BC, TROPT, BMP, ANION, EGFR1, OSMOL, SCAN1 ####[address] [place] [address] TROPONIN-Ton 12-28-2016 Troponin T.cardiac mass conc ug/L Normal [facility] Comment on above: Result Comment: <0.0 10 [...] BC, TROPT, BMP, ANION, EGFR1, OSMOL, SCAN1 ####[address] [place] [address] XR CHEST STANDARD TWO VWon 0 12-28-2016 [...] by:PHONG Sanchezigned by:Lory Hoskins MD12/28/16Final result Normal [facility] Hematologyon 10-19-2016 Basophils Auto #/vol (Bld) 0.8 % Invalid Interpretation Code [facility] Work Phone: Basophils/100 WBC Auto (Bld) 0.1 K/uL Invalid Interpretation Code 0.0-0.1 [facility] Work Phone: Eosinophils/100 WBC Auto (Bld) 2.1 % Invalid Interpretation Code [facility] Work Phone: Erythrocyte distribution width Auto Ratio (RBC) 14.6 % Invalid Interpretation Code 10.8-14.8 [facility] Work Phone: Hematocrit Auto Volume Fraction (Bld) 44.90 % Invalid Interpretation Code 36.0-48.0 [facility] Work Phone: Hemoglobin S Solubility test Ql (Bld) 15.2 Invalid Interpretation Code 12.0-16.0 [facility] Work Phone: Lymphocytes/100 WBC Auto (Bld) 44.1 % Invalid Interpretation Code [facility] Work Phone: MCH Auto Entitic mass (RBC) 30.2 pg Invalid Interpretation Code 27.0-34.0 [facility] Work Phone: MCHC Auto mass conc (RBC) 33.9 g/dL Invalid Interpretation Code 31.0-36.0 [facility] Work Phone: MCV Auto Entitic volume (RBC) 89.1 fL Invalid Interpretation Code 80.-100. [facility] Work Phone: Monocytes/100 WBC Auto (Bld) 9.8 % Invalid Interpretation Code [facility] Work Phone: Neutrophils/100 WBC Auto (Bld) 42.9 % Invalid Interpretation Code [facility] Work Phone: Nucleated RBC/100 WBC Ratio (Bld) 0.2 10*3/uL Invalid Interpretation Code 0.1-0.4 [facility] Work Phone: Nucleated RBC/100 WBC Ratio (Bld) 4.4 10*3/uL Invalid Interpretation Code 0.8-5.2 [facility] Work Phone: Nucleated RBC/100 WBC Ratio (Bld) 1.0 10*3/uL Invalid Interpretation Code 0.1-0.9 [facility] Work Phone: Nucleated RBC/100 WBC Ratio (Bld) 4.2 10*3/uL Invalid Interpretation Code 1.3-9.1 [facility] Work Phone: RBC Auto #/vol (Bld) 5.040 10*6/uL Invalid Interpretation Code 4.00-5.50 [facility] Work Phone: Metabolic Panelon 10-19-2016 Albumin mass conc 4.20 g/dL Invalid Interpretation Code 3.2-5.3 [facility] Work Phone: ALP enzyme act/vol 89.0 U/L Invalid Interpretation Code 35-121 [facility] Work Phone: ALT enzyme act/vol 50.0 U/L Invalid Interpretation Code 5-59 [facility] Work Phone: Anion gap 3 molar conc 15 mmol/L Invalid Interpretation Code [facility] Work Phone: AST enzyme act/vol 43.0 U/L Invalid Interpretation Code 10-42 [facility] Work Phone: Calcium mass conc 9.70 mg/dL Invalid Interpretation Code 8.7-10.8 [facility] Work Phone: Chloride molar conc 103 mmol/L Invalid Interpretation Code 95-111 [facility] Work Phone: CO2 molar conc 27 mmol/L Invalid Interpretation Code 21-32 [facility] Work Phone: Creatinine mass conc 1.0 mg/dL Invalid Interpretation Code 0.5-1.3 [facility] Work Phone: Glucose mass conc 102 mg/dL Invalid Interpretation Code 70-100 [facility] Work Phone: Potassium molar conc 4.40 mmol/L Invalid Interpretation Code 3.5-5.4 [facility] Work Phone: Protein mass conc 7.3 g/dL Invalid Interpretation Code 5.8-8.0 [facility] Work Phone: Sodium molar conc 141 mmol/L Invalid Interpretation Code 134-147 [facility] Work Phone: Urea nitrogen mass conc 22.0 mg/dL Invalid Interpretation Code 10-20 [facility] Work Phone: Glucose mass conc 115.0 mg/dL Invalid Interpretation Code [facility] Work Phone: Otheron 10-19-2016 Bilirubin Ql (U) 0.4 Invalid Interpretation Code 0.2-1.3 [facility] Work Phone: WBC LM Ql (Sput) 9.9 Invalid Interpretation Code 3.7-10.8 [facility] Work Phone: [phone] Invalid Interpretation Code >60 [facility] Work Phone: 57 Invalid Interpretation Code >60 [facility] Work Phone: [phone] Invalid Interpretation Code 150.-450. [facility] Work Phone: Thyroidon 10-19-2016 Thyrotropin Qn 1.590 uIU/mL Invalid Interpretation Code 0.40-4.40 [facility] Work Phone: Otheron 10-01-2016 Urinalysis specialist review Interp Yeison (Unsp spec) all normal results except Moderate for Leucocytes Invalid Interpretation Code [facility] Work Phone: Never smoked Invalid Interpretation Code [facility] Work Phone: GB Invalid Interpretation Code [facility] Work Phone: Never Invalid Interpretation Code [facility] Work Phone: Otheron 09-09-2016 Calcidiol mass conc 27.0 ng/mL Invalid Interpretation Code SEE BELOW [facility] [employer] Phone: Cobalamin (Vitamin B12) mass conc 651.0 pg/mL Invalid Interpretation Code 211-911 [facility] Work Phone: Thiamine molar conc (Bld) 74.0 nmol/L Invalid Interpretation Code 70-180 [facility] Work Phone: SPECIMEN FOR CBC IS INSUFFICIENT FOR TESTING, CLIE Invalid Interpretation Code [facility] Work Phone: [phone] Invalid Interpretation Code 20-125 [facility] Work Phone: Urinalysis specialist review Interp Yeison (Unsp spec) ++Leukocytes +Blood Invalid Interpretation Code [facility] Work Phone: Hematologyon 10-02-2015 Basophils Auto #/vol (Bld) 0.7 % Invalid Interpretation Code 0.-1. [facility] Work Phone: Basophils/100 WBC Auto (Bld) 0.1 K/uL Invalid Interpretation Code 0.0-0.1 [facility] Work Phone: Eosinophils/100 WBC Auto (Bld) 1.8 % Invalid Interpretation Code 1.-4. [facility] Work Phone: Erythrocyte distribution width Auto Ratio (RBC) 14.4 % Invalid Interpretation Code 10.8-14.8 [facility] Work Phone: Hematocrit Auto Volume Fraction (Bld) 46.50 % Invalid Interpretation Code 36.0-48.0 [facility] Work Phone: Hemoglobin S Solubility test Ql (Bld) 15.1 Invalid Interpretation Code 12.0-16.0 [facility] Work Phone: [phone] Lymphocytes/100 WBC Auto (Bld) 28.4 % Invalid Interpretation Code 16-48 [facility] Work Phone: [phone] MCH Auto Entitic mass (RBC) 31.4 pg Invalid Interpretation Code 27.0-34.0 [facility] Work Phone: [phone] MCHC Auto mass conc (RBC) 32.5 g/dL Invalid Interpretation Code 31.0-36.0 [facility] Work Phone: [phone] MCV Auto Entitic volume (RBC) 96.6 fL Invalid Interpretation Code 80.-100. [facility] Work Phone: [phone] Monocytes/100 WBC Auto (Bld) 5.2 % Invalid Interpretation Code 1.-8. [facility] Work Phone: [phone] Neutrophils/100 WBC Auto (Bld) 64.0 % Invalid Interpretation Code 45-75 [facility] Work Phone: Nucleated RBC/100 WBC Ratio (Bld) 0.2 10*3/uL Invalid Interpretation Code 0.1-0.4 [facility] [employer] Phone: Nucleated RBC/100 WBC Ratio (Bld) 2.6 10*3/uL Invalid Interpretation Code 0.8-5.2 [facility] Work Phone: Nucleated RBC/100 WBC Ratio (Bld) 0.5 10*3/uL Invalid Interpretation Code 0.1-0.9 [facility] Work Phone: Nucleated RBC/100 WBC Ratio (Bld) 5.9 10*3/uL Invalid Interpretation Code 1.3-9.1 [facility] Work Phone: [phone] RBC Auto #/vol (Bld) 4.810 10*6/uL Invalid Interpretation Code 4.00-5.50 [facility] Work Phone: Metabolic Panelon 10-02-2015 Albumin mass conc 4.0 g/dL Invalid Interpretation Code 3.2-5.3 [facility] Work Phone: ALP enzyme act/vol 82.0 U/L Invalid Interpretation Code 35-121 [facility] Work Phone: ALT enzyme act/vol 39.0 U/L Invalid Interpretation Code 5-59 [facility] Work Phone: Anion gap 3 molar conc 11 mmol/L Invalid Interpretation Code [facility] Work Phone: AST enzyme act/vol 27.0 U/L Invalid Interpretation Code 10-42 [facility] Work Phone: Calcium mass conc 9.40 mg/dL Invalid Interpretation Code 8.7-10.8 [facility] Work Phone: Chloride molar conc 101 mmol/L Invalid Interpretation Code 95-111 [facility] Work Phone: CO2 molar conc 26 mmol/L Invalid Interpretation Code 21-32 [facility] Work Phone: Creatinine mass conc 0.80 mg/dL Invalid Interpretation Code 0.5-1.3 [facility] Work Phone: Glucose mass conc 92 mg/dL Invalid Interpretation Code 70-100 [facility] Work Phone: Potassium molar conc 4.10 mmol/L Invalid Interpretation Code 3.5-5.4 [facility] Work Phone: Protein mass conc 7.2 g/dL Invalid Interpretation Code 5.8-8.0 [facility] Work Phone: Sodium molar conc 134 mmol/L Invalid Interpretation Code 134-147 [facility] Work Phone: Urea nitrogen mass conc 21.0 mg/dL Invalid Interpretation Code 10-20 [facility] Work Phone: Otheron 10-02-2015 Bilirubin Ql (U) 0.4 Invalid Interpretation Code 0.2-1.3 [facility] Work Phone: Calcidiol mass conc 30.0 ng/mL Invalid Interpretation Code SEE BELOW [facility] Work Phone: WBC LM Ql (Sput) 9.2 Invalid Interpretation Code 3.7-10.8 [facility] Work Phone: [phone] Invalid Interpretation Code >60 [facility] Work Phone: [phone] Invalid Interpretation Code >60 [facility] Work Phone: [phone] Invalid Interpretation Code 150.-450. [facility] Work Phone: Hematologyon 11-06-2014 RBC Auto #/vol (Bld) 0 per HPF Invalid Interpretation Code 0-5 [facility] Work Phone: Otheron 11-06-2014 Amphetamines Screen Ql (Bld) Negative Invalid Interpretation Code [facility] Work Phone: Barbiturates Screen mass conc Negative Invalid Interpretation Code [facility] Work Phone: Bilirubin Ql (U) Negative Invalid Interpretation Code NEGATIVE [facility] Work Phone: [phone] Urobilinogen Test strip mass conc (U) NORMAL Invalid Interpretation Code NORMAL [facility] Work Phone: WBC LM Ql (Sput) 30-50 Invalid Interpretation Code 0-5 [facility] Work Phone: MANY Invalid Interpretation Code [facility] Work Phone: 2+ Invalid Interpretation Code NEGATIVE [facility] Work Phone: 20-30 Invalid Interpretation Code <10 [facility] Work Phone: YES Invalid Interpretation Code [facility] Work Phone: Negative Invalid Interpretation Code [facility] [employer] [facility] Work Phone: TRACE Invalid Interpretation Code NEGATIVE, TRACE [facility] Work Phone: 5.0 Invalid Interpretation Code 5.0-9.0 [facility] [employer] [facility] Work Phone: [phone] Invalid Interpretation Code 1.001-1.03 0 [facility] Work Phone: CLOUDY Invalid Interpretation Code [facility] Work Phone: YELLOW Invalid Interpretation Code [facility] Work Phone: [phone] Invalid Interpretation Code <100 [facility] Work Phone: [phone] Invalid Interpretation Code <100 [facility] Work Phone: Positive Invalid Interpretation Code [facility] Work Phone: SPECIMEN NUMBER: [phone] Invali d Interpretation Code [facility] Work Phone: Urinalysis specialist review Interp Yeison (Unsp spec) SEE NOTES Invalid Interpretation Code [facility] [employer] Phone: Urinalysison 11-06-2014 Hemoglobin Test strip Ql (U) TRACE Invalid Interpretation Code NEGATIVE [facility] [employer] Phone: Otheron 10-30-2014 Amphetamines Screen Ql (Bld) Negative Invalid Interpretation Code [facility] [employer] [facility] Work Phone: Barbiturates Screen mass conc Negative Invalid Interpretation Code [facility] Work Phone: Positive Invalid Interpretation Code [facility] [employer] [facility] [employer] Phone: Negative Invalid Interpretation Code [facility] Work Phone: pt needs Invalid Interpretation Code [facility] [employer] Phone: Cardiacon 10-19-2014 Cholesterol in HDL mass conc 54.0 mg/dL Invalid Interpretation Code 40-60 [facility] Work Phone: Triglyceride mass conc 216.0 mg/dL Invalid Interpretation Code <150 [facility] Work Phone: Hematologyon 10-19-2014 Basophils Auto #/vol (Bld) 1.0 % Invalid Interpretation Code 0.-1. [facility] [employer] Phone: Basophils/100 WBC Auto (Bld) 0.1 th/mm3 Invalid Interpretation Code 0.0-0.1 [facility] Work Phone: [phone] Eosinophils/100 WBC Auto (Bld) 0.3 th/mm3 Invalid Interpretation Code 0.1-0.4 [facility] Work Phone: Eosinophils/100 WBC Auto (Bld) 2.9 % Invalid Interpretation Code 1.-4. [facility] Work Phone: [phone] Erythrocyte distribution width Auto Ratio (RBC) 14.6 % Invalid Interpretation Code 10.8-14.8 [facility] Work Phone: Hematocrit Auto Volume Fraction (Bld) 46.90 % Invalid Interpretation Code 36.0-48.0 [facility] Work Phone: [phone] Hemoglobin S Solubility test Ql (Bld) 15.0 Invalid Interpretation Code 12.0-16.0 [facility] [employer] [facility]: [phone] Lymphocytes/100 WBC Auto (Bld) 36.8 % Invalid Interpretation Code 16-48 [facility] Work Phone: Lymphocytes/100 WBC Auto (Bld) 3.7 th/mm3 Invalid Interpretation Code 0.8-5.2 [facility] [employer] [facility]: [phone] MCH Auto Entitic mass (RBC) 29.8 pg Invalid Interpretation Code 27.0-34.0 [facility] [employer] [facility]: [phone] MCHC Auto mass conc (RBC) 32.0 g/dL Invalid Interpretation Code 31.0-36.0 [facility] Work Phone: [phone] MCV Auto Entitic volume (RBC) 93.2 fL Invalid Interpretation Code 80.-100. [facility] Work Phone: Monocytes/100 WBC Auto (Bld) 5.4 % Invalid Interpretation Code 1.-8. [facility] Work Phone: [phone] Monocytes/100 WBC Auto (Bld) 0.5 th/mm3 Invalid Interpretation Code 0.1-0.9 [facility] Work Phone: [phone] Neutrophils/100 WBC Auto (Bld) 53.9 % Invalid Interpretation Code 45-75 [facility] Work Phone: Neutrophils/100 WBC Auto (Bld) 5.4 th/mm3 Invalid Interpretation Code 1.3-9.1 [facility] Work Phone: RBC Auto #/vol (Bld) 5.04 10*6/uL Invalid Interpretation Code 4.00-5.50 [facility] Work Phone: Metabolic Panelon 10-19-2014 Albumin mass conc 4.40 g/dL Invalid Interpretation Code 3.2-5.3 [facility] Work Phone: ALP enzyme act/vol 77.0 U/L Invalid Interpretation Code 35-121 [facility] Work Phone: ALT enzyme act/vol 23.0 U/L Invalid Interpretation Code 5-59 [facility] Work Phone: Anion gap 3 molar conc 12 mmol/L Invalid Interpretation Code [facility] Work Phone: AST enzyme act/vol 21.0 U/L Invalid Interpretation Code 10-42 [facility] Work Phone: Calcium mass conc 9.40 mg/dL Invalid Interpretation Code 8.7-10.8 [facility] Work Phone: Chloride molar conc 105 mmol/L Invalid Interpretation Code 95-111 [facility] Work Phone: CO2 molar conc 26 mmol/L Invalid Interpretation Code 21-32 [facility] Work Phone: Creatinine mass conc 0.80 mg/dL Invalid Interpretation Code 0.5-1.3 [facility] Work Phone: Glucose mass conc 96 mg/dL Invalid Interpretation Code 70-100 [facility] Work Phone: Potassium molar conc 4.10 mmol/L Invalid Interpretation Code 3.5-5.4 [facility] Work Phone: Protein mass conc 7.0 g/dL Invalid Interpretation Code 5.8-8.0 [facility] Work Phone: Sodium molar conc 139 mmol/L Invalid Interpretation Code 134-147 [facility] Work Phone: Urea nitrogen mass conc 16.0 mg/dL Invalid Interpretation Code 10-20 [employer] [facility] Work Phone: Otheron 10-19-2014 Bilirubin Ql (U) 0.4 Invalid Interpretation Code 0.2-1.3 [facility] [employer] [facility] Work Phone: Calcidiol mass conc 13.0 ng/mL Invalid Interpretation Code SEE BELOW [facility] [employer] [facility] Work Phone: Cholesterol crystals Infrared spectroscopy Ql (Stone) 313 mg/dL Invalid Interpretation Code <200 [facility] [employer] [facility] Work Phone: [phone] Cholesterol.total/Naya sterol in HDL mass ratio 5.8 {ratio} Invalid Interpretation Code <5 [facility] [employer] [facility] [employer] Phone: Cobalamin (Vitamin B12) mass conc 769.0 pg/mL Invalid Interpretation Code 211-911 [facility] [employer] [facility] Work Phone: Lipoprotein.beta/Lipopr otein.alpha mass ratio 4.0 Invalid Interpretation Code <3.5 [facility] [employer] [facility] Work Phone: Lipoprotein.pre-beta mass conc 43.0 mg/dL Invalid Interpretation Code <30 [facility] [employer] [facility] Work Phone: Lipoprotein.pre-beta mass conc 216.0 mg/dL Invalid Interpretation Code <130 [facility] [employer] [facility] Work Phone: WBC LM Ql (Sput) 9.9 Invalid Interpretation Code 3.7-10.8 [facility] [employer] [facility] Work Phone: 5 Invalid Interpretation Code 0-30 [facility] [employer] [facility] Work Phone: [phone] Invalid Interpretation Code 150.-450. [employer] [facility] Work Phone: [phone] Invalid Interpretation Code >60 [facility] [employer] [facility] Work Phone: [phone] Invalid Interpretation Code >60 [facility] [employer] [facility] Work Phone: Negative Invalid Interpretation Code NEGATIVE AT 1:80 [facility] [employer] [facility] Work Phone: Thyroidon 10-19-2014 T4 free mass conc 7100.0 ng/dL Invalid Interpretation Code 4.5-12.5 [facility] Work Phone: Thyrotropin Qn 0.6560 uIU/mL Invalid Interpretation Code 0.40-4.40 [facility] Work Phone: Bacteria identified Aer cx N om (Genital specimen) Genital Culture Streptococcus anginosus Abnormal [facility] Work Phone: Bacterial urine culture Bacteria identified Cx Nom (U) Mixed myrna, 5 species present Abnormal [facility] Work Phone: Bacteria identified Cx Nom (U) Mixed myrna- 3 species present Abnormal [facility] Work Phone: Vital Signs Date Time Vital Sign Value Performing Clinician Abbey prieto 12-15-2024 23:24-0400 Body temperature 98.7 [degF] Dr. Mayra Cortez MD Work Phone: [facility] 12-15-2024 23:24-0400 Diastolic blood pressure 88 mm[Hg] Dr. Mayra Cortez MD Work Phone: [facility] 12-15-2024 23:24-0400 Heart rate 76 /min Dr. Mayra Cortez MD Work Phone: [facility] 12-15-2024 23:24-0400 Respiratory rate 16 /min Dr. Mayra Cortez MD Work Phone: [facility] 12-15-2024 23:24-0400 SaO2% (BldA) [Mass fraction] 98 % Dr. Mayra Cortez MD Work Phone: [facility] 12-15-2024 23:24-0400 Systolic blood pressure 148 mm[Hg] Dr. Mayra Cortez MD Work Phone: [facility] 12-15-2024 22:05-0400 Body mass index (BMI) [Ratio] 34.2 kg/m2 Dr. Mayra Cortez MD Work Phone: [facility] 12-15-2024 22:05-0400 Body weight 90.[address] Mayra Cortez MD Work Phone: [facility] 12-15-2024 20:49-0400 Body height 162.[address] Mayra Cortez MD Work Phone: [facility] 07-28-2023 09:48-0500 Diastolic blood pressure 87 mm[Hg] [facility] 07-28-2023 09:48-0500 Heart rate 117 /min [facility] 07-28-2023 09:48-0500 Respiratory rate 20 /min [facility] 07-28-2023 09:48-0500 SaO2% (BldA) [Mass fraction] 95 % [facility] 07-28-2023 09:48-0500 Systolic blood pressure 145 mm[Hg] [facility] 07-28-2023 06:30-0500 Body temperature 98.2 [degF] [facility] 07-28-2023 06:27-0500 Body height 162.56 cm [facility] 07-28-2023 06:27-0500 Body mass index (BMI) [Ratio] 37.3 kg/m2 [facility] 07-28-2023 06:27-0500 Body weight 98.6 kg [facility] 10-14-2022 20:11-0400 Diastolic blood pressure 79 mm[Hg] Physician None Work Phone: [facility] Work Phone: 10-14-2022 20:11-0400 Heart rate 78 /min Physician None Work Phone: [facility] Work Phone: 10-14-2022 20:11-0400 Respiratory rate 16 /min Physician None Work Phone: [facility] Work Phone: 10-14-2022 20:11-0400 SaO2% (BldA) [Mass fraction] 90 % Physician None Work Phone: [facility] Work Phone: 10-14-2022 20:11-0400 Systolic blood pressure 117 mm[Hg] Physician None Work Phone: [facility] Work Phone: 10-14-2022 14:42-0400 Body temperature 97.9 [degF] Physician None Work Phone: [facility] Work Phone: 10-14-2022 14:41-0400 Body height 162.56 cm Physician None Work Phone: [facility] Work Phone: 10-14-2022 14:41-0400 Body mass index (BMI) [Ratio] 37.6 kg/m2 Physician None Work Phone: [facility] Work Phone: 10-14-2022 14:41-0400 Body weight 99.4 kg Physician None Work Phone: [facility] Work Phone: 03-04-2021 11:00-0400 Body height 162.56 cm Shazia Bhatti CNP Work Phone: [facility] Work Phone: 03-04-2021 11:00-0400 Body mass index (BMI) [Ratio] 38.3 kg/m2 Shazia Bhatti CNP Work Phone: [facility] Work Phone: 03-04-2021 11:00-0400 Body surface area Derived from formula 2.05 m2 Shazia Bhatti CNP Work Phone: [facility] Work Phone: 03-04-2021 11:00-0400 Body temperature 98 [degF] Shazia Bhatti CNP Work Phone: [facility] Work Phone: 03-04-2021 11:00-0400 Body weight 101.32 kg Shazia Bhatti CNP Work Phone: [facility] Work Phone: 03-04-2021 11:00-0400 Diastolic blood pressure 76 mm[Hg] Shazia Bhatti CNP Work Phone: [facility] Work Phone: 03-04-2021 11:00-0400 Heart rate 89 /min Shazia Bhatti CNP Work Phone: [facility] Work Phone: 03-04-2021 11:00-0400 Respiratory rate 20 /min Shazia Bhatti CNP Work Phone: [facility] Work Phone: 03-04-2021 11:00-0400 SaO2% (BldA) [Mass fraction] 95 % Shazia Bhatti CNP Work Phone: [facility] Work Phone: 03-04-2021 11:00-0400 Systolic blood pressure 104 mm[Hg] Shazia Bhatti CNP Work Phone: [facility] Work Phone: 01-24-2021 10:05-0400 Body height 162.56 cm Shazia Bhatti CNP Work Phone: [facility] Work Phone: 01-24-2021 10:05-0400 Body mass index (BMI) [Ratio] 37.9 kg/m2 Shazia Bhatti CNP Work Phone: [facility] Work Phone: 01-24-2021 10:05-0400 Body surface area Derived from formula 2.04 m2 Shazia Bhatti CNP Work Phone: [facility] Work Phone: 01-24-2021 10:05-0400 Body temperature 99.4 [degF] Shazia Bhatti CNP Work Phone: [facility] Work Phone: 01-24-2021 10:05-0400 Body weight 100.25 kg Shazia Bhatti CNP Work Phone: [facility] Work Phone: 01-24-2021 10:05-0400 Diastolic blood pressure 82 mm[Hg] Shazia Bhatti CNP Work Phone: [facility] Work Phone: 01-24-2021 10:05-0400 Heart rate 95 /min Shazia Bhatti CNP Work Phone: [facility] Work Phone: 01-24-2021 10:05-0400 Inhaled oxygen concentration 21 % Shazia Bhatti CNP Work Phone: [facility] Work Phone: 01-24-2021 10:05-0400 Inhaled oxygen flow rate 0 L/min Shazia Bhatti CNP Work Phone: [facility] Work Phone: 01-24-2021 10:05-0400 Respiratory rate 18 /min Shazia Bhatti CNP Work Phone: [facility] Work Phone: 01-24-2021 10:05-0400 SaO2% (BldA) [Mass fraction] 93 % Shazia Bhatti CNP Work Phone: [facility] Work Phone: 01-24-2021 10:05-0400 Systolic blood pressure 130 mm[Hg] Shazia Bhatti CNP Work Phone: [facility] Work Phone: 11-26-2020 14:13-0400 Body height 162.56 cm Shazia Bhatti CNP Work Phone: [facility] Work Phone: 11-26-2020 14:13-0400 Body mass index (BMI) [Ratio] 37.9 kg/m2 Shazia Bhatti CNP Work Phone: [facility] Work Phone: 11-26-2020 14:13-0400 Body surface area Derived from formula 2.04 m2 Shazia Bhatti CNP Work Phone: [facility] Work Phone: 11-26-2020 14:13-0400 Body temperature 97.3 [degF] Shazia Bhatti CNP Work Phone: [facility] Work Phone: 11-26-2020 14:13-0400 Body weight 100.15 kg Shazia Bhatti CNP Work Phone: [facility] Work Phone: 11-26-2020 14:13-0400 Diastolic blood pressure 78 mm[Hg] Shazia Bhatti CNP Work Phone: [facility] Work Phone: 11-26-2020 14:13-0400 Heart rate 115 /min Shazia Bhatti CNP Work Phone: [facility] Work Phone: 11-26-2020 14:13-0400 Respiratory rate 18 /min Shazia Bhatti CNP Work Phone: [facility] Work Phone: 11-26-2020 14:13-0400 SaO2% (BldA) [Mass fraction] 92 % Shazia Bhatti CNP Work Phone: [facility] Work Phone: 11-26-2020 14:13-0400 Systolic blood pressure 100 mm[Hg] Shazia Bhatti CNP Work Phone: [facility] Work Phone: 09-19-2020 18:59-0400 BMI (Body Mass Index) 37.8 kg/m2 [facility] Work Phone: 09-19-2020 18:59-0400 Body weight 99.79 kg [facility] Work Phone: 09-19-2020 18:59-0400 BP Diastolic 78 mm[Hg] [facility] Work Phone: 09-19-2020 18:59-0400 BP Systolic 114 mm[Hg] [facility] Work Phone: 09-19-2020 18:59-0400 BSA (Body Surface Area) 2.04 m2 [facility] Work Phone: 09-19-2020 18:59-0400 Flow Rate 0 L/min [facility] Work Phone: 09-19-2020 18:59-0400 Height 162.56 cm [facility] Work Phone: 09-19-2020 18:59-0400 Inhaled Oxygen Concentration 21 % [facility] Work Phone: 09-19-2020 18:59-0400 Pulse (Heart Rate) 102 /min [facility] Work Phone: 09-19-2020 18:59-0400 Pulse Oximetry 96 % [facility] Work Phone: 09-19-2020 18:59-0400 Respiratory Rate 20 /min [facility] Work Phone: 09-19-2020 18:59-0400 SaO2% (BldA) [Mass fraction] 96 % [facility] Work Phone: [facility] Work Phone: 01-23-2020 15:18-0400 BMI (Body Mass Index) 39.5 kg/m2 [facility] Work Phone: 01-23-2020 15:18-0400 Body Temperature 97.6 [degF] [facility] Work Phone: 01-23-2020 15:18-0400 Body weight 104.33 kg [facility] Work Phone: 01-23-2020 15:18-0400 BP Diastolic 75 mm[Hg] [facility] Work Phone: 01-23-2020 15:18-0400 BP Systolic 119 mm[Hg] [facility] Work Phone: 01-23-2020 15:18-0400 BSA (Body Surface Area) 2.08 m2 [facility] Work Phone: 01-23-2020 15:18-0400 Height 162.56 cm [facility] Work Phone: 01-23-2020 15:18-0400 Pulse (Heart Rate) 87 /min [facility] Work Phone: 01-23-2020 15:18-0400 Pulse Oximetry 93 % [facility] Work Phone: 01-23-2020 15:18-0400 Respiratory Rate 20 /min [facility] Work Phone: 01-23-2020 15:18-0400 SaO2% (BldA) [Mass fraction] 93 % Ro Austin CNP Work Phone: [facility] Work Phone: 11-27-2019 14:08-0400 BMI (Body Mass Index) 39.1 kg/m2 [facility] Work Phone: Comment on above: self reported 11-27-2019 14:08-0400 Body weight 103.42 kg [facility] Work Phone: Comment on above: self reported 11-27-2019 14:08-0400 BSA (Body Surface Area) 2.07 m2 [facility] Work Phone: Comment on above: self reported 11-27-2019 14:08-0400 Height 162.56 cm [facility] Work Phone: Comment on above: self reported 08-18-2019 14:44-0500 BMI (Body Mass Index) 38.3 kg/m2 [facility] Work Phone: 08-18-2019 14:44-0500 Body Temperature 98.4 [degF] [facility] Work Phone: 08-18-2019 14:44-0500 Body weight 101.15 kg [facility] Work Phone: 08-18-2019 14:44-0500 BP Diastolic 70 mm[Hg] [facility] Work Phone: 08-18-2019 14:44-0500 BP Systolic 122 mm[Hg] [facility] Work Phone: 08-18-2019 14:44-0500 BSA (Body Surface Area) 2.05 m2 [facility] Work Phone: 08-18-2019 14:44-0500 Height 162.56 cm [facility] Work Phone: 08-18-2019 14:44-0500 Pulse (Heart Rate) 129 /min [facility] Work Phone: 08-18-2019 14:44-0500 Pulse Oximetry 90 % [facility] Work Phone: 08-18-2019 14:44-0500 Respiratory Rate 18 /min [facility] Work Phone: 07-13-2019 14:31-0500 BMI (Body Mass Index) 38.1 kg/m2 [facility] Work Phone: 07-13-2019 14:31-0500 Body Temperature 97.7 [degF] [facility] Work Phone: 07-13-2019 14:31-0500 Body weight 100.7 kg [facility] Work Phone: 07-13-2019 14:31-0500 BP Diastolic 84 mm[Hg] [facility] Work Phone: 07-13-2019 14:31-0500 BP Systolic 120 mm[Hg] [facility] Work Phone: 07-13-2019 14:31-0500 BSA (Body Surface Area) 2.04 m2 [facility] Work Phone: 07-13-2019 14:31-0500 Flow Rate 0 L/min [facility] Work Phone: 07-13-2019 14:31-0500 Heart Rate Rhythm [address] [facility] Work Phone: 07-13-2019 14:31-0500 Height 162.56 cm [facility] Work Phone: 07-13-2019 14:31-0500 Inhaled Oxygen Concentration 21 % [facility] Work Phone: 07-13-2019 14:31-0500 Pulse (Heart Rate) 106 /min [facility] Work Phone: 07-13-2019 14:31-0500 Pulse Oximetry 95 % [facility] Work Phone: 07-13-2019 14:31-0500 Respiratory Rate 24 /min [facility] Work Phone: 01-06-2019 14:34-0400 BMI (Body Mass Index) 39.7 kg/m2 [facility] Work Phone: 01-06-2019 14:34-0400 Body Temperature 98.3 [degF] [facility] Work Phone: 01-06-2019 14:34-0400 Body weight 104.78 kg [facility] Work Phone: 01-06-2019 14:34-0400 BP Diastolic 80 mm[Hg] [facility] Work Phone: 01-06-2019 14:34-0400 BP Systolic 124 mm[Hg] [facility] Work Phone: 01-06-2019 14:34-0400 BSA (Body Surface Area) 2.08 m2 [facility] Work Phone: 01-06-2019 14:34-0400 Height 162.56 cm [facility] Work Phone: 01-06-2019 14:34-0400 Pulse (Heart Rate) 82 /min [facility] Work Phone: 01-06-2019 14:34-0400 Respiratory Rate 16 /min [facility] Work Phone: 12-21-2018 10:00-0400 BP Diastolic 73 mm[Hg] [facility] Work Phone: 12-21-2018 10:00-0400 BP Systolic 123 mm[Hg] [facility] Work Phone: 12-21-2018 10:00-0400 Height 162.56 cm [facility] Work Phone: 12-21-2018 10:00-0400 Pulse (Heart Rate) 78 /min [facility] Work Phone: 11-24-2018 14:40-0400 BP Diastolic 80 mm[Hg] [facility] Work Phone: 11-24-2018 14:40-0400 BP Systolic 128 mm[Hg] [facility] Work Phone: 11-24-2018 14:40-0400 Height 162.56 cm [facility] Work Phone: 11-24-2018 14:40-0400 Pulse (Heart Rate) 76 /min [facility] Work Phone: 10-06-2018 12:12-0400 BMI (Body Mass Index) 40.3 kg/m2 [facility] Work Phone: 10-06-2018 12:12-0400 Body Temperature 98 [degF] [facility] Work Phone: 10-06-2018 12:12-0400 Body weight 106.6 kg [facility] Work Phone: 10-06-2018 12:12-0400 BP Diastolic 80 mm[Hg] [facility] Work Phone: 10-06-2018 12:12-0400 BP Systolic 110 mm[Hg] [facility] Work [facility]: 10-06-2018 12:12-0400 BSA (Body Surface Area) 2.09 m2 [facility] Work Phone: 10-06-2018 12:12-0400 Height 162.56 cm [facility] Work Phone: 10-06-2018 12:12-0400 Pulse (Heart Rate) 83 /min [facility] Work [facility]: 10-06-2018 12:12-0400 Pulse Oximetry 96 % [facility] Work Phone: 10-06-2018 12:12-0400 Respiratory Rate 19 /min [facility] Work Phone: 10-06-2018 12:12-0400 Weight 106.6 kg [facility] Work Phone: 08-11-2018 15:53-0500 Body height 162.56 cm Cindy Lopes CNP Work Phone: [facility] Work Phone: 08-11-2018 15:53-0500 Body mass index (BMI) [Ratio] 40.3 kg/m2 Cindy Lopes CNP Work Phone: [facility] Work Phone: 08-11-2018 15:53-0500 Body surface area Derived from formula 2.09 m2 Cindy Lopes CNP Work Phone: [facility] Work Phone: 08-11-2018 15:53-0500 Body temperature 97.9 [degF] Cindy Lopes CNP Work Phone: [facility] Work Phone: 08-11-2018 15:53-0500 Body weight 106.6 kg Cindy Lopes CNP Work Phone: [facility] Work Phone: 08-11-2018 15:53-0500 Diastolic blood pressure 78 mm[Hg] Cindy Lopes CNP Work Phone: [facility] Work Phone: 08-11-2018 15:53-0500 Heart rate 82 /min Cindy Lopes CNP Work Phone: [facility] Work Phone: 08-11-2018 15:53-0500 Inhaled oxygen concentration 21 % Cindy Lopes CNP Work Phone: [facility] Work Phone: 08-11-2018 15:53-0500 Inhaled oxygen flow rate 0 L/min Cindy Lopes CNP Work Phone: [facility] Work Phone: 08-11-2018 15:53-0500 Pulse Oximetry 95 % Cindy Lopes [facility] Work Phone: 08-11-2018 15:53-0500 Respiratory rate 18 /min Cindy Lopes CNP Work Phone: [facility] Work Phone: 08-11-2018 15:53-0500 SaO2% (BldA) [Mass fraction] 95 % Cindy Lopes CNP Work Phone: [facility] Work Phone: 08-11-2018 15:53-0500 Systolic blood pressure 128 mm[Hg] Cindy Lopes CNP Work Phone: [facility] Work Phone: 08-11-2018 15:53-0500 Weight 106.6 kg Cindy Lopes [facility] Work Phone: 07-22-2018 15:15-0500 Body height 162.56 cm Cindy Walkerkadi BRET Work Phone: [facility] Work Phone: 07-22-2018 15:15-0500 Body mass index (BMI) [Ratio] 40.4 kg/m2 Cindy Lopes CNP Work Phone: [facility] Work Phone: 07-22-2018 15:15-0500 Body surface area Derived from formula 2.1 m2 Cindy Loeps CNP Work Phone: [facility] Work Phone: 07-22-2018 15:15-0500 Body temperature 97.5 [degF] Cindy Lopes CNP Work Phone: [facility] Work Phone: 07-22-2018 15:15-0500 Body weight 106.79 kg Cindy Lopes CNP Work Phone: [facility] Work Phone: 07-22-2018 15:15-0500 Diastolic blood pressure 80 mm[Hg] Cindy Lopes CNP Work Phone: [facility] Work Phone: 07-22-2018 15:15-0500 Heart rate 95 /min Cindy Lopes CNP Work Phone: [facility] Work Phone: 07-22-2018 15:15-0500 Pulse Oximetry 100 % Cindy Lopes [facility] Work Phone: 07-22-2018 15:15-0500 Respiratory rate 18 /min Cindy Lopes CNP Work Phone: [facility] Work Phone: 07-22-2018 15:15-0500 SaO2% (BldA) [Mass fraction] 100 % Cindy Lopes CNP Work Phone: [facility] Work Phone: 07-22-2018 15:15-0500 Systolic blood pressure 132 mm[Hg] Cindy Lopes CNP Work Phone: [facility] Work Phone: 07-22-2018 15:15-0500 Weight 106.79 kg Cindy [facility] Work Phone: 01-20-2018 15:40-0400 BMI (Body Mass Index) 39.39 kg/m2 Cindy [facility] 01-20-2018 15:40-0400 Body Temperature 97.4 [degF] Cindy [facility] 01-20-2018 15:40-0400 BP Diastolic 86 mm[Hg] [facility] 01-20-2018 15:40-0400 BP Systolic 138 mm[Hg] [facility] 01-20-2018 15:40-0400 BSA (Body Surface Area) 2.17 m2 Cindy [facility] 01-20-2018 15:40-0400 Height 162.56 cm [facility] 01-20-2018 15:40-0400 Pulse (Heart Rate) 107 /min [facility] 01-20-2018 15:40-0400 Pulse Oximetry 97 % [facility] 01-20-2018 15:40-0400 Respiratory Rate 20 /min [facility] 01-20-2018 15:40-0400 Weight 104.1 kg [facility] 01-20-2018 13:40-0400 Body height 162.56 cm Cnidy [facility] Work Phone: [facility] Work Phone: 01-20-2018 13:40-0400 Body mass index (BMI) [Ratio] 39.3 kg/m2 Cindy Walkerkadi QUEEN Work Phone: [facility] Work Phone: 01-20-2018 13:40-0400 Body surface area Derived from formula 2.07 m2 Cindy Lopes CNP Work Phone: [facility] Work Phone: 01-20-2018 13:40-0400 Body temperature 97.4 [degF] Cindy Lopes CNP Work Phone: [facility] Work Phone: 01-20-2018 13:40-0400 Body weight 103.87 kg Cindy Lopes CNP Work Phone: [facility] Work Phone: 01-20-2018 13:40-0400 Diastolic blood pressure 86 mm[Hg] Cindy Lopes CNP Work Phone: [facility] Work Phone: 01-20-2018 13:40-0400 Heart rate 107 /min Cindy Lopes CNP Work Phone: [facility] Work Phone: 01-20-2018 13:40-0400 Respiratory rate 20 /min Cindy Lopes CNP Work Phone: [facility] Work Phone: 01-20-2018 13:40-0400 Systolic blood pressure 138 mm[Hg] Cindy Lopes CNP Work Phone: [facility] Work Phone: 01-20-2018 13:40-0400 Weight 103.87 kg Cindy Walkerkadi [facility] Work Phone: 10-21-2017 18:41-0400 BMI (Body Mass Index) 40.53 kg/m2 Cindy Walkerkadi [facility] 10-21-2017 18:41-0400 BP Diastolic 74 mm[Hg] Cindy Walkerkadi [facility] 10-21-2017 18:41-0400 BP Systolic 130 mm[Hg] Cindy Lopes [facility] 10-21-2017 18:41-0400 BSA (Body Surface Area) 2.2 m2 Cindy Lopes [facility] 10-21-2017 18:41-0400 Height 162.56 cm Cindy Lopes [facility] 10-21-2017 18:41-0400 Pulse (Heart Rate) 81 /min Cindy [facility] 10-21-2017 18:41-0400 Weight 107.11 kg Cindy Lopes [facility] 10-21-2017 16:41-0400 Body height 162.56 cm Cindy Lopes CNP Work Phone: [facility] Work Phone: 10-21-2017 16:41-0400 Body mass index (BMI) [Ratio] 40.5 kg/m2 Cindy Lopes CNP Work Phone: [facility] Work Phone: 10-21-2017 16:41-0400 Body surface area Derived from formula 2.1 m2 Cindy Lopes CNP Work Phone: [facility] Work Phone: 10-21-2017 16:41-0400 Body weight 107.05 kg Cindy Lopes CNP Work Phone: [facility] Work Phone: 10-21-2017 16:41-0400 Diastolic blood pressure 74 mm[Hg] Cindy Lopes CNP Work Phone: [facility] Work Phone: 10-21-2017 16:41-0400 Heart rate 81 /min Cindy Lopes CNP Work Phone: [facility] Work Phone: 10-21-2017 16:41-0400 Systolic blood pressure 130 mm[Hg] Cindy Lopes [facility] Work Phone: [facility] Work Phone: 02-05-2017 15:19-0400 BMI (Body Mass Index) 40.68 kg/m2 Cindy [facility] 02-05-2017 15:19-0400 Body Temperature 97.5 [degF] Cindy [facility] 02-05-2017 15:19-0400 BP Diastolic 90 mm[Hg] [facility] 02-05-2017 15:19-0400 BP Systolic 140 mm[Hg] [facility] 02-05-2017 15:19-0400 BSA (Body Surface Area) 2.2 m2 [facility] 02-05-2017 15:19-0400 Height 162.56 cm [facility] 02-05-2017 15:19-0400 Pulse (Heart Rate) 105 /min [facility] 02-05-2017 15:19-0400 Pulse Oximetry 93 % [facility] 02-05-2017 15:19-0400 Respiratory Rate 21 /min [facility] 02-05-2017 15:19-0400 Weight 107.5 kg [facility] 01-22-2017 16:04-0400 BMI (Body Mass Index) 42.44 kg/m2 [facility] 01-22-2017 16:04-0400 Body Temperature 98.5 [degF] [facility] 01-22-2017 16:04-0400 BP Diastolic 85 mm[Hg] [facility] 01-22-2017 16:04-0400 BP Systolic 135 mm[Hg] [facility] 01-22-2017 16:04-0400 BSA (Body Surface Area) 2.25 m2 [facility] 01-22-2017 16:04-0400 Height 162.56 cm [facility] 01-22-2017 16:04-0400 Pulse (Heart Rate) 78 /min [facility] 01-22-2017 16:04-0400 Pulse Oximetry 95 % [facility] 01-22-2017 16:04-0400 Respiratory Rate 20 /min [facility] 01-22-2017 16:04-0400 Weight 112.15 kg [facility] 01-05-2017 18:24-0400 BMI (Body Mass Index) 42.27 kg/m2 [facility] 01-05-2017 18:24-0400 Body Temperature 98.4 [degF] [facility] 01-05-2017 18:24-0400 BP Diastolic 71 mm[Hg] [facility] 01-05-2017 18:24-0400 BP Systolic 118 mm[Hg] [facility] 01-05-2017 18:24-0400 BSA (Body Surface Area) 2.25 m2 [facility] 01-05-2017 18:24-0400 Height 162.56 cm [facility] 18:24-0400 Pulse (Heart Rate) 90 /min Cindy Walker [facility] 01-05-2017 18:24-0400 Pulse Oximetry 94 % [facility] 01-05-2017 18:24-0400 Respiratory Rate 22 /min Cindy [facility] 01-05-2017 18:24-0400 Weight 111.7 kg Cindy [facility] 12-30-2016 12:33-0400 BMI (Body Mass Index) 42.65 kg/m2 Cindy [facility] t[facility] 12-30-2016 12:33-0400 Body Temperature 97.3 [degF] Cindy [facility] 12-30-2016 12:33-0400 BP Diastolic 75 mm[Hg] [facility] 12-30-2016 12:33-0400 BP Systolic 124 mm[Hg] Cindy [facility] 12-30-2016 12:33-0400 BSA (Body Surface Area) 2.26 m2 Cindy [facility] 12-30-2016 12:33-0400 Height 162.56 cm Cindy [facility] 12-30-2016 12:33-0400 Pulse (Heart Rate) 81 /min Cindy [facility] 12-30-2016 12:33-0400 Pulse Oximetry 97 % Cindy [facility] 12-30-2016 12:33-0400 Respiratory Rate 20 /min Cindy [facility] 12-30-2016 12:33-0400 Weight 112.72 kg Cindy [facility] 12-14-2016 18:23-0400 BMI (Body Mass Index) 42.74 kg/m2 Cindy [facility] 12-14-2016 18:23-0400 Body Temperature 97.3 [degF] Cindy [facility] 12-14-2016 18:23-0400 BP Diastolic 77 mm[Hg] [facility] 12-14-2016 18:23-0400 BP Systolic 128 mm[Hg] [facility] 12-14-2016 18:23-0400 BSA (Body Surface Area) 2.26 m2 [facility] 12-14-2016 18:23-0400 Height 162.56 cm [facility] 12-14-2016 18:23-0400 Pulse (Heart Rate) 76 /min [facility] 12-14-2016 18:23-0400 Pulse Oximetry 94 % [facility] 12-14-2016 18:23-0400 Respiratory Rate 18 /min [facility] 12-14-2016 18:23-0400 Weight 112.95 kg [facility] 11-11-2016 18:11-0400 BMI (Body Mass Index) 43.77 kg/m2 [facility] 11-11-2016 18:11-0400 Body Temperature 97 [degF] [facility] 11-11-2016 18:11-0400 BP Diastolic 81 mm[Hg] [facility] 11-11-2016 18:11-0400 BP Systolic 141 mm[Hg] [facility] 11-11-2016 18:11-0400 BSA (Body Surface Area) 2.29 m2 [facility] 11-11-2016 18:11-0400 Height 162.56 cm [facility] 11-11-2016 18:11-0400 Pulse (Heart Rate) 70 /min [facility] 11-11-2016 18:11-0400 Pulse Oximetry 96 % [facility] 11-11-2016 18:11-0400 Respiratory Rate 10 /min [facility] 11-11-2016 18:11-0400 Weight 115.67 kg [facility] 11-04-2016 17:48-0400 BMI (Body Mass Index) 42.59 kg/m2 [facility] 11-04-2016 17:48-0400 Body Temperature 97.7 [degF] [facility] 11-04-2016 17:48-0400 BP Diastolic 77 mm[Hg] [facility] 11-04-2016 17:48-0400 BP Systolic 120 mm[Hg] [facility] 11-04-2016 17:48-0400 BSA (Body Surface Area) 2.28 m2 [facility] 11-04-2016 17:48-0400 Height 163.83 cm Cindy [facility] 11-04-2016 17:48-0400 Pulse (Heart Rate) 85 /min Cindy [facility] 11-04-2016 17:48-0400 Pulse Oximetry 94 % Cindy [facility] 11-04-2016 17:48-0400 Respiratory Rate 16 /min Cindy [facility] 11-04-2016 17:48-0400 Weight 114.31 kg Cindy [facility] 11-02-2016 17:38-0400 BMI (Body Mass Index) 43.43 kg/m2 [facility] 11-02-2016 17:38-0400 Body Temperature 97.7 [degF] Cindy [facility] 11-02-2016 17:38-0400 BP Diastolic 74 mm[Hg] [facility] 11-02-2016 17:38-0400 BP Systolic 137 mm[Hg] [facility] 11-02-2016 17:38-0400 BSA (Body Surface Area) 2.28 m2 Cindy [facility] 11-02-2016 17:38-0400 Height 162.56 cm Cindy [facility] 11-02-2016 17:38-0400 Pulse (Heart Rate) 94 /min Cindy [facility] 11-02-2016 17:38-0400 Pulse Oximetry 95 % Cindy [facility] 11-02-2016 17:38-0400 Respiratory Rate 19 /min Cindy [facility] 11-02-2016 17:38-0400 Weight 114.76 kg Cindy [facility] 10-19-2016 19:49-0400 BMI (Body Mass Index) 43.77 kg/m2 Cindy [facility] 10-19-2016 19:49-0400 Body Temperature 96.9 [degF] Cindy [facility] 10-19-2016 19:49-0400 BP Diastolic 88 mm[Hg] [facility] 10-19-2016 19:49-0400 BP Systolic 135 mm[Hg] [facility] 10-19-2016 19:49-0400 BSA (Body Surface Area) 2.29 m2 Cindy [facility] 10-19-2016 19:49-0400 Height 162.56 cm [facility] 10-19-2016 19:49-0400 Pulse (Heart Rate) 86 /min [facility] 10-19-2016 19:49-0400 Pulse Oximetry 96 % [facility] 10-19-2016 19:49-0400 Respiratory Rate 18 /min [facility] 10-19-2016 19:49-0400 Weight 115.67 kg [facility] 10-01-2016 18:38-0400 BMI (Body Mass Index) 43.81 kg/m2 [facility] 10-01-2016 18:38-0400 Body Temperature 97.9 [degF] [facility] 10-01-2016 18:38-0400 BP Diastolic 77 mm[Hg] [facility] 10-01-2016 18:38-0400 BP Systolic 130 mm[Hg] [facility] 10-01-2016 18:38-0400 BSA (Body Surface Area) 2.29 m2 [facility] 10-01-2016 18:38-0400 Height 162.56 cm [facility] 10-01-2016 18:38-0400 Pulse (Heart Rate) 93 /min [facility] 10-01-2016 18:38-0400 Pulse Oximetry 93 % [facility] 10-01-2016 18:38-0400 Respiratory Rate 20 /min [facility] 10-01-2016 18:38-0400 Weight 115.78 kg [facility] 09-09-2016 18:00-0400 BMI (Body Mass Index) 41.88 kg/m2 [facility] 09-09-2016 18:00-0400 Body Temperature 99.3 [degF] [facility] 09-09-2016 18:00-0400 BP Diastolic 85 mm[Hg] [facility] 09-09-2016 18:00-0400 BP Systolic 179 mm[Hg] [facility] 09-09-2016 18:00-0400 BSA (Body Surface Area) 2.24 m2 [facility] 09-09-2016 18:00-0400 Height 162.56 cm Cindy [facility] 09-09-2016 18:00-0400 Pulse (Heart Rate) 93 /min Cindy [facility] 09-09-2016 18:00-0400 Respiratory Rate 19 /min Cindy [facility] 09-09-2016 18:00-0400 Weight 110.68 kg [facility] 08-10-2016 18:09-0500 BMI (Body Mass Index) 41.2 kg/m2 [facility] 08-10-2016 18:09-0500 Body Temperature 98.1 [degF] [facility] 08-10-2016 18:09-0500 BP Diastolic 95 mm[Hg] [facility] 08-10-2016 18:09-0500 BP Systolic 150 mm[Hg] [facility] 08-10-2016 18:09-0500 BSA (Body Surface Area) 2.22 m2 [facility] 08-10-2016 18:09-0500 Height 162.56 cm [facility] 08-10-2016 18:09-0500 Pulse (Heart Rate) 74 /min [facility] 08-10-2016 18:09-0500 Pulse Oximetry 95 % [facility] 08-10-2016 18:09-0500 Respiratory Rate 19 /min [facility] 08-10-2016 18:09-0500 Weight 108.86 kg Cindy [facility] 11-02-2015 18:47-0400 BMI (Body Mass Index) 39.31 kg/m2 Cindy [facility] 11-02-2015 18:47-0400 Body Temperature 97.6 [degF] Cindy [facility] 11-02-2015 18:47-0400 BP Diastolic 87 mm[Hg] [facility] 11-02-2015 18:47-0400 BP Systolic 163 mm[Hg] [facility] 11-02-2015 18:47-0400 BSA (Body Surface Area) 2.17 m2 [facility] 11-02-2015 18:47-0400 Height 162.56 cm [facility] 11-02-2015 18:47-0400 Pulse (Heart Rate) 86 /min [facility] 11-02-2015 18:47-0400 Pulse Oximetry 97 % [facility] 11-02-2015 18:47-0400 Respiratory Rate 18 /min [facility] 11-02-2015 18:47-0400 Weight 103.87 kg [facility] 10-02-2015 15:27-0400 BMI (Body Mass Index) 39.91 kg/m2 [facility] 10-02-2015 15:27-0400 Body Temperature 97.3 [degF] [facility] 10-02-2015 15:27-0400 BP Diastolic 79 mm[Hg] [facility] 10-02-2015 15:27-0400 BP Systolic 130 mm[Hg] [facility] 10-02-2015 15:27-0400 BSA (Body Surface Area) 2.18 m2 [facility] 10-02-2015 15:27-0400 Height 162.56 cm [facility] 10-02-2015 15:27-0400 Pulse (Heart Rate) 96 /min [facility] 10-02-2015 15:27-0400 Pulse Oximetry 98 % [facility] 10-02-2015 15:27-0400 Respiratory Rate 16 /min [facility] 10-02-2015 15:27-0400 Weight 105.46 kg [facility] 07-16-2015 16:26-0500 BMI (Body Mass Index) 39.48 kg/m2 [facility] 07-16-2015 16:26-0500 Body Temperature 97.2 [degF] [facility] 07-16-2015 16:26-0500 BP Diastolic 84 mm[Hg] [facility] 07-16-2015 16:26-0500 BP Systolic 132 mm[Hg] [facility] 07-16-2015 16:26-0500 BSA (Body Surface Area) 2.17 m2 [facility] 07-16-2015 16:26-0500 Height 162.56 cm [facility] 07-16-2015 16:26-0500 Pulse (Heart Rate) 87 /min Cindy Walker [facility] 07-16-2015 16:26-0500 Pulse Oximetry 95 % Cindy [facility] 07-16-2015 16:26-0500 Respiratory Rate 20 /min Cindy [facility] 07-16-2015 16:26-0500 Weight 104.33 kg Cindy [facility] 05-09-2015 15:02-0500 BMI (Body Mass Index) 39.84 kg/m2 Cindy [facility] 05-09-2015 15:02-0500 Body Temperature 98 [degF] Cindy [facility] 05-09-2015 15:02-0500 BP Diastolic 81 mm[Hg] [facility] 05-09-2015 15:02-0500 BP Systolic 126 mm[Hg] Cindy [facility] 05-09-2015 15:02-0500 BSA (Body Surface Area) 2.18 m2 Cindy [facility] 05-09-2015 15:02-0500 Height 162.56 cm [facility] 05-09-2015 15:02-0500 Pulse (Heart Rate) 95 /min Cindy [facility] 05-09-2015 15:02-0500 Respiratory Rate 18 /min Cindy [facility] 05-09-2015 15:02-0500 Weight 105.29 kg [facility] 01-08-2015 12:00-0400 BMI (Body Mass Index) 36.69 kg/m2 [facility] 01-08-2015 12:00-0400 Body Temperature 98 [degF] [facility] 01-08-2015 12:00-0400 BP Diastolic 88 mm[Hg] [facility] 01-08-2015 12:00-0400 BP Systolic 128 mm[Hg] [facility] 01-08-2015 12:00-0400 BSA (Body Surface Area) 2.14 m2 [facility] 01-08-2015 12:00-0400 Height 165.1 cm [facility] 01-08-2015 12:00-0400 P[facility] ([facility] Rate) 81 /[facility] 01-08-2015 12:00-0400 Respiratory Rate 18 /min [facility] 01-08-2015 12:00-0400 Weight 100.02 kg [facility] 12-19-2014 17:42-0400 BMI (Body Mass Index) 36.28 kg/m2 [facility] 12-19-2014 17:42-0400 Body Temperature 98.3 [degF] [facility] 12-19-2014 17:42-0400 BP Diastolic 68 mm[Hg] [facility] 12-19-2014 17:42-0400 BP Systolic 112 mm[Hg] [facility] 12-19-2014 17:42-0400 BSA (Body Surface Area) 2.13 m2 Cindy [facility] 12-19-2014 17:42-0400 Height 165.1 cm [facility] 12-19-2014 17:42-0400 Pulse (Heart Rate) 91 /min [facility] 12-19-2014 17:42-0400 Pulse Oximetry 97 % [facility] 12-19-2014 17:42-0400 Respiratory Rate 18 /min [facility] 12-19-2014 17:42-0400 Weight 98.88 kg [facility] 11-06-2014 11:22-0400 BP Diastolic 70 mm[Hg] [facility] 11-06-2014 11:22-0400 BP Systolic 126 mm[Hg] [facility] 11-06-2014 11:22-0400 Pulse (Heart Rate) 85 /min [facility] 11-06-2014 10:51-0400 BMI (Body Mass Index) 36.48 kg/m2 [facility] 11-06-2014 10:51-0400 Body Temperature 97.9 [degF] [facility] 11-06-2014 10:51-0400 BP Diastolic 84 mm[Hg] [facility] 11-06-2014 10:51-0400 BP Systolic 139 mm[Hg] [facility] 11-06-2014 10:51-0400 BSA (Body Surface Area) 2.14 m2 Cindy [facility] 11-06-2014 10:51-0400 Height 165.1 cm Cindy [facility] 11-06-2014 10:51-0400 Pulse (Heart Rate) 99 /min [facility] 11-06-2014 10:51-0400 Respiratory Rate 17 /min Cindy [facility] 11-06-2014 10:51-0400 Weight 99.45 kg Cindy [facility] 10-30-2014 11:52-0400 BMI (Body Mass Index) 36.44 kg/m2 Cindy [facility] 10-30-2014 11:52-0400 Body Temperature 97.5 [degF] Cindy [facility] 10-30-2014 11:52-0400 BP Diastolic 96 mm[Hg] [facility] 10-30-2014 11:52-0400 BP Systolic 138 mm[Hg] [facility] 10-30-2014 11:52-0400 BSA (Body Surface Area) 2.13 m2 Cindy [facility] 10-30-2014 11:52-0400 Height 165.1 cm Cindy [facility] 10-30-2014 11:52-0400 Pulse (Heart Rate) 80 /min Cindy [facility] Part[facility] 10-30-2014 11:52-0400 Respiratory Rate 16 /min Cindy [facility] 10-30-2014 11:52-0400 Weight 99.34 kg [facility] 10-19-2014 12:38-0400 BMI (Body Mass Index) 35.61 kg/m2 Cindy [facility] 10-19-2014 12:38-0400 Body Temperature 97.3 [degF] Cindy [facility] 10-19-2014 12:38-0400 BP Diastolic 88 mm[Hg] [facility] 10-19-2014 12:38-0400 BP Systolic 133 mm[Hg] [facility] 10-19-2014 12:38-0400 BSA (Body Surface Area) 2.11 m2 [facility] 10-19-2014 12:38-0400 Height 165.1 cm [facility] 10-19-2014 12:38-0400 Pulse (Heart Rate) 92 /min [facility] 10-19-2014 12:38-0400 Respiratory Rate 18 /min [facility] 10-19-2014 12:38-0400 Weight 97.07 kg [facility] Encounters Encounter Date Encounter Type Care Provider Facility Start: 01-17-2025 ambulatory MAYRA HENRYUC [facility] Start: 12-15-2024 End: 12-15-2024 Emergency department patient visit Dr. Mayra Cortez MD Work Phone: -Emergency Department Work Phone: Start: 08-07-2024 End: 08-08-2024 ambulatory Julio Blake Facility:[facility] Start: 03-20-2024 End: 03-20-2024 ambulatory MAYRA CORTEZ [facility] Start: 03-16-2024 End: 03-16-2024 ambulatory MAYRA CORTEZ [facility] Start: 07-28-2023 End: 07-28-2023 Emergency department patient visit [facility] Work Phone: Start: 06-29-2023 End: 06-29-2023 ambulatory NICK Nesbitt Work Phone: [facility] Work Phone: Start: 06-29-2023 End: 06-29-2023 Patient encounter procedure [employer] Bethany Nesbitt Work Phone: [facility] Start: 04-14-2023 End: 04-14-2023 ambulatory PARI MUTU[employer] TICK[employer] CASHIERKadi Nesbitt Work Phone: [facility] Work Phone: Start: 04-14-2023 End: 04-14-2023 Patient encounter procedure [employer] M[employer] T[employer] CASHIERKadi Nesbitt Work Phone: [facility] Start: 04-05-2023 End: 04-05-2023 ambulatory Bethany Nesbitt [employer] OPERATOR Facility:[facility] Start: 04-05-2023 End: 04-05-2023 ambulatory PARI M[employer] TICK[employer] CASHIERKadi Nesbitt Work Phone: [facility] Work Phone: Start: 04-05-2023 End: 04-05-2023 Patient encounter procedure [employer] Bethany Nesbitt Work Phone: [facility] Start: 12-03-2022 End: 12-03-2022 ambulatory PARI M[employer]EL TICK[employer] CASHIER Bethany Nesbitt Work Phone: [facility] Work Phone: Start: 12-03-2022 End: 12-03-2022 Patient encounter procedure PARI MUTUEL TICKET CASHIER Bethany Nesbitt Work Phone: [facility] Start: 11-04-2022 End: 11-04-2022 Patient encounter procedure NICK Nesbitt Work Phone: [facility] Start: 10-14-2022 End: 10-14-2022 ambulatory Bethany Nesbitt PARI MUTUEL TICKET CASHIER-NITROGEN OPERATOR Facility:[facility] Start: 10-14-2022 End: 10-14-2022 Admission to same day surgery center Physician None Work Phone: [facility]-Procedural Care Unit OP Start: 10-14-2022 End: 10-14-2022 ambulatory Physician None Work Phone: [facility] Work Phone: Start: 10-09-2022 End: 10-09-2022 ambulatory Physician None Work Phone: [facility] Work Phone: Start: 10-09-2022 End: 10-09-2022 Patient encounter procedure Physician None Work Phone: [facility] Start: 09-30-2022 End: 09-30-2022 ambulatory Bethany Nesbitt [employer]I M[employer]ICK[employer] CASHIER-NITROGEN OPERATOR Facility:[facility] Start: 09-30-2022 End: 09-30-2022 ambulatory Physician None Work Phone: [facility] Work Phone: Start: 09-30-2022 End: 09-30-2022 Patient encounter procedure Physician None Work Phone: [facility]-CT Scan Start: 09-29-2022 End: 09-29-2022 ambulatory Physician None Work Phone: [facility] Work Phone: Start: 09-29-2022 End: 09-29-2022 Patient encounter procedure Physician None Work Phone: [facility] Start: 09-25-2022 End: 09-25-2022 ambulatory PARI MUTU[employer] TICK[employer] CASHIER Bethany Nebsitt Work Phone: [facility] Work Phone: Start: 09-25-2022 End: 09-25-2022 Patient encounter procedure PARI MUTUEL TICKET CASHIER Bethany Nesbitt Work Phone: [facility] Start: 09-21-2022 End: 09-21-2022 ambulatory Bethany Deandre Nesbitt PARI MUTUEL TICKET CASHIER-NITROGEN OPERATOR Facility:[facility] Start: 09-21-2022 End: 09-21-2022 Patient encounter procedure PARI MUTUEL TICKET CASHIER Bethany Nesbitt [facility] Start: 09-01-2022 End: 09-01-2022 ambulatory PARI MUTUEL TICKET CASHIER Bethany Nesbitt Work Phone: [facility] Work Phone: Start: 09-01-2022 End: 09-01-2022 Patient encounter procedure PARI MUTUEL TICKET CASHIER Bethany Nesbitt Work Phone: [facility] Start: 08-13-2022 End: 08-13-2022 ambulatory PARI M[employer] TICK[employer] CASHIER Bethany Nesbitt Work Phone: [facility] Work Phone: Start: 08-13-2022 End: 08-13-2022 Patient encounter procedure PARI MUTUEL TICKET CASHIERKadi Nesbitt Work Phone: [facility] Start: 07-28-2022 End: 07-28-2022 ambulatory Bethany Nesbitt PARI MUTUEL TICKET CASHIER-NITROGEN OPERATOR Facility:[facility] Start: 07-28-2022 End: 07-28-2022 ambulatory NITROGEN OPERATOR Bethany Nesbitt Work Phone: [facility] Work Phone: Start: 07-28-2022 End: 07-28-2022 Patient encounter procedure NITROGEN OPERATOR Bethany Nesbitt Work Phone: [facility]-Lab-Physicia n Office Specimen Start: 07-01-2022 End: 07-01-2022 ambulatory NITROGEN OPERATOR Bethany Nesbitt Work Phone: [facility] Work Phone: Start: 07-01-2022 End: 07-01-2022 Patient encounter procedure BRET Nesbitt Work Phone: [facility] Start: 12-27-2021 ambulatory AGUSTO AMOS [facility] Start: 10-08-2021 End: 10-08-2021 Patient encounter procedure BRET Nesbitt Work Phone: [facility] Start: 03-04-2021 End: 01-24-2021 FQHC visit, estab pt Noemi Chon NITROGEN OPERATOR Work Phone: [facility] Work Phone: Start: 12-04-2020 End: 12-05-2020 ambulatory CINDY Vazquez [facility] Start: 12-04-2020 End: 12-04-2020 Subsequent hospital visit by physician Cindy Lopes APRN - NITROGEN OPERATOR Work Phone: [facility] Start: 11-26-2020 End: 01-24-2021 FQHC visit new patient Shazia Bhatti CNP Work Phone: [facility] Work Phone: Start: 09-19-2020 End: 09-19-2020 Established patient Mimi Dewitt Work Phone: [facility] Work Phone: Start: 09-07-2020 End: 09-07-2020 Telemedicine consultation with patient Ro Austin Work Phone: [facility] Work Phone: Start: 08-27-2020 End: 08-27-2020 Patient encounter procedure Xi Roberson Work Phone: Dr.Gene Lin [facility] Work Phone: Start: 08-03-2020 Patient encounter procedure ALDO LI [facility] Start: 03-05-2020 End: 03-05-2020 General Mimi Dewitt Work Phone: [facility] Work Phone: Start: 03-05-2020 End: 03-05-2020 Telemedicine consultation with patient Maty Love Work Phone: [facility] Work Phone: Start: 03-05-2020 End: 03-05-2020 Patient encounter procedure Maty Love Work Phone: [facility] Work Phone: Start: 01-23-2020 End: 01-23-2020 Established patient Noemi Givens Work Phone: [facility] Work Phone: Start: 11-27-2019 End: 11-27-2019 Telemedicine consultation with patient Maty Love Work Phone: [facility] Work Phone: Start: 11-02-2019 End: 11-02-2019 Patient encounter procedure Maty Love Work Phone: [facility] Work Phone: Start: 09-28-2019 End: 09-28-2019 Telemedicine consultation with patient Maty Love Work Phone: [facility] Work Phone: Start: 09-28-2019 End: 08-18-2019 Patient encounter procedure Maty Love Work Phone: [facility] Work Phone: Start: 08-18-2019 End: 08-18-2019 Established patient Mimi Dewitt Work Phone: [facility] Work Phone: Start: 08-18-2019 End: 08-18-2019 Established patient Mimi Dewitt Work Phone: [facility] Work Phone: Start: 07-13-2019 End: 07-13-2019 Established patient Cindy Lopes Work Phone: [facility] Work Phone: Start: 01-06-2019 End: 01-06-2019 Established patient Mimi Dewitt Work Phone: [facility] Work Phone: Start: 12-21-2018 End: 12-21-2018 Emergency department patient visit Kimsybil Zazuetatogi Work Phone: Dr.Gene Lin [facility] Work Phone: Start: 12-12-2018 End: 12-12-2018 Patient encounter procedure Cindy Moses Work Phone: [facility] Work Phone: Start: 11-24-2018 End: 11-24-2018 Emergency department patient visit Jovanna Quispe Work Phone: Dr.Gene Lin [facility] Work Phone: Start: 11-24-2018 Limit oral eval prob lm focus Jovanna Jose Enrique Work Phone: [facility] Work Phone: Start: 10-06-2018 End: 10-06-2018 Established patient Leilani Abarca Work Phone: [facility] Work Phone: Start: 10-06-2018 End: 10-06-2018 Established patient Cindy Lopes Work Phone: [facility] Work Phone: Start: 10-01-2018 End: 10-01-2018 Patient encounter procedure Josh Rodriguez Facility:[facility] Start: 09-13-2018 End: 09-13-2018 Patient encounter procedure Shazia Stevens Work Phone: [facility] Work Phone: Start: 08-11-2018 End: 08-11-2018 Established patient Cindy Lopes Work Phone: [facility] Work Phone: Start: 07-29-2018 End: 07-29-2018 Patient encounter procedure Cindy Lopes Work Phone: [facility] Start: 07-22-2018 End: 07-22-2018 Established patient Cindy Lopes Work Phone: [facility] Work Phone: Start: 01-20-2018 Medical Cindy Lopes Other [facility] Start: 01-20-2018 Office outpatient vi sit 15 minutes Cindy Walkerkadi Other [facility] Start: 01-20-2018 End: 01-20-2018 Patient encounter procedure Cindy Lopes CNP Work Phone: [facility] Work Phone: Start: 10-22-2017 End: 10-22-2017 Patient encounter procedure Conversion Provider Work Phone: [facility] Work Phone: Start: 10-21-2017 Comprehensive metabo lic panel Cindy Lopes [facility] Start: 10-21-2017 Office outpatient vi sit 10 minutes Xi Roberson Other [facility] Start: 10-21-2017 End: 10-21-2017 Patient encounter procedure Cindy Lopes CNP Work Phone: [facility] Work Phone: Start: 02-15-2017 End: 02-16-2017 Emergency department patient visit CINDY M MOSES [facility] Start: 02-05-2017 Office outpatient vi sit 15 minutes Cindy Walkerkadi Other [facility] Start: 02-05-2017 Physical performance test/raquel w/reprt ea 15 min Cindy Lopes [facility] Start: 02-05-2017 Radiologic examinati on knee 3 views Cindy Lopes [facility] Start: 02-05-2017 End: 02-05-2017 Patient encounter procedure Cindy Lopes BRET Work Phone: [facility] Work Phone: Start: 02-01-2017 End: 02-02-2017 Emergency department patient visit CINDY LOPES [facility] Start: 01-22-2017 Antibody borrelia burgdorferi lyme disease Cindy Lopes [facility] Start: 01-22-2017 Antistreptolysin o titer Cindy Lopes [facility] Start: 01-22-2017 [facility]ullinated [facility] Start: 01-22-2017 Office outpatient vi sit 15 minutes Cindy Walkerkadi [facility] Start: 01-22-2017 [facility]umatoid factor [facility] Start: 01-22-2017 End: 01-22-2017 Patient encounter procedure Cindy Lopes BRET Work Phone: [facility] Work Phone: Start: 01-05-2017 Ct thorax w/o & w/co ntrast material Cindy Lopes [facility] Start: 01-05-2017 Office outpatient vi sit 15 minutes Cindy Moses Other [facility] Start: 01-05-2017 End: 01-05-2017 Patient encounter procedure Cindy Moses QUEEN Work Phone: [facility] Work Phone: Start: 01-04-2017 End: 01-05-2017 Ambulatory CINDYHERIBERTO LOPES [facility] Start: 12-30-2016 End: 12-30-2016 Patient encounter procedure Cindy Lopes CNP Work Phone: [facility] Work Phone: Start: 12-30-2016 Office outpatient vi sit 15 minutes Cindy Lopes Other [facility] Start: 12-28-2016 End: 12-28-2016 Emergency department patient visit MD CINDY [facility] Start: 12-14-2016 Behavioral Health Precious aguilar Other [facility] Start: 12-14-2016 Ct thorax w/o & w/co ntrast material Cindy [facility] Start: 12-14-2016 Office outpatient vi sit 15 minutes Cindy Moses Other [facility] Start: 12-14-2016 End: 12-14-2016 Patient encounter procedure Cindy Lopes CNP Work Phone: [facility] Work Phone: Start: 12-14-2016 Tobacco use cessatio n intermediate 3-10 minutes Cindy [facility] Start: 11-11-2016 Mra abdomen w/wo con trast material Cindy [facility] Start: 11-11-2016 Mra lower extremity w/wo contrast material Cindy [facility] Start: 11-11-2016 Office outpatient vi sit 15 minutes Cindy Lopes Other [facility] Start: 11-11-2016 End: 11-11-2016 Patient encounter procedure Cindy oLpes CNP Work Phone: [facility] Work Phone: Start: 11-04-2016 Office outpatient vi sit 15 minutes Noemi Givens Other [facility] Start: 11-04-2016 End: 11-04-2016 Patient encounter procedure Cindy Lopes CNP Work Phone: [facility] Work Phone: Start: 11-02-2016 Behavioral Health Preciousrandy aguilar Other [facility] Start: 11-02-2016 Office outpatient vi sit 15 minutes Cindy Lopes Other [facility] Start: 11-02-2016 End: 11-02-2016 Patient encounter procedure Cindy Lopes CNP Work Phone: [facility] Work Phone: Start: 10-19-2016 Chest x-ray Cindy Lopes [facility] Start: 10-19-2016 Comprehensive metabo lic panel Cindy Lopes [facility] Start: 10-19-2016 Gluc bld gluc mntr d ev cleared fda spec home use Cindy Lopes [facility] Start: 10-19-2016 Office outpatient vi sit 15 minutes Nitin Lawrence Other [facility] Start: 10-19-2016 End: 10-19-2016 Patient encounter procedure Cindy Lopes CNP Work Phone: [facility] Work Phone: Start: 10-01-2016 Culture bacterial quanttative colony count urine Cindy [facility] Start: 10-01-2016 Office outpatient vi sit 15 minutes Cindy Lopes Other [facility] Start: 10-01-2016 Us retroperitoneal r eal time w/image complete Cindy Lopes [facility] Start: 10-01-2016 End: 10-01-2016 Patient encounter procedure Cindy Lopes CNP Work Phone: [facility] Work Phone: Start: 09-09-2016 Checked In Not Seen Noemi wallis Other [facility] Start: 09-09-2016 Culture bct isol&prs mptv id isolate ea urine Cindy [facility] Start: 09-09-2016 Office outpatient vi sit 15 minutes Cindy Lopes Other [facility] Start: 09-09-2016 End: 09-09-2016 Patient encounter procedure Cindy Walkerkadi QUEEN Work Phone: [facility] Work Phone: Start: 08-10-2016 Behavioral Health Verona Hobbs ox Other [facility] Start: 08-10-2016 1 25 dihydroxy inclu karina fractions if performed Cindy [facility] Start: 08-10-2016 Assay of pyridoxal phosphate [facility] Start: 08-10-2016 Assay of thiamine-vi tamin b-1 Cindy [facility] Start: 08-10-2016 Ct maxillofacial w/o contrast material Cindy [facility] Start: 08-10-2016 Office outpatient vi sit 15 minutes Cindy Lopes Other [facility] Start: 08-10-2016 End: 08-10-2016 Patient encounter procedure Conversion Provider Work Phone: [facility] Work Phone: Start: 11-02-2015 Office outpatient vi sit 15 minutes Noemi Givens Other [facility] Start: 11-02-2015 End: 11-02-2015 Patient encounter procedure Cindy Walkerkadi QUEEN Work Phone: [facility] Work Phone: Start: 10-10-2015 End: 03-17-2018 Patient encounter status Cindy Walkerkadi PARI MUTUEL TICKET CASHIER - NITROGEN OPERATOR Work Phone: [facility] Start: 10-02-2015 Behavioral Health Jessica Candelaria ch Other [facility] Start: 10-02-2015 Comprehensive metabo lic panel Cindy Lopes [facility] Start: 10-02-2015 Office outpatient vi sit 40 minutes Tara Aniket Other [facility] Start: 10-02-2015 End: 10-02-2015 Patient encounter procedure Cindy Lopes CNP Work Phone: [facility] Work Phone: Start: 07-16-2015 Office outpatient vi sit 15 minutes Noemi Givens Other [facility] Start: 07-16-2015 End: 07-16-2015 Patient encounter procedure Cindy Lopes CNP Work Phone: [facility] Work Phone: Start: 05-09-2015 Mammogram, screening Cindy Lopes [facility] Start: 05-09-2015 Office outpatient vi sit 15 minutes Tara Aniket Other [facility] Start: 05-09-2015 End: 05-09-2015 Patient encounter procedure Conversion Provider Work Phone: [facility] Work Phone: Start: 01-17-2015 Dental Anvita Gt Other [facility] Start: 01-08-2015 End: 01-08-2015 Patient encounter procedure Cindy Lopes CNP Work Phone: [facility] Work Phone: Start: 01-08-2015 Checked In Not Seen Marcial ji Other [facility] Start: 01-08-2015 Office outpatient vi sit 15 minutes Nitin Lawrence Other [facility] Start: 12-27-2014 Behavioral Health Gracy Gibson Other [facility] Start: 12-27-2014 Dental Anvita Gt Other [facility] Start: 12-19-2014 Office outpatient vi sit 15 minutes Noemimargarito Givens Other [facility] Start: 12-19-2014 End: 12-19-2014 Patient encounter procedure Cindy Lopes CNP Work Phone: [facility] Work Phone: Start: 11-06-2014 End: 11-06-2014 Patient encounter procedure Cindy Lopes CNP Work Phone: [facility] Work Phone: Start: 11-06-2014 Substance Abuse Ekta Lilly Other [facility] Start: 11-06-2014 Culture bacterial quanttative colony count [facility] Start: 11-06-2014 Office outpatient vi sit 25 minutes Tara Aniket Other [facility] Start: 10-30-2014 End: 10-30-2014 Patient encounter procedure Cindy Lopes CNP Work Phone: [facility] Work Phone: Start: 10-30-2014 Behavioral Health Ekta Perez do Other [facility] Start: 10-30-2014 Mammogram, screening Cindyheriberto [facility] Start: 10-30-2014 Office outpatient vi sit 25 minutes Tara Aniket Other [facility] Start: 10-19-2014 End: 10-19-2014 Patient encounter procedure Cindy Lopes CNP Work Phone: [facility] Work Phone: Start: 10-19-2014 25 hydroxy includes fractions if performed Cindy Lopes [facility] Start: 10-19-2014 Assay of thyroxine total Cindy [facility] Start: 10-19-2014 Blood count complete auto&auto difrntl wbc Cindy Loeps [facility] Start: 10-19-2014 Office outpatient ne w 20 minutes Noemi Givens Other [facility] Start: 10-18-2014 Checked In Not Seen Noemi wallis Other [facility] Procedures Date Procedure Procedure Detail Performing Clinician Start: 12-15-2024 CT of pelvis without contrast Dr. Mayra Cortez MD Work Phone: Start: 07-28-2023 SARS-CoV-2, Influenz a & RSV (PCR) Start: 04-05-2023 CT of chest without contrast NICK Nesbitt Work Phone: Start: 04-05-2023 Measurement of respi ratory function PARI MUTUEL TICKET CASHIERKadi Nesbitt Work Phone: Start: 10-14-2022 12 lead ECG Physician None Work Phone: Start: 09-30-2022 Cardiovascular stres s testing Physician None Work Phone: Start: 09-30-2022 CT of chest without contrast Physician None Work Phone: Start: 09-30-2022 Cardiovascular stres s test using pharmacologic stress agent Physician None Work Phone: Start: 09-21-2022 12 lead ECG PARI MUTUEL TICKET CASHIER Yudith a Delicia Work Phone: Start: 09-21-2022 Echocardiography PARI MUTUEL TICKET CASHIER T rik Delicia Work Phone: Start: 03-04-2021 Most recent diastoli c blood pressure < 80 mm hg Noemi Givens NITROGEN OPERATOR Work Phone: Start: 03-04-2021 Most recent systolic blood pressure <130 mm hg Noemi Givens NITROGEN OPERATOR Work Phone: Start: 03-04-2021 Pt scrnd tobacco use rcvd tobacco cessation talk Noemi Givens NITROGEN OPERATOR Work Phone: Start: 03-04-2021 Therapeutic prophyla ctic/dx [...] 12-04-2020 Comprehensive metabo lic panel Shazia Bhatti PARI M[employer]EL TICKET CASHIER - NITROGEN OPERATOR Work Phone: Start: 12-04-2020 Lipid panel Shazia Kadi Gonzalez pat PARI MUTUEL TICKET CASHIER - NITROGEN OPERATOR Work Phone: Start: 11-26-2020 Antibody hiv-1&hiv-2 single result Shazia Bhatti CNP Work Phone: Start: 11-26-2020 Most recent diastoli c blood pressure < 80 mm hg Shazia Bhatti NITROGEN OPERATOR Work Phone: Start: 11-26-2020 Most recent systolic blood pressure <130 mm hg Shazia Bhatti CNP Work Phone: Start: 09-19-2020 Antibody hiv-1&hiv-2 single result Maty Love Work Phone: Start: 09-19-2020 Diast bp <80 mm hg Karyn Love Work Phone: Start: 09-19-2020 Hemoglobin glycosylated a1c Maty Love Work Phone: Start: 09-19-2020 Psychotherapy w/odette ent 30 minutes Mimi Dewitt Work Phone: Start: 09-19-2020 Syst bp lt 130 mm hg Me andrez Love Work Phone: Start: 09-07-2020 Current tobacco smoker Ro Austin Work Phone: Start: 09-07-2020 Pt tobacco screen rcvd tlk Ro Austin Work Phone: Start: 08-27-2020 Imm. administration COVID19 [employer] Work Phone: Start: 08-27-2020 SARS-CoV-2 vaccine, 0.5ml Panjofner Work Phone: Start: 03-05-2020 Current tobacco smoker Maty Love Work Phone: Start: 03-05-2020 Psychotherapy w/odette ent 30 minutes Mimi Murillomounika Work Phone: Start: 03-05-2020 Pt tobacco screen rcvd tlk Maty Love Work Phone: Start: 01-23-2020 Diast bp <80 mm hg Noemi Chon Work Phone: Start: 01-23-2020 Exc b9 lesion mrgn x cp sk tg t/a/l 0.5 cm/< Noemi Chon Work Phone: Start: 01-23-2020 Lidocaine 2% with Epinephrine INJ (Xylocaine W/Epi) Onemi Chon Work Phone: Start: 01-23-2020 Liquid Nitrogen Noemi clinton Work Phone: Start: 01-23-2020 Pt tobacco screen rcvd tlk Noemi Givens Work Phone: Start: 01-23-2020 Syst bp lt 130 mm hg Jackelin rosa Chon Work Phone: Start: 11-27-2019 Pt tobacco screen rcvd tlk Maty Love Work Phone: Start: 09-28-2019 allergy list reviewed M ovidiosa Love Start: 09-28-2019 Pt tobacco screen rcvd tlk Maty Love Work Phone: Start: 09-28-2019 Telehealth Pre-Visit Reviewed by provider Maty Love Start: 08-18-2019 Diast bp <80 mm hg Karyn Love Work Phone: Start: 08-18-2019 Hemoglobin glycosylated a1c Maty Love Work Phone: Start: 08-18-2019 Psychotherapy w/odette ent 30 minutes Mimi Esdras Work Phone: Start: 08-18-2019 Pt tobacco screen rcvd tlk Maty Love Work Phone: Start: 08-18-2019 Pt-focused hlth risk assmt score doc stnd instrm Maty Love Work Phone: Start: 08-18-2019 Syst bp lt 130 mm hg Me andrez Love Work Phone: Start: 07-13-2019 Ceftriaxone sodium injection Cindy Walkerkadi Work Phone: Start: 07-13-2019 Diast bp 80-89 mm hg Co nnie Oen Work Phone: Start: 07-13-2019 History of influenza vaccination Cindy Oen Start: 07-13-2019 Ketorolac tromethamine inj Cindy Oen Work Phone: Start: 07-13-2019 Lidocaine 1% INJ (Xylocaine) Cindy Oen Work Phone: Start: 07-13-2019 Syst bp lt 130 mm hg Co nnie Oen Work Phone: Start: 01-06-2019 ADJUSTMENT DISORDER WITH ANXIETY Cindy Oen Start: 01-06-2019 ANXIETY DISORDER NOS Co nnie Oen Start: 01-06-2019 Appendectomy Cindy Oen Start: 01-06-2019 Appendectomy Maty kwon Start: 01-06-2019 Cholecystectomy Cindy Oen Start: 01-06-2019 Cholecystectomy Maty Love Start: 01-06-2019 CHRONIC PAIN Cindy Oen Start: 01-06-2019 DEPRESSION Cindy Oen Start: 01-06-2019 FEMALE PELVIC PAIN Conn ie Oen Start: 01-06-2019 GENERALIZED ANXIETY DISORDER Cindy Oen Start: 01-06-2019 Hysterectomy Cindy Walkern Start: 01-06-2019 Lig/trnsxj flp tube abdl/vag appr uni/bi Maty Love Start: 01-06-2019 Ligation of fallopian tube Cindy Walkern Start: 01-06-2019 no recent change in medical history Cindy Walkern Start: 01-06-2019 Psychotherapy w/odette ent 30 minutes Mimi Dewitt Work Phone: Start: 01-06-2019 Tonsillectomy Cindy Walker n Start: 01-06-2019 Tonsillectomy primary/secondary Maty Love Start: 01-06-2019 Total abdominal hyst erect w/wo rmvl tube ovary Maty Love Start: 12-21-2018 Extraction erupted tooth/exr Ansybil Zazuetatogi Work Phone: Start: 11-24-2018 Intraoral periapical first Jovanna Quispe Work Phone: Start: 10-06-2018 previous hospitalizations Cindy Lopes Start: 10-06-2018 Psychotherapy w/odette ent 30 minutes Leilani Abarca Work Phone: Start: 09-26-2018 Blood occult fecal h gb deter ia qual feces 1-3 Cindy Lopes Work Phone: Start: 08-11-2018 Diast bp <80 mm hg Jeannette ie Moses Work Phone: Start: 08-11-2018 Syst bp lt 130 mm hg Co donny Walkerkadi Work Phone: Start: 07-22-2018 Ceftriaxone sodium injection Cindy Walkerkadi Work Phone: Start: 07-22-2018 Methylprednisolone 8 0 MG inj Cindy Lopes Work Phone: Start: 01-20-2018 PHQ9 Administered Lena e Aaronkadi Start: 01-20-2018 DIAST BP 80-89 MM HG Co nnie Aaronn Start: 01-20-2018 SYST BP GE 130 - 139MM HG Cindy Walkern Start: 01-12-2018 Colonoscopy w/biopsy single/multiple Cindy Walkern Start: 10-27-2017 GASTROENTEROLOGY REFERRAL Cindy Walkerkadi Start: 10-21-2017 Blood count complete auto&auto difrntl wbc Cindy Oen Start: 10-21-2017 Comprehensive metabo lic panel Cindy Oen Start: 10-21-2017 Lipid panel Cindy Oen Start: 10-21-2017 PHQ9 Administered Lena hood Oen Start: 10-21-2017 SBIRT Negative Cindy Beauchamp en Start: 02-16-2017 POTASSIUM MD CINDY [facility] Start: 02-16-2017 GASTROINTESTINAL CONKLIN EL BY DNA MD CINDY [facility] Start: 02-16-2017 URINE DRUG SCREEN LENA Hood [facility] Start: 02-16-2017 URINE WITH REFLEXED MICRO MD [facility] Start: 02-16-2017 X-ray exam of abdomen C MD [facility] Start: 02-15-2017 EKG 12-LEAD MD [facility] Start: 02-15-2017 ANION GAP MD [facility] Start: 02-15-2017 BASIC METABOLIC PANEL C MD [facility] Start: 02-15-2017 CBC WITH AUTO DIFFERENTIAL MD CINDY [facility] Start: 02-15-2017 ETHANOL MD [facility] Start: 02-15-2017 GLOMERULAR FILTRATIO N RATE, ESTIMATED MD [facility] Start: 02-15-2017 HEPATIC FUNCTION PANEL MD [facility] Start: 02-15-2017 LIPASE MD [facility] Start: 02-15-2017 OSMOLALITY MD CINDY [facility] Start: 02-15-2017 TROPONIN MD CINDY [facility] Start: 02-15-2017 VITAL SIGNS MD CINDY [facility] Start: 02-05-2017 DIAST BP >/= 90 MM HG C blanca Oen Start: 02-05-2017 Ketorolac tromethamine inj Cindy Oen Start: 02-05-2017 SYST BP >/= 140 MM HG C blanca Oen Start: 02-05-2017 Therapeutic prophyla ctic/dx injection subq/im Cindy Oen Start: 02-02-2017 URINE DRUG SCREEN LENA Hood [facility] Start: 02-02-2017 URINE RT REFLEX TO CULTURE MD CINDY [facility] Start: 02-02-2017 Ct abdomen & pelvis w/contrast material MD CINDY [facility] Start: 02-02-2017 Chest x-ray MD CINDY [facility] Start: 02-01-2017 EKG 12-LEAD MD CINDY [facility] Start: 02-01-2017 ANION GAP MD [facility] Start: 02-01-2017 BASIC METABOLIC PANEL C MD [facility] Start: 02-01-2017 BRAIN NATRIURETIC PEPTIDE MD CINDY [facility] Start: 02-01-2017 CBC WITH AUTO DIFFERENTIAL MD [facility] Start: 02-01-2017 ETHANOL MD CINDY [facility] Start: 02-01-2017 GLOMERULAR FILTRATIO N RATE, ESTIMATED MD [facility] Start: 02-01-2017 HEPATIC FUNCTION PANEL MD [facility] Start: 02-01-2017 LIPASE MD CINDY [facility] Start: 02-01-2017 MAGNESIUM MD CINDY [facility] Start: 02-01-2017 OSMOLALITY MD CINDY [facility] Start: 02-01-2017 TROPONIN MD [facility] Start: 02-01-2017 TSH WITHOUT REFLEX JEANNETTE MARTÍNEZ [facility] Start: 01-22-2017 Antibody borrelia burgdorferi lyme [...] CBC WITH AUTO DIFFERENTIAL MD CINDY 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 any area upw/15 Cindy Oen Start: 11-02-2016 Psychotherapy w/odette ent 30 minutes Cindy Oen Start: 10-19-2016 Assay of thyroid stimulating hormone tsh Cindy Oen Start: 10-19-2016 Blood count complete auto&auto difrntl wbc Cindy Oen Start: 10-19-2016 Collection venous bl ood venipuncture [...] isol&prs mptv id isolate ea urine Cindy Oen Start: 08-11-2016 1 25 dihydroxy inclu karina fractions if performed Cindy Oen Start: 08-11-2016 Assay of pyridoxal phosphate Cindy Oen Start: 08-11-2016 Assay of thiamine-vi tamin b-1 Cindy Oen Start: 08-11-2016 Cyanocobalamin vitamin b-12 Cindy Oen Start: 08-10-2016 Ct maxillofacial w/o contrast material Cindy Oen Start: 08-10-2016 PHQ9 Administered Lena e Oen Start: 08-10-2016 Psychotherapy w/odette ent [...] w/le ast 12 lds i&r only Cindy Oen Start: 10-02-2015 Obstetrics & Gynecology Cindy Oen Start: 10-02-2015 PHQ9 Administered Lena e Oen Start: 10-02-2015 Psychotherapy w/odette ent 30 minutes Cindy Oen Start: 10-02-2015 Results from PAP test C onsanty Walkerkadi Start: 07-16-2015 HIV Refused Cindy Oen Start: 07-16-2015 Ceftriaxone sodium injection Cindy Oen Start: 05-09-2015 Mammogram, screening Co donny Lopes Start: 05-09-2015 Need PAP scheduled Conn heriberto Oen Start: 05-09-2015 Smoking cessation education Cindy Oen Start: 01-17-2015 Currently sees dental C angelaralphmanasa Lopes Start: 01-17-2015 HIV SCREENING REFUSE D* in house Cindy Oen Start: 01-08-2015 Collection venous bl ood venipuncture Cindy Oen Start: 01-08-2015 HIV Refused Cindy Oen Start: 12-27-2014 Behavioral Health Coordination of Care Cindy Oen Start: 12-27-2014 Psychotherapy w/odette ent 30 minutes Cindy Oen Start: 12-16-2014 Rheumatology adult referral Cindy Oen Start: 11-06-2014 Behavioral Health Coordination of Care Cindy Walkerkadi Start: 11-06-2014 Coordination of Care - Clinical Pharmacy in room OR CONSULTED Cindy Walkerkadi Start: 11-06-2014 Culture bacterial quanttative colony count urine Cindy Walkerkadi Start: 11-06-2014 Psychotherapy w/odette ent 30 minutes Cindy Walkerkadi Start: 11-06-2014 SBIRT- Pre-Screening *POSITIVE* Referred to Provider Cindy Walkerkadi Start: 11-06-2014 SBIRT: Brief Treatment Cindy Walkerkadi Start: 11-06-2014 Screening, Brief Intervention, Referral and Treatment (Indicate category below) Cindy Walkerkadi Start: 11-06-2014 Smoking cessation education Cindy Oekadi Start: 11-06-2014 Urine Drug Screen-9 Panel Cindy Oekadi Start: 11-06-2014 Urnls dip stick/tabl et reagent auto microscopy Cindy Walkerkadi Start: 11-06-2014 Urnls dip stick/tabl et rgnt non-auto w/o micrscp Cindy Oekadi Start: 10-30-2014 Behavioral Health Coordination of Care Cindy Moses Start: 10-30-2014 Blood occult peroxid ase actv qual feces 1 deter Cindy Oekadi Start: 10-30-2014 Mammogram, screening Co donny Walkerkadi Start: 10-30-2014 Psychotherapy w/odette ent 30 minutes Cindy Oekadi Start: 10-30-2014 Smoking cessation education Cindy Oekadi Start: 10-30-2014 Urine Drug Screen-9 Panel Cindy Walkerkadi Start: 10-19-2014 25 hydroxy includes fractions if performed Cindy Oekadi Start: 10-19-2014 Antinuclear antibodies glenn Cindy Oekadi Start: 10-19-2014 Assay of thyroid stimulating hormone tsh Cindy Aaronkadi Start: 10-19-2014 Assay of thyroxine total Cindy Oekadi Start: 10-19-2014 Blood count complete auto&auto difrntl wbc Cindy Oekadi Start: 10-19-2014 Collection venous bl ood venipuncture Cindy Lopes Start: 10-19-2014 Comprehensive metabo lic panel Cindy Oekadi Start: 10-19-2014 Cyanocobalamin vitamin b-12 Cindy Oekadi Start: 10-19-2014 Lipid panel Cindy Oekadi Start: 10-19-2014 Sedimentation rate r bc non-automated Cindy Aaronkadi Bacteria identificat ion test [employer] Bethany Nesbitt Work Phone: Urine culture [facility] [employer] Work Phone: NEGATED: Highlighted row has not occurred!Start: 07-13-2019 previous hospitalizations Cindy Lopes NEGATED: Highlighted row has not occurred!Start: 01-06-2019 CHRONIC FATIGUE SYNDROME Cindy Lopes Plan of Treatment Date Care Activity Detail Author Start: 12-15-2024 [facility] Start: 07-28-2023 [facility] Start: 10-14-2022 End: 10-14-2022 Disease process or condition education [facility] Work Phone: Start: 10-14-2022 Patient discharge [facility] Work Phone: Start: 10-14-2022 Scheduling [facility] [employer] Work Phone: Start: 10-14-2022 Oxygen therapy [facility] Work Phone: Start: 10-14-2022 Peripheral pulse taking [facility] Work Phone: Start: 10-14-2022 Positioning patient [facility] [employer] Work Phone: Start: 10-14-2022 End: 10-14-2022 Provision of activity privileges [facility] [employer] Work Phone: Start: 10-14-2022 Smoking cessation education [facility] Work Phone: Start: 10-14-2022 Vital signs measurements [facility] Work Phone: Start: 10-14-2022 End: 10-14-2022 [facility] [employer] Work Phone: Start: 10-14-2022 Body height [facility] [employer] Work Phone: Start: 10-14-2022 Catheterization of vein [facility] [employer] Work Phone: Start: 10-14-2022 Evaluation for signs and symptoms of physical health problems [facility] Work Phone: Start: 10-14-2022 Laboratory data interpretation [facility] Work Phone: Start: 10-14-2022 Management of drug regimen [facility] Work Phone: Start: 10-14-2022 Measuring intake and output [facility] Work Phone: Start: 10-14-2022 Notification of physician [facility] Work Phone: Start: 10-14-2022 Oxygen therapy [facility] Work Phone: Start: 10-14-2022 Vital signs measurements [facility] Work Phone: Start: 10-14-2022 [facility] Work Phone: Start: 10-14-2022 Peripheral pulse taking [facility] Work Phone: Start: 10-14-2022 Cath plmt l hrt & arts w/njx & angio img s&i L HRT ARTERY/VENTRICLE ANGIO [facility] Work Phone: Start: 10-14-2022 Ecg routine ecg w/least 12 lds trcg only w/o i&r ELECTROCARDIOGRAM TRACING [facility] Work Phone: Start: 10-14-2022 Cardiac catheterization [facility] Work Phone: Start: 09-01-2022 [facility] Work Phone: Start: 08-13-2022 [facility] Work Phone: Start: 07-28-2022 [facility] Work Phone: Start: 02-19-2021 Influenza vaccination Flu vaccine (Season Ended) [facility] Work Phone: Start: 02-05-2021 FQHC visit, estab pt Medical Established Patient [facility] Work Phone: Start: 01-21-2021 CBC W Auto Differential panel - Blood [facility] Start: 10-19-2020 US Echo 2D (42774) [facility] Work Phone: Start: 10-07-2020 CBC W Auto Differential panel - Blood [facility] Start: 10-07-2020 Comprehensive metabolic 2000 panel - Serum or Plasma Comprehensive Metabolic Panel (CP) [facility] Start: 10-07-2020 Lipid panel Lipid Panel (LIPR) [facility] Start: 09-14-2020 SARS-CoV-2, SUKHWINDER [facility] Work Phone: Start: 08-03-2019 Medical Established Patient [facility] Work Phone: Start: 01-05-2019 Medical Established Patient [facility] Work Phone: Start: 12-21-2018 Dr.Gene Lin [facility] Work Phone: Start: 12-12-2018 [facility] Work Phone: Comment on above: Note: Please make a referral to:Home Her itage allergy shots Note: Please make a referral to: Dr. Lemons Start: 09-22-2018 FQHC visit, estab pt Established Patient [facility] Work Phone: Start: 09-13-2018 End: 09-09-2018 Stool Kit [place],In [facility] Start: 09-08-2018 FQ visit, estab pt Established Patient Hieu [facility] Work Phone: Start: 08-13-2018 End: 09-09-2018 Blood occult fecal hgb deter ia qual feces 1-3 Stool Kit [place],In [facility] Work Phone: Start: 08-11-[address] [facility] Work Phone: Comment on above: Note: Please make a referral to: home he alth for RN to give her her allegy shots once per week- too sick to get her injections Start: 07-22-2018 End: 07-23-2018 Ceftriaxone sodium injection Ceftriaxone 250mg [facility] Work Phone: Start: 07-22-2018 End: 02-02-2019 Methylprednisolone 80 MG inj Methylprednisolone Acetate 80 mg INJ (Depo-Medrol) [facility] Work Phone: Start: 02-15-2018 Creatinine measurement Creatinine monitoring [facility] Phone: Start: 02-15-2018 Potassium monitoring Potassium monitoring [facility] Phone: Start: 01-10-2008 Screening for malignant neoplasm of breast Breast cancer screen [facility] Phone: Start: 01-10-2008 Screening for malignant neoplasm of colon Colon cancer screen colonoscopy [facility] Phone: Start: 01-10-2008 Shingles Vaccine (1 of 2) Shingles Vaccine (1 of 2) [employer] Work Phone: Start: 1998 Lipid panel Lipid screen [facility] Phone: Start: 1979 Screening for malignant neoplasm of cervix Cervical cancer screen [facility] Phone: Start: 1977 DTaP/Tdap/Td vaccine (1 - Tdap) DTaP/Tdap/Td vaccine (1 - Tdap) [facility] Phone: Start: 1973 HIV screening HIV screen [facility] Phone: Start: 1970 COVID-19 Vaccine (1) COVID-19 Vaccine (1) [facility] Phone: Start: 1960 Hepatitis C screening Hepatitis C screen [facility] Phone: Bacteria identified in Genital specimen by Aerobe culture [facility] Work Phone: Bacteria identified in Urine by Culture [facility] Work Phone: Basic metabolic 2000 panel - Serum or Plasma [facility] Work Phone: Patient Education [facility] Work Phone: Patient referral [facility] Work Phone: End: 12-04-2020 Vitamin B1 Vitamin B1 Lab Routine Once for 1 Occurrences starting 12/04/2020 until 12/04/2020 [facility] Work Phone: Comment on above: Once for 1 Occurrences starting 12/05/19 21 until 12/04/2020 Vitamin B1 Vitamin B1 Lab R outine 12/04/2020 11:13 AM EDT [facility] Work Phone: Immunizations Immunization Date Immunization Notes Care Provider Fa tressa 08-27-2020 [employer] COVID 19 Vaccine; Translations: [dulce maria] [facility] Work Phone: Comment on above: Note: Patient tolera annmarie well. No signs or symptoms of adverse reactions. Patient waited in facility for 15 minutes. given by nikolas 07-13-2019 influenza, injectabl e, quadrivalent, preservative free [facility] Work Phone: 07-13-2019 Ea.Addnl.Imm.Admin.o [place] 16 [address] [facility] Work Phone: 07-13-2019 Fluarix Quadrivalent 0.5 ML IM ANAHY; Translations: [Fluarix Quadrivalent 0.5 ML IM ANAHY] [facility] Work Phone: Comment on above: Patient tolerated th erapy well. No signs or symptoms of adverse reactions. 07-13-2019 Ea.Addnl.Imm.Admin.o [place] [address] (Rendering physcian modifier) [facility] Work Phone: 10-22-2017 pneumococcal conjuga te vaccine, 13 valent [facility] 10-22-2017 tetanus toxoid, redu armando diphtheria toxoid, and acellular pertussis vaccine, adsorbed; Translations: [Tdap] [facility] Comment on above: Note: Tdap 10-22-2017 pneumococcal conjuga te vaccine, 7 valent Cindy Oen [facility] Work Phone: Comment on above: Note: PCV 10-22-2017 pneumococcal vaccine , unspecified formulation Cindy Lopes [facility] Work Phone: [facility] Work Phone: Comment on above: Note: PCV 10-21-2017 pneumococcal conjuga te vaccine, 13 valent; Translations: [PNEUMOCOCCAL VACC 13 DIONICIO IM] Cindy [facility] 10-21-2017 tetanus toxoid, redu armando diphtheria toxoid, and acellular pertussis vaccine, adsorbed; Translations: [TDAP VACCINE 7 YRS/> IM] Cindy [facility] 10-21-2017 IMMUNIZATION ADMIN E ACH ADD; Translations: [IMMUNIZATION ADMIN EACH ADD] [facility] 10-21-2017 IMMUNIZATION ADMIN; Translations: [IMMUNIZATION ADMIN] [facility] 08-10-2016 pneumococcal polysaccharide vaccine, 23 valent; Translations: [PNEUMOCOCCAL VACC 23 DIONICIO IM] [facility] 08-10-2016 IMMUNIZATION ADMIN; Translations: [IMMUNIZATION ADMIN] [facility] 08-10-2016 pneumococcal conjuga te vaccine, 7 valent Cindy [facility] Work Phone: Comment on above: Note: PCV 08-10-2016 pneumococcal vaccine , unspecified formulation Cindy Lopes [facility] Work Phone: [facility] Work Phone: Comment on above: Note: PCV 05-09-2015 influenza, injectabl e, quadrivalent, preservative free; Translations: [FLU VAC NO PRSV 4 DIONICIO 3 YRS+] [facility] 05-09-2015 influenza, seasonal, injectable [facility] 05-09-2015 varicella zoster imm une globulin; Translations: [ZOSTAVAX (PF) 19,400UNIT/0.65 MISC] Cindy Lopes [facility] Work Phone: 05-09-2015 IMMUNIZATION ADMIN; Translations: [IMMUNIZATION ADMIN] Cindy Lopes [facility] 05-09-2015 influenza virus vacc ine, unspecified formulation Cindy Lopes [facility] Work Phone: [facility] Work Phone: Comment on above: Note: Influenza (Gabriel lt) 05-09-2015 influenza, high dose seasonal, preservative-free Cindy Lopes [facility] Work Phone: Comment on above: Note: Influenza (Gabriel lt) Payers Date Payer Category Payer Medicare [id number] 2022 Self-pay 2022 Medicaid [id number] 2016 Unknown [id number] 2015 Unknown [id number] 2014 Medicaid [id number] 2014 Unknown None [id number] 2014 Medicaid [id number] 1959 Private Health Insurance [id number] 1960 Unknown [id number] 75 1958 Unknown [id number] 98 1958 Unknown [id number] 51 1958 Unknown [id number] 51 1958 Unknown [id number] 51 Medicare AN[employer]M MEDICARE SENIOR [place] [id number] Unknown [id number] 39 Unknown [id number] 39 Unknown [id number] 39 Unknown [id number] 39 Unknown [id number] 39 Unknown [id number] Unknown [id number] 62 Unknown [id number] 62 Unknown [id number] 62 Unknown [id number] 62 Social History Date Type Detail Facility Start: seldom [facility] Start: 48oz per week [facility]: Current every day smoke r [facility] Assertion Disability (finding) [facility] Work Phone: Assertion Stress (finding) [facility] Work Phone: Assertion Single person (finding) [facility] Work Phone: Start: 06-21-2014 Assertion [facility] Work Phone: Assertion Smoker (finding) [facility] Work Phone: Assertion Gender identity finding (finding) [facility] Work Phone: Assertion Stopped drinking alcohol (finding) [facility] Work Phone: Assertion Finding of sexua l orientation (finding) [facility] Work Phone: Assertion [facility] user (finding[facility] Work Phone: Start: 07-28-2023 Tobacco smoking status Unknown if ever smoked [facility] Assertion Emotional stress (finding) [facility] Work Phone: Assertion Sexually active (finding) [facility] Work Phone: Assertion Cigarette smoker (finding) [facility] Work Phone: Assertion Exposure to poll ution (event) [facility] Work Phone: Assertion Problem situatio n relating to social and personal history (finding) [facility] Work Phone: Assertion [facility]ion Smoking monitori ng status (finding) [facility] Work Phone: Start: 02-15-2017 End: 09-10-2020 Tobacco smoking status NHIS Light tobacco smoker [facility] History of tobacco use [employer] Start: 02-15-2017 Tobacco use and exposure Never used [employer] Start: 02-15-2017 Alcohol intake Current drinke r of alcohol (finding) [employer] Work Phone: Start: 10-11-2015 Tobacco Comment e-cigs today a t 10-11-11 this am [employer] Work Phone: Start: 03-22-2015 Alcohol Comment couple tiems a year [employer] Work Phone: Start: 1960 Sex Assigned At Not on file [employer] Work Phone: Assertion Ex-smoker (finding) [facility] Work Phone: Start: 06-21-1972 History of tobacco use [facility] Work Phone: Start: 09-10-2020 None [facility] Start: 09-10-2020 1-2/Day [facility] Start: 1960 Sex Assigned At Female [facility] NEGATED: Highlighted row Assertion Illicit drug use (finding) [facility] Work Phone: NEGATED: Highlighted row Assertion Misuse of prescription only drugs (finding) [facility] Work Phone: NEGATED: Highlighted row Assertion [facility] Work Phone: NEGATED: Highlighted row Assertion Finding relating to drug misuse behavior (finding) [facility] Work Phone: NEGATED: Highlighted row Assertion Exposure to pollution (event) [facility] Work Phone: NEGATED: Highlighted row Assertion Tobacco user (finding) [facility] Work Phone: NEGATED: Highlighted row Assertion Interpersonal relationship finding (finding) [facility] Work Phone: NEGATED: Highlighted row Assertion Family problems (finding) [facility] Work Phone: NEGATED: Highlighted row Assertion Problem situation relating to social and personal history (finding) [facility] Work Phone: NEGATED: Highlighted row Assertion Current drinker of alcohol (finding) [facility] Work Phone: NEGATED: Highlighted row Assertion Emotional stress (finding) [facility] Work Phone: Mental Status Date Assessment Result Facility Cognitive function Cognitive fun ctioning was normal Cognitive function finding (finding) [facility] Work Phone: Clinical Notes 08-11-2018 to 12-15-2024 Note Date & Type Note Facility 12-15-2024 Radiology Diagnostic study note [facility] Imaging Services [address] [place], [place] [address] Pelvis without IV Contrast MR#: [id number] Acct: [id number] Name: WILBERT JOHNSON Rep #: [id number] : 1960 F 64 From: Fadumo Benson MD PCP: Dr. Mayra Cortez MD Status: R ER Study:Pelvis without IV Contrast Date of Exam : 12/15/24 Exam# [id number] Ordering Dr: Marshall Lin MD EXAM: CT Pelvis Without Intravenous Contrast CLINICAL INDICATION: FELL 2 WEEKS AGO. TAILBONE AND LEFT HIP PAIN TECHNIQUE: Axial computed tomography images of the pelvis without intravenous contrast. This CT exam was performed using one or more of the following dose reduction techniques: automated exposure control, adjustment of the mA and/or kV according to patient size, and/or use of iterative reconstruction technique. COMPARISON: No relevant prior studies available. FINDINGS: BOWEL: Unremarkable. No obstruction. No mucosal thickening. APPENDIX: No findings to suggest acute appendicitis. INTRAPERITONEAL SPACE: Unremarkable. No free air. No significant fluid collection. BLADDER: Unremarkable. No stones. REPRODUCTIVE: Unremarkable as visualized. BONES/JOINTS: Cortical irregularity and flattening of the coccyx could be a nondisplaced fracture. Multilevel endplate degenerative changes, facet arthropathy and disc disease of the visualized lumbar spine. No dislocation. SOFT TISSUES: Unremarkable. VASCULATURE: Unremarkable. No lower abdominal aortic aneurysm. LYMPH NODES: Unremarkable. No enlarged lymph nodes. CT/Pelvis without IV Contrast IMPRESSION: Cortical irregularity and flattening of the coccyx could be a nondisplaced fracture. Reading Location: [id number] CC: Dr. Sky Lin MD; Dr. Mayra Cortez MD ~ Chef French: Signed [facility] 08-08-2024 Note [facility] Medical Records Department [address] [place] [address] Discharge Summary 08/08/24 1054 MR#: [id number] Acct: [id number] Name: WILBERT JOHNSON Rep #: [id number] : 1960 64 From: Michael Raymundo DO PCP: Dr. Mayra Cortez MD Status:ADM BRYANNA Location: [facility] [id number] Providers Date of Admission: 08/07/24 Date of [...] Patient is a 64-year-old female who presented [facility] ED on 08/07/2024 with worsening weakness [...] cannula. Mildly decr (more content not included)... [facility] 08-07-2024 Note [facility] Medical Records Department [address] [place] [address] History Physical Exam 08/07/242128 MR#: [id number] Acct: [id number] Name: WILBERT JOHNSON Rep #: [id number] : 1960 64 From: Julio Blake MD PCP: Dr. Mayra Cortez MD Status:REG ER Location: ED HPI - General General Date of Admission: 08/07/24 Date of Service: 08/07/24 Chief Complaint: Generalized weakness HPI Narrative WILBERT JOHNSON, is a 64 F who presents to the emergency room with chief complaint of generalized weakness. Patient has significant past medical history of COPD with [id number] history of smoking for which she uses [...] for her influenza with anticipated discharge tomorrow. [facility] Medical History (Updated 08/07/24 @ 21:36 by [...] Delivery Method Room (more content not included)... [facility] 10-19-2022 Note [facility] Cardiac Operations Manager/Coordinator Patient: WILBERT JOHNSON [address] : 1960 [place] [address] Location: [address] [phone] [id number]atheterization/Angioplasty/Cardi oversion/ CardioMEMS or Pacemaker Procedure Jae Liriano DO [facility] Dictation ID#: [id number] DATE OF PROCEDURE: 10/14/2022. PREPROCEDURE DIAGNOSIS: See Hemodynamic Report. POSTPROCEDURE DIAGNOSIS: See Hemodynamic Report. PROCEDURE PERFORMED: Cardiac catheterization. PACKING HOUSE LABORER PERFORMING PROCEDURE: Jae Liriano D.O., F.AJennifer FAMILY PHYSICIAN: Bethany Nesbitt CNP. INDICATION FOR PROCEDURE: A very pleasant 62-year-old [...] lab. SITE: Right radial artery. CATHETER USED: 6-Guine[place] Raf catheter. COMPLICATIONS: None. ESTIMATED BLOOD LOSS: [...] cc: Jae Liriano DO, FACC; Bethany Nesbitt [facility] Dictated by: Jae Liriano DO, FACC on 10/14/22 1706 Transcribed by: Keturah Mathew on 10/14/22 1739 Report Signed by: Jae Liriano DO, FACC on 10/19/22 1203 < > [facility] 11-26-2020 Evaluation note Includes: Assessments for all patient encounters Findings Body mass index Medical New Patient with Shazia Bhatti BRET 11/26/2020 Dast - 10 Score was 0 11/26/2020 Medical New Patient with Shazia Bhatti NITROGEN OPERATOR 11/26/2020 J01.90 - Acute sinusitis, unspecified Medical New Patient with Shazia Bhatti NITROGEN OPERATOR 11/26/2020 Obesity due to excess calories Medical N ew Patient with Shazia Bhatti NITROGEN OPERATOR 11/26/2020 PHQ-9: total score was eight 11/26/2020 Medical New Patient with Shazia Bhatti NITROGEN OPERATOR 11/26/2020 Prediabetes Medical New Patient with Shazia Bhatti NITROGEN OPERATOR 11/26/2020 Dependence on nicotine in cigarettes - uncomplicated Established Patient with Mimi Hueve TERRAZZO WORKER 09/19/2020 Moderate recurrent major depression Established Patient with Mimi Hueve TERRAZZO WORKER 09/19/2020 Sleep disorder Established Patie nt with Mimi Hueve TERRAZZO WORKER 09/19/2020 Body mass index [BMI] 37.0-3 7.9, adult Medical Established Patient with Maty Love NITROGEN OPERATOR 09/19/2020 Chronic pain Medical Established Patient with Matycara Love NITROGEN OPERATOR 09/19/2020 Dependence on nicotine in cigarettes - uncomplicated Medical Established Patient with Maty Love NITROGEN OPERATOR 09/19/2020 Encounter for screening for diabetes mellitus Medical Established Patient with Maty Maag NITROGEN OPERATOR 09/19/2020 Fibromyalgia Medical Established Patient with Maty Maag NITROGEN OPERATOR 09/19/2020 Generalized anxiety disorder Medical Est ablished Patient with Matycara Love NITROGEN OPERATOR 09/19/2020 Moderate recurrent major depression Medical Established Patient with Matycara Love NITROGEN OPERATOR 09/19/2020 Sleep disorder Medical Established Patient with Matycara Love NITROGEN OPERATOR 09/19/2020 Exposure to a viral disease Telemedicine New Patient with Ro Austin NITROGEN OPERATOR 09/07/2020 Encounter for Immunization 1st COVID Vac cine with Xi Roberson PharmD 08/27/2020 Generalized anxiety disorder Telebeha vioral Health with Mimi Hueve TERRAZZO WORKER 03/05/2020 Moderate recurrent major depression Telebehavioral Health with Mimi Hueve TERRAZZO WORKER 03/05/2020 Nicotine dependence uncomplicated Telebehavioral Health with Mimi Hueve TERRAZZO WORKER 03/05/2020 Chronic sinusitis, unspecified Telemedic ine Establisted Patient with Maty Maag NITROGEN OPERATOR 03/05/2020 Magnesium deficiency Telemedicine Establ isted Patient with Maty Maag NITROGEN OPERATOR 03/05/2020 Nicotine dependence, unspecified, uncomplicated Telemedicine Establisted Patient with Maty Maag NITROGEN OPERATOR 03/05/2020 Vitamin D deficiency, unspecified Telemedicine Establisted Patient with Maty Love [facility] 03/05/2020 B07.9 - Viral wart, unspecified Medical Established Patient with Noemi Givens [facility] 01/23/2020 Epidermal inclusion cyst Medical Establi shed Patient with Noemi Givens [facility] 01/23/2020 L82.1 - Other seborrheic keratosis Medical Established Patient with Noemi Givens [facility] 01/23/2020 Obesity due to excess calories Medical E stablished Patient with Noemi Givens [facility] 01/23/2020 Z68.39 - Body mass index (BM I) 39.0-39.9, adult Medical Established Patient with Noemi Givens [facility] 01/23/2020 Bipolar disorder, current episode hypomanic Telemedicine with Maty [facility] 11/27/2019 Body mass index Telemedicine with [facility] 11/27/2019 Chronic sinusitis, unspecified Telemedic ine with [facility] 11/27/2019 Nicotine dependence, unspecified, uncomplicated [facility] Obesity due to excess calories Telemedic ine with Maty [facility] 11/27/2019 Fibromyalgia [facility] 09/28/2019 Generalized anxiety disorder Telemedicin e with [facility] 09/28/2019 Major depressive disorder, recurrent, moderate Telemedicine with Maty [facility] 09/28/2019 Nicotine dependence, cigaret leonel, uncomplicated Telemedicine with Maty [facility] 09/28/2019 Generalized anxiety disorder Establis hed Patient with Mimipaty Santiagoe [facility] 08/18/2019 Mild recurrent major depression Estab lished Patient with Mimi Hueve [facility] 08/18/2019 Nicotine dependence uncomplicated Established Patient with Mimi Hueve [facility] 08/18/2019 Allergy, unspecified, initia l encounter Medical [facility] Body mass index (BMI) 38.0-3 8.9, adult Medical Established Patient with Maty Love [facility] 08/18/2019 Chronic obstructive pulmonar y disease, unspecified Medical Established Patient with Maty Love [facility] 08/18/2019 Chronic pain syndrome Medical Establishe d Patient with Maty Love [facility] 08/18/2019 Diabetes Risk Test Score was five score 08/18/2019 Medical Established Patient with Maty Love [facility] 08/18/2019 Fibromyalgia Medical Established Patient with Maty Love NITROGEN OPERATOR 08/18/2019 Generalized anxiety disorder Medical Est ablished Patient with Maty Love NITROGEN OPERATOR 08/18/2019 Major depressive disorder, recurrent, moderate Medical Established Patient with Maty Love NITROGEN OPERATOR 08/18/2019 Nicotine dependence, unspecified, uncomplicated Medical Established Patient with aMty Love NITROGEN OPERATOR 08/18/2019 Obesity due to excess calories Medical E stablished Patient with Maty Love NITROGEN OPERATOR 08/18/2019 Prediabetes Medical Established Patient with Maty Love NITROGEN OPERATOR 08/18/2019 Sleep disorder, unspecified Medical Esta blished Patient with Maty Love NITROGEN OPERATOR 08/18/2019 Acute laryngopharyngitis Medical Establi shed Patient with Cindy Walkern NITROGEN OPERATOR 07/13/2019 Acute pansinusitis unspecified Medical E stablished Patient with Cindy Oen NITROGEN OPERATOR 07/13/2019 Body mass index Medical Established Patient with Cindy Oen NITROGEN OPERATOR 07/13/2019 Obesity due to excess calories Medical E stablished Patient with Cindy Oen NITROGEN OPERATOR 07/13/2019 Generalized anxiety disorder Establis hed Patient with Mimi Hueve TERRAZZO WORKER 01/06/2019 Moderate recurrent major depression Established Patient with Mimi Hueve TERRAZZO WORKER 01/06/2019 Anxiety disorder NOS Medical Established Patient with Cindy Oen NITROGEN OPERATOR 01/06/2019 Anxiety disorder of unknown (axis III) etiology Medical Established Patient with Cindy Oen NITROGEN OPERATOR 01/06/2019 Depression Medical Established Patient with Cindy Oen NITROGEN OPERATOR 01/06/2019 Generalized anxiety disorder Medical Est ablished Patient with Cindy Oen NITROGEN OPERATOR 01/06/2019 Adjustment disorder Established Patie nt with Leilani ESCOBAR-S 10/06/2018 Body mass index Medical Established Patient with Cindy Oen NITROGEN OPERATOR 10/06/2018 Dast - 10 Score was 0 10/06/2018 Medical Established Patient with Cindy Oen NITROGEN OPERATOR 10/06/2018 PHQ-9: total score was eight 10/06/2018 Medical Established Patient with Cindy Oen NITROGEN OPERATOR 10/06/2018 Viral gastroenteritis ([place] virus) Medical Established Patient with Cindy Oen NITROGEN OPERATOR 10/06/2018 Viral infection Medical Established Patient with Cindy Oen NITROGEN OPERATOR 10/06/2018 swelling in veneculla- seein g an ENT- trying to get shots for her allergies Medical Established Patient with Cindy Oen NITROGEN OPERATOR 08/11/2018 Allergic rhinitis Medical Established Patient with Cindy Oen NITROGEN OPERATOR 08/11/2018 Prehypertension Medical Established Patient with Cindy Oen NITROGEN OPERATOR 08/11/2018 Acute pharyngitis Medical Established Patient with Cindy Oen NITROGEN OPERATOR 07/22/2018 Assessment of cough Medical Established Patient with Cindy Oen NITROGEN OPERATOR 07/22/2018 Assessment of fever Medical Established Patient with Cindy Oen NITROGEN OPERATOR 07/22/2018 Bronchiolitis infectious Medical Establi shed Patient with Cindy Oen NITROGEN OPERATOR 07/22/2018 Upper respiratory infection Medical Esta blished Patient with Cindy Oen NITROGEN OPERATOR 07/22/2018 [facility] Work Phone: 1(647) 675-202104-01-2021 Evaluation note Includes: Assessments for all patient encounters Findings Encounter Date Dependence on nicotine in ci garettes - uncomplicated BH Established Patient with Mimi Hueve TERRAZZO WORKER 09/19/2020 Moderate recurrent major depression BH E stablished Patient with Mimi Hueve TERRAZZO WORKER 09/19/2020 Sleep disorder Established Patie nt with Mimi Jacke TERRAZZO WORKER 09/19/2020 Body mass index [BMI] 37.0-37.9, adult M edical Established Patient with Maty Maag NITROGEN OPERATOR 09/19/2020 Chronic pain Medical Established Patient with Maty Chandlerag NITROGEN OPERATOR 09/19/2020 Dependence on nicotine in ci garettes - uncomplicated Medical Established Patient with Maty Maag NITROGEN OPERATOR 09/19/2020 Encounter for screening for diabetes mellitus Medical Established Patient with Maty Maag NITROGEN OPERATOR 09/19/2020 Fibromyalgia Medical Established Patient with Maty Maag NITROGEN OPERATOR 09/19/2020 Generalized anxiety disorder Medical Est ablished Patient with Maty Maag NITROGEN OPERATOR 09/19/2020 Moderate recurrent major depression [facility] Established Patient with Maty Maag NITROGEN OPERATOR 09/19/2020 Sleep disorder Medical Established Patient with Maty Maag NITROGEN OPERATOR 09/19/2020 Exposure to a viral disease Telemedicine New Patient with Ro Austin NITROGEN OPERATOR 09/07/2020 Encounter for Immunization 1st COVID Vac cine with Xi Roberson PharmD 08/27/2020 Generalized anxiety disorder Telebeha vioral Health with Mimi SQUIRESW 03/05/2020 Moderate recurrent major depression T elebehavioral Health with Mimi Dewitt TERRAZZO WORKER 03/05/2020 Nicotine dependence uncomplicated BH Tel ebehavioral Health with Mimi Dewitt TERRAZZO WORKER 03/05/2020 Chronic sinusitis, unspecified Telemedic ine Establisted Patient with Maty Maag NITROGEN OPERATOR 03/05/2020 Magnesium deficiency Telemedicine Establ isted Patient with Maty Maag NITROGEN OPERATOR 03/05/2020 Nicotine dependence, unspeci fied, uncomplicated Telemedicine Establisted Patient with Maty Maag NITROGEN OPERATOR 03/05/2020 Vitamin D deficiency, unspecified Teleme dicine Establisted Patient with Maty Ma NITROGEN OPERATOR 03/05/2020 B07.9 - Viral wart, unspecified Medical Established Patient with Noemi Chon NITROGEN OPERATOR 01/23/2020 Epidermal inclusion cyst Medical Establi shed Patient with Noemi Chon NITROGEN OPERATOR 01/23/2020 L82.1 - Other seborrheic keratosis Medic al Established Patient with Noemi Chon NITROGEN OPERATOR 01/23/2020 Obesity due to excess calories Medical E stablished Patient with Noemi Chon [facility] 01/23/2020 Z68.39 - Body mass index (BM I) 39.0-39.9, adult Medical Established Patient with Noemi Givens NITROGEN OPERATOR 01/23/2020 Bipolar disorder, current ep isode hypomanic Telemedicine with Maty [facility] NITROGEN OPERATOR 11/27/2019 Body mass index Telemedicine with Maty Ivan C CAR UNLOADER HELPER 11/27/2019 Chronic sinusitis, unspecified Telemedicine with Maty [facility] 11/27/2019 Nicotine dependence, unspeci fied, uncomplicated Telemedicine with Maty Chandler NITROGEN OPERATOR 11/27/2019 Obesity due to excess calories Telemedicine with Maty [facility] NITROGEN OPERATOR 11/27/2019 Fibromyalgia Telemedicine with Maty Ivan C CAR UNLOADER HELPER 09/28/2019 Generalized anxiety disorder Telemedicine with Deandre Love NITROGEN OPERATOR 09/28/2019 Major depressive disorder, r ecurrent, moderate Telemedicine with Maty [facility] NITROGEN OPERATOR 09/28/2019 Nicotine dependence, cigaret leonel, uncomplicated Telemedicine with Maty Ma NITROGEN OPERATOR 09/28/2019 Generalized anxiety disorder BH Establis hed Patient with Mimi Hupetere TERRAZZO WORKER 08/18/2019 Mild recurrent major depression BH Estab lished Patient with Miim Hueve TERRAZZO WORKER 08/18/2019 Nicotine dependence uncomplicated BH Est ablished Patient with Mimi Hueve TERRAZZO WORKER 08/18/2019 Allergy, unspecified, initial encounter Medical Established Patient with Maty Maag NITROGEN OPERATOR 08/18/2019 Body mass index (BMI) 38.0-38.9, adult M edical Established Patient with Maty Ma NITROGEN OPERATOR 08/18/2019 Chronic obstructive pulmonar y disease, unspecified Medical Established Patient with Maty Love NITROGEN OPERATOR 08/18/2019 Chronic pain syndrome Medical Establishe d Patient with Maty Love NITROGEN OPERATOR 08/18/2019 Diabetes Risk Test Score was five score 08/18/2019 Medical Established Patient with Maty Love NITROGEN OPERATOR 08/18/2019 Fibromyalgia Medical Established Patient with Maty Love NITROGEN OPERATOR 08/18/2019 Generalized anxiety disorder Medical Est ablished Patient with Maty Love NITROGEN OPERATOR 08/18/2019 Major depressive disorder, r ecurrent, moderate Medical Established Patient with Maty Love NITROGEN OPERATOR 08/18/2019 Nicotine dependence, unspeci fied, uncomplicated Medical Established Patient with Maty Love NITROGEN OPERATOR 08/18/2019 Obesity due to excess calories Medical E stablished Patient with Maty Love NITROGEN OPERATOR 08/18/2019 Prediabetes Medical Established Patient with Maty Love NITROGEN OPERATOR 08/18/2019 Sleep disorder, unspecified Medical Esta blished Patient with Maty Love NITROGEN OPERATOR 08/18/2019 Acute laryngopharyngitis Medical Establi shed Patient with Cindy Oen NITROGEN OPERATOR 07/13/2019 Acute pansinusitis unspecified Medical E stablished Patient with Cindy Oen NITROGEN OPERATOR 07/13/2019 Body mass index Medical Established Patient with Cindy Oen NITROGEN OPERATOR 07/13/2019 Obesity due to excess calories Medical E stablished Patient with Cindy Oen NITROGEN OPERATOR 07/13/2019 Generalized anxiety disorder BH Establis hed Patient with Mimi Hueve TERRAZZO WORKER 01/06/2019 Moderate recurrent major depression BH E stablished Patient with Mimi Hueve TERRAZZO WORKER 01/06/2019 Anxiety disorder NOS Medical Established Patient with Cindy Oen NITROGEN OPERATOR 01/06/2019 Anxiety disorder of unknown (axis III) etiology Medical Established Patient with Cindy Oen NITROGEN OPERATOR 01/06/2019 Depression Medical Established Patient with Cindy Oen NITROGEN OPERATOR 01/06/2019 Generalized anxiety disorder Medical Est ablished Patient with Cindy Oen NITROGEN OPERATOR 01/06/2019 Adjustment disorder BH Established Patie nt with Leilani ESCOBAR-S 10/06/2018 Body mass index Medical Established Patient with Cindy Oen NITROGEN OPERATOR 10/06/2018 Dast - 10 Score was 0 10/06/2018 Medical Established Patient with Cindy Oen NITROGEN OPERATOR 10/06/2018 PHQ-9: total score was eight 10/06/2018 M edical Established Patient with Cindy Oen NITROGEN OPERATOR 10/06/2018 Viral gastroenteritis ([place] virus) Me dical Established Patient with Cindy Oen NITROGEN OPERATOR 10/06/2018 Viral infection Medical Established Patient with Cindy Oen NITROGEN OPERATOR 10/06/2018 swelling in ven[place]- seein g an ENT- trying to get shots for her allergies Medical Established Patient with Cindy Oen NITROGEN OPERATOR 08/11/2018 Allergic rhinitis Medical Established Patient with Cindy Oen NITROGEN OPERATOR 08/11/2018 Prehypertension Medical Established Patient with Cindy Oen NITROGEN OPERATOR 08/11/2018 Acute pharyngitis Medical Established Patient with Cindy Oen NITROGEN OPERATOR 07/22/2018 Assessment of cough Medical Established Patient with Cindy Oen NITROGEN OPERATOR 07/22/2018 Assessment of fever Medical Established Patient with Cindy Oen NITROGEN OPERATOR 07/22/2018 Bronchiolitis infectious Medical Establi shed Patient with Cindy Oen NITROGEN OPERATOR 07/22/2018 Upper respiratory infection Medical Esta blished Patient with Cindy Oen NITROGEN OPERATOR 07/22/2018 [facility] Work Phone: 1(402) 497-146004-01-2021 History general Narrative - Reported Includes: Medical History in patient's chart Description Last Updated History of hypertension 09/19/2020 Allergy list reviewed 09/28/2019 Telehealth Pre-Visit Reviewed by mario stein 09/28/2019 A recent immunization for flu 07/13/2019 No previous hospitalizations 07/13/2019 History of adjustment disorder with anxi ety 01/06/2019 History of anxiety disorder NOS 01/07/20 19 History of depression 01/06/2019 History of female pelvic pain 01/06/2019 History of generalized anxiety disorder 01/06/2019 No history of chronic fatigue syndrome 0 01/06/2019 No recent change in medical history 12/19 History of chronic pain 01/06/2019 [facility] Work Phone: 1(636) 137-359102-21-2019 Evaluation note Includes: Assessments for all patient encounters Findings Encounter Date swelling in veneculla- seein g an ENT- trying to get shots for her allergies Established Patient with Cindy Oen NITROGEN OPERATOR 08/11/2018 Allergic rhinitis Established Patient with Cindy Oen NITROGEN OPERATOR 08/11/2018 Prehypertension Established Patient with Cindy Oen NITROGEN OPERATOR 08/11/2018 Acute pharyngitis Established Patient with Cindy Oen NITROGEN OPERATOR 07/22/2018 Assessment of cough Established Patient with Cindy Walkern NITROGEN OPERATOR 07/22/2018 Assessment of fever Established Patient with Cindy Walkern NITROGEN OPERATOR 07/22/2018 Bronchiolitis infectious Established Pat ient with Cindy Walkern NITROGEN OPERATOR 07/22/2018 Upper respiratory infection Established Patient with Cindy Lopes NITROGEN OPERATOR 07/22/2018 [facility] Work Phone: Evaluation note Includes: Assessments for all patient encounters Findings Encounter Date Acute sinusitis Open Access - Establ ished with Noemi Chon NITROGEN OPERATOR 01/24/2021 Obesity due to excess calories Open Acce ss - Established with Noemi Chon NITROGEN OPERATOR 01/24/2021 Z68.37 - Body mass index [BM I] 37.0-37.9, adult Open Access - Established with Nomei Givens NITROGEN OPERATOR 01/24/2021 Body mass index Medical New Patient with Shazia Bhatti NITROGEN OPERATOR 11/26/2020 Dast - 10 Score was 0 11/26/2020 Medical New Patient with Shazia Sewellrad NITROGEN OPERATOR 11/26/2020 J01.90 - Acute sinusitis, unspecified Me dical New Patient with Shaziatea Sewellrad NITROGEN OPERATOR 11/26/2020 Obesity due to excess calories Medical N ew Patient with Shaziatea Sewellrad NITROGEN OPERATOR 11/26/2020 PHQ-9: total score was eight 11/26/2020 M edical New Patient with Shaziatea Sewellrad NITROGEN OPERATOR 11/26/2020 Prediabetes Medical New Patient with Shaziatea Sewellrad NITROGEN OPERATOR 11/26/2020 Dependence on nicotine in ci garettes - uncomplicated BH Established Patient with Mimi Hupetere TERRAZZO WORKER 09/19/2020 Moderate recurrent major depression BH E stablished Patient with Mimi Hueve TERRAZZO WORKER 09/19/2020 Sleep disorder BH Established Patie nt with Mimi Hupetere TERRAZZO WORKER 09/19/2020 Body mass index [BMI] 37.0-37.9, adult M edical Established Patient with Maty Love NITROGEN OPERATOR 09/19/2020 Chronic pain Medical Established Patient with Maty Love NITROGEN OPERATOR 09/19/2020 Dependence on nicotine in ci garettes - uncomplicated Medical Established Patient with Maty Love NITROGEN OPERATOR 09/19/2020 Encounter for screening for diabetes mellitus Medical Established Patient with Maty Ivan NITROGEN OPERATOR 09/19/2020 Fibromyalgia Medical Established Patient with Matycara Love NITROGEN OPERATOR 09/19/2020 Generalized anxiety disorder Medical Est ablished Patient with Maty Love NITROGEN OPERATOR 09/19/2020 Moderate recurrent major depression [place] Established Patient with Maty Love NITROGEN OPERATOR 09/19/2020 Sleep disorder Medical Established Patient with Maty Love NITROGEN OPERATOR 09/19/2020 Exposure to a viral disease Telemedicine New Patient with Ro Austin NITROGEN OPERATOR 09/07/2020 Encounter for Immunization 1st COVID Vac cine with Xi Roberson PharmD 08/27/2020 Generalized anxiety disorder Telebeha vioral Health with Mimipaty Dewitt TERRAZZO WORKER 03/05/2020 Moderate recurrent major depression T elebehavioral Health with Mimipaty Santiagoe TERRAZZO WORKER 03/05/2020 Nicotine dependence uncomplicated Tel ebehavioral Health with Mimipaty Santiagoe [facility] 03/05/2020 Chronic sinusitis, unspecified Telemedic ine Establisted Patient with Maty Love NITROGEN OPERATOR 03/05/2020 Magnesium deficiency Telemedicine Establ isted Patient with Maty Love NITROGEN OPERATOR 03/05/2020 Nicotine dependence, unspeci fied, uncomplicated Telemedicine Establisted Patient with Maty Love NITROGEN OPERATOR 03/05/2020 Vitamin D deficiency, unspecified Teleme dicine Establisted Patient with Maty Love NITROGEN OPERATOR 03/05/2020 B07.9 - Viral wart, unspecified Medical Established Patient with Noemi Chon NITROGEN OPERATOR 01/23/2020 Epidermal inclusion cyst Medical Establi shed Patient with Noemimargarito Givens [facility] 01/23/2020 L82.1 - Other seborrheic keratosis Medic al Established Patient with Noemi Chon NITROGEN OPERATOR 01/23/2020 Obesity due to excess calories Medical E stablished Patient with Noemi Chon NITROGEN OPERATOR 01/23/2020 Z68.39 - Body mass index (BM I) 39.0-39.9, adult Medical Established Patient with Noemi Chon NITROGEN OPERATOR 01/23/2020 Bipolar disorder, current ep isode hypomanic Telemedicine with Maty Chandlerdoyle NITROGEN OPERATOR 11/27/2019 Body mass index Telemedicine with Maty Ivan Gonzalez CAR UNLOADER HELPER 11/27/2019 Chronic sinusitis, unspecified Telemedicine with Maty Chandlerdoyle NITROGEN OPERATOR 11/27/2019 Nicotine dependence, unspeci fied, uncomplicated Telemedicine with Mtay Chandlerdoyle NITROGEN OPERATOR 11/27/2019 Obesity due to excess calories Telemedicine with Maty Ivan NITROGEN OPERATOR 11/27/2019 Fibromyalgia Telemedicine with Maty Maag C CAR UNLOADER HELPER 09/28/2019 Generalized anxiety disorder Telemedicine with Deandre Love NITROGEN OPERATOR 09/28/2019 Major depressive disorder, r ecurrent, moderate Telemedicine with Maty Love NITROGEN OPERATOR 09/28/2019 Nicotine dependence, cigaret leonel, uncomplicated Telemedicine with Maty Love NITROGEN OPERATOR 09/28/2019 Generalized anxiety disorder BH Establis hed Patient with Mimi Hueve TERRAZZO WORKER 08/18/2019 Mild recurrent major depression BH Estab lished Patient with Mimi Hueve TERRAZZO WORKER 08/18/2019 Nicotine dependence uncomplicated BH Est ablished Patient with Mimi Hueve TERRAZZO WORKER 08/18/2019 Allergy, unspecified, initial encounter Medical Established Patient with Maty Love NITROGEN OPERATOR 08/18/2019 Body mass index (BMI) 38.0-38.9, adult M edical Established Patient with Maty Love NITROGEN OPERATOR 08/18/2019 Chronic obstructive pulmonar y disease, unspecified Medical Established Patient with Maty Love NITROGEN OPERATOR 08/18/2019 Chronic pain syndrome Medical Establishe d Patient with Maty Love NITROGEN OPERATOR 08/18/2019 Diabetes Risk Test Score was five score 08/18/2019 Medical Established Patient with Maty Maag NITROGEN OPERATOR 08/18/2019 Fibromyalgia Medical Established Patient with Maty Maag NITROGEN OPERATOR 08/18/2019 Generalized anxiety disorder Medical Est ablished Patient with Maty Maag NITROGEN OPERATOR 08/18/2019 Major depressive disorder, r ecurrent, moderate Medical Established Patient with Maty Maag NITROGEN OPERATOR 08/18/2019 Nicotine dependence, unspeci fied, uncomplicated Medical Established Patient with Maty Maag NITROGEN OPERATOR 08/18/2019 Obesity due to excess calories Medical E stablished Patient with Maty Maag NITROGEN OPERATOR 08/18/2019 Prediabetes Medical Established Patient with Maty Maag NITROGEN OPERATOR 08/18/2019 Sleep disorder, unspecified Medical Esta blished Patient with Maty Maag NITROGEN OPERATOR 08/18/2019 Acute laryngopharyngitis Medical Establi shed Patient with Cindy Oen NITROGEN OPERATOR 07/13/2019 Acute pansinusitis unspecified Medical E stablished Patient with Cindy Oen NITROGEN OPERATOR 07/13/2019 Body mass index Medical Established Patient with Cindy Oen NITROGEN OPERATOR 07/13/2019 Obesity due to excess calories Medical E stablished Patient with Cindy Oen NITROGEN OPERATOR 07/13/2019 Generalized anxiety disorder BH Establis hed Patient with Mimi Hueve TERRAZZO WORKER 01/06/2019 Moderate recurrent major depression BH E stablished Patient with Mimi Hueve TERRAZZO WORKER 01/06/2019 Anxiety disorder NOS Medical Established Patient with Cindy Oen NITROGEN OPERATOR 01/06/2019 Anxiety disorder of unknown (axis III) etiology Medical Established Patient with Cindy Oen NITROGEN OPERATOR 01/06/2019 Depression Medical Established Patient with Cindy Oen NITROGEN OPERATOR 01/06/2019 Generalized anxiety disorder Medical Est ablished Patient with Cindy Oen NITROGEN OPERATOR 01/06/2019 Adjustment disorder BH Established Patie nt with Leilani Tevin ESCOBAR-S 10/06/2018 Body mass index Medical Established Patient with Cindy Oen NITROGEN OPERATOR 10/06/2018 Dast - 10 Score was 0 10/06/2018 Medical Established Patient with Cindy Oen NITROGEN OPERATOR 10/06/2018 PHQ-9: total score was eight 10/06/2018 M edical Established Patient with Cindy Oen NITROGEN OPERATOR 10/06/2018 Viral gastroenteritis (Fairplay virus) Me dical Established Patient with Cindy Oen NITROGEN OPERATOR 10/06/2018 Viral infection Medical Established Patient with Cindy Oen NITROGEN OPERATOR 10/06/2018 swelling in [place]- seein g an ENT- trying to get shots for her allergies Medical Established Patient with Cindy Oen NITROGEN OPERATOR 08/11/2018 Allergic rhinitis Medical Established Patient with Cindy Oen NITROGEN OPERATOR 08/11/2018 Prehypertension Medical Established Patient with Cindy Oen NITROGEN OPERATOR 08/11/2018 Acute pharyngitis Medical Established Patient with Cindy Oen NITROGEN OPERATOR 07/22/2018 Assessment of cough Medical Established Patient with Cindy Oen NITROGEN OPERATOR 07/22/2018 Assessment of fever Medical Established Patient with Cindy Oen NITROGEN OPERATOR 07/22/2018 Bronchiolitis infectious Medical Establi shed Patient with Cindy Oen NITROGEN OPERATOR 07/22/2018 Upper respiratory infection Medical Esta blished Patient with Cindy Oen NITROGEN OPERATOR 07/22/2018 [facility] Work Phone: Evaluation note Includes: Assessments for all patient encounters Findings Encounter Date Hypertrophic scar Medical Established Patient with Noemi Givens NITROGEN OPERATOR 03/04/2021 Seborrheic keratosis Medical Established Patient with Noemi Chon NITROGEN OPERATOR 03/04/2021 Z68.38 - Body mass index [BM I] 38.0-38.9, adult Medical Established Patient with Noemi Givens NITROGEN OPERATOR 03/04/2021 Acute sinusitis Open Access - Establ ished with Noemi Givens NITROGEN OPERATOR 01/24/2021 Obesity due to excess calories Open Acce ss - Established with Noemi Givens NITROGEN OPERATOR 01/24/2021 Z68.37 - Body mass index [BM I] 37.0-37.9, adult Open Access - Established with Noemi Givens NITROGEN OPERATOR 01/24/2021 Body mass index Medical New Patient with Shazia Bhatti NITROGEN OPERATOR 11/26/2020 Dast - 10 Score was 0 11/26/2020 Medical New Patient with Shazia Bhatti NITROGEN OPERATOR 11/26/2020 J01.90 - Acute sinusitis, unspecified Me dical New Patient with Shazia Sewellrad NITROGEN OPERATOR 11/26/2020 Obesity due to excess calories Medical N ew Patient with Shazia Sewellrad NITROGEN OPERATOR 11/26/2020 PHQ-9: total score was eight 11/26/2020 M edical New Patient with Shazia Bhatti NITROGEN OPERATOR 11/26/2020 Prediabetes Medical New Patient with Shazia Bhatti NITROGEN OPERATOR 11/26/2020 Dependence on nicotine in ci garettes - uncomplicated BH Established Patient with Mimi Hueve TERRAZZO WORKER 09/19/2020 Moderate recurrent major depression BH E stablished Patient with Mimi Hueve TERRAZZO WORKER 09/19/2020 Sleep disorder BH Established Patie nt with Mimipaty Santiagoe TERRAZZO WORKER 09/19/2020 Body mass index [BMI] 37.0-37.9, adult M edical Established Patient with Maty Love NITROGEN OPERATOR 09/19/2020 Chronic pain Medical Established Patient with Maty Love NITROGEN OPERATOR 09/19/2020 Dependence on nicotine in ci garettes - uncomplicated Medical Established Patient with Maty Love NITROGEN OPERATOR 09/19/2020 Encounter for screening for diabetes mellitus Medical Established Patient with Maty Maag NITROGEN OPERATOR 09/19/2020 Fibromyalgia Medical Established Patient with Matycara Love NITROGEN OPERATOR 09/19/2020 Generalized anxiety disorder Medical Est ablished Patient with Maty Maag NITROGEN OPERATOR 09/19/2020 Moderate recurrent major depression [place] Established Patient with Maty Maag NITROGEN OPERATOR 09/19/2020 Sleep disorder Medical Established Patient with Maty Maag NITROGEN OPERATOR 09/19/2020 Exposure to a viral disease Telemedicine New Patient with Ro Austin NITROGEN OPERATOR 09/07/2020 Encounter for Immunization 1st COVID Vac cine with Xi Roberson PharmD 08/27/2020 Generalized anxiety disorder BH Telebeha vioral Health with Mimi Santiagoe TERRAZZO WORKER 03/05/2020 Moderate recurrent major depression T elebehavioral Health with Mimipaty Santiagoe TERRAZZO WORKER 03/05/2020 Nicotine dependence uncomplicated BH Tel ebehavioral Health with Mimipaty Santiagoe TERRAZZO WORKER 03/05/2020 Chronic sinusitis, unspecified Telemedic ine Establisted Patient with Maty Maag NITROGEN OPERATOR 03/05/2020 Magnesium deficiency Telemedicine Establ isted Patient with Maty Madoyle NITROGEN OPERATOR 03/05/2020 Nicotine dependence, unspeci fied, uncomplicated Telemedicine Establisted Patient with Maty Maag NITROGEN OPERATOR 03/05/2020 Vitamin D deficiency, unspecified Teleme dicine Establisted Patient with Maty Maag NITROGEN OPERATOR 03/05/2020 B07.9 - Viral wart, unspecified Medical Established Patient with Noemi Chon NITROGEN OPERATOR 01/23/2020 Epidermal inclusion cyst Medical Establi shed Patient with Noemi Chon NITROGEN OPERATOR 01/23/2020 L82.1 - Other seborrheic keratosis Medic al Established Patient with Noemi Chon NITROGEN OPERATOR 01/23/2020 Obesity due to excess calories Medical E stablished Patient with Noemi Chon NITROGEN OPERATOR 01/23/2020 Z68.39 - Body mass index (BM I) 39.0-39.9, adult Medical Established Patient with Noemi Chon NITROGEN OPERATOR 01/23/2020 Bipolar disorder, current ep isode hypomanic Telemedicine with Maty Madoyle NITROGEN OPERATOR 11/27/2019 Body mass index Telemedicine with Maty Gonzalez CAR UNLOADER HELPER 11/27/2019 Chronic sinusitis, unspecified Telemedicine with Maty Madoyle NITROGEN OPERATOR 11/27/2019 Nicotine dependence, unspeci fied, uncomplicated Telemedicine with Maty Madoyle NITROGEN OPERATOR 11/27/2019 Obesity due to excess calories Telemedicine with Maty Love NITROGEN OPERATOR 11/27/2019 Fibromyalgia Telemedicine with Maty Love C CAR UNLOADER HELPER 09/28/2019 Generalized anxiety disorder Telemedicine with Deandre Love NITROGEN OPERATOR 09/28/2019 Major depressive disorder, r ecurrent, moderate Telemedicine with Maty Madoyle NITROGEN OPERATOR 09/28/2019 Nicotine dependence, cigaret leonel, uncomplicated Telemedicine with Maty Madoyle NITROGEN OPERATOR 09/28/2019 Generalized anxiety disorder Establis hed Patient with Mimi Hupetere TERRAZZO WORKER 08/18/2019 Mild recurrent major depression Estab lished Patient with Mimi Hupetere TERRAZZO WORKER 08/18/2019 Nicotine dependence uncomplicated BH Est ablished Patient with Mimi Hueve TERRAZZO WORKER 08/18/2019 Allergy, unspecified, initial encounter Medical Established Patient with Maty Love NITROGEN OPERATOR 08/18/2019 Body mass index (BMI) 38.0-38.9, adult M edical Established Patient with Maty Love NITROGEN OPERATOR 08/18/2019 Chronic obstructive pulmonar y disease, unspecified Medical Established Patient with Maty Love NITROGEN OPERATOR 08/18/2019 Chronic pain syndrome Medical Establishe d Patient with Maty Love NITROGEN OPERATOR 08/18/2019 Diabetes Risk Test Score was five score 08/18/2019 Medical Established Patient with Maty Love NITROGEN OPERATOR 08/18/2019 Fibromyalgia Medical Established Patient with Maty Love NITROGEN OPERATOR 08/18/2019 Generalized anxiety disorder Medical Est ablished Patient with Maty Love NITROGEN OPERATOR 08/18/2019 Major depressive disorder, r ecurrent, moderate Medical Established Patient with Maty Love NITROGEN OPERATOR 08/18/2019 Nicotine dependence, unspeci fied, uncomplicated Medical Established Patient with Maty Love NITROGEN OPERATOR 08/18/2019 Obesity due to excess calories Medical E stablished Patient with Maty Love NITROGEN OPERATOR 08/18/2019 Prediabetes Medical Established Patient with Maty Love NITROGEN OPERATOR 08/18/2019 Sleep disorder, unspecified Medical Esta blished Patient with Maty Love NITROGEN OPERATOR 08/18/2019 Acute laryngopharyngitis Medical Establi shed Patient with Cindy Walkern NITROGEN OPERATOR 07/13/2019 Acute pansinusitis unspecified Medical E stablished Patient with Cindy Oen NITROGEN OPERATOR 07/13/2019 Body mass index Medical Established Patient with Cindy Oen NITROGEN OPERATOR 07/13/2019 Obesity due to excess calories Medical E stablished Patient with Cindy Oen NITROGEN OPERATOR 07/13/2019 Generalized anxiety disorder BH Establis hed Patient with Mimi Hueve TERRAZZO WORKER 01/06/2019 Moderate recurrent major depression BH E stablished Patient with Mimi Hueve TERRAZZO WORKER 01/06/2019 Anxiety disorder NOS Medical Established Patient with Cindy Oen NITROGEN OPERATOR 01/06/2019 Anxiety disorder of unknown (axis III) etiology Medical Established Patient with Cindy Oen NITROGEN OPERATOR 01/06/2019 Depression Medical Established Patient with Cindy Oen NITROGEN OPERATOR 01/06/2019 Generalized anxiety disorder Medical Est ablished Patient with Cindy Oen NITROGEN OPERATOR 01/06/2019 Adjustment disorder BH Established Patie nt with Leilani REED 10/06/2018 Body mass index Medical Established Patient with Cindy Oen NITROGEN OPERATOR 10/06/2018 Dast - 10 Score was 0 10/06/2018 Medical Established Patient with Cindy Oen NITROGEN OPERATOR 10/06/2018 PHQ-9: total score was eight 10/06/2018 M edical Established Patient with Cindy Oen NITROGEN OPERATOR 10/06/2018 Viral gastroenteritis (Fairplay virus) Me dical Established Patient with Cindy Oen NITROGEN OPERATOR 10/06/2018 Viral infection Medical Established Patient with Cindy Oen NITROGEN OPERATOR 10/06/2018 swelling in [place]- seein g an ENT- trying to get shots for her allergies Medical Established Patient with Cindy Oen NITROGEN OPERATOR 08/11/2018 Allergic rhinitis Medical Established Patient with Cindy Oen NITROGEN OPERATOR 08/11/2018 Prehypertension Medical Established Patient with Cindy Oen NITROGEN OPERATOR 08/11/2018 Acute pharyngitis Medical Established Patient with Cindy Oen NITROGEN OPERATOR 07/22/2018 Assessment of cough Medical Established Patient with Cindy Oen NITROGEN OPERATOR 07/22/2018 Assessment of fever Medical Established Patient with Cindy Oen NITROGEN OPERATOR 07/22/2018 Bronchiolitis infectious Medical Establi shed Patient with Cindy Oen NITROGEN OPERATOR 07/22/2018 Upper respiratory infection Medical Esta blished Patient with Cindy Oen NITROGEN OPERATOR 07/22/2018 [facility] Work Phone: Evaluation note Assessments not supported for this document type No Assessments [facility] Work Phone: Evaluation noteNo assessment [facility]: [facility] note* Diagnosis Onset Date Resolution Status Abnormal stress test acute Aortic regurgitation chronic COPD (chronic obstructive pulmonary disease) chronic Fibromyalgia chronic Hyperlipidemia chronic Nicotine dependence chronic [facility] Work Phone: History of Present illness Narrative History of Present Illness not supported for this document type No History of Present Illness [facility] Work Phone: Hospital Discharge instructions Additional Instructions [...] been to your follow up appointment Keep stripper cutter machine appointment as scheduled Call your stripper cutter machine if any signs of bleeding, swelling, pain, redness, numbness, tingling, weakness or coolness of the extremity occur Return to work schedule will be addressed by your stripper cutter machine at the follow up appointment. Additional Wound Instructions: [facility] Work Phone: Hospital Discharge instructions Additional Instructions Please keep yourself well-hydrated and use of Lomotil to stop the loose stool/diarrhea and you may add the Phenergan/promethazine on top of the Zofran if needed for further nausea/vomit control. If you have any further concerns or worsening symptoms please return [facility]WR[facility] Work Phone: Hospital Discharge instructionsAdditional Instructions Ice to your tailbone and buttocks. Tylenol for pain. Motrin for pain and swelling. This should progressively improve but may take weeks. You can use an air doughnut or pillow to sit on it to make it more comfortable. Follow-up with your doctor as needed.[facility] Work Phone: Instructions Instructions not supported for this document type No Instructions [facility] Work Phone: patient problem outcome Narrative Includes: Evaluations & Outcomes for active Goals No Outcomes [facility] Work Phone: reason for referral (narrative)No Reason for Referral [facility] Work Phone: Reason for referral (narrative)No reason for referral information availableWRiverside [facility] Work Phone: Review of systems Narrative - Reported Review of Systems not supported for this document type No Review of Systems [facility] Work Phone: Summary Purpose Family History No Family History Records Found Description Last Updated Family history of heart disease 01/07/20 19 Family history of hypertension 9 Family history [...] FoundDocuments on File Type Date Recorded Patient Delineator Expl anation ACP-Advance Directive ACP-Power of Manager Statistics Advance Directive Response Recorded Date/ Time [facility] DNR Comfort Care No Directive, No SS Referral September 10, 2020 8:01am [facility] DNR Comfort Ca re Arrest No Directive, No SS Referral September 10, 2020 8:01am Living Will No Directive, No SS Referral [facility] 2020 8:01am Durable Power of Manager Statistics fo r Health Care No Directive, No SS Referral September 10, 2020 8:01am Advance Directive Response Recorded Date/ Time [facility] DNR Comfort Care No Directive, No SS Referral September 10, 2020 7:01am [facility] DNR Comfort Ca re Arrest No Directive, No SS Referral September 10, 2020 7:01am Living Will No Directive, No SS Referral [facility] 2020 7:01am Durable Power of Manager Statistics fo r Health Care No Directive, No SS Referral September 10, 2020 7:01am Advance Directive Response Recorded Date/ Time Living Will No July 28 6:39am Power of Manager Statistics No July 28, 2023 6:39am Advance Directive Response Recorded Date/ Time Do you have a Healthcare Power of Manager Statistics? No Christina 27th, 2025 10:05pm Assessments Findings Encounter Date Adjustment disorder Established Patie nt with Leilani Abarca TERRAZZO WORKER-S 10/06/2018 Body mass index Medical Established Patient with Cindy Oen NITROGEN OPERATOR 10/06/2018 Dast - 10 Score was 0 10/06/2018 Medical Established Patient with Cindy Oen NITROGEN OPERATOR 10/06/2018 PHQ-9: total score was eight 10/06/2018 M edical Established Patient with Cindy Oen NITROGEN OPERATOR 10/06/2018 Viral gastroenteritis (Fairplay virus) Me dical Established Patient with Cindy Oen NITROGEN OPERATOR 10/06/2018 Viral infection Medical Established Patient with Cindy Oen NITROGEN OPERATOR 10/06/2018 swelling in [place]- seein g an ENT- trying to get shots for her allergies Medical Established Patient with Cindy Oen NITROGEN OPERATOR 08/11/2018 Allergic rhinitis Medical Established Patient with Cindy Oen NITROGEN OPERATOR 08/11/2018 Prehypertension Medical Established Patient with Cindy Oen NITROGEN OPERATOR 08/11/2018 Acute pharyngitis Medical Established Patient with Cnidy Oen NITROGEN OPERATOR 07/22/2018 Assessment of cough Medical Established Patient with Cindy Oen NITROGEN OPERATOR 07/22/2018 Assessment of fever Medical Established Patient with Cindy Oen NITROGEN OPERATOR 07/22/2018 Bronchiolitis infectious Medical Establi shed Patient with Cindy Oen NITROGEN OPERATOR 07/22/2018 Upper respiratory infection Medical Esta blished Patient with Cindy Oen NITROGEN OPERATOR 07/22/2018 Findings Encounter Date Generalized anxiety disorder Establis hed Patient with Mimi Hueve TERRAZZO WORKER 01/06/2019 Moderate recurrent major depression E stablished Patient with Mimi Hueve TERRAZZO WORKER 01/06/2019 Adjustment disorder Established Patie nt with Leilani Abarca TERRAZZO WORKER-S 10/06/2018 Body mass index Medical Established Patient with Cindy Oen NITROGEN OPERATOR 10/06/2018 Dast - 10 Score was 0 10/06/2018 Medical Established Patient with Cindy Oen NITROGEN OPERATOR 10/06/2018 PHQ-9: total score was eight 10/06/2018 M edical Established Patient with Cindy Oen NITROGEN OPERATOR 10/06/2018 Viral gastroenteritis (Fairplay virus) Me dical Established Patient with Cindy Oen NITROGEN OPERATOR 10/06/2018 Viral infection Medical Established Patient with Cindy Oen NITROGEN OPERATOR 10/06/2018 swelling in [place]- seein g an ENT- trying to get shots for her allergies Medical Established Patient with Cindy Oen NITROGEN OPERATOR 08/11/2018 Allergic rhinitis Medical Established Patient with Cindy Oen NITROGEN OPERATOR 08/11/2018 Prehypertension Medical Established Patient with Cindy Oen NITROGEN OPERATOR 08/11/2018 Acute pharyngitis Medical Established Patient with Cindy Oen NITROGEN OPERATOR 07/22/2018 Assessment of cough Medical Established Patient with Cindy Oen NITROGEN OPERATOR 07/22/2018 Assessment of fever Medical Established Patient with Cindy Oen NITROGEN OPERATOR 07/22/2018 Bronchiolitis infectious Medical Establi shed Patient with Cindy Oen NITROGEN OPERATOR 07/22/2018 Upper respiratory infection Medical Esta blished Patient with Cindy Oen NITROGEN OPERATOR 07/22/2018 Findings Encounter Date Generalized anxiety disorder BH Establis hed Patient with Mimi Hueve TERRAZZO WORKER 01/06/2019 Moderate recurrent major depression BH E stablished Patient with Mimi Hueve TERRAZZO WORKER 01/06/2019 Anxiety disorder NOS Medical Established Patient with Cindy Oen NITROGEN OPERATOR 01/06/2019 Anxiety disorder of unknown (axis III) etiology Medical Established Patient with Cindy Oen NITROGEN OPERATOR 01/06/2019 Depression Medical Established Patient with Cindy Oen NITROGEN OPERATOR 01/06/2019 Generalized anxiety disorder Medical Est ablished Patient with Cindy Oen NITROGEN OPERATOR 01/06/2019 Adjustment disorder BH Established Patie nt with Leilani ESCOBAR-S 10/06/2018 Body mass index Medical Established Patient with Cindy Oen NITROGEN OPERATOR 10/06/2018 Dast - 10 Score was 0 10/06/2018 Medical Established Patient with Cindy Oen NITROGEN OPERATOR 10/06/2018 PHQ-9: total score was eight 10/06/2018 M edical Established Patient with Cindy Oen NITROGEN OPERATOR 10/06/2018 Viral gastroenteritis (Fairplay virus) Me dical Established Patient with Cindy Oen NITROGEN OPERATOR 10/06/2018 Viral infection Medical Established Patient with Cindy Oen NITROGEN OPERATOR 10/06/2018 swelling in [place]- seein g an ENT- trying to get shots for her allergies Medical Established Patient with Cindy Oen NITROGEN OPERATOR 08/11/2018 Allergic rhinitis Medical Established Patient with Cindy Oen NITROGEN OPERATOR 08/11/2018 Prehypertension Medical Established Patient with Cinyd Oen NITROGEN OPERATOR 08/11/2018 Acute pharyngitis Medical Established Patient with Cindy Oen NITROGEN OPERATOR 07/22/2018 Assessment of cough Medical Established Patient with Cindy Oen NITROGEN OPERATOR 07/22/2018 Assessment of fever Medical Established Patient with Cindy Oen NITROGEN OPERATOR 07/22/2018 Bronchiolitis infectious Medical Establi shed Patient with Cindy Oen NITROGEN OPERATOR 07/22/2018 Upper respiratory infection Medical Esta blished Patient with Cindy Oen NITROGEN OPERATOR 07/22/2018 Findings Encounter Date Acute laryngopharyngitis Medical Establi shed Patient with Cindy Oen NITROGEN OPERATOR 07/13/2019 Acute pansinusitis unspecified Medical E stablished Patient with Cindy Oen NITROGEN OPERATOR 07/13/2019 Body mass index Medical Established Patient with Cindy Oen NITROGEN OPERATOR 07/13/2019 Obesity due to excess calories Medical E stablished Patient with Cindy Oen NITROGEN OPERATOR 07/13/2019 Generalized anxiety disorder BH Establis hed Patient with Mimi Hueve TERRAZZO WORKER 01/06/2019 Moderate recurrent major depression BH E stablished Patient with Mimi Hueve TERRAZZO WORKER 01/06/2019 Anxiety disorder NOS Medical Established Patient with Cindy Oen NITROGEN OPERATOR 01/06/2019 Anxiety disorder of unknown (axis III) etiology Medical Established Patient with Cindy Oen NITROGEN OPERATOR 01/06/2019 Depression Medical Established Patient with Cindy Oen NITROGEN OPERATOR 01/06/2019 Generalized anxiety disorder Medical Est ablished Patient with Cindy Oen NITROGEN OPERATOR 01/06/2019 Adjustment disorder BH Established Patie nt with Leilani ESCOBAR-S 10/06/2018 Body mass index Medical Established Patient with Cindy Oen NITROGEN OPERATOR 10/06/2018 Dast - 10 Score was 0 10/06/2018 Medical Established Patient with Cindy Oen NITROGEN OPERATOR 10/06/2018 PHQ-9: total score was eight 10/06/2018 M edical Established Patient with Cindy Oen NITROGEN OPERATOR 10/06/2018 Viral gastroenteritis (Fairplay virus) Me dical Established Patient with Cindy Oen NITROGEN OPERATOR 10/06/2018 Viral infection Medical Established Patient with Cindy Oen NITROGEN OPERATOR 10/06/2018 swelling in [place]- seein g an ENT- trying to get shots for her allergies Medical Established Patient with Cindy Oen NITROGEN OPERATOR 08/11/2018 Allergic rhinitis Medical Established Patient with Cindy Oen NITROGEN OPERATOR 08/11/2018 Prehypertension Medical Established Patient with Cindy Oen NITROGEN OPERATOR 08/11/2018 Acute pharyngitis Medical Established Patient with Cindy Oen NITROGEN OPERATOR 07/22/2018 Assessment of cough Medical Established Patient with Cindy Oen NITROGEN OPERATOR 07/22/2018 Assessment of fever Medical Established Patient with Cindy Oen NITROGEN OPERATOR 07/22/2018 Bronchiolitis infectious Medical Establi shed Patient with Cindy Oen NITROGEN OPERATOR 07/22/2018 Upper respiratory infection Medical Esta blished Patient with Cindy Oen NITROGEN OPERATOR 07/22/2018 Findings Encounter Date Generalized anxiety disorder BH Establis hed Patient with Mimi Hueve TERRAZZO WORKER 08/18/2019 Mild recurrent major depression BH Estab lished Patient with Mimi Hueve TERRAZZO WORKER 08/18/2019 Nicotine dependence uncomplicated BH Est ablished Patient with Mimi Hueve TERRAZZO WORKER 08/18/2019 Body mass index (BMI) 38.0-38.9, adult M edical Established Patient with Maty Maag NITROGEN OPERATOR 08/18/2019 Obesity due to excess calories Medical E stablished Patient with Maty Maag NITROGEN OPERATOR 08/18/2019 Acute laryngopharyngitis Medical Establi shed Patient with Cindy Oen NITROGEN OPERATOR 07/13/2019 Acute pansinusitis unspecified Medical E stablished Patient with Cindy Oen NITROGEN OPERATOR 07/13/2019 Body mass index Medical Established Patient with Cindy Oen NITROGEN OPERATOR 07/13/2019 Obesity due to excess calories Medical E stablished Patient with Cindy Oen NITROGEN OPERATOR 07/13/2019 Generalized anxiety disorder BH Establis hed Patient with Mimi Hueve TERRAZZO WORKER 01/06/2019 Moderate recurrent major depression BH E stablished Patient with Mimi Hueve TERRAZZO WORKER 01/06/2019 Anxiety disorder NOS Medical Established Patient with Cindy Oen NITROGEN OPERATOR 01/06/2019 Anxiety disorder of unknown (axis III) etiology Medical Established Patient with Cindy Oen NITROGEN OPERATOR 01/06/2019 Depression Medical Established Patient with Cindy Oen NITROGEN OPERATOR 01/06/2019 Generalized anxiety disorder Medical Est ablished Patient with Cindy Oen NITROGEN OPERATOR 01/06/2019 Adjustment disorder BH Established Patie nt with Leilani SQUIRESW-S 10/06/2018 Body mass index Medical Established Patient with Cinyd Oen NITROGEN OPERATOR 10/06/2018 Dast - 10 Score was 0 10/06/2018 Medical Established Patient with Cindy Oen NITROGEN OPERATOR 10/06/2018 PHQ-9: total score was eight 10/06/2018 M edical Established Patient with Cindy Oen NITROGEN OPERATOR 10/06/2018 Viral gastroenteritis (Fairplay virus) Me dical Established Patient with Cindy Oen NITROGEN OPERATOR 10/06/2018 Viral infection Medical Established Patient with Cindy Oen NITROGEN OPERATOR 10/06/2018 swelling in [place]- seein g an ENT- trying to get shots for her allergies Medical Established Patient with Cindy Walkern NITROGEN OPERATOR 08/11/2018 Allergic rhinitis Medical Established Patient with Cindy Walkern NITROGEN OPERATOR 08/11/2018 Prehypertension Medical Established Patient with Cindy Walkern NITROGEN OPERATOR 08/11/2018 Acute pharyngitis Medical Established Patient with Cindy Walkern NITROGEN OPERATOR 07/22/2018 Assessment of cough Medical Established Patient with Cindy Walkern NITROGEN OPERATOR 07/22/2018 Assessment of fever Medical Established Patient with Cindy Walkern NITROGEN OPERATOR 07/22/2018 Bronchiolitis infectious Medical Establi shed Patient with Cindy Walkern NITROGEN OPERATOR 07/22/2018 Upper respiratory infection Medical Esta blished Patient with Cindy Lopes NITROGEN OPERATOR 07/22/2018 Findings Encounter Date Generalized anxiety disorder BH Establis hed Patient with Mimi Santiagoe TERRAZZO WORKER 08/18/2019 Mild recurrent major depression BH Estab lished Patient with Mimipaty Santiagoe TERRAZZO WORKER 08/18/2019 Nicotine dependence uncomplicated BH Est ablished Patient with Mimi Santiagoe TERRAZZO WORKER 08/18/2019 Allergy, unspecified, initial encounter Medical Established Patient with Maty Love NITROGEN OPERATOR 08/18/2019 Body mass index (BMI) 38.0-38.9, adult M edical Established Patient with Maty Love NITROGEN OPERATOR 08/18/2019 Chronic obstructive pulmonar y disease, unspecified Medical Established Patient with Maty Love NITROGEN OPERATOR 08/18/2019 Chronic pain syndrome Medical Establishe d Patient with Maty Love NITROGEN OPERATOR 08/18/2019 Diabetes Risk Test Score was five score 08/18/2019 Medical Established Patient with Maty Love NITROGEN OPERATOR 08/18/2019 Fibromyalgia Medical Established Patient with Maty Love NITROGEN OPERATOR 08/18/2019 Generalized anxiety disorder Medical Est ablished Patient with Matycara Love NITROGEN OPERATOR 08/18/2019 Major depressive disorder, r ecurrent, moderate Medical Established Patient with Maty Love NITROGEN OPERATOR 08/18/2019 Nicotine dependence, unspeci fied, uncomplicated Medical Established Patient with Matycara Love NITROGEN OPERATOR 08/18/2019 Obesity due to excess calories Medical E stablished Patient with Matycara Love NITROGEN OPERATOR 08/18/2019 Prediabetes Medical Established Patient with Maty Love NITROGEN OPERATOR 08/18/2019 Sleep disorder, unspecified Medical Esta blished Patient with Maty Love NITROGEN OPERATOR 08/18/2019 Acute laryngopharyngitis Medical Establi shed Patient with Cindy Oen NITROGEN OPERATOR 07/13/2019 Acute pansinusitis unspecified Medical E stablished Patient with Cindy Oen NITROGEN OPERATOR 07/13/2019 Body mass index Medical Established Patient with Cindy Oen NITROGEN OPERATOR 07/13/2019 Obesity due to excess calories Medical E stablished Patient with Cindy Oen NITROGEN OPERATOR 07/13/2019 Generalized anxiety disorder BH Establis hed Patient with Mimi Hupetere TERRAZZO WORKER 01/06/2019 Moderate recurrent major depression BH E stablished Patient with Mimi Hueve TERRAZZO WORKER 01/06/2019 Anxiety disorder NOS Medical Established Patient with Cindy Oen NITROGEN OPERATOR 01/06/2019 Anxiety disorder of unknown (axis III) etiology Medical Established Patient with Cindy Oen NITROGEN OPERATOR 01/06/2019 Depression Medical Established Patient with Cindy Oen NITROGEN OPERATOR 01/06/2019 Generalized anxiety disorder Medical Est ablished Patient with Cindy Oen NITROGEN OPERATOR 01/06/2019 Adjustment disorder BH Established Patie nt with Leilani Tevin SQUIRESW-S 10/06/2018 Body mass index Medical Established Patient with Cindy Oen NITROGEN OPERATOR 10/06/2018 Dast - 10 Score was 0 10/06/2018 Medical Established Patient with Cindy Oen NITROGEN OPERATOR 10/06/2018 PHQ-9: total score was eight 10/06/2018 M edical Established Patient with Cindy Oen NITROGEN OPERATOR 10/06/2018 Viral gastroenteritis (Fairplay virus) Me dical Established Patient with Cindy Oen NITROGEN OPERATOR 10/06/2018 Viral infection Medical Established Patient with Cindy Oen NITROGEN OPERATOR 10/06/2018 swelling in [place]- seein g an ENT- trying to get shots for her allergies Medical Established Patient with Cindy Oen NITROGEN OPERATOR 08/11/2018 Allergic rhinitis Medical Established Patient with Cindy Oen NITROGEN OPERATOR 08/11/2018 Prehypertension Medical Established Patient with Cindy Oen NITROGEN OPERATOR 08/11/2018 Acute pharyngitis Medical Established Patient with Cindy Oen NITROGEN OPERATOR 07/22/2018 Assessment of cough Medical Established Patient with Cindy Oen NITROGEN OPERATOR 07/22/2018 Assessment of fever Medical Established Patient with Cindy Oen NITROGEN OPERATOR 07/22/2018 Bronchiolitis infectious Medical Establi shed Patient with Cindy Oen NITROGEN OPERATOR 07/22/2018 Upper respiratory infection Medical Esta blished Patient with Cindy Oen NITROGEN OPERATOR 07/22/2018 Findings Encounter Date Fibromyalgia Telemedicine with Maty Gonzalez NP 09/28/2019 Generalized anxiety disorder Telemedicine with Deandre Love NITROGEN OPERATOR 09/28/2019 Major depressive disorder, r ecurrent, moderate Telemedicine with Maty Love NITROGEN OPERATOR 09/28/2019 Nicotine dependence, cigaret leonel, uncomplicated Telemedicine with Maty Love NITROGEN OPERATOR 09/28/2019 Generalized anxiety disorder BH Establis hed Patient with Mimi Hueve TERRAZZO WORKER 08/18/2019 Mild recurrent major depression BH Estab lished Patient with Mimi Hueve TERRAZZO WORKER 08/18/2019 Nicotine dependence uncomplicated BH Est ablished Patient with Mimi Hueve TERRAZZO WORKER 08/18/2019 Allergy, unspecified, initial encounter Medical Established Patient with Maty Love NITROGEN OPERATOR 08/18/2019 Body mass index (BMI) 38.0-38.9, adult M edical Established Patient with Maty Love NITROGEN OPERATOR 08/18/2019 Chronic obstructive pulmonar y disease, unspecified Medical Established Patient with Matycara Love NITROGEN OPERATOR 08/18/2019 Chronic pain syndrome Medical Establishe d Patient with Maty Love NITROGEN OPERATOR 08/18/2019 Diabetes Risk Test Score was five score 08/18/2019 Medical Established Patient with Maty Maag NITROGEN OPERATOR 08/18/2019 Fibromyalgia Medical Established Patient with Maty Maag NITROGEN OPERATOR 08/18/2019 Generalized anxiety disorder Medical Est ablished Patient with Maty Love NITROGEN OPERATOR 08/18/2019 Major depressive disorder, r ecurrent, moderate Medical Established Patient with Maty Love NITROGEN OPERATOR 08/18/2019 Nicotine dependence, unspeci fied, uncomplicated Medical Established Patient with Maty Maag NITROGEN OPERATOR 08/18/2019 Obesity due to excess calories Medical E stablished Patient with Maty Maag NITROGEN OPERATOR 08/18/2019 Prediabetes Medical Established Patient with Maty Maag NITROGEN OPERATOR 08/18/2019 Sleep disorder, unspecified Medical Esta blished Patient with Maty Maag NITROGEN OPERATOR 08/18/2019 Acute laryngopharyngitis Medical Establi shed Patient with Cindy Oen NITROGEN OPERATOR 07/13/2019 Acute pansinusitis unspecified Medical E stablished Patient with Cindy Oen NITROGEN OPERATOR 07/13/2019 Body mass index Medical Established Patient with Cindy Oen NITROGEN OPERATOR 07/13/2019 Obesity due to excess calories Medical E stablished Patient with Cindy Oen NITROGEN OPERATOR 07/13/2019 Generalized anxiety disorder BH Establis hed Patient with Mimi Hueve TERRAZZO WORKER 01/06/2019 Moderate recurrent major depression BH E stablished Patient with Mimi Dewitt TERRAZZO WORKER 01/06/2019 Anxiety disorder NOS Medical Established Patient with Cindy Oen NITROGEN OPERATOR 01/06/2019 Anxiety disorder of unknown (axis III) etiology Medical Established Patient with Cindy Oen NITROGEN OPERATOR 01/06/2019 Depression Medical Established Patient with Cindy Oen NITROGEN OPERATOR 01/06/2019 Generalized anxiety disorder Medical Est ablished Patient with Cindy Oen NITROGEN OPERATOR 01/06/2019 Adjustment disorder BH Established Patie nt with Leilani Tevin ESCOBAR-S 10/06/2018 Body mass index Medical Established Patient with Cindy Oen NITROGEN OPERATOR 10/06/2018 Dast - 10 Score was 0 10/06/2018 Medical Established Patient with Cindy Oen NITROGEN OPERATOR 10/06/2018 PHQ-9: total score was eight 10/06/2018 M edical Established Patient with Cindy Oen NITROGEN OPERATOR 10/06/2018 Viral gastroenteritis (Fairplay virus) Me dical Established Patient with Cindy Oen NITROGEN OPERATOR 10/06/2018 Viral infection Medical Established Patient with Cindy Oen NITROGEN OPERATOR 10/06/2018 swelling in [place]- seein g an ENT- trying to get shots for her allergies Medical Established Patient with Cindy Oen NITROGEN OPERATOR 08/11/2018 Allergic rhinitis Medical Established Patient with Cindy Oen NITROGEN OPERATOR 08/11/2018 Prehypertension Medical Established Patient with Cindy Oen NITROGEN OPERATOR 08/11/2018 Acute pharyngitis Medical Established Patient with Cindy Oen NITROGEN OPERATOR 07/22/2018 Assessment of cough Medical Established Patient with Cindy Oen NITROGEN OPERATOR 07/22/2018 Assessment of fever Medical Established Patient with Cindy Oen NITROGEN OPERATOR 07/22/2018 Bronchiolitis infectious Medical Establi shed Patient with Cindy Oen NITROGEN OPERATOR 07/22/2018 Upper respiratory infection Medical Esta blished Patient with Cindy Oen NITROGEN OPERATOR 07/22/2018 Findings Encounter Date Bipolar disorder, current ep isode hypomanic Telemedicine with Maty Love CNP 11/27/2019 Body mass index Telemedicine with Maty Gonzalez NP 11/27/2019 Chronic sinusitis, unspecified Telemedicine with Maty Love CNP 11/27/2019 Nicotine dependence, unspeci fied, uncomplicated Telemedicine with Maty Love CNP 11/27/2019 Obesity due to excess calories Telemedicine with Maty Love CNP 11/27/2019 Fibromyalgia Telemedicine with Maty Gonzalez NP 09/28/2019 Generalized anxiety disorder Telemedicine with Deandre Love NITROGEN OPERATOR 09/28/2019 Major depressive disorder, r ecurrent, moderate Telemedicine with Maty Love NITROGEN OPERATOR 09/28/2019 Nicotine dependence, cigaret leonel, uncomplicated Telemedicine with Maty Love NITROGEN OPERATOR 09/28/2019 Generalized anxiety disorder BH Establis hed Patient with Mimi Hueve TERRAZZO WORKER 08/18/2019 Mild recurrent major depression BH Estab lished Patient with Mimi Hueve TERRAZZO WORKER 08/18/2019 Nicotine dependence uncomplicated BH Est ablished Patient with Mimi Hueve TERRAZZO WORKER 08/18/2019 Allergy, unspecified, initial encounter Medical Established Patient with Maty Love NITROGEN OPERATOR 08/18/2019 Body mass index (BMI) 38.0-38.9, adult M edical Established Patient with Maty Love NITROGEN OPERATOR 08/18/2019 Chronic obstructive pulmonar y disease, unspecified Medical Established Patient with Maty Madoyle NITROGEN OPERATOR 08/18/2019 Chronic pain syndrome Medical Establishe d Patient with Maty Love NITROGEN OPERATOR 08/18/2019 Diabetes Risk Test Score was five score 08/18/2019 Medical Established Patient with Maty Maag NITROGEN OPERATOR 08/18/2019 Fibromyalgia Medical Established Patient with Maty Maag NITROGEN OPERATOR 08/18/2019 Generalized anxiety disorder Medical Est ablished Patient with Maty Maag NITROGEN OPERATOR 08/18/2019 Major depressive disorder, r ecurrent, moderate Medical Established Patient with Maty Maag NITROGEN OPERATOR 08/18/2019 Nicotine dependence, unspeci fied, uncomplicated Medical Established Patient with Maty Maag NITROGEN OPERATOR 08/18/2019 Obesity due to excess calories Medical E stablished Patient with Maty Maag NITROGEN OPERATOR 08/18/2019 Prediabetes Medical Established Patient with Maty Maag NITROGEN OPERATOR 08/18/2019 Sleep disorder, unspecified Medical Esta blished Patient with Maty Maag NITROGEN OPERATOR 08/18/2019 Acute laryngopharyngitis Medical Establi shed Patient with Cindy Oen NITROGEN OPERATOR 07/13/2019 Acute pansinusitis unspecified Medical E stablished Patient with Cindy Oen NITROGEN OPERATOR 07/13/2019 Body mass index Medical Established Patient with Cindy Oen NITROGEN OPERATOR 07/13/2019 Obesity due to excess calories Medical E stablished Patient with Cindy Oen NITROGEN OPERATOR 07/13/2019 Generalized anxiety disorder BH Establis hed Patient with Mimi Hueve TERRAZZO WORKER 01/06/2019 Moderate recurrent major depression BH E stablished Patient with Mimi Hueve TERRAZZO WORKER 01/06/2019 Anxiety disorder NOS Medical Established Patient with Cindy Oen NITROGEN OPERATOR 01/06/2019 Anxiety disorder of unknown (axis III) etiology Medical Established Patient with Cindy Oen NITROGEN OPERATOR 01/06/2019 Depression Medical Established Patient with Cindy Oen NITROGEN OPERATOR 01/06/2019 Generalized anxiety disorder Medical Est ablished Patient with Cindy Oen NITROGEN OPERATOR 01/06/2019 Adjustment disorder BH Established Patie nt with Leilani Tevin SQUIRESW-S 10/06/2018 Body mass index Medical Established Patient with Cindy Oen NITROGEN OPERATOR 10/06/2018 Dast - 10 Score was 0 10/06/2018 Medical Established Patient with Cindy Oen NITROGEN OPERATOR 10/06/2018 PHQ-9: total score was eight 10/06/2018 M edical Established Patient with Cindy Oen NITROGEN OPERATOR 10/06/2018 Viral gastroenteritis (Fairplay virus) Me dical Established Patient with Cindy Oen NITROGEN OPERATOR 10/06/2018 Viral infection Medical Established Patient with Cindy Oen NITROGEN OPERATOR 10/06/2018 swelling in [place]- seein g an ENT- trying to get shots for her allergies Medical Established Patient with Cindy Oen NITROGEN OPERATOR 08/11/2018 Allergic rhinitis Medical Established Patient with Cindy Oen NITROGEN OPERATOR 08/11/2018 Prehypertension Medical Established Patient with Cindy Oen NITROGEN OPERATOR 08/11/2018 Acute pharyngitis Medical Established Patient with Cindy Oen NITROGEN OPERATOR 07/22/2018 Assessment of cough Medical Established Patient with Cindy Oen NITROGEN OPERATOR 07/22/2018 Assessment of fever Medical Established Patient with Cindy Oen NITROGEN OPERATOR 07/22/2018 Bronchiolitis infectious Medical Establi shed Patient with Cindy Oen NITROGEN OPERATOR 07/22/2018 Upper respiratory infection Medical Esta blished Patient with Cindy Oen NITROGEN OPERATOR 07/22/2018 Findings Encounter Date B07.9 - Viral wart, unspecified Medical Established Patient with Noemi Chon NITROGEN OPERATOR 01/23/2020 Epidermal inclusion cyst Medical Establi shed Patient with Noemi Chon NITROGEN OPERATOR 01/23/2020 L82.1 - Other seborrheic keratosis Medic al Established Patient with Noemi Chon NITROGEN OPERATOR 01/23/2020 Obesity due to excess calories Medical E stablished Patient with Noemi Chon NITROGEN OPERATOR 01/23/2020 Z68.39 - Body mass index (BM I) 39.0-39.9, adult Medical Established Patient with Noemi Chon NITROGEN OPERATOR 01/23/2020 Bipolar disorder, current ep isode hypomanic Telemedicine with Maty Love NITROGEN OPERATOR 11/27/2019 Body mass index Telemedicine with Maty Gonzalez CAR UNLOADER HELPER 11/27/2019 Chronic sinusitis, unspecified Telemedicine with Maty Love [facility] 11/27/2019 Nicotine dependence, unspeci fied, uncomplicated Telemedicine with Maty Love NITROGEN OPERATOR 11/27/2019 Obesity due to excess calories Telemedicine with Maty Love NITROGEN OPERATOR 11/27/2019 Fibromyalgia Telemedicine with Maty Chandlerdoyle Carlos HESS 09/28/2019 Generalized anxiety disorder Telemedicine with Deandre Love NITROGEN OPERATOR 09/28/2019 Major depressive disorder, r ecurrent, moderate Telemedicine with Maty Love [facility] 09/28/2019 Nicotine dependence, cigaret leonel, uncomplicated Telemedicine with Maty Love [facility] 09/28/2019 Generalized anxiety disorder BH Establis hed Patient with Mimi Santaigoe TERRAZZO WORKER 08/18/2019 Mild recurrent major depression BH Estab lished Patient with Mimipaty Santiagoe TERRAZZO WORKER 08/18/2019 Nicotine dependence uncomplicated BH Est ablished Patient with Mimipaty Santiagoe TERRAZZO WORKER 08/18/2019 Allergy, unspecified, initial encounter Medical Established Patient with Maty Love [facility] 08/18/2019 Body mass index (BMI) 38.0-38.9, adult M edical Established Patient with Maty Love [facility] 08/18/2019 Chronic obstructive pulmonar y disease, unspecified Medical Established Patient with Maty Love [facility] 08/18/2019 Chronic pain syndrome Medical Establishe d Patient with Maty Love [facility] 08/18/2019 Diabetes Risk Test Score was five score 08/18/2019 Medical Established Patient with Maty Love [facility] 08/18/2019 Fibromyalgia Medical Established Patient with Maty Love [facility] 08/18/2019 Generalized anxiety disorder Medical Est ablished Patient with Maty Love [facility] 08/18/2019 Major depressive disorder, r ecurrent, moderate Medical Established Patient with Maty Love [facility] 08/18/2019 Nicotine dependence, unspeci fied, uncomplicated Medical Established Patient with Maty Love [facility] 08/18/2019 Obesity due to excess calories Medical E stablished Patient with Maty Love [facility] 08/18/2019 Prediabetes Medical Established Patient with Maty Love [facility] 08/18/2019 Sleep disorder, unspecified Medical Esta blished Patient with Maty Love NITROGEN OPERATOR 08/18/2019 Acute laryngopharyngitis Medical Establi shed Patient with Cindy Oen NITROGEN OPERATOR 07/13/2019 Acute pansinusitis unspecified Medical E stablished Patient with Cindy Oen NITROGEN OPERATOR 07/13/2019 Body mass index Medical Established Patient with Cindy Oen NITROGEN OPERATOR 07/13/2019 Obesity due to excess calories Medical E stablished Patient with Cindy Oen NITROGEN OPERATOR 07/13/2019 Generalized anxiety disorder BH Establis hed Patient with Mimipaty Santiagoe TERRAZZO WORKER 01/06/2019 Moderate recurrent major depression BH E stablished Patient with Mimi Hueve TERRAZZO WORKER 01/06/2019 Anxiety disorder NOS Medical Established Patient with Cindy Oen NITROGEN OPERATOR 01/06/2019 Anxiety disorder of unknown (axis III) etiology Medical Established Patient with Cindy Oen NITROGEN OPERATOR 01/06/2019 Depression Medical Established Patient with Cindy Oen NITROGEN OPERATOR 01/06/2019 Generalized anxiety disorder Medical Est ablished Patient with Cindy Oen NITROGEN OPERATOR 01/06/2019 Adjustment disorder BH Established Patie nt with Leilani Tevin SQUIRESW-S 10/06/2018 Body mass index Medical Established Patient with Cindy Oen NITROGEN OPERATOR 10/06/2018 Dast - 10 Score was 0 10/06/2018 Medical Established Patient with Cindy Oen NITROGEN OPERATOR 10/06/2018 PHQ-9: total score was eight 10/06/2018 M edical Established Patient with Cindy Oen NITROGEN OPERATOR 10/06/2018 Viral gastroenteritis (Fairplay virus) Me dical Established Patient with Cindy Oen NITROGEN OPERATOR 10/06/2018 Viral infection Medical Established Patient with Cindy Oen NITROGEN OPERATOR 10/06/2018 swelling in [place]- seein g an ENT- trying to get shots for her allergies Medical Established Patient with Cindy Oen NITROGEN OPERATOR 08/11/2018 Allergic rhinitis Medical Established Patient with Cindy Oen NITROGEN OPERATOR 08/11/2018 Prehypertension Medical Established Patient with Cindy Oen NITROGEN OPERATOR 08/11/2018 Acute pharyngitis Medical Established Patient with Cindy Oen NITROGEN OPERATOR 07/22/2018 Assessment of cough Medical Established Patient with Cindy Oen NITROGEN OPERATOR 07/22/2018 Assessment of fever Medical Established Patient with Cindy Oen NITROGEN OPERATOR 07/22/2018 Bronchiolitis infectious Medical Establi shed Patient with Cindy Oen NITROGEN OPERATOR 07/22/2018 Upper respiratory infection Medical Esta blished Patient with Cindy Oen NITROGEN OPERATOR 07/22/2018 Findings Encounter Date Generalized anxiety disorder BH Telebeha v[facility] with Mimi Santiagoe TERRAZZO WORKER 03/05/2020 Moderate recurrent major depression T elebehavioral Health with Mimipaty Santiagoe TERRAZZO WORKER 03/05/2020 Nicotine dependence uncomplicated Tel ebehavioral Health with Mimipaty Santiagoe TERRAZZO WORKER 03/05/2020 Chronic sinusitis, unspecified Telemedic ine Establisted Patient with Maty Maag NITROGEN OPERATOR 03/05/2020 Magnesium deficiency Telemedicine Establ isted Patient with Maty Madoyle NITROGEN OPERATOR 03/05/2020 Nicotine dependence, unspeci fied, uncomplicated Telemedicine Establisted Patient with Maty Maag NITROGEN OPERATOR 03/05/2020 Vitamin D deficiency, unspecified Teleme dicine Establisted Patient with Maty Maag NITROGEN OPERATOR 03/05/2020 B07.9 - Viral wart, unspecified Medical Established Patient with Noemi Chon NITROGEN OPERATOR 01/23/2020 Epidermal inclusion cyst Medical Establi shed Patient with Noemi Chon NITROGEN OPERATOR 01/23/2020 L82.1 - Other seborrheic keratosis Medic al Established Patient with Noemi Chon NITROGEN OPERATOR 01/23/2020 Obesity due to excess calories Medical E stablished Patient with Noemi Chon NITROGEN OPERATOR 01/23/2020 Z68.39 - Body mass index (BM I) 39.0-39.9, adult Medical Established Patient with Noemi Chon NITROGEN OPERATOR 01/23/2020 Bipolar disorder, current ep isode hypomanic Telemedicine with Maty Madoyle NITROGEN OPERATOR 11/27/2019 Body mass index Telemedicine with Maty Gonzalez [employer] UNLOADER HELPER 11/27/2019 Chronic sinusitis, unspecified Telemedicine with Maty Madoyle NITROGEN OPERATOR 11/27/2019 Nicotine dependence, unspeci fied, uncomplicated Telemedicine with Maty Madoyle NITROGEN OPERATOR 11/27/2019 Obesity due to excess calories Telemedicine with Maty Love NITROGEN OPERATOR 11/27/2019 Fibromyalgia Telemedicine with Maty Love C [employer] UNLOADER HELPER 09/28/2019 Generalized anxiety disorder Telemedicine with Deandre Love NITROGEN OPERATOR 09/28/2019 Major depressive disorder, r ecurrent, moderate Telemedicine with Maty Madoyle NITROGEN OPERATOR 09/28/2019 Nicotine dependence, cigaret leonel, uncomplicated Telemedicine with Maty Madoyle NITROGEN OPERATOR 09/28/2019 Generalized anxiety disorder Establis hed Patient with Mimi Hueve TERRAZZO WORKER 08/18/2019 Mild recurrent major depression Estab lished Patient with Immi Hueve TERRAZZO WORKER 08/18/2019 Nicotine dependence uncomplicated BH Est ablished Patient with Mimi Hueve TERRAZZO WORKER 08/18/2019 Allergy, unspecified, initial encounter Medical Established Patient with Maty Love NITROGEN OPERATOR 08/18/2019 Body mass index (BMI) 38.0-38.9, adult M edical Established Patient with Maty Love NITROGEN OPERATOR 08/18/2019 Chronic obstructive pulmonar y disease, unspecified Medical Established Patient with Maty Love NITROGEN OPERATOR 08/18/2019 Chronic pain syndrome Medical Establishe d Patient with Maty Love NITROGEN OPERATOR 08/18/2019 Diabetes Risk Test Score was five score 08/18/2019 Medical Established Patient with Maty Love NITROGEN OPERATOR 08/18/2019 Fibromyalgia Medical Established Patient with Maty Love NITROGEN OPERATOR 08/18/2019 Generalized anxiety disorder Medical Est ablished Patient with Maty Love NITROGEN OPERATOR 08/18/2019 Major depressive disorder, r ecurrent, moderate Medical Established Patient with Maty Love NITROGEN OPERATOR 08/18/2019 Nicotine dependence, unspeci fied, uncomplicated Medical Established Patient with Maty Love NITROGEN OPERATOR 08/18/2019 Obesity due to excess calories Medical E stablished Patient with Maty Love NITROGEN OPERATOR 08/18/2019 Prediabetes Medical Established Patient with Maty Love NITROGEN OPERATOR 08/18/2019 Sleep disorder, unspecified Medical Esta blished Patient with Maty Love NITROGEN OPERATOR 08/18/2019 Acute laryngopharyngitis Medical Establi shed Patient with Cindy Oen NITROGEN OPERATOR 07/13/2019 Acute pansinusitis unspecified Medical E stablished Patient with Cindy Oen NITROGEN OPERATOR 07/13/2019 Body mass index Medical Established Patient with Cindy Oen NITROGEN OPERATOR 07/13/2019 Obesity due to excess calories Medical E stablished Patient with Cindy Oen NITROGEN OPERATOR 07/13/2019 Generalized anxiety disorder BH Establis hed Patient with Mimi Hueve TERRAZZO WORKER 01/06/2019 Moderate recurrent major depression BH E stablished Patient with Mimi Hueve TERRAZZO WORKER 01/06/2019 Anxiety disorder NOS Medical Established Patient with Cindy Oen NITROGEN OPERATOR 01/06/2019 Anxiety disorder of unknown (axis III) etiology Medical Established Patient with Cindy Oen NITROGEN OPERATOR 01/06/2019 Depression Medical Established Patient with Cindy Oen NITROGEN OPERATOR 01/06/2019 Generalized anxiety disorder Medical Est ablished Patient with Cindy Oen NITROGEN OPERATOR 01/06/2019 Adjustment disorder BH Established Patie nt with Leilani REED 10/06/2018 Body mass index Medical Established Patient with Cindy Oen NITROGEN OPERATOR 10/06/2018 Dast - 10 Score was 0 10/06/2018 Medical Established Patient with Cindy Oen NITROGEN OPERATOR 10/06/2018 PHQ-9: total score was eight 10/06/2018 M edical Established Patient with Cindy Oen NITROGEN OPERATOR 10/06/2018 Viral gastroenteritis (Fairplay virus) Me dical Established Patient with Cindy Oen NITROGEN OPERATOR 10/06/2018 Viral infection Medical Established Patient with Cindy Oen NITROGEN OPERATOR 10/06/2018 swelling in [place]- seein g an ENT- trying to get shots for her allergies Medical Established Patient with Cindy Oen NITROGEN OPERATOR 08/11/2018 Allergic rhinitis Medical Established Patient with Cindy Oen NITROGEN OPERATOR 08/11/2018 Prehypertension Medical Established Patient with Cindy Oen NITROGEN OPERATOR 08/11/2018 Acute pharyngitis Medical Established Patient with Cindy Oen NITROGEN OPERATOR 07/22/2018 Assessment of cough Medical Established Patient with Cindy Oen NITROGEN OPERATOR 07/22/2018 Assessment of fever Medical Established Patient with Cindy Oen NITROGEN OPERATOR 07/22/2018 Bronchiolitis infectious Medical Establi shed Patient with Cindy Oen NITROGEN OPERATOR 07/22/2018 Upper respiratory infection Medical Esta blished Patient with Cindy Oen NITROGEN OPERATOR 07/22/2018 Findings Encounter Date Encounter for Immunization 1st COVID Vac cine with Xi Roberson PharmD 08/27/2020 Generalized anxiety disorder Telebeha vioral Health with [facility] Jacke [facility] 03/05/2020 Moderate recurrent major [facility] 03/05/2020 Nicotine dependence uncomplicated Tel ebehavioral Health with Mimipaty Dewitt [facility] 03/05/2020 Chronic sinusitis, unspecified Telemedic ine Establisted Patient with Maty Chandlerdoyle [facility] 03/05/2020 Magnesium deficiency Telemedicine Establ isted Patient with Maty Madoyle [facility] 03/05/2020 Nicotine dependence, unspeci fied, uncomplicated Telemedicine Establisted Patient with Maty Madoyle [facility] 03/05/2020 Vitamin D deficiency, unspecified Teleme dicine Establisted Patient with Maty Maag [facility] 03/05/2020 B07.9 - Viral wart, unspecified Medical Established Patient with Noemi Givens NITROGEN OPERATOR 01/23/2020 Epidermal inclusion cyst Medical Establi shed Patient with Noemi Chon [facility] 01/23/2020 L82.1 - Other seborrheic keratosis Medic al Established Patient with Noemi Givens NITROGEN OPERATOR 01/23/2020 Obesity due to excess calories Medical E stablished Patient with Noemi Givens [facility] 01/23/2020 Z68.39 - Body mass index (BM I) 39.0-39.9, adult Medical Established Patient with Noemi Givens NITROGEN OPERATOR 01/23/2020 Bipolar disorder, current ep isode hypomanic [facility] Body mass index Telemedicine with Matycara Love C [employer] UNLOADER HELPER 11/27/2019 Chronic sinusitis, unspecified [facility] Nicotine dependence, unspeci fied, uncomplicated Telemedicine with Maty Love NITROGEN OPERATOR 11/27/2019 Obesity due to excess calories Telemedicine with Maty Love NITROGEN OPERATOR 11/27/2019 Fibromyalgia Telemedicine with Maty Love Carlos [employer]LOADER HELPER 09/28/2019 Generalized anxiety disorder Telemedicine with Deandre Love NITROGEN OPERATOR 09/28/2019 Major depressive disorder, r ecurrent, moderate [facility] Nicotine dependence, cigaret leonel, uncomplicated [facility] Generalized anxiety disorder Establis hed Patient with Mimi Hupetere TERRAZZO WORKER 08/18/2019 Mild recurrent major depression Estab lished Patient with Mimi Hueve TERRAZZO WORKER 08/18/2019 Nicotine dependence uncomplicated BH Est ablished Patient with Mimi Hueve TERRAZZO WORKER 08/18/2019 Allergy, unspecified, initial encounter Medical Established Patient with Maty Love NITROGEN OPERATOR 08/18/2019 Body mass index (BMI) 38.0-38.9, adult M edical Established Patient with Maty Love NITROGEN OPERATOR 08/18/2019 Chronic obstructive pulmonar y disease, unspecified Medical [facility] Chronic pain syndrome Medical Establishe d Patient with Maty Love [facility] 08/18/2019 Diabetes Risk Test Score was five score 08/18/2019 Medical [facility] Fibromyalgia [facility] Generalized anxiety disorder Medical Est [facility] Major depressive disorder, r ecurrent, moderate Medical Established Patient with Maty Love NITROGEN OPERATOR 08/18/2019 Nicotine dependence, unspeci fied, uncomplicated Medical Established Patient with Maty Love NITROGEN OPERATOR 08/18/2019 Obesity due to excess calories Medical E stablished Patient with Maty Love NITROGEN OPERATOR 08/18/2019 Prediabetes Medical Established Patient with Maty Love NITROGEN OPERATOR 08/18/2019 Sleep disorder, unspecified Medical Esta blished Patient with Maty Chandlerag NITROGEN OPERATOR 08/18/2019 Acute laryngopharyngitis Medical Establi shed Patient with Cindy Walkern NITROGEN OPERATOR 07/13/2019 Acute pansinusitis unspecified Medical E stablished Patient with Cindy Oen NITROGEN OPERATOR 07/13/2019 Body mass index Medical Established Patient with Cindy Oen NITROGEN OPERATOR 07/13/2019 Obesity due to excess calories Medical E stablished Patient with Cindy Oen NITROGEN OPERATOR 07/13/2019 Generalized anxiety disorder BH Establis hed Patient with Mimi Murillopetere TERRAZZO WORKER 01/06/2019 Moderate recurrent major depression BH E stablished Patient with Mimi Hueve TERRAZZO WORKER 01/06/2019 Anxiety disorder NOS Medical Established Patient with Cindy Oen NITROGEN OPERATOR 01/06/2019 Anxiety disorder of unknown (axis III) etiology Medical Established Patient with Cindy Oen NITROGEN OPERATOR 01/06/2019 Depression Medical Established Patient with Cindy Oen NITROGEN OPERATOR 01/06/2019 Generalized anxiety disorder Medical Est ablished Patient with Cindy Oen NITROGEN OPERATOR 01/06/2019 Adjustment disorder BH Established Patie nt with Leilani REED 10/06/2018 Body mass index Medical Established Patient with Cindy Oen NITROGEN OPERATOR 10/06/2018 Dast - 10 Score was 0 10/06/2018 Medical Established Patient with Cindy Oen NITROGEN OPERATOR 10/06/2018 PHQ-9: total score was eight 10/06/2018 M edical Established Patient with Cindy Oen NITROGEN OPERATOR 10/06/2018 Viral gastroenteritis (Fairplay virus) Me dical Established Patient with Cindy Oen NITROGEN OPERATOR 10/06/2018 Viral infection Medical Established Patient with Cindy Oen NITROGEN OPERATOR 10/06/2018 swelling in [place]- seein g an ENT- trying to get shots for her allergies Medical Established Patient with Cindy Oen NITROGEN OPERATOR 08/11/2018 Allergic rhinitis Medical Established Patient with Cindy Oen NITROGEN OPERATOR 08/11/2018 Prehypertension Medical Established Patient with Cindy Oen NITROGEN OPERATOR 08/11/2018 Acute pharyngitis Medical Established Patient with Cindy Oen NITROGEN OPERATOR 07/22/2018 Assessment of cough Medical Established Patient with Cindy Oen NITROGEN OPERATOR 07/22/2018 Assessment of fever Medical Established Patient with Cindy Walkern NITROGEN OPERATOR 07/22/2018 Bronchiolitis infectious Medical Establi shed Patient with Cindy Oen NITROGEN OPERATOR 07/22/2018 Upper respiratory infection Medical Esta blished Patient with Cindy Oen NITROGEN OPERATOR 07/22/2018 Findings Encounter Date Exposure to a viral disease Telemedicine New Patient with Ro Austin NITROGEN OPERATOR 09/07/2020 Encounter for Immunization 1st COVID Vac cine with Xi Roberson PharmD 08/27/2020 Generalized anxiety disorder Telebeha vioral Health with Mimipaty Santiagoe [facility] 03/05/2020 Moderate recurrent major depression [facility] 03/05/2020 Nicotine dependence uncomplicated Tel [facility] 03/05/2020 Chronic sinusitis, unspecified Telemedic ine Establisted Patient with Maty Chandlerdoyle NITROGEN OPERATOR 03/05/2020 Magnesium deficiency Telemedicine Establ isted Patient with Maty Ivan NITROGEN OPERATOR 03/05/2020 Nicotine dependence, unspeci fied, uncomplicated Telemedicine Establisted Patient with Maty Madoyle NITROGEN OPERATOR 03/05/2020 Vitamin D deficiency, unspecified Teleme dicine Establisted Patient with Maty Maag [facility] 03/05/2020 B07.9 - Viral wart, unspecified Medical Established Patient with Noemi Chon NITROGEN OPERATOR 01/23/2020 Epidermal inclusion cyst Medical Establi shed Patient with Neomi Chon [facility] 01/23/2020 L82.1 - Other seborrheic keratosis Medic al Established Patient with Noemi Chon NITROGEN OPERATOR 01/23/2020 Obesity due to excess calories Medical E stablished Patient with Noemi Chon [facility] 01/23/2020 Z68.39 - Body mass index (BM I) 39.0-39.9, adult Medical Established Patient with Noemi Chon NITROGEN OPERATOR 01/23/2020 Bipolar disorder, current ep isode hypomanic Telemedicine with Maty Ivan NITROGEN OPERATOR 11/27/2019 Body mass index Telemedicine with Maty Gonzalez [employer] 11/27/2019 Chronic sinusitis, unspecified Telemedicine with Maty Ivan NITROGEN OPERATOR 11/27/2019 Nicotine dependence, unspeci fied, uncomplicated Telemedicine with Maty Ivan NITROGEN OPERATOR 11/27/2019 Obesity due to excess calories Telemedicine with Maty Love NITROGEN OPERATOR 11/27/2019 Fibromyalgia Telemedicine with Maty Gonzalez [employer] HEL[employer] 09/28/2019 Generalized anxiety disorder Telemedicine with Deandre Love NITROGEN OPERATOR 09/28/2019 Major depressive disorder, r ecurrent, moderate Telemedicine with Maty Love NITROGEN OPERATOR 09/28/2019 Nicotine dependence, cigaret leonel, uncomplicated Telemedicine with Maty Love NITROGEN OPERATOR 09/28/2019 Generalized anxiety disorder BH Establis hed Patient with Mimi Hueve TERRAZZO WORKER 08/18/2019 Mild recurrent major depression BH Estab lished Patient with Mimi Hueve TERRAZZO WORKER 08/18/2019 Nicotine dependence uncomplicated BH Est ablished Patient with Mimi Hueve TERRAZZO WORKER 08/18/2019 Allergy, unspecified, initial encounter Medical Established Patient with Maty Love NITROGEN OPERATOR 08/18/2019 Body mass index (BMI) 38.0-38.9, adult M edical Established Patient with Maty Love NITROGEN OPERATOR 08/18/2019 Chronic obstructive pulmonar y disease, unspecified Medical Established Patient with Maty Love NITROGEN OPERATOR 08/18/2019 Chronic pain syndrome Medical Establishe d Patient with Maty Love NITROGEN OPERATOR 08/18/2019 Diabetes Risk Test Score was five score 08/18/2019 Medical Established Patient with Maty Maag NITROGEN OPERATOR 08/18/2019 Fibromyalgia Medical Established Patient with Maty Maag NITROGEN OPERATOR 08/18/2019 Generalized anxiety disorder Medical Est ablished Patient with Maty Chandlerag NITROGEN OPERATOR 08/18/2019 Major depressive disorder, r ecurrent, moderate Medical Established Patient with Maty Chandlerag NITROGEN OPERATOR 08/18/2019 Nicotine dependence, unspeci fied, uncomplicated Medical Established Patient with Maty Maag NITROGEN OPERATOR 08/18/2019 Obesity due to excess calories Medical E stablished Patient with Maty Maag NITROGEN OPERATOR 08/18/2019 Prediabetes Medical Established Patient with Maty Maag NITROGEN OPERATOR 08/18/2019 Sleep disorder, unspecified Medical Esta blished Patient with Maty Maag NITROGEN OPERATOR 08/18/2019 Acute laryngopharyngitis Medical Establi shed Patient with Cindy Oen NITROGEN OPERATOR 07/13/2019 Acute pansinusitis unspecified Medical E stablished Patient with Cindy Oen NITROGEN OPERATOR 07/13/2019 Body mass index Medical Established Patient with Cindy Oen NITROGEN OPERATOR 07/13/2019 Obesity due to excess calories Medical E stablished Patient with Cindy Oen NITROGEN OPERATOR 07/13/2019 Generalized anxiety disorder BH Establis hed Patient with Mimi Hueve TERRAZZO WORKER 01/06/2019 Moderate recurrent major depression BH E stablished Patient with Mimi Hueve TERRAZZO WORKER 01/06/2019 Anxiety disorder NOS Medical Established Patient with Cindy Oen NITROGEN OPERATOR 01/06/2019 Anxiety disorder of unknown (axis III) etiology Medical Established Patient with Cindy Oen NITROGEN OPERATOR 01/06/2019 Depression Medical Established Patient with Cindy Oen NITROGEN OPERATOR 01/06/2019 Generalized anxiety disorder Medical Est ablished Patient with Cindy Oen NITROGEN OPERATOR 01/06/2019 Adjustment disorder Established Patie nt with Leilani SQUIRESW-S 10/06/2018 Body mass index Medical Established Patient with Cindy Oen NITROGEN OPERATOR 10/06/2018 Dast - 10 Score was 0 10/06/2018 Medical Established Patient with Cindy Oen NITROGEN OPERATOR 10/06/2018 PHQ-9: total score was eight 10/06/2018 M edical Established Patient with Cindy Oen NITROGEN OPERATOR 10/06/2018 Viral gastroenteritis (Fairplay virus) Me dical Established Patient with Cindy Oen NITROGEN OPERATOR 10/06/2018 Viral infection Medical Established Patient with Cindy Oen NITROGEN OPERATOR 10/06/2018 swelling in [place]- seein g an ENT- trying to get shots for her allergies Medical Established Patient with Cindy Oen NITROGEN OPERATOR 08/11/2018 Allergic rhinitis Medical Established Patient with Cindy Oen NITROGEN OPERATOR 08/11/2018 Prehypertension Medical Established Patient with Cindy Oen NITROGEN OPERATOR 08/11/2018 Acute pharyngitis Medical Established Patient with Cindy Oen NITROGEN OPERATOR 07/22/2018 Assessment of cough Medical Established Patient with Cindy Oen NITROGEN OPERATOR 07/22/2018 Assessment of fever Medical Established Patient with Cindy Oen NITROGEN OPERATOR 07/22/2018 Bronchiolitis infectious Medical Establi shed Patient with Cindy Oen NITROGEN OPERATOR 07/22/2018 Upper respiratory infection Medical Esta blished Patient with Cindy Oen NITROGEN OPERATOR 07/22/2018 Findings Encounter Date Generalized anxiety disorder Telebeha vioral Health with Mimi Hueve TERRAZZO WORKER 03/05/2020 Moderate recurrent major depression T elebehavioral Health with Mimi Hueve TERRAZZO WORKER 03/05/2020 Nicotine dependence uncomplicated Tel ebehavioral Health with Mimi Hueve TERRAZZO WORKER 03/05/2020 B07.9 - Viral wart, unspecified Medical Established Patient with Noemi Chon NITROGEN OPERATOR 01/23/2020 Epidermal inclusion cyst Medical Establi shed Patient with Noemi Chon NITROGEN OPERATOR 01/23/2020 L82.1 - Other seborrheic keratosis Medic al Established Patient with Noemi Givens NITROGEN OPERATOR 01/23/2020 Obesity due to excess calories Medical E stablished Patient with Noemi Givens NITROGEN OPERATOR 01/23/2020 Z68.39 - Body mass index (BM I) 39.0-39.9, adult Medical Established Patient with Noemi Givens NITROGEN OPERATOR 01/23/2020 Bipolar disorder, current ep isode hypomanic [facility] Body mass index Telemedicine with Maty Madoyle C [employer]LOADER HELPER 11/27/2019 Chronic sinusitis, unspecified Telemedicine with Maty [facility] 11/27/2019 Nicotine dependence, unspeci fied, uncomplicated [facility]2019 Obesity due to excess calories [facility]2019 Fibromyalgia Telemedicine with Maty Love Carlos [employer] UNLOADER HELPER 09/28/2019 Generalized anxiety disorder Telemedicine with Deandre nolan Madoyle NITROGEN OPERATOR 09/28/2019 Major depressive disorder, r ecurrent, moderate Telemedicine with Maty [facility] 09/28/2019 Nicotine dependence, cigaret leonel, uncomplicated Telemedicine with Maty [facility] 09/28/2019 Generalized anxiety disorder Establis hed Patient with Mimi Hupetere TERRAZZO WORKER 08/18/2019 Mild recurrent major depression Estab lished Patient with Mimi Hueve TERRAZZO WORKER 08/18/2019 Nicotine dependence uncomplicated BH Est ablished Patient with Mimi Hueve TERRAZZO WORKER 08/18/2019 Allergy, unspecified, initial encounter Medical Established Patient with Maty Love [facility] 08/18/2019 Body mass index (BMI) 38.0-38.9, adult M edical [facility] Chronic obstructive pulmonar y disease, unspecified Medical Established Patient with Maty [facility] 08/18/2019 Chronic pain syndrome Medical [facility]ishe d [facility] Diabetes Risk Test Score was five score 08/18/2019 Medical [facility] Fibromyalgia Medical Established Patient with Maty [facility] 08/18/2019 Generalized anxiety disorder Medical Est [facility]lished [facility] Major depressive disorder, r ecurrent, moderate Medical [facility]2019 Nicotine dependence, unspeci fied, uncomplicated Medical Established Patient with Maty Love NITROGEN OPERATOR 08/18/2019 Obesity due to excess calories Medical E stablished Patient with Maty Love NITROGEN OPERATOR 08/18/2019 Prediabetes Medical Established Patient with Maty Love NITROGEN OPERATOR 08/18/2019 Sleep disorder, unspecified Medical Esta blished Patient with Maty Chandlerag NITROGEN OPERATOR 08/18/2019 Acute laryngopharyngitis Medical Establi shed Patient with Cindy Walkern NITROGEN OPERATOR 07/13/2019 Acute pansinusitis unspecified Medical E stablished Patient with Cindy Oen NITROGEN OPERATOR 07/13/2019 Body mass index Medical Established Patient with Cindy Oen NITROGEN OPERATOR 07/13/2019 Obesity due to excess calories Medical E stablished Patient with Cindy Oen NITROGEN OPERATOR 07/13/2019 Generalized anxiety disorder BH Establis hed Patient with Mimi Santiagoe TERRAZZO WORKER 01/06/2019 Moderate recurrent major depression BH E stablished Patient with Mimi Hueve TERRAZZO WORKER 01/06/2019 Anxiety disorder NOS Medical Established Patient with Cindy Oen NITROGEN OPERATOR 01/06/2019 Anxiety disorder of unknown (axis III) etiology Medical Established Patient with Cindy Oen NITROGEN OPERATOR 01/06/2019 Depression Medical Established Patient with Cindy Oen NITROGEN OPERATOR 01/06/2019 Generalized anxiety disorder Medical Est ablished Patient with Cindy Oen NITROGEN OPERATOR 01/06/2019 Adjustment disorder BH Established Patie nt with Leilani REED 10/06/2018 Body mass index Medical Established Patient with Cindy Oen NITROGEN OPERATOR 10/06/2018 Dast - 10 Score was 0 10/06/2018 Medical Established Patient with Cindy Oen NITROGEN OPERATOR 10/06/2018 PHQ-9: total score was eight 10/06/2018 M edical Established Patient with Cindy Oen NITROGEN OPERATOR 10/06/2018 Viral gastroenteritis (Fairplay virus) Me dical Established Patient with Cindy Oen NITROGEN OPERATOR 10/06/2018 Viral infection Medical Established Patient with Cindy Oen NITROGEN OPERATOR 10/06/2018 swelling in [place]- seein g an ENT- trying to get shots for her allergies Medical Established Patient with Cindy Oen NITROGEN OPERATOR 08/11/2018 Allergic rhinitis Medical Established Patient with Cindy Oen NITROGEN OPERATOR 08/11/2018 Prehypertension Medical Established Patient with Cindy Oen NITROGEN OPERATOR 08/11/2018 Acute pharyngitis Medical Established Patient with Cindy Oen NITROGEN OPERATOR 07/22/2018 Assessment of cough Medical Established Patient with Cindy Oen NITROGEN OPERATOR 07/22/2018 Assessment of fever Medical Established Patient with Cindy Aaronn NITROGEN OPERATOR 07/22/2018 Bronchiolitis infectious Medical Establi shed Patient with Cindy Oen NITROGEN OPERATOR 07/22/2018 Upper respiratory infection Medical Esta blished Patient with Cindy Oen NITROGEN OPERATOR 07/22/2018 Findings Encounter Date Dependence on nicotine in ci garettes - uncomplicated BH Established Patient with Mimi Hueve TERRAZZO WORKER 09/19/2020 Moderate recurrent major depression BH E stablished Patient with Mimi Hueve TERRAZZO WORKER 09/19/2020 Sleep disorder Established Patie nt with Mimi Hueve TERRAZZO WORKER 09/19/2020 Body mass index [BMI] 37.0-37.9, adult M edical Established Patient with Maty Maag NITROGEN OPERATOR 09/19/2020 Chronic pain Medical Established Patient with Maty Maag NITROGEN OPERATOR 09/19/2020 Dependence on nicotine in ci garettes - uncomplicated Medical Established Patient with Maty Maag NITROGEN OPERATOR 09/19/2020 Fibromyalgia Medical Established Patient with Maty Maag NITROGEN OPERATOR 09/19/2020 Generalized anxiety disorder Medical Est ablished Patient with Maty Maag NITROGEN OPERATOR 09/19/2020 Moderate recurrent major depression [facility] [place] Established Patient with Maty Maag NITROGEN OPERATOR 09/19/2020 Sleep disorder Medical Established Patient with Maty Maag NITROGEN OPERATOR 09/19/2020 Exposure to a viral disease Telemedicine New Patient with Ro Austin NITROGEN OPERATOR 09/07/2020 Encounter for Immunization 1st COVID Vac cine with Xi Roberson PharmD 08/27/2020 Generalized anxiety disorder Telebeha vioral Health with Mimi Jacke TERRAZZO WORKER 03/05/2020 Moderate recurrent major depression T elebehavioral Health with Mimi Hueve TERRAZZO WORKER 03/05/2020 Nicotine dependence uncomplicated Tel ebehavioral Health with Mimi Hueve TERRAZZO WORKER 03/05/2020 Chronic sinusitis, unspecified Telemedic ine Establisted Patient with Maty Maag NITROGEN OPERATOR 03/05/2020 Magnesium deficiency Telemedicine Establ isted Patient with Maty Maag NITROGEN OPERATOR 03/05/2020 Nicotine dependence, unspeci fied, uncomplicated Telemedicine Establisted Patient with Maty Maag NITROGEN OPERATOR 03/05/2020 Vitamin D deficiency, unspecified Teleme dicine Establisted Patient with Maty Maag NITROGEN OPERATOR 03/05/2020 B07.9 - Viral wart, unspecified Medical Established Patient with Noemi Givens NITROGEN OPERATOR 01/23/2020 Epidermal inclusion cyst Medical Establi shed Patient with Noemi Givens NITROGEN OPERATOR 01/23/2020 L82.1 - Other seborrheic keratosis Medic al Established Patient with Noemi Givens NITROGEN OPERATOR 01/23/2020 Obesity due to excess calories Medical E stablished Patient with Noemi Givens NITROGEN OPERATOR 01/23/2020 Z68.39 - Body mass index (BM I) 39.0-39.9, adult Medical Established Patient with Noemi Givens NITROGEN OPERATOR 01/23/2020 Bipolar disorder, current ep isode hypomanic Telemedicine with Maty Chandler NITROGEN OPERATOR 11/27/2019 Body mass index Telemedicine with Maty Madoyle C CAR UNLOADER HELPER 11/27/2019 Chronic sinusitis, unspecified Telemedicine with Maty Chandler NITROGEN OPERATOR 11/27/2019 Nicotine dependence, unspeci fied, uncomplicated Telemedicine with Maty Chandler NITROGEN OPERATOR 11/27/2019 Obesity due to excess calories Telemedicine with Maty Chandler NITROGEN OPERATOR 11/27/2019 Fibromyalgia Telemedicine with Maty Ivan C CAR UNLOADER HELPER 09/28/2019 Generalized anxiety disorder Telemedicine with Deandre Love NITROGEN OPERATOR 09/28/2019 Major depressive disorder, r ecurrent, moderate Telemedicine with Maty [facility] 09/28/2019 Nicotine dependence, cigaret leonel, uncomplicated [facility] Generalized anxiety disorder BH Establis hed Patient with Mimi Hueve TERRAZZO WORKER 08/18/2019 Mild recurrent major depression BH Estab lished Patient with Mimi Hueve TERRAZZO WORKER 08/18/2019 Nicotine dependence uncomplicated BH Est ablished Patient with Mimi Hueve TERRAZZO WORKER 08/18/2019 Allergy, unspecified, initial encounter Medical Established Patient with Maty Love NITROGEN OPERATOR 08/18/2019 Body mass index (BMI) 38.0-38.9, adult M edical Established Patient with Matycara Love NITROGEN OPERATOR 08/18/2019 Chronic obstructive pulmonar y disease, unspecified Medical Established Patient with Maty Maag NITROGEN OPERATOR 08/18/2019 Chronic pain syndrome Medical Establishe d Patient with Maty Madoyle NITROGEN OPERATOR 08/18/2019 Diabetes Risk Test Score was five score 08/18/2019 Medical Established Patient with Maty Maag NITROGEN OPERATOR 08/18/2019 Fibromyalgia Medical Established Patient with Maty Maag NITROGEN OPERATOR 08/18/2019 Generalized anxiety disorder Medical Est ablished Patient with Maty Maag NITROGEN OPERATOR 08/18/2019 Major depressive disorder, r ecurrent, moderate Medical Established Patient with Maty Love NITROGEN OPERATOR 08/18/2019 Nicotine dependence, unspeci fied, uncomplicated Medical Established Patient with Maty Love NITROGEN OPERATOR 08/18/2019 Obesity due to excess calories Medical E stablished Patient with Maty Love NITROGEN OPERATOR 08/18/2019 Prediabetes Medical Established Patient with Maty Love NITROGEN OPERATOR 08/18/2019 Sleep disorder, unspecified Medical Esta blished Patient with Maty Love NITROGEN OPERATOR 08/18/2019 Acute laryngopharyngitis Medical Establi shed Patient with Cindy Walkern NITROGEN OPERATOR 07/13/2019 Acute pansinusitis unspecified Medical E stablished Patient with Cindy Oen NITROGEN OPERATOR 07/13/2019 Body mass index Medical Established Patient with Cnidy Oen NITROGEN OPERATOR 07/13/2019 Obesity due to excess calories Medical E stablished Patient with Cindy Oen NITROGEN OPERATOR 07/13/2019 Generalized anxiety disorder BH Establis hed Patient with Mimi Jacke TERRAZZO WORKER 01/06/2019 Moderate recurrent major depression BH E stablished Patient with Mimi Hueve TERRAZZO WORKER 01/06/2019 Anxiety disorder NOS Medical Established Patient with Cindy Oen NITROGEN OPERATOR 01/06/2019 Anxiety disorder of unknown (axis III) etiology Medical Established Patient with Cindy Oen NITROGEN OPERATOR 01/06/2019 Depression Medical Established Patient with Cindy Oen NITROGEN OPERATOR 01/06/2019 Generalized anxiety disorder Medical Est ablished Patient with Cindy Oen NITROGEN OPERATOR 01/06/2019 Adjustment disorder BH Established Patie nt with Leilani ESCOBAR-S 10/06/2018 Body mass index Medical Established Patient with Cindy Oen NITROGEN OPERATOR 10/06/2018 Dast - 10 Score was 0 10/06/2018 Medical Established Patient with Cindy Oen NITROGEN OPERATOR 10/06/2018 PHQ-9: total score was eight 10/06/2018 M edical Established Patient with Cindy Oen NITROGEN OPERATOR 10/06/2018 Viral gastroenteritis (Fairplay virus) Me dical Established Patient with Cindy Oen NITROGEN OPERATOR 10/06/2018 Viral infection Medical Established Patient with Cindy Oen NITROGEN OPERATOR 10/06/2018 swelling in veneculla- seein g an ENT- trying to get shots for her allergies Medical Established Patient with Cindy Oen NITROGEN OPERATOR 08/11/2018 Allergic rhinitis Medical Established Patient with Cindy Oen NITROGEN OPERATOR 08/11/2018 Prehypertension Medical Established Patient with Cindy Oen NITROGEN OPERATOR 08/11/2018 Acute pharyngitis Medical Established Patient with Cindy Oen NITROGEN OPERATOR 07/22/2018 Assessment of cough Medical Established Patient with Cindy Oen NITROGEN OPERATOR 07/22/2018 Assessment of fever Medical Established Patient with Cindy Oen NITROGEN OPERATOR 07/22/2018 Bronchiolitis infectious Medical Establi shed Patient with Cindy Oen NITROGEN OPERATOR 07/22/2018 Upper respiratory infection Medical Esta blished Patient with Cindy Oen NITROGEN OPERATOR 07/22/2018 Findings Encounter Date Dependence on nicotine in ci garettes - uncomplicated BH Established Patient with Mimi Hueve TERRAZZO WORKER 09/19/2020 Moderate recurrent major depression BH E stablished Patient with Mimi Hueve TERRAZZO WORKER 09/19/2020 Sleep disorder BH Established Patie nt with Mimi Hueve TERRAZZO WORKER 09/19/2020 Body mass index [BMI] 37.0-37.9, adult M edical Established Patient with Maty Maag NITROGEN OPERATOR 09/19/2020 Chronic pain Medical Established Patient with Maty Maag NITROGEN OPERATOR 09/19/2020 Dependence on nicotine in ci garettes - uncomplicated Medical Established Patient with Maty Maag NITROGEN OPERATOR 09/19/2020 Encounter for screening for diabetes mellitus Medical Established Patient with Maty Maag NITROGEN OPERATOR 09/19/2020 Fibromyalgia Medical Established Patient with Maty Maag NITROGEN OPERATOR 09/19/2020 Generalized anxiety disorder Medical Est ablished Patient with Maty Maag NITROGEN OPERATOR 09/19/2020 Moderate recurrent major depression [facility] Established Patient with Maty Maag NITROGEN OPERATOR 09/19/2020 Sleep disorder Medical Established Patient with Maty Maag NITROGEN OPERATOR 09/19/2020 Exposure to a viral disease Telemedicine New Patient with Ro Austin NITROGEN OPERATOR 09/07/2020 Encounter for Immunization 1st COVID Vac cine with Xi Roberson PharmD 08/27/2020 Generalized anxiety disorder Telebeha vioral Health with Mimi Hueve TERRAZZO WORKER 03/05/2020 Moderate recurrent major depression T elebehavioral Health with Mimi Hueve TERRAZZO WORKER 03/05/2020 Nicotine dependence uncomplicated Tel ebehavioral Health with Mimi Hueve TERRAZZO WORKER 03/05/2020 Chronic sinusitis, unspecified Telemedic ine Establisted Patient with Maty Maag NITROGEN OPERATOR 03/05/2020 Magnesium deficiency Telemedicine Establ isted Patient with Maty Maag NITROGEN OPERATOR 03/05/2020 Nicotine dependence, unspeci fied, uncomplicated [facility]medicine [facility] Vitamin D deficiency, unspecified Teleme dicine Establisted Patient with Maty [facility] 03/05/2020 B07.9 - Viral wart, unspecified Medical Established Patient with Noemi Givens [facility] 01/23/2020 Epidermal inclusion cyst Medical Establi shed Patient with Noemi Givens [facility] 01/23/2020 L82.1 - Other seborrheic keratosis Medic al Established Patient with Noemi [facility] 01/23/2020 Obesity due to excess calories Medical E stablished Patient with Noemi Givens [facility] 01/23/2020 Z68.39 - Body mass index (BM I) 39.0-39.9, adult Medical Established Patient with Noemi [facility] 01/23/2020 Bipolar disorder, current ep isode hypomanic Telemedicine with [facility] 11/27/2019 Body mass index Telemedicine with Maty Geraldine Carlos CAR UNLOADER HELPER 11/27/2019 Chronic sinusitis, unspecified Telemedicine with [facility] 11/27/2019 Nicotine dependence, unspeci fied, uncomplicated Telemedicine with [facility] 11/27/2019 Obesity due to excess calories Telemedicine with [facility] 11/27/2019 Fibromyalgia Telemedicine with [facility] C CAR UNLOADER HELPER 09/28/2019 Generalized anxiety disorder Telemedicine with Deandre Love [facility] 09/28/2019 Major depressive disorder, r ecurrent, moderate Telemedicine with [facility] 09/28/2019 Nicotine dependence, cigaret leonel, uncomplicated Telemedicine with [facility] 09/28/2019 Generalized anxiety disorder Establis hed Patient with Mimipaty Santiagoe [facility] 08/18/2019 Mild recurrent major depression BH Estab lished Patient with [facility] Hueve [facility] 08/18/2019 Nicotine dependence uncomplicated [facility] 08/18/2019 Allergy, unspecified, initial encounter Medical Established Patient with Maty [facility] 08/18/2019 Body mass index (BMI) 38.0-38.9, adult M edical Established Patient with Maty [facility] 08/18/2019 Chronic obstructive pulmonar y disease, unspecified Medical Established Patient with Maty [facility] 08/18/2019 Chronic pain syndrome Medical Establishe d Patient with Maty [facility] 08/18/2019 Diabetes Risk Test Score was five score 08/18/2019 Medical Established Patient with Maty Love NITROGEN OPERATOR 08/18/2019 Fibromyalgia Medical Established Patient with Maty Love NITROGEN OPERATOR 08/18/2019 Generalized anxiety disorder Medical Est ablished Patient with Maty Love NITROGEN OPERATOR 08/18/2019 Major depressive disorder, r ecurrent, moderate Medical Established Patient with Maty Love NITROGEN OPERATOR 08/18/2019 Nicotine dependence, unspeci fied, uncomplicated Medical Established Patient with Maty Love NITROGEN OPERATOR 08/18/2019 Obesity due to excess calories Medical E stablished Patient with Maty Love NITROGEN OPERATOR 08/18/2019 Prediabetes Medical Established Patient with Maty Love NITROGEN OPERATOR 08/18/2019 Sleep disorder, unspecified Medical Esta blished Patient with Maty Love NITROGEN OPERATOR 08/18/2019 Acute laryngopharyngitis Medical Establi shed Patient with Cindy Oen NITROGEN OPERATOR 07/13/2019 Acute pansinusitis unspecified Medical E stablished Patient with Cindy Oen NITROGEN OPERATOR 07/13/2019 Body mass index Medical Established Patient with Cindy Oen NITROGEN OPERATOR 07/13/2019 Obesity due to excess calories Medical E stablished Patient with Cindy Oen NITROGEN OPERATOR 07/13/2019 Generalized anxiety disorder BH Establis hed Patient with Mimi Jacke TERRAZZO WORKER 01/06/2019 Moderate recurrent major depression BH E stablished Patient with Mimi Hueve TERRAZZO WORKER 01/06/2019 Anxiety disorder NOS Medical Established Patient with Cindy Oen NITROGEN OPERATOR 01/06/2019 Anxiety disorder of unknown (axis III) etiology Medical Established Patient with Cindy Oen NITROGEN OPERATOR 01/06/2019 Depression Medical Established Patient with Cindy Oen NITROGEN OPERATOR 01/06/2019 Generalized anxiety disorder Medical Est ablished Patient with Cindy Oen NITROGEN OPERATOR 01/06/2019 Adjustment disorder BH Established Patie nt with Leilani SQUIRESW-S 10/06/2018 Body mass index Medical Established Patient with Cindy Oen NITROGEN OPERATOR 10/06/2018 Dast - 10 Score was 0 10/06/2018 Medical Established Patient with Cindy Oen NITROGEN OPERATOR 10/06/2018 PHQ-9: total score was eight 10/06/2018 M edical Established Patient with Cindy Oen NITROGEN OPERATOR 10/06/2018 Viral gastroenteritis ([place] virus) Me dical Established Patient with Cindy Oen NITROGEN OPERATOR 10/06/2018 Viral infection Medical Established Patient with Cindy Oen NITROGEN OPERATOR 10/06/2018 swelling in [place]- seein g an ENT- trying to get shots for her allergies Medical Established Patient with Cindy Oen NITROGEN OPERATOR 08/11/2018 Allergic rhinitis Medical Established Patient with Cindy Oen NITROGEN OPERATOR 08/11/2018 Prehypertension Medical Established Patient with Cindy Oen NITROGEN OPERATOR 08/11/2018 Acute pharyngitis Medical Established Patient with Cindy Oen NITROGEN OPERATOR 07/22/2018 Assessment of cough Medical Established Patient with Cindy Oen NITROGEN OPERATOR 07/22/2018 Assessment of fever Medical Established Patient with Cindy Oen NITROGEN OPERATOR 07/22/2018 Bronchiolitis infectious Medical Establi shed Patient with Cindy Oen NITROGEN OPERATOR 07/22/2018 Upper respiratory infection Medical Esta blished Patient with Cindy Oen NITROGEN OPERATOR 07/22/2018 Instructions Instructions not supported for this [...] Chief Complaint COPD/SPN J44.9 Chief Complaint n/v/d Chief Complaint Admit Date HIP December 15, 2024 8:48 pm Additional Source Comments INFORMATION SOURCE (unrecogn ized section and content) DATE CREATED AUTHOR 12/15/2017 [facility] DATE CREATED AUTHOR AUTHOR'S ORGANIZ ATION 10/02/2018 [facility] DATE CREATED AUTHOR AUTHOR'S ORGANIZ ATION 08/05/2020 [facility] DATE CREATED AUTHOR AUTHOR'S ORGANIZ ATION 12/12/2020 [facility] DATE CREATED AUTHOR AUTHOR'S ORGANIZ ATION 12/27/2021 [facility] DATE CREATED AUTHOR AUTHOR'S ORGANIZ ATION 04/07/2023 [facility] DATE CREATED AUTHOR AUTHOR'S ORGANIZ ATION 12/22/2024 [facility] DATE CREATED AUTHOR AUTHOR'S ORGANIZ ATION 01/19/2025 [facility] Evaluations & Outcomes (unre cognized section and [...] reviewed 09/28/2019 Telehealth Pre-Visit Reviewed by mario stein 09/28/2019 A recent immunization for flu 07/13/2019 [...] reviewed 09/28/2019 Telehealth Pre-Visit Reviewed by mario stein 09/28/2019 A recent immunization for flu 07/13/2019 [...] Bethany Nesbitt APRN CNP Primary Care Provider, Attmanasa nding Provider Active Team Status: Inactive Member Role Status Kristy Nesbitt APRN CNP Primary Care Provider Paty Quick DO Attending Provider Active Team Status: Inactive Member Role Status Dates Bethany Nesbitt APRN CNP Primary Care Provider Activ e Tiffany R Olivia , [employer] NITROGEN OPERATOR Attending Provider Active Team Status: Active Member Role Status Dates Dr. Kyle Sparrow MD Family Provider Active No Primary Care Physician Primary Care Provider Active Team Status: Inactive Member Role Status Dates No Primary Care Physician Primary Care Provider Active Dr. Jose Jarquin MD Emergency Provider Active Team Status: Active Member Role/Relationship Status Dates Dr. Mayra Cortez MD Primary Care Provider Active Team Status: Inactive Member Role/Relationship Status Dates Dr. Mayra Cortez MD Primary Care Provider Active Start: December 15, 2024 End: December 15, 2024 Dr. Sky Lin MD Emergency Provider Active S tart: December 15, 2024 End: December 15, 2024 FOR RECORDS PERTAINING TO PATIENTS WHO ARE [...] BE BASED ON THE PRIMARY CLINICAL RECORDS. [facility] [employer], [facility]. provides no warranty or guarantee of the accuracy or completeness of information in this document.
[2025-01-28 22:10] LABS: Hematocrit 43.9 % (37-47); Hemoglobin 14.4 g/dL (12.0-15.0); Immature Granulocytes Count 0.010 X10^3/uL (0.0-0.0); Mean Corp Hgb Conc 32.8 g/dL (32-36); Mean Corpuscular Volume 90.1 fL (81-99); Mean Platelet Vol. 9.7 fl (6.2-12.0); NRBC Flagged by Analyzer 0 % (0-5); Platelet Count 308 K/mm3 (150-450); RBC Distribution Width CV 12.7 % (11.6-14.6); RBC Distribution Width SD 41.7 fl (35.1-43.9); Red Blood Count 4.87 M/mm3 (4.2-5.4); White Blood Count 6.8 K/mm3 (4.4-11.0)
[2025-01-28 22:27] LABS: Anion Gap 10 (5-15); BUN 8 mg/dL (4-19); BUN/Creat Ratio 9.6 RATIO (10-20); Calcium,Total 9.0 mg/dL (7.6-11.0); Carbon Dioxide 26.5 mmol/L (21.0-32.0); Chloride 102 mmol/L (98-108); Estimated Creatinine Clearance 68.64 ml/min (50-250); Glucose 98 mg/dL (70-99); Potassium 4.3 mmol/L (3.3-5.1); Troponin T High Sensitivity < 6 ng/L (<=14)
[2025-01-29] VITALS: BP 136/76; PULSE 67; RESP 16; O2SAT 98
[2025-01-29 00:43] LABS: Troponin T High Sens 2 HR < 6 ng/L (<=14)
[2025-01-29 01:08] VITALS: BP 140/82; PULSE 73; RESP 18; TEMP 36.6; O2SAT 98
== END 2025-01-29 01:12 | disposition home or self-care (01) ==
PROVIDERS: Emergency Provider Emergency Medicine; PCP Student in an Organized Health Care Education/Training Program; Visit Provider Emergency Medicine
DX: R07.9 Chest pain, unspecified (principal); J44.9 Chronic obstructive pulmonary disease, unspecified
CPT/HCPCS: 71045; 80048; 84484; 85025; 93005; 99284; A4216